=== PATIENT | female | born 1945 | race Caucasian/White ===

== ENCOUNTER → 2017-02-09 | Outpatient (CLI) | payer OTHER ==
[~2017-02-09] MED LIST: CALC667C4 PO; CLOP1TAB15 PO; CLR10 PO; MOME50SP5; MULT-506 PO; OMEG10007 PO; PRLSR20 PO; THEO200T27 PO; [UNRECOGNIZED DRUG - CODE] INH; [UNRECOGNIZED DRUG - OTHER] PO
--- NOTE | 2017-02-09 13:16 | MAMMOGRAPHY REPORT ---
BILATERAL DIGITAL SCREENING MAMMOGRAM WITH CAD: 02/09/2017 CLINICAL HISTORY: Routine screening. Patient has no complaints. TECHNIQUE: Bilateral CC and MLO views were obtained. Current study was also evaluated with a Compute r Aided Detection (CAD) system. COMPARISON: Comparison is made to exams dated: 02/09/2016 mammogram, 02/05/2015 mammogram, 02/04/2014 m ammogram, 01/19/2013 mammogram, 01/04/2013 mammogram, and 12/01/2011 mammogram - [facility] enter. BREAST COMPOSITION: There are scattered areas of fibroglandular density in both breasts. FINDINGS: There are benign rim calcifications in the breasts. A stable ribbon-shaped biopsy marker c lip in the right breast. Minimal vascular calcification. No suspicious mass, architectural distorti on or cluster of microcalcifications is seen. IMPRESSION: ACR BI-RADS CATEGORY 1: NEGATIVE There is no mammographic evidence of malignancy. A 1 year screening mammogram is recommended. The pa tient will receive written notification of the results. Approximately 10% of breast cancers are not detected with mammography. A negative mammographic report should not delay biopsy if a clinically suggestive mass is present. Sasha Oneal M.D. ay/:02/09/2017 12:08:58 Senior Landscape Architect: Yakelin CLIFTON(R)(Hazel)(PATY), [facility] letter sent: Normal 1/2 BI-RADS Code: ACR BI-RADS Category 1: Negative
== END | disposition home or self-care (01) ==
LOC: C.MAMM 11:07
PROVIDERS: ATTEND Internal Medicine
DX: Z12.31 Encounter for screening mammogram for malignant neoplasm of breast (principal)

== ENCOUNTER 2023-03-03 15:37 | Inpatient (IN) ==
--- NOTE | 2023-03-03 16:03 | ED Triage Note ---
Date of Service March 03, 2023 History of Present Illness This patient was briefly evaluated while in triage. An abbreviated physical exam was performed. This patient is a 77-year-old Female who presents to the ED for evaluation of an abnormal CT scan. She was recently treated for diverticulitis and finished her antibiotics last week. She was still having pain and her outpatient provider ordered a CT scan which showed an abscess. She was sent in for evaluation. Physical Exam VITALS: Vitals are noted on the nurse's note and reviewed by myself. GENERAL: This is a 77-year-old female, in no acute distress, well-developed well-nourished. HEART: Regular rate and rhythm without murmurs gallops or rubs. LUNGS: Clear to auscultation bilaterally without wheezes, rales or rhonchi. ABDOMEN: Tenderness in the RLQ. NEURO: Patient was alert and oriented to person place and time. Initial orders for labs and / or imaging were placed and patient was placed in the waiting area until a bed is available. Please see further documentation for the full ED course.
--- NOTE | 2023-03-03 16:43 | History & Physical Report ---
Date of Service March 03, 2023 Assessment & Plan (1) Diverticulitis: (2) Abscess of sigmoid colon: Plan: - Admit to med surg with tele - Consult general surgery and GI - Obtain Blood cultures x 2, lactic acid, lipase, CBC w/ diff, UA --- WBC was 7.8 outpatient and today is 7.9, lactate 1.7 - NPO, meds and sips/chips ok - LR at 80 ml/hr for hydration - Obtain EKG and CXR 1view - IV antibiotics to start - zosyn IV and vanc for failure of outpt antibiotics, previous hospitalization, and now with abscess - Check MRSA swab - CT abd pelvis was done earlier today as outpatient, 03/03 and showed an abscess in the sigmoid colon along with diverticulitis. IMPRESSION: 1. Diverticulitis of the sigmoid colon with an abscess abutting the left aspect of the distal sigmoid colon measuring 3.2 x 2.0 x 3.4 cm. 2. Mild nonspecific gallbladder wall thickening. 3. Small hiatal hernia. 4. Narrowing at the origin of the celiac axis, likely due to a combination of median arcuate ligament compression and atherosclerotic changes. (3) Hypertension: Plan: - Chronic, stable - Cont metoprolol succinate 25 mg QAM, BP slightly elevated at 140/83, monitor - Tachycardia also present likely due to the above (4) Hyperlipidemia: Plan: - Chronic, stable - Cont fish oil, rosuvastatin (5) Asthma: Plan: - Check CXR - COPD is documented in [facility] outpt chart - does not seem like this as she is not on inhalers, never smoked, may need to look further to see if PFTs were conducted. - Chronic cough, minimal sputum production - Does not wear supplemental o2 at baseline (6) Degenerative arthritis of knee, bilateral: Plan: - Chronic, stable (7) GERD (gastroesophageal reflux disease): Plan: - Chronic, stable cont omeprazole DVT ppx: teds, scds, no chemical ppx in the setting of possible procedure Lines: Obtain 2 PIV GI/FEN: NPO, continue LR at 80 ml/hr CODE: FULL Dispo: From home, likely to remain in the hospital x 1-2 days History of Present Illness Chief Complaint: Abdominal pain Primary Care Provider: Manoj Weber, DO This is a 77 year old female with a history of Asthma, COPD, CAD, HTN, Hyperlipidemia, osteoarthritis and GERD who presented to PCP office on 03/02 for continued abdominal pain. Per chart review, it appears she was treated initially on 02/07 with cipro/flagyl by PCP when her abdominal pain and constipation had been present for a week alre madi at that point. Patient was admitted to [facility] 02/10/2023- 02/14/2023 and diagnosed with Diverticulitis. She was treated with antibiotics for 10 days with cefdinir and flagyl, which finished on 02/21. Pt was referred to follow up with GI for an outpatient colonoscopy in about 6 weeks. Cholestyramine was added to her regimen as her bowels switched to being diarrhea, and was treated with such for loose stools at that time. She represented to her PCP office for hospital follow up yesterday on 03/02 and states that lower abdominal pain and loss of appetite were still present. Initially things were a little, better, but never completely resolved. She still has dull achey RLQ pain and loose stools, no blood. She is moving her bowels up to 2-3 times daily, intermittent nausea, and last night vomited mucous, + chills. She was able to take her metoprolol, probiotic, and omeprazole today, but otherwise has not been able to take her vitamins due to her stomach issues. No chest pain or shortness of breath are present. WBC from outpatient labs was 7.85 yesterday, she is afebrile here. CT abd pelvis was done earlier today, 03/03 and showed an abscess in the sigmoid colon along with diverticulitis. Allergies Allergy/AdvReac Type Severity Reaction Status Date / Time amoxicillin Allergy Severe Itching Unverified 02/10/23 20:35 aspirin Allergy Mild wheeze Verified 02/10/23 20:35 Home Medications Medication Instructions Recorded Confirmed Type calcium acetate(phosphat bind) 667 667 mg PO HS ##0 11/12/10 03/03/23 History mg tablet multivitamin 1 tab PO DAILY ##0 11/12/10 03/03/23 History omega 7-jme-kdt-fish oil 1,000 mg 1 cap PO DAILY ##0 11/12/10 03/03/23 History (120 mg-180 mg) capsule (Fish Oil) omeprazole 20 mg capsule,delayed 20 mg PO BID ##0 11/12/10 03/03/23 History release cholecalciferol (vitamin D3) 25 1,000 unit PO DAILY 01/25/19 03/03/23 History mcg (1,000 unit) capsule (Vitamin D3) metoprolol succinate 25 mg 25 mg PO QAM 01/25/19 03/03/23 History tablet,extended release 24 hr montelukast 10 mg tablet 10 mg PO HS 01/25/19 03/03/23 History ascorbic acid (vitamin C) 250 mg 250 mg PO QAM 06/01/19 03/03/23 History chewable tablet (Vitamin C) fluticasone propionate 50 1 spray intranasal DAILY 06/01/19 03/03/23 History mcg/actuation nasal spray,suspension (Flonase Allergy Relief) glucosamine-chondroitin 250 mg-200 1 tab PO QAM 06/01/19 03/03/23 History mg tablet (Osteo Bi-Flex) denosumab 60 mg/mL subcutaneous 60 mg subcut .[id number] 02/10/23 03/03/23 History syringe (Prolia) fluticasone fur. 200 mcg-umeclid 1 inh inhalation PM 02/10/23 03/03/23 History 62.5 mcg-vilant 25 mcg inhalat.powder (Trelegy Ellipta) rosuvastatin 20 mg tablet 20 mg PO HS 02/10/23 03/03/23 History Lactobacillus acidophilus 1 1,000 mmu cells PO DAILY #7 caps 02/14/23 03/03/23 Rx billion cell capsule cholestyramine-aspartame 4 gram 4 g PO BID@1000,2200 PRN diarrhea 02/14/23 03/03/23 Rx oral powder for susp in a packet #10 ea (Prevalite) ondansetron 4 mg disintegrating 4 mg PO DAILY PRN nausea and 02/14/23 03/03/23 Rx tablet vomiting #10 tabs Past Med/Surg History Medical History (Updated 03/03/23 @ 17:46 by Sushma Brown PA-C) Degenerative arthritis of knee, bilateral GERD (gastroesophageal reflux disease) Hyperlipidemia Hypertension Osteoarthritis Trochanteric bursitis, right hip Surgical History History of open reduction and internal fixation (ORIF) procedure RIGHT HIP Hx of colonoscopy Hx of sinus surgery Family History Other Family history non-contributory Social History Smoking Status: Never smoker Tobacco Type: Cigarettes Second Hand Exposure: No; Do You Dip or Chew Tobacco: No; Hx Alcohol Use: Yes Alcohol type: wine Hx Substance Use: No Preferred Language: Faroese Communication Ability: Effective Drive Tester Required: No Beliefs That Will Affect Care: None Current Living Situation: Spouse Feels Safe at Home: Yes Assistive Devices: Cane and Walker Review of Systems Review of Systems: Constitutional: + fever, sweats and chills Eyes: No diplopia, no worsening or blurred vision ENT: normal hearing, no trouble swallowing Respiratory: + cough, + occasional sputum, dyspnea with minimal exertion but reports asthma/COPD Cardiovascular: No chest pain, tightness or palpitations Abdomen: As per HPI : no dysuria or hematuria Musculoskeletal: No joint pain, calf pain, swelling Neurologic: No weakness, numbness/tingling, or balance problems Psychiatric: No anxiety or depression Skin: No rash or itch Physical Exam Physical Exam: Please refer to attending addendum for physical exam. Results & Data Results & Data Vital Signs (Past 12 Hours) Vital Signs Temp Pulse Resp BP Pulse Ox O2 Del Method 03/03/23 16:02 36.4 C L 113 H 17 140/83 93 Room Air Laboratory Results 03/03/23 16:44 Aerobic Blood Culture - Pending Blood Anaerobic Blood Culture - Pending 03/03/23 16:44 Aerobic Blood Culture - Pending Blood Anaerobic Blood Culture - Pending 03/03/23 03/03/23 03/03/23 16:44 16:44 16:44 WBC 7.98 RBC 4.45 Hgb 12.8 Hct 39.6 MCV 89.0 MCH 28.8 MCHC 32.3 RDW Std Deviation 44.6 RDW Coeff of Edgard 13.6 Plt Count 446 H MPV 9.2 L Immature Gran % (Auto) 0.3 Neut % (Auto) 67.7 Lymph % (Auto) 24.9 Slope % (Auto) 6.1 Eos % (Auto) 0.4 Baso % (Auto) 0.6 Neut # (Auto) 5.40 Lymph # (Auto) 1.99 Slope # (Auto) 0.49 Eos # (Auto) 0.03 Baso # (Auto) 0.05 Immature Gran # (Auto) 0.02 Sodium 135 L Potassium 3.8 Chloride 101 Carbon Dioxide 22 Anion Gap 12 H BUN 7 Creatinine 0.42 L Est Cr Clr Drug Dosing 104.7 Est GFR ( Amer) 115.4 Est GFR (Non-Af Amer) 99.6 BUN/Creatinine Ratio 16.7 Glucose 82 Lactate 1.2 Calcium 8.8 Total Bilirubin 0.6 AST 20 ALT 10 Alkaline Phosphatase 70 Total Protein 7.1 Albumin 3.8 Globulin 3.3 Albumin/Globulin Ratio 1.2 Lipase [address] ABDOMEN/PELVIS FROM OUTPATIENT EXAM: CT ABD/PELVIS W IV AND W ORAL CONTRAST DATE TIME: 03/03/2023 - 03/03/2023 11:45 am HISTORY: 77 y/o F Diverticulitis, no improvement in pain post abx. TECHNIQUE: CT of the Abdomen and Pelvis was performed with intravenous contrast. Positive oral contrast was administered. COMPARISON: CT abdomen pelvis 03/03/2010. FINDINGS: LOWER CHEST: Bibasilar subsegmental atelectatic changes. LIVER: Within normal limits. BILE DUCTS: Normal caliber. GALLBLADDER: Mild nonspecific gallbladder wall thickening. SPLEEN: Within normal limits. PANCREAS: Within normal limits. ADRENALS: Within normal limits. KIDNEYS/URETERS: Symmetric renal enhancement. A few bilateral renal cysts and additional subcentimeter hypodense bilateral renal foci too small to characterize. No hydronephrosis. BLADDER: Within normal limits. REPRODUCTIVE ORGANS: Uterus and adnexa are within normal limits. BOWEL: Small hiatal hernia. Colonic diverticulosis with fatty inflammatory changes about the distal sigmoid colon and with a rim enhancing collection measuring approximately 3.2 x 2.0 x 3.4 cm abutting the left aspect of the distal sigmoid colon (4, 148). PERITONEUM: No ascites. VESSELS: Atherosclerotic changes. No abdominal aortic aneurysm. Narrowing at the origin of the celiac axis, likely due to a combination of median arcuate ligament compression and atherosclerotic changes. RETROPERITONEUM: No lymphadenopathy. ABDOMINAL WALL: Within normal limits. BONES: Status post right hip fixation with 3 pins. Degenerative changes of the spine. Grade 1 retrolisthesis of L2 on L3, L3 on L4, and L4 on L5. IMPRESSION IMPRESSION: 1. Diverticulitis of the sigmoid colon with an abscess abutting the left aspect of the distal sigmoid colon measuring 3.2 x 2.0 x 3.4 cm. 2. Mild nonspecific gallbladder wall thickening. 3. Small hiatal hernia. 4. Narrowing at the origin of the celiac axis, likely due to a combination of median arcuate ligament compression and atherosclerotic changes. Code Status & VTE Plan Code Status Full code - discussed with the patient at bedside Supervising Physician Co-Signing Physician Notes 77 year old female with a history of Asthma, COPD, CAD, HTN, Hyperlipidemia, osteoarthritis and GERD who presented to PCP office on 03/02 for continued abdominal pain Was recently hospitalized for acute diverticulitis and complete antibiotic treatment. Reports worsening lower abd pain especially on Right, anorexia, nausea, vomiting Was evaluated by PCP and sent to ER after outpatient CT A/P showed sigmoid diverticulities with abscess 3.2 x 2 x 3.4 cm On exam General: Elderly woman in no distress Eyes: PERRL, conjunctivae normal, not pale, anicteric sclerae, EOM intact bilaterally ENMT: External ear and nose normal, oropharynx normal Respiratory: Normal respiratory effort, no respiratory distress, lungs clear to auscultation, no crackles and no wheezes Cardiovascular: Tachycardic, normal rhythm, S1 S2 Gastrointestinal (Abdomen): Abdomen is not distended, soft, +tenderness in suprapubic area and RLQ, no guarding, no palpable hepatosplenomegaly, normal bowel sounds Musculoskeletal: No pedal edema Genitourinary: No CVA tenderenss Neurologic: Alert and oriented x 3, No focal weakness, sensation grossly intact Psychiatric: Euthymic affect Complicated Sigmoid diverticulitis with abscess Start vancomycin and zosyn Follow up infectious workup Keep NPO IVF GI consult Gen surg consult
[2023-03-03] MEDS ORDERED: LACTATED RINGER'S 1,000 ML IV SCH (16:45)
[2023-03-03 17:03] LABS: Basophils # (auto) 0.05 K/uL (0.00-0.20); Basophils % (auto) 0.6 %; Eosinophils # (auto) 0.03 K/uL (0.00-0.50); Eosinophils % (auto) 0.4 %; Hematocrit (blood only) 39.6 % (37.0-47.0); Hemoglobin 12.8 g/dl (12.0-16.0); Immature Granulocytes # (auto) 0.02 K/uL (0.01-0.20); Immature Granulocytes % (auto) 0.3 %; Lymphocytes # (auto) 1.99 K/uL (1.20-3.40); Lymphocytes % (auto) 24.9 %; Mean Corpuscular Hemoglobin 28.8 pg (25.0-34.0); Mean Corpuscular Hgb Conc 32.3 g/dL (32.0-36.0); Mean Platelet Volume 9.2 fL (9.4-12.4); Monocytes # (auto) 0.49 K/uL (0.11-0.59); Monocytes % (auto) 6.1 %; Neutrophils % (auto) 67.7 %; Platelet Count 446 K/uL (130-400); RDW Coefficient of Variation 13.6 % (11.5-14.5); RDW Standard Deviation 44.6 fL (36.4-46.3); Red Blood Count 4.45 M/uL (4.20-5.40); White Blood Count 7.98 K/ul (4.8-10.8)
[2023-03-03] MEDS ORDERED: VANCOMYCIN CONSULT ACTIVE PRN (17:16)
[2023-03-03 17:24] LABS: Albumin Globulin Ratio 1.2 (0.9-2); Albumin Level 3.8 gm/dl (3.4-5.0); BUN Creatinine Ratio 16.7 (10-20); Bilirubin,Total 0.6 mg/dl (0.2-1.0); Calcium 8.8 mg/dl (8.6-10.3); Creatinine Clr Calc Pharmacy 104.7 ml/min; Est GFR (African American) 115.4 ml/min; Est GFR (Non-African American) 99.6 ml/min; Globulin 3.3 gm/dl (2.5-4.0); Potassium 3.8 mmol/L (3.5-5.1); Total Protein 7.1 gm/dl (6.0-8.3)
--- NOTE | 2023-03-03 17:29 | Emergency Department Note ---
ED Provider Note History of Present Illness Chief Complaint: Referred by Doctor Stated Complaint: GARY NEEDS DRAINDED Time Seen by Provider: 03/03/23 16:13 This patient is a 77-year-old Female who presents to the ED for evaluation of an abnormal CT scan. She was recently treated for diverticulitis and finished her antibiotics last week. She was still having pain and her outpatient provider ordered a CT scan which showed an abscess. She was sent in for evaluation. She denies any fevers. She is having pain in the right lower abdomen. Denies nausea/vomiting. Home Medications Medication Instructions Recorded Confirmed Type calcium acetate(phosphat bind) 667 667 mg PO HS ##0 11/12/10 03/03/23 History mg tablet multivitamin 1 tab PO DAILY ##0 11/12/10 03/03/23 History omega 3-zjp-sfv-fish oil 1,000 mg 1 cap PO DAILY ##0 11/12/10 03/03/23 History (120 mg-180 mg) capsule (Fish Oil) omeprazole 20 mg capsule,delayed 20 mg PO BID ##0 11/12/10 03/03/23 History release cholecalciferol (vitamin D3) 25 1,000 unit PO DAILY 01/25/19 03/03/23 History mcg (1,000 unit) capsule (Vitamin D3) metoprolol succinate 25 mg 25 mg PO QAM 01/25/19 03/03/23 History tablet,extended release 24 hr montelukast 10 mg tablet 10 mg PO HS 01/25/19 03/03/23 History ascorbic acid (vitamin C) 250 mg 250 mg PO QAM 06/01/19 03/03/23 History chewable tablet (Vitamin C) fluticasone propionate 50 1 spray intranasal DAILY 06/01/19 03/03/23 History mcg/actuation nasal spray,suspension (Flonase Allergy Relief) glucosamine-chondroitin 250 mg-200 1 tab PO QAM 06/01/19 03/03/23 History mg tablet (Osteo Bi-Flex) denosumab 60 mg/mL subcutaneous 60 mg subcut .[id number] 02/10/23 03/03/23 History syringe (Prolia) fluticasone fur. 200 mcg-umeclid 1 inh inhalation PM 02/10/23 03/03/23 History 62.5 mcg-vilant 25 mcg inhalat.powder (Trelegy Ellipta) rosuvastatin 20 mg tablet 20 mg PO HS 02/10/23 03/03/23 History Lactobacillus acidophilus 1 1,000 mmu cells PO DAILY #7 caps 02/14/23 03/03/23 Rx billion cell capsule cholestyramine-aspartame 4 gram 4 g PO BID@1000,2200 PRN diarrhea 02/14/23 03/03/23 Rx oral powder for susp in a packet #10 ea (Prevalite) ondansetron 4 mg disintegrating 4 mg PO DAILY PRN nausea and 02/14/23 03/03/23 Rx tablet vomiting #10 tabs Allergies Allergy/AdvReac Type Severity Reaction Status Date / Time amoxicillin Allergy Severe Itching Unverified 02/10/23 20:35 aspirin Allergy Mild wheeze Verified 02/10/23 20:35 Past Med/Surg History Medical History Degenerative arthritis of knee, bilateral GERD (gastroesophageal reflux disease) Hyperlipidemia Hypertension Osteoarthritis Trochanteric bursitis, right hip Surgical History History of open reduction and internal fixation (ORIF) procedure RIGHT HIP Hx of colonoscopy Hx of sinus surgery Family History Other Family history non-contributory Social History Smoking Status: Former smoker Tobacco Type: Cigarettes Smoking End Date: 30+ years ago; Second Hand Exposure: No; Do You Dip or Chew Tobacco: No; Hx Alcohol Use: Yes Alcohol type: wine Hx Substance Use: No Preferred Language: Burmese Communication Ability: Effective Steak Sauce Maker Required: No Beliefs That Will Affect Care: None Current Living Situation: Spouse Current Living Situation Comment: lives at home w Other Information That Helps Us Care for You: No Feels Safe at Home: Yes Safety Concerns: Feels Safe At This Time Assistive Devices: Glasses Physical Exam Vital Signs Vital Signs - 24 hr 03/03/23 16:02 Temperature 36.4 C L Temperature Source Temporal Artery Scan Pulse Rate 113 H Respiratory Rate 17 Respiratory Effort / Characteristics Non-Labored Respiratory Depth Normal Blood Pressure 140/83 Blood Pressure Mean 102 Pulse Oximetry 93 Oxygen Delivery Method Room Air Sepsis Recent Fever Within 48 Hours No Sepsis New/Unexplained Change in Mental Status No Sepsis Action Taken by Nursing No Action Required VITALS: Vitals are noted on the nurse's note and reviewed by myself. GENERAL: This is a 77-year-old, in no acute distress, nondiaphoretic, well- developed well-nourished. SKIN: The skin was without rashes. MOUTH: Mucous membranes moist. HEART: Regular rate and rhythm without murmurs gallops or rubs. LUNGS: Clear to auscultation bilaterally without wheezes, rales or rhonchi. ABDOMEN: Positive bowel sounds x 4. Soft, tenderness in the right lower quadrant. No guarding or rebound tenderness. NEURO: Patient was alert and oriented to person place and time. Course Administered Medications Lactated Ringer's (Lr) 1,000 mls @ 100 mls/hr IV .Q10H ALFREDA Stop: 03/04/23 03:04 Last Admin: 03/03/23 19:23 Dose: 100 mls/hr Documented By: SAB Pantoprazole Sodium 40 mg/ (Syringe) 10 mls @ 5 mls/min IV BID ALFREDA Stop: 04/02/23 20:59 Last Admin: 03/03/23 21:17 Dose: 5 mls/min Documented By: SAB Vancomycin HCl 1,250 mg/ (Sodium Chloride) 275 mls @ 200 mls/hr IV Q12H ALFREDA Stop: 03/14/23 00:00 Last Admin: 03/04/23 00:31 Dose: 200 mls/hr Documented By: RMB Discontinued Medications Piperacillin Sod/Tazobactam (Sod 4.5 gm/ Dextrose) 100 mls @ 200 mls/hr IV NOW STA; Protocol Stop: 03/03/23 18:21 Last Infusion: 03/03/23 18:41 Dose: 0 mls/hr Documented By: Admin: 03/03/23 18:06 Dose: 200 mls/hr Documented By: NRNataliia Vancomycin HCl 1,750 mg/ (Sodium Chloride) 535 mls @ 200 mls/hr IV ONE ONE Stop: 03/03/23 20:40 Last Admin: 03/03/23 18:42 Dose: 200 mls/hr Documented By: NRB Medical Decision Making Differential Diagnosis Appendicitis, ovarian cyst, ovarian torsion, ectopic , TOA, PID, infections, diverticulitis, UTI, obstruction, mesenteric ischemia, aortic pathology, inflammatory bowel disease, renal colic, PUD, pancreatitis, biliary pathology, hernia, volvulus, constipation, as well as other pathologies. Home Medications was personally reviewed by me Laboratory Data Attestation: I reviewed the patient's lab results. 03/03/23 16:44 03/03/23 16:44 Lab Results 03/03/23 03/03/23 03/03/23 Range/Units 16:44 16:44 16:44 WBC 7.98 (4.8-10.8) K/ul RBC 4.45 (4.20-5.40) M/uL Hgb 12.8 (12.0-16.0) g/dl Hct 39.6 (37.0-47.0) % MCV 89.0 (80.0-100.0) fL MCH 28.8 (25.0-34.0) pg MCHC 32.3 (32.0-36.0) g/dL RDW Std Deviation 44.6 (36.4-46.3) fL RDW Coeff of Edgard 13.6 (11.5-14.5) % Plt Count 446 H (130-400) K/uL MPV 9.2 L (9.4-12.4) fL Immature Gran % (Auto) 0.3 % Neut % (Auto) 67.7 % Lymph % (Auto) 24.9 % Amador % (Auto) 6.1 % Eos % (Auto) 0.4 % Baso % (Auto) 0.6 % Neut # (Auto) 5.40 (1.40-6.50) K/uL Lymph # (Auto) 1.99 (1.20-3.40) K/uL Amador # (Auto) 0.49 (0.11-0.59) K/uL Eos # (Auto) 0.03 (0.00-0.50) K/uL Baso # (Auto) 0.05 (0.00-0.20) K/uL Immature Gran # (Auto) 0.02 (0.01-0.20) K/uL Sodium 135 L (136-145) mmol/L Potassium 3.8 (3.5-5.1) mmol/L Chloride 101 (98-107) mmol/L Carbon Dioxide 22 (21-32) mmol/L Anion Gap 12 H (3-11) BUN 7 (6-23) mg/dl Creatinine 0.42 L (0.6-1.2) mg/dl Est Cr Clr Drug Dosing 104.7 ml/min Est GFR ( Amer) 115.4 ml/min Est GFR (Non-Af Amer) 99.6 ml/min BUN/Creatinine Ratio 16.7 (10-20) Glucose 82 (70-99(Fasting)) mg/dl Lactate 1.2 (0.4-2.0) mmol/L Calcium 8.8 (8.6-10.3) mg/dl Total Bilirubin 0.6 (0.2-1.0) mg/dl AST 20 (13-39) U/L ALT 10 (7-52) U/L Alkaline Phosphatase 70 (34-104) U/L Total Protein 7.1 (6.0-8.3) gm/dl Albumin 3.8 (3.4-5.0) gm/dl Globulin 3.3 (2.5-4.0) gm/dl Albumin/Globulin Ratio 1.2 (0.9-2) Lipase 14 (11-82) U/L Nasal Screen MRSA (PCR) (Negative) 03/03/23 Range/Units Unknown WBC (4.8-10.8) K/ul RBC (4.20-5.40) M/uL Hgb (12.0-16.0) g/dl Hct (37.0-47.0) % MCV (80.0-100.0) fL MCH (25.0-34.0) pg MCHC (32.0-36.0) g/dL RDW Std Deviation (36.4-46.3) fL RDW Coeff of Edgard (11.5-14.5) % Plt Count (130-400) K/uL MPV (9.4-12.4) fL Immature Gran % (Auto) % Neut % (Auto) % Lymph % (Auto) % Amador % (Auto) % Eos % (Auto) % Baso % (Auto) % Neut # (Auto) (1.40-6.50) K/uL Lymph # (Auto) (1.20-3.40) K/uL Amador # (Auto) (0.11-0.59) K/uL Eos # (Auto) (0.00-0.50) K/uL Baso # (Auto) (0.00-0.20) K/uL Immature Gran # (Auto) (0.01-0.20) K/uL Sodium (136-145) mmol/L Potassium (3.5-5.1) mmol/L Chloride (98-107) mmol/L Carbon Dioxide (21-32) mmol/L Anion Gap (3-11) BUN (6-23) mg/dl Creatinine (0.6-1.2) mg/dl Est Cr Clr Drug Dosing ml/min Est GFR ( Amer) ml/min Est GFR (Non-Af Amer) ml/min BUN/Creatinine Ratio (10-20) Glucose (70-99(Fasting)) mg/dl Lactate (0.4-2.0) mmol/L Calcium (8.6-10.3) mg/dl Total Bilirubin (0.2-1.0) mg/dl AST (13-39) U/L ALT (7-52) U/L Alkaline Phosphatase (34-104) U/L Total Protein (6.0-8.3) gm/dl Albumin (3.4-5.0) gm/dl Globulin (2.5-4.0) gm/dl Albumin/Globulin Ratio (0.9-2) Lipase (11-82) U/L Nasal Screen MRSA (PCR) Negative (Negative) Imaging Data Attestation: I personally reviewed and interpreted this imaging study as follows: Radiologist's Impression: Chest X-Ray 03/03/23 17:16 XR chest 1V portable CLINICAL HISTORY: Cough, LONG TECHNIQUE: Single frontal radiograph of the chest was obtained. Comparison: Comparison is made to chest radiograph 01/25/2019 FINDINGS: No lines and tubes are seen. Calcified aortic knob is seen. Right lower lung atelectasis is seen. No evidence of pleural effusion or pneumothorax. IMPRESSION: No acute abnormalities and in particular no radiographic evidence of pneumonia. ACT 112: Negative or not required by law. Electronically signed by: Ramiro Russell M.D. 03/03/2023 5:53 PM MDM Narrative The patient is a 77-year-old female who presents today complaining of abdominal pain and outpatient CT that showed a diverticular abscess. Patient was referred here for admission. Labs revealed no leukocytosis, anemia or concerning electrolyte abnormalities. Lactate was not elevated. Blood cultures drawn and pending. [facility] the patient for further care. Patient was given IV antibiotics. She verbalized understanding of the plan of care. Discharge Plan Visit Data Chief Complaint: Referred by Doctor Stated Complaint: ABSES NEEDS DRAINDED ED Provider: Cristina Grider ED Midlevel Provider: Apple Higgins Patient Disposition: Admitted As Inpatient Discharge Instructions Interventions: ED Discharge Assessment Last Done: 03/03/23 21:34
[2023-03-03] MEDS ORDERED: PIPERACILLIN/TAZOBACTAM 4.5 GM in DEXTROSE 5% MINI-B 100 ML IV STA (17:52)
--- NOTE | 2023-03-03 17:54 | XRay Report ---
XR chest 1V portable CLINICAL HISTORY: Cough, LONG TECHNIQUE: Single frontal radiograph of the chest was obtained. Comparison: Comparison is made to chest radiograph 01/25/2019 FINDINGS: No lines and tubes are seen. Calcified aortic knob is seen. Right lower lung atelectasis is seen. No evidence of pleural effusion or pneumothorax. IMPRESSION: No acute abnormalities and in particular no radiographic evidence of pneumonia. ACT 112: Negative or not required by law. Electronically signed by: Ramiro Russell M.D. 03/03/2023 5:53 PM
[2023-03-03] MEDS ORDERED: VANCOMYCIN HCL 1,750 MG in SODIUM CHLORIDE 0.9% 500 ML IV ONE (18:00)
[2023-03-03] MEDS ORDERED: ALBUTEROL 0.083% NEBU SOLN 3 ML VIAL NEB PRN (18:29)
--- NOTE | 2023-03-03 19:17 | Surgery Consultation ---
This case was discussed with the surgical PA I agree with the plan. Date of Consultation March 03, 2023 Assessment & Plan (1) Diverticulitis: The patient has been admitted on the hospitalist service. From a surgical perspective we recommend the following treatment: Implement n.p.o. status Provide IV fluid for hydration Provide analgesics Provide antiemetics Initiate antibiotics. The patient has received Zosyn in the emergency department and this should continue Follow serial lab I discussed with the patient that would be preferable to treat her in a conservative manner as outlined above. I discussed with her that any emergent surgical intervention would likely necessitate at least a temporary colostomy. The patient expressed interested in avoiding this at all possible. I did discuss with the patient that she does have an abscess near her sigmoid colon. I discussed with her that sometimes if the abscess becomes large enough interventional radiology can be consulted for consideration of percutaneous drainage. At the present time I would consider abscess borderline in size. We will continue current management as outlined above. If the patient fails to show significant clinical improvement or demonstrates clinical deterioration consideration be given to repeating a CT scan of her abdomen pelvis to see if there is any worsening of her diverticulitis or increased size of the abscess. Additional recommendations were forthcoming based on her clinical course as History of Present Illness Reason for Consultation: Diverticulitis with abscess History of Present Illness This is a 77-year-old female who was recently hospitalized at [facility] from 02/10/2023 through 02/14/2023. During this hospitalization the patient did have a CT scan of the abdomen pelvis on 02/10/2023 that showed moderate sigmoid diverticulitis. No intraperitoneal free air was noted on this study and there is no evidence of abscess the patient was hospitalized for sigmoid diverticulitis. The patient was treated in a conservative manner with bowel rest intravenous fluids and antibiotics. The patient was discharged home on a 7-day course of Flagyl and cefdinir and the patient says that she was compliant with this and completed her treatment on 02/21/2023. The patient notes that since discharge home she has not been feeling well so she contacted her primary care team for further recommendations The patient did have an outpatient CT scan performed orchestrated by her primary care team. This CAT scan was performed at an outpatient [facility] facility and I was therefore and I did review the images. I was however able to retrieve a CAT scan report. This showed the patient had sigmoid diverticulitis with an abscess abutting the left aspect of the distal sigmoid colon which measured 3.2 x 2 x 3.4 cm. Because of the findings on CT scan the patient was referred to the emergency department for further evaluation. I questioned the patient about how she is feeling and she notes that since her a forementioned hospitalization she has had poor appetite with some vague abdominal pain mostly in the lower abdomen without modifying factors. Throughout the day today she has had nausea and vomiting. She has had several loose bowel movements today but denies bright red blood per rectum or melena. She notes that her most recent oral intake was at approximate 5:00 AM this morning which was very little because of her poor appetite. She has had chills without fevers. The patient reports that she has had a colonoscopy in the past and to the best of her knowledge it revealed diverticular disease and hemorrhoids. Concerning prior surgical procedures on her abdomen she has had a tubal ligation. Since arrival to [facility] the patient has had labs and imaging which independent reviewed. Chest x-ray showed no evidence of pneumonia. I do not appreciate any free air in the intraperitoneal region. Labs include a CBC her white blood cell count, hemoglobin and hematocrit were normal. Her platelet count was 4 and 46,000. Chemistry profile showed sodium was 135 with a normal potassium. Her BUN and creatinine were 7 and 0.4. There is no elevation of her LFTs or lipase. At the time of my interview the patient was resting comfortably in bed and she was in no distress. Allergies Allergy/AdvReac Type Severity Reaction Status Date / Time amoxicillin Allergy Severe Itching Unverified 02/10/23 20:35 aspirin Allergy Mild wheeze Verified 02/10/23 20:35 Home Medications Medication Instructions Recorded Confirmed Type calcium acetate(phosphat bind) 667 667 mg PO HS ##0 11/12/10 03/03/23 History mg tablet multivitamin 1 tab PO DAILY ##0 11/12/10 03/03/23 History omega 1-hhs-ock-fish oil 1,000 mg 1 cap PO DAILY ##0 11/12/10 03/03/23 History (120 mg-180 mg) capsule (Fish Oil) omeprazole 20 mg capsule,delayed 20 mg PO BID ##0 11/12/10 03/03/23 History release cholecalciferol (vitamin D3) 25 1,000 unit PO DAILY 01/25/19 03/03/23 History mcg (1,000 unit) capsule (Vitamin D3) metoprolol succinate 25 mg 25 mg PO QAM 01/25/19 03/03/23 History tablet,extended release 24 hr montelukast 10 mg tablet 10 mg PO HS 01/25/19 03/03/23 History ascorbic acid (vitamin C) 250 mg 250 mg PO QAM 06/01/19 03/03/23 History chewable tablet (Vitamin C) fluticasone propionate 50 1 spray intranasal DAILY 06/01/19 03/03/23 History mcg/actuation nasal spray,suspension (Flonase Allergy Relief) glucosamine-chondroitin 250 mg-200 1 tab PO QAM 06/01/19 03/03/23 History mg tablet (Osteo Bi-Flex) denosumab 60 mg/mL subcutaneous 60 mg subcut .[id number] 02/10/23 03/03/23 History syringe (Prolia) fluticasone fur. 200 mcg-umeclid 1 inh inhalation PM 02/10/23 03/03/23 History 62.5 mcg-vilant 25 mcg inhalat.powder (Trelegy Ellipta) rosuvastatin 20 mg tablet 20 mg PO HS 02/10/23 03/03/23 History Lactobacillus acidophilus 1 1,000 mmu cells PO DAILY #7 caps 02/14/23 03/03/23 Rx billion cell capsule cholestyramine-aspartame 4 gram 4 g PO BID@1000,2200 PRN diarrhea 02/14/23 03/03/23 Rx oral powder for susp in a packet #10 ea (Prevalite) ondansetron 4 mg disintegrating 4 mg PO DAILY PRN nausea and 02/14/23 03/03/23 Rx tablet vomiting #10 tabs Patient History Medical History Degenerative arthritis of knee, bilateral GERD (gastroesophageal reflux disease) Hyperlipidemia Hypertension Osteoarthritis Trochanteric bursitis, right hip Surgical History History of open reduction and internal fixation (ORIF) procedure RIGHT HIP Hx of colonoscopy Hx of sinus surgery Family History Other Family history non-contributory Social History Smoking Status: Never smoker Tobacco Type: Cigarettes Second Hand Exposure: No; Do You Dip or Chew Tobacco: No; Hx Alcohol Use: Yes Alcohol type: wine Hx Substance Use: No Preferred Language: Mongolian Communication Ability: Effective Admissions Officer Required: No Beliefs That Will Affect Care: None Current Living Situation: Spouse Feels Safe at Home: Yes Assistive Devices: Cane and Walker Review of Systems Constitutional: + chills; no fever Ear, Nose, Mouth, Throat: no hearing loss Respiratory: no cough and no dyspnea Cardiovascular: no chest pain Gastrointestinal: as per Subjective / HPI Genitourinary: no dysuria Musculoskeletal: no back pain Integumentary: no rash Neurologic: no localized weakness Physical Exam Constitutional: WD/WN, vitals as above Eyes: no conjunctival abnormality ENMT: Ears: no hearing impairment and no external ear abnormality Mouth: no oropharynx abnormality Neck: trachea midline Respiratory: normal respiratory effort; no respiratory distress and no labored breathing Cardiovascular: Rate/Rhythm: regular rate and regular rhythm Vessels: dorsalis pedis pulses present and radial pulses present Gastrointestinal (Abdomen): Abdomen is minimally distended. Bowel sounds are present. At the time my exam there is minimal pain to palpation and there is no rebound tenderness or guarding. Her abdomen was not rigid Musculoskeletal: No calf tender Skin: no rashes Neurologic: moves all extremities Psychiatric: A+Ox3, euthymic affect Results & Data Vital Signs (Past 12 Hours) Vital Signs Temp Pulse Pulse Resp BP BP Pulse Ox 03/03/23 17:38 95 H 18 130/75 03/03/23 17:31 108 H 03/03/23 16:02 36.4 C L 113 H 17 140/83 93 O2 Del Method 03/03/23 17:38 03/03/23 17:31 03/03/23 16:02 Room Air PG Care Time/CCT Total # of Minutes Spent Total Time Spent with Patient: Total time spent is greater than 50% in coordination of care (as documented) at patient's floor/unit and/or counseling patient: Coding Level of Care Code 37200 INT INP/OBS CARE 3/75MIN Diagnoses Diverticulitis K57.92
[2023-03-03] MEDS: PANTOprazole 40 MG in SYRINGE 0 ML IV SCH (21:17)
[2023-03-03 22:00] LABS: Appearance Urine Clear (Clear); Bacteria Urine Automated Negative (Negative); Bilirubin Urine Negative (Negative); Blood Urine 1+ (Negative); Color Urine Yellow; Epithelial Cell Urine Auto >30 /lpf (0-5); Glucose Urine UA Negative (Negative); Ketones Urine 3+ (Negative); Leukocyte Esterase Urine 1+ (Negative); Nitrite Urine Negative (Negative); Protein Urine Negative (Negative); Urobilinogen Urine Negative (Negative)
[2023-03-04] MEDS ORDERED: ERTAPENEM SODIUM 1,000 MG in SYRINGE 0 ML IV SCH (02:00)
[2023-03-04] MEDS: ONDANSETRON INJ 2 MG/ML 2 ML VIAL IV PRN ×2 (02:42→18:17)
[2023-03-04] MEDS ORDERED: PROMETHAZINE HCL 12.5 MG in SODIUM CHLORIDE 0.9% 50 ML IV STA (03:31)
[2023-03-04 07:16] LABS: Hematocrit (blood only) 34.7 % (37.0-47.0); Hemoglobin 11.4 g/dl (12.0-16.0); Mean Corpuscular Hemoglobin 29.2 pg (25.0-34.0); Mean Corpuscular Hgb Conc 32.9 g/dL (32.0-36.0); Mean Corpuscular Volume 88.7 fL (80.0-100.0); Mean Platelet Volume 9.2 fL (9.4-12.4); Platelet Count 360 K/uL (130-400); RDW Coefficient of Variation 13.8 % (11.5-14.5); RDW Standard Deviation 44.5 fL (36.4-46.3); Red Blood Count 3.91 M/uL (4.20-5.40); White Blood Count 7.44 K/ul (4.8-10.8)
[2023-03-04 07:25] LABS: BUN Creatinine Ratio 9.2 (10-20); Calcium 7.6 mg/dl (8.6-10.3); Creatinine Clr Calc Pharmacy 67.8 ml/min; Est GFR (Non-African American) 86.2 ml/min; Potassium 3.6 mmol/L (3.5-5.1)
--- NOTE | 2023-03-04 08:41 | Pharmacy Report ---
Pharmacy PK ABX Note - Date of Service March 04, 2023 - Assessment and Plan Assessment 77 year old F receiving VANCOMYCIN + CEFEPIME + METRONIDAZOLE IV for treatment of diverticular abscess. Patient was recently admitted for diverticulitis and received inpatient IV abx (ceftriaxone + metronidazole) and was discharged on PO abx (cefdinir, metronidazole). Pertinent microbiologic data includes: BLCXs -pending; Urine cx - pending Day # 2 of antimicrobial therapy. Plan Vancomycin * Loading dose: 1750 mg IV x 1 evening of 03/03 * Maintenance dose: 1250 mg IV every 12 hours initiated overnight, however will change to 1250mg IV Q 18 hrs based upon most recent labs/data * Regimen is predicted to achieve target AUC/ETTA of 400-600 mg/L.hr with ~10% risk of nephrotoxicity * Random level ordered for: 1028 AM should therapy to continue Pharmacy will continue to follow and will adjust dose/frequency as necessary. Thank you. Pharmacy has transitioned to AUC monitoring for vancomycin. AUC/ETTA is the preferred PK/PD target and is associated with decreased risk of nephrotoxicity compared to traditional trough targets.
[2023-03-04] MEDS: METOPROLOL SUCC 25MG EXT REL TAB PO SCH (08:54)
[2023-03-04] MEDS: PANTOprazole 40 MG in SYRINGE 0 ML IV SCH ×2 (08:54→22:13)
[2023-03-04] MEDS: FLUTICASONE/VILANTEROL 100/25MCG 14 PUFFS/INHALER INH SCH (08:54)
[2023-03-04] MEDS: CEFEPIME 2,000 MG in SYRINGE 0 ML IV SCH ×3 (08:54→23:31)
--- NOTE | 2023-03-04 09:34 | Gastrointestinal Consultation ---
Date of Consultation March 04, 2023 Assessment & Plan (1) Abscess of sigmoid colon: (2) Diverticulitis: Pt is a 77 yo female w recent hx of uncomplicated rectosigmoid diverticulitis s/p antibx treatment, had ongoing abd pain, loss of appetite, chills, n/v symptoms. OP CT scan yesterday showed sigmoid colon diverticulitis w abscess abutting L distal colon measuring 3.2 x 2.0 x 3.4 cm. - CL diet, advance as tolerated - IV antibx support - Symptomatic management - Consult IR to consider drainage of abscess - Surgery following - GI to sign off; pls recall prn Supervising Physician Co-Signing Physician Notes I performed a history and physical examination of the patient today, including specifically on physical exam - soft abdomen. I have discussed the patient's management with the advanced practitioner. Please refer to the nurse practitioner's note for the documented findings and plan of care. Management of complicated acute diverticulitis with abscess is per surgical team. May consider IR drainage. From GI perspective, needs colonoscopy as OP in 2-3 months once healed. Recall GI if needed. History of Present Illness Reason for Consultation: Abdominal abscess Requesting Physician: Dr. Elijah Sanches Attending Physician: Dr. Kurtis Higuera History of Present Illness Pt is a 77 yo female w PMHx of asthma, COPD, CAD, HTN, HLD, OA, GERD who was referred by PCP to ED for ongoing abd pain. She was admitted here earlier this month for uncomplicated diverticulitis, and DC'd with 10 days of Cefdinir + Flagyl which she completed on 02/21. She had ongoing RLQ abd pain, loss of appetite, chills, n/v. OP CT abd/pelvis w contrast done in [facility] which showed sigmoid colon diverticulitis w abscess abutting L distal colon measuring 3.2 x 2.0 x 3.4 cm. Labs reviewed - no leukocytosis, H/H stable, no electrolyte imbalance, LFTs, lipase normal. Blood and urine culture pending. Allergies Allergy/AdvReac Type Severity Reaction Status Date / Time amoxicillin Allergy Severe Itching Unverified 02/10/23 20:35 aspirin Allergy Mild wheeze Verified 02/10/23 20:35 Home Medications Medication Instructions Recorded Confirmed Type calcium acetate(phosphat bind) 667 667 mg PO HS ##0 11/12/10 03/03/23 History mg tablet multivitamin 1 tab PO DAILY ##0 11/12/10 03/03/23 History omega 3-xlj-soc-fish oil 1,000 mg 1 cap PO DAILY ##0 11/12/10 03/03/23 History (120 mg-180 mg) capsule (Fish Oil) omeprazole 20 mg capsule,delayed 20 mg PO BID ##0 11/12/10 03/03/23 History release cholecalciferol (vitamin D3) 25 1,000 unit PO DAILY 01/25/19 03/03/23 History mcg (1,000 unit) capsule (Vitamin D3) metoprolol succinate 25 mg 25 mg PO QAM 01/25/19 03/03/23 History tablet,extended release 24 hr montelukast 10 mg tablet 10 mg PO HS 01/25/19 03/03/23 History ascorbic acid (vitamin C) 250 mg 250 mg PO QAM 06/01/19 03/03/23 History chewable tablet (Vitamin C) fluticasone propionate 50 1 spray intranasal DAILY 06/01/19 03/03/23 History mcg/actuation nasal spray,suspension (Flonase Allergy Relief) glucosamine-chondroitin 250 mg-200 1 tab PO QAM 06/01/19 03/03/23 History mg tablet (Osteo Bi-Flex) denosumab 60 mg/mL subcutaneous 60 mg subcut .[id number] 02/10/23 03/03/23 History syringe (Prolia) fluticasone fur. 200 mcg-umeclid 1 inh inhalation PM 02/10/23 03/03/23 History 62.5 mcg-vilant 25 mcg inhalat.powder (Trelegy Ellipta) rosuvastatin 20 mg tablet 20 mg PO HS 02/10/23 03/03/23 History Lactobacillus acidophilus 1 1,000 mmu cells PO DAILY #7 caps 02/14/23 03/03/23 Rx billion cell capsule cholestyramine-aspartame 4 gram 4 g PO BID@1000,2200 PRN diarrhea 02/14/23 03/03/23 Rx oral powder for susp in a packet #10 ea (Prevalite) ondansetron 4 mg disintegrating 4 mg PO DAILY PRN nausea and 02/14/23 03/03/23 Rx tablet vomiting #10 tabs Patient History Medical History Degenerative arthritis of knee, bilateral GERD (gastroesophageal reflux disease) Hyperlipidemia Hypertension Osteoarthritis Trochanteric bursitis, right hip Surgical History History of open reduction and internal fixation (ORIF) procedure RIGHT HIP Hx of colonoscopy Hx of sinus surgery Family History Other Family history non-contributory Social History Smoking Status: Former smoker Tobacco Type: Cigarettes Smoking End Date: 30+ years ago; Second Hand Exposure: No; Do You Dip or Chew Tobacco: No; Hx Alcohol Use: Yes Alcohol type: wine Hx Substance Use: No Preferred Language: Indonesian Communication Ability: Effective 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 Required: No Beliefs That Will Affect Care: None Current Living Situation: Spouse Current Living Situation Comment: lives at home w Other Information That Helps Us Care for You: No Feels Safe at Home: Yes Safety Concerns: Feels Safe At This Time Assistive Devices: Glasses Review of Systems Review of Systems: All systems reviewed & are unremarkable except as noted in HPI & below Physical Exam Constitutional: WD/WN, vitals as above well groomed and cooperative Eyes: PERRL, conjunctivae normal, anicteric sclerae ENMT: external ear and nose normal, oropharynx normal Respiratory: normal respiratory effort, lungs clear to auscultation Cardiovascular: RRR, no murmur, no edema Gastrointestinal (Abdomen): RLQ abd pain Skin: no rashes, warm and dry no jaundice Psychiatric: A+Ox3, euthymic affect Lymphatic: no lymphedema Results & Data Vital Signs (Past 12 Hours) Vital Signs Temp Pulse Pulse Pulse Resp BP BP 03/04/23 07:20 37.1 C 95 H 18 123/73 03/04/23 03:48 37.6 C H 100 H 20 133/80 03/04/23 02:12 91 H 03/03/23 21:48 37.1 C 115 H 18 134/77 03/04/23 00:33 37.0 C 102 H 20 112/61 Pulse Ox O2 Del Method 03/04/23 07:20 92 Room Air 03/04/23 03:48 94 Room Air 03/04/23 02:12 03/03/23 21:48 92 Room Air 03/04/23 00:33 92 Room Air
[2023-03-04] MEDS: metroNIDAZOLE 500 MG/100 ML BAG IV SCH ×3 (09:41→23:31)
[2023-03-04] MEDS: ACETAMINOPHEN 325 MG TAB PO PRN (11:25)
--- NOTE | 2023-03-04 12:47 | Hospitalist Progress Note ---
Date of Service March 04, 2023 Assessment & Plan (1) Diverticulitis: (2) Abscess of sigmoid colon: Plan: Patient presented with abdominal pain for several days. Recently admitted from 02/10 to 02/14 with sigmoid diverticulitis; managed conservatively; finished course of antibiotic Presented to her PCP office on the day of the admission with abdominal pain. CT abdomen pelvis done outpatient showed abscess in distal sigmoid colon measuring 3.2 x 2.0 x 3.4 cm. Admitted for IV antibiotics. CT abd pelvis was done earlier today as outpatient, 03/03 and showed an abscess in the sigmoid colon along with diverticulitis. IMPRESSION: 1. Diverticulitis of the sigmoid colon with an abscess abutting the left aspect of the distal sigmoid colon measuring 3.2 x 2.0 x 3.4 cm. 2. Mild nonspecific gallbladder wall thickening. 3. Small hiatal hernia. 4. Narrowing at the origin of the celiac axis, likely due to a combination of median arcuate ligament compression and atherosclerotic changes. Continue IV cefepime and Flagyl. As per IR; abscess is too small for drainage. Surgery on board; might repeat repeat imaging if fails to improve conservatively. Clear liquid diet (3) Hypertension: Plan: - Chronic, stable - Cont metoprolol succinate 25 mg QAM (4) Hyperlipidemia: Plan: - Chronic, stable - Cont fish oil, rosuvastatin (5) Asthma: Plan: - Chest x-ray done in admission personally reviewed no acute finding. - COPD is documented in [facility] outpt chart - does not seem like this as she is not on inhalers, never smoked, may need to look further to see if PFTs were conducted. - Chronic cough, minimal sputum production (6) Degenerative arthritis of knee, bilateral: Plan: - Chronic, stable (7) GERD (gastroesophageal reflux disease): Plan: - Chronic, stable cont omeprazole DVT ppx: Heparin Lines: GI/FEN: Clear liquid, CODE: FULL Dispo: From home, likely to remain in the hospital x 1-2 days Time spent evaluating patient, direct bedside care, chart review, placing orders, interpretation of diagnostic studies, discussion with consultants, patient, and family members, as well as other required patient management activities is 60 minutes Please note the above document was generated using voice recognition software. It may contain grammatical, syntax or spelling errors. Any formal questions or concerns about the content, text or information contained within the body of this dictation should be directly addressed to the provider for clarification Admission and Anticipated Discharge Date Admission Date: March 03, 2023 Subjective Seen and examined at bedside. She reports feeling nauseous. She also reports periumbilical abdominal pain. Review of Systems Review of Systems: All systems reviewed & are unremarkable except as noted in Subjective Physical Exam Physical Exam: Constitutional: WD/WN, vitals as above, NAD, sitting up in bed, pleasant, conversing easily Respiratory: normal respiratory effort, lungs clear to auscultation, no wheeze, rales, rhonchi. Normal insp/exp effort, no accessory muscle use Cardiovascular: RRR, no murmur, no edema Vessels: no JVD or carotid bruit Chest: normal inspection of chest Abdomen: Tenderness present in right lower quadrant; bowel sound present. Musculoskeletal: no cyanosis or clubbing, extremities motor strength 5/5 Skin: no rashes, warm and dry normal turgor Neurologic: PERRL, EOMI, accommodation nl, no face palsy, no dysarthria CN's II- XI intact bilaterally and moves all extremities Psychiatric: A+Ox3, euthymic affect Results & Data Results & Data Vital Signs (Past 12 Hours) Vital Signs Temp Pulse Pulse Resp BP BP Pulse Ox 03/04/23 11:31 37.2 C 70 17 115/67 96 03/04/23 07:20 37.1 C 95 H 18 123/73 92 03/04/23 03:48 37.6 C H 100 H 20 133/80 94 03/04/23 02:12 91 H O2 Del Method 03/04/23 11:31 Room Air 03/04/23 07:20 Room Air 03/04/23 03:48 Room Air 03/04/23 02:12 Laboratory Results Laboratory Results WBC 7.44 K/ul (4.8-10.8) 03/04/23 06:36 RBC 3.91 M/uL (4.20-5.40) L 03/04/23 06:36 Hgb 11.4 g/dl (12.0-16.0) L 03/04/23 06:36 Hct 34.7 % (37.0-47.0) L 03/04/23 06:36 MCV 88.7 fL (80.0-100.0) 03/04/23 06:36 MCH 29.2 pg (25.0-34.0) 03/04/23 06:36 MCHC 32.9 g/dL (32.0-36.0) 03/04/23 06:36 RDW Std Deviation 44.5 fL (36.4-46.3) 03/04/23 06:36 RDW Coeff of Edgard 13.8 % (11.5-14.5) 03/04/23 06:36 Plt Count 360 K/uL (130-400) 03/04/23 06:36 MPV 9.2 fL (9.4-12.4) L 03/04/23 06:36 Immature Gran % (Auto) 0.3 % 03/03/23 16:44 Neut % (Auto) 67.7 % 03/03/23 16:44 Lymph % (Auto) 24.9 % 03/03/23 16:44 [place] % (Auto) 6.1 % 03/03/23 16:44 Eos % (Auto) 0.4 % 03/03/23 16:44 Baso % (Auto) 0.6 % 03/03/23 16:44 Neut # (Auto) 5.40 K/uL (1.40-6.50) 03/03/23 16:44 Lymph # (Auto) 1.99 K/uL (1.20-3.40) 03/03/23 16:44 [place] # (Auto) 0.49 K/uL (0.11-0.59) 03/03/23 16:44 Eos # (Auto) 0.03 K/uL (0.00-0.50) 03/03/23 16:44 Baso # (Auto) 0.05 K/uL (0.00-0.20) 03/03/23 16:44 Immature Gran # (Auto) 0.02 K/uL (0.01-0.20) 03/03/23 16:44 Sodium 139 mmol/L (136-145) 03/04/23 06:36 Potassium 3.6 mmol/L (3.5-5.1) 03/04/23 06:36 Chloride 107 mmol/L (98-107) 03/04/23 06:36 Carbon Dioxide 22 mmol/L (21-32) 03/04/23 06:36 Anion Gap 10 (3-11) 03/04/23 06:36 BUN 6 mg/dl (6-23) 03/04/23 06:36 Creatinine 0.65 mg/dl (0.6-1.2) 03/04/23 06:36 Est Cr Clr Drug Dosing 67.8 ml/min 03/04/23 06:36 Est GFR ( Amer) 100.0 ml/min 03/04/23 06:36 Est GFR (Non-Af Amer) 86.2 ml/min 03/04/23 06:36 BUN/Creatinine Ratio 9.2 (10-20) L 03/04/23 06:36 Glucose 80 mg/dl (70-99(Fasting)) 03/04/23 06:36 Lactate 1.2 mmol/L (0.4-2.0) 03/03/23 16:44 Calcium 7.6 mg/dl (8.6-10.3) L 03/04/23 06:36 Total Bilirubin 0.6 mg/dl (0.2-1.0) 03/03/23 16:44 AST 20 U/L (13-39) 03/03/23 16:44 ALT 10 U/L (7-52) 03/03/23 16:44 Alkaline Phosphatase 70 U/L (34-104) 03/03/23 16:44 Total Protein 7.1 gm/dl (6.0-8.3) 03/03/23 16:44 Albumin 3.8 gm/dl (3.4-5.0) 03/03/23 16:44 Globulin 3.3 gm/dl (2.5-4.0) 03/03/23 16:44 Albumin/Globulin Ratio 1.2 (0.9-2) 03/03/23 16:44 Lipase 14 U/L (11-82) 03/03/23 16:44 Urine Color Yellow 03/03/23 21:30 Urine Appearance Clear (Clear) 03/03/23 21:30 Urine pH 6.0 (4.5-7.5) 03/03/23 21:30 Ur Specific [place] 1.020 (1.000-1.030) 03/03/23 21:30 Urine Protein Negative (Negative) 03/03/23 21:30 Urine Glucose (UA) Negative (Negative) 03/03/23 21:30 Urine Ketones 3+ (Negative) H 03/03/23 21:30 Urine Blood 1+ (Negative) H 03/03/23 21:30 Urine Nitrite Negative (Negative) 03/03/23 21:30 Urine Bilirubin Negative (Negative) 03/03/23 21:30 Urine Urobilinogen Negative (Negative) 03/03/23 21:30 Ur Leukocyte Esterase 1+ (Negative) H 03/03/23 21:30 Urine WBC (Auto) 10-30 /hpf (0-5) H 03/03/23 21:30 Urine RBC (Auto) 5-10 /hpf (0-4) H 03/03/23 21:30 U Hyaline Cast (Auto) 1-5 /lpf (0-5) 03/03/23 21:30 U Epithel Cells (Auto) >30 /lpf (0-5) H 03/03/23 21:30 Urine Bacteria (Auto) Negative (Negative) 03/03/23 21:30 Nasal Screen MRSA (PCR) Negative (Negative) 03/03/23 Unknown Impressions Chest X-Ray 03/03/23 17:16 XR chest 1V portable CLINICAL HISTORY: Cough, LONG TECHNIQUE: Single frontal radiograph of the chest was obtained. Comparison: Comparison is made to chest radiograph 01/25/2019 FINDINGS: No lines and tubes are seen. Calcified aortic knob is seen. Right lower lung atelectasis is seen. No evidence of pleural effusion or pneumothorax. IMPRESSION: No acute abnormalities and in particular no radiographic evidence of pneumonia. ACT 112: Negative or not required by law. Electronically signed by: Ramiro Russell M.D. 03/03/2023 5:53 PM
[2023-03-04] MEDS ORDERED: VANCOMYCIN HCL 1,250 MG in SODIUM CHLORIDE 0.9% 250 ML IV SCH ×2 (16:00)
--- NOTE | 2023-03-04 16:54 | Surgery Progress Note ---
Date of Service March 04, 2023 Assessment & Plan (1) Colonic diverticular abscess: Plan: Continue IV antibiotics. Remain on clear liquids today. Follow-up a.m. labs. Patient says she has a colonoscopy scheduled for June. Admission and Anticipated Discharge Date Admission Date: March 03, 2023 Subjective Patient seen this AM. She says she does feel better with decreased pain. Now she just notes some tenderness along her right side. She denies fevers chills and nausea. Says she does not have an appetite. She is tolerating liquids. Physical Exam Constitutional: average body habitus and healthy appearing; not ill appearing, not in distress and not diaphoretic Respiratory: normal respiratory effort; no respiratory distress, no labored breathing and does not use accessory muscles Gastrointestinal (Abdomen): Abdomen is soft, nondistended, minimally tender at the left lower quadrant and right side. No rebound tenderness. No guarding Neurologic: moves all extremities and awake; no focal motor deficits and not confused Results & Data Vital Signs (Past 12 Hours) Vital Signs Temp Pulse Pulse Resp BP Pulse Ox O2 Del Method 03/04/23 15:15 36.7 C 83 18 93/53 L 94 Room Air 03/04/23 13:42 106 H 03/04/23 11:31 37.2 C 70 17 115/67 96 Room Air 03/04/23 07:20 37.1 C 95 H 18 123/73 92 Room Air Laboratory Results WBC 7.44 PG Care Time/CCT Total # of Minutes Spent Total Time Spent with Patient: Total time spent is greater than 50% in coordination of care (as documented) at patient's floor/unit and/or counseling patient: Coding Level of Care Code 77553 SUB INP/OBS CARE 06/02MIN Diagnoses Colonic diverticular abscess K57.20
--- NOTE | 2023-03-04 21:29 | Electrocardiogram Report ---
Test Reason : Blood Pressure : / mmHG Vent. Rate : 108 BPM Atrial Rate : 108 BPM P-R Int : 126 ms QRS Dur : 072 ms QT Int : 346 ms P-R-T Axes : 086 015 269 degrees QTc Int : 463 ms Sinus tachycardia Low voltage QRS Abnormal ECG When compared with ECG of 25-JAN-2019 10:40, Vent. rate has increased BY 49 BPM T wave inversion now evident in Lateral leads QT has lengthened T wave inversion less evident in Anterior leads Confirmed by Venkata Kruger ([id number]) on 03/04/2023 9:29:13 PM Referred By: REFERRED SELF Confirmed By:Venkata Kruger
[2023-03-04] MEDS: MONTELUKAST SODIUM 10 MG TABLET PO SCH (22:12)
[2023-03-04] MEDS: ROSUVASTATIN CALCIUM 20 MG TAB PO SCH (22:12)
[2023-03-05] MEDS: ACETAMINOPHEN 325 MG TAB PO PRN ×2 (04:37→12:16)
[2023-03-05 06:18] LABS: Basophils # (auto) 0.04 K/uL (0.00-0.20); Basophils % (auto) 0.6 %; Eosinophils # (auto) 0.08 K/uL (0.00-0.50); Eosinophils % (auto) 1.3 %; Hematocrit (blood only) 33.2 % (37.0-47.0); Hemoglobin 10.9 g/dl (12.0-16.0); Immature Granulocytes # (auto) 0.02 K/uL (0.01-0.20); Immature Granulocytes % (auto) 0.3 %; Lymphocytes # (auto) 1.26 K/uL (1.20-3.40); Lymphocytes % (auto) 19.9 %; Mean Corpuscular Hemoglobin 29.1 pg (25.0-34.0); Mean Corpuscular Hgb Conc 32.8 g/dL (32.0-36.0); Mean Corpuscular Volume 88.8 fL (80.0-100.0); Mean Platelet Volume 9.2 fL (9.4-12.4); Monocytes % (auto) 9.5 %; Neutrophils # (auto) 4.34 K/uL (1.40-6.50); Neutrophils % (auto) 68.4 %; Platelet Count 313 K/uL (130-400); RDW Coefficient of Variation 13.7 % (11.5-14.5); RDW Standard Deviation 44.6 fL (36.4-46.3); Red Blood Count 3.74 M/uL (4.20-5.40); White Blood Count 6.34 K/ul (4.8-10.8)
[2023-03-05 06:41] LABS: BUN Creatinine Ratio 9.9 (10-20); Calcium 7.5 mg/dl (8.6-10.3); Creatinine Clr Calc Pharmacy 39.5 ml/min; Est GFR (African American) 55.9 ml/min; Est GFR (Non-African American) 48.2 ml/min; Potassium 3.6 mmol/L (3.5-5.1)
[2023-03-05] MEDS: metroNIDAZOLE 500 MG/100 ML BAG IV SCH ×2 (08:35→17:20)
[2023-03-05] MEDS: FLUTICASONE/VILANTEROL 100/25MCG 14 PUFFS/INHALER INH SCH (08:35)
[2023-03-05] MEDS: CEFEPIME 2,000 MG in SYRINGE 0 ML IV SCH ×2 (08:35→17:20)
[2023-03-05] MEDS: PANTOprazole 40 MG in SYRINGE 0 ML IV SCH ×2 (08:36→22:43)
[2023-03-05] MEDS: METOPROLOL SUCC 25MG EXT REL TAB PO SCH (08:36)
--- NOTE | 2023-03-05 09:50 | Surgery Progress Note ---
Date of Service March 05, 2023 Assessment & Plan (1) Colonic diverticular abscess: Plan: Clinically improving. Discussed with primary service okay to slowly advance her diet. Her white blood cell count is normal and she is afebrile. Plan is reimaging early next week which I agree with. Currently no indication for surgical intervention. (2) Abscess of sigmoid colon: Admission and Anticipated Discharge Date Admission Date: March 03, 2023 Subjective Patient seen. She is feeling better and denies abdominal pain. Even when walki ng to the bathroom she really does not have pain. She is tired of the clear liquid diet and has poor appetite secondary to it. She would like to try something more. Physical Exam Constitutional: WD/WN, vitals as above no acute distress and not ill appearing Eyes: PERRL, conjunctivae normal, anicteric sclerae EOM intact bilaterally ENMT: external ear and nose normal, oropharynx normal Ears: no hearing impairment Neck: trachea midline, no thyromegaly Respiratory: normal respiratory effort; no respiratory distress and does not use accessory muscles Cardiovascular: Rate/Rhythm: regular rate and regular rhythm Gastrointestinal (Abdomen): Soft. Mild right lower quadrant tenderness. No peritoneal signs Skin: no rashes, warm and dry Psychiatric: Orientation: alert, oriented x 3 and cooperative Results & Data Vital Signs (Past 12 Hours) Vital Signs Temp Pulse Pulse Resp BP Pulse Ox O2 Del Method 03/05/23 08:25 36.8 C 75 18 112/60 94 Room Air 03/05/23 07:18 87 03/05/23 05:05 86 03/05/23 02:16 36.7 C 92 H 18 130/69 96 Room Air 03/04/23 22:44 36.8 C 79 18 125/71 96 Room Air PG Care Time/CCT Total # of Minutes Spent Total Time Spent with Patient: Total time spent is greater than 50% in coordination of care (as documented) at patient's floor/unit and/or counseling patient: Coding Level of Care Code 35470 SUB INP/OBS CARE 2/35MIN Diagnoses Colonic diverticular abscess K57.20 Abscess of sigmoid colon K63.0
--- NOTE | 2023-03-05 11:31 | Hospitalist Progress Note ---
Date of Service March 05, 2023 Assessment & Plan (1) Diverticulitis: (2) Abscess of sigmoid colon: Plan: Patient presented with abdominal pain for several days. Recently admitted from 02/10 to 02/14 with sigmoid diverticulitis; managed conservatively; finished course of antibiotic Presented to her PCP office on the day of the admission with abdominal pain. CT abdomen pelvis done outpatient showed abscess in distal sigmoid colon measuring 3.2 x 2.0 x 3.4 cm. Admitted for IV antibiotics. CT abd pelvis was done earlier today as outpatient, 03/03 and showed an abscess in the sigmoid colon along with diverticulitis. IMPRESSION: 1. Diverticulitis of the sigmoid colon with an abscess abutting the left aspect of the distal sigmoid colon measuring 3.2 x 2.0 x 3.4 cm. 2. Mild nonspecific gallbladder wall thickening. 3. Small hiatal hernia. 4. Narrowing at the origin of the celiac axis, likely due to a combination of median arcuate ligament compression and atherosclerotic changes. Continue IV cefepime and Flagyl. As per IR; abscess is too small for drainage. Discussed with surgery; might repeat repeat imaging if fails to improve conservatively. Advance diet to clear liquid diet. (3) Hypertension: Plan: - Chronic, stable - Cont metoprolol succinate 25 mg QAM (4) Hyperlipidemia: Plan: - Chronic, stable - Cont fish oil, rosuvastatin (5) Asthma: Plan: - Chest x-ray done in admission personally reviewed no acute finding. - COPD is documented in [facility] outpt chart - does not seem like this as she is not on inhalers, never smoked. - Chronic cough, minimal sputum production (6) Degenerative arthritis of knee, bilateral: Plan: - Chronic, stable (7) GERD (gastroesophageal reflux disease): Plan: - Chronic, stable cont omeprazole DVT ppx: Heparin Lines: GI/FEN: Clear liquid, CODE: FULL Dispo: Patient hospitalized for complicated diverticulitis with abscess for IV antibiotic. Might need IR drainage depending on further imaging. Time spent evaluating patient, direct bedside care, chart review, placing orders, interpretation of diagnostic studies, discussion with consultants, patient, and family members, as well as other required patient management activities is 60 minutes Please note the above document was generated using voice recognition software. It may contain grammatical, syntax or spelling errors. Any formal questions or concerns about the content, text or information contained within the body of this dictation should be directly addressed to the provider for clarification Admission and Anticipated Discharge Date Admission Date: March 03, 2023 Subjective Patient seen and examined at bedside. She reports low appetite; no nausea or vomiting. Reports that abdominal pain has improved Review of Systems Review of Systems: All systems reviewed & are unremarkable except as noted in Subjective Physical Exam Physical Exam: Constitutional: WD/WN, vitals as above, NAD, sitting up in bed, pleasant, conversing easily Respiratory: normal respiratory effort, lungs clear to auscultation, no wheeze, rales, rhonchi. Normal insp/exp effort, no accessory muscle use Cardiovascular: RRR, no murmur, no edema Vessels: no JVD or carotid bruit Chest: normal inspection of chest Abdomen: Soft, nontender. Bowel sound present Musculoskeletal: no cyanosis or clubbing, extremities motor strength 5/5 Skin: no rashes, warm and dry normal turgor Neurologic: PERRL, EOMI, accommodation nl, no face palsy, no dysarthria CN's II- XI intact bilaterally and moves all extremities Psychiatric: A+Ox3, euthymic affect Results & Data Results & Data Vital Signs (Past 12 Hours) Vital Signs Temp Pulse Pulse Resp BP Pulse Ox O2 Del Method 03/05/23 08:25 36.8 C 75 18 112/60 94 Room Air 03/05/23 07:18 87 03/05/23 05:05 86 03/05/23 02:16 36.7 C 92 H 18 130/69 96 Room Air Laboratory Results Laboratory Results WBC 6.34 K/ul (4.8-10.8) 03/05/23 05:55 RBC 3.74 M/uL (4.20-5.40) L 03/05/23 05:55 Hgb 10.9 g/dl (12.0-16.0) L 03/05/23 05:55 Hct 33.2 % (37.0-47.0) L 03/05/23 05:55 MCV 88.8 fL (80.0-100.0) 03/05/23 05:55 MCH 29.1 pg (25.0-34.0) 03/05/23 05:55 MCHC 32.8 g/dL (32.0-36.0) 03/05/23 05:55 RDW Std Deviation 44.6 fL (36.4-46.3) 03/05/23 05:55 RDW Coeff of Edgard 13.7 % (11.5-14.5) 03/05/23 05:55 Plt Count 313 K/uL (130-400) 03/05/23 05:55 MPV 9.2 fL (9.4-12.4) L 03/05/23 05:55 Immature Gran % (Auto) 0.3 % 03/05/23 05:55 Neut % (Auto) 68.4 % 03/05/23 05:55 Lymph % (Auto) 19.9 % 03/05/23 05:55 [place] % (Auto) 9.5 % 03/05/23 05:55 Eos % (Auto) 1.3 % 03/05/23 05:55 Baso % (Auto) 0.6 % 03/05/23 05:55 Neut # (Auto) 4.34 K/uL (1.40-6.50) 03/05/23 05:55 Lymph # (Auto) 1.26 K/uL (1.20-3.40) 03/05/23 05:55 [place] # (Auto) 0.60 K/uL (0.11-0.59) H 03/05/23 05:55 Eos # (Auto) 0.08 K/uL (0.00-0.50) 03/05/23 05:55 Baso # (Auto) 0.04 K/uL (0.00-0.20) 03/05/23 05:55 Immature Gran # (Auto) 0.02 K/uL (0.01-0.20) 03/05/23 05:55 Sodium 140 mmol/L (136-145) 03/05/23 05:55 Potassium 3.6 mmol/L (3.5-5.1) 03/05/23 05:55 Chloride 108 mmol/L (98-107) H 03/05/23 05:55 Carbon Dioxide 23 mmol/L (21-32) 03/05/23 05:55 Anion Gap 9 (3-11) 03/05/23 05:55 BUN 11 mg/dl (6-23) 03/05/23 05:55 Creatinine 1.11 mg/dl (0.6-1.2) D 03/05/23 05:55 Est Cr Clr Drug Dosing 39.5 ml/min 03/05/23 05:55 Est GFR ( Amer) 55.9 ml/min 03/05/23 05:55 Est GFR (Non-Af Amer) 48.2 ml/min 03/05/23 05:55 BUN/Creatinine Ratio 9.9 (10-20) L 03/05/23 05:55 Glucose 83 mg/dl (70-99(Fasting)) 03/05/23 05:55 Lactate 1.2 mmol/L (0.4-2.0) 03/03/23 16:44 Calcium 7.5 mg/dl (8.6-10.3) L 03/05/23 05:55 Total Bilirubin 0.6 mg/dl (0.2-1.0) 03/03/23 16:44 AST 20 U/L (13-39) 03/03/23 16:44 ALT 10 U/L (7-52) 03/03/23 16:44 Alkaline Phosphatase 70 U/L (34-104) 03/03/23 16:44 Total Protein 7.1 gm/dl (6.0-8.3) 03/03/23 16:44 Albumin 3.8 gm/dl (3.4-5.0) 03/03/23 16:44 Globulin 3.3 gm/dl (2.5-4.0) 03/03/23 16:44 Albumin/Globulin Ratio 1.2 (0.9-2) 03/03/23 16:44 Lipase 14 U/L (11-82) 03/03/23 16:44 Urine Color Yellow 03/03/23 21:30 Urine Appearance Clear (Clear) 03/03/23 21:30 Urine pH 6.0 (4.5-7.5) 03/03/23 21:30 Ur Specific [place] 1.020 (1.000-1.030) 03/03/23 21:30 Urine Protein Negative (Negative) 03/03/23 21:30 Urine Glucose (UA) Negative (Negative) 03/03/23 21:30 Urine Ketones 3+ (Negative) H 03/03/23 21:30 Urine Blood 1+ (Negative) H 03/03/23 21:30 Urine Nitrite Negative (Negative) 03/03/23 21:30 Urine Bilirubin Negative (Negative) 03/03/23 21:30 Urine Urobilinogen Negative (Negative) 03/03/23 21:30 Ur Leukocyte Esterase 1+ (Negative) H 03/03/23 21:30 Urine WBC (Auto) 10-30 /hpf (0-5) H 03/03/23 21:30 Urine RBC (Auto) 5-10 /hpf (0-4) H 03/03/23 21:30 U Hyaline Cast (Auto) 1-5 /lpf (0-5) 03/03/23 21:30 U Epithel Cells (Auto) >30 /lpf (0-5) H 03/03/23 21:30 Urine Bacteria (Auto) Negative (Negative) 03/03/23 21:30 Nasal Screen MRSA (PCR) Negative (Negative) 03/03/23 Unknown Impressions Chest X-Ray 03/03/23 17:16 XR chest 1V portable CLINICAL HISTORY: Cough, LONG TECHNIQUE: Single frontal radiograph of the chest was obtained. Comparison: Comparison is made to chest radiograph 01/25/2019 FINDINGS: No lines and tubes are seen. Calcified aortic knob is seen. Right lower lung atelectasis is seen. No evidence of pleural effusion or pneumothorax. IMPRESSION: No acute abnormalities and in particular no radiographic evidence of pneumonia. ACT 112: Negative or not required by law. Electronically signed by: Ramiro Russell M.D. 03/03/2023 5:53 PM
[2023-03-05] MEDS: ONDANSETRON INJ 2 MG/ML 2 ML VIAL IV PRN ×2 (12:59→17:19)
[2023-03-05] MEDS ORDERED: PROMETHAZINE HCL 12.5 MG in SODIUM CHLORIDE 0.9% 50 ML IV ONE (20:15)
[2023-03-05] MEDS: ROSUVASTATIN CALCIUM 20 MG TAB PO SCH (22:43)
[2023-03-05] MEDS: MONTELUKAST SODIUM 10 MG TABLET PO SCH (22:43)
[2023-03-06] MEDS: CEFEPIME 2,000 MG in SYRINGE 0 ML IV SCH ×3 (01:01→21:01)
[2023-03-06] MEDS: metroNIDAZOLE 500 MG/100 ML BAG IV SCH ×4 (01:01→23:38)
[2023-03-06] MEDS: ACETAMINOPHEN 325 MG TAB PO PRN (01:09)
[2023-03-06 06:50] LABS: Basophils # (auto) 0.06 K/uL (0.00-0.20); Basophils % (auto) 0.9 %; Eosinophils # (auto) 0.13 K/uL (0.00-0.50); Hematocrit (blood only) 34.2 % (37.0-47.0); Hemoglobin 11.1 g/dl (12.0-16.0); Immature Granulocytes # (auto) 0.02 K/uL (0.01-0.20); Immature Granulocytes % (auto) 0.3 %; Lymphocytes # (auto) 1.36 K/uL (1.20-3.40); Lymphocytes % (auto) 20.6 %; Mean Corpuscular Hgb Conc 32.5 g/dL (32.0-36.0); Mean Corpuscular Volume 89.3 fL (80.0-100.0); Mean Platelet Volume 9.1 fL (9.4-12.4); Monocytes # (auto) 0.51 K/uL (0.11-0.59); Monocytes % (auto) 7.7 %; Neutrophils # (auto) 4.53 K/uL (1.40-6.50); Neutrophils % (auto) 68.5 %; Platelet Count 338 K/uL (130-400); RDW Coefficient of Variation 13.7 % (11.5-14.5); RDW Standard Deviation 44.9 fL (36.4-46.3); Red Blood Count 3.83 M/uL (4.20-5.40); White Blood Count 6.61 K/ul (4.8-10.8)
[2023-03-06 07:20] LABS: BUN Creatinine Ratio 11.1 (10-20); Calcium 7.4 mg/dl (8.6-10.3); Creatinine Clr Calc Pharmacy 37.7 ml/min; Est GFR (African American) 52.4 ml/min; Est GFR (Non-African American) 45.2 ml/min; Potassium 3.2 mmol/L (3.5-5.1)
[2023-03-06] MEDS: PANTOprazole 40 MG in SYRINGE 0 ML IV SCH ×2 (08:29→20:47)
[2023-03-06] MEDS: SODIUM CHLORIDE 0.9% 1,000 ML IV SCH ×2 (08:29→18:33)
[2023-03-06] MEDS: METOPROLOL SUCC 25MG EXT REL TAB PO SCH (08:29)
[2023-03-06] MEDS: FLUTICASONE/VILANTEROL 100/25MCG 14 PUFFS/INHALER INH SCH (08:29)
[2023-03-06] MEDS: POTASSIUM CHLORIDE / WTR 10 MEQ/100 ML PLCT IV SCH ×4 (08:30→11:40)
--- NOTE | 2023-03-06 09:29 | Surgery Progress Note ---
Date of Service March 06, 2023 Assessment & Plan (1) Colonic diverticular abscess: Plan: This seems to be improving. Plan is for repeat imaging early this coming week. We will not advance her diet since she is not tolerating clears very well. This may be secondary to what I suspect is some early oral thrush. She is at risk because of antibiotics as well as her oral inhaler. We will start nystatin swish and swallow. (2) Oral thrush: Admission and Anticipated Discharge Date Admission Date: March 03, 2023 Subjective Patient seen. Denies abdominal pain. Had some nausea with slight emesis last night. No nausea this morning. She does have a poor appetite and nothing tastes good Physical Exam Constitutional: WD/WN, vitals as above no acute distress and not ill appearing Eyes: PERRL, conjunctivae normal, anicteric sclerae EOM intact bilaterally ENMT: Small mild leukoplakia on the tongue. Question mild oral thrush Neck: trachea midline, no thyromegaly Respiratory: normal respiratory effort; no respiratory distress and does not use accessory muscles Cardiovascular: Rate/Rhythm: regular rate and regular rhythm Gastrointestinal (Abdomen): Soft. Minimal right lower quadrant suprapubic tenderness. No peritoneal signs. Skin: no rashes, warm and dry Psychiatric: Orientation: alert, oriented x 3 and cooperative Results & Data Vital Signs (Past 12 Hours) Vital Signs Temp Pulse Pulse Resp BP Pulse Ox O2 Del Method 03/06/23 07:14 36.8 C 85 17 120/65 94 Room Air 03/06/23 02:24 36.9 C 99 H 18 113/68 94 Room Air 03/06/23 01:25 93 H 03/05/23 23:31 36.6 C 90 16 126/75 95 Room Air PG Care Time/CCT Total # of Minutes Spent Total Time Spent with Patient: Total time spent is greater than 50% in coordination of care (as documented) at patient's floor/unit and/or counseling patient: Coding Level of Care Code 37677 SUB INP/OBS CARE 2/35MIN Diagnoses Colonic diverticular abscess K57.20 Oral thrush B37.0
--- NOTE | 2023-03-06 12:32 | Hospitalist Progress Note ---
Date of Service March 06, 2023 Assessment & Plan (1) Diverticulitis: (2) Abscess of sigmoid colon: Plan: Patient presented with abdominal pain for several days. Recently admitted from 02/10 to 02/14 with sigmoid diverticulitis; managed conservatively; finished course of antibiotic Presented to her PCP office on the day of the admission with abdominal pain. CT abdomen pelvis done outpatient showed abscess in distal sigmoid colon measuring 3.2 x 2.0 x 3.4 cm. Admitted for IV antibiotics. CT abd pelvis was done earlier today as outpatient, 03/03 and showed an abscess in the sigmoid colon along with diverticulitis. IMPRESSION: 1. Diverticulitis of the sigmoid colon with an abscess abutting the left aspect of the distal sigmoid colon measuring 3.2 x 2.0 x 3.4 cm. 2. Mild nonspecific gallbladder wall thickening. 3. Small hiatal hernia. 4. Narrowing at the origin of the celiac axis, likely due to a combination of median arcuate ligament compression and atherosclerotic changes. Continue IV cefepime and Flagyl. As per IR; abscess is too small for drainage. Discussed with surgery; might repeat repeat imaging if fails to improve conservatively. Advance diet to clear liquid diet. Continue supportive care with IV hydration, antiemetic. (3) Hypertension: Plan: - Chronic, stable - Cont metoprolol succinate 25 mg QAM (4) Hyperlipidemia: Plan: - Chronic, stable - Cont fish oil, rosuvastatin (5) Asthma: Plan: - Chest x-ray done in admission personally reviewed no acute finding. - COPD is documented in [facility] outpt chart - does not seem like this as she is not on inhalers, never smoked. - Chronic cough, minimal sputum production (6) Degenerative arthritis of knee, bilateral: Plan: - Chronic, stable (7) GERD (gastroesophageal reflux disease): Plan: - Chronic, stable cont omeprazole DVT ppx: Heparin Lines: GI/FEN: Clear liquid, CODE: FULL Dispo: Patient hospitalized for complicated diverticulitis with abscess for IV antibiotic. Might need IR drainage depending on further imaging. Time spent evaluating patient, direct bedside care, chart review, placing orders, interpretation of diagnostic studies, discussion with consultants, patient, and family members, as well as other required patient management activities is 60 minutes Please note the above document was generated using voice recognition software. It may contain grammatical, syntax or spelling errors. Any formal questions or concerns about the content, text or information contained within the body of this dictation should be directly addressed to the provider for clarification Admission and Anticipated Discharge Date Admission Date: March 03, 2023 Subjective Patient seen and examined at bedside. She reports she had multiple episodes of vomiting overnight. Reports no appetite to eat. No abdominal pain Review of Systems Review of Systems: All systems reviewed & are unremarkable except as noted in Subjective Physical Exam Physical Exam: Constitutional: WD/WN, vitals as above, NAD, sitting up in bed, pleasant, c onversing easily Respiratory: normal respiratory effort, lungs clear to auscultation, no wheeze, rales, rhonchi. Normal insp/exp effort, no accessory muscle use Cardiovascular: RRR, no murmur, no edema Vessels: no JVD or carotid bruit Chest: normal inspection of chest Abdomen: Soft, nontender. Bowel sound present Musculoskeletal: no cyanosis or clubbing, extremities motor strength 5/5 Skin: no rashes, warm and dry normal turgor Neurologic: PERRL, EOMI, accommodation nl, no face palsy, no dysarthria CN's II- XI intact bilaterally and moves all extremities Psychiatric: A+Ox3, euthymic affect Results & Data Results & Data Vital Signs (Past 12 Hours) Vital Signs Temp Pulse Pulse Resp BP BP Pulse Ox 03/06/23 11:22 36.9 C 75 16 184/69 H 95 03/06/23 07:14 36.8 C 85 17 120/65 94 03/06/23 02:24 36.9 C 99 H 18 113/68 94 03/06/23 01:25 93 H O2 Del Method 03/06/23 11:22 Room Air 03/06/23 07:14 Room Air 03/06/23 02:24 Room Air 03/06/23 01:25 Laboratory Results Laboratory Results WBC 6.61 K/ul (4.8-10.8) 03/06/23 06:25 RBC 3.83 M/uL (4.20-5.40) L 03/06/23 06:25 Hgb 11.1 g/dl (12.0-16.0) L 03/06/23 06:25 Hct 34.2 % (37.0-47.0) L 03/06/23 06:25 MCV 89.3 fL (80.0-100.0) 03/06/23 06:25 MCH 29.0 pg (25.0-34.0) 03/06/23 06:25 MCHC 32.5 g/dL (32.0-36.0) 03/06/23 06:25 RDW Std Deviation 44.9 fL (36.4-46.3) 03/06/23 06:25 RDW Coeff of Edgard 13.7 % (11.5-14.5) 03/06/23 06:25 Plt Count 338 K/uL (130-400) 03/06/23 06:25 MPV 9.1 fL (9.4-12.4) L 03/06/23 06:25 Immature Gran % (Auto) 0.3 % 03/06/23 06:25 Neut % (Auto) 68.5 % 03/06/23 06:25 Lymph % (Auto) 20.6 % 03/06/23 06:25 [place] % (Auto) 7.7 % 03/06/23 06:25 Eos % (Auto) 2.0 % 03/06/23 06:25 Baso % (Auto) 0.9 % 03/06/23 06:25 Neut # (Auto) 4.53 K/uL (1.40-6.50) 03/06/23 06:25 Lymph # (Auto) 1.36 K/uL (1.20-3.40) 03/06/23 06:25 [place] # (Auto) 0.51 K/uL (0.11-0.59) 03/06/23 06:25 Eos # (Auto) 0.13 K/uL (0.00-0.50) 03/06/23 06:25 Baso # (Auto) 0.06 K/uL (0.00-0.20) 03/06/23 06:25 Immature Gran # (Auto) 0.02 K/uL (0.01-0.20) 03/06/23 06:25 Sodium 139 mmol/L (136-145) 03/06/23 06:25 Potassium 3.2 mmol/L (3.5-5.1) L 03/06/23 06:25 Chloride 107 mmol/L (98-107) 03/06/23 06:25 Carbon Dioxide 22 mmol/L (21-32) 03/06/23 06:25 Anion Gap 10 (3-11) 03/06/23 06:25 BUN 13 mg/dl (6-23) 03/06/23 06:25 Creatinine 1.17 mg/dl (0.6-1.2) 03/06/23 06:25 Est Cr Clr Drug Dosing 37.7 ml/min 03/06/23 06:25 Est GFR ( Amer) 52.4 ml/min 03/06/23 06:25 Est GFR (Non-Af Amer) 45.2 ml/min 03/06/23 06:25 BUN/Creatinine Ratio 11.1 (10-20) 03/06/23 06:25 Glucose 75 mg/dl (70-99(Fasting)) 03/06/23 06:25 Lactate 1.2 mmol/L (0.4-2.0) 03/03/23 16:44 Calcium 7.4 mg/dl (8.6-10.3) L 03/06/23 06:25 Total Bilirubin 0.6 mg/dl (0.2-1.0) 03/03/23 16:44 AST 20 U/L (13-39) 03/03/23 16:44 ALT 10 U/L (7-52) 03/03/23 16:44 Alkaline Phosphatase 70 U/L (34-104) 03/03/23 16:44 Total Protein 7.1 gm/dl (6.0-8.3) 03/03/23 16:44 Albumin 3.8 gm/dl (3.4-5.0) 03/03/23 16:44 Globulin 3.3 gm/dl (2.5-4.0) 03/03/23 16:44 Albumin/Globulin Ratio 1.2 (0.9-2) 03/03/23 16:44 Lipase 14 U/L (11-82) 03/03/23 16:44 Urine Color Yellow 03/03/23 21:30 Urine Appearance Clear (Clear) 03/03/23 21:30 Urine pH 6.0 (4.5-7.5) 03/03/23 21:30 Ur Specific [place] 1.020 (1.000-1.030) 03/03/23 21:30 Urine Protein Negative (Negative) 03/03/23 21:30 Urine Glucose (UA) Negative (Negative) 03/03/23 21:30 Urine Ketones 3+ (Negative) H 03/03/23 21:30 Urine Blood 1+ (Negative) H 03/03/23 21:30 Urine Nitrite Negative (Negative) 03/03/23 21:30 Urine Bilirubin Negative (Negative) 03/03/23 21:30 Urine Urobilinogen Negative (Negative) 03/03/23 21:30 Ur Leukocyte Esterase 1+ (Negative) H 03/03/23 21:30 Urine WBC (Auto) 10-30 /hpf (0-5) H 03/03/23 21:30 Urine RBC (Auto) 5-10 /hpf (0-4) H 03/03/23 21:30 U Hyaline Cast (Auto) 1-5 /lpf (0-5) 03/03/23 21:30 U Epithel Cells (Auto) >30 /lpf (0-5) H 03/03/23 21:30 Urine Bacteria (Auto) Negative (Negative) 03/03/23 21:30 Nasal Screen MRSA (PCR) Negative (Negative) 03/03/23 Unknown Impressions Chest X-Ray 03/03/23 17:16 XR chest 1V portable CLINICAL HISTORY: Cough, LONG TECHNIQUE: Single frontal radiograph of the chest was obtained. Comparison: Comparison is made to chest radiograph 01/25/2019 FINDINGS: No lines and tubes are seen. Calcified aortic knob is seen. Right lower lung atelectasis is seen. No evidence of pleural effusion or pneumothorax. IMPRESSION: No acute abnormalities and in particular no radiographic evidence of pneumonia. ACT 112: Negative or not required by law. Electronically signed by: Ramiro Russell M.D. 03/03/2023 5:53 PM
[2023-03-06] MEDS: ONDANSETRON INJ 2 MG/ML 2 ML VIAL IV PRN ×2 (12:41→20:58)
[2023-03-06] MEDS: NYSTATIN SUSP 500,000 U/5 ML UDC PO SCH ×2 (13:11→20:47)
[2023-03-06] MEDS: PROMETHAZINE HCL 6.25 MG in SODIUM CHLORIDE 0.9% 50 ML IV PRN ×2 (16:26→23:20)
[2023-03-06] MEDS: MONTELUKAST SODIUM 10 MG TABLET PO SCH (20:47)
[2023-03-06] MEDS: ROSUVASTATIN CALCIUM 20 MG TAB PO SCH (20:47)
[2023-03-07] MEDS: ONDANSETRON INJ 2 MG/ML 2 ML VIAL IV PRN ×3 (06:18→15:43)
[2023-03-07 07:22] LABS: Basophils # (auto) 0.06 K/uL (0.00-0.20); Eosinophils # (auto) 0.31 K/uL (0.00-0.50); Eosinophils % (auto) 5.2 %; Hematocrit (blood only) 34.8 % (37.0-47.0); Hemoglobin 11.2 g/dl (12.0-16.0); Immature Granulocytes # (auto) 0.02 K/uL (0.01-0.20); Immature Granulocytes % (auto) 0.3 %; Lymphocytes # (auto) 1.19 K/uL (1.20-3.40); Mean Corpuscular Hemoglobin 28.8 pg (25.0-34.0); Mean Corpuscular Hgb Conc 32.2 g/dL (32.0-36.0); Mean Corpuscular Volume 89.5 fL (80.0-100.0); Mean Platelet Volume 9.5 fL (9.4-12.4); Monocytes # (auto) 0.52 K/uL (0.11-0.59); Monocytes % (auto) 8.7 %; Neutrophils # (auto) 3.85 K/uL (1.40-6.50); Neutrophils % (auto) 64.8 %; Platelet Count 341 K/uL (130-400); RDW Coefficient of Variation 13.8 % (11.5-14.5); RDW Standard Deviation 44.7 fL (36.4-46.3); Red Blood Count 3.89 M/uL (4.20-5.40); White Blood Count 5.95 K/ul (4.8-10.8)
[2023-03-07 07:46] LABS: Albumin Globulin Ratio 1.1 (0.9-2); BUN Creatinine Ratio 10.4 (10-20); Bilirubin,Total 0.5 mg/dl (0.2-1.0); Calcium 7.5 mg/dl (8.6-10.3); Creatinine Clr Calc Pharmacy 41.7 ml/min; Est GFR (African American) 59.1 ml/min; Globulin 2.7 gm/dl (2.5-4.0); Potassium 3.3 mmol/L (3.5-5.1); Total Protein 5.7 gm/dl (6.0-8.3)
[2023-03-07] MEDS: POTASSIUM CHLORIDE / WTR 10 MEQ/100 ML PLCT IV SCH ×4 (08:19→12:57)
[2023-03-07] MEDS: metroNIDAZOLE 500 MG/100 ML BAG IV SCH ×3 (08:19→23:59)
[2023-03-07] MEDS: PANTOprazole 40 MG in SYRINGE 0 ML IV SCH ×2 (08:22→20:17)
[2023-03-07] MEDS: METOPROLOL SUCC 25MG EXT REL TAB PO SCH (08:23)
[2023-03-07] MEDS: FLUTICASONE/VILANTEROL 100/25MCG 14 PUFFS/INHALER INH SCH (08:23)
[2023-03-07] MEDS: NYSTATIN SUSP 500,000 U/5 ML UDC PO SCH ×3 (08:24→20:18)
[2023-03-07] MEDS ORDERED: OPTIRAY 320 100ml IV ONE (09:33)
--- NOTE | 2023-03-07 09:58 | Surgery Progress Note ---
Date of Service March 07, 2023 Assessment & Plan (1) Colonic diverticular abscess: Plan: Continues to be without leukocytosis. Nystatin was prescribed over the weekend which seems to have helped. Abdominal pain is much improved although the patient continues with nausea and has diarrhea which are making her feel miserable. F/U CT A/P this am. (2) Oral thrush: Admission and Anticipated Discharge Date Admission Date: March 03, 2023 Subjective Patient seen this am. She says she was able to tolerate more of her full liquid tray this am and was able to taste. She also denies any significant abdominal pain but continues with nausea and this am c/o diarrhea. She is scheduled for a CT of the abdomen and pelvis this am and on her way to radiology at the time of my evaluation. Physical Exam Constitutional: average body habitus; not ill appearing, not in distress and not diaphoretic Respiratory: normal respiratory effort; no respiratory distress, no labored breathing and does not use accessory muscles Cardiovascular: Rate/Rhythm: regular rate; not tachycardic Results & Data Vital Signs (Past 12 Hours) Vital Signs Temp Pulse Pulse Resp BP BP Pulse Ox 03/07/23 06:00 88 03/07/23 07:15 36.8 C 87 18 126/71 94 03/07/23 02:41 36.6 C 78 18 120/71 97 03/07/23 00:55 101 H 03/06/23 23:51 37.1 C 96 H 18 121/75 92 O2 Del Method 03/07/23 06:00 03/07/23 07:15 Room Air 03/07/23 02:41 Room Air 03/07/23 00:55 03/06/23 23:51 Room Air PG Care Time/CCT Total # of Minutes Spent Total Time Spent with Patient: Total time spent is greater than 50% in coordination of care (as documented) at patient's floor/unit and/or counseling patient: Coding [place] [address] SUB INP/OBS CARE 1/25MIN Patient Type Established Medical Decision Making Straight Forward Diagnoses Colonic diverticular abscess K57.20 Oral thrush B37.0
[2023-03-07] MEDS: CEFEPIME 2,000 MG in SYRINGE 0 ML IV SCH ×2 (10:09→21:45)
--- NOTE | 2023-03-07 10:09 | CT Scan Report ---
CT SCAN OF THE ABDOMEN AND PELVIS WITH IV CONTRAST CLINICAL HISTORY: Follow-up diverticulitis. COMPARISON STUDY: Abdominal CT dated 02/10/2023. TECHNIQUE: Following the IV administration of 94 cc of Optiray 320, CT scan of the abdomen and pelvi s is performed from the lung bases to the proximal femora. Images are reviewed in the axial, sagittal , and coronal planes. IV contrast was administered without complication. Note that the examination is suboptimal without enteric contrast. A dose lowering technique was utilized adhering to the principl es of ALARA. CT DOSE: 1028.35 mGy.cm FINDINGS: Lung bases: The heart is top normal in size and without pericardial effusion. There are coronary ney ry calcifications. There are trace pleural effusions with dependent atelectasis. A small hiatal herni a is noted. Liver: The contrast-enhanced liver is normal in size, contour, and attenuation. There is no intrahepa tic biliary ductal dilatation. The hepatic veins and portal veins are patent. Gallbladder: There is an 8 mm calcified gallstone within the cystic duct seen on axial image #104. Th e gallbladder is distended, with wall thickening and edema as well as mild surrounding inflammation. Findings are consistent with acute cholecystitis. Spleen: Normal in size and attenuation. Pancreas: Unremarkable. Adrenal glands: Unremarkable. Kidneys: The contrast enhanced kidneys are normal in size and without hydronephrosis. The kidneys enh ance symmetrically. Simple and complex renal cysts measure up to 3.7 cm. Abdominal vasculature: The abdominal aorta is normal in course and caliber noting moderate atheroscle rotic calcification. Bowel: There is moderate colonic diverticulosis. There is persistent wall thickening of the sigmoid c olon at the site appears a characterize diverticulitis. Surrounding inflammation has improved. A mult iloculated intramural abscess along the left wall of the rectosigmoid measures approximately 4 x 4 by 1.5 cm as seen on axial image #236. No bowel obstruction is seen. The appendix is well-visualized a nd normal. Peritoneum: There is no intraperitoneal free air or abdominal ascites. Lymphadenopathy: None. Pelvic viscera: There is a punctate focus of gas within the bladder lumen. The bladder is otherwise n ormal as imaged. The uterus is heterogeneous. No adnexal lesion is seen. Skeletal structures: The skeletal structures are osteopenic. A mild compression deformity of L4 is un changed. Mild to moderate lumbosacral spondylosis is observed. No lytic or blastic lesions are seen. There is chronic deformity and postsurgical change seen in the right proximal femur. There is also ch ronic deformity right posterior acetabular roof. IMPRESSION: 1. Cholelithiasis with acute cholecystitis as above. Surgical assessment is advised. 2. Sigmoid diverticulitis has improved as compared to 02/10/2023. 3. A multiloculated intramural abscess of the sigmoid colon measures approximately 4 x 4 x 1.5 cm. Se e above. 4. No intraperitoneal free air is seen. 5. Trace pleural effusions. 6. Additional findings as above. ACT 112: Negative or not required by law. Electronically signed by: Juan Miguel Rodriguez M.D. 03/07/2023 10:07 AM
--- NOTE | 2023-03-07 12:30 | Hospitalist Progress Note ---
Date of Service March 07, 2023 Assessment & Plan (1) Diverticulitis: (2) Abscess of sigmoid colon: Plan: Patient presented with abdominal pain for several days. Recently admitted from 02/10 to 02/14 with sigmoid diverticulitis; managed conservatively; finished course of antibiotic Presented to her PCP office on the day of the admission with abdominal pain. CT abdomen pelvis done outpatient showed abscess in distal sigmoid colon measuring 3.2 x 2.0 x 3.4 cm. Admitted for IV antibiotics. CT abd pelvis was done earlier today as outpatient, 03/03 and showed an abscess in the sigmoid colon along with diverticulitis. IMPRESSION: 1. Diverticulitis of the sigmoid colon with an abscess abutting the left aspect of the distal sigmoid colon measuring 3.2 x 2.0 x 3.4 cm. 2. Mild nonspecific gallbladder wall thickening. 3. Small hiatal hernia. 4. Narrowing at the origin of the celiac axis, likely due to a combination of median arcuate ligament compression and atherosclerotic changes. Repeat CT abdomen and pelvis done today; personally reviewed. Cholelithiasis with acute cholecystitis present, sigmoid diverticulitis slightly improved. Multiloculated intramural abscess of 4 cm. Discussed with surgery regarding the finding on the repeat CT abdomen/pelvis. Recommended to obtain right upper quadrant ultrasound. Continue IV cefepime and Flagyl. Advance diet to clear liquid diet. We will make her n.p.o. overnight for possible intervention tomorrow AM. Continue supportive care with IV hydration, antiemetic. (3) Hypertension: Plan: - Chronic, stable - Cont metoprolol succinate 25 mg QAM (4) Hyperlipidemia: Plan: - Chronic, stable - Cont fish oil, rosuvastatin (5) Asthma: Plan: - Chest x-ray done in admission personally reviewed no acute finding. - COPD is documented in [facility] outpt chart - does not seem like this as she is not on inhalers, never smoked. - Chronic cough, minimal sputum production (6) Degenerative arthritis of knee, bilateral: Plan: - Chronic, stable (7) GERD (gastroesophageal reflux disease): Plan: - Chronic, stable cont omeprazole DVT ppx: Heparin Lines: GI/FEN: Clear liquid, CODE: FULL Dispo: Patient hospitalized for complicated diverticulitis with abscess for IV antibiotic. Might need IR drainage depending on further imaging. Also, concern for acute cholecystitis. Time spent evaluating patient, direct bedside care, chart review, placing orders, interpretation of diagnostic studies, discussion with consultants, patient, and family members, as well as other required patient management activities is 60 minutes Please note the above document was generated using voice recognition software. It may contain grammatical, syntax or spelling errors. Any formal questions or concerns about the content, text or information contained within the body of this dictation should be directly addressed to the provider for clarification Admission and Anticipated Discharge Date Admission Date: March 03, 2023 Subjective Seen and examined at bedside. She continues to report low appetite and occasional nausea and vomiting. She also reports of diarrhea. Review of Systems Review of Systems: All systems reviewed & are unremarkable except as noted in Subjective Physical Exam Physical Exam: Constitutional: WD/WN, vitals as above, NAD, sitting up in bed, pleasant, conversing easily Respiratory: normal respiratory effort, lungs clear to auscultation, no wheeze, rales, rhonchi. Normal insp/exp effort, no accessory muscle use Cardiovascular: RRR, no murmur, no edema Vessels: no JVD or carotid bruit Chest: normal inspection of chest Abdomen: Soft, mild tenderness in right lower quadrant. Bowel sound present Musculoskeletal: no cyanosis or clubbing, extremities motor strength 5/5 Skin: no rashes, warm and dry normal turgor Neurologic: PERRL, EOMI, accommodation nl, no face palsy, no dysarthria CN's II- XI intact bilaterally and moves all extremities Psychiatric: A+Ox3, euthymic affect Results & Data Results & Data Vital Signs (Past 12 Hours) Vital Signs Temp Pulse Pulse Resp BP BP Pulse Ox 03/07/23 06:00 88 03/07/23 07:15 36.8 C 87 18 126/71 94 03/07/23 02:41 36.6 C 78 18 120/71 97 03/07/23 00:55 101 H O2 Del Method 03/07/23 06:00 03/07/23 07:15 Room Air 03/07/23 02:41 Room Air 03/07/23 00:55 Laboratory Results Laboratory Results WBC 5.95 K/ul (4.8-10.8) 03/07/23 06:32 RBC 3.89 M/uL (4.20-5.40) L 03/07/23 06:32 Hgb 11.2 g/dl (12.0-16.0) L 03/07/23 06:32 Hct 34.8 % (37.0-47.0) L 03/07/23 06:32 MCV 89.5 fL (80.0-100.0) 03/07/23 06:32 MCH 28.8 pg (25.0-34.0) 03/07/23 06:32 MCHC 32.2 g/dL (32.0-36.0) 03/07/23 06:32 RDW Std Deviation 44.7 fL (36.4-46.3) 03/07/23 06:32 RDW Coeff of Edgard 13.8 % (11.5-14.5) 03/07/23 06:32 Plt Count 341 K/uL (130-400) 03/07/23 06:32 MPV 9.5 fL (9.4-12.4) 03/07/23 06:32 Immature Gran % (Auto) 0.3 % 03/07/23 06:32 Neut % (Auto) 64.8 % 03/07/23 06:32 Lymph % (Auto) 20.0 % 03/07/23 06:32 [place] % (Auto) 8.7 % 03/07/23 06:32 Eos % (Auto) 5.2 % 03/07/23 06:32 Baso % (Auto) 1.0 % 03/07/23 06:32 Neut # (Auto) 3.85 K/uL (1.40-6.50) 03/07/23 06:32 Lymph # (Auto) 1.19 K/uL (1.20-3.40) L 03/07/23 06:32 [place] # (Auto) 0.52 K/uL (0.11-0.59) 03/07/23 06:32 Eos # (Auto) 0.31 K/uL (0.00-0.50) 03/07/23 06:32 Baso # (Auto) 0.06 K/uL (0.00-0.20) 03/07/23 06:32 Immature Gran # (Auto) 0.02 K/uL (0.01-0.20) 03/07/23 06:32 Sodium 139 mmol/L (136-145) 03/07/23 06:32 Potassium 3.3 mmol/L (3.5-5.1) L 03/07/23 06:32 Chloride 108 mmol/L (98-107) H 03/07/23 06:32 Carbon Dioxide 21 mmol/L (21-32) 03/07/23 06:32 Anion Gap 10 (3-11) 03/07/23 06:32 BUN 11 mg/dl (6-23) 03/07/23 06:32 Creatinine 1.06 mg/dl (0.6-1.2) 03/07/23 06:32 Est Cr Clr Drug Dosing 41.7 ml/min 03/07/23 06:32 Est GFR ( Amer) 59.1 ml/min 03/07/23 06:32 Est GFR (Non-Af Amer) 51.0 ml/min 03/07/23 06:32 BUN/Creatinine Ratio 10.4 (10-20) 03/07/23 06:32 Glucose 73 mg/dl (70-99(Fasting)) 03/07/23 06:32 Lactate 1.2 mmol/L (0.4-2.0) 03/03/23 16:44 Calcium 7.5 mg/dl (8.6-10.3) L 03/07/23 06:32 Total Bilirubin 0.5 mg/dl (0.2-1.0) 03/07/23 06:32 AST 17 U/L (13-39) 03/07/23 06:32 ALT 8 U/L (7-52) 03/07/23 06:32 Alkaline Phosphatase 52 U/L (34-104) 03/07/23 06:32 Total Protein 5.7 gm/dl (6.0-8.3) L 03/07/23 06:32 Albumin 3.0 gm/dl (3.4-5.0) L 03/07/23 06:32 Globulin 2.7 gm/dl (2.5-4.0) 03/07/23 06:32 Albumin/Globulin Ratio 1.1 (0.9-2) 03/07/23 06:32 Lipase 14 U/L (11-82) 03/03/23 16:44 Urine Color Yellow 03/03/23 21:30 Urine Appearance Clear (Clear) 03/03/23 21:30 Urine pH 6.0 (4.5-7.5) 03/03/23 21:30 Ur Specific [place] 1.020 (1.000-1.030) 03/03/23 21:30 Urine Protein Negative (Negative) 03/03/23 21:30 Urine Glucose (UA) Negative (Negative) 03/03/23 21:30 Urine Ketones 3+ (Negative) H 03/03/23 21:30 Urine Blood 1+ (Negative) H 03/03/23 21:30 Urine Nitrite Negative (Negative) 03/03/23 21:30 Urine Bilirubin Negative (Negative) 03/03/23 21:30 Urine Urobilinogen Negative (Negative) 03/03/23 21:30 Ur Leukocyte Esterase 1+ (Negative) H 03/03/23 21:30 Urine WBC (Auto) 10-30 /hpf (0-5) H 03/03/23 21:30 Urine RBC (Auto) 5-10 /hpf (0-4) H 03/03/23 21:30 U Hyaline Cast (Auto) 1-5 /lpf (0-5) 03/03/23 21:30 U Epithel Cells (Auto) >30 /lpf (0-5) H 03/03/23 21:30 Urine Bacteria (Auto) Negative (Negative) 03/03/23 21:30 Nasal Screen MRSA (PCR) Negative (Negative) 03/03/23 Unknown Impressions Chest X-Ray 03/03/23 17:16 XR chest 1V portable CLINICAL HISTORY: Cough, LONG TECHNIQUE: Single frontal radiograph of the chest was obtained. Comparison: Comparison is made to chest radiograph 01/25/2019 FINDINGS: No lines and tubes are seen. Calcified aortic knob is seen. Right lower lung atelectasis is seen. No evidence of pleural effusion or pneumothorax. IMPRESSION: No acute abnormalities and in particular no radiographic evidence of pneumonia. ACT 112: Negative or not required by law. Electronically signed by: Ramiro Russell M.D. 03/03/2023 5:53 PM Abdomen/Pelvis CT 03/07/23 12:00 CT SCAN OF THE ABDOMEN AND PELVIS WITH IV CONTRAST CLINICAL HISTORY: Follow-up diverticulitis. COMPARISON STUDY: Abdominal CT dated 02/10/2023. TECHNIQUE: Following the IV administration of 94 cc of Optiray 320, CT scan of the abdomen and pelvis is performed from the lung bases to the proximal femora. Images are reviewed in the axial, sagittal, and coronal planes. IV contrast was administered without complication. Note that the examination is suboptimal without enteric contrast. A dose lowering technique was utilized adhering to the principles of ALARA. CT DOSE: 1028.35 mGy.cm FINDINGS: Lung bases: The heart is top normal in size and without pericardial effusion. There are coronary artery calcifications. There are trace pleural effusions with dependent atelectasis. A small hiatal hernia is noted. Liver: The contrast-enhanced liver is normal in size, contour, and attenuation. There is no intrahepatic biliary ductal dilatation. The hepatic veins and portal veins are patent. Gallbladder: There is an 8 mm calcified gallstone within the cystic duct seen on axial image #104. The gallbladder is distended, with wall thickening and edema as well as mild surrounding inflammation. Findings are consistent with acute cholecystitis. Spleen: Normal in size and attenuation. Pancreas: Unremarkable. Adrenal glands: Unremarkable. Kidneys: The contrast enhanced kidneys are normal in size and without hydronephrosis. The kidneys enhance symmetrically. Simple and complex renal cysts measure up to 3.7 cm. Abdominal vasculature: The abdominal aorta is normal in course and caliber noting moderate atherosclerotic calcification. Bowel: There is moderate colonic diverticulosis. There is persistent wall thickening of the sigmoid colon at the site appears a characterize dive rticulitis. Surrounding inflammation has improved. A multiloculated intramural abscess along the left wall of the rectosigmoid measures approximately 4 x 4 by 1.5 cm as seen on axial image #236. No bowel obstruction is seen. The appendix is well-visualized and normal. Peritoneum: There is no intraperitoneal free air or abdominal ascites. Lymphadenopathy: None. Pelvic viscera: There is a punctate focus of gas within the bladder lumen. The bladder is otherwise normal as imaged. The uterus is heterogeneous. No adnexal lesion is seen. Skeletal structures: The skeletal structures are osteopenic. A mild compression deformity of L4 is unchanged. Mild to moderate lumbosacral spondylosis is observed. No lytic or blastic lesions are seen. There is chronic deformity and postsurgical change seen in the right proximal femur. There is also chronic deformity right posterior acetabular roof. IMPRESSION: 1. Cholelithiasis with acute cholecystitis as above. Surgical assessment is advised. 2. Sigmoid diverticulitis has improved as compared to 02/10/2023. 3. A multiloculated intramural abscess of the sigmoid colon measures approximately 4 x 4 x 1.5 cm. See above. 4. No intraperitoneal free air is seen. 5. Trace pleural effusions. 6. Additional findings as above. ACT 112: Negative or not required by law. Electronically signed by: Juan Miguel Rodriguez M.D. 03/07/2023 10:07 AM
--- NOTE | 2023-03-07 18:56 | Ultrasound Report ---
US liver CLINICAL HISTORY: rule out acute cholecystitis TECHNIQUE: Multiple real-time sonographic images of the right upper quadrant were obtained. Comparison: Comparison is made to CT abdomen pelvis 02/25/2023 FINDINGS: The liver is diffusely homogenous with normal contour and echogenicity. No focal mass lesions are see n. No intrahepatic ductal dilatation is seen. Gallbladder is distended and the wall is thickened measuring 4.2 mm. Stones in the cystic duct are better seen on CT imaging. Gonzales's sign cannot be as sessed as the patient received pain medication. The common duct measures 0.9 cm in diameter at the le ara of the hepatic artery. The visualized portions of the pancreas appear normal. Echogenic appearance of the right kidney is seen, there are multiple cysts measuring up to 3.1 x 2.8 x 3.5 cm. Trace perinephric fluid is seen. No ascites or free fluid is seen in Sotelo's pouch. IMPRESSION: 1. Thickened gallbladder wall is seen compatible with acute cholecystitis. Gonzales's sign cannot be a ssessed. 2. Echogenic kidneys compatible with medical renal disease. ACT 112: Negative or not required by law. Electronically signed by: Ramiro Russell M.D. 03/07/2023 6:54 PM
[2023-03-07] MEDS: PROMETHAZINE HCL 6.25 MG in SODIUM CHLORIDE 0.9% 50 ML IV PRN (19:53)
[2023-03-07] MEDS: MONTELUKAST SODIUM 10 MG TABLET PO SCH (20:18)
[2023-03-07] MEDS: ROSUVASTATIN CALCIUM 20 MG TAB PO SCH (20:18)
[2023-03-08] MEDS: ONDANSETRON INJ 2 MG/ML 2 ML VIAL IV PRN ×2 (06:04→15:38)
--- NOTE | 2023-03-08 09:15 | Surgery Progress Note ---
Patient was seen and examined this am. She continues with nausea and dry heaves. We will plan for laparoscopic cholecystectomy today. At that time, the sigmoid colon area will be assessed and the area will be washed out if indicated. No definitive surgical treatment planned for the colon at this time, will continue with IV antibiotics as this area appears improved per radiologist on recent imaging. Date of Service March 08, 2023 Assessment & Plan (1) Colonic diverticular abscess: Plan: Pt resting in bed Denies fevers, chills, CP, SOB Reports nausea and vomiting last night, mild nausea this AM taking IV zofran, has indigestion has Protonix ordered BID Currently NPO with sips and chips , Changed to NPO sips with meds Reports RUQ a 2/[address] scan yesterday showed 2. Sigmoid diverticulitis has improved as compared to 02/10/2023. 3. A multiloculated intramural abscess of the sigmoid colon measures approximately 4 x 4 x 1.5 cm. See above. 4. No intraperitoneal free air is seen. Continue IV antibx Keep NPO Start IV Fluids for hydration (2) Acute cholecystitis: Plan: CT scan from yesterday showed Gallbladder: There is an 8 mm calcified gallstone within the cystic duct seen on axial image #104. The gallbladder is distended, with wall thickening and edema as well as mild surrounding inflammation. Findings are consistent with acute cholecystitis. Ultrasound from yesterday showed IMPRESSION: 1. Thickened gallbladder wall is seen compatible with acute cholecystitis. Gonzales's sign cannot be assessed. 2. Echogenic kidneys compatible with medical renal disease. LFT wnl Denies prior hx of RUQ pain or known GB issues Will likely need a Laparoscopic Cholecystectomy however timing of this is uncertain given Diverticular abscess Will discuss with Dr. Alegre and further recommendations will be forthcoming Admission and Anticipated Discharge Date Admission Date: March 03, 2023 Subjective Pt resting in bed Denies fevers, chills, CP, SOB Reports nausea and vomiting last night, mild nausea this AM Currently NPO with sips and chips Reports RUQ a 2/10 tenderness Review of Systems Constitutional: no fever, no chills and no sweats Respiratory: no dyspnea Cardiovascular: no chest pain Gastrointestinal: + abdominal pain (2/10), + nausea and + vomiting (last night ) Genitourinary: no problem reported Physical Exam Physical Exam: aler oriented Constitutional: cooperative and comfortable; no acute distress Respiratory: normal respiratory effort and able to speak in complete sentences; no respiratory distress Cardiovascular: Rate/Rhythm: regular rate Gastrointestinal (Abdomen): Inspection/Auscultation: abdomen not distended Percussion/Palpation: + abdomen tender and abdomen soft Results & Data Vital Signs (Past 12 Hours) Vital Signs Temp Pulse Pulse Resp BP Pulse Ox O2 Del Method 03/08/23 08:04 98.4 F 86 16 139/78 95 Room Air 03/08/23 07:18 117 H 03/08/23 03:04 98.1 F 87 18 136/73 94 Room Air 03/07/23 23:52 98.6 F 85 18 120/69 93 Room Air 03/07/23 22:01 82 Diagnostic Findings [place], [place] [phone] CT Scan Report Patient:LEIGH TOBIAS Admit Date:03/03/23 MR#:[id number] Address1:[address] [place] [address] Acct ID:[id number] Address2: Date:1945 [facility] Zip:[place] [address] Age:77 Location:2N Sex:F Room/Bed:[facility] Att Phy:Elijah Sanches MD Diagnosis:ABDOMINAL ABSCESS Gisel Phy:Manoj Weber DO Service Date:03/07/23 Fam Phy: Interpreting Phy:Juan Miguel Rodriguez MDAdmit Phy:Leti Christine MD Ordering Phy:Elijah Sanches MD cc: ~ CT SCAN OF THE ABDOMEN AND PELVIS WITH IV CONTRAST CLINICAL HISTORY: Follow-up diverticulitis. COMPARISON STUDY: Abdominal CT dated 02/10/2023. TECHNIQUE: Following the IV administration of 94 cc of Optiray 320, CT scan of the abdomen and pelvis is performed from the lung bases to the proximal femora. Images are reviewed in the axial, sagittal, and coronal planes. IV contrast was administered without complication. Note that the examination is suboptimal without enteric contrast. A dose lowering technique was utilized adhering to the principles of ALARA. CT DOSE: 1028.35 mGy.cm FINDINGS: Lung bases: The heart is top normal in size and without pericardial effusion. There are coronary artery calcifications. There are trace pleural effusions with dependent atelectasis. A small hiatal hernia is noted. Liver: The contrast-enhanced liver is normal in size, contour, and attenuation. There is no intrahepatic biliary ductal dilatation. The hepatic veins and portal veins are patent. Gallbladder: There is an 8 mm calcified gallstone within the cystic duct seen on axial image #104. The gallbladder is distended, with wall thickening and edema as well as mild surrounding inflammation. Findings are consistent with acute cholecystitis. Spleen: Normal in size and attenuation. Pancreas: Unremarkable. Adrenal glands: Unremarkable. Kidneys: The contrast enhanced kidneys are normal in size and without hydronephrosis. The kidneys enhance symmetrically. Simple and complex renal cysts measure up to 3.7 cm. Abdominal vasculature: The abdominal aorta is normal in course and caliber noting moderate atherosclerotic calcification. Bowel: There is moderate colonic diverticulosis. There is persistent wall thickening of the sigmoid colon at the site appears a characterize diverticulitis. Surrounding inflammation has improved. A multiloculated intramural abscess along the left wall of the rectosigmoid measures approxima tely 4 x 4 by 1.5 cm as seen on axial image #236. No bowel obstruction is seen. The appendix is well-visualized and normal. Peritoneum: There is no intraperitoneal free air or abdominal ascites. Lymphadenopathy: None. Pelvic viscera: There is a punctate focus of gas within the bladder lumen. The bladder is otherwise normal as imaged. The uterus is heterogeneous. No adnexal lesion is seen. Skeletal structures: The skeletal structures are osteopenic. A mild compression deformity of L4 is unchanged. Mild to moderate lumbosacral spondylosis is observed. No lytic or blastic lesions are seen. There is chronic deformity and postsurgical change seen in the right proximal femur. There is also chronic deformity right posterior acetabular roof. IMPRESSION: 1. Cholelithiasis with acute cholecystitis as above. Surgical assessment is advised. 2. Sigmoid diverticulitis has improved as compared to 02/10/2023. 3. A multiloculated intramural abscess of the sigmoid colon measures approximately 4 x 4 x 1.5 cm. See above. 4. No intraperitoneal free air is seen. 5. Trace pleural effusions. 6. Additional findings as above. ACT 112: Negative or not required by law. Electronically signed by: Juan Miguel Rodriguez M.D. 03/07/2023 10:07 AM Dictated:10/957 Transcribed: 03/07/23957 [place], [place] [phone] Ultrasound Report Patient:LEIGH TOBIAS Admit Date:03/03/23 MR#:[id number] Address1:[address] Acct ID:[id number] Address2: Date:1945 [facility] Zip:[place] [address] Age:77 Location:2N Sex:F Room/Bed:[facility] Att Phy:Elijah Sanches MD Diagnosis:ABDOMINAL ABSCESS Gisel Phy:Manoj Weber DO Service Date:03/07/23 Fam Phy: Interpreting Phy:Ramiro Russell MDAdmit Phy:Leti Christine MD Ordering Phy:Elijah Sanches MD cc: ~ US liver CLINICAL HISTORY: rule out acute cholecystitis TECHNIQUE: Multiple real-time sonographic images of the right upper quadrant were obtained. Comparison: Comparison is made to CT abdomen pelvis 02/25/2023 FINDINGS: The liver is diffusely homogenous with normal contour and echogenicity. No focal mass lesions are seen. No intrahepatic ductal dilatation is seen. Gallbladder is distended and the wall is thickened measuring 4.2 mm. Stones in the cystic duct are better seen on CT imaging. Gonzales's sign cannot be assessed as the patient received pain medication. The common duct measures 0.9 cm in diameter at the level of the hepatic artery. The visualized portions of the pancreas appear normal. Echogenic appearance of the right kidney is seen, there are multiple cysts measuring up to 3.1 x 2.8 x 3.5 cm. Trace perinephric fluid is seen. No ascites or free fluid is seen in Sotelo's pouch. IMPRESSION: 1. Thickened gallbladder wall is seen compatible with acute cholecystitis. Gonazles's sign cannot be assessed. 2. Echogenic kidneys compatible with medical renal disease. ACT 112: Negative or not required by law. Electronically signed by: Ramiro Russell M.D. 03/07/2023 6:54 PM Dictated:03/07/231839 Transcribed: 03/07/231839 PG Care Time/CCT Total # of Minutes Spent Total Time Spent with Patient: Total time spent is greater than 50% in coordination of care (as documented) at patient's floor/unit and/or counseling patient: Coding Level of Care Code 28827 SUB INP/OBS CARE MIN Diagnoses Colonic diverticular abscess K57.20 Acute cholecystitis K81.0
[2023-03-08] MEDS: METOPROLOL SUCC 25MG EXT REL TAB PO SCH (09:26)
[2023-03-08] MEDS: metroNIDAZOLE 500 MG/100 ML BAG IV SCH ×2 (09:27→16:40)
[2023-03-08] MEDS: NYSTATIN SUSP 500,000 U/5 ML UDC PO SCH ×3 (09:27→21:04)
[2023-03-08] MEDS: PANTOprazole 40 MG in SYRINGE 0 ML IV SCH ×2 (09:27→21:04)
[2023-03-08] MEDS: FLUTICASONE/VILANTEROL 100/25MCG 14 PUFFS/INHALER INH SCH ×2 (09:27→09:31)
[2023-03-08 10:08] LABS: Basophils # (auto) 0.05 K/uL (0.00-0.20); Basophils % (auto) 0.8 %; Eosinophils # (auto) 0.27 K/uL (0.00-0.50); Eosinophils % (auto) 4.1 %; Hematocrit (blood only) 35.5 % (37.0-47.0); Hemoglobin 11.7 g/dl (12.0-16.0); Immature Granulocytes # (auto) 0.02 K/uL (0.01-0.20); Immature Granulocytes % (auto) 0.3 %; Lymphocytes # (auto) 1.33 K/uL (1.20-3.40); Mean Corpuscular Hemoglobin 28.9 pg (25.0-34.0); Mean Corpuscular Volume 87.7 fL (80.0-100.0); Mean Platelet Volume 9.2 fL (9.4-12.4); Monocytes # (auto) 0.58 K/uL (0.11-0.59); Monocytes % (auto) 8.7 %; Neutrophils # (auto) 4.39 K/uL (1.40-6.50); Neutrophils % (auto) 66.1 %; Platelet Count 361 K/uL (130-400); RDW Coefficient of Variation 14.1 % (11.5-14.5); RDW Standard Deviation 45.7 fL (36.4-46.3); Red Blood Count 4.05 M/uL (4.20-5.40); White Blood Count 6.64 K/ul (4.8-10.8)
[2023-03-08] MEDS ORDERED: ROCURONIUM BROMIDE 10 MG/ML 5 ML VIAL IV ONE (10:15)
[2023-03-08] MEDS ORDERED: MIDAZOLAM HCL 1 MG/ML 2ML VIAL ONE (10:15)
[2023-03-08] MEDS ORDERED: ONDANSETRON INJ 2 MG/ML 2 ML VIAL ONE (10:15)
[2023-03-08] MEDS ORDERED: LIDOCAINE 2% 2 ML VIAL/AMP(20MG/ML) INFIL ONE (10:15)
[2023-03-08] MEDS ORDERED: PROPOFOL IV EMULSION 10 MG/ML 20 ML VIAL IV ONE (10:15)
[2023-03-08] MEDS ORDERED: fentaNYL citrate PF 100 MCG/2 ML VIAL ONE ×2 (10:15→11:47)
[2023-03-08 10:20] LABS: Albumin Globulin Ratio 1.1 (0.9-2); Albumin Level 3.2 gm/dl (3.4-5.0); BUN Creatinine Ratio 8.9 (10-20); Bilirubin,Total 0.5 mg/dl (0.2-1.0); Calcium 8.2 mg/dl (8.6-10.3); Creatinine Clr Calc Pharmacy 38.9 ml/min; Est GFR (African American) 55.3 ml/min; Est GFR (Non-African American) 47.7 ml/min; Globulin 2.8 gm/dl (2.5-4.0); Potassium 3.5 mmol/L (3.5-5.1)
--- NOTE | 2023-03-08 10:25 | Anesthesiology Consultation ---
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 Operation Date: 03/08/23 09:55 Proposed Procedures p Exploratory Laparoscopy, Possible Wash out - Lili Alegre DO s Laparoscopic Cholecystectomy - Lili Alegre DO Height/Weight Height: 5 ft 2 in Weight: 68.9 kg Allergies Allergy/AdvReac Type Severity Reaction Status Date / Time amoxicillin Allergy Severe Itching Unverified 02/10/23 20:35 aspirin Allergy Mild wheeze Verified 02/10/23 20:35 Medications Home Medications Medication Instructions Recorded Confirmed Last Taken calcium acetate(phosphat bind) 667 667 mg PO HS ##0 11/12/10 03/03/23 02/09/23 mg tablet multivitamin 1 tab PO DAILY ##0 11/12/10 03/03/23 02/10/23 omega 9-[id number]-fish oil 1,000 mg 1 cap PO DAILY ##0 11/12/10 03/03/23 02/10/23 (120 mg-180 mg) capsule (Fish Oil) omeprazole 20 mg capsule,delayed 20 mg PO BID ##0 11/12/10 03/03/23 02/10/23 release cholecalciferol (vitamin D3) 25 1,000 unit PO DAILY 01/25/19 03/03/23 02/10/23 mcg (1,000 unit) capsule (Vitamin D3) metoprolol succinate 25 mg 25 mg PO QAM 01/25/19 03/03/23 02/10/23 tablet,extended release 24 hr montelukast 10 mg tablet 10 mg PO HS 01/25/19 03/03/23 02/09/23 ascorbic acid (vitamin C) 250 mg 250 mg PO QAM 06/01/19 03/03/23 02/10/23 chewable tablet (Vitamin C) fluticasone propionate 50 1 spray intranasal DAILY 06/01/19 03/03/23 02/10/23 mcg/actuation nasal spray,suspension (Flonase Allergy Relief) glucosamine-chondroitin 250 mg-200 1 tab PO QAM 06/01/19 03/03/23 02/10/23 mg tablet (Osteo Bi-Flex) denosumab 60 mg/mL subcutaneous 60 mg subcut .[id number] 02/10/23 03/03/23 3 Months Ago syringe (Prolia) ~11/10/22 fluticasone fur. 200 mcg-umeclid 1 inh inhalation PM 02/10/23 03/03/23 02/09/23 62.5 mcg-vilant 25 mcg inhalat.powder (Trelegy Ellipta) rosuvastatin 20 mg tablet 20 mg PO HS 02/10/23 03/03/23 02/09/23 Lactobacillus acidophilus 1 1,000 mmu cells PO DAILY #7 caps 02/14/23 03/03/23 Unknown billion cell capsule cholestyramine-aspartame 4 gram 4 g PO BID@1000,2200 PRN diarrhea 02/14/23 03/03/23 Unknown oral powder for susp in a packet #10 ea (Prevalite) ondansetron 4 mg disintegrating 4 mg PO DAILY PRN nausea and 02/14/23 03/03/23 Unknown tablet vomiting #10 tabs Active Medications Generic Name Dose Route Start Last Admin Trade Name Freq PRN Reason Stop Dose Admin Acetaminophen 650 mg 03/03/23 16:42 03/06/23 01:09 Acetaminophen 325 Mg Tab PO 04/02/23 16:41 650 mg Q4H PRN Administration Moderate Pain (Scale 4, 5, 6) Fluticasone/Vilanterol 1 puffs 03/04/23 09:00 03/08/23 09:31 Fluticasone/Vilanterol 100/25mcg 14 Puffs/Inhaler INH 04/03/23 08:59 Not Given DAILY ALFREDA Pantoprazole Sodium 40 mg/ 10 mls @ 5 mls/min 03/03/23 21:00 03/08/23 09:27 Syringe IV 04/02/23 20:59 5 mls/min BID ALFREDA Administration Metronidazole 500 mg in 100 mls @ 100 mls/hr 03/04/23 08:15 03/08/23 09:27 Flagyl IV 03/14/23 08:14 100 mls/hr Q8H ALFREDA Administration Protocol Cefepime HCl 2,000 mg/ Syringe 20 mls @ 5 mls/min 03/06/23 22:00 03/07/23 21:45 IV 03/14/23 21:59 5 mls/min Q12H ALFREDA Administration Protocol Promethazine HCl 6.25 mg/ 50.25 mls @ 201 mls/hr 03/06/23 15:37 03/07/23 20:17 Sodium Chloride IV 04/05/23 15:36 Infused Q6H PRN Infusion Nausea And Vomiting Metoprolol Succinate 25 mg 03/04/23 09:00 03/08/23 09:26 Metoprolol Succ 25mg Ext Rel Tab PO 04/03/23 08:59 25 mg QAM ALFREDA Administration Montelukast Sodium 10 mg 03/04/23 21:00 03/07/23 20:18 Montelukast Sodium 10 Mg Tablet PO 04/03/23 20:59 10 mg HS ALFREDA Administration Nystatin 10 ml 03/06/23 14:00 03/08/23 09:27 Nystatin Susp 500,000 U/5 Ml Udc PO 03/16/23 13:59 10 ml TID ALFREDA Administration Ondansetron HCl 4 mg 03/03/23 16:42 03/08/23 06:04 Ondansetron Inj 2 Mg/Ml 2 Ml Vial IV 04/02/23 16:41 4 mg Q4H PRN Administration Nausea And Vomiting Rosuvastatin Calcium 20 mg 03/04/23 21:00 03/07/23 20:18 Rosuvastatin Calcium 20 Mg Tab PO 04/03/23 20:59 20 mg HS ALFREDA Administration Past Medical History Medical History Degenerative arthritis of knee, bilateral GERD (gastroesophageal reflux disease) Hyperlipidemia Hypertension Osteoarthritis Trochanteric bursitis, right hip Past Family History Family History Other Family history non-contributory Past Surgical History Surgical History History of open reduction and internal fixation (ORIF) procedure RIGHT HIP Hx of colonoscopy Hx of sinus surgery Social History Smoking Status: Former smoker Do You Dip or Chew Tobacco: No Smoking End Date: 30+ years ago Hx Alcohol Use: Yes Alcohol type: wine alcohol intake frequency: holidays/special occasions only Hx Substance Use: No substance use type: does not use Physical Exam Vital Signs Last Vital Signs Temp 98.4 F 03/08/23 08:04 Pulse 86 03/08/23 08:04 Resp 16 03/08/23 08:04 BP 139/78 03/08/23 08:04 Pulse Ox 95 03/08/23 08:04 O2 Del Method Room Air 03/08/23 08:04 Testing Laboratory Results 03/08/23 09:38 03/08/23 09:38 Urine Color Yellow 03/03/23 21:30 Urine Appearance Clear (Clear) 03/03/23 21:30 Urine pH 6.0 (4.5-7.5) 03/03/23 21:30 Ur Specific [place] 1.020 (1.000-1.030) 03/03/23 21:30 Urine Protein Negative (Negative) 03/03/23 21:30 Urine Glucose (UA) Negative (Negative) 03/03/23 21:30 Urine Ketones 3+ (Negative) H 03/03/23 21:30 Urine Nitrite Negative (Negative) 03/03/23 21:30 Ur Leukocyte Esterase 1+ (Negative) H 03/03/23 21:30 Urine WBC (Auto) 10-30 /hpf (0-5) H 03/03/23 21:30 Urine RBC (Auto) 5-10 /hpf (0-4) H 03/03/23 21:30 U Hyaline Cast (Auto) 1-5 /lpf (0-5) 03/03/23 21:30 U Epithel Cells (Auto) >30 /lpf (0-5) H 03/03/23 21:30 Urine Bacteria (Auto) Negative (Negative) 03/03/23 21:30 03/03/23 16:44 Aerobic Blood Culture - Preliminary Blood No growth in Aerobic bottle after 48 hours. Anaerobic Blood Culture - Preliminary No growth in Anaerobic bottle after 48 hours. 03/03/23 16:44 Aerobic Blood Culture - Preliminary Blood No growth in Aerobic bottle after 48 hours. Anaerobic Blood Culture - Preliminary No growth in Anaerobic bottle after 48 hours. 03/03/23 21:30 Urine Culture - Final Urine,Clean Catch Gram positive cocci Electrocardiogram Date: 03/03/23 Sinus tachycardia, rate 108 bpm Low voltage QRS ST & T wave abnormality, consider lateral ischemia Abnormal ECG When compared with ECG of 25-JAN-2019 10:40, Vent. rate has increased BY 49 BPM T wave inversion now evident in Lateral leads QT has lengthened T wave inversion less evident in Anterior leads Confirmed by Venkata Kruger ([id number]) on 03/04/2023 9:29:13 PM Chest X-Ray Date: 03/03/23 IMPRESSION: No acute abnormalities and in particular no radiographic evidence of pneumonia.
[2023-03-08] MEDS ORDERED: BUPIVACAINE/EPINEPHRINE 0.5% MPF 1:200,000 30 ML VIAL ONE (10:45)
[2023-03-08] MEDS ORDERED: ATROPINE SULFATE 0.1 MG/ML 10ML SYR IV PRN (10:52)
[2023-03-08] MEDS ORDERED: ONDANSETRON INJ 2 MG/ML 2 ML VIAL IV PRN (10:52)
[2023-03-08] MEDS ORDERED: ePHEDrine sulfate 50 MG/ML AMP IV PRN (10:52)
[2023-03-08] MEDS ORDERED: LACTATED RINGER'S 1,000 ML IV SCH (11:00)
[2023-03-08] MEDS: CEFEPIME 2,000 MG in SYRINGE 0 ML IV SCH ×2 (11:08→21:04)
--- NOTE | 2023-03-08 11:55 | Hospitalist Progress Note ---
Date of Service March 08, 2023 Assessment & Plan (1) Diverticulitis: (2) Acute cholecystitis: (3) Abscess of sigmoid colon: Plan: Patient presented with abdominal pain for several days. Recently admitted from 02/10 to 02/14 with sigmoid diverticulitis; managed co nservatively; finished course of antibiotic Presented to her PCP office on the day of the admission with abdominal pain. CT abdomen pelvis done outpatient showed abscess in distal sigmoid colon measuring 3.2 x 2.[address] abd pelvis was done earlier today as outpatient, 03/03 and showed an abscess in the sigmoid colon along with diverticulitis. IMPRESSION: 1. Diverticulitis of the sigmoid colon with an abscess abutting the left aspect of the distal sigmoid colon measuring 3.2 x 2.0 x 3.4 cm. 2. Mild nonspecific gallbladder wall thickening. 3. Small hiatal hernia. 4. Narrowing at the origin of the celiac axis, likely due to a combination of median arcuate ligament compression and atherosclerotic changes. Repeat CT abdomen and pelvis done on 03/07; personally reviewed. Cholelithiasis with acute cholecystitis present, sigmoid diverticulitis slightly improved. Multiloculated intramural abscess of 4 cm. Right upper quadrant ultrasound compatible with acute cholecystitis Discussed with surgery; plan for laparoscopic cholecystectomy today. Also, plan to assess sigmoid colon area and washout if indicated. No plans for IR intervention for abscess presently. Continue IV cefepime and Flagyl. N.p.o. for now. Diet as per surgery. Continue supportive care with antiemetic and IV fluids (4) Hypertension: Plan: - Chronic, stable - Cont metoprolol succinate 25 mg QAM (5) Hyperlipidemia: Plan: - Chronic, stable - Cont fish oil, rosuvastatin (6) Asthma: Plan: - Chest x-ray done in admission personally reviewed no acute finding. - COPD is documented in [facility] outpt chart - does not seem like this as she is not on inhalers, never smoked. - Chronic cough, minimal sputum production (7) Degenerative arthritis of knee, bilateral: Plan: - Chronic, stable (8) GERD (gastroesophageal reflux disease): Plan: - Chronic, stable cont omeprazole DVT ppx: Heparin Lines: GI/FEN: Clear liquid, CODE: FULL Dispo: Patient hospitalized for complicated diverticulitis with abscess and acute cholecystitis. Patient to undergo laparoscopic cholecystectomy today. Time spent evaluating patient, direct bedside care, chart review, placing orders, interpretation of diagnostic studies, discussion with consultants, patient, and family members, as well as other required patient management activities is 60 minutes Please note the above document was generated using voice recognition software. It may contain grammatical, syntax or spelling errors. Any formal questions or concerns about the content, text or information contained within the body of this dictation should be directly addressed to the provider for clarification Admission and Anticipated Discharge Date Admission Date: March 03, 2023 Subjective Patient seen and examined at bedside. She complains of nausea and vomiting of mucus intermittently. Reports right upper quadrant discomfort. Afebrile and hemodynamically stable. Review of Systems Review of Systems: All systems reviewed & are unremarkable except as noted in Subjective Physical Exam Physical Exam: Constitutional: WD/WN, vitals as above, NAD, sitting up in bed, pleasant, conversing easily Respiratory: normal respiratory effort, lungs clear to auscultation, no wheeze, rales, rhonchi. Normal insp/exp effort, no accessory muscle use Cardiovascular: RRR, no murmur, no edema Vessels: no JVD or carotid bruit Chest: normal inspection of chest Abdomen: Soft, mild tenderness in right upper quadrant. Bowel sound present Musculoskeletal: no cyanosis or clubbing, extremities motor strength 5/5 Skin: no rashes, warm and dry normal turgor Neurologic: PERRL, EOMI, accommodation nl, no face palsy, no dysarthria CN's II- XI intact bilaterally and moves all extremities Psychiatric: A+Ox3, euthymic affect Results & Data Results & Data Vital Signs (Past 12 Hours) Vital Signs Temp Pulse Pulse Resp BP BP Pulse Ox 03/08/23 10:44 36.9 C 89 20 149/83 H 95 03/08/23 08:04 36.9 C 86 16 139/78 95 03/08/23 07:18 117 H 03/08/23 03:04 36.7 C 87 18 136/73 94 03/07/23 23:52 37.0 C 85 18 120/69 93 O2 Del Method 03/08/23 10:44 Room Air 03/08/23 08:04 Room Air 03/08/23 07:18 03/08/23 03:04 Room Air 03/07/23 23:52 Room Air Laboratory Results Laboratory Results WBC 6.64 K/ul (4.8-10.8) 03/08/23 09:38 RBC 4.05 M/uL (4.20-5.40) L 03/08/23 09:38 Hgb 11.7 g/dl (12.0-16.0) L 03/08/23 09:38 Hct 35.5 % (37.0-47.0) L 03/08/23 09:38 MCV 87.7 fL (80.0-100.0) 03/08/23 09:38 MCH 28.9 pg (25.0-34.0) 03/08/23 09:38 MCHC 33.0 g/dL (32.0-36.0) 03/08/23 09:38 RDW Std Deviation 45.7 fL (36.4-46.3) 03/08/23 09:38 RDW Coeff of Edgard 14.1 % (11.5-14.5) 03/08/23 09:38 Plt Count 361 K/uL (130-400) 03/08/23 09:38 MPV 9.2 fL (9.4-12.4) L 03/08/23 09:38 Immature Gran % (Auto) 0.3 % 03/08/23 09:38 Neut % (Auto) 66.1 % 03/08/23 09:38 Lymph % (Auto) 20.0 % 03/08/23 09:38 Graves % (Auto) 8.7 % 03/08/23 09:38 Eos % (Auto) 4.1 % 03/08/23 09:38 Baso % (Auto) 0.8 % 03/08/23 09:38 Neut # (Auto) 4.39 K/uL (1.40-6.50) 03/08/23 09:38 Lymph # (Auto) 1.33 K/uL (1.20-3.40) 03/08/23 09:38 Graves # (Auto) 0.58 K/uL (0.11-0.59) 03/08/23 09:38 Eos # (Auto) 0.27 K/uL (0.00-0.50) 03/08/23 09:38 Baso # (Auto) 0.05 K/uL (0.00-0.20) 03/08/23 09:38 Immature Gran # (Auto) 0.02 K/uL (0.01-0.20) 03/08/23 09:38 Sodium 141 mmol/L (136-145) 03/08/23 09:38 Potassium 3.5 mmol/L (3.5-5.1) 03/08/23 09:38 Chloride 108 mmol/L (98-107) H 03/08/23 09:38 Carbon Dioxide 20 mmol/L (21-32) L 03/08/23 09:38 Anion Gap 13 (3-11) H 03/08/23 09:38 BUN 10 mg/dl (6-23) 03/08/23 09:38 Creatinine 1.12 mg/dl (0.6-1.2) 03/08/23 09:38 Est Cr Clr Drug Dosing 38.9 ml/min 03/08/23 09:38 Est GFR ( Amer) 55.3 ml/min 03/08/23 09:38 Est GFR (Non-Af Amer) 47.7 ml/min 03/08/23 09:38 BUN/Creatinine Ratio 8.9 (10-20) L 03/08/23 09:38 Glucose 76 mg/dl (70-99(Fasting)) 03/08/23 09:38 Lactate 1.2 mmol/L (0.4-2.0) 03/03/23 16:44 Calcium 8.2 mg/dl (8.6-10.3) L 03/08/23 09:38 Total Bilirubin 0.5 mg/dl (0.2-1.0) 03/08/23 09:38 AST 17 U/L (13-39) 03/08/23 09:38 ALT 8 U/L (7-52) 03/08/23 09:38 Alkaline Phosphatase 61 U/L (34-104) 03/08/23 09:38 Total Protein 6.0 gm/dl (6.0-8.3) 03/08/23 09:38 Albumin 3.2 gm/dl (3.4-5.0) L 03/08/23 09:38 Globulin 2.8 gm/dl (2.5-4.0) 03/08/23 09:38 Albumin/Globulin Ratio 1.1 (0.9-2) 03/08/23 09:38 Lipase 14 U/L (11-82) 03/03/23 16:44 Urine Color Yellow 03/03/23 21:30 Urine Appearance Clear (Clear) 03/03/23 21:30 Urine pH 6.0 (4.5-7.5) 03/03/23 21:30 Ur Specific [place] 1.020 (1.000-1.030) 03/03/23 21:30 Urine Protein Negative (Negative) 03/03/23 21:30 Urine Glucose (UA) Negative (Negative) 03/03/23 21:30 Urine Ketones 3+ (Negative) H 03/03/23 21:30 Urine Blood 1+ (Negative) H 03/03/23 21:30 Urine Nitrite Negative (Negative) 03/03/23 21: Urine Bilirubin Negative (Negative) 03/03/23 21:30 Urine Urobilinogen Negative (Negative) 03/03/23 21:30 Ur Leukocyte Esterase 1+ (Negative) H 03/03/23 21:30 Urine WBC (Auto) 10-30 /hpf (0-5) H 03/03/23 21:30 Urine RBC (Auto) 5-10 /hpf (0-4) H 03/03/23 21:30 U Hyaline Cast (Auto) 1-5 /lpf (0-5) 03/03/23 21:30 U Epithel Cells (Auto) >30 /lpf (0-5) H 03/03/23 21:30 Urine Bacteria (Auto) Negative (Negative) 03/03/23 21:30 Nasal Screen MRSA (PCR) Negative (Negative) 03/03/23 Unknown Impressions Chest X-Ray 03/03/23 17:16 XR chest 1V portable CLINICAL HISTORY: Cough, LONG TECHNIQUE: Single frontal radiograph of the chest was obtained. Comparison: Comparison is made to chest radiograph 01/25/2019 FINDINGS: No lines and tubes are seen. Calcified aortic knob is seen. Right lower lung atelectasis is seen. No evidence of pleural effusion or pneumothorax. IMPRESSION: No acute abnormalities and in particular no radiographic evidence of pneumonia. ACT 112: Negative or not required by law. Electronically signed by: Ramiro Russell M.D. 03/03/2023 5:53 PM Abdomen/Pelvis CT 03/07/23 12:00 CT SCAN OF THE ABDOMEN AND PELVIS WITH IV CONTRAST CLINICAL HISTORY: Follow-up diverticulitis. COMPARISON STUDY: Abdominal CT dated 02/10/2023. TECHNIQUE: Following the IV administration of 94 cc of Optiray 320, CT scan of the abdomen and pelvis is performed from the lung bases to the proximal femora. Images are reviewed in the axial, sagittal, and coronal planes. IV contrast was administered without complication. Note that the examination is suboptimal without enteric contrast. A dose lowering technique was utilized adhering to the principles of ALARA. CT DOSE: 1028.35 mGy.cm FINDINGS: Lung bases: The heart is top normal in size and without pericardial effusion. There are coronary artery calcifications. There are trace pleural effusions with dependent atelectasis. A small hiatal hernia is noted. Liver: The contrast-enhanced liver is normal in size, contour, and attenuation. There is no intrahepatic biliary ductal dilatation. The hepatic veins and portal veins are patent. Gallbladder: There is an 8 mm calcified gallstone within the cystic duct seen on axial image #104. The gallbladder is distended, with wall thickening and edema as well as mild surrounding inflammation. Findings are consistent with acute cholecystitis. Spleen: Normal in size and attenuation. Pancreas: Unremarkable. Adrenal glands: Unremarkable. Kidneys: The contrast enhanced kidneys are normal in size and without hydr onephrosis. The kidneys enhance symmetrically. Simple and complex renal cysts measure up to 3.7 cm. Abdominal vasculature: The abdominal aorta is normal in course and caliber noting moderate atherosclerotic calcification. Bowel: There is moderate colonic diverticulosis. There is persistent wall thickening of the sigmoid colon at the site appears a characterize diverticulitis. Surrounding inflammation has improved. A multiloculated intramural abscess along the left wall of the rectosigmoid measures approximately 4 x 4 by 1.5 cm as seen on axial image #236. No bowel obstruction is seen. The appendix is well-visualized and normal. Peritoneum: There is no intraperitoneal free air or abdominal ascites. Lymphadenopathy: None. Pelvic viscera: There is a punctate focus of gas within the bladder lumen. The bladder is otherwise normal as imaged. The uterus is heterogeneous. No adnexal lesion is seen. Skeletal structures: The skeletal structures are osteopenic. A mild compression deformity of L4 is unchanged. Mild to moderate lumbosacral spondylosis is observed. No lytic or blastic lesions are seen. There is chronic deformity and postsurgical change seen in the right proximal femur. There is also chronic deformity right posterior acetabular roof. IMPRESSION: 1. Cholelithiasis with acute cholecystitis as above. Surgical assessment is advised. 2. Sigmoid diverticulitis has improved as compared to 02/10/2023. 3. A multiloculated intramural abscess of the sigmoid colon measures approximately 4 x 4 x 1.5 cm. See above. 4. No intraperitoneal free air is seen. 5. Trace pleural effusions. 6. Additional findings as above. ACT 112: Negative or not required by law. Electronically signed by: Juan Miguel Rodriguez M.D. 03/07/2023 10:07 AM Liver Ultrasound 03/07/23 12:40 US liver CLINICAL HISTORY: rule out acute cholecystitis TECHNIQUE: Multiple real-time sonographic images of the right upper quadrant were obtained. Comparison: Comparison is made to CT abdomen pelvis 02/25/2023 FINDINGS: The liver is diffusely homogenous with normal contour and echogenicity. No focal mass lesions are seen. No intrahepatic ductal dilatation is seen. Gallbladder is distended and the wall is thickened measuring 4.2 mm. Stones in the cystic duct are better seen on CT imaging. Gonzales's sign cannot be assessed as the patient received pain medication. The common duct measures 0.9 cm in diameter at the level of the hepatic artery. The visualized portions of the pancreas appear normal. Echogenic appearance of the right kidney is seen, there are multiple cysts measuring up to 3.1 x 2.8 x 3.5 cm. Trace perinephric fluid is seen. No ascites or free fluid is seen in Sotelo's pouch. IMPRESSION: 1. Thickened gallbladder wall is seen compatible with acute cholecystitis. Gonzales's sign cannot be assessed. 2. Echogenic kidneys compatible with medical renal disease. ACT 112: Negative or not required by law. Electronically signed by: Ramiro Russell M.D. 03/07/2023 6:54 PM
[2023-03-08] MEDS ORDERED: ESMOLOL HCL INJ 10 MG/ML 10ML VIAL IV ONE (12:13)
[2023-03-08] MEDS ORDERED: METOPROLOL TARTRATE 1 MG/ML VIAL IV ONE (12:13)
[2023-03-08] MEDS ORDERED: SUGAMMADEX SODIUM 200 MG/2 ML VIAL IV ONE (13:38)
[2023-03-08] MEDS: fentaNYL citrate PF 100 MCG/2 ML VIAL IV PRN ×4 (14:02→14:20)
--- NOTE | 2023-03-08 14:41 | Anesthesiology Progress Note ---
Date of Service March 08, 2023 Anesthesia Post Procedure Vital Signs Vital Signs: Temp Pulse Pulse Pulse Resp BP BP 03/08/23 14:30 88 21 135/82 03/08/23 14:20 84 23 136/78 03/08/23 14:10 84 23 149/78 H 03/08/23 14:00 87 21 139/73 03/08/23 13:53 99.3 F 98 H 23 166/63 H 03/08/23 10:44 98.4 F 89 20 149/83 H 03/08/23 08:04 98.4 F 86 16 139/78 03/08/23 07:18 117 H 03/08/23 03:04 98.1 F 87 18 136/73 03/07/23 23:52 98.6 F 85 18 120/69 03/07/23 22:01 82 03/07/23 19:23 98.6 F 91 H 18 119/71 03/07/23 15:26 98.4 F 88 18 127/68 Pulse Ox O2 Del Method O2 Flow Rate 03/08/23 14:30 93 Oxymask 2 03/08/23 14:20 97 Oxymask 2 03/08/23 14:10 96 Oxymask 2 03/08/23 14:00 95 Oxymask 4 03/08/23 13:53 100 Oxymask 6 03/08/23 10:44 95 Room Air 03/08/23 08:04 95 Room Air 03/08/23 07:18 03/08/23 03:04 94 Room Air 03/07/23 23:52 93 Room Air 03/07/23 22:01 03/07/23 19:23 96 Room Air 03/07/23 15:26 94 Room Air Pain Intensity Abdomen: Pain Intensity: 7 Transfer of Care Handoff Completed per policy Notes Mental Status: alert / awake / arousable and participated in evaluation Patient Amnestic to Procedure: Yes Nausea / Vomiting: adequately controlled Pain: adequately controlled Airway Patency, RR, SpO2: stable & adequate BP & HR: stable & adequate Hydration State: stable & adequate Anesthetic Complications: no major complications apparent and Pt Satisfied with anesthetic care
[2023-03-08] MEDS ORDERED: MoRPHine SULFATE 2 MG/ML CARP IV PRN (15:06)
[2023-03-08] MEDS ORDERED: MoRPHine SULFATE 4 MG/ML 1 ML CARP\\VIAL IV PRN (15:06)
[2023-03-08] MEDS: LACTATED RINGER'S 1,000 ML IV SCH (15:09)
[2023-03-08] MEDS: ACETAMINOPHEN 325 MG TAB PO PRN ×2 (16:43→21:20)
--- NOTE | 2023-03-08 16:44 | Operative Report ---
PG Post Operative Report Pre & Post Diagnosis Operation Date: 03/08/23 09:55 Pre-Op Diagnosis: Abdominal abscess; Acute cholecystitis Post-Op Diagnosis: Abdominal abscess; Acute cholecystitis I identified the patient and participated in the time-out.: Yes Procedure Operation Date: 03/08/23 09:55 Actual Procedures p Laparoscopic Cholecystectomy - Lili Alegre DO Surgeon Lili Alegre DO Accounts Receivable Manager CHARLIE Solorio Estimated Blood Loss 10 Findings See Below Acute cholecystitis, CBD adhesed to the gallbladder with a large stone at the cystic duct orifice. Specimens Gallbladder Anesthesia Type General Complications None Indications Acute cholecystitis Description of Procedure The patient was brought back to the operating room and placed on the operating room table in supine position. She was connected to cardiac and oxygen monitoring. SCDs were applied to bilateral lower extremities. General anesthesia was administered and a secure airway was obtained. The abdomen was prepped and draped and a timeout was conducted. Local anesthetic was injected into the skin and subcutaneous tissues at the supraumbilical area. A small stab incision was made and the fascia was elevated using a towel clamp. A Veress needle was used to gain access to the intra- abdominal space. Pneumoperitoneum was established to a goal pressure of 15 mmHg using CO2. Once this goal pressure was reached, a 5 mm laparoscope was inserted using direct visualization within a 5 mm Visiport trocar. Attention was then turned to the epigastric area where local anesthetic was again injected into the skin and subcutaneous tissues. An incision was made large enough to hold an 11 mm trocar that was inserted under direct visualization. 2 additional 5 mm trocars were inserted along the right subcostal margin using direct visualization and with the same techniques. The gallbladder was immediately noticed extremely distended located at the right upper quadrant. The gallbladder was grasped at the fundus with difficulty secondary to severe distention and wall thickening. The gallbladder was decompressed using a harpoon shaft and needle. Clear hydropic fluid was aspirated. The gallbladder was then retracted by the fundus superiorly. The patient was positioned and Trendelenburg and left side down. Dense adhesions were taken down bluntly bet ween the gallbladder and omentum. There was a small amount of bleeding during this process at the area of gallbladder infundibulum, there was a large stone felt. The gallbladder was very large and floppy. An additional large, floppy structure was identified that initially appeared to potentially be part of the gallbladder. Through gentle, tedious and careful blunt dissection it became apparent that this structure was actually separate from the gallbladder and just densely adhesed to it. The structure was identified as the common bile duct that was pulled up and adhesed to the gallbladder infundibulum and inferior wall. Continued gentle, careful blunt dissection finally excess bows the common bile duct in its entirety and isolated it from the gallbladder. Through this process 5 mm clips were used to ligate the cystic duct extending from the CBD, which was extremely short, as well as thick adhesive bands that were adhesed between the inferior wall of the gallbladder and common bile duct. Care was taken to favor on the side of the gallbladder to be sure that the common bile duct was not compromised. The cystic artery was identified and softer tissue just posterior to these adhesions. This was controlled with two 5 mm clips proximally 1 distally. The cystic artery was transected using a laparoscopic scissor. The gallbladder was cauterized away from the liver bed. Bleeding was controlled along the way. The gallbladder was removed in an Endo Catch bag and sent to pathology for further analysis. The right upper quadrant was copiously irrigated and suctioned. Hemostasis was checked multiple times and achieved using cautery. Once hemostasis was satisfactory the remainder of the abdomen was inspected and the operating room table was repositioned. At the left lower quadrant a noninflamed sigmoid colon was identified containing 2 large diverticular pockets that were firm/thickened. There was no extraluminal abscess, thickening of the colon wall noted and no purulent or feculent fluid. Excess fluid from irrigation was suctioned away. CO2 insufflation was discontinued. Instruments and trocars were all removed. The epigastric incision was closed at the level of the fascia with 0 Vicryl suture. The skin was closed with 4-0 Vicryl suture at all incisions. The incisions were then sealed with Dermabond. The patient tolerated the procedure well. She was awakened from anesthesia and the secure airway was removed. The patient was transferred to recovery in stable condition. I attest to the content of the Intraoperative Record and any orders documented therein. Any exceptions are noted below.
[2023-03-08] MEDS: MONTELUKAST SODIUM 10 MG TABLET PO SCH (21:05)
[2023-03-08] MEDS: ROSUVASTATIN CALCIUM 20 MG TAB PO SCH (21:05)
[2023-03-09] MEDS: metroNIDAZOLE 500 MG/100 ML BAG IV SCH ×3 (00:39→16:13)
[2023-03-09] MEDS: LACTATED RINGER'S 1,000 ML IV SCH ×3 (00:39→21:06)
[2023-03-09] MEDS: ACETAMINOPHEN 325 MG TAB PO PRN (02:43)
[2023-03-09] MEDS ORDERED: ZOLPIDEM TARTRATE 5 MG TAB PO STA (02:50)
[2023-03-09 07:38] LABS: Basophils # (auto) 0.06 K/uL (0.00-0.20); Eosinophils # (auto) 0.21 K/uL (0.00-0.50); Eosinophils % (auto) 3.5 %; Hematocrit (blood only) 34.2 % (37.0-47.0); Immature Granulocytes # (auto) 0.03 K/uL (0.01-0.20); Immature Granulocytes % (auto) 0.5 %; Lymphocytes # (auto) 1.19 K/uL (1.20-3.40); Lymphocytes % (auto) 19.8 %; Mean Corpuscular Hemoglobin 28.8 pg (25.0-34.0); Mean Corpuscular Hgb Conc 32.2 g/dL (32.0-36.0); Mean Corpuscular Volume 89.5 fL (80.0-100.0); Mean Platelet Volume 9.4 fL (9.4-12.4); Monocytes # (auto) 0.44 K/uL (0.11-0.59); Monocytes % (auto) 7.3 %; Neutrophils # (auto) 4.09 K/uL (1.40-6.50); Neutrophils % (auto) 67.9 %; Platelet Count 317 K/uL (130-400); RDW Coefficient of Variation 14.3 % (11.5-14.5); RDW Standard Deviation 46.5 fL (36.4-46.3); Red Blood Count 3.82 M/uL (4.20-5.40); White Blood Count 6.02 K/ul (4.8-10.8)
[2023-03-09 07:54] LABS: Albumin Globulin Ratio 1.1 (0.9-2); Albumin Level 2.9 gm/dl (3.4-5.0); BUN Creatinine Ratio 10.3 (10-20); Bilirubin,Total 0.6 mg/dl (0.2-1.0); Calcium 7.5 mg/dl (8.6-10.3); Creatinine Clr Calc Pharmacy 41.3 ml/min; Est GFR (African American) 58.4 ml/min; Est GFR (Non-African American) 50.4 ml/min; Globulin 2.7 gm/dl (2.5-4.0); Potassium 3.2 mmol/L (3.5-5.1); Total Protein 5.6 gm/dl (6.0-8.3)
[2023-03-09] MEDS ORDERED: oxyCODONE HCL IR 5 MG TAB (IMMEDIATE RELEASE) PO STA (08:14)
[2023-03-09] MEDS ORDERED: POTASSIUM CHLORIDE CRTAB 20 MEQ TABCR PO STA (08:30)
[2023-03-09] MEDS: PANTOprazole 40 MG in SYRINGE 0 ML IV SCH (09:06)
[2023-03-09] MEDS: FLUTICASONE/VILANTEROL 100/25MCG 14 PUFFS/INHALER INH SCH (09:06)
[2023-03-09] MEDS: METOPROLOL SUCC 25MG EXT REL TAB PO SCH (09:06)
[2023-03-09] MEDS: NYSTATIN SUSP 500,000 U/5 ML UDC PO SCH ×3 (09:07→21:04)
--- NOTE | 2023-03-09 10:02 | Hospitalist Progress Note ---
Date of Service March 09, 2023 Assessment & Plan (1) Diverticulitis: (2) Acute cholecystitis: (3) Abscess of sigmoid colon: (4) Hypertension: (5) Hyperlipidemia: (6) Asthma: (7) Degenerative arthritis of knee, bilateral: (8) GERD (gastroesophageal reflux disease): Plan Pt is a 77yoF with a PMhx significant for Asthma, COPD, CAD, HTN, Hyperlipidemia, osteoarthritis and GERD admitted with diverticulitis with abscess and acute cholecystitis. Acute diverticulitis with abscess Acute cholecystitis Patient presented with abdominal pain for several days. Recently admitted from 02/10 to 02/14 with sigmoid diverticulitis; managed conservatively; finished course of antibiotics Presented to her PCP office on the day of this admission with abdominal pain. CT abdomen pelvis done outpatient showed diverticulitis with abscess in distal sigmoid colon measuring 3.2 x 2.0 x 3.[address] abdomen and pelvis done on 03/07: -Cholelithiasis with acute cholecystitis present, sigmoid diverticulitis slightly improved. Multiloculated intramural abscess of 4 cm. Right upper quadrant ultrasound compatible with acute cholecystitis WBC has not been elevated at any point. General Surgery consult, appreciate recs -s/p laparoscopic cholecystectomy on 03/08. -No plans for IR intervention for abscess presently. Continue IV cefepime and Flagyl, supportive care with antiemetics and IV fluids as needed Diet currently full liquid, being advanced by Surgery. Also on nystatin for suspected oral thrush per Gen Surg HTN Chronic, stable Cont metoprolol succinate 25 mg QAM HLD Chronic, stable Cont fish oil, rosuvastatin Hx of asthma Continue Singulair and inhalers OA Chronic, stable GERD Chronic, stable cont ppi DVT ppx: Lovenox ordered Diet: Full liquid at this time CODE: FULL Dispo: Pt to return home before surgery, might need re-assessment once more stable post-op. Admission and Anticipated Discharge Date Admission Date: March 03, 2023 Subjective Pt seen in the AM, in chair at bedside. States that she does not feel well. Notes that her abdomen is sore and she was up all night. Notes that she had just received pain meds. States she has a cough and an episode of emesis this AM of mucus-like material. Review of Systems Review of Systems: All systems reviewed & are unremarkable except as noted in Subjective Physical Exam Physical Exam: General: Alert, oriented. Psych: Appropriate mood and affect Neuro: No gross deficits HEENT: NC/AT Chest: Nontender to palpation. CV: RRR Resp: Breath sounds clear bilaterally, no increased effort of breathing. Abdomen:Soft, diffusely tender Extremities: No edema in lower extremities bilaterally. Results & Data Results & Data Vital Signs (Past 12 Hours) Vital Signs Temp Pulse Pulse Resp BP BP Pulse Ox 03/09/23 08:12 83 03/09/23 07:48 37.3 C 78 16 126/74 92 03/09/23 03:28 36.9 C 82 18 138/64 92 03/08/23 23:22 36.8 C 80 18 111/67 93 O2 Del Method 03/09/23 08:12 03/09/23 07:48 Room Air 03/09/23 03:28 Room Air 03/08/23 23:22 Room Air
[2023-03-09] MEDS: CEFEPIME 2,000 MG in SYRINGE 0 ML IV SCH ×2 (10:58→21:06)
[2023-03-09] MEDS ORDERED: PANTOprazole 40 MG TAB PO SCH (11:10)
[2023-03-09] MEDS: ONDANSETRON INJ 2 MG/ML 2 ML VIAL IV PRN (11:12)
[2023-03-09] MEDS: ALUMINUM/MAGNESIUM/SIMETH (MAALOX MAX) 30 ML UDC PO PRN (12:07)
[2023-03-09] MEDS ORDERED: oxyCODONE/ACETAMINOPHEN 5mg/325mg TAB PO PRN (13:39)
--- NOTE | 2023-03-09 13:46 | Surgery Progress Note ---
<Statement entered by Lili Alegre DO - 03/10/23 08:19> This patient has been seen and examined. I agree with the plan Date of Service March 09, 2023 Assessment & Plan (1) Acute cholecystitis: Plan: POD 1 lap jaydon Patient sitting up in chair Reports having a small emesis of mucus this AM but has since tolerated clear liquid breakfast and lunch Advanced diet to full liquid patient requesting cream of wheat, if tolerates full liquid may advance to low fat Denies passing flatus, N/V at present time, CP , SOB WBC and LFTs WNL Having abdominal pain RUQ , ordered PO Percocet Encouraged ambulation Will continue to monitor Admission and Anticipated Discharge Date Admission Date: March 03, 2023 Subjective Patient sitting up in chair Reports having a small emesis of mucus this AM but has since tolerated clear liquid breakfast and lunch Denies passing flatus, N/V at present time Having abdominal pain RUQ Review of Systems Constitutional: no fever and no chills Respiratory: no dyspnea Cardiovascular: no chest pain Gastrointestinal: + abdominal pain and + belching; no nausea and no vomiting Physical Exam Physical Exam: alert oriented Constitutional: cooperative and comfortable; no acute distress Respiratory: normal respiratory effort and able to speak in complete sentences; no respiratory distress Cardiovascular: Rate/Rhythm: regular rate Gastrointestinal (Abdomen): Inspection/Auscultation: abdomen normal to inspection and + abdominal surgical incision (post operative port sites covered with dermabond CDI); abdomen not distended Percussion/Palpation: + abdomen tender and abdomen soft; no guarding Results & Data Vital Signs (Past 12 Hours) Vital Signs Temp Pulse Pulse Resp BP Pulse Ox O2 Del Method 03/09/23 12:13 98.8 F 97 H 16 122/78 91 Room Air 03/09/23 10:47 Room Air 03/09/23 08:12 83 03/09/23 07:48 99.1 F 78 16 126/74 92 Room Air 03/09/23 03:28 98.4 F 82 18 138/64 92 Room Air PG Care Time/CCT Total # of Minutes Spent Total Time Spent with Patient: Total time spent is greater than 50% in coordination of care (as documented) at patient's floor/unit and/or counseling patient: Coding Level of Care Code 88496 Post Operative Follow-Up Diagnoses Acute cholecystitis K81.0
[2023-03-09] MEDS: oxyCODONE/ACETAMINOPHEN 5mg/325mg TAB PO PRN ×2 (16:12→23:11)
[2023-03-09] MEDS: ENOXAPARIN INJ 40 MG/0.4 ML SYR SQ SCH (16:13)
[2023-03-09] MEDS: MONTELUKAST SODIUM 10 MG TABLET PO SCH (21:04)
[2023-03-09] MEDS: ROSUVASTATIN CALCIUM 20 MG TAB PO SCH (21:05)
[2023-03-09] MEDS: PANTOprazole 40 MG TAB PO SCH (21:05)
[2023-03-10] MEDS: metroNIDAZOLE 500 MG/100 ML BAG IV SCH ×4 (00:06→23:23)
[2023-03-10 07:35] LABS: Basophils # (auto) 0.05 K/uL (0.00-0.20); Basophils % (auto) 0.8 %; Eosinophils # (auto) 0.25 K/uL (0.00-0.50); Hematocrit (blood only) 32.8 % (37.0-47.0); Hemoglobin 10.7 g/dl (12.0-16.0); Immature Granulocytes # (auto) 0.02 K/uL (0.01-0.20); Immature Granulocytes % (auto) 0.3 %; Lymphocytes % (auto) 20.7 %; Mean Corpuscular Hgb Conc 32.6 g/dL (32.0-36.0); Mean Corpuscular Volume 88.9 fL (80.0-100.0); Mean Platelet Volume 9.8 fL (9.4-12.4); Monocytes # (auto) 0.47 K/uL (0.11-0.59); Monocytes % (auto) 7.5 %; Neutrophils # (auto) 4.19 K/uL (1.40-6.50); Neutrophils % (auto) 66.7 %; Platelet Count 296 K/uL (130-400); RDW Coefficient of Variation 14.2 % (11.5-14.5); RDW Standard Deviation 46.1 fL (36.4-46.3); Red Blood Count 3.69 M/uL (4.20-5.40); White Blood Count 6.28 K/ul (4.8-10.8)
[2023-03-10 07:54] LABS: Anion Gap 6 (3-11); Blood Urea Nitrogen 11 mg/dl (6-23); Calcium 7.3 mg/dl (8.6-10.3); Chloride 109 mmol/L (98-107); Creatinine Clr Calc Pharmacy 42.5 ml/min; Potassium 3.2 mmol/L (3.5-5.1)
--- NOTE | 2023-03-10 08:13 | Surgery Progress Note ---
<Statement entered by Lili Alegre, DO - 03/10/23 11:36> I have seen this patient this morning and reviewed the plan with her. She is now no longer nauseous and has been able to tolerate oral intake. I explained again that this abscess involving her colon is intramural (within the colon wall) and is not able to be managed percutaneously. We will anticipate resolution of this abscess with oral antibiotics. She will undergo a follow-up CT scan in 1 week and then see me in the office after for further discussion. Date of Service March 10, 2023 Assessment & Plan (1) Acute cholecystitis: Plan: POD 2 lap jaydon Patient reports doing ok Having RUQ 4/10 , po meds helping +flatus Denies N/V, SOB, CP advance to low fat WBC and LFTs WNL Encouraged ambulation Patient is ok for discharge from a surgical standpoint Should have op CT scan in one week and follow up with Dr. Alegre in the office afterwards. Admission and Anticipated Discharge Date Admission Date: March 03, 2023 Subjective Patient reports doing ok Having RUQ 4/10 , po meds helping +flatus Denies N/V, SOB, CP Review of Systems Constitutional: no fever and no chills Respiratory: no dyspnea Cardiovascular: no chest pain Gastrointestinal: + abdominal pain (RUQ 4/10); no nausea a nd no vomiting Genitourinary: no problem reported Neurologic: no localized weakness OOB independently Physical Exam Physical Exam: alert oriented Constitutional: cooperative and comfortable; no acute distress Respiratory: normal respiratory effort and able to speak in complete sentences; no respiratory distress Cardiovascular: Rate/Rhythm: regular rate Gastrointestinal (Abdomen): Inspection/Auscultation: abdomen normal to inspection and + abdominal surgical incision (post operative port sites covered with dermabond CDI); abdomen not distended Percussion/Palpation: + abdomen tender and abdomen soft; no guarding Results & Data Vital Signs (Past 12 Hours) Vital Signs Temp Pulse Pulse Resp BP BP Pulse Ox 03/10/23 07:55 98.4 F 87 18 125/78 93 03/10/23 07:11 73 03/10/23 04:00 98.4 F 82 18 108/66 93 03/10/23 00:12 93 H 03/09/23 23:59 98.6 F 95 H 18 119/71 93 03/09/23 21:41 O2 Del Method 03/10/23 07:55 Room Air 03/10/23 07:11 03/10/23 04:00 Room Air 03/10/23 00:12 03/09/23 23:59 Room Air 03/09/23 21:41 Room Air PG Care Time/CCT Total # of Minutes Spent Total Time Spent with Patient: Total time spent is greater than 50% in coordination of care (as documented) at patient's floor/unit and/or counseling patient: Coding Level of Care Code 75243 Post Operative Follow-Up Diagnoses Acute cholecystitis K81.0
[2023-03-10 08:22] LABS: Albumin Level 2.7 gm/dl (3.4-5.0); Bilirubin,Total 0.6 mg/dl (0.2-1.0); Carbon Dioxide 25 mmol/L (21-32); Magnesium 1.2 mg/dl (1.7-2.4); Sodium 140 mmol/L (136-145)
[2023-03-10] MEDS ORDERED: POTASSIUM CHLORIDE CRTAB 20 MEQ TABCR PO STA (08:24)
[2023-03-10 08:28] LABS: BUN Creatinine Ratio 10.3 (10-20); Est GFR (African American) 58.4 ml/min; Est GFR (Non-African American) 50.4 ml/min; Glucose 107 mg/dl (70-99(Fasting))
[2023-03-10 08:31] LABS: Alanine Aminotransferase 10 U/L (7-52); Albumin Globulin Ratio 1.1 (0.9-2); Alkaline Phosphatase 50 U/L (34-104); Aspartate Aminotransferase 26 U/L (13-39); Globulin 2.5 gm/dl (2.5-4.0); Phosphorus < 1.0 mg/dl (2.5-4.9); Total Protein 5.2 gm/dl (6.0-8.3)
[2023-03-10] MEDS ORDERED: POTASSIUM PHOS 3 MMOL/1 ML INFUSION IV STA ×2 (08:41→15:53)
[2023-03-10] MEDS: METOPROLOL SUCC 25MG EXT REL TAB PO SCH (08:48)
[2023-03-10] MEDS: MAGNESIUM SULFATE / D5W 1 GM/100 ML BAG IV SCH ×2 (08:48→10:29)
[2023-03-10] MEDS: PANTOprazole 40 MG TAB PO SCH ×2 (08:48→20:19)
[2023-03-10] MEDS: oxyCODONE/ACETAMINOPHEN 5mg/325mg TAB PO PRN (08:48)
[2023-03-10] MEDS: FLUTICASONE/VILANTEROL 100/25MCG 14 PUFFS/INHALER INH SCH ×2 (08:49→08:50)
[2023-03-10] MEDS: NYSTATIN SUSP 500,000 U/5 ML UDC PO SCH ×3 (08:49→20:19)
[2023-03-10] MEDS: ONDANSETRON INJ 2 MG/ML 2 ML VIAL IV PRN ×3 (08:49→20:20)
[2023-03-10] MEDS ORDERED: POTASSIUM PHOSPHATE 30 MMOL in SODIUM CHLORIDE 0.9% 500 ML IV ONE (09:00)
[2023-03-10] MEDS: CALCIUM CITRATE 950 MG TAB PO SCH ×3 (10:24→16:47)
[2023-03-10] MEDS: CEFEPIME 2,000 MG in SYRINGE 0 ML IV SCH ×2 (10:29→22:22)
[2023-03-10 15:23] LABS: Potassium 3.7 mmol/L (3.5-5.1)
--- NOTE | 2023-03-10 15:44 | Hospitalist Progress Note ---
Date of Service March 10, 2023 Assessment & Plan (1) Diverticulitis: (2) Acute cholecystitis: (3) Abscess of sigmoid colon: (4) Hypertension: (5) Hyperlipidemia: (6) Asthma: (7) Degenerative arthritis of knee, bilateral: (8) GERD (gastroesophageal reflux disease): Plan Pt is a 77yoF with a PMhx significant for Asthma, COPD, CAD, HTN, Hyperlipidemia, osteoarthritis and GERD admitted with diverticulitis with abscess and acute cholecystitis. Acute diverticulitis with abscess Acute cholecystitis Patient presented with abdominal pain for several days. Recently admitted from 02/10 to 02/14 with sigmoid diverticulitis; managed conservatively; finished course of antibiotics Presented to her PCP office on the day of this admission with abdominal pain. CT abdomen pelvis done outpatient showed diverticulitis with abscess in distal sigmoid colon measuring 3.2 x 2.0 x 3.[address] abdomen and pelvis done on 03/07: -Cholelithiasis with acute cholecystitis present, sigmoid diverticulitis slightly improved. Multiloculated intramural abscess of 4 cm. Right upper quadrant ultrasound compatible with acute cholecystitis WBC has not been elevated at any point. General Surgery consult, appreciate recs -s/p laparoscopic cholecystectomy on 03/08. -No plans for IR intervention for abscess presently as abscess intramural and cannot be drained. -Recommending treating with oral antibiotics and advising repeat CT a bd/pelvis in 1 week with follow up with Dr. Mireles at that time, next steps to be determined at that time. -Per discussion with General Surgery, can include bowel resection if not improved or worsening -Consider Flagyl and cefdinir/cipro for PO abx on discharge Continue IV cefepime and Flagyl while hospitalized, transition to PO once pt tolerating PO well Continue supportive care with antiemetics, and IV fluids as needed Diet currently low fat, being advanced by Surgery. Also on nystatin for suspected oral thrush per Gen Surg HTN Chronic, stable Cont metoprolol succinate 25 mg QAM HLD Chronic, stable Cont fish oil, rosuvastatin Hx of asthma Continue Singulair and inhalers OA Chronic, stable GERD Chronic, stable cont ppi DVT ppx: Lovenox ordered Diet:Low fat at this time CODE: FULL Dispo: Pt to return home before surgery, might need re-assessment once more stable post-op. PT/OT re-ordered. Admission and Anticipated Discharge Date Admission Date: March 03, 2023 Subjective Pt seen with at the bedside in the PM. States that she has been having soft/liquid stools, almost diarrhea. Had just eaten chicken noodle soup and states she has been tolerating that well at that time. Otherwise denied acute concerns. States she was seen by Gen Surg and is aware and agreeable to the plan for repeat CT testing. Review of Systems Review of Systems: All systems reviewed & are unremarkable except as noted in Subjective Physical Exam Physical Exam: General: Alert, oriented. Psych: Appropriate mood and affect Neuro: No gross deficits HEENT: NC/AT Chest: Nontender to palpation. CV: RRR Resp: Breath sounds clear bilaterally, no increased effort of breathing. Abdomen:Soft, diffusely tender Extremities: No edema in lower extremities bilaterally. Results & Data Results & Data Vital Signs (Past 12 Hours) Vital Signs Temp Pulse Pulse Resp BP BP Pulse Ox 03/10/23 15:25 89 03/10/23 11:54 36.8 C 77 20 112/71 03/10/23 11:16 36.8 C 77 16 116/72 95 03/10/23 11:12 03/10/23 07:55 36.9 C 87 18 125/78 93 03/10/23 07:11 73 03/10/23 04:00 36.9 C 82 18 108/66 93 O2 Del Method 03/10/23 15:25 03/10/23 11:54 Room Air 03/10/23 11:16 Room Air 03/10/23 11:12 Room Air 03/10/23 07:55 Room Air 03/10/23 07:11 03/10/23 04:00 Room Air
[2023-03-10] MEDS: PROMETHAZINE HCL 6.25 MG in SODIUM CHLORIDE 0.9% 50 ML IV PRN (16:24)
[2023-03-10] MEDS ORDERED: POTASSIUM PHOSPHATE 15 MMOL in SODIUM CHLORIDE 0.9% 250 ML IV ONE (16:30)
[2023-03-10] MEDS: ENOXAPARIN INJ 40 MG/0.4 ML SYR SQ SCH (16:31)
[2023-03-10] MEDS: MONTELUKAST SODIUM 10 MG TABLET PO SCH (20:18)
[2023-03-10] MEDS: POTASSIUM CHLORIDE CRTAB 20 MEQ TABCR PO SCH (20:19)
[2023-03-10] MEDS: ROSUVASTATIN CALCIUM 20 MG TAB PO SCH (20:20)
[2023-03-11] MEDS: metroNIDAZOLE 500 MG/100 ML BAG IV SCH ×2 (07:40→15:24)
[2023-03-11] MEDS: ONDANSETRON INJ 2 MG/ML 2 ML VIAL IV PRN ×2 (07:40→12:19)
[2023-03-11 07:53] LABS: Albumin Level 2.8 gm/dl (3.4-5.0); BUN Creatinine Ratio 8.2 (10-20); Bilirubin,Total 0.5 mg/dl (0.2-1.0); Calcium 7.5 mg/dl (8.6-10.3); Creatinine Clr Calc Pharmacy 45.3 ml/min; Est GFR (African American) 65.8 ml/min; Est GFR (Non-African American) 56.7 ml/min; Globulin 2.7 gm/dl (2.5-4.0); Magnesium 1.6 mg/dl (1.7-2.4); Phosphorus 1.9 mg/dl (2.5-4.9); Potassium 3.6 mmol/L (3.5-5.1); Total Protein 5.5 gm/dl (6.0-8.3)
[2023-03-11 08:07] LABS: Basophils # (auto) 0.06 K/uL (0.00-0.20); Basophils % (auto) 0.8 %; Eosinophils # (auto) 0.12 K/uL (0.00-0.50); Eosinophils % (auto) 1.6 %; Hematocrit (blood only) 32.2 % (37.0-47.0); Hemoglobin 10.7 g/dl (12.0-16.0); Immature Granulocytes # (auto) 0.03 K/uL (0.01-0.20); Immature Granulocytes % (auto) 0.4 %; Lymphocytes # (auto) 1.31 K/uL (1.20-3.40); Lymphocytes % (auto) 17.6 %; Mean Corpuscular Hemoglobin 29.2 pg (25.0-34.0); Mean Corpuscular Hgb Conc 33.2 g/dL (32.0-36.0); Mean Corpuscular Volume 87.7 fL (80.0-100.0); Mean Platelet Volume 10.6 fL (9.4-12.4); Monocytes # (auto) 0.64 K/uL (0.11-0.59); Monocytes % (auto) 8.6 %; Platelet Count 317 K/uL (130-400); RDW Coefficient of Variation 14.2 % (11.5-14.5); RDW Standard Deviation 46.3 fL (36.4-46.3); Red Blood Count 3.67 M/uL (4.20-5.40); White Blood Count 7.46 K/ul (4.8-10.8)
[2023-03-11] MEDS ORDERED: POTASSIUM PHOS 3 MMOL/1 ML INFUSION IV STA (08:11)
[2023-03-11] MEDS: FLUTICASONE/VILANTEROL 100/25MCG 14 PUFFS/INHALER INH SCH (08:11)
[2023-03-11] MEDS: CALCIUM CITRATE 950 MG TAB PO SCH ×3 (08:11→17:41)
[2023-03-11] MEDS: METOPROLOL SUCC 25MG EXT REL TAB PO SCH (08:11)
[2023-03-11] MEDS: POTASSIUM CHLORIDE CRTAB 20 MEQ TABCR PO SCH ×2 (08:12→19:40)
[2023-03-11] MEDS: PANTOprazole 40 MG TAB PO SCH ×2 (08:12→19:40)
[2023-03-11] MEDS: NYSTATIN SUSP 500,000 U/5 ML UDC PO SCH ×3 (08:12→19:41)
[2023-03-11] MEDS ORDERED: POTASSIUM PHOSPHATE 24 MMOL in SODIUM CHLORIDE 0.9% 500 ML IV ONE (08:15)
--- NOTE | 2023-03-11 08:16 | Hospitalist Progress Note ---
Date of Service March 11, 2023 Assessment & Plan (1) Diverticulitis: (2) Acute cholecystitis: (3) Abscess of sigmoid colon: (4) Hypertension: (5) Hyperlipidemia: (6) Asthma: (7) Degenerative arthritis of knee, bilateral: (8) GERD (gastroesophageal reflux disease): Plan Pt is a 77yoF with a PMhx significant for Asthma, COPD, CAD, HTN, Hyperlipidemia, osteoarthritis and GERD admitted with diverticulitis with abscess and acute cholecystitis. Acute diverticulitis with abscess Acute cholecystitis Patient presented with abdominal pain for several days. Recently admitted from 02/10 to 02/14 with sigmoid diverticulitis; managed conservatively; finished course of antibiotics Presented to her PCP office on the day of this admission with abdominal pain. CT abdomen pelvis done outpatient showed diverticulitis with abscess in distal sigmoid colon measuring 3.2 x 2.0 x 3[address] abdomen and pelvis done on 03/07: -Cholelithiasis with acute cholecystitis present, sigmoid diverticulitis slightly improved. Multiloculated intramural abscess of 4 cm. Right upper quadrant ultrasound compatible with acute cholecystitis WBC has not been elevated at any point. General Surgery consult, appreciate recs -s/p laparoscopic cholecystectomy on 03/08. -No plans for IR intervention for abscess presently as abscess intramural and cannot be drained. -Recommending treating with oral antibiotics and advising repeat CT a bd/pelvis in 1 week with follow up with Dr. Mireles at that time, next steps to be determined at that time. -Per discussion with General Surgery, can include bowel resection if not improved or worsening -Consider Flagyl and cefdinir/cipro for PO abx on discharge Continue IV cefepime and Flagyl while hospitalized, transition to PO once pt tolerating PO well Continue supportive care with antiemetics (currently scheduled reglan) Diet currently low fat, pt not tolerating well at this time. Reglan scheduled. KUB 02/08- no concern for obstruction. Also on nystatin for suspected oral thrush per Gen Surg Electrolyte Derangements Hypokalemia Hypophosphatemia- significant, phosphorus level was below 1 Hypomagnesemia Hypocalcemia -Noted on 03/10 -replete as needed Cough Pt states she is having productive cough Chest xray with noted new small pleural effusions, pulm vasc congestion Cardiac silhouette also mildly enlarged. IV lasix 40mg given, consider moses Consider echo for further follow up of the heart. Diarrhea Per pt stools have some form C diff canceled Started on Imodium HTN Chronic, stable Cont metoprolol succinate 25 mg QAM HLD Chronic, stable Cont fish oil, rosuvastatin Hx of asthma Continue Singulair and inhalers OA Chronic, stable GERD Chronic, stable cont ppi DVT ppx: Lovenox ordered Diet:Low fat at this time CODE: FULL Dispo: Pt to return home before surgery, might need re-assessment once more stable post-op. PT/OT re-ordered. Admission and Anticipated Discharge Date Admission Date: March 03, 2023 Subjective Pt seen multiple times during the day. In the AM, stated that she was not feeling better. Coughing up mucus like material. Feels like something is going on in her chest. States she was not able to tolerate breakfast, still throwing up. Having diarrhea, not watery but with some form. Also saw pt at the end of the day to communicate results. Review of Systems Review of Systems: All systems reviewed & are unremarkable except as noted in Subjective Physical Exam Physical Exam: General: Alert, oriented. Psych: Appropriate mood and affect Neuro: No gross deficits HEENT: NC/AT Chest: Nontender to palpation. CV: RRR Resp: Breath sounds clear bilaterally, no increased effort of breathing. Abdomen:Soft, diffusely tender Extremities: No edema in lower extremities bilaterally. Results & Data Results & Data Vital Signs (Past 12 Hours) Vital Signs Temp Pulse Pulse Resp BP Pulse Ox O2 Del Method 03/11/23 04:00 36.7 C 91 H 18 135/78 93 Room Air 03/11/23 01:42 91 H 03/11/23 00:00 36.9 C 95 H 18 123/76 93 Room Air 03/10/23 21:17 Room Air
[2023-03-11] MEDS: MAGNESIUM SULFATE / D5W 1 GM/100 ML BAG IV SCH ×2 (09:22→11:23)
[2023-03-11] MEDS: POT PHOSPHATE MONOBASIC W/ SOD TAB PO SCH ×4 (09:30→19:41)
[2023-03-11] MEDS: MAGNESIUM OXIDE 400 MG TAB PO SCH ×2 (09:30→19:39)
[2023-03-11] MEDS: CEFEPIME 2,000 MG in SYRINGE 0 ML IV SCH ×2 (10:57→22:18)
--- NOTE | 2023-03-11 15:03 | XRay Report ---
XR chest 1V portable HISTORY: cough COMPARISON: Chest 03/03/2023. FINDINGS: No pneumothorax. The cardiac silhouette is mildly enlarged. There are bibasilar linear dens ities which favor subsegmental atelectasis or scarring. Otherwise, no new focal lung consolidations t o suggest a pneumonia. Mild interstitial thickening persists and is likely chronic. There is mild pul monary vascular congestion without overt edema. A small right pleural effusion is new compared to the prior study. Prior cholecystectomy. IMPRESSION: 1. Cardiomegaly with mild pulmonary vascular congestion and a small right pleural effusion. 2. Bibasilar linear densities are nonspecific but favor subsegmental atelectasis/scarring. 3. Mild cardiomegaly. 4. Chronic interstitial thickening persists. ACT 112: Negative or not required by law. Electronically signed by: Sandip Canales M.D. 03/11/2023 3:02 PM
--- NOTE | 2023-03-11 15:04 | XRay Report ---
KUB CLINICAL HISTORY: Nausea and vomiting. COMPARISON STUDY: CT of the abdomen and pelvis March 07, 2023. FINDINGS: Cholecystectomy clips and proximal right femoral cannulated screws are incidentally noted. The bowel gas pattern is normal. Amount of stool is within normal limits. IMPRESSION: Unremarkable KUB. No evidence for a bowel obstruction. ACT 112: Negative or not required by law. Electronically signed by: Gene Hastings M.D. 03/11/2023 3:02 PM
[2023-03-11] MEDS: ENOXAPARIN INJ 40 MG/0.4 ML SYR SQ SCH (15:23)
[2023-03-11] MEDS: ALUMINUM/MAGNESIUM/SIMETH (MAALOX MAX) 30 ML UDC PO PRN (16:49)
[2023-03-11] MEDS ORDERED: FUROSEMIDE 40 MG/4 ML VIAL IV ONE (19:11)
[2023-03-11] MEDS: ROSUVASTATIN CALCIUM 20 MG TAB PO SCH (19:39)
[2023-03-11] MEDS: MONTELUKAST SODIUM 10 MG TABLET PO SCH (19:39)
[2023-03-11] MEDS ORDERED: LOPERAMIDE HCL 2 MG CAP PO STA (21:51)
[2023-03-11] MEDS ORDERED: LOPERAMIDE HCL 2 MG CAP PO PRN (21:51)
[2023-03-11] MEDS: METOCLOPRAMIDE HCL 5 MG TABLET PO SCH (22:18)
[2023-03-12] MEDS: metroNIDAZOLE 500 MG/100 ML BAG IV SCH ×3 (00:14→16:47)
[2023-03-12] MEDS: METOCLOPRAMIDE HCL 5 MG TABLET PO SCH ×3 (06:05→22:44)
[2023-03-12 06:37] LABS: Basophils # (auto) 0.05 K/uL (0.00-0.20); Basophils % (auto) 0.8 %; Eosinophils # (auto) 0.07 K/uL (0.00-0.50); Eosinophils % (auto) 1.1 %; Hematocrit (blood only) 30.9 % (37.0-47.0); Hemoglobin 10.4 g/dl (12.0-16.0); Immature Granulocytes # (auto) 0.02 K/uL (0.01-0.20); Immature Granulocytes % (auto) 0.3 %; Lymphocytes # (auto) 1.46 K/uL (1.20-3.40); Lymphocytes % (auto) 22.7 %; Mean Corpuscular Hemoglobin 28.8 pg (25.0-34.0); Mean Corpuscular Hgb Conc 33.7 g/dL (32.0-36.0); Mean Corpuscular Volume 85.6 fL (80.0-100.0); Mean Platelet Volume 9.6 fL (9.4-12.4); Monocytes # (auto) 0.59 K/uL (0.11-0.59); Monocytes % (auto) 9.2 %; Neutrophils # (auto) 4.23 K/uL (1.40-6.50); Neutrophils % (auto) 65.9 %; Platelet Count 329 K/uL (130-400); RDW Coefficient of Variation 13.9 % (11.5-14.5); RDW Standard Deviation 43.5 fL (36.4-46.3); Red Blood Count 3.61 M/uL (4.20-5.40); White Blood Count 6.42 K/ul (4.8-10.8)
[2023-03-12 08:34] LABS: Albumin Globulin Ratio 1.1 (0.9-2); Albumin Level 2.9 gm/dl (3.4-5.0); BUN Creatinine Ratio 7.8 (10-20); Bilirubin,Total 0.5 mg/dl (0.2-1.0); Calcium 7.2 mg/dl (8.6-10.3); Creatinine Clr Calc Pharmacy 43.1 ml/min; Est GFR (African American) 61.9 ml/min; Est GFR (Non-African American) 53.4 ml/min; Globulin 2.6 gm/dl (2.5-4.0); Magnesium 1.7 mg/dl (1.7-2.4); Phosphorus 3.6 mg/dl (2.5-4.9); Potassium 3.2 mmol/L (3.5-5.1); Total Protein 5.5 gm/dl (6.0-8.3)
[2023-03-12] MEDS ORDERED: STAT IV/IM STA (08:59)
--- NOTE | 2023-03-12 09:00 | Hospitalist Progress Note ---
Date of Service March 12, 2023 Assessment & Plan (1) Diverticulitis: (2) Acute cholecystitis: (3) Abscess of sigmoid colon: (4) Hypertension: (5) Hyperlipidemia: (6) Asthma: (7) Degenerative arthritis of knee, bilateral: (8) GERD (gastroesophageal reflux disease): Plan Pt is a 77yoF with a PMhx significant for Asthma, COPD, CAD, HTN, Hyperlipidemia, osteoarthritis and GERD admitted with diverticulitis with abscess and acute cholecystitis. Acute diverticulitis with abscess Acute cholecystitis Patient presented with abdominal pain for several days. Recently admitted from 02/10 to 02/14 with sigmoid diverticulitis; managed conservatively; finished course of antibiotics Presented to her PCP office on the day of this admission with abdominal pain. CT abdomen pelvis done outpatient showed diverticulitis with abscess in distal sigmoid colon measuring 3.2 x 2.0 x 3[address] abdomen and pelvis done on 03/07: -Cholelithiasis with acute cholecystitis present, sigmoid diverticulitis slightly improved. Multiloculated intramural abscess of 4 cm. Right upper quadrant ultrasound compatible with acute cholecystitis WBC has not been elevated at any point. General Surgery consult, appreciate recs -s/p laparoscopic cholecystectomy on 03/08. -No plans for IR intervention for abscess presently as abscess intramural and cannot be drained. -Recommending treating with oral antibiotics and advising repeat CT a bd/pelvis in 1 week with follow up with Dr. Mireles at that time, next steps to be determined at that time. -Per discussion with General Surgery, can include bowel resection if not improved or worsening -Consider Flagyl and cefdinir/cipro for PO abx on discharge Continue IV cefepime and Flagyl while hospitalized, transition to PO once pt tolerating PO well Continue supportive care with antiemetics (currently scheduled reglan) Diet currently low fat, pt not tolerating well at this time. Reglan scheduled. KUB 02/08- no concern for obstruction. Also on nystatin for suspected oral thrush per Gen Surg Electrolyte Derangements Hypokalemia Hypophosphatemia- significant, phosphorus level was below 1 Hypomagnesemia Hypocalcemia -Noted on 03/10 -replete as needed Cough Pt states she is having productive cough Chest xray with noted new small pleural effusions, pulm vasc congestion Cardiac silhouette also mildly enlarged. IV lasix 40mg given, consider moses Consider echo for further follow up of the heart. Diarrhea Per pt stools have some form C diff canceled Started on Imodium HTN Chronic, stable Cont metoprolol succinate 25 mg QAM HLD Chronic, stable Cont fish oil, rosuvastatin Hx of asthma Continue Singulair and inhalers OA Chronic, stable GERD Chronic, stable cont ppi DVT ppx: Lovenox ordered Diet:Low fat at this time CODE: FULL Dispo: Pt to return home before surgery, might need re-assessment once more stable post-op. PT/OT re-ordered. Admission and Anticipated Discharge Date Admission Date: March 03, 2023 Physical Exam Physical Exam: General: Alert, oriented. Psych: Appropriate mood and affect Neuro: No gross deficits HEENT: NC/AT Chest: Nontender to palpation. CV: RRR Resp: Breath sounds clear bilaterally, no increased effort of breathing. Abdomen:Soft, diffusely tender Extremities: No edema in lower extremities bilaterally. Results & Data Results & Data Vital Signs (Past 12 Hours) Vital Signs Temp Pulse Pulse Resp BP Pulse Ox O2 Del Method 03/12/23 07:47 84 03/12/23 07:40 37.1 C 82 16 121/72 92 Room Air 03/12/23 03:28 36.8 C 99 H 20 143/75 H 92 Room Air 03/12/23 01:28 Room Air 03/11/23 22:24 36.6 C 91 H 20 129/71 90 Room Air 03/11/23 22:01 102 H Medications Administered Current Inpatient Medications Acetaminophen (Acetaminophen 325 Mg Tab) 650 mg PO Q4H PRN PRN Reason: Moderate Pain (Scale 4, 5, 6) Stop: 04/02/23 16:41 Last Admin: 03/09/23 02:43 Dose: 650 mg Al Hydrox/Mg Hydrox/Simethicone (Aluminum/Magnesium/Simeth (Maalox Max) 30 Ml Udc) 15 ml PO Q6H PRN PRN Reason: Indigestion Stop: 04/08/23 11:06 Last Admin: 03/11/23 16:49 Dose: 15 ml Albuterol (Albuterol 0.083% Nebu Soln 3 Ml Vial) 2.5 mg NEB Q6R PRN; Protocol PRN Reason: Shortness Of Breath Stop: 04/02/23 18:28 Calcium Citrate (Calcium Citrate 950 Mg Tab) 950 mg PO PC ALFREDA Stop: 04/09/23 08:59 Last Admin: 03/12/23 16:49 Dose: Not Given Enoxaparin Sodium (Enoxaparin Inj 40 Mg/0.4 Ml Syr) 40 mg SQ Q24H [facility] Stop: 04/08/23 14:59 Last Admin: 03/12/23 15:05 Dose: 40 mg Fluticasone/Vilanterol (Fluticasone/Vilanterol 100/25mcg 14 Puffs/Inhaler) 1 puffs INH DAILY ALFREDA Stop: 04/03/23 08:59 Last Admin: 03/12/23 09:39 Dose: 1 puffs Metronidazole (Flagyl) 500 mg in 100 mls @ 100 mls/hr IV Q8H [facility]; Protocol Stop: 03/14/23 08:14 Last Infusion: 03/12/23 18:00 Dose: Infused Cefepime HCl 2,000 mg/ Syringe 20 mls @ 5 mls/min IV Q12H [facility]; Protocol Stop: 03/14/23 21:59 Last Admin: 03/12/23 10:47 Dose: 5 mls/min Loperamide HCl (Loperamide Hcl 2 Mg Cap) 2 mg PO Q6H PRN PRN Reason: Diarrhea Stop: 04/10/23 21:50 Magnesium Oxide (Magnesium Oxide 400 Mg Tab) 400 mg PO BID [facility] Stop: 04/10/23 08:59 Last Admin: 03/12/23 09:46 Dose: 400 mg Metoclopramide HCl (Metoclopramide Hcl 5 Mg Tablet) 5 mg PO Q8 ALFREDA Stop: 03/13/23 21:59 Last Admin: 03/12/23 15:09 Dose: 5 mg Metoprolol Succinate (Metoprolol Succ 25mg Ext Rel Tab) 25 mg PO QAM ALFREDA Stop: 04/03/23 08:59 Last Admin: 03/12/23 09:45 Dose: 25 mg Montelukast Sodium (Montelukast Sodium 10 Mg Tablet) 10 mg PO HS [facility] Stop: 04/03/23 20:59 Last Admin: 03/11/23 19:39 Dose: 10 mg Nystatin (Nystatin Susp 500,000 U/5 Ml Udc) 10 ml PO TID ALFREDA Stop: 03/16/23 13:59 Last Admin: 03/12/23 13:59 Dose: Not Given Oxycodone/Acetaminophen (Oxycodone/Acetaminophen 5mg/325mg Tab) 1 tab PO Q4H PRN PRN Reason: Moderate Pain (Scale 4, 5, 6) Stop: 03/23/23 13:36 Last Admin: 03/10/23 08:48 Dose: 1 tab Oxycodone/Acetaminophen (Oxycodone/Acetaminophen 5mg/325mg Tab) 2 tab PO Q4H PRN PRN Reason: Severe Pain (Scale 7, 8, 9,10) Stop: 03/23/23 13:38 Last Admin: 03/12/23 17:53 Dose: 2 tab Pantoprazole Sodium (Pantoprazole 40 Mg Tab) 40 mg PO BID [facility]; Protocol Stop: 04/08/23 20:59 Last Admin: 03/12/23 09:46 Dose: 40 mg Potassium Chloride (Potassium Chloride Crtab 20 Meq Tabcr) 20 meq PO BID [facility] Stop: 04/09/23 20:59 Last Admin: 03/12/23 09:45 Dose: 20 meq Potassium Phosphate (Pot Phosphate Monobasic W/ Sod Tab) 2 tab PO QID ALFREDA Stop: 04/10/23 08:59 Last Admin: 03/12/23 16:48 Dose: Not Given Rosuvastatin Calcium (Rosuvastatin Calcium 20 Mg Tab) 20 mg PO HS [facility] Stop: 04/03/23 20:59 Last Admin: 03/11/23 19:39 Dose: 20 mg Simethicone (Simethicone 80 Mg Chew) 80 mg PO Q6H PRN PRN Reason: Flatulence Stop: 04/11/23 10:40 Last Admin: 03/12/23 12:45 Dose: 80 mg
[2023-03-12] MEDS: FLUTICASONE/VILANTEROL 100/25MCG 14 PUFFS/INHALER INH SCH (09:39)
[2023-03-12] MEDS: CALCIUM GLUCONATE 10% 1,000 MG in SODIUM CHLOR 0.9% MINI-B 50 ML IV SCH ×2 (09:42→09:45)
[2023-03-12] MEDS: CALCIUM CITRATE 950 MG TAB PO SCH ×3 (09:45→16:49)
[2023-03-12] MEDS: POTASSIUM CHLORIDE CRTAB 20 MEQ TABCR PO SCH ×2 (09:45→20:15)
[2023-03-12] MEDS: METOPROLOL SUCC 25MG EXT REL TAB PO SCH (09:45)
[2023-03-12] MEDS: PANTOprazole 40 MG TAB PO SCH ×2 (09:46→20:08)
[2023-03-12] MEDS: MAGNESIUM OXIDE 400 MG TAB PO SCH ×2 (09:46→20:07)
[2023-03-12] MEDS: POT PHOSPHATE MONOBASIC W/ SOD TAB PO SCH ×4 (09:46→20:15)
[2023-03-12] MEDS: NYSTATIN SUSP 500,000 U/5 ML UDC PO SCH ×3 (09:46→20:39)
[2023-03-12] MEDS ORDERED: SIMETHICONE 80 MG CHEW PO PRN (10:41)
[2023-03-12] MEDS: CEFEPIME 2,000 MG in SYRINGE 0 ML IV SCH ×2 (10:47→22:44)
[2023-03-12] MEDS ORDERED: OPTIRAY 320 100ml IV ONE (14:32)
[2023-03-12] MEDS: ENOXAPARIN INJ 40 MG/0.4 ML SYR SQ SCH (15:05)
--- NOTE | 2023-03-12 17:06 | CT Scan Report ---
CT abd pelvis IV con only CLINICAL HISTORY: 12/16 abdominal pain TECHNIQUE: Helical axial images of the abdomen and pelvis were obtained and displayed. Automated dose lowering techniques and/or adjustment according to patient size were utilized for this exam. This e xam was performed with intravenous contrast. CT DOSE: 1026.91 mGy.cm COMPARISON: Comparison is made to CT abdomen pelvis 03/07/2023 FINDINGS: Lower chest: Bibasilar atelectasis versus scarring is seen. There are small bilateral pleural effusi ons. Liver: Unremarkable. No focal lesions are seen. Gallbladder and biliary tree: Patient is status post cholecystectomy. Physiologic prominence of the b iliary ducts is noted. Pancreas: Unremarkable, no focal lesions. Spleen: Unremarkable. Adrenals: Unremarkable. Kidneys and ureters: Renal cysts are seen. Bladder: Unremarkable. Reproductive organs: Unremarkable. Bowel: Interval enlargement of abscess adjacent to the sigmoid colon in this patient with diverticuli tis, the abscess presently measures 26 x 47 mm compared to 15 x 42 mm. Wall thickening is again seen. The appendix is unremarkable. There is a small hiatal hernia. Lymph nodes Retroperitoneal: Unremarkable. Pelvic: Unremarkable. Mesenteric: Unremarkable. Peritoneum: Soft tissue stranding and a small amount of free fluid is in the gallbladder fossa. Soft tissue stranding is also seen in the region of the pelvis. Vessels: Atherosclerotic calcifications are seen. Abdominal wall: Unremarkable. Bones: Degenerative changes in the visualized spine. Right femoral neck hardware is seen. IMPRESSION: 1. Interval enlargement of intrarenal abscess of the sigmoid colon. No brinda pneumoperitoneum is see n however continued diverticulitis is noted. 2. Interval cholecystectomy. Soft tissue stranding and a small amount of free fluid is seen in the g allbladder fossa. Correlate with surgical history. 3. Additional findings as above. ACT 112: Negative or not required by law. Electronically signed by: Ramiro Russell M.D. 03/12/2023 5:03 PM
--- NOTE | 2023-03-12 17:27 | Surgery Progress Note ---
Date of Service March 12, 2023 Assessment & Plan (1) Abscess of sigmoid colon: Plan: May have started intramural and progressed. Now larger and adjacent to colon on CT. Appears to be drainable. Would recommend IR evaluation for consideration of percutaneous drain. This may necessitate transfer to facility with IR availability. Admission and Anticipated Discharge Date Admission Date: March 03, 2023 Subjective Asked to review imaging done for increased pain - pt reporting 8/[address] scan done Results & Data Vital Signs (Past 12 Hours) Vital Signs Temp Pulse Pulse Resp BP Pulse Ox O2 Del Method 03/12/23 16:20 37.2 C 94 H 16 129/82 90 Room Air 03/12/23 15:33 96 H 03/12/23 11:11 36.6 C 73 16 125/75 90 Room Air 03/12/23 07:47 84 03/12/23 07:40 37.1 C 82 16 121/72 92 Room Air Diagnostic Findings CT scan images reviewed - abscess is larger - appears to be adjacent to sigmoid colon and to my eyes, may be drainable.
[2023-03-12] MEDS ORDERED: POTASSIUM CHLORIDE CRTAB 20 MEQ TABCR PO STA (17:50)
[2023-03-12] MEDS ORDERED: POTASSIUM CHLORIDE 20 MEQ/15 ML UDC PO STA (18:01)
--- NOTE | 2023-03-12 19:52 | Discharge Summary ---
Discharge Summary Date of Service March 12, 2023 Notes For Next Care Provider See Summary below Medication Changes From Visit See Summary below Admission HPI Per Admitting Provider This is a 77 year old female with a history of Asthma, COPD, CAD, HTN, Hyperlipidemia, osteoarthritis and GERD who presented to PCP office on 03/02 for continued abdominal pain. Per chart review, it appears she was treated initially on 02/07 with cipro/flagyl by PCP when her abdominal pain and constipation had been present for a week already at that point. Patient was admitted to [facility] 02/10/2023- 02/14/2023 and diagnosed with Diverticulitis. She was treated with antibiotics for 10 days with cefdinir and flagyl, which finished on 02/21. Pt was referred to follow up with GI for an outpatient colonoscopy in about 6 weeks. Cholestyramine was added to her regimen as her bowels switched to being diarrhea, and was treated with such for loose stools at that time. She represented to her PCP office for hospital follow up yesterday on 03/02 and states that lower abdominal pain and loss of appetite were still present. Initially things were a little, better, but never completely resolved. She still has dull achey RLQ pain and loose stools, no blood. She is moving her bowels up to 2-3 times daily, intermittent nausea, and last night vomited mucous, + chills. She was able to take her metoprolol, probiotic, and omeprazole today, but otherwise has not been able to take her vitamins due to her stomach issues. No chest pain or shortness of breath are present. WBC from outpatient labs was 7.85 yesterday, she is afebrile here. CT abd pelvis was done earlier today, 03/03 and showed an abscess in the sigmoid colon along with diverticulitis. Admission Exam Per Admitting Provider General: Elderly woman in no distress Eyes: PERRL, conjunctivae normal, not pale, anicteric sclerae, EOM intact bilaterally ENMT: External ear and nose normal, oropharynx normal Respiratory: Normal respiratory effort, no respiratory distress, lungs clear to auscultation, no crackles and no wheezes Cardiovascular: Tachycardic, normal rhythm, S1 S2 Gastrointestinal (Abdomen): Abdomen is not distended, soft, +tenderness in suprapubic area and RLQ, no guarding, no palpable hepatosplenomegaly, normal bowel sounds Musculoskeletal: No pedal edema Genitourinary:No CVA tenderenss Neurologic: Alert and oriented x 3, No focal weakness, sensation grossly intact Psychiatric: Euthymic affect Principal Dx & Hospital Course #1 = Principal Diagnosis (1) Diverticulitis: (2) Acute cholecystitis: (3) Abscess of sigmoid colon: (4) Hypertension: (5) Hyperlipidemia: (6) Asthma: (7) Degenerative arthritis of knee, bilateral: (8) GERD (gastroesophageal reflux disease): Plan Pt is a 77yoF with a PMhx significant for Asthma, COPD, CAD, HTN, Hyperlipidemia, osteoarthritis and GERD admitted with progressing diverticulitis with abscess and acute cholecystitis. Acute diverticulitis with abscess Acute cholecystitis Patient presented with abdominal pain for several days. Recently admitted from 02/10 to 02/14 with sigmoid diverticulitis; managed conservatively; finished course of antibiotics Presented to her PCP office on the day of this admission 03/[address] abdomen pelvis done outpatient showed diverticulitis with abscess in distal sigmoid colon measuring 3.2 x 2.0 x 3[address] abdomen and pelvis done on 03/07: -Cholelithiasis with acute cholecystitis present, sigmoid diverticulitis slightly improved. Multiloculated intramural abscess of 4 x 4 by 1.5 cm. Right upper quadrant ultrasound compatible with acute cholecystitis WBC has not been elevated at any point. General Surgery consult, appreciate recs -s/p laparoscopic cholecystectomy on 03/08. -No plans for IR intervention for abscess at that time as it was deemed intramural and could not be drained. -Recommended treating with oral antibiotics and advised repeat CT abd/pelvis in 1 week with follow up with general surgeon at that time, next steps to be determined. -Per discussion with General Surgery, next steps can include bowel resection if not improved or worsening Pt having persistent N/V and 8/10 abdominal pain- repeat CT abd/pelvis obtained that noted increased size of abscess 2.6 x 4.7 cm. General Surgery contacted urgently- advising that per their read, abscess now able to be drained percutaneously, recommending transfer to a facility with urgent IR capabilities. Advising that other option would be colectomy. Discussed with pt and daughter at bedside, she would like to be transferred for possible IR drainage. Transfer to [facility] for further evaluation. Electrolyte Derangements Hypokalemia Hypophosphatemia- significant, phosphorus level was below 1 Hypomagnesemia Hypocalcemia -repleted as needed Cough Pt states she is having productive cough Chest xray with noted new small pleural effusions, pulm vasc congestion Cardiac silhouette also mildly enlarged. IV lasix 40mg given Continue to monitor Diarrhea Per pt stools have some form C diff canceled Started on Imodium HTN Chronic, stable Cont metoprolol succinate 25 mg QAM HLD Chronic, stable Cont fish oil, rosuvastatin Hx of asthma Continue Singulair and inhalers OA Chronic, stable GERD Chronic, stable cont ppi Discharge Exam General: Alert, oriented. Psych: Appropriate mood and affect Neuro: No gross deficits HEENT: NC/AT Chest: Nontender to palpation. CV: RRR Resp: Breath sounds clear bilaterally, no increased effort of breathing. Abdomen:Soft, diffusely tender Extremities: No edema in lower extremities bilaterally. Updated Medication List Medication Instructions Recorded Confirmed Type calcium acetate(phosphat bind) 667 667 mg PO HS ##0 11/12/10 03/03/23 History mg tablet multivitamin 1 tab PO DAILY ##0 11/12/10 03/03/23 History omega 9-oga-kyu-fish oil 1,000 mg 1 cap PO DAILY ##0 11/12/10 03/03/23 History (120 mg-180 mg) capsule (Fish Oil) omeprazole 20 mg capsule,delayed 20 mg PO BID ##0 11/12/10 03/03/23 History release cholecalciferol (vitamin D3) 25 1,000 unit PO DAILY 01/25/19 03/03/23 History mcg (1,000 unit) capsule (Vitamin D3) metoprolol succinate 25 mg 25 mg PO QAM 01/25/19 03/03/23 History tablet,extended release 24 hr montelukast 10 mg tablet 10 mg PO HS 01/25/19 03/03/23 History ascorbic acid (vitamin C) 250 mg 250 mg PO QAM 06/01/19 03/03/23 History chewable tablet (Vitamin C) fluticasone propionate 50 1 spray intranasal DAILY 06/01/19 03/03/23 History mcg/actuation nasal spray,suspension (Flonase Allergy Relief) glucosamine-chondroitin 250 mg-200 1 tab PO QAM 06/01/19 03/03/23 History mg tablet (Osteo Bi-Flex) denosumab 60 mg/mL subcutaneous 60 mg subcut .[id number] 02/10/23 03/03/23 History syringe (Prolia) fluticasone fur. 200 mcg-umeclid 1 inh inhalation PM 02/10/23 03/03/23 History 62.5 mcg-vilant 25 mcg inhalat.powder (Trelegy Ellipta) rosuvastatin 20 mg tablet 20 mg PO HS 02/10/23 03/03/23 History Lactobacillus acidophilus 1 1,000 mmu cells PO DAILY #7 caps 02/14/23 03/03/23 Rx billion cell capsule cholestyramine-aspartame 4 gram 4 g PO BID@1000,2200 PRN diarrhea 02/14/23 03/03/23 Rx oral powder for susp in a packet #10 ea (Prevalite) ondansetron 4 mg disintegrating 4 mg PO DAILY PRN nausea and 02/14/23 03/03/23 Rx tablet vomiting #10 tabs Additional Medication Comments Current Inpatient Medications Acetaminophen (Acetaminophen 325 Mg Tab) 650 mg PO Q4H PRN PRN Reason: Moderate Pain (Scale 4, 5, 6) Stop: 04/02/23 16:41 Last Admin: 03/09/23 02:43 Dose: 650 mg Al Hydrox/Mg Hydrox/Simethicone (Aluminum/Magnesium/Simeth (Maalox Max) 30 Ml Udc) 15 ml PO Q6H PRN PRN Reason: Indigestion Stop: 04/08/23 11:06 Last Admin: 03/11/23 16:49 Dose: 15 ml Albuterol (Albuterol 0.083% Nebu Soln 3 Ml Vial) 2.5 mg NEB Q6R PRN; Protocol PRN Reason: Shortness Of Breath Stop: 04/02/23 18:28 Calcium Citrate (Calcium Citrate 950 Mg Tab) 950 mg PO PC ALFREDA Stop: 04/09/23 08:59 Last Admin: 03/12/23 16:49 Dose: Not Given Enoxaparin Sodium (Enoxaparin Inj 40 Mg/0.4 Ml Syr) 40 mg SQ Q24H ALFREDA Stop: 04/08/23 14:59 Last Admin: 03/12/23 15:05 Dose: 40 mg Fluticasone/Vilanterol (Fluticasone/Vilanterol 100/25mcg 14 Puffs/Inhaler) 1 puffs INH DAILY [facility] Stop: 04/03/23 08:59 Last Admin: 03/12/23 09:39 Dose: 1 puffs Metronidazole (Flagyl) 500 mg in 100 mls @ 100 mls/hr IV Q8H [facility]; Protocol Stop: 03/14/23 08:14 Last Infusion: 03/12/23 18:00 Dose: Infused Cefepime HCl 2,000 mg/ Syringe 20 mls @ 5 mls/min IV Q12H [facility]; Protocol Stop: 03/14/23 21:59 Last Admin: 03/12/23 10:47 Dose: 5 mls/min Loperamide HCl (Loperamide Hcl 2 Mg Cap) 2 mg PO Q6H PRN PRN Reason: Diarrhea Stop: 04/10/23 21:50 Magnesium Oxide (Magnesium Oxide 400 Mg Tab) 400 mg PO BID [facility] Stop: 04/10/23 08:59 Last Admin: 03/12/23 09:46 Dose: 400 mg Metoclopramide HCl (Metoclopramide Hcl 5 Mg Tablet) 5 mg PO Q8 [facility] Stop: 03/13/23 21:59 Last Admin: 03/12/23 15:09 Dose: 5 mg Metoprolol Succinate (Metoprolol Succ 25mg Ext Rel Tab) 25 mg PO QAM [facility] Stop: 04/03/23 08:59 Last Admin: 03/12/23 09:45 Dose: 25 mg Montelukast Sodium (Montelukast Sodium 10 Mg Tablet) 10 mg PO HS [facility] Stop: 04/03/23 20:59 Last Admin: 03/11/23 19:39 Dose: 10 mg Nystatin (Nystatin Susp 500,000 U/5 Ml Udc) 10 ml PO TID [facility] Stop: 03/16/23 13:59 Last Admin: 03/12/23 13:59 Dose: Not Given Oxycodone/Acetaminophen (Oxycodone/Acetaminophen 5mg/325mg Tab) 1 tab PO Q4H PRN PRN Reason: Moderate Pain (Scale 4, 5, 6) Stop: 03/23/23 13:36 Last Admin: 03/10/23 08:48 Dose: 1 tab Oxycodone/Acetaminophen (Oxycodone/Acetaminophen 5mg/325mg Tab) 2 tab PO Q4H PRN PRN Reason: Severe Pain (Scale 7, 8, 9,10) Stop: 03/23/23 13:38 Last Admin: 03/12/23 17:53 Dose: 2 tab Pantoprazole Sodium (Pantoprazole 40 Mg Tab) 40 mg PO BID [facility]; Protocol Stop: 04/08/23 20:59 Last Admin: 03/12/23 09:46 Dose: 40 mg Potassium Chloride (Potassium Chloride Crtab 20 Meq Tabcr) 20 meq PO BID [facility] Stop: 04/09/23 20:59 Last Admin: 03/12/23 09:45 Dose: 20 meq Potassium Phosphate (Pot Phosphate Monobasic W/ Sod Tab) 2 tab PO QID [facility] Stop: 04/10/23 08:59 Last Admin: 03/12/23 16:48 Dose: Not Given Rosuvastatin Calcium (Rosuvastatin Calcium 20 Mg Tab) 20 mg PO HS [facility] Stop: 04/03/23 20:59 Last Admin: 03/11/23 19:39 Dose: 20 mg Simethicone (Simethicone 80 Mg Chew) 80 mg PO Q6H PRN PRN Reason: Flatulence Stop: 04/11/23 10:40 Last Admin: 03/12/23 12:45 Dose: 80 m Hospital Stay Data Consultations 03/03/23 16:44 Consult Gastroenterology Routine 03/03/23 16:45 Consult General Surgery Routine 03/04/23 08:52 Consult Radiology Routine Procedures Performed Operation Date: 03/08/23 09:55 Actual Procedures p Laparoscopic Cholecystectomy - Lili Alegre DO Diagnostic Imagining Performed 03/07/23 12:00 CT abd pelvis IV con only Routine 03/07/23 12:40 US liver Urgent 03/12/23 13:49 CT Abd and Pelvis [CT abd pelvis IV con only] Stat Chest X-Ray 03/03/23 17:16 XR chest 1V portable CLINICAL HISTORY: Cough, LONG TECHNIQUE: Single frontal radiograph of the chest was obtained. Comparison: Comparison is made to chest radiograph 01/25/2019 FINDINGS: No lines and tubes are seen. Calcified aortic knob is seen. Right lower lung atelectasis is seen. No evidence of pleural effusion or pneumothorax. IMPRESSION: No acute abnormalities and in particular no radiographic evidence of pneumonia. ACT 112: Negative or not required by law. Electronically signed by: Ramiro Russell M.D. 03/03/2023 5:53 PM Abdomen/Pelvis CT 03/07/23 12:00 CT SCAN OF THE ABDOMEN AND PELVIS WITH IV CONTRAST CLINICAL HISTORY: Follow-up diverticulitis. COMPARISON STUDY: Abdominal CT dated 02/10/2023. TECHNIQUE: Following the IV administration of 94 cc of Optiray 320, CT scan of the abdomen and pelvis is performed from the lung bases to the proximal femora. Images are reviewed in the axial, sagittal, and coronal planes. IV contrast was administered without complication. Note that the examination is suboptimal without enteric contrast. A dose lowering technique was utilized adhering to the principles of ALARA. CT DOSE: 1028.35 mGy.cm FINDINGS: Lung bases: The heart is top normal in size and without pericardial effusion. There are coronary artery calcifications. There are trace pleural effusions with dependent atelectasis. A small hiatal hernia is noted. Liver: The contrast-enhanced liver is normal in size, contour, and attenuation. There is no intrahepatic biliary ductal dilatation. The hepatic veins and portal veins are patent. Gallbladder: There is an 8 mm calcified gallstone within the cystic duct seen on axial image #104. The gallbladder is distended, with wall thickening and edema as well as mild surrounding inflammation. Findings are consistent with acute cholecystitis. Spleen: Normal in size and attenuation. Pancreas: Unremarkable. Adrenal glands: Unremarkable. Kidneys: The contrast enhanced kidneys are normal in size and without hydronephrosis. The kidneys enhance symmetrically. Simple and complex renal cysts measure up to 3.7 cm. Abdominal vasculature: The abdominal aorta is normal in course and caliber noting moderate atherosclerotic calcification. Bowel: There is moderate colonic diverticulosis. There is persistent wall thickening of the sigmoid colon at the site appears a characterize diverticulitis. Surrounding inflammation has improved. A multiloculated intramural abscess along the left wall of the rectosigmoid measures approximately 4 x 4 by 1.5 cm as seen on axial image #236. No bowel obstruction is seen. The appendix is well-visualized and normal. Peritoneum: There is no intraperitoneal free air or abdominal ascites. Lymphadenopathy: None. Pelvic viscera: There is a punctate focus of gas within the bladder lumen. The bladder is otherwise normal as imaged. The uterus is heterogeneous. No adnexal lesion is seen. Skeletal structures: The skeletal structures are osteopenic. A mild compression deformity of L4 is unchanged. Mild to moderate lumbosacral spondylosis is observed. No lytic or blastic lesions are seen. There is chronic deformity and postsurgical change seen in the right proximal femur. There is also chronic deformity right posterior acetabular roof. IMPRESSION: 1. Cholelithiasis with acute cholecystitis as above. Surgical assessment is advised. 2. Sigmoid diverticulitis has improved as compared to 02/10/2023. 3. A multiloculated intramural abscess of the sigmoid colon measures approximately 4 x 4 x 1.5 cm. See above. 4. No intraperitoneal free air is seen. 5. Trace pleural effusions. 6. Additional findings as above. ACT 112: Negative or not required by law. Electronically signed by: Juan Miguel Rodriguez M.D. 03/07/2023 10:07 AM Liver Ultrasound 03/07/23 12:40 US liver CLINICAL HISTORY: rule out acute cholecystitis TECHNIQUE: Multiple real-time sonographic images of the right upper quadrant were obtained. Comparison: Comparison is made to CT abdomen pelvis 02/25/2023 FINDINGS: The liver is diffusely homogenous with normal contour and echogenicity. No focal mass lesions are seen. No intrahepatic ductal dilatation is seen. Gallbladder is distended and the wall is thickened measuring 4.2 mm. Stones in the cystic duct are better seen on CT imaging. Gonzales's sign cannot be assessed as the patient received pain medication. The common duct measures 0.9 cm in diameter at the level of the hepatic artery. The visualized portions of the pancreas appear normal. Echogenic appearance of the right kidney is seen, there are multiple cysts measuring up to 3.1 x 2.8 x 3.5 cm. Trace perinephric fluid is seen. No ascites or free fluid is seen in Sotelo's pouch. IMPRESSION: 1. Thickened gallbladder wall is seen compatible with acute cholecystitis. Gonzales's sign cannot be assessed. 2. Echogenic kidneys compatible with medical renal disease. ACT 112: Negative or not required by law. Electronically signed by: Ramiro Russell M.D. 03/07/2023 6:54 PM Chest X-Ray 03/11/23 14:27 XR chest 1V portable HISTORY: cough COMPARISON: Chest 03/03/2023. FINDINGS: No pneumothorax. The cardiac silhouette is mildly enlarged. There are bibasilar linear densities which favor subsegmental atelectasis or scarring. Otherwise, no new focal lung consolidations to suggest a pneumonia. Mild interstitial thickening persists and is likely chronic. There is mild pulmonary vascular congestion without overt edema. A small right pleural effusion is new compared to the prior study. Prior cholecystectomy. IMPRESSION: 1. Cardiomegaly with mild pulmonary vascular congestion and a small right pleural effusion. 2. Bibasilar linear densities are nonspecific but favor subsegmental atelectasis/scarring. 3. Mild cardiomegaly. 4. Chronic interstitial thickening persists. ACT 112: Negative or not required by law. Electronically signed by: Sandip Canales M.D. 03/11/2023 3:02 PM KUB X-Ray 03/11/23 14:27 KUB CLINICAL HISTORY: Nausea and vomiting. COMPARISON STUDY: CT of the abdomen and pelvis March 07, 2023. FINDINGS: Cholecystectomy clips and proximal right femoral cannulated screws are incidentally noted. The bowel gas pattern is normal. Amount of stool is within normal limits. IMPRESSION: Unremarkable KUB. No evidence for a bowel obstruction. ACT 112: Negative or not required by law. Electronically signed by: Gene Hastings M.D. 03/11/2023 3:02 PM Abdomen/Pelvis CT 03/12/23 13:49 CT abd pelvis IV con only CLINICAL HISTORY: 12/16 abdominal pain TECHNIQUE: Helical axial images of the abdomen and pelvis were obtained and displayed. Automated dose lowering techniques and/or adjustment according to patient size were utilized for this exam. This exam was performed with intravenous contrast. CT DOSE: 1026.91 mGy.cm COMPARISON: Comparison is made to CT abdomen pelvis 03/07/2023 FINDINGS: Lower chest: Bibasilar atelectasis versus scarring is seen. There are small bilateral pleural effusions. Liver: Unremarkable. No focal lesions are seen. Gallbladder and biliary tree: Patient is status post cholecystectomy. Physiologic prominence of the biliary ducts is noted. Pancreas: Unremarkable, no focal lesions. Spleen: Unremarkable. Adrenals: Unremarkable. Kidneys and ureters: Renal cysts are seen. Bladder: Unremarkable. Reproductive organs: Unremarkable. Bowel: Interval enlargement of abscess adjacent to the sigmoid colon in this patient with diverticulitis, the abscess presently measures 26 x 47 mm compared to 15 x 42 mm. Wall thickening is again seen. The appendix is unremarkable. There is a small hiatal hernia. Lymph nodes Retroperitoneal: Unremarkable. Pelvic: Unremarkable. Mesenteric: Unremarkable. Peritoneum: Soft tissue stranding and a small amount of free fluid is in the gallbladder fossa. Soft tissue stranding is also seen in the region of the pelvis. Vessels: Atherosclerotic calcifications are seen. Abdominal wall: Unremarkable. Bones: Degenerative changes in the visualized spine. Right femoral neck hardware is seen. IMPRESSION: 1. Interval enlargement of intrarenal abscess of the sigmoid colon. No brinda pneumoperitoneum is seen however continued diverticulitis is noted. 2. Interval cholecystectomy. Soft tissue stranding and a small amount of free fluid is seen in the gallbladder fossa. Correlate with surgical history. 3. Additional findings as above. ACT 112: Negative or not required by law. Electronically signed by: Ramiro Russell M.D. 03/12/2023 5:03 PM Pending Results Patient Have Any Pending Studies at Discharge: No Discharge Instructions Given to Patient (Per Discharging Provider) Pt is a 77yoF with a PMhx significant for Asthma, COPD, CAD, HTN, Hyperlipidemia, osteoarthritis and GERD admitted with progressing diverticulitis with abscess and acute cholecystitis. Acute diverticulitis with abscess Acute cholecystitis Patient presented with abdominal pain for several days. Recently admitted from 02/10 to 02/14 with sigmoid diverticulitis; managed conservatively; finished course of antibiotics Presented to her PCP office on the day of this admission 03/[address] abdomen pelvis done outpatient showed diverticulitis with abscess in distal sigmoid colon measuring 3.2 x 2.0 x 3[address] abdomen and pelvis done on 03/07: -Cholelithiasis with acute cholecystitis present, sigmoid diverticulitis slightly improved. Multiloculated intramural abscess of 4 x 4 by 1.5 cm. Right upper quadrant ultrasound compatible with acute cholecystitis WBC has not been elevated at any point. General Surgery consult, appreciate recs -s/p laparoscopic cholecystectomy on 03/08. -No plans for IR intervention for abscess at that time as it was deemed intramural and could not be drained. -Recommended treating with oral antibiotics and advised repeat CT abd/pelvis in 1 week with follow up with general surgeon at that time, next steps to be d etermined. -Per discussion with General Surgery, next steps can include bowel resection if not improved or worsening Pt having persistent N/V and 8/10 abdominal pain- repeat CT abd/pelvis 03/13/23 obtained that noted increased size of abscess 2.6 x 4.7 cm. General Surgery contacted urgently- advising that per their read, abscess now able to be drained percutaneously, recommending transfer to a facility with urgent IR capabilities. Advising that other option would be colectomy. Discussed with pt and daughter at bedside, she would like to be transferred for possible IR drainage. Electrolyte Derangements Hypokalemia Hypophosphatemia- significant, phosphorus level was below 1 Hypomagnesemia Hypocalcemia -repleted as needed Cough Pt states she is having productive cough Chest xray with noted new small pleural effusions, pulm vasc congestion Cardiac silhouette also mildly enlarged. IV lasix 40mg given Continue to monitor Diarrhea Per pt stools have some form C diff canceled Started on Imodium HTN Chronic, stable Cont metoprolol succinate 25 mg QAM HLD Chronic, stable Cont fish oil, rosuvastatin Hx of asthma Continue Singulair and inhalers OA Chronic, stable GERD Chronic, stable cont ppi Total Time Total Time Spent Total Time Spent (In Minutes): > 30 minutes
[2023-03-12] MEDS: ROSUVASTATIN CALCIUM 20 MG TAB PO SCH (20:07)
[2023-03-12] MEDS: MONTELUKAST SODIUM 10 MG TABLET PO SCH (21:03)
== END 2023-03-13 01:37 | disposition short-term general hospital (02) | DRG 357 ==
LOC: ED 15:37 → SUATTDRO 16:42 → EDINP 16:42 → 2N 21:34

== ENCOUNTER 2023-03-22 14:09 | Inpatient (IN) ==
[2023-03-22 14:54] LABS: Basophils # (auto) 0.04 K/uL (0.00-0.20); Basophils % (auto) 0.6 %; Eosinophils # (auto) 0.14 K/uL (0.00-0.50); Hemoglobin 10.8 g/dl (12.0-16.0); Immature Granulocytes # (auto) 0.04 K/uL (0.01-0.20); Immature Granulocytes % (auto) 0.6 %; Lymphocytes # (auto) 1.78 K/uL (1.20-3.40); Lymphocytes % (auto) 25.1 %; Mean Corpuscular Hemoglobin 27.9 pg (25.0-34.0); Mean Corpuscular Hgb Conc 32.7 g/dL (32.0-36.0); Mean Corpuscular Volume 85.3 fL (80.0-100.0); Mean Platelet Volume 9.8 fL (9.4-12.4); Monocytes # (auto) 0.53 K/uL (0.11-0.59); Monocytes % (auto) 7.5 %; Neutrophils # (auto) 4.57 K/uL (1.40-6.50); Neutrophils % (auto) 64.2 %; Platelet Count 376 K/uL (130-400); RDW Coefficient of Variation 13.9 % (11.5-14.5); RDW Standard Deviation 43.2 fL (36.4-46.3); Red Blood Count 3.87 M/uL (4.20-5.40)
[2023-03-22 15:14] LABS: Albumin Level 3.1 gm/dl (3.4-5.0); BUN Creatinine Ratio 10.5 (10-20); Bilirubin Direct 0.1 mg/dl (0-0.2); Bilirubin,Total 0.5 mg/dl (0.2-1.0); Calcium 7.2 mg/dl (8.6-10.3); Creatinine Clr Calc Pharmacy 74.4 ml/min; Est GFR (African American) 104.4 ml/min; Potassium 2.8 mmol/L (3.5-5.1); Total Protein 6.2 gm/dl (6.0-8.3)
[2023-03-22 15:24] LABS: Magnesium 0.9 mg/dl (1.7-2.4)
[2023-03-22 15:51] LABS: INR 1.2 (0.9-1.1); Partial Thromboplastin Ratio 1.3; Partial Thromboplastin Time 37.3 Seconds (21.0-31.0)
--- NOTE | 2023-03-22 16:20 | Emergency Department Note ---
History of Present Illness General Chief complaint: Weakness Stated complaint: PAIN, WEAKNESS Time Seen by Provider: 03/22/23 14:14 History of Present Illness Provider complaint: Weakness abdominal pain Onset (ago): month(s) 1 77-year-old female presents emergency department for weakness and abdominal pain. Patient reports her symptoms been going on for the last month. Patient states she has been being treated with IV antibiotics for diverticular abscess but states she is not getting any better. She reports extreme nausea. She reports some vomiting. No hematemesis coffee-ground emesis or bilious vomiting. No diarrhea or hematochezia. No chest pain or difficulty breathing. Patient states she was seen by her PCP at [facility] and referred here because her magnesium and potassium level were low. Home Medications Medication Instructions Recorded Confirmed Type calcium acetate(phosphat bind) 667 667 mg PO HS ##0 11/12/10 03/22/23 History mg tablet multivitamin 1 tab PO DAILY ##0 11/12/10 03/22/23 History omega 1-vax-gra-fish oil 1,000 mg 1 cap PO DAILY ##0 11/12/10 03/22/23 History (120 mg-180 mg) capsule (Fish Oil) omeprazole 20 mg capsule,delayed 20 mg PO BID ##0 11/12/10 03/22/23 History release cholecalciferol (vitamin D3) 25 1,000 unit PO DAILY 01/25/19 03/22/23 History mcg (1,000 unit) capsule (Vitamin D3) metoprolol succinate 25 mg 25 mg PO QAM 01/25/19 03/22/23 History tablet,extended release 24 hr montelukast 10 mg tablet 10 mg PO HS 01/25/19 03/22/23 History ascorbic acid (vitamin C) 250 mg 250 mg PO QAM 06/01/19 03/22/23 History chewable tablet (Vitamin C) fluticasone propionate 50 1 spray intranasal DAILY 06/01/19 03/22/23 History mcg/actuation nasal spray,suspension (Flonase Allergy Relief) glucosamine-chondroitin 250 mg-200 1 tab PO QAM 06/01/19 03/22/23 History mg tablet (Osteo Bi-Flex) denosumab 60 mg/mL subcutaneous 60 mg subcut .[id number] 02/10/23 03/22/23 History syringe (Prolia) fluticasone fur. 200 mcg-umeclid 1 inh inhalation PM 02/10/23 03/22/23 History 62.5 mcg-vilant 25 mcg inhalat.powder (Trelegy Ellipta) rosuvastatin 20 mg tablet 20 mg PO HS 02/10/23 03/22/23 History Lactobacillus acidophilus 1 1,000 mmu cells PO DAILY #7 caps 02/14/23 03/22/23 Rx billion cell capsule cholestyramine-aspartame 4 gram 4 g PO BID@1000,2200 PRN diarrhea 02/14/23 03/22/23 Rx oral powder for susp in a packet #10 ea (Prevalite) ondansetron 4 mg disintegrating 4 mg PO DAILY PRN nausea and 02/14/23 03/22/23 Rx tablet vomiting #10 tabs Allergies Allergy/AdvReac Type Severity Reaction Status Date / Time amoxicillin Allergy Severe Itching Unverified 03/22/23 16:51 aspirin Allergy Mild wheeze Verified 03/22/23 16:51 Past Med/Surg History Medical History Diverticulitis Degenerative arthritis of knee, bilateral Trochanteric bursitis, right hip Osteoarthritis GERD (gastroesophageal reflux disease) Hyperlipidemia Hypertension Surgical History Hx laparoscopic cholecystectomy (03/08/23) Laparoscopic Cholecystectomy - Lili Alegre DO Hx of colonoscopy History of open reduction and internal fixation (ORIF) procedure RIGHT HIP Hx of sinus surgery Family History Other Family history non-contributory Social History Smoking Status: Never smoker Tobacco Type: Cigarettes Second Hand Exposure: No; Do You Dip or Chew Tobacco: No; Hx Alcohol Use: Yes Alcohol type: wine Hx Substance Use: No Preferred Language: Croatian Communication Ability: Effective Ophthalmic Tech Required: No Beliefs That Will Affect Care: None Current Living Situation: Spouse Current Living Situation Comment: lives at home w Feels Safe at Home: Yes Assistive Devices: Nebulizer Physical Exam Vital Signs Vital Signs - 24 hr 03/22/23 14:24 03/22/23 14:34 03/22/23 15:36 Temperature 36.9 C Temperature Source Oral Pulse Rate 99 H 98 H Pulse Rate [Apical] Pulse Rhythm Regular Pulse Strength Normal Respiratory Rate 18 Respiratory Effort / Characteristics Non-Labored Respiratory Depth Normal Respiratory Pattern Regular Blood Pressure 146/82 H Blood Pressure [Left Arm] Blood Pressure Mean 103 Blood Pressure Mean [Left Arm] Blood Pressure Position Sitting Blood Pressure Position [Left Arm] Pulse Oximetry 98 96 Oxygen Delivery Method Room Air Room Air Sepsis Recent Fever Within 48 Hours No Sepsis New/Unexplained Change in Mental Status No Sepsis Action Taken by Nursing No Action Required 03/22/23 15:36 03/22/23 15:36 03/22/23 17:34 Temperature Temperature Source Pulse Rate 92 H Pulse Rate [Apical] 92 H 96 H Pulse Rhythm Pulse Strength Respiratory Rate 18 18 18 Respiratory Effort / Characteristics Non-Labored Spontaneous Respiratory Depth Normal Respiratory Pattern Regular Blood Pressure Blood Pressure [Left Arm] 132/73 141/73 H Blood Pressure Mean Blood Pressure Mean [Left Arm] 92 95 Blood Pressure Position Blood Pressure Position [Left Arm] Lying Pulse Oximetry 98 98 95 Oxygen Delivery Method Room Air Room Air Room Air Sepsis Recent Fever Within 48 Hours Sepsis New/Unexplained Change in Mental Status Sepsis Action Taken by Nursing Physical Exam GENERAL: She is oriented to person, place, and time. She appears well-developed and well-nourished. She does not appear distressed. HENT: Exam performed. -Head: Normocephalic and atraumatic. -Right Ear: External ear normal. No mastoid erythema -Left Ear: External ear normal. No mastoid erythema -Mouth/Throat: The oropharynx is clear and moist. No trismus in the jaw. No dental abscesses or uvula swelling. No oropharyngeal exudate or tonsillar abscesses. EYES: Conjunctivae and EOM are normal.Right eye exhibits no discharge. Left eye exhibits no discharge. No scleral icterus. NECK: Normal range of motion. Neck supple. No JVD present. No tracheal deviation and normal range of motion present. CV: Normal rate, regular rhythm, normal heart sounds and intact distal pulses. There is no peripheral edema. Palpable radial pulses bue. PULM/CHEST: Effort normal and breath sounds normal. No respiratory distress. No stridor. She has no wheezes. She has no rales. -Chest Wall: She exhibits no tenderness. ABD: The abdomen is soft. There is diffuse tenderness to palpation. There is no rebound, no guarding. MUSC/SKEL: Normal range of motion. There is no peripheral edema, tenderness or deformity. NEURO: Motor and sensation grossly intact. SKIN: Skin is warm and dry. She is not diaphoretic. PSYCH: She has a normal mood and affect. Behavior is normal. Judgment and thought content normal. Course Course 1414: The patient was evaluated in room C6. A complete history and physical exam was performed Cardiac monitoring: An order was placed for continuous cardiac monitoring. The monitor shows a rate of 90 with sinus rhythm interpreted by me 1530: Vital signs stable. Labs show a magnesium of 0.9 and potassium of 2.8. Patient does have prolonged QTc on EKG. Magnesium repletion will be started in the emergency department once the magnesium repletion is started potassium repletion will be started. CT of the abdomen pelvis is pending. 1850: Vital signs stable. Electrolyte repletion began in the emergency department. CT of the abdomen pelvis shows no improving sign of the abscess. Given the [facility] general surgery and IR did not want to perform any procedure on the patient's diverticular abscess and just wants to IV antibiotics, it was thought that the patient could stay at this facility and receive electrolyte repletion and IV fluids. Discussed case with [facility] admitting team Dr. Arriaga who states she will evaluate the patient for admission. Administered Medications Sodium Chloride (Nss) 1,000 mls @ 125 mls/hr IV .Q8H ALFREDA Stop: 04/21/23 18:29 Last Admin: 03/22/23 19:15 Dose: 125 mls/hr Documented By: JOSE Potassium Chloride 40 meq/Magnesium Sulfate 2 gm/ Sodium Chloride 1,024 mls @ 125 mls/hr IV .Q8H12M ALFREDA Stop: 03/23/23 03:11 Last Admin: 03/22/23 21:18 Dose: 125 mls/hr Documented By: SCOTT Discontinued Medications Magnesium Sulfate/Dextrose (Magnesium Sulfate / D5w) 1 gm in 100 mls @ 100 mls/hr IV Q1H ALFREDA Stop: 03/22/23 17:23 Last Infusion: 03/22/23 20:13 Dose: Infused Documented By: Admin: 03/22/23 18:39 Dose: 100 mls/hr Documented By: Infusion: 03/22/23 18:39 Dose: Infused Documented By: Admin: 03/22/23 17:30 Dose: 100 mls/hr Documented By: SATYA Ertapenem 1,000 mg/ Syringe 10 mls @ 2 mls/min IV 2000 ALFREDA Stop: 03/22/23 20:04 Last Admin: 03/22/23 20:52 Dose: 2 mls/min Documented By: SCOTT Ioversol (Optiray 320 100ml) 93 ml IV ONCE ONE Stop: 03/22/23 16:35 Last Admin: 03/22/23 16:43 Dose: 93 ml Documented By: MAGEN Potassium Chloride (Potassium Chloride Crtab 20 Meq Tabcr) 40 meq PO NOW STA Stop: 03/22/23 18:48 Last Admin: 03/22/23 19:16 Dose: 40 meq Documented By: JOSE Medical Decision Making Medical Records Attestation: I reviewed the patient's medical records. External medical records from [facility] were retrieved by [employer] coffee shop manager reviewed. The patient was admitted to [facility] from February 10 February 14 for a diverticular abscess was treated with vancomycin cefepime and metronidazole. The patient was discharged on cefdinir and metronidazole. Patient went to her PCP on March 03, 2023 for abdominal pain and a CT of the abdomen pelvis was performed which showed diverticulitis of the sigmoid colon with an abscess abutting the left aspect of the distal sigmoid colon measuring 3.2 x 2.0 x 3.4 cm. The patient was sent to the emergency department [facility] emergency department. The CT also showed that the patient had a nonspecific gallbladder wall thickening. CT of the abdomen pelvis was performed on March 07, 2023 which showed an 8 mm calcified gallstone within the cystic duct that distended gallbladder wall thickening with edema and surrounding inflammation. The patient had a cholecystectomy performed on March 08, 2023. On March 12, 2023 the patient had worsening nausea and vomiting and abdominal pain. A repeat CT scan of the abdomen showed an increase in diverticular abscess size to 2.6 x 4.7 cm. General surgery was contacted at [facility] emergency department and they thought that the abscess should be drained by IR, previously they thought it was too small to be drained, and the patient was transferred to [facility] for IR evaluation. When the patient arrived to [facility], IR stated they could not drain the abscess. General surgery was consulted and recommended no acute intervention. Infectious disease was consulted and the patient was started on ertapenem through a PICC line. Laboratory Data Attestation: I reviewed the patient's lab results. 03/22/23 14:30 03/22/23 14:30 Lab Results 03/22/23 03/22/23 Range/Units 14:30 15:32 WBC 7.10 (4.8-10.8) K/ul RBC 3.87 L (4.20-5.40) M/uL Hgb 10.8 L (12.0-16.0) g/dl Hct 33.0 L (37.0-47.0) % MCV 85.3 (80.0-100.0) fL MCH 27.9 (25.0-34.0) pg MCHC 32.7 (32.0-36.0) g/dL RDW Std Deviation 43.2 (36.4-46.3) fL RDW Coeff of Edgard 13.9 (11.5-14.5) % Plt Count 376 (130-400) K/uL MPV 9.8 (9.4-12.4) fL Immature Gran % (Auto) 0.6 % Neut % (Auto) 64.2 % Lymph % (Auto) 25.1 % Martin % (Auto) 7.5 % Eos % (Auto) 2.0 % Baso % (Auto) 0.6 % Neut # (Auto) 4.57 (1.40-6.50) K/uL Lymph # (Auto) 1.78 (1.20-3.40) K/uL Martin # (Auto) 0.53 (0.11-0.59) K/uL Eos # (Auto) 0.14 (0.00-0.50) K/uL Baso # (Auto) 0.04 (0.00-0.20) K/uL Immature Gran # (Auto) 0.04 (0.01-0.20) K/uL PT 13.0 H (9.0-12.0) Seconds INR 1.2 H (0.9-1.1) APTT 37.3 H (21.0-31.0) Seconds PTT Ratio 1.3 Sodium 140 (136-145) mmol/L Potassium 2.8 L (3.5-5.1) mmol/L Chloride 102 (98-107) mmol/L Carbon Dioxide 27 (21-32) mmol/L Anion Gap 11 (3-11) BUN 6 (6-23) mg/dl Creatinine 0.57 L (0.6-1.2) mg/dl Est Cr Clr Drug Dosing 74.4 ml/min Est GFR ( Amer) 104.4 ml/min Est GFR (Non-Af Amer) 90.0 ml/min BUN/Creatinine Ratio 10.5 (10-20) Glucose 82 (70-99(Fasting)) mg/dl Lactate 0.8 (0.4-2.0) mmol/L Calcium 7.2 L (8.6-10.3) mg/dl Magnesium 0.9 L* (1.7-2.4) mg/dl Total Bilirubin 0.5 (0.2-1.0) mg/dl Direct Bilirubin 0.1 (0-0.2) mg/dl AST 39 (13-39) U/L ALT 19 (7-52) U/L Alkaline Phosphatase 71 (34-104) U/L Total Protein 6.2 (6.0-8.3) gm/dl Albumin 3.1 L (3.4-5.0) gm/dl Lipase 30 (11-82) U/L Procalcitonin 21.06 H (0-0.5) ng/ml Imaging Data Radiologist's Impression: Abdomen/Pelvis CT 03/22/23 14:[address] WITH IV CONTRAST CT DOSE: 949.27 mGy.cm HISTORY: Acute generalized abdominal pain diverticulitis and abdscess TECHNIQUE: Multiaxial CT images of the abdomen and pelvis were performed following the IV administration of 93 cc of Optiray, A dose lowering technique was utilized adhering to the principles of ALARA. COMPARISON STUDY: CT 03/12/2023 FINDINGS: Cardiomegaly. Mild bibasilar atelectasis. Unremarkable spleen with indeterminate subcentimeter hypodensity on image 93 series 3 which is too small to characterize. Mildly atrophic pancreas. Unremarkable adrenal glands. Right renal cysts measure up to 2 cm. Renal lobulation versus a lesion of the interpolar right kidney measuring 12 mm on image 106. No hydronephrosis. Partial distention of the urinary bladder. Heterogeneous uterus with probable fundal fibroid, 1.3 cm. Atherosclerosis of the aorta. No lymphadenopathy. Prior laparoscopic cholecystectomy with decreased stranding within the renetta hepatis. Tiny hiatal hernia. No bowel obstruction. Colonic diverticulosis. There is a multiloculated abscess involving the rectosigmoid junction. A component on image 246 measures 3.2 x 3.2 cm, previously 2.6 x 4.7 cm. A component on image 266 anterior to the rectum measures 2.4 x 4.0 cm, previously 5.6 cm. A few foci of extraluminal air again noted adjacent to the rectosigmoid. Unremarkable soft tissues. Postoperative changes of the right hip. IMPRESSION: 1. Improving findings of acute sigmoid diverticulitis with multiloculated abscess adjacent to the rectosigmoid, mildly decreased in size compared to the 03/12/2023 study. 2. Postoperative changes of recent laparoscopic cholecystectomy. 3. No bowel obstruction. 4. Bilateral renal cysts with indeterminate 1.2 cm right renal lesion. Correlation with follow-up renal ultrasound recommended. 5. Additional findings as above. ACT 112: Negative or not required by law. The above report was generated using voice recognition software. It may contain grammatical, syntax or spelling errors. Electronically signed by: Anish Meier M.D. 03/22/2023 5:03 PM ECG Data Attestation: I personally reviewed and interpreted this ECG as follows: Indication: + weakness Rate (beats per minute): 98 Rhythm: + normal sinus ECG Intervals/blocks: + Normal QRS, + Prolonged QT and + Normal MN ECG ST segments: + Normal ST segments [facility] Narrative 1414: The patient was evaluated in room C6. A complete history and physical exam was performed Cardiac monitoring: An order was placed for continuous cardiac monitoring. The monitor shows a rate of 90 with sinus rhythm interpreted by me 1530: Vital signs stable. Labs show a magnesium of 0.9 and potassium of 2.8. Patient does have prolonged QTc on EKG. Magnesium repletion will be started in the emergency department once the magnesium repletion is started potassium repletion will be started. CT of the abdomen pelvis is pending. 1850: Vital signs stable. Electrolyte repletion began in the emergency department. CT of the abdomen pelvis shows no improving sign of the abscess. Given the [facility] general surgery and IR did not want to perform any procedure on the patient's diverticular abscess and just wants to IV antibiotics, it was thought that the patient could stay at this facility and receive electrolyte repletion and IV fluids. Discussed case with [facility] admitting team Dr. Arriaga who states she will evaluate the patient for admission. Impression & Plan Hypomagnesemia, Colonic diverticular abscess, Acute hypokalemia Discharge Plan Visit Data Chief Complaint: Weakness Stated Complaint: PAIN, WEAKNESS ED Provider: Caden Quiroga Discharge Problem: Hypomagnesemia, Colonic diverticular abscess, Acute hypokalemia Patient Disposition: Admitted As Inpatient Discharge Instructions Interventions: ED Discharge Assessment Last Done: 03/22/23 21:24
[2023-03-22] MEDS ORDERED: OPTIRAY 320 100ml IV ONE (16:34)
--- NOTE | 2023-03-22 17:04 | CT Scan Report ---
ABDOMEN AND PELVIS CT WITH IV CONTRAST CT DOSE: 949.27 mGy.cm HISTORY: Acute generalized abdominal pain diverticulitis and abdscess TECHNIQUE: Multiaxial CT images of the abdomen and pelvis were performed following the IV administrat ion of 93 cc of Optiray, A dose lowering technique was utilized adhering to the principles of ALARA. COMPARISON STUDY: CT 03/12/2023 FINDINGS: Cardiomegaly. Mild bibasilar atelectasis. Unremarkable spleen with indeterminate subcentime ter hypodensity on image 93 series 3 which is too small to characterize. Mildly atrophic pancreas. Un remarkable adrenal glands. Right renal cysts measure up to 2 cm. Renal lobulation versus a lesion of the interpolar right kidney measuring 12 mm on image 106. No hydronephrosis. Partial distention of th e urinary bladder. Heterogeneous uterus with probable fundal fibroid, 1.3 cm. Atherosclerosis of the aorta. No lymphadenopathy. Prior laparoscopic cholecystectomy with decreased stranding within the por ta hepatis. Tiny hiatal hernia. No bowel obstruction. Colonic diverticulosis. There is a multiloculated abscess i nvolving the rectosigmoid junction. A component on image 246 measures 3.2 x 3.2 cm, previously 2.6 x 4.7 cm. A component on image 266 anterior to the rectum measures 2.4 x 4.0 cm, previously 5.6 cm. A f ew foci of extraluminal air again noted adjacent to the rectosigmoid. Unremarkable soft tissues. Post operative changes of the right hip. IMPRESSION: 1. Improving findings of acute sigmoid diverticulitis with multiloculated abscess adjacent to the rec tosigmoid, mildly decreased in size compared to the 03/12/2023 study. 2. Postoperative changes of recent laparoscopic cholecystectomy. 3. No bowel obstruction. 4. Bilateral renal cysts with indeterminate 1.2 cm right renal lesion. Correlation with follow-up simeon al ultrasound recommended. 5. Additional findings as above. ACT 112: Negative or not required by law. The above report was generated using voice recognition software. It may contain grammatical, syntax o r spelling errors. Electronically signed by: Anish Meier M.D. 03/22/2023 5:03 PM
[2023-03-22] MEDS: MAGNESIUM SULFATE / D5W 1 GM/100 ML BAG IV SCH ×2 (17:30→18:39)
[2023-03-22] MEDS ORDERED: POTASSIUM CHLORIDE CRTAB 20 MEQ TABCR PO STA (18:47)
--- NOTE | 2023-03-22 18:54 | History & Physical Report ---
Date of Service March 22, 2023 Assessment & Plan (1) Colonic diverticular abscess: Plan: Appears to be resolving. Cont ertapenem. Consult ID while she is here in lieu of planned outpatient followup. (2) Nausea and vomiting: Plan: unclear etiology, cont supportive care and electrolyte replacement as needed. She has not required antiemetic since arrival. Phenergan PRN. (3) Hypomagnesemia: Plan: 2.2 vomiting and diarrhea. Replace and repeat in am. (4) Acute hypokalemia: Plan: 2/2/ vomiting and poor PO intake. Replete and repeat in am. (5) Hyperlipidemia: Plan: chronic, stable. Cont rosuvastatin per home regimen. (6) Chronic sinusitis: Plan: chronic, noncompliant with her typical home regimen 2/2 hospitalizations. Since she feels her mucous/post nasal drip is contributing to her nausea and vomiting issues will restart this now. Lovenox Full Dispo-to telemetry. Replete lytes, monitor for clinical improvement and touch base with [facility] ID regarding abx. Cont supportive care as needed. PT/OT I spent a total [id number] coordinating, documenting, and providing care for this patient excluding time spent in the performance of separately billed services Maira Arriaga DO [facility] Hospitalist History of Present Illness Chief Complaint: weakness Primary Care Provider: Manoj Weber DO 77 yo F presents with weakness and abdominal pain. She continues on IV ertapenem for treatment of a diverticular abscess but feels she is not getting better. She reports extreme nausea and some vomiting. She was referred to the ER with her outpatient magnesium and potassium levels being low. In the ER she has a heart rate in the 90s but is otherwise hemodynamically stable and afebrile oxygenating well on room air. In recent weeks she would been admitted to [facility] February 10 through the night for and had diverticular abscess was treated with vancomycin, cefepime and metronidazole. She was discharged on cefdinir and metronidazole and followed up with PCP on 03/03 for abdominal pain. A CT of the abdomen pelvis revealed diverticulitis of the sigmoid colon with an abscess abutting the left aspect of the distal sigmoid colon measuring 3.2 x 2.0 x 3.4 cm. The patient was sent to the emergency room at [facility]. CT also revealed nonspecific gallbladder wall thickening. She was admitted and had a cholecystectomy on 03/08. On March 12 she had worsening nausea vomiting and abdominal pain and a repeat CT of the abdomen revealed an increase in diverticular abscess size to 2.6 x 4.7 cm. General surgery was consulted and she was sent to [facility] for IR drainage. When she arrived there no acute intervention was recommended and infectious disease was consulted and she was started on ertapenem through PICC line. Specifically while at [facility], IR drainage was not recommended as the abscess was deemed unsuitable due to its intramural location. General surgery was consulted and recommended no acute intervention. A colonoscopy in 6 weeks was recommended w follow-up for general surgery with possible elective surgery down the road. As noted above infectious disease was consulted and recommended ertapenem for at least 21 days with a stop date TBD. Followup with [facility] ID was scheduled for two weeks. Will plan to consult them this admission for additional guidance. She reports early satiety, poor appetite x 1 month+ BMs have been loose at least 5 episodes per day x 5 days Notes a history of diarrhea with the diverticulitis, also. Notes vomiting and diarrhea intermittently from the diverticular disease. It doesn't seem to be a reaction to the ertapenem which she states was started right at hospital discharge on 03/17. she denies any alcohol use reports eating soup, fruit like bananas/peaches, yogurt, pudding, jello reports a dull ache below her umbilicus, doesn't know when it started no UTI symptoms she feels like mucous partly causing her vomiting reports chronic sinus congestion has not been using flonase, mucinex, nasal saline, and singulair because she is reportedly overwhelmed with her medical issues and caring for her . Allergies Allergy/AdvReac Type Severity Reaction Status Date / Time amoxicillin Allergy Severe Itching Unverified 03/22/23 16:51 aspirin Allergy Mild wheeze Verified 03/22/23 16:51 Home Medications Medication Instructions Recorded Confirmed Type multivitamin 1 tab PO DAILY ##0 11/12/10 03/22/23 History omega 0-rix-ezt-fish oil 1,000 mg 1 cap PO DAILY ##0 11/12/10 03/22/23 History (120 mg-180 mg) capsule (Fish Oil) omeprazole 20 mg capsule,delayed 20 mg PO BID ##0 11/12/10 03/22/23 History release cholecalciferol (vitamin D3) 25 1,000 unit PO DAILY 01/25/19 03/22/23 History mcg (1,000 unit) capsule (Vitamin D3) metoprolol succinate 25 mg 25 mg PO QAM 01/25/19 03/22/23 History tablet,extended release 24 hr montelukast 10 mg tablet 10 mg PO HS 01/25/19 03/22/23 History ascorbic acid (vitamin C) 250 mg 250 mg PO QAM 06/01/19 03/22/23 History chewable tablet (Vitamin C) fluticasone propionate 50 1 spray intranasal DAILY 06/01/19 03/22/23 History mcg/actuation nasal spray,suspension (Flonase Allergy Relief) glucosamine-chondroitin 250 mg-200 1 tab PO QAM 06/01/19 03/22/23 History mg tablet (Osteo Bi-Flex) denosumab 60 mg/mL subcutaneous 60 mg subcut .[id number] 02/10/23 03/22/23 History syringe (Prolia) fluticasone fur. 200 mcg-umeclid 1 inh inhalation PM 02/10/23 03/22/23 History 62.5 mcg-vilant 25 mcg inhalat.powder (Trelegy Ellipta) rosuvastatin 20 mg tablet 20 mg PO HS 02/10/23 03/22/23 History Lactobacillus acidophilus 1 1,000 mmu cells PO DAILY #7 caps 02/14/23 03/22/23 Rx billion cell capsule cholestyramine-aspartame 4 gram 4 g PO BID@1000,2200 PRN diarrhea 02/14/23 03/22/23 Rx oral powder for susp in a packet #10 ea (Prevalite) ondansetron 4 mg disintegrating 4 mg PO DAILY PRN nausea and 02/14/23 03/22/23 Rx tablet vomiting #10 tabs Past Med/Surg History Medical History (Updated 03/22/23 @ 22:41 by Maira Arriaga DO) Osteoporosis COPD (chronic obstructive pulmonary disease) Chronic sinusitis Asthma Diverticulitis Degenerative arthritis of knee, bilateral Trochanteric bursitis, right hip Osteoarthritis GERD (gastroesophageal reflux disease) Hyperlipidemia Hypertension Surgical History Hx laparoscopic cholecystectomy (03/08/23) Laparoscopic Cholecystectomy - Lili Alegre DO Hx of colonoscopy History of open reduction and internal fixation (ORIF) procedure RIGHT HIP Hx of sinus surgery Family History Other Family history non-contributory Social History Smoking Status: Never smoker Tobacco Type: Cigarettes Second Hand Exposure: No; Do You Dip or Chew Tobacco: No; Hx Alcohol Use: Yes Alcohol type: wine Hx Substance Use: No Preferred Language: Latvian Communication Ability: Effective Health Management Consultant Required: No Beliefs That Will Affect Care: None Current Living Situation: Spouse Current Living Situation Comment: lives at home w Feels Safe at Home: Yes Assistive Devices: Nebulizer Physical Exam Physical Exam: CONSTITUTIONAL: WNWD, vitals as above, generally well-appearing, NAD EYES: normal conjunctivae, no scleral icterus ENT: external ear and nose normal, MMM NECK: trachea midline RESPIRATORY: clear to auscultation bilaterally, no crackles, rales or wheezes, normal respiratory effort CARDIOVASCULAR: regular rate and rhythm, S1 and 2 heard without murmurs, gallops or rubs, no JVD, no peripheral edema CHEST: inspection of chest was normal GASTROINTESTINAL: soft, nontender, no guarding MUSCULOSKELETAL: strength 5/5 throughout, head is normocephalic and atraumatic SKIN: warm and dry NEUROLOGIC: CN 2-12 grossly intact, no sensory deficit, normal cognition, normal speech, no tremor PSYCHIATRIC: alert cooperative and oriented to person, place and time. Euthymic mood, makes good eye contact, language grossly intact, recent and remote memory grossly intact. Results & Data Results & Data Vital Signs (Past 12 Hours) Vital Signs Temp Pulse Pulse Resp BP BP Pulse Ox 03/22/23 17:34 96 H 18 141/73 H 95 03/22/23 15:36 92 H 18 98 03/22/23 15:36 92 H 18 132/73 98 03/22/23 15:36 96 03/22/23 14:34 98 H 03/22/23 14:24 36.9 C 99 H 18 146/82 H 98 O2 Del Method 03/22/23 17:34 Room Air 03/22/23 15:36 Room Air 03/22/23 15:36 Room Air 03/22/23 15:36 Room Air 03/22/23 14:34 03/22/23 14:24 Room Air Laboratory Results Short CBC 03/22/23 Range/Units 14:30 WBC 7.10 (4.8-10.8) K/ul Hgb 10.8 L (12.0-16.0) g/dl Hct 33.0 L (37.0-47.0) % Plt Count 376 (130-400) K/uL BMP 03/22/23 14:30 Sodium 140 Potassium 2.8 L Chloride 102 Carbon Dioxide 27 BUN 6 Creatinine 0.57 L Glucose 82 Calcium 7.2 L Liver Function 03/22/23 Range/Units 14:30 Total Bilirubin 0.5 (0.2-1.0) mg/dl Direct Bilirubin 0.1 (0-0.2) mg/dl AST 39 (13-39) U/L ALT 19 (7-52) U/L Alkaline Phosphatase 71 (34-104) U/L Albumin 3.1 L (3.4-5.0) gm/dl Diagnostic Findings Abdomen/Pelvis CT 03/22/23 14:[address] WITH IV CONTRAST CT DOSE: 949.27 mGy.cm HISTORY: Acute generalized abdominal pain diverticulitis and abdscess TECHNIQUE: Multiaxial CT images of the abdomen and pelvis were performed following the IV administration of 93 cc of Optiray, A dose lowering technique was utilized adhering to the principles of ALARA. COMPARISON STUDY: CT 03/12/2023 FINDINGS: Cardiomegaly. Mild bibasilar atelectasis. Unremarkable spleen with indeterminate subcentimeter hypodensity on image 93 series 3 which is too small to characterize. Mildly atrophic pancreas. Unremarkable adrenal glands. Right renal cysts measure up to 2 cm. Renal lobulation versus a lesion of the interpolar right kidney measuring 12 mm on image 106. No hydronephrosis. Partial distention of the urinary bladder. Heterogeneous uterus with probable fundal fibroid, 1.3 cm. Atherosclerosis of the aorta. No lymphadenopathy. Prior laparoscopic cholecystectomy with decreased stranding within the renetta hepatis. Tiny hiatal hernia. No bowel obstruction. Colonic diverticulosis. There is a multiloculated abscess involving the rectosigmoid junction. A component on image 246 measures 3.2 x 3.2 cm, previously 2.6 x 4.7 cm. A component on image 266 anterior to the rectum measures 2.4 x 4.0 cm, previously 5.6 cm. A few foci of extraluminal air again noted adjacent to the rectosigmoid. Unremarkable soft tissues. Postoperative changes of the right hip. IMPRESSION: 1. Improving findings of acute sigmoid diverticulitis with multiloculated abscess adjacent to the rectosigmoid, mildly decreased in size compared to the 03/12/2023 study. 2. Postoperative changes of recent laparoscopic cholecystectomy. 3. No bowel obstruction. 4. Bilateral renal cysts with indeterminate 1.2 cm right renal lesion. Correlation with follow-up renal ultrasound recommended. 5. Additional findings as above. ACT 112: Negative or not required by law. The above report was generated using voice recognition software. It may contain grammatical, syntax or spelling errors. Electronically signed by: Anish Meier M.D. 03/22/2023 5:03 PM Code Status & VTE Plan VTE Prophylaxis Plan VTE Prophylaxis will be ordered: Yes
[2023-03-22] MEDS ORDERED: SODIUM CHLORIDE 0.9% IV SCH (19:00)
[2023-03-22] MEDS ORDERED: POTASSIUM CHLORIDE IV SCH (19:00)
[2023-03-22] MEDS ORDERED: MAGNESIUM SULFATE IV SCH (19:00)
[2023-03-22] MEDS: SODIUM CHLORIDE 0.9% 1,000 ML IV SCH (19:15)
[2023-03-22] MEDS ORDERED: ERTAPENEM SODIUM 1,000 MG in SYRINGE 0 ML IV SCH (20:00)
[2023-03-22] MEDS ORDERED: NON-FORMULARY MEDICATION (Fluticasone-Umeclidin-Vilanter [Trelegy Ellipta] 200-62.5-25 mcg INH SCH (22:45)
[2023-03-22] MEDS: guaiFENesin 600 MG TABCR PO SCH (23:42)
[2023-03-22] MEDS: MONTELUKAST SODIUM 10 MG TABLET PO SCH (23:42)
[2023-03-22] MEDS: ROSUVASTATIN CALCIUM 20 MG TAB PO SCH (23:42)
[2023-03-22] MEDS: FLUTICASONE FUROATE 200MCG 14 PUFFS/INHALER INH SCH (23:43)
[2023-03-22] MEDS: UMECLIDINIUM/VILANTEROL 62.5/25MCG 7 PUFFS/INHALER INH SCH (23:43)
[2023-03-22] MEDS: PROMETHAZINE HCL 25 MG TAB PO PRN (23:49)
[2023-03-23] MEDS: SODIUM CHLORIDE 0.9% 1,000 ML IV SCH ×3 (04:24→18:22)
[2023-03-23 06:31] LABS: Hematocrit (blood only) 32.2 % (37.0-47.0); Hemoglobin 10.7 g/dl (12.0-16.0); Mean Corpuscular Hemoglobin 28.7 pg (25.0-34.0); Mean Corpuscular Hgb Conc 33.2 g/dL (32.0-36.0); Mean Corpuscular Volume 86.3 fL (80.0-100.0); Mean Platelet Volume 9.9 fL (9.4-12.4); Platelet Count 376 K/uL (130-400); RDW Coefficient of Variation 14.2 % (11.5-14.5); RDW Standard Deviation 44.7 fL (36.4-46.3); Red Blood Count 3.73 M/uL (4.20-5.40); White Blood Count 5.83 K/ul (4.8-10.8)
[2023-03-23 06:56] LABS: BUN Creatinine Ratio 7.5 (10-20); Calcium 6.8 mg/dl (8.6-10.3); Creatinine Clr Calc Pharmacy 80.5 ml/min; Est GFR (African American) 106.9 ml/min; Est GFR (Non-African American) 92.2 ml/min; Magnesium 2.2 mg/dl (1.7-2.4); Phosphorus 1.3 mg/dl (2.5-4.9); Potassium 3.8 mmol/L (3.5-5.1)
[2023-03-23] MEDS: ENOXAPARIN INJ 40 MG/0.4 ML SYR SQ SCH (08:32)
[2023-03-23] MEDS: ONDANSETRON INJ 2 MG/ML 2 ML VIAL IV PRN ×2 (08:32→19:06)
[2023-03-23] MEDS: PANTOprazole 40 MG TAB PO SCH ×2 (08:33→20:10)
[2023-03-23] MEDS: FLUTICASONE PROPIONATE NA SPR 16 GM BTL NAE SCH (08:33)
[2023-03-23] MEDS: guaiFENesin 600 MG TABCR PO SCH ×2 (08:33→20:10)
[2023-03-23] MEDS: METOPROLOL SUCC 25MG EXT REL TAB PO SCH (08:33)
[2023-03-23] MEDS ORDERED: POTASSIUM PHOS 3 MMOL/1 ML INFUSION IV STA (08:52)
[2023-03-23] MEDS ORDERED: POTASSIUM PHOSPHATE 21 MMOL in SODIUM CHLORIDE 0.9% 500 ML IV ONE (09:15)
--- NOTE | 2023-03-23 09:51 | Electrocardiogram Report ---
Test Reason : Blood Pressure : / mmHG Vent. Rate : 098 BPM Atrial Rate : 098 BPM P-R Int : 122 ms QRS Dur : 082 ms QT Int : 432 ms P-R-T Axes : 090 092 142 degrees QTc Int : 551 ms Suspect arm lead reversal, interpretation assumes no reversal Normal sinus rhythm Rightward axis Pulmonary disease pattern Septal infarct , age undetermined Prolonged QT When compared with ECG of 03-MAR-2023 17:24, Criteria for Septal infarct is now Present QT has lengthened Confirmed by Felice Kunz ([id number]) on 03/23/2023 9:51:31 AM Referred By: REFERRED SELF Confirmed By:Felice Kunz
--- NOTE | 2023-03-23 12:34 | Surgery Consultation ---
<Statement entered by Lili Alegre DO - 03/24/23 09:13> I have seen this patient this am. C/o recent mild nausea/vomiting with the administration of some meds. States she is also having a mucus issue which seems to contribute. Of note, she says she started having diarrhea after being started on the outpatient IV antibiotics which is when these symptoms arose. Monitor patient's symptoms as fluid and electrolytes are replenished to see if this helps. May consider Reglan trial. Will f/u with the medical team. I discussed this possibility with the patient and she is agreeable. Date of Consultation March 23, 2023 Assessment & Plan (1) Colonic diverticular abscess: Patient is a 77 yo female known to general surgery with a PMH of Diverticular abscess, GERD, HTN, HLD, that was admitted on 03/03/23 at [facility] with diverticular abscess, and acute cholecystitis. She was discharge on 03/12/23 and unfortunately returned to the ER 03/22/23 with complaints of nausea/vomiting, weakness, not feeling well, diarrhea, decreased appetite, low energy. Denies fevers and chi lls. Patient was found to be hypokalemic and low magnesium levels. Patient reports she was seen at [facility] on 03/14/23 and was given a PICC line, saw Infectious disease, discharged on antibiotics and was to have a follow up on the . Patient states she was told in [place] that her abscess was not drainable because of the location. Patient reports not having much abdominal pain at present. Is TTP in the middle lower quadrant, abdomen is soft non distended. VSS WBC 5.[address] scan reads IMPRESSION: 1. Improving findings of acute sigmoid diverticulitis with multiloculated abscess adjacent to the rectosigmoid, mildly decreased in size compared to the 03/12/2023 study. 2. Postoperative changes of recent laparoscopic cholecystectomy. 3. No bowel obstruction. 4. Bilateral renal cysts with indeterminate 1.2 cm right renal lesion. Correlation with follow-up renal ultrasound recommended. Recommend Continuing antibiotic via PICC per ID recommendations Replace electrolytes Further recommendations will be forthcoming Supervising Physician Co-Signing Physician Notes This case was discussed with the surgical PA History of Present Illness Reason for Consultation: persistent diverticular abscess, nausea/vomiting Requesting Physician: Dr. Jacobs Attending Physician: Lauro Jacobs MD History of Present Illness Patient is a 77 yo female known to general surgery with a PMH of Diverticular abscess, GERD, HTN, HLD, that was admitted on 03/03/23 at [facility] with diverticular abscess, and acute cholecystitis. She was discharge on 03/12/23 and unfortunately returned to the ER 03/22/23 with complaints of nausea/vomiting, weakness, not feeling well, diarrhea, decreased appetite, low energy. Denies fevers and chills. Patient reports she was seen at [facility] on 03/14/23 and was given a PICC line, saw Infectious disease, discharged on antibiotics and was to have a follow up on the . Patient states she was told in [place] that her abscess was not drainable because of the location. Allergies Allergy/AdvReac Type Severity Reaction Status Date / Time amoxicillin Allergy Severe Itching Unverified 03/22/23 16:51 aspirin Allergy Mild wheeze Verified 03/22/23 16:51 Home Medications Medication Instructions Recorded Confirmed Type multivitamin 1 tab PO DAILY ##0 11/12/10 03/22/23 History omega 0-zly-dhj-fish oil 1,000 mg 1 cap PO DAILY ##0 11/12/10 03/22/23 History (120 mg-180 mg) capsule (Fish Oil) omeprazole 20 mg capsule,delayed 20 mg PO BID ##0 11/12/10 03/22/23 History release cholecalciferol (vitamin D3) 25 1,000 unit PO DAILY 01/25/19 03/22/23 History mcg (1,000 unit) capsule (Vitamin D3) metoprolol succinate 25 mg 25 mg PO QAM 01/25/19 03/22/23 History tablet,extended release 24 hr montelukast 10 mg tablet 10 mg PO HS 01/25/19 03/22/23 History ascorbic acid (vitamin C) 250 mg 250 mg PO QAM 06/01/19 03/22/23 History chewable tablet (Vitamin C) fluticasone propionate 50 1 spray intranasal DAILY 06/01/19 03/22/23 History mcg/actuation nasal spray,suspension (Flonase Allergy Relief) glucosamine-chondroitin 250 mg-200 1 tab PO QAM 06/01/19 03/22/23 History mg tablet (Osteo Bi-Flex) denosumab 60 mg/mL subcutaneous 60 mg subcut .[id number] 02/10/23 03/22/23 History syringe (Prolia) fluticasone fur. 200 mcg-umeclid 1 inh inhalation PM 02/10/23 03/22/23 History 62.5 mcg-vilant 25 mcg inhalat.powder (Trelegy Ellipta) rosuvastatin 20 mg tablet 20 mg PO HS 02/10/23 03/22/23 History Lactobacillus acidophilus 1 1,000 mmu cells PO DAILY #7 caps 02/14/23 03/22/23 Rx billion cell capsule cholestyramine-aspartame 4 gram 4 g PO BID@1000,2200 PRN diarrhea 02/14/23 03/22/23 Rx oral powder for susp in a packet #10 ea (Prevalite) ondansetron 4 mg disintegrating 4 mg PO DAILY PRN nausea and 02/14/23 03/22/23 Rx tablet vomiting #10 tabs Patient History Medical History Osteoporosis COPD (chronic obstructive pulmonary disease) Chronic sinusitis Asthma Diverticulitis Degenerative arthritis of knee, bilateral Trochanteric bursitis, right hip Osteoarthritis GERD (gastroesophageal reflux disease) Hyperlipidemia Hypertension Surgical History Hx laparoscopic cholecystectomy (03/08/23) Laparoscopic Cholecystectomy - Lili Alegre DO Hx of colonoscopy History of open reduction and internal fixation (ORIF) procedure RIGHT HIP Hx of sinus surgery Family History Other Family history non-contributory Social History Smoking Status: Former smoker Tobacco Type: Cigarettes Second Hand Exposure: No; Do You Dip or Chew Tobacco: No; Tobacco Cessation Education Requested by Patient: No Hx Alcohol Use: Yes Alcohol type: wine Hx Substance Use: No Preferred Language: Micronesian Communication Ability: Effective Family Medicine Chair Required: No Beliefs That Will Affect Care: None Current Living Situation: Spouse Current Living Situation Comment: lives at home w Other Information That Helps Us Care for You: Yes Feels Safe at Home: Yes Safety Concerns: Feels Safe At This Time Assistive Devices: Glasses Review of Systems Constitutional: + fatigue and + weakness; no fever and n o chills Respiratory: no dyspnea Cardiovascular: no chest pain Gastrointestinal: + early satiety, + heartburn, + nausea, + vomiting and + diarrhea/loose stools Genitourinary: no problem reported Physical Exam Physical Exam: alert oriented Constitutional: cooperative and comfortable; no acute distress Respiratory: normal respiratory effort and able to speak in complete sentences; no respiratory distress Cardiovascular: Rate/Rhythm: regular rate Gastrointestinal (Abdomen): Inspection/Auscultation: + abdominal surgical incision (healing post operative port sites ); abdomen not distended Percussion/Palpation: + abdomen tender (TTP middle lower quadrant, mid epigastric pain ) and abdomen soft; no guarding and abdomen not rigid Results & Data Vital Signs (Past 12 Hours) Vital Signs Temp Pulse Pulse Resp BP Pulse Ox O2 Del Method 03/23/23 09:00 Room Air 03/23/23 07:34 98.4 F 84 16 119/75 94 Room Air 03/23/23 07:00 87 03/23/23 04:29 98.1 F 90 18 126/66 93 Room Air Diagnostic Findings [place], [place] [phone] CT Scan Report Patient: LEIGH TOBIAS Admit Date: 03/22/23 MR#: [id number] Address1: [address] [place] [address] Acct ID:[id number] Address2: Date: 1945 [facility] Zip: [place] [address] Age: 77 Location: ED Sex: F Room/Bed: Att Phy: Diagnosis: PAIN, WEAKNESS Gisel Phy: Manoj Weber DO Service Date: 03/22/23 [facility] Phy: Interpreting Phy: Anish Wang Phy: Ordering Phy: Caden Quiroga MD cc: ~ ABDOMEN AND PELVIS CT WITH IV CONTRAST CT DOSE: 949.27 mGy.cm HISTORY: Acute generalized abdominal pain diverticulitis and abdscess TECHNIQUE: Multiaxial CT images of the abdomen and pelvis were performed following the IV administration of 93 cc of Optiray, A dose lowering technique was utilized adhering to the principles of ALARA. COMPARISON STUDY: CT 03/12/2023 FINDINGS: Cardiomegaly. Mild bibasilar atelectasis. Unremarkable spleen with indeterminate subcentimeter hypodensity on image 93 series 3 which is too small to characterize. Mildly atrophic pancreas. Unremarkable adrenal glands. Right renal cysts measure up to 2 cm. Renal lobulation versus a lesion of the interpolar right kidney measuring 12 mm on image 106. No hydronephrosis. Partial distention of the urinary bladder. Heterogeneous uterus with probable fundal fibroid, 1.3 cm. Atherosclerosis of the aorta. No lymphadenopathy. Prior laparoscopic cholecystectomy with decreased stranding within the renetta hepatis. Tiny hiatal hernia. No bowel obstruction. Colonic diverticulosis. There is a multiloculated abscess involving the rectosigmoid junction. A component on image 246 measures 3.2 x 3.2 cm, previously 2.6 x 4.7 cm. A component on image 266 anterior to the rectum measures 2.4 x 4.0 cm, previously 5.6 cm. A few foci of extraluminal air again noted adjacent to the rectosigmoid. Unremarkable soft tissues. Postoperative changes of the right hip. IMPRESSION: 1. Improving findings of acute sigmoid diverticulitis with multiloculated abscess adjacent to the rectosigmoid, mildly decreased in size compared to the 03/12/2023 study. 2. Postoperative changes of recent laparoscopic cholecystectomy. 3. No bowel obstruction. 4. Bilateral renal cysts with indeterminate 1.2 cm right renal lesion. Correlation with follow-up renal ultrasound recommended. 5. Additional findings as above. ACT 112: Negative or not required by law. The above report was generated using voice recognition software. It may contain grammatical, syntax or spelling errors. Electronically signed by: Anish Meier M.D. 03/22/2023 5:03 PM Dictated: 03/22/231651 Transcribed: 03/22/231651 PG Care Time/CCT Total # of Minutes Spent Total Time Spent with Patient: Total time spent is greater than 50% in coordination of care (as documented) at patient's floor/unit and/or counseling patient: Coding Level of Care Code 59265 IN/OBS CONSULT LVL 2,35M Diagnoses Colonic diverticular abscess K57.20
--- NOTE | 2023-03-23 13:49 | Infectious Disease Consult ---
Date of Service March 23, 2023 Telehealth Information I performed this visit using a real-time telehealth connection between my location and the patients location ([facility]). After connecting through interactive tele-video, patient was identified by name and date of and/or wristband check.Patient (or authorized healthcare service representative) was informed that this was a telemedicine visit and it was being conducted confidentially over secure lines. My office door was closed and no one else was present in the room with me.Patient (or authorized healthcare service representative) provided consent to proceed with the visit, expressed an understanding of privacy and security of the telemedicine visit, and gave permission to have a hospital service representative in the room in order to assist with the visit and to conduct portions of the visit, as needed. I informed the patient (or authorized healthcare service representative) that I reviewed their record and presented the opportunity for them to ask any questions regarding the visit today. The patient agreed to participate. Assessment & Plan (1) Colonic diverticular abscess: Plan: Assessment Known sigmoid diverticulitis w/ multiloculated abscess mildly decreasing in size Hx of allergy to amoxicillin Recommendations: - Continue ertapenem 1 gm iv qd at least till repeat CT A/P w/ contrast to reevaluate the abscess: improving w/ mildly decreased size compared to 03/12/23 - Repeat CT A/P w/ contrast w/in 3-4 weeks from today - Weekly CBC w/ diff and CMP while on abx therapy - Advised to take probiotic while on abx therapy - She is already scheduled to follow up w/ ID at the end of this month - She is scheduled for colonoscopy in June w/ general surgery: if the abscesses do not resolve, she may need surgical intervention sooner than later - ID signing off More than 50% of [id number] visit was spent counseling and coordinating care pertaining to the patient's infection diagnosis, additional work-up, and treatment option(s) as well as potential adverse events of the treatment. History of Present Illness History of Present Illness This 77 y/o female (Ro) w/ hx of known diverticular abscess (02/10/23) presented to [facility] on 03/22/23 for generalized weakness and abd pain w/ vomiting. She was recently diagnosed w/ diverticular abscess in early February, given vancomycin iv, cefepime, and metronidazole, and discharged on cefdinir and metronidazole. But repeat CT done at the end of February showed diverticulitis in sigmoid w/ abscess abutting distal colon, 3.2 x 2 x 3.4 cm, w/ nonspecific GB wall thickening. She was admitted and had cholecystectomy on 03/08/23. She continues to suffer from the diverticular abscess and was started on ertapenem 03/15/23 via PICC w/ plan to determine final abx duration w/ repeat CT in 2 weeks (per Dr. Oates, ID). The abscess was presumed to be in intramural location, not amenable to IR drain. General surgery did not suggest any acute intervention but colonoscopy in 6 weeks for elective surgery down the road. On admission, no fever or leukocytosis was noted. Repeat CT on admissions showed a multiloculated abscess involving the rectosigmoid junction. A component on image 246 measures 3.2 x 3.2 cm, previously 2.6 x 4.7 cm. A component on image 266 anterior to the rectum measures 2.4 x 4.0 cm, previously 5.6 cm. A few foci of extraluminal air again noted adjacent to the rectosigmoid. She feels somewhat better, not feeling as week. She does not feel nauseous any more but when she uses inhaler only. No abd pain, persistent coughing, sob, cp, or urinary symptoms. She still feel winded at times. She eats little. She was having diarrhea but not today: it comes and goes. Allergies Allergy/AdvReac Type Severity Reaction Status Date / Time amoxicillin Allergy Severe Itching Unverified 03/22/23 16:51 aspirin Allergy Mild wheeze Verified 03/22/23 16:51 Home Medications Medication Instructions Recorded Confirmed Type multivitamin 1 tab PO DAILY ##0 11/12/10 03/22/23 History omega 8-rog-mum-fish oil 1,000 mg 1 cap PO DAILY ##0 11/12/10 03/22/23 History (120 mg-180 mg) capsule (Fish Oil) omeprazole 20 mg capsule,delayed 20 mg PO BID ##0 11/12/10 03/22/23 History release cholecalciferol (vitamin D3) 25 1,000 unit PO DAILY 01/25/19 03/22/23 History mcg (1,000 unit) capsule (Vitamin D3) metoprolol succinate 25 mg 25 mg PO QAM 01/25/19 03/22/23 History tablet,extended release 24 hr montelukast 10 mg tablet 10 mg PO HS 01/25/19 03/22/23 History ascorbic acid (vitamin C) 250 mg 250 mg PO QAM 06/01/19 03/22/23 History chewable tablet (Vitamin C) fluticasone propionate 50 1 spray intranasal DAILY 06/01/19 03/22/23 History mcg/actuation nasal spray,suspension (Flonase Allergy Relief) glucosamine-chondroitin 250 mg-200 1 tab PO QAM 06/01/19 03/22/23 History mg tablet (Osteo Bi-Flex) denosumab 60 mg/mL subcutaneous 60 mg subcut .[id number] 02/10/23 03/22/23 History syringe (Prolia) fluticasone fur. 200 mcg-umeclid 1 inh inhalation PM 02/10/23 03/22/23 History 62.5 mcg-vilant 25 mcg inhalat.powder (Trelegy Ellipta) rosuvastatin 20 mg tablet 20 mg PO HS 02/10/23 03/22/23 History Lactobacillus acidophilus 1 1,000 mmu cells PO DAILY #7 caps 02/14/23 03/22/23 Rx billion cell capsule cholestyramine-aspartame 4 gram 4 g PO BID@1000,2200 PRN diarrhea 02/14/23 03/22/23 Rx oral powder for susp in a packet #10 ea (Prevalite) ondansetron 4 mg disintegrating 4 mg PO DAILY PRN nausea and 02/14/23 03/22/23 Rx tablet vomiting #10 tabs Patient History Medical History Osteoporosis COPD (chronic obstructive pulmonary disease) Chronic sinusitis Asthma Diverticulitis Degenerative arthritis of knee, bilateral Trochanteric bursitis, right hip Osteoarthritis GERD (gastroesophageal reflux disease) Hyperlipidemia Hypertension Surgical History Hx laparoscopic cholecystectomy (03/08/23) Laparoscopic Cholecystectomy - Lili Alegre DO Hx of colonoscopy History of open reduction and internal fixation (ORIF) procedure RIGHT HIP Hx of sinus surgery Family History Other Family history non-contributory Social History Smoking Status: Former smoker Tobacco Type: Cigarettes Second Hand Exposure: No; Do You Dip or Chew Tobacco: No; Tobacco Cessation Education Requested by Patient: No Hx Alcohol Use: Yes Alcohol type: wine Hx Substance Use: No Preferred Language: Zimbabwean Communication Ability: Effective Vice Investigator Required: No Beliefs That Will Affect Care: None Current Living Situation: Spouse Current Living Situation Comment: lives at home w Other Information That Helps Us Care for You: Yes Feels Safe at Home: Yes Safety Concerns: Feels Safe At This Time Assistive Devices: Glasses Review of Systems as HPI and all others negative Physical Exam General: no acute distress Lungs: breathing comfortably on room air Neuro: alert, awake, oriented x3 Results & Data Vital Signs (Past 12 Hours) Vital Signs Temp Pulse Pulse Resp BP Pulse Ox O2 Del Method 03/23/23 09:00 Room Air 03/23/23 07:34 36.9 C 84 16 119/75 94 Room Air 03/23/23 07:00 87 03/23/23 04:29 36.7 C 90 18 126/66 93 Room Air Laboratory Results Labs WBC 5.83K H 10.7 Plt 376K Cr 0.53, Ca 6.8, phos 1.3 T bili 0.5 AST 39, ALT 19 PCT 21.[address] A/P (03/22) There is a multiloculated abscess involving the rectosigmoid junction. A component on image 246 measures 3.2 x 3.2 cm, previously 2.6 x 4.7 cm. A component on image 266 anterior to the rectum measures 2.4 x 4.0 cm, previously 5.6 cm. A few foci of extraluminal air again noted adjacent to the rectosigmoid. Unremarkable soft tissues. Postoperative changes of the right hip. IMPRESSION: 1. Improving findings of acute sigmoid diverticulitis with multiloculated abscess adjacent to the rectosigmoid, mildly decreased in size compared to the 03/12/2023 study. 2. Postoperative changes of recent laparoscopic cholecystectomy. 3. No bowel obstruction. 4. Bilateral renal cysts with indeterminate 1.2 cm right renal lesion. Correlation with follow-up renal ultrasound recommended.
--- NOTE | 2023-03-23 18:21 | Hospitalist Progress Note ---
Date of Service March 23, 2023 Assessment & Plan (1) Colonic diverticular abscess: Plan: CT abdomen/pelvis: 1. Improving findings of acute sigmoid diverticulitis with multiloculated abscess adjacent to the rectosigmoid, mildly decreased in size compared to the 03/12/2023 study. 2. Postoperative changes of recent laparoscopic cholecystectomy. 3. No bowel obstruction. 4. Bilateral renal cysts with indeterminate 1.2 cm right renal lesion. Correl ation with follow-up renal ultrasound recommended. 5. Additional findings as above. ID consulted- continue IV Ertapenem Gen Surg consulted- awaiting final recs continue IV fluids replete electrolytes Thread Grinder consult, [place] breakfast (2) Nausea and vomiting: Plan: likely from #1 supportive care (3) Hypomagnesemia: Plan: replaced (4) Acute hypokalemia: Plan: 2/2/ vomiting and poor PO intake. replaced (5) Hyperlipidemia: Plan: chronic, stable. Cont rosuvastatin per home regimen. (6) Chronic sinusitis: Plan: chronic, noncompliant with her typical home regimen 2/2 hospitalizations. Since she feels her mucous/post nasal drip is contributing to her nausea and vomiting issues will restart this now. Lovenox Full Disposition likely d/c home when medically stable to continue IV Ertapenem at home Admission and Anticipated Discharge Date Admission Date: March 22, 2023 Subjective ff up for diverticular abscess, etc seen resting in bed, sitting up states she is still having some nausea- somewhat better than yesterday has mild LLQ discomfort no melena/hematochezia still feels weak, appetite poor no other symptoms Review of Systems Review of Systems: all noted and negative except for above Physical Exam Physical Exam: General- oriented x 3, not in distress, speaks in sentences with no effort or accessory muscle use Eyes- anicteric Neck- no JVD Lungs- clear breath sounds bilaterally, no rales/wheezes Heart- normal rate, regular rhythm; no murmurs Abdomen- normal bowel sounds, nondistended, soft, mild LLQ tenderness Extremities- no pretibial edema, no calf tenderness Neuro- alert, oriented x 3; no gross focal neurologic deficits Skin- warm & dry Results & Data Results & Data Vital Signs (Past 12 Hours) Vital Signs Temp Pulse Pulse Resp BP Pulse Ox O2 Del Method 03/23/23 15:12 36.7 C 95 H 16 116/68 94 Room Air 03/23/23 15:00 90 03/23/23 09:00 Room Air 03/23/23 07:34 36.9 C 84 16 119/75 94 Room Air 03/23/23 07:00 87 all noted and reviewed including below
[2023-03-23] MEDS: ADVANCED PROBIOTIC 1250 MG CAPSULE PO SCH (18:42)
[2023-03-23] MEDS ORDERED: ERTAPENEM SODIUM 1,000 MG in SYRINGE 0 ML IV SCH (20:00)
[2023-03-23] MEDS: UMECLIDINIUM/VILANTEROL 62.5/25MCG 7 PUFFS/INHALER INH SCH (20:09)
[2023-03-23] MEDS: FLUTICASONE FUROATE 200MCG 14 PUFFS/INHALER INH SCH (20:10)
[2023-03-23] MEDS: ROSUVASTATIN CALCIUM 20 MG TAB PO SCH (20:10)
[2023-03-23] MEDS: MONTELUKAST SODIUM 10 MG TABLET PO SCH (20:10)
[2023-03-24] MEDS: SODIUM CHLORIDE 0.9% 1,000 ML IV SCH ×3 (01:48→17:32)
--- NOTE | 2023-03-24 07:35 | Surgery Progress Note ---
Date of Service March 24, 2023 Assessment & Plan (1) Colonic diverticular abscess: Plan: patient resting in bed Reports vomiting after getting her IV antibiotics last night ([facility]) despite getting zofran before administration Denies abdominal pain, fever, chills Still having loose stools VSS Admission and Anticipated Discharge Date Admission Date: March 22, 2023 Supervising Physician Co-Signing Physician Notes I have seen and examined this patient this AM. The patient is denying abdominal pain. Says that her abdomen just feels sick in general continues with loose stools secondary to the antibiotics. She states that she vomited again overnight last night vomiting food that she had eaten earlier that appeared to be undigested. e been explained to her including the risks and benefits. She expressed understanding of this explanation and all of her questions were answered and consent was obtained. If this is ruled out will recommend trying Reglan. N.p.o. after midnight Subjective patient resting in bed Reports vomiting after getting her IV antibiotics last night ([facility]) despite getting zofran before administration Denies abdominal pain, fever, chills Review of Systems Constitutional: + fatigue and + weakness; no fever and n o chills Respiratory: no dyspnea Cardiovascular: no chest pain Gastrointestinal: + early satiety, + heartburn, + nausea, + vomiting and + diarrhea/loose stools Genitourinary: no problem reported Physical Exam Physical Exam: alert oriented Constitutional: cooperative and comfortable; no acute distress Respiratory: normal respiratory effort and able to speak in complete sentences; no respiratory distress Cardiovascular: Rate/Rhythm: regular rate Gastrointestinal (Abdomen): Inspection/Auscultation: + abdominal surgical incision (healing post operative port sites ); abdomen not distended Percussion/Palpation: + abdomen tender (Mild TTP LLQ , RUQ quadrant) and abdomen soft; no guarding and abdomen not rigid Results & Data Vital Signs (Past 12 Hours) Vital Signs Temp Pulse Pulse Resp BP Pulse Ox O2 Del Method 03/24/23 07:12 84 03/24/23 03:54 98.1 F 89 18 126/69 96 Room Air 03/24/23 00:06 89 03/23/23 23:19 99.0 F 93 H 18 119/73 93 Room Air 03/23/23 19:39 99.3 F 92 H 18 126/77 94 Room Air PG Care Time/CCT Total # of Minutes Spent Total Time Spent with Patient: Total time spent is greater than 50% in coordination of care (as documented) at patient's floor/unit and/or counseling patient: Coding Level of Care Code 24434 SUB INP/OBS CARE Diagnoses Colonic diverticular abscess K57.20
[2023-03-24 08:42] LABS: Basophils # (auto) 0.03 K/uL (0.00-0.20); Basophils % (auto) 0.5 %; Eosinophils # (auto) 0.16 K/uL (0.00-0.50); Eosinophils % (auto) 2.9 %; Hemoglobin 9.4 g/dl (12.0-16.0); Immature Granulocytes # (auto) 0.02 K/uL (0.01-0.20); Immature Granulocytes % (auto) 0.4 %; Lymphocytes # (auto) 1.62 K/uL (1.20-3.40); Lymphocytes % (auto) 29.5 %; Mean Corpuscular Hemoglobin 28.3 pg (25.0-34.0); Mean Corpuscular Hgb Conc 32.4 g/dL (32.0-36.0); Mean Corpuscular Volume 87.3 fL (80.0-100.0); Mean Platelet Volume 9.8 fL (9.4-12.4); Monocytes # (auto) 0.45 K/uL (0.11-0.59); Monocytes % (auto) 8.2 %; Neutrophils # (auto) 3.22 K/uL (1.40-6.50); Neutrophils % (auto) 58.5 %; Platelet Count 335 K/uL (130-400); RDW Coefficient of Variation 14.5 % (11.5-14.5); RDW Standard Deviation 46.5 fL (36.4-46.3); Red Blood Count 3.32 M/uL (4.20-5.40)
[2023-03-24] MEDS: PANTOprazole 40 MG TAB PO SCH ×2 (08:57→20:29)
[2023-03-24] MEDS: ADVANCED PROBIOTIC 1250 MG CAPSULE PO SCH (08:57)
[2023-03-24] MEDS: guaiFENesin 600 MG TABCR PO SCH ×2 (08:57→20:28)
[2023-03-24] MEDS: ENOXAPARIN INJ 40 MG/0.4 ML SYR SQ SCH (08:58)
[2023-03-24] MEDS: METOPROLOL SUCC 25MG EXT REL TAB PO SCH (08:58)
[2023-03-24] MEDS: FLUTICASONE PROPIONATE NA SPR 16 GM BTL NAE SCH (08:58)
[2023-03-24 09:04] LABS: Albumin Level 2.7 gm/dl (3.4-5.0); BUN Creatinine Ratio 3.8 (10-20); Bilirubin,Total 0.4 mg/dl (0.2-1.0); Creatinine Clr Calc Pharmacy 82.7 ml/min; Est GFR (African American) 106.9 ml/min; Est GFR (Non-African American) 92.2 ml/min; Globulin 2.6 gm/dl (2.5-4.0); Magnesium 1.3 mg/dl (1.7-2.4); Phosphorus 1.7 mg/dl (2.5-4.9); Potassium 3.3 mmol/L (3.5-5.1); Total Protein 5.3 gm/dl (6.0-8.3)
[2023-03-24] MEDS ORDERED: MAGNESIUM SULFATE / D5W 1 GM/100 ML BAG IV ONE (11:30)
[2023-03-24] MEDS: POTASSIUM CHLORIDE CRTAB 20 MEQ TABCR PO SCH ×2 (12:06→20:29)
[2023-03-24] MEDS: POT PHOSPHATE MONOBASIC W/ SOD TAB PO SCH ×4 (14:06→20:29)
[2023-03-24] MEDS: MAGNESIUM CHLORIDE W/CALCIUM 64MG DELAYED REL TAB PO SCH ×2 (14:06→20:28)
[2023-03-24] MEDS: metroNIDAZOLE 500 MG/100 ML BAG IV SCH (17:32)
[2023-03-24] MEDS: PROMETHAZINE HCL 25 MG TAB PO PRN (17:37)
--- OUTSIDE RECORDS SUMMARY | 2023-03-24 19:44 | External Medical Summary | Summary of Care ---
Author Name Unknown Organization [facility] Address [address] [facility] [place] [address] Phone [phone] Care Team Providers Care Dumper Mold Cleaner Name Role Phone Manoj Weber DO Primary Care Provider Encounter Details Date Type Department Care Team (Late st Contact Info) Description 03/02/2023 Population Health External Data Unspecified Department Allergies Active Allergy Reactions Criticality Noted Date Comments Amoxicillin Itching 06/25/2022 Amoxicillin-Pot Clavulanate Itching 06/25/19 23 Salicylates 03/03/2001 Asthmatic reaction (aspirin; no food allergies) documented as of this encounter (statuses as of 03/21/2023) Medications Medication Sig Dispensed Refills Start Date End Date Status CALCIUM + D 600-200 MG-UNIT PO TABS Take by mouth at bedtime . 0 07/07/2005 Active MULTIVITAMIN PO TABS daily 0 07/07/2005 Acti ve OSTEO BI-FLEX ADV TRIPLE ST PO TABS Take by mouth at bedtime . 0 02/02/2007 Active NASAL SALINE 0.65 % NA SOLNIndications:Chron ic sinusitis 2 squirts each nostril morning and night and every 2-4 hrs as needed for nasal dryness or congestion 1 bottle 0 02/02/2007 Active FISH OIL 1000 MG PO CAPS One each day 0 Active MUCINEX 600 MG PO [id number]:Chron ic sinusitis,Allergic rhinitis 1-2 pills by mouth twice a day for congestion with plenty of water as needed. Do not cut, crush or chew 50 Tab 3 11/27/2012 Active Additional Information Patient taking differently: 600 mgOralDaily(AM), Reported on 05/24/2022 Cholecalciferol (VITAMIN D) 1000 UNIT Capsule Take 2 Capsules by mouth at bedtime. 30 Cap 11 11/28/2014 Active Loratadine 10 MG Oral Capsule Take 1 Capsule by mouth as needed for Allergies. 0 Active Fluticasone Furoate (FLONASE SENSIMIST) 27.5 MCG/SPRAY nasal spray Administer 2 Sprays into nostril daily. 10 g 12 01/15/2019 Active Peak Flow Meter Device Use daily to track asthma symptoms. 1 Each 2 01/20/2021 Active Cranberry 250 MG Oral Tablet Take by mouth 1 Tablet daily . 0 Active Collagen Hydrolysate Powder Use as directed . 0 Active Acetaminophen ER 650 MG Oral Tablet Extended Release Take 2 Tablets by mouth in the morning. 0 Active Albuterol Sulfate (2.5 MG/3ML) 0.083% Inhalation Nebulization Solution (Proventil)Indication s:Mild persistent asthma without complication ONE VIA NEBULIZER EVERY 4 HRS NEEDED FOR COUGH, WHEEZE, SHORTNESS OF BREATH 3 mL 1 06/08/2022 Active Omeprazole 20 MG Oral Capsule Delayed Release (PriLOSEC)Indications :GERD (gastroesophageal reflux disease) TAKE ONE CAPSULE BY MOUTH TWICE A DAY THIRTY MINUTES BEFORE BREAKFAST AND EVENING MEAL 200 Capsule 1 11/01/2022 4 Active Rosuvastatin Calcium 20 MG Oral Tablet (Crestor)Indications: Dyslipidemia, goal LDL below 70 TAKE ONE TABLET BY MOUTH AT BEDTIME 100 Tablet 0 09/22/2022 4 Active Metoprolol Succinate ER 25 MG Oral Tablet Extended Release 24 Hour (toPROL XL)Indications:[place] atherosclerosis of [place] coronary artery,Patent foramen ovale,HTN, goal below 130/80 TAKE ONE TABLET BY MOUTH EVERY MORNING 100 Tablet 3 04/12/2022 3 Active Montelukast Sodium 10 MG Oral Tablet (Singulair) Take 1 Tablet by mouth in the morning. 90 Tablet 3 12/07/2022 Active Trelegy Ellipta 200-62.5-25 MCG/ACT Aerosol Powder Breath Activated (Fluticasone-Umeclidi nium-Vilanterol) Inhale 1 Puff by mouth every evening. 180 Blister Dosing Unit 3 01/11/2023 Active Prolia 60 MG/ML Subcutaneous Solution Prefilled Syringe Inject 60 mg under the skin every 6 months. 1 Each 1 01/21/2023 Active Acidophilus Lactobacillus Oral Capsule Take 1 Capsule by mouth daily. 0 02/14/2023 Active Ondansetron 4 MG Oral Tablet Disintegrating (Zofran) Place 1 Tablet on tongue as needed. 0 02/14/2023 Active Loperamide HCl 2 MG Oral Tablet (Immodium (A-D))Indications:Orin rrhea, unspecified type Take 1 Tablet by mouth 4 times a day as needed for Diarrhea. 30 Tablet 0 02/21/2023 Active documented as of this encounter (statuses as of 03/21/2023) Active Problems Problem Noted Date Diagnosed Date Colonic diverticular abscess 03/13/2023 Diverticulitis of sigmoid colon 03/13/2023 S/P laparoscopic cholecystectomy 03/13/2023 Chronic pain of right knee 06/10/2020 Age-related osteoporosis wit hout current pathological fracture 12/06/2019 Atrial septal aneurysm 01/05/2019 Gastroesophageal reflux disease without esophagi tis 02/10/2018 Asthma, mild persistent 06/24/2011 Chronic sinusitis 06/24/2011 History of nasal polyp 06/24/2011 Dyslipidemia, goal LDL below 70 06/10/2011 ASPIRIN, CONTRAINDICATED- WHEEZING 03/10/2011 Atherosclerosis of [place] co ronary artery of [place] heart without angina pectoris 03/10/2011 Overview: Cardiac catheterization 02/12/11 30-40 % proximal LAD stenosis Diagonal 70 % Obtuse marginal 50% Systolic Fctn is normal Patent foramen ovale 01/01/2011 ADVANCE DIRECTIVE INFORMATION 07/07/2005 Overview: No, Advance Directive brochure given to patient at prior appointment. documented as of this encounter (statuses as of 03/21/2023) Resolved Problems Problem Noted Date Diagnosed Date Resolved Date Encounter for examination fo r normal comparison and control in clinical research program 09/04/2018 12/10/2019 Overview: DO NOT DELETE [facility] DETECT Study: Project # [id number], Engineering Agent: Joe Pelletier, PhD. SUMMARY: Goal: Establish test characteristics (sensitivity, specificity, PPV, NPV) of a circulating tumor DNA (ctDNA)-based test for cancer. Hypothesis: Circulating tumor DNA (ctDNA) and elevated protein biomarkers (together, the marker panel) can be detected in asymptomatic individuals with early cancer. Specific Aim 1: Determine the prevalence of a positive marker panel test in a prospective clinical cohort of 10,000 asymptomatic women ages 65 to 75 years. Specific Aim 2: Determine the sensitivity, specificity, positive predictive value (PPV) and negative predictive value (NPV) of a marker panel test to identify histologically proven cancers that develop within 5-years of the marker panel evaluation. CONTACTS: During normal business hours, contact study staff at ; after hours Engineering Agent via the [facility] braze operator . Please contact study team before resolving/deleting from patients problem list. Study phone number: [phone]. Diagnosis changed due to Research Module. Go to Snapshot for study details. Encounter for examination fo r normal comparison and control in clinical research program 09/04/2018 01/07/2022 Overview: DO NOT DELETE - [facility] Study: Project # [id number], Engineering Agent: Kahlil Augustin, MS, MPH. SUMMARY: Goal: Establish test characteristics (sensitivity, specificity, PPV, NPV) of a circulating tumor DNA (ctDNA)-based test for cancer. - Hypothesis: Circulating tumor DNA (ctDNA) and elevated protein biomarkers (together, the marker panel) can be detected in asymptomatic individuals with early cancer. - Specific Aim 1: Determine the prevalence of a positive marker panel test in a prospective clinical cohort of 10,000 asymptomatic women ages 65 to 75 years. - Specific Aim 2: Determine the sensitivity, specificity, positive predictive value (PPV) and negative predictive value (NPV) of a marker panel test to identify histologically proven cancers that develop within 5-years of the marker panel evaluation. - CONTACTS: During normal business hours, contact study staff at ; after hours Engineering Agent via the [facility] braze operator . - Please contact study team before resolving/deleting from patients problem list. Study phone number: [phone]. Diagnosis changed due to Research Module. Go to [employer] for study details. 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 exterminator current use of ant icoagulant therapy 01/01/2011 02/14/2011 Overview: ICD-10 update of inactive term Anticoagulation management encounter 01/01/2011 11/13/2018 Senile cataract 02/13/2007 12/16/2020 Overview: Cataract surgery 2004 OS Patient now with cataract OD Osteoporosis 12/23/2005 12/06/2019 VISUAL LOSS NOS 12/14/2005 08/09/2017 Overview: Dr rex Toure of back 07/08/2005 08/09/2017 Allergic rhinitis 01/02/2003 06/24/2011 Esophageal reflux 01/02/2003 06/24/2011 BONE & CARTILAGE DIS NOS 10/05/200207/2017 Asthma with severity to be determined 04/02/2002 03/22/2011 Overview: ICD-10 update of inactive term Chronic sinusitis 04/02/2002 06/24/2011 Polyp of nasal cavity 04/02/20022011 Asthma, mild persistent 04/02/200206/09 Overview: Per Provider Protocol. Vertigo 08/09/2017 Sensorineural hearing loss, bilateral 11/15/2018 Chronic pharyngitis 06/24/19 12 documented as of this encounter (statuses as of 03/21/2023) Immunizations Name Administration Dates Next Due COVID-19 mRNA, LNP-s, No Pre serve, 2-Dose Series ([employer]) 04/16/2021,07/21/2020,06/23/2020 Pneumococcal Conjugate Vacc, 13 Valent (Prevnar) 12/01/2015 Pneumococcal Polysaccharide PPV23 (Pneumovax) 08/09/2017,07/29/2008 SEASONAL INFLUENZA, PF, 6 M & Above, IM , (FLULAVAL or FLUZONE) 01/03/2020,02/10/2018,02/02/2017 Seasonal Influenza, Quadriva lent Hd (Fluzone Hd) 03/05/2022,04/27/2021 Seasonal Influenza, Quadriva lent, No Preserve, IM 01/26/2016 Seasonal Influenza, Split, I IV3, With Preserve, Inj 01/29/2015,03/15/2013,05/03/2012,11/0 06/2010,03/10/2010,02/15/2008,02/03/20 07 01/30/2016 Seasonal Influenza, Trivalen t, Adjuvanted, 65+ yrs 02/07/2019 TD, Preservative Free 08/11/2018 TDAP (age 11 and older)(Adacel) 01/29/2008 documented as of this encounter Social History Tobacco Use Types Packs/Day Years Used Date Smoking Tobacco: Former Cigarettes 1 13 Q uit: 05/09/1977 Passive Smoke Exposure: Past Smokeless Tobacco: Never Comments:quit at age 31 Alcohol Use Standard Drinks/Week Comments Yes 0 (1 standard drink = 0.6 oz pur e alcohol) rarely PHQ-2 Answer Date Recorded PHQ Adult Total Score 0 03/02/2023 Hunger Vital Sign Answer Date Recorded Within the past 12 months, y ou worried that your food would run out before you got the money to buy more. Never true 03/02/20 23 Within the past 12 months, t he food you bought just didn't last and you didn't have money to get more. Never true 03/02/2023 Sex and Gender Information Value Date Recorded Sex Assigned at Female 01/05/2019 2:11 PM EDT Gender Identity Female 01/05/2019 2:11 PM EDT Sexual Orientation Straight 01/05/2019 2: 11 PM EDT Job Start Date Occupation Industry Not on file Not on file Not on file documented as of this encounter Plan of Treatment Upcoming Encounters Date Type Department Care Team (Latest Contact Info) Description 04/04/2023 11:15 AM EST Imaging Radiology [address], [address] [address] 04/07/2023 1:40 PM EST Office Visit Infectious Disease, [address] [place] [address] Baudilio Oates, DO [address] [place] [address] 05/04/2023 11:00 AM EST Imaging Radiology, [place] [id number] [facility] [place] [address] 06/02/2023 1:00 PM EST Nurse Only Ancillary [address] [facility] [address] [facility] [address] [place], Nurse Annual Wellness Visit [address] [address] 06/09/2023 11:30 AM EST Office Visit Allergy/Immunology [facility] [place] [address] [place] [address] Lydia Zafar PA-C [address] [place] [address] 06/14/2023 2:30 PM EST Hospital Encounter ENDO [facility], Endoscopy Room [facility] [address] [place] [id number] Judd Adams MD [address] [place] [address] 06/14/2023 2:30 PM EST - 06/14/2023 3:00 PM EST Surgery ENDO [facility], Endoscopy Room [facility] [address] [place] [id number] Judd Adams MD [address] [place] [address] COLONOSCOPY FLEXIBLE PROXIMAL DIAGNOSTIC 07/28/2023 10:00 AM EDT Office Visit Rheumatology [place] [id number] [facility] [place] [address] Devendra Shepherd CRNP [address] [place] [address] Scheduled Procedures Name Priority Associated Diagnoses Date/Ti me COLONOSCOPY FLEXIBLE PROXIMAL DIAGNOSTIC Diverticulitis Abnormal CT of the abdomen Family history of colon cancer 06/14/2023 2:30 PM EST Health Maintenance Due Date Last Done Comments Zoster Vaccines (1 of 2) 1996 COLONOSCOPY-EVERY 5 YRS AGES 18-100 06/13/2020 06/13/2015, 06/13/2015, 05/18/2010, Additional history exists COVID-19 Vaccine ( season) 2023 04/16/2021, 07/21/2020, 06/23/2020 Influenza Vaccine (FLU shot) (#1) 2023 03/05/2022, 04/27/2021, 01/03/2020, Additional history exists DXA Scan 04/27/2023 04/27/2021, 02/06, 08/26/2014, Additional history exists Depression Screening 03/02/2024 03/02/2023 DTaP,Tdap,and Td Vaccines (3 - Td or Tdap) 08/11/2028 08/11/2018, 01/29/2008 Pneumococcal Vaccine: 65+ Years Completed 08/09/2017, 12/01/2015, 07/29/2008 VITAMIN D LEVEL ONCE IN A LIFETIME-USE SMARTSET# [id number] Completed 05/13/2021, 09/01/2012, 01/30/2009 Albumin/Creatinine Ratio Discontinued 06/21/2022, 06/10 GARDASIL-HPV IMMUNIZATION SERIES Aged Out No longer eligible based on patient's age to complete this topic Hepatitis B Aged Out No longer eligi ble based on patient's age to complete this topic MENINGOCOCCAL (MENACTRA/MENVEO) Aged Out No longer eligible based on patient's age to complete this topic documented as of this encounter Medical Devices Not on filedocumented as of this encounter Additional Health Concerns Infection Onset Date Last Indicated Resolved Time Respiratory Rule-Out 03/17/2023 03/17/2023 023 10:45 AM EST COVID-19 Rule-Out 03/17/2023 03/17/2023 03/17/2023 10:45 AM EST documented as of this encounter Advance Directives Latest Code Status on File Code Status Date Activated Date Inactivated Comments Full Code 03/13/2023 2:20 AM 03/17/2023 6:39 PM This order reflects the patients wishes and were consensually agreed upon. Question Answer Comments Discussion of Advance Directives occurred with: Patient Care Teams Dumper Mold Cleaner Relationship Specialty Start Date End Date Manoj Weber DO [address] [facility] [place] [address] PCP - General 12/23/05 documented as of this encounter
--- OUTSIDE RECORDS SUMMARY | 2023-03-24 19:44 | External Medical Summary | Summary of Care ---
Author Name Unknown Organization [facility] Address [address] [facility] [place] [address] Phone [phone] Care Team Providers Care Guide Escort Name Role Phone Manoj Weber DO Primary Care Provider [phone] Reason for Visit * Reason Onset Date Comments Appointment 03/02/2023 Encounter Details Date Type Department Care Team (Late st Contact Info) Description 03/02/2023 Telephone Family Practice [address] [facility] [address] [place] [phone] Manoj Weber [address] [place] [address] Appointment Allergies Active Allergy Reactions Criticality Noted Date Comments Amoxicillin Itching 06/25/2022 Amoxicillin-Pot Clavulanate Itching 06/25/19 23 Salicylates 03/03/2001 Asthmatic reaction (aspirin; no food allergies) documented as of this encounter (statuses as of 03/21/2023) Medications Medication Sig Dispensed Refills Start Date End Date Status CALCIUM + D 600-200 MG-UNIT PO TABS Take by mouth at bedtime . 0 6 Active MULTIVITAMIN PO TABS daily 0 6 Active OSTEO BI-FLEX ADV TRIPLE ST PO TABS Take by mouth at bedtime . 0 7 Active NASAL SALINE 0.65 % NA SOLNIndications:Chr onic sinusitis 2 squirts each nostril morning and night and every 2-4 hrs as needed for nasal dryness or congestion 1 bottle 0 7 Active FISH OIL 1000 MG PO CAPS One each day 0 Active MUCINEX 600 MG PO [id number]:Chr onic sinusitis,Allergic rhinitis 1-2 pills by mouth twice a day for congestion with plenty of water as needed. Do not cut, crush or chew 50 Tab 3 3 Active Additional Information Patient taking differently: 600 mgOralDaily(AM), Reported on 05/24/2022 Cholecalciferol (VITAMIN D) 1000 UNIT Capsule Take 2 Capsules by mouth at bedtime. 30 Cap 11 5 Active Loratadine 10 MG Oral Capsule Take 1 Capsule by mouth as needed for Allergies. 0 Active Fluticasone Furoate (FLONASE SENSIMIST) 27.5 MCG/SPRAY nasal spray Administer 2 Sprays into nostril daily. 10 g 12 9 Active Peak Flow Meter Device Use daily to track asthma symptoms. 1 Each 2 1 Active Cranberry 250 MG Oral Tablet Take by mouth 1 Tablet daily . 0 Active Collagen Hydrolysate Powder Use as directed . 0 Active Acetaminophen ER 650 MG Oral Tablet Extended Release Take 2 Tablets by mouth in the morning. 0 Active Albuterol Sulfate (2.5 MG/3ML) 0.083% Inhalation Nebulization Solution (Proventil)Indicati ons:Mild persistent asthma without complication ONE VIA NEBULIZER EVERY 4 HRS NEEDED FOR COUGH, WHEEZE, SHORTNESS OF BREATH 3 mL 1 3 Active Omeprazole 20 MG Oral Capsule Delayed Release (PriLOSEC)Indicatio ns:GERD (gastroesophageal reflux disease) TAKE ONE CAPSULE BY MOUTH TWICE A DAY THIRTY MINUTES BEFORE BREAKFAST AND EVENING MEAL 200 Capsule 1 3 11/01/19 24 Active Rosuvastatin Calcium 20 MG Oral Tablet (Crestor)Indication s:Dyslipidemia, goal LDL below 70 TAKE ONE TABLET BY MOUTH AT BEDTIME 100 Tablet 0 3 09/22/19 24 Active Metoprolol Succinate ER 25 MG Oral Tablet Extended Release 24 Hour (toPROL XL)Indications:Willy nary atherosclerosis of osage coronary artery,Patent foramen ovale,HTN, goal below 130/80 TAKE ONE TABLET BY MOUTH EVERY MORNING 100 Tablet 3 2 04/24/20 23 Active Montelukast Sodium 10 MG Oral Tablet (Singulair) Take 1 Tablet by mouth in the morning. 90 Tablet 3 3 Active Trelegy Ellipta 200-62.5-25 MCG/ACT Aerosol Powder Breath Activated (Fluticasone-Umecli dinium-Vilanterol) Inhale 1 Puff by mouth every evening. 180 Blister Dosing Unit 3 3 Active Prolia 60 MG/ML Subcutaneous Solution Prefilled Syringe Inject 60 mg under the skin every 6 months. 1 Each 1 3 Active Acidophilus Lactobacillus Oral Capsule Take 1 Capsule by mouth daily. 0 3 Active Ondansetron 4 MG Oral Tablet Disintegrating (Zofran) Place 1 Tablet on tongue as needed. 0 3 Active Loperamide HCl 2 MG Oral Tablet (Immodium (A-D))Indications:D iarrhea, unspecified type Take 1 Tablet by mouth 4 times a day as needed for Diarrhea. 30 Tablet 0 3 Active Ciprofloxacin HCl 500 MG Oral Tablet (Cipro)Indications: Diverticulitis of colon Take 1 Tablet by mouth in the morning and 1 Tablet before bedtime. Do all this for 10 days. 20 Tablet 0 3 03/17/20 23 Discontinued metroNIDAZOLE 500 MG Oral TabletIndications:D iverticulitis of colon Take 1 Tablet by mouth in the morning and 1 Tablet at noon and 1 Tablet before bedtime. Do all this for 10 days. 30 Tablet 0 3 03/17/20 23 Discontinued documented as of this encounter (statuses as [...] 06/10/2011 ASPIRIN, CONTRAINDICATED- WHEEZING 03/10/2011 Atherosclerosis of os[place] co ronary artery of osage heart without angina pectoris 03/10/2011 Overview: Cardiac [...] program 09/04/2018 12/10/2019 Overview: DO NOT DELETE [facility] [place] DETECT Study: Project # [id number], Supervisor Poultry Farm: Joe Pelletier, PhD. SUMMARY: Goal: Establish test [...] contact study staff at ; after hours Supervisor Poultry Farm via the [facility] acid crane operator . Please contact study team before resolving/deleting from patients problem list. Study phone number: [phone]. Diagnosis changed due to Research Module. Go to Snapshot for study details. Encounter for examination fo r normal comparison and control in clinical research program 09/04/2018 01/07/2022 Overview: DO NOT DELETE [facility] DETECT Study: Project # [id number], Supervisor Poultry Farm: Kahlil Augustin, MS, MPH. SUMMARY: Goal: Establish [...] contact study staff at ; after hours Supervisor Poultry Farm via the [facility] acid crane operator . - Please contact study team before resolving/deleting from patients problem list. Study phone number: [phone]. Diagnosis changed due to Research Module. Go to Snapshot for study details. 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 current use of ant icoagulant therapy 01/01/2011 02/14/2011 Overview: ICD-10 update of inactive term Anticoagulation management encounter 01/01/2011 11/13/2018 Senile cataract 02/13/2007 12/16/2020 Overview: Cataract surgery 2005 OS Patient now with cataract OD Osteoporosis [...] mRNA, LNP-s, No Pre serve, 2-Dose Series (IntY) 04/16/2021,07/21/2020,06/23/2020 Pneumococcal Conjugate Vacc, 13 Valent (Prevnar) 12/01/2015 Pneumococcal Polysaccharide PPV23 (Pneumovax) 08/09/2017,07/29/2008 SEASONAL INFLUENZA, PF, 6 M & Above, IM , (FLULAVAL or FLUZONE) 01/03/2020,02/10/2018,02/02/2017 Seasonal Influenza, Quadriva lent Hd (Fluzone Hd) 03/05/2022,04/27/2021 Seasonal Influenza, Quadriva lent, No Preserve, IM 01/26/2016 Seasonal Influenza, Split, I IV3, With Preserve, Inj 01/29/2015,03/15/2013,05/03/2012,06/2010,03/10/2010,02/15/2008,02/03/20 07,03/24/2005,04/03/2002 01/30/2016 Seasonal Influenza, Trivalen t, Adjuvanted, 65+ [...] on file documented as of this encounter Miscellaneous Notes * Telephone Encounter - Benito Ovalle OSA - 03/21/2023 1:59 PM EST Called and spoke w/ pt to offer sooner date for colonoscopy. Pt declined at this time, states she will call if she would like to be moved up. * Telephone Encounter - Benito Ovalle OSA - 03/04/2023 1:20 PM EDT Received notice that pt is currently inpt at [facility]. * Telephone Encounter - Freddie Patton OSA - 03/02/2023 3:20 PM EDT Added to wait list in case any appointments open in the mean time then we will reach out to patientto move her up as we get cancellations * Telephone Encounter - Tatiana Coyle LPN - 03/02/2023 2:49 PM EDT Patient in hospital for diverticulitis 02/10/2023 colonoscopy was ordered 6 weeks post this date, currently not scheduled until June--this needs to be changed to 6 weeks as directed by hosp discharge per pcp. documented in this encounter Plan of Treatment Upcoming Encounters Date Type Department Care Team (Latest Contact Info) Description 04/04/2023 11:15 AM EST Imaging Radiology [address] [place] [address] 04/07/2023 1:40 PM EST Office Visit Infectious Disease, [place] [address] [place] [address] Baudilio Oates, [address] [place] [address] 05/04/2023 11:00 AM EST Imaging Radiology, [facility] [address] [facility] [place] [address] 06/02/2023 1:00 PM EST Nurse Only Ancillary [address] [facility] [address] [place] [address] College, Nurse Annual Wellness Visit [address] [address] 06/09/2023 11:30 AM EST Office [facility] [address] [facility] [place] [address] Lydia Zafar PA-C [address] [facility] [place] [address] 06/14/2023 2:30 PM EST Hospital Encounter ENDO [facility], Endoscopy Room [facility] [address] [place] [phone] Judd Adams MD [address] [place] [address] 06/14/2023 2:30 PM EST - 06/14/2023 3:00 PM EST Surgery ENDO [facility], Endoscopy Room [facility] [address] [place] [phone] Judd Adams MD [address] [place] [address] COLONOSCOPY FLEXIBLE PROXIMAL DIAGNOSTIC 07/28/2023 10:00 AM EDT Office Visit Rheumatology [facility] [address] [facility] [place] [address] Devendra Shepherd CRNP [address] [place] [address] Scheduled Procedures Name Priority Associated Diagnoses Date/Ti [...] D LEVEL ONCE IN A LIFETIME-USE SMARTSET# [id number] Completed 05/13/2021, 09/01/2012, 01/30/2009 Albumin/Creatinine Ratio Discontinued [...] Advance Directives occurred with: Patient Care Teams Guide Escort Relationship Specialty Start Date End Date Manoj Weber DO [address] [place] [address] PCP - General 12/23/05 documented as of this encounter
--- OUTSIDE RECORDS SUMMARY | 2023-03-24 19:44 | External Medical Summary | Summary of Care ---
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 2 squirts each nostril morning and night and every 2-4 hrs as needed for nasal dryness or congestion 1 bottle 0 02/02/2007 Active FISH OIL 1000 MG PO CAPS One each day 0 Active MUCINEX 600 MG PO [id number]: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 anita sinusitis,Allergic rhinitis 1-2 pills by mouth twice [...] Sulfate (2.5 MG/3ML) 0.083% Inhalation Nebulization Solution (Proventil)Indicatio ns:Mild persistent asthma without complication ONE VIA NEBULIZER EVERY 4 HRS NEEDED FOR COUGH, WHEEZE, SHORTNESS OF BREATH 3 mL 1 06/08/2022 Active Omeprazole 20 MG Oral Capsule Delayed Release (PriLOSEC)Indication s:GERD (gastroesophageal reflux disease) TAKE ONE CAPSULE BY MOUTH TWICE A DAY THIRTY MINUTES BEFORE BREAKFAST AND EVENING MEAL 200 Capsule 1 11/01/2022 11/01/19 24 Active Rosuvastatin Calcium 20 MG Oral Tablet (Crestor)Indications :Dyslipidemia, goal LDL below 70 TAKE ONE TABLET BY MOUTH AT BEDTIME 100 Tablet 0 09/22/2022 09/22/19 24 Active Metoprolol Succinate ER 25 MG Oral Tablet Extended Release 24 Hour (toPROL XL)Indications:Coron amy atherosclerosis of [place] coronary artery,Patent foramen ovale,HTN, goal below 130/80 TAKE ONE TABLET BY MOUTH EVERY MORNING 100 Tablet 3 04/12/2022 04/24/20 23 Active Montelukast Sodium 10 MG Oral Tablet (Singulair) Take 1 Tablet by mouth in the morning. 90 Tablet 3 12/07/2022 Active Trelegy Ellipta 200-62.5-25 MCG/ACT Aerosol Powder Breath Activated (Fluticasone-Umeclid inium-Vilanterol) Inhale 1 Puff by mouth every evening. [...] Loperamide HCl 2 MG Oral Tablet (Immodium (A-D))Indications:Di arrhea, unspecified type Take 1 Tablet by mouth 4 times a day as needed for Diarrhea. 30 Tablet 0 02/21/2023 Active ertapenem INJ IV (AMBULATORY) Administer 1 g intravenously daily for 21 days. 21 g 0 03/17/2023 04/07/20 23 Active documented as of this encounter (statuses [...] 06/10/2011 ASPIRIN, CONTRAINDICATED- WHEEZING 03/10/2011 Atherosclerosis of [place] si[place] co ronary artery of [place] heart without angina pectoris 03/10/2011 Overview: Cardiac [...] Overview: DO NOT DELETE [facility] DAY Study: Project # [id number], Customer Response Representative: Joe Pelletier, PhD. SUMMARY: Goal: Establish test [...] contact study staff at ; after hours Customer Response Representative via the [facility] utility system operator . Please contact study team before resolving/deleting from patients problem list. Study phone number: [phone]. Diagnosis changed due to Research Module. Go to Snapshot for study details. Encounter for examination fo r normal comparison and control in clinical research program 09/04/2018 01/07/2022 Overview: DO NOT DELETE - [facility] DETECT Study: Project # [id number], Customer Response Representative: Kahlil Augustin, MS, MPH. SUMMARY: Goal: Establish [...] contact study staff at ; after hours Customer Response Representative via the [facility] utility system operator . - Please contact study team before resolving/deleting from patients problem list. Study phone number: [phone]. Diagnosis changed due to Research Module. Go to Snapshot for study details. 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 11/15/2018 Lung collapse 08/13/2011 08/09/2018 Allergic rhinitis 06/24/2011 08/11/2018 GERD (gastroesophageal reflux disease) 06/24/2011 02/10/2018 HTN, goal below 130/80 03/19/201102/21 TIA (transient ischemic attack) 01/01/2011 02/10/2018 shelter current use of ant icoagulant therapy 01/01/2011 [...] mRNA, LNP-s, No Pre serve, 2-Dose Series (Pfizer) 04/16/2021,07/21/2020,06/23/2020 Pneumococcal Conjugate Vacc, 13 Valent (Prevnar) 12/01/2015 Pneumococcal Polysaccharide PPV23 (Pneumovax) 08/09/2017,07/29/2008 SEASONAL INFLUENZA, PF, 6 M & Above, IM , (FLULAVAL or FLUZONE) 01/03/2020,02/10/2018,02/02/2017 Seasonal Influenza, Quadriva lent Hd (Fluzone Hd) 03/05/2022,04/27/2021 Seasonal Influenza, Quadriva lent, No Preserve, IM 01/26/2016 Seasonal Influenza, Split, I IV3, With Preserve, Inj 01/29/2015,03/15/2013,05/03/2012,06/2010,03/10/2010,02/15/2008,02/03/20 07 01/30/2016 Seasonal Influenza, Trivalen t, Adjuvanted, [...] on file documented as of this encounter Functional Status Functional Status Response Date of Assess ment Are you deaf or do you have serious difficulty h earing? No 03/13/2023 Are you blind or do you have serious difficulty seeing, even when wearing glasses? No 03/13/2023 Do you have serious difficul ty walking or climbing stairs? (5 years old or older) No 03/13/2023 Do you have difficulty dress ing or bathing? (5 years old or older) No 03/13/2023 Because of a physical, menta l, or emotional condition, do you have difficulty doing errands alone such as visiting a doctor s office or shopping? (15 years old or older) No 03/13/20 Cognitive Status Response Date of Assessm ent Because of a physical, menta l, or emotional condition, do you have serious difficulty concentrating, remembering, or making decisions? (5 years old or older) No 03/13/2023 documented as of this encounter Progress Notes * Caitie Rocha RN - 03/21/2023 2:[address] Cdl Driver Progress Note: Date: 03/21/23 Assigned Patient Tier: 2 Connected with patient via telephone. Verified patient name/. Advised patient that call is beingrecorded for quality and training purposes. Assessment: Pt. noted the following: CM call for KHANH follow up. Pt reports that she is still not feeling well. She has veyr little appetite and has been nauseated with some vomiting of mucous. She ate today a small amount of cream of wheat, 1/4 of a turkey sandwich and a few bites of banana. States that she had to force herself to eat this. She is also having loose stools and is overall very weak. She is using a walker for ambulation to the bathroom which is not her baseline. Her daughter is doing the IV antibiotic. She is to have the antibiotic a total of 21 days and is also taking a PO probiotic. She denies any fevers at this time but just reports overall feeling "unwell". She did not want to schedule a hospital follow up at this itme d/t not feeling well but stated she would try to come if it is scheduled for next week. She is agreeable to a CM follow up call later this week. Did you receive an alert for an annual wellness visit? No Is this call for a hospital, snf or rehab facility discharge to home? Yes [facility] Medication Reconciliation: Medication Reconciliation completed: yes Review of Current goals: Discussed the following patient-centered CM goals with the patient during this discussion: -Prevention: Prevent admission/readmission -Status: At Risk reports feeling unwell. -: Patient will have issues addressed -Status: On Track needs f/u with infectious disease and a colonoscopy. -SAFETY: Prevent falls or injuries -Status: On Track using a walker and has home health. . COPD Patient: No CHF Patient: NO CM Plan: Reviewed 3 Red Flags with patient. Advised to call CM with any of the following: Red Flag 1: feversor chills, Red Flag 2: nausea or vomiting, or Red Flag 3: worsening diarrhea Remote Patient Monitoring: Current Health 24 Hour Monitor Offered. Patient Declined. Plan for Future Contacts: Plan to follow up later this week to check progress on the following goals/needs KHANH/poor appetite. Planned contacts from the following parties will occur this week: home health nursing as additionalcontacts per workflow. Advancement/Closure Plan: Keep patient at current Tier with reassessment per workflow. Patient provided CM contact information and encouraged to call with any changes in condition. SNP Member? No PCP Notified of enrollment in CM/HM program: Yes Is Provider in agreement with POC? Yes Caitie Rocha RN Outpatient Case Management documented in this encounter Plan of Treatment Upcoming Encounters Date Type Department Care Team (Latest Contact Info) Description 04/04/2023 11:15 AM EST Imaging Radiology [address] [place] [address] 04/07/2023 1:40 PM EST Office Visit Infectious Disease, [place] [address] [place] [address] Baudilio Oates, [address] [place] [address] 05/04/2023 11:00 AM EST Imaging Radiology, [place] [id number] [place], [place] [address] 06/02/2023 1:00 PM EST Nurse Only Ancillary 65 [facility] [address] [facility], [place] [address] College, Nurse Annual Wellness Visit [address], [place] [address] 06/09/2023 11:30 AM EST Office Visit Allergy/Immunology [facility] [address] [place] [address] [place], [place] [address] Lydia Zafar PA-C [address] [place] [address] 06/14/2023 2:30 PM EST Hospital Encounter ENDO [facility], Endoscopy Room [facility] [address] [facility] [place] [phone] Judd Adams MD [address] [place] [address] 06/14/2023 2:30 PM EST - 06/14/2023 3:00 PM EST Surgery ENDO [facility], [facility] [address] [facility] [place] [phone] Judd Adams MD [address] [place] [address] COLONOSCOPY FLEXIBLE PROXIMAL DIAGNOSTIC 07/28/2023 10:00 AM EDT Office Visit Rheumatology [place] [address] [place] [address] Devendra Shepherd CRNP [facility] [place] [address] Scheduled Procedures Name Priority Associated Diagnoses Date/Ti me COLONOSCOPY FLEXIBLE PROXIMAL DIAGNOSTIC Diverticulitis Abnormal CT of the abdomen Family history of colon cancer 06/14/2023 2:30 PM EST Health Maintenance Due Date Last Done Comments Zoster Vaccines (1 of 2) 1996 COLONOSCOPY-EVERY 5 YRS AGES 18-100 06/13/2020 06/13/2015, 06/13/2015, 05/18/2010, Additional history exists COVID-19 Vaccine (2022- season) 2023 04/16/2021, 07/21/2020, 06/23/2020 Influenza Vaccine (FLU shot) (#1) 2023 03/05/2022, 04/27/2021, 01/03/2020, Additional history exists DXA Scan 04/27/2023 04/27/2021, 02/06, 08/26/2014, Additional history exists Depression Screening 03/02/2024 03/02/2023 DTaP,Tdap,and Td Vaccines (3 - Td or Tdap) 08/11/2028 08/11/2018, 01/29/2008 Pneumococcal Vaccine: 65+ Years Completed 08/09/2017, 12/01/2015, 07/29/2008 VITAMIN D LEVEL ONCE IN A LIFETIME-USE SMARTSET# [id number] Completed 05/13/2021, 09/01/2012, 01/30/2009 Albumin/Creatinine Ratio Discontinued [...] Not on filedocumented as of this encounter Visit Diagnoses Diagnosis Need for case management follow-up- Primary Diverticulitis Diverticulitis of colon (without mention of hemorrhage) Abnormal CT of the abdomen Nonspecific (abnormal) findings on radiological and other examination of abdominal area, including retroperitoneum Family history of colon cancer Family history of malignant neoplasm of gastrointestinal tract documented in this encounter Advance Directives Latest Code Status on File Code Status Date Activated Date Inactivated Comments Full Code 03/13/2023 2:20 AM 03/17/2023 6:39 PM This order reflects the patients wishes and were consensually agreed upon. Question Answer Comments Discussion of Advance Directives occurred with: Patient Care Teams Director Of Home Care Hospice Relationship Specialty Start Date End Date Manoj Weber DO [address] [place] [address] PCP - General 12/23/05 documented as of this encounter
[2023-03-24] MEDS: FLUTICASONE FUROATE 200MCG 14 PUFFS/INHALER INH SCH (20:27)
[2023-03-24] MEDS: UMECLIDINIUM/VILANTEROL 62.5/25MCG 7 PUFFS/INHALER INH SCH (20:27)
[2023-03-24] MEDS: MONTELUKAST SODIUM 10 MG TABLET PO SCH (20:28)
[2023-03-24] MEDS: ROSUVASTATIN CALCIUM 20 MG TAB PO SCH (20:29)
[2023-03-24] MEDS: CIPROFLOXACIN / D5W 400 MG/200 ML BAG IV SCH (20:32)
[2023-03-24] MEDS: ACETAMINOPHEN 325 MG TAB PO PRN (20:44)
--- OUTSIDE RECORDS SUMMARY | 2023-03-24 23:53 | External Medical Summary | Summary of Care ---
Author Name Unknown Organization [facility] Address [address] [place] [address] Phone [phone] Care Team Providers Care Dedicated Regional Driver Name Role Phone Manoj Weber DO Primary Care Provider Encounter Details Date Type Department Care Team (Late st Contact Info) Description 03/22/2023 Orders Only Family Practice [address] [place] [address] [place] [id number] Manoj Weber DO [address] [place] [address] Allergies Active Allergy Reactions Criticality Noted Date Comments Amoxicillin Itching 06/25/2022 Amoxicillin-Pot Clavulanate Itching 06/25/19 23 Salicylates 03/03/2001 Asthmatic reaction (aspirin; no food allergies) documented as of this encounter (statuses as of 03/22/2023) Medications Medication Sig Dispensed Refills Start Date End Date Status CALCIUM + D 600-200 MG-UNIT PO TABS Take by mouth at bedtime . 0 07/07/2005 Active MULTIVITAMIN PO TABS daily 0 07/07/2005 Acti ve OSTEO BI-FLEX ADV TRIPLE ST PO TABS Take by mouth at bedtime . 0 02/02/2007 Active NASAL SALINE 0.65 % NA SOLNIndications:Rehab Services Aide anita sinusitis 2 squirts each nostril morning and night and every 2-4 hrs as needed for nasal dryness or congestion 1 bottle 0 02/02/2007 Active FISH OIL 1000 MG PO CAPS One each day 0 Active MUCINEX 600 MG PO [id number]:Rehab Services Aide anita sinusitis,Allergic rhinitis 1-2 pills by mouth [...] 24 Hour (toPROL XL)Indications:Coron amy atherosclerosis of [place] coronary artery,Patent foramen ovale,HTN, goal below 130/80 [...] as of this encounter (statuses as of 03/22/2023) Active Problems Problem Noted Date Diagnosed Date [...] 06/10/2011 ASPIRIN, CONTRAINDICATED- WHEEZING 03/10/2011 Atherosclerosis of [place] co ronary artery of [place] heart without angina pectoris 03/10/2011 Overview: Cardiac catheterization 02/12/11 30-40 % proximal LAD stenosis Diagonal 70 % Obtuse marginal 50% Systolic Fctn is normal Patent foramen ovale 01/01/2011 ADVANCE DIRECTIVE INFORMATION 07/07/2005 Overview: No, Advance Directive brochure given to patient at prior appointment. documented as of this encounter (statuses as of 03/22/2023) Resolved Problems Problem Noted Date Diagnosed Date Resolved Date Encounter for examination fo r normal comparison and control in clinical research program 09/04/2018 12/10/2019 Overview: DO NOT DELETE [facility] DAY Study: Project # [id number], Funeral Home Assistant: Joe Pelletier, PhD. SUMMARY: Goal: Establish test [...] contact study staff at ; after hours Funeral Home Assistant via the [facility] digital printer operator . Please contact study team before resolving/deleting from patients problem list. Study phone number: [phone]. Diagnosis changed due to Research Module. Go to Snapshot for study details. Encounter for examination fo r normal comparison and control in clinical research program 09/04/2018 01/07/2022 Overview: DO NOT DELETE - [facility] DAY Study: Project # [id number], Funeral Home Assistant: Kahlil Augustin, MS, MPH. SUMMARY: Goal: Establish [...] contact study staff at ; after hours Funeral Home Assistant via the [facility] digital printer operator . - Please contact study team before resolving/deleting from patients problem list. Study phone number: [phone]. Diagnosis changed due to Research Module. Go to Snapshot for study details. 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 current use of ant icoagulant therapy 01/01/2011 [...] as of this encounter (statuses as of 03/22/2023) Immunizations Name Administration Dates Next Due COVID-19 [...] No 03/13/2023 documented as of this encounter Plan of Treatment Upcoming Encounters Date Type Department Care Team (Late st Contact Info) Description 04/04/2023 11:15 AM EST Imaging Radiology [address] [place] [address] 04/07/2023 1:40 PM EST Office Visit Infectious Disease, [place] [address] [place] [address] Baudilio Oates, [address] [place] [address] 04/25/2023 3:15 PM EST Office Visit General Surgery, [place] [address] [place] [address] Gigi Colby, DO [address] [place] [address] 05/04/2023 11:00 AM EST Imaging Radiology, [facility] [address] [place] [address] 06/02/2023 1:00 PM EST Nurse Only Ancillary [address] [place] [address] [address] [place] [address] [place], Nurse Annual Wellness Visit [address] [place] [address] 06/09/2023 11:30 AM EST Office Visit Allergy/Immunology [facility] [address] [place], [place] [address] Lydia Zaafr PA-C [address] [place] [address] 06/14/2023 2:30 PM EST Hospital Encounter ENDO [facility], Endoscopy Room [facility] [address] [place] [phone] Judd Adams MD [address] [place] [address] 06/14/2023 2:30 PM EST - 06/14/2023 3:00 PM EST Surgery ENDO [facility], Endoscopy Room [facility] [address] [facility] [place] [phone] Judd Adams MD [address] [place] [address] COLONOSCOPY FLEXIBLE PROXIMAL DIAGNOSTIC 07/28/2023 10:00 AM EDT Office Visit Rheumatology [facility] [address] [facility] [place], [place] [address] Devendra Shepherd CRNP [address] [facility] [place], [place] [address] Scheduled Procedures Name Priority Associated Diagnoses Date/Ti [...] D LEVEL ONCE IN A LIFETIME-USE SMARTSET# [id number] Completed 05/13/2021, 09/01/2012, 01/30/2009 Albumin/Creatinine Ratio Discontinued [...] Not on filedocumented as of this encounter Procedures Procedure Name Priority Date/Time Associated Diagnosis Comments CHEMISTRY-OUTSIDE Routine 03/21/2023 documented in this encounter Results * (ABNORMAL) CHEMISTRY-OUTSIDE (03/21/2023) Not all results display below - see scan for full detail OUTSIDE LAB (SEE SCANNED REPORT) Comment:SCAN INCLUDES-CMP,CB C CREATININE-OUTSID E LAB 0.52(A) 0.6 - 1.2 MG/DL OUTSIDE LAB (SEE SCANNED REPORT) EGFR-OUTSIDE LAB 92.8 ML/MIN OUT SIDE LAB (SEE SCANNED REPORT) POTASSIUM-OUTSIDE LAB 2.8(A) 3.5 - 5.1 MMOL/L OUTSIDE LAB (SEE SCANNED REPORT) GLUCOSE-OUTSIDE LAB 102(A) 70 - 99 MG/DL OUTSIDE LAB (SEE SCANNED REPORT) HOURS FASTING OUTSID E LAB (SEE SCANNED REPORT) TRIGLYCERIDES-OUT SIDE LAB OUTSIDE LAB (SEE SCANNED REPORT) CHOLESTEROL-OUTSI DE LAB OUTSIDE LAB (SEE SCANNED REPORT) HDL-OUTSIDE LAB OUTS EILEEN LAB (SEE SCANNED REPORT) CHOL/HDL RATIO-OUTSIDE LAB OUTSIDE LA B (SEE SCANNED REPORT) LDL (CALCULATED)-OUTS EILEEN LAB OUTSIDE LAB (SEE SCANNED REPORT) LDL (DIRECT MEASURE)-OUTSIDE LAB OUTSIDE LAB (SEE SCANNED REPORT) HEMOGLOBIN, [id number] LAB OUTSIDE LAB (SEE SCANNED REPORT) PHOSPHORUS-OUTSID E LAB OUTSIDE LAB (SEE SCANNED REPORT) PTH-OUTSIDE LAB OUTS EILEEN LAB (SEE SCANNED REPORT) MICROALBUMIN RATIO-OUTSIDE LAB OUTSIDE LA B (SEE SCANNED REPORT) PROTEIN, UA-OUTSIDE LAB OUTSIDE LAB (SEE SCANNED REPORT) HEMOGLOBIN-OUTSID E LAB 10.5(A) 12.0 - 16.0 OUTSIDE LAB (SEE SCANNED REPORT) 03/21/2023 History Per Patient LABORATORY OUTSIDE LAB (SEE SCANNED REPORT) documented in this encounter Advance Directives Latest Code Status on File Code Status Date Activated Date Inactivated Comments Full Code 03/13/2023 2:20 AM 03/17/2023 6:39 PM This order reflects the patients wishes and were consensually agreed upon. Question Answer Comments Discussion of Advance Directives occurred with: Patient Care Teams Dedicated Regional Driver Relationship Specialty Start Date End Date Manoj Weber DO [address] [place] [address] PCP - General 12/23/05 documented as of this encounter
[2023-03-25] MEDS: metroNIDAZOLE 500 MG/100 ML BAG IV SCH ×3 (01:15→17:54)
[2023-03-25] MEDS: SODIUM CHLORIDE 0.9% 1,000 ML IV SCH ×2 (01:16→10:36)
[2023-03-25 06:19] LABS: Basophils # (auto) 0.05 K/uL (0.00-0.20); Basophils % (auto) 0.9 %; Eosinophils # (auto) 0.15 K/uL (0.00-0.50); Eosinophils % (auto) 2.7 %; Hematocrit (blood only) 28.9 % (37.0-47.0); Hemoglobin 9.5 g/dl (12.0-16.0); Immature Granulocytes # (auto) 0.02 K/uL (0.01-0.20); Immature Granulocytes % (auto) 0.4 %; Lymphocytes # (auto) 1.55 K/uL (1.20-3.40); Mean Corpuscular Hemoglobin 28.7 pg (25.0-34.0); Mean Corpuscular Hgb Conc 32.9 g/dL (32.0-36.0); Mean Corpuscular Volume 87.3 fL (80.0-100.0); Mean Platelet Volume 9.8 fL (9.4-12.4); Monocytes # (auto) 0.45 K/uL (0.11-0.59); Monocytes % (auto) 8.1 %; Neutrophils # (auto) 3.31 K/uL (1.40-6.50); Neutrophils % (auto) 59.9 %; Platelet Count 317 K/uL (130-400); RDW Coefficient of Variation 14.4 % (11.5-14.5); RDW Standard Deviation 46.2 fL (36.4-46.3); Red Blood Count 3.31 M/uL (4.20-5.40); White Blood Count 5.53 K/ul (4.8-10.8)
[2023-03-25 06:44] LABS: Albumin Globulin Ratio 1.1 (0.9-2); Albumin Level 2.7 gm/dl (3.4-5.0); BUN Creatinine Ratio 3.5 (10-20); Bilirubin,Total 0.4 mg/dl (0.2-1.0); Calcium 5.8 mg/dl (8.6-10.3); Creatinine Clr Calc Pharmacy 76.9 ml/min; Est GFR (African American) 104.4 ml/min; Globulin 2.5 gm/dl (2.5-4.0); Magnesium 1.1 mg/dl (1.7-2.4); Phosphorus 2.1 mg/dl (2.5-4.9); Potassium 3.4 mmol/L (3.5-5.1); Total Protein 5.2 gm/dl (6.0-8.3)
[2023-03-25] MEDS ORDERED: STAT IV/IM STA ×2 (06:50→19:00)
[2023-03-25] MEDS: CALCIUM GLUCONATE 10% 1,000 MG in SODIUM CHLOR 0.9% MINI-B 50 ML IV SCH ×3 (07:25→08:01)
[2023-03-25] MEDS: ONDANSETRON INJ 2 MG/ML 2 ML VIAL IV PRN ×2 (07:25→15:02)
[2023-03-25] MEDS: ENOXAPARIN INJ 40 MG/0.4 ML SYR SQ SCH (07:54)
[2023-03-25] MEDS: ACETAMINOPHEN 325 MG TAB PO PRN (08:01)
[2023-03-25] MEDS: MAGNESIUM SULFATE / D5W 1 GM/100 ML BAG IV SCH ×2 (08:26→10:37)
[2023-03-25] MEDS: POTASSIUM CHLORIDE / WTR 10 MEQ/100 ML PLCT IV SCH ×4 (08:27→15:57)
--- NOTE | 2023-03-25 09:15 | Nephrology Consultation ---
Date of Consultation March 25, 2023 Assessment & Plan (1) Electrolyte disturbance: critical hypomagnesemia, critical hypocalcemia, severe hypokalemia in patient with several weeks of N/V/D abd pain in the setting of diverticular abscesses and manager terminal antibiotics, switched to ertapenem earlier this month. Her prolia dose was too far back to have any role in calcium perturbation here. She has been on high dose PPI manager terminal which can cause hypomagnesemia but not clear why this has become an issue now. suspect perturbation [id number] axis w/ low K as incidental but need more info. -stopping protonix which can contribute to low mag >> pls provide pt w/ alternative medication -continue /agree w/ slow mag -added RAMÓN labs and repeat lipase to noon draw and agree w/ running noon draw urgently >> pt is likely to need more mag and more Ca -mag, calcium, K have all been repleted this am to a degree > await updated labs PTH 439; repeat cCa 7.7, mag 1.5 >labs pending but this low Ca likely d/t severe illness versus vitamin D deficiency (not on OP supplements so not likely D resistance) >start high dose D3 and calcitriol >give more IV Ca 1 gm this evening in addition to repletion from earlier in the day as above to be completed >daily bmp, phos, mag, iCa at least and bid until consistently in safe ranges -some rhonchi on exam and will stop NS overnight History of Present Illness Reason for Consultation: hypocalcemia Requesting Physician: Dr Jacobs Attending Physician: Lauro Jacobs MD History of Present Illness 77-year-old female whom I am asked to evaluate for hypocalcemia was admitted here March 22 with outpatient hypokalemia in the setting of chronic diverticular abscess, generalized weakness, abdominal pain. This am she received 3 gm calcium gluconate, 2 gm mag and 4 x 10 mEq K riders to treat Ca 5.8 (>6.8), mag 1.1 (>1.5), K 3.4 (>3.8) <<values in parentheses are recheck levels during repletion (infusions paused for EGD). Past medical history includes hypertension, osteoarthritis, COPD, hyperlipidemia, GERD, osteoporosis on Prolia, diverticulitis. Diverticular abscess first diagnosed February 10 when she presented here with abdominal pain. She has had poor p.o., chronic nausea and vomiting, abdominal pain, diarrhea to varying degrees ever since. At her initial [facility] admission in early February, her IV antibiotics were transitioned to p.o. and she was discharged home. Then in late February she presented to PCP with worsening abdominal pain and was found to have sigmoid diverticulitis with an abscess abutting the left distal sigmoid colon and measuring 3.4 x 3.2 x 2 cm. There was also nonspecific gallbladder wall thickening and she underwent cholecystectomy on March 08. On March 12 she had worsening nausea vomiting and abdominal pain with imaging showing diverticular abscess size increased to 4.7 x 2.6 cm. Referred to [facility] for IR drainage; however neither IR nor general surgery in [place] felt that she was a candidate for intervention. She was started on ertapenem through a PICC for at least 21 days with stop date to be determined. Colonoscopy in mid April along with follow-up with general surgery for possible future elective surgery was also recommended. She endorses early satiety and poor appetite for several weeks as well as diarrhea with intermittent vomiting w/ some periumbilical abdominal pain. Denies voiding symptoms. Denies shortness of breath cough or orthopnea. No edema. Endorses chronic sinus issues. Her last prolia dose was 01/26. Underwent EGD today for eval of frequent emesis/inability to tolerate po: noted to have diffuse gastric polyposis (s/p bx), small hiatal hernia a/w small superficial ulcer and some necrotic tissue (bx'd); H pylori specimens taken as well. Currently receiving NS at 75 mL/hr. Also on bid K 40 mEq po, slow mag bid, K phos qid which she has taken when not NPO. after her EGD today she received another 1.5 K riders adn another gram of mag. pt describes near constant N, worse w/ taking po; also frequent diarrhea but constant but frequent. c/o abd pain mild BLQ. no sob, no cough; no orthopnea. no edema. no new/worrisome voiding c/o. c/o fatigue and generalized weakness, wt loss. no paresthesias or fasciculations. denies tremor Allergies Allergy/AdvReac Type Severity Reaction Status Date / Time amoxicillin Allergy Severe Itching Unverified 03/22/23 16:51 aspirin Allergy Mild wheeze Verified 03/22/23 16:51 Home Medications Medication Instructions Recorded Confirmed Type multivitamin 1 tab PO DAILY ##0 11/12/10 03/22/23 History omega 9-arl-ilc-fish oil 1,000 mg 1 cap PO DAILY ##0 11/12/10 03/22/23 History (120 mg-180 mg) capsule (Fish Oil) omeprazole 20 mg capsule,delayed 20 mg PO BID ##0 11/12/10 03/22/23 History release cholecalciferol (vitamin D3) 25 1,000 unit PO DAILY 01/25/19 03/22/23 History mcg (1,000 unit) capsule (Vitamin D3) metoprolol succinate 25 mg 25 mg PO QAM 01/25/19 03/22/23 History tablet,extended release 24 hr montelukast 10 mg tablet 10 mg PO HS 01/25/19 03/22/23 History ascorbic acid (vitamin C) 250 mg 250 mg PO QAM 06/01/19 03/22/23 History chewable tablet (Vitamin C) fluticasone propionate 50 1 spray intranasal DAILY 06/01/19 03/22/23 History mcg/actuation nasal spray,suspension (Flonase Allergy Relief) glucosamine-chondroitin 250 mg-200 1 tab PO QAM 06/01/19 03/22/23 History mg tablet (Osteo Bi-Flex) denosumab 60 mg/mL subcutaneous 60 mg subcut .[id number] 02/10/23 03/22/23 History syringe (Prolia) fluticasone fur. 200 mcg-umeclid 1 inh inhalation PM 02/10/23 03/22/23 History 62.5 mcg-vilant 25 mcg inhalat.powder (Trelegy Ellipta) rosuvastatin 20 mg tablet 20 mg PO HS 02/10/23 03/22/23 History Lactobacillus acidophilus 1 1,000 mmu cells PO DAILY #7 caps 02/14/23 03/22/23 Rx billion cell capsule cholestyramine-aspartame 4 gram 4 g PO BID@1000,2200 PRN diarrhea 02/14/23 03/22/23 Rx oral powder for susp in a packet #10 ea (Prevalite) ondansetron 4 mg disintegrating 4 mg PO DAILY PRN nausea and 10/09/23 11/14/23 Rx tablet vomiting #10 tabs Patient History Medical History Osteoporosis COPD (chronic obstructive pulmonary disease) Chronic sinusitis Asthma Diverticulitis Degenerative arthritis of knee, bilateral Trochanteric bursitis, right hip Osteoarthritis GERD (gastroesophageal reflux disease) Hyperlipidemia Hypertension Surgical History (Updated 03/25/23 @ 15:18 by Viviana Cody RN) H/O esophagogastroduodenoscopy (03/25/23) Esophagogastroduodenoscopy(Not Applicable) - Lili Alegre DO Hx laparoscopic cholecystectomy (03/08/23) Laparoscopic Cholecystectomy - Lili Alegre DO Hx of colonoscopy History of open reduction and internal fixation (ORIF) procedure RIGHT HIP Hx of sinus surgery Family History Other Family history non-contributory Social History Smoking Status: Former smoker Tobacco Type: Cigarettes Second Hand Exposure: No; Do You Dip or Chew Tobacco: No; Tobacco Cessation Education Requested by Patient: No Hx Alcohol Use: Yes Alcohol type: wine Hx Substance Use: No Preferred Language: Italian Communication Ability: Effective Quality Assurance Clerk Required: No Beliefs That Will Affect Care: None Current Living Situation: Spouse Current Living Situation Comment: lives at home w Other Information That Helps Us Care for You: Yes Feels Safe at Home: Yes Safety Concerns: Feels Safe At This Time Assistive Devices: Cane, Nebulizer and Walker Review of Systems 2 Review of Systems: All systems reviewed & are unremarkable except as noted in HPI & below Physical Exam 2 Constitutional: well developed, well nourished and + frail appearing (tired); no acute distress Eyes: EOM intact bilaterally ENMT: Ears: no external ear abnormality Nose: no external nose abnormality Mouth: + dry oral mucous membranes Neck: no nuchal rigidity Respiratory: normal respiratory effort Auscultation: + diminished lung sounds and + rhonchi Cardiovascular: RRR, no murmur, no edema Gastrointestinal (Abdomen): Inspection/Auscultation: normal bowel sounds P ercussion/Palpation: abdomen soft; abdomen nontender Musculoskeletal: Extremities: strength 5/5 throughout Skin: no rashes, warm and dry Neurologic: hull, fluent speech, axial and limb tremors; no fasciculations Psychiatric: Orientation: alert and oriented x 3 Results & Data Vital Signs (Past 12 Hours) Vital Signs Temp Pulse Pulse Resp BP Pulse Ox O2 Del Method 03/25/23 08:08 37.3 C 99 H 18 143/78 H 95 Room Air 03/25/23 07:00 90 03/25/23 05:23 36.7 C 90 18 135/70 92 Room Air 03/25/23 02:03 88 03/24/23 23:36 36.7 C 84 18 100/64 94 Room Air Laboratory Results 03/25/23 05:43 03/25/23 05:43 mag 1.1 phos 2.1 albumin 2.[address] a/p w/ con 03/22 FINDINGS: Cardiomegaly. Mild bibasilar atelectasis. Unremarkable spleen with indeterminate subcentimeter hypodensity on image 93 series 3 which is too small to characterize. Mildly atrophic pancreas. Unremarkable adrenal glands. Right renal cysts measure up to 2 cm. Renal lobulation versus a lesion of the interpolar right kidney measuring 12 mm on image 106. No hydronephrosis. Partial distention of the urinary bladder. Heterogeneous uterus with probable fundal fibroid, 1.3 cm. Atherosclerosis of the aorta. No lymphadenopathy. Prior laparoscopic cholecystectomy with decreased stranding within the renetta hepatis. Tiny hiatal hernia. No bowel obstruction. Colonic diverticulosis. There is a multiloculated abscess involving the rectosigmoid junction. A component on image 246 measures 3.2 x 3.2 cm, previously 2.6 x 4.7 cm. A component on image 266 anterior to the rectum measures 2.4 x 4.0 cm, previously 5.6 cm. A few foci of extraluminal air again noted adjacent to the rectosigmoid. Unremarkable soft tissues. Postoperative changes of the right hip. IMPRESSION: 1. Improving findings of acute sigmoid diverticulitis with multiloculated abscess adjacent to the rectosigmoid, mildly decreased in size compared to the 03/12/2023 study. 2. Postoperative changes of recent laparoscopic cholecystectomy. 3. No bowel obstruction. 4. Bilateral renal cysts with indeterminate 1.2 cm right renal lesion. Correlation with follow-up renal ultrasound recommended. 5. Additional findings as above.
[2023-03-25] MEDS: FLUTICASONE PROPIONATE NA SPR 16 GM BTL NAE SCH (09:26)
[2023-03-25] MEDS: PANTOprazole 40 MG TAB PO SCH (09:29)
[2023-03-25] MEDS: METOPROLOL SUCC 25MG EXT REL TAB PO SCH (09:29)
[2023-03-25] MEDS: ADVANCED PROBIOTIC 1250 MG CAPSULE PO SCH (09:38)
[2023-03-25] MEDS: MAGNESIUM CHLORIDE W/CALCIUM 64MG DELAYED REL TAB PO SCH ×2 (09:38→20:24)
[2023-03-25] MEDS: guaiFENesin 600 MG TABCR PO SCH ×2 (09:38→20:22)
[2023-03-25] MEDS: POTASSIUM CHLORIDE CRTAB 20 MEQ TABCR PO SCH ×2 (09:39→20:23)
[2023-03-25] MEDS: POT PHOSPHATE MONOBASIC W/ SOD TAB PO SCH ×4 (09:39→20:24)
[2023-03-25] MEDS ORDERED: ATROPINE SULFATE 0.1 MG/ML 10ML SYR IV PRN (11:36)
[2023-03-25] MEDS ORDERED: fentaNYL citrate PF 100 MCG/2 ML VIAL IV PRN (11:36)
[2023-03-25] MEDS ORDERED: ONDANSETRON INJ 2 MG/ML 2 ML VIAL IV PRN (11:36)
[2023-03-25] MEDS ORDERED: ePHEDrine sulfate 50 MG/ML AMP IV PRN (11:36)
[2023-03-25] MEDS ORDERED: ALBUT/IPRATROP 3MG/0.5MG NEB 3 ML VIAL INH STA (11:36)
[2023-03-25] MEDS: LACTATED RINGER'S 1,000 ML IV SCH (11:36)
--- NOTE | 2023-03-25 11:40 | Anesthesiology Consultation ---
Date of Service March 25, 2023 Assessment & Plan Chart Review Chart Review: Acceptable Risk for Surgery and Patient NOT seen in Pre Admission Testing Consults Requested none ASA ASA3 Proposed Anesthesia Anesthesia Type: MAC (back up GA) Risk / Benefits Reviewed With: PT / POA / Parent / Guardian, Accepts Plan and Informed Consent Obtained History Surgery Operation Date: 03/25/23 09:20 Proposed Procedures p Esophagogastroduodenoscopy - Lili Alegre DO Height/Weight Height: 5 ft 2 in Weight: 69.899 kg Allergies Allergy/AdvReac Type Severity Reaction Status Date / Time amoxicillin Allergy Severe Itching Unverified 03/22/23 16:51 aspirin Allergy Mild wheeze Verified 03/22/23 16:51 Medications Home Medications Medication Instructions Recorded Confirmed Last Taken multivitamin 1 tab PO DAILY ##0 11/12/10 03/22/23 02/10/23 omega 5-gcw-moq-fish oil 1,000 mg 1 cap PO DAILY ##0 11/12/10 03/22/23 02/10/23 (120 mg-180 mg) capsule (Fish Oil) omeprazole 20 mg capsule,delayed 20 mg PO BID ##0 11/12/10 03/22/23 02/10/23 release cholecalciferol (vitamin D3) 25 1,000 unit PO DAILY 01/25/19 03/22/23 02/10/23 mcg (1,000 unit) capsule (Vitamin D3) metoprolol succinate 25 mg 25 mg PO QAM 01/25/19 03/22/23 02/10/23 tablet,extended release 24 hr montelukast 10 mg tablet 10 mg PO HS 01/25/19 03/22/23 02/09/23 ascorbic acid (vitamin C) 250 mg 250 mg PO QAM 06/01/19 03/22/23 02/10/23 chewable tablet (Vitamin C) fluticasone propionate 50 1 spray intranasal DAILY 06/01/19 03/22/23 02/10/23 mcg/actuation nasal spray,suspension (Flonase Allergy Relief) glucosamine-chondroitin 250 mg-200 1 tab PO QAM 06/01/19 03/22/23 02/10/23 mg tablet (Osteo Bi-Flex) denosumab 60 mg/mL subcutaneous 60 mg subcut .[id number] 02/10/23 03/22/23 3 Months Ago syringe (Prolia) ~11/10/22 fluticasone fur. 200 mcg-umeclid 1 inh inhalation PM 02/10/23 03/22/23 02/09/23 62.5 mcg-vilant 25 mcg inhalat.powder (Trelegy Ellipta) rosuvastatin 20 mg tablet 20 mg PO HS 02/10/23 03/22/23 02/09/23 Lactobacillus acidophilus 1 1,000 mmu cells PO DAILY #7 caps 02/14/23 03/22/23 Unknown billion cell capsule cholestyramine-aspartame 4 gram 4 g PO BID@1000,2200 PRN diarrhea 02/14/23 03/22/23 Unknown oral powder for susp in a packet #10 ea (Prevalite) ondansetron 4 mg disintegrating 4 mg PO DAILY PRN nausea and 02/14/23 03/22/23 Unknown tablet vomiting #10 tabs Active Medications Generic Name Dose Route Start Last Admin Trade Name Freq PRN Reason Stop Dose Admin Acetaminophen 650 mg 03/22/23 21:23 03/25/23 08:01 Acetaminophen 325 Mg Tab PO 04/21/23 21:22 650 mg Q4H PRN Administration Pain or Fever Enoxaparin Sodium 40 mg 03/23/23 09:00 03/25/23 07:54 Enoxaparin Inj 40 Mg/0.4 Ml Syr SQ 04/22/23 08:59 Not Given QAM ALFREDA Fluticasone Furoate 1 puffs 03/22/23 23:00 03/24/23 20:27 Fluticasone Furoate 200mcg 14 Puffs/Inhaler INH 04/21/23 22:59 1 puffs HS ALFREDA Administration Fluticasone Propionate 1 sprays 03/23/23 09:00 03/25/23 09:26 Fluticasone Propionate Na Spr 16 Gm Btl ERIKA 04/22/23 08:59 1 sprays DAILY ALFREDA Administration Guaifenesin 600 mg 03/22/23 22:50 03/25/23 09:38 Guaifenesin 600 Mg Tabcr PO 04/21/23 22:49 Not Given Q12 ALFREDA Sodium Chloride 1,000 mls @ 125 mls/hr 03/22/23 18:30 03/25/23 10:37 Nss IV 04/21/23 18:29 0 mls/hr .Q8H ALFREDA Infusion Ciprofloxacin 400 mg in 200 mls @ 100 mls/hr 03/24/23 21:00 03/24/23 22:43 Cipro / D5w IV 04/03/23 20:59 Infused Q12H ALFREDA Infusion Protocol Metronidazole 500 mg in 100 mls @ 100 mls/hr 03/24/23 18:00 03/25/23 10:37 Flagyl IV 04/03/23 17:59 100 mls/hr Q8H ALFREDA Administration Protocol Magnesium Sulfate/Dextrose 1 gm in 100 mls @ 50 mls/hr 03/25/23 08:30 03/25/23 11:19 Magnesium Sulfate / D5w IV 03/25/23 12:29 0 mls/hr Q2H ALFREDA Infusion Potassium Chloride 10 meq in 100 mls @ 100 mls/hr 03/25/23 08:30 03/25/23 11:19 K Alexi / Wtr IV 03/25/23 12:29 0 mls/hr Q1H ALFREDA Infusion Lactated Ringer's 1,000 mls @ 15 mls/hr 03/25/23 11:45 03/25/23 11:37 Lr IV 04/24/23 11:44 30 mls/hr .Q24H ALFREDA Infusion Lactobacillus Acidophilus 2 cap 03/23/23 18:30 03/25/23 09:38 Advanced Probiotic 1250 Mg Capsule PO 04/22/23 18:29 Not Given DAILY ALFREDA Magnesium Chloride 64 mg 03/24/23 11:45 03/25/23 09:38 Magnesium Chloride W/Calcium 64mg Delayed Rel Tab PO 04/23/23 11:44 Not Given BID ALFREDA Metoprolol Succinate 25 mg 03/23/23 09:00 03/25/23 09:29 Metoprolol Succ 25mg Ext Rel Tab PO 04/22/23 08:59 25 mg QAM ALFREDA Administration Montelukast Sodium 10 mg 03/22/23 22:50 03/24/23 20:28 Montelukast Sodium 10 Mg Tablet PO 04/21/23 22:49 10 mg HS ALFREDA Administration Ondansetron HCl 4 mg 03/23/23 08:16 03/25/23 07:25 Ondansetron Inj 2 Mg/Ml 2 Ml Vial IV 04/22/23 08:15 4 mg Q4H PRN Administration Nausea Pantoprazole Sodium 40 mg 03/23/23 09:00 03/25/23 09:29 Pantoprazole 40 Mg Tab PO 04/22/23 08:59 40 mg BID ALFREDA Administration Potassium Chloride 40 meq 03/24/23 11:30 03/25/23 09:39 Potassium Chloride Crtab 20 Meq Tabcr PO 04/23/23 11:29 Not Given BID ALFREDA Potassium Phosphate 2 tab 03/24/23 11:45 03/25/23 09:39 Pot Phosphate Monobasic W/ Sod Tab PO 04/23/23 11:44 Not Given QID ALFREDA Promethazine HCl 25 mg 03/22/23 20:42 03/24/23 17:37 Promethazine Hcl 25 Mg Tab PO 04/21/23 20:41 25 mg Q6H PRN Administration Nausea And Vomiting Rosuvastatin Calcium 20 mg 03/22/23 22:50 03/24/23 20:29 Rosuvastatin Calcium 20 Mg Tab PO 04/21/23 22:49 20 mg HS ALFREDA Administration Umeclidinium/Vilanterol 1 puffs 03/22/23 23:00 03/24/23 20:27 Umeclidinium/Vilanterol 62.5/25mcg 7 Puffs/Inhaler INH 04/21/23 22:59 1 puffs HS ALFREDA Administration NPO Date Last Intake of Fluids: 03/24/23 Time Last Intake of Fluids: 21:00 Last Intake of Fluids Comment: pt states had sips of water this am with medications Date Last Intake of Solids: 03/24/23 Time Last Intake of Solids: 21:00 Past Medical History Medical History Osteoporosis COPD (chronic obstructive pulmonary disease) Chronic sinusitis Asthma Diverticulitis Degenerative arthritis of knee, bilateral Trochanteric bursitis, right hip Osteoarthritis GERD (gastroesophageal reflux disease) Hyperlipidemia Hypertension Past Family History Family History Other Family history non-contributory Past Surgical History Surgical History Hx laparoscopic cholecystectomy (03/08/23) Laparoscopic Cholecystectomy - Lili Alegre DO Hx of colonoscopy History of open reduction and internal fixation (ORIF) procedure RIGHT HIP Hx of sinus surgery Past Anesthesia History No Hx of Anesthesia Complications and No Family Hx of Anesthesia Complications History of PONV No Hx of PONV and No Hx of Motion Sickness Social History Smoking Status: Former smoker Do You Dip or Chew Tobacco: No Hx Alcohol Use: Yes Alcohol type: wine alcohol intake frequency: holidays/special occasions only Hx Substance Use: No substance use type: does not use Review of Systems ROS Unobtainable: All systems reviewed & are unremarkable except as noted in HPI & below Physical Exam Vital Signs Last Vital Signs Temp 36.8 C 03/25/23 11:24 Pulse 102 H 03/25/23 11:24 Resp 20 03/25/23 11:24 BP 131/78 03/25/23 11:24 Pulse Ox 94 03/25/23 11:24 O2 Del Method Room Air 03/25/23 11:24 ENMT Mouth: + edentulous; no TMJ abnormality Thyromental Distance: > or= 3.5 Finger Breadths Mallampati Class: II Neck normal visual inspection and trachea midline; neck extension not limited Respiratory normal respiratory effort Auscultation: lungs clear to auscultation bilaterally Cardiovascular Rate/Rhythm: regular rate and regular rhythm Heart Sounds: no murmur Musculoskeletal Spine: normal cervical ROM Extremities: full ROM of extremities Neurologic moves all extremities Psychiatric Orientation: alert and oriented x 3 Testing Laboratory Results 03/25/23 05:43 03/25/23 05:43 PT 13.0 Seconds (9.0-12.0) H 03/22/23 14:30 INR 1.2 (0.9-1.1) H 03/22/23 14:30 APTT 37.3 Seconds (21.0-31.0) H 03/22/23 14:30 03/22/23 17:16 Aerobic Blood Culture - Preliminary Blood No growth in Aerobic bottle after 48 hours. Anaerobic Blood Culture - Preliminary No growth in Anaerobic bottle after 48 hours. 03/22/23 15:32 Aerobic Blood Culture - Preliminary Blood No growth in Aerobic bottle after 48 hours. Anaerobic Blood Culture - Preliminary No growth in Anaerobic bottle after 48 hours.
--- NOTE | 2023-03-25 12:11 | Hospitalist Progress Note ---
Date of Service March 25, 2023 Assessment & Plan (1) Colonic diverticular abscess: Plan: CT abdomen/pelvis: 1. Improving findings of acute sigmoid diverticulitis with multiloculated abscess adjacent to the rectosigmoid, mildly decreased in size compared to the 03/12/2023 study. 2. Postoperative changes of recent laparoscopic cholecystectomy. 3. No bowel obstruction. 4. Bilateral renal cysts with indeterminate 1.2 cm right renal lesion. Correl ation with follow-up renal ultrasound recommended. 5. Additional findings as above. ID consulted- continue IV Ertapenem--> changed to Cipro + Flagyl due to nausea, tolerating better Gen Surg consulted- EGD: polyps, ulceration noted Hypocalcemia, K, Mg, Phos IV repletion ordered Nephro consulted severe protein-calorie malnutrition continue IV fluids Crisis Intervention Counselor consult, [place] breakfast (2) Nausea and vomiting: Plan: likely from #1 supportive care (3) Hypomagnesemia: Plan: replaced (4) Acute hypokalemia: Plan: 2/2/ vomiting and poor PO intake. replaced (5) Hyperlipidemia: Plan: chronic, stable. Cont rosuvastatin per home regimen. (6) Chronic sinusitis: Plan: chronic, noncompliant with her typical home regimen 2/2 hospitalizations. Since she feels her mucous/post nasal drip is contributing to her nausea and vomiting issues will restart this now. Lovenox Full Disposition likely d/c home when medically stable Admission and Anticipated Discharge Date Admission Date: March 22, 2023 Subjective ff up for weakness, diverticular abscess, etc seen resting in bed, not in distress having diarrhea since last night has mild abdominal discomfort no nausea no chest pain, dyspnea, palpitations, dizziness feels weak no paresthesias no other symptoms Review of Systems Review of Systems: all noted and negative except for above Physical Exam Physical Exam: General- oriented x 3, not in distress, speaks in sentences with no effort or accessory muscle use Eyes- anicteric Neck- no JVD Lungs- clear breath sounds bilaterally, no rales/wheezes Heart- normal rate, regular rhythm; no murmurs Abdomen- normal bowel sounds, nondistended, soft, nontender Extremities- no pretibial edema, no calf tenderness Neuro- alert, oriented x 3; no gross focal neurologic deficits Skin- warm & dry Results & Data Results & Data Vital Signs (Past 12 Hours) Vital Signs Temp Pulse Pulse Pulse Resp BP Pulse Ox 03/25/23 11:42 98 H 16 98 03/25/23 11:24 36.8 C 102 H 20 131/78 94 03/25/23 08:08 37.3 C 99 H 18 143/78 H 95 03/25/23 07:00 90 03/25/23 05:23 36.7 C 90 18 135/70 92 03/25/23 02:03 88 O2 Del Method FiO2 03/25/23 11:42 Room Air 21 03/25/23 11:24 Room Air 03/25/23 08:08 Room Air 03/25/23 07:00 03/25/23 05:23 Room Air 03/25/23 02:03 all noted and reviewed including below
[2023-03-25] MEDS ORDERED: PROPOFOL IV EMULSION 10 MG/ML 20 ML VIAL IV ONE (12:17)
[2023-03-25] MEDS ORDERED: LIDOCAINE 2% 2 ML VIAL/AMP(20MG/ML) INFIL ONE (12:17)
--- NOTE | 2023-03-25 12:47 | History & Physical Bridge Note ---
Date of Service March 25, 2023 History & Physical Bridge Note I have examined the patient, reviewed the History & Physical and in the interval since the performance of the History & Physical I have noted the following changes of clinical significance: no changes noted. Patient has nausea this am. Plan for OR today for EGD. Patient presents to [facility] for procedure. The consent is on the chart and reviewed.
[2023-03-25 13:43] LABS: Albumin Level 2.8 gm/dl (3.4-5.0); BUN Creatinine Ratio 3.4 (10-20); Bilirubin,Total 0.5 mg/dl (0.2-1.0); Calcium 6.8 mg/dl (8.6-10.3); Creatinine Clr Calc Pharmacy 74.3 ml/min; Est GFR (African American) 103.2 ml/min; Globulin 2.7 gm/dl (2.5-4.0); Magnesium 1.5 mg/dl (1.7-2.4); Potassium 3.8 mmol/L (3.5-5.1); Total Protein 5.5 gm/dl (6.0-8.3)
--- NOTE | 2023-03-25 14:04 | Operative Report ---
PG Post Operative Report Pre & Post Diagnosis Operation Date: 03/25/23 09:20 Pre-Op Diagnosis: HYPOMAGNESEMIA Post-Op Diagnosis: HYPOMAGNESEMIA I identified the patient and participated in the time-out.: Yes Procedure Operation Date: 03/25/23 09:20 Actual Procedures p Esophagogastroduodenoscopy(Not Applicable) - Lili Alegre DO Surgeon Lili Alegre DO Bagging Salvager No surgical services tech Estimated Blood Loss 1 Findings Consistent with Post-Op Diagnosis Specimens Gastric polyp biopsy Antral biopsy for H. pylori Proximal stomach biopsy of an ulcer Anesthesia Type MAC Complications None Description of Procedure The patient was brought back to the operating room and placed on the operating room table and left lateral position. She was connected to oxygen and cardiac monitoring. Conscious sedation was administered a timeout was conducted. Excessive secretions were encountered. The endoscope was inserted into the oropharynx and the esophagus was intubated. The endoscope was advanced to the stomach. The mucosal folds were very prominent. Diffuse polyposis was noted from the inferior body of the stomach to the cardia. A polyp in the mid body and was biopsied with a cold biopsy forceps. The specimen was placed in a labeled container sent to pathology for further analysis. The pylorus was intubated and the duodenum was examined to the second portion. There were no abnormalities in the duodenum. The endoscope was retrieved back into the stomach and an cold forceps antral biopsy was taken for H. pylori analysis. The endoscope was retroflexed in the stomach and the proximal stomach and cardia were inspected. Again diffuse polyposis was noted in this area. A small hiatal hernia was also noted. The endoscope was returned to the neutral position and slowly retrieved. In the proximal area of the stomach that appeared to be closely associated with a hiatal hernia there was a small superficial ulceration that appeared to have necrotic tissue over it. This was biopsied with a cold forceps and sent in a labeled container to pathology for further analysis. The endoscope was slowly retrieved inspecting the esophagus. The EG junction was irregular. There were no abnormalities noted in the esophagus. The endoscope was completely removed. The patient tolerated the procedure well. She was awakened from anesthesia and transferred to recovery in stable condition I attest to the content of the Intraoperative Record and any orders documented therein. Any exceptions are noted below.
--- NOTE | 2023-03-25 14:22 | Anesthesiology Progress Note ---
Date of Service March 25, 2023 Anesthesia Post Procedure Vital Signs Vital Signs: Temp Pulse Pulse Pulse Resp BP Pulse Ox 03/25/23 14:10 87 18 133/64 95 03/25/23 14:00 36.0 C L 92 H 20 112/56 L 93 03/25/23 11:42 98 H 16 98 03/25/23 11:24 36.8 C 102 H 20 131/78 94 03/25/23 09:00 03/25/23 08:08 37.3 C 99 H 18 143/78 H 95 03/25/23 07:00 90 03/25/23 05:23 36.7 C 90 18 135/70 92 03/25/23 02:03 88 03/24/23 23:36 36.7 C 84 18 100/64 94 03/24/23 19:25 36.7 C 92 H 18 115/70 94 03/24/23 16:18 84 O2 Del Method FiO2 03/25/23 14:10 Room Air 03/25/23 14:00 Room Air 03/25/23 11:42 Room Air 21 03/25/23 11:24 Room Air 03/25/23 09:00 Room Air 03/25/23 08:08 Room Air 03/25/23 07:00 03/25/23 05:23 Room Air 03/25/23 02:03 03/24/23 23:36 Room Air 03/24/23 19:25 Room Air 03/24/23 16:18 Transfer of Care Handoff Completed per policy Notes Mental Status: alert / awake / arousable Patient Amnestic to Procedure: Yes Nausea / Vomiting: adequately controlled Pain: adequately controlled Airway Patency, RR, SpO2: stable & adequate BP & HR: stable & adequate Hydration State: stable & adequate Anesthetic Complications: no major complications apparent and Pt Satisfied with anesthetic care
--- NOTE | 2023-03-25 15:24 | Electrocardiogram Report ---
Test Reason : Blood Pressure : / mmHG Vent. Rate : 088 BPM Atrial Rate : 088 BPM P-R Int : 116 ms QRS Dur : 076 ms QT Int : 412 ms P-R-T Axes : 070 -04 -07 degrees QTc Int : 498 ms Poor data quality, interpretation may be adversely affected Normal sinus rhythm Low voltage QRS ST depression in Anterolateral leads T-wave inversion in Anteroseptal leads Abnormal ECG When compared with ECG of 22-MAR-2023 14:23, ST depression less pronounced Confirmed by Felice Kunz ([id number]) on 03/25/2023 3:24:14 PM Referred By: REFERRED SELF Confirmed By:Felice Kunz
--- NOTE | 2023-03-25 15:37 | Electrocardiogram Report ---
Test Reason : Blood Pressure : / mmHG Vent. Rate : 091 BPM Atrial Rate : 091 BPM P-R Int : 126 ms QRS Dur : 076 ms QT Int : 396 ms P-R-T Axes : 044 -05 -10 degrees QTc Int : 487 ms Normal sinus rhythm ST depression in Anterolateral leads T-wave inversion in Anteroseptal leads Abnormal ECG When compared with ECG of 24-MAR-2023 14:01, No significant change was found Confirmed by Felice Kunz ([id number]) on 03/25/2023 3:37:17 PM Referred By: REFERRED SELF Confirmed By:Felice Kunz
[2023-03-25] MEDS ORDERED: Nursing to Pharmacy Communication SCH (18:15)
[2023-03-25] MEDS ORDERED: CALCIUM GLUCONATE 10% 1,000 MG in SODIUM CHLOR 0.9% MINI-B 50 ML IV ONE (19:00)
[2023-03-25] MEDS: CHOLECALCIFEROL 5,000 UNITS 125 MCG TAB PO SCH (20:20)
[2023-03-25] MEDS: CALCITRIOL 0.25 MCG CAPSULE PO SCH (20:21)
[2023-03-25] MEDS: MONTELUKAST SODIUM 10 MG TABLET PO SCH (20:23)
[2023-03-25] MEDS: ROSUVASTATIN CALCIUM 20 MG TAB PO SCH (20:23)
[2023-03-25] MEDS: UMECLIDINIUM/VILANTEROL 62.5/25MCG 7 PUFFS/INHALER INH SCH (20:26)
[2023-03-25] MEDS: FLUTICASONE FUROATE 200MCG 14 PUFFS/INHALER INH SCH (20:26)
[2023-03-25] MEDS: FAMOTIDINE 20 MG in SYRINGE 3 ML IV SCH (20:29)
[2023-03-26] MEDS: metroNIDAZOLE 500 MG/100 ML BAG IV SCH ×3 (03:10→17:26)
[2023-03-26 05:06] LABS: Basophils # (auto) 0.03 K/uL (0.00-0.20); Basophils % (auto) 0.6 %; Eosinophils # (auto) 0.13 K/uL (0.00-0.50); Eosinophils % (auto) 2.7 %; Hematocrit (blood only) 27.5 % (37.0-47.0); Immature Granulocytes # (auto) 0.01 K/uL (0.01-0.20); Immature Granulocytes % (auto) 0.2 %; Lymphocytes # (auto) 1.39 K/uL (1.20-3.40); Lymphocytes % (auto) 28.4 %; Mean Corpuscular Hemoglobin 28.3 pg (25.0-34.0); Mean Corpuscular Hgb Conc 32.7 g/dL (32.0-36.0); Mean Corpuscular Volume 86.5 fL (80.0-100.0); Mean Platelet Volume 9.8 fL (9.4-12.4); Monocytes # (auto) 0.46 K/uL (0.11-0.59); Monocytes % (auto) 9.4 %; Neutrophils # (auto) 2.87 K/uL (1.40-6.50); Neutrophils % (auto) 58.7 %; Platelet Count 280 K/uL (130-400); RDW Coefficient of Variation 14.4 % (11.5-14.5); RDW Standard Deviation 45.2 fL (36.4-46.3); Red Blood Count 3.18 M/uL (4.20-5.40); White Blood Count 4.89 K/ul (4.8-10.8)
[2023-03-26 05:33] LABS: Albumin Level 2.5 gm/dl (3.4-5.0); Anion Gap 6 (3-11); Bilirubin,Total 0.5 mg/dl (0.2-1.0); Calcium 6.2 mg/dl (8.6-10.3); Carbon Dioxide 25 mmol/L (21-32); Chloride 111 mmol/L (98-107); Magnesium 1.4 mg/dl (1.7-2.4); Potassium 3.6 mmol/L (3.5-5.1); Sodium 142 mmol/L (136-145)
[2023-03-26 05:44] LABS: Alanine Aminotransferase 8 U/L (7-52); Alkaline Phosphatase 60 U/L (34-104); Aspartate Aminotransferase 16 U/L (13-39); Blood Urea Nitrogen < 2 mg/dl (6-23); Creatinine Clr Calc Pharmacy 78.3 ml/min; Est GFR (Non-African American) 90.6 ml/min; Globulin 2.5 gm/dl (2.5-4.0); Glucose 83 mg/dl (70-99(Fasting)); Phosphorus 2.3 mg/dl (2.5-4.9)
[2023-03-26] MEDS: ONDANSETRON INJ 2 MG/ML 2 ML VIAL IV PRN ×2 (06:00→14:05)
[2023-03-26] MEDS: guaiFENesin 600 MG TABCR PO SCH ×2 (09:21→22:06)
[2023-03-26] MEDS: ADVANCED PROBIOTIC 1250 MG CAPSULE PO SCH (09:21)
[2023-03-26] MEDS: CALCITRIOL 0.25 MCG CAPSULE PO SCH (09:22)
[2023-03-26] MEDS: POT PHOSPHATE MONOBASIC W/ SOD TAB PO SCH ×4 (09:22→22:04)
[2023-03-26] MEDS: MAGNESIUM CHLORIDE W/CALCIUM 64MG DELAYED REL TAB PO SCH ×2 (09:22→22:06)
[2023-03-26] MEDS: METOPROLOL SUCC 25MG EXT REL TAB PO SCH (09:22)
[2023-03-26] MEDS: CHOLECALCIFEROL 5,000 UNITS 125 MCG TAB PO SCH (09:22)
[2023-03-26] MEDS: POTASSIUM CHLORIDE CRTAB 20 MEQ TABCR PO SCH ×2 (09:23→22:06)
[2023-03-26] MEDS: FLUTICASONE PROPIONATE NA SPR 16 GM BTL NAE SCH (09:23)
[2023-03-26] MEDS: CIPROFLOXACIN / D5W 400 MG/200 ML BAG IV SCH ×2 (09:23→22:05)
[2023-03-26] MEDS: ENOXAPARIN INJ 40 MG/0.4 ML SYR SQ SCH (09:24)
[2023-03-26] MEDS: FAMOTIDINE 20 MG in SYRINGE 3 ML IV SCH ×2 (09:30→22:13)
[2023-03-26] MEDS: LACTATED RINGER'S 1,000 ML IV SCH (12:08)
--- NOTE | 2023-03-26 12:51 | Nephrology Progress Note ---
Date of Service March 26, 2023 Assessment & Plan (1) Electrolyte disturbance: Plan: critical hypomagnesemia, critical hypocalcemia, severe hypokalemia in patient with several weeks of N/V/D abd pain in the setting of diverticular abscesses and licensed prosthetist/orthotist antibiotics, switched to ertapenem earlier this month. Her prolia dose was too far back to have any role in calcium perturbation here. She has been on high dose PPI licensed prosthetist/orthotist which can cause hypomagnesemia but not clear why this has become an issue now. suspect perturbation [id number] axis w/ low K as incidental but need more info. -stopping protonix which can contribute to low mag >> pls provide pt w/ alternative medication -continue /agree w/ slow mag -Continue to replete mag, calcium >labs pending but this low Ca likely d/t severe illness versus vitamin D deficiency (not on OP supplements so not likely D resistance) >start high dose D3 and calcitriol--Increase calcitriol yo .5mcg daily >daily bmp, phos, mag, iCa at least and bid until consistently in safe ranges Admission and Anticipated Discharge Date Admission Date: March 22, 2023 Subjective ff up for weakness, diverticular abscess, etc seen resting in bed, not in distress has mild abdominal discomfort, Had EGD with biopsies Review of Systems 2 Review of Systems: All systems reviewed & are unremarkable except as noted in HPI & below Physical Exam 2 Physical Exam: Constitutional: well developed, we ll nourished and + frail appearing ( tired); no acute d istress Eyes: EOM intact bilater ally ENMT: Ears: no external ear abnormality N ose: no external n ose abnormality M outh: + dry oral m ucous membranes Neck: no nuchal rigidity Respiratory: normal respiratory effort Auscultat ion: + diminished lung sounds and + rhonchi Cardiovascular: RRR, no murmur, no edema Gastrointestinal ( Abdomen): Inspection/Auscult ation: normal jose l sounds Percussi on/Palpation: abdo men soft; abdomen nontender Musculoskeletal: Extremities: stren gth 5/5 throughout Skin: no rashes, warm an d dry Neurologic: hull, fluent speec h, axial and limb tremors; no fascic ulations Psychiatric: Orientation: alert and oriented x 3 Results & Data Vital Signs (Past 12 Hours) Vital Signs Temp Pulse Pulse Resp BP Pulse Ox O2 Del Method 03/26/23 11:39 36.8 C 91 H 18 123/75 96 Room Air 03/26/23 07:42 36.9 C 84 18 125/78 95 Room Air 03/26/23 07:36 96 H 03/26/23 03:15 36.7 C 98 H 18 113/71 93 Room Air 03/26/23 02:45 Room Air Laboratory Results 03/26/23 04:33 03/26/23 04:33
[2023-03-26] MEDS: LOPERAMIDE HCL 2 MG CAP PO PRN (14:00)
[2023-03-26] MEDS: ACETAMINOPHEN 325 MG TAB PO PRN (15:08)
--- NOTE | 2023-03-26 16:20 | Surgery Progress Note ---
Date of Service March 26, 2023 Assessment & Plan (1) Colonic diverticular abscess: Plan: Assessment: Patient is a 71 years old female who was admitted to the hospital for: Diverticulitis with abscess. Patient is doing better. No significant abdominal pain, no nausea, no vomiting, tolerated clear diet, no fevers. Plan: Continue IV antibiotic May advance diet tomorrow Discharge plan We will follow Admission and Anticipated Discharge Date Admission Date: March 22, 2023 Subjective F/U signal diverticulitis with the intramural abscess pt feels better, no significant abdominal pain, passed some liquid stool. no fever, WBC 4.8. Physical Exam Constitutional: WD/WN, vitals as above Eyes: PERRL, conjunctivae normal, anicteric sclerae Neck: trachea midline, no thyromegaly Respiratory: normal respiratory effort, lungs clear to auscultation Cardiovascular: RRR, no murmur, no edema Gastrointestinal (Abdomen): soft, no significant tenderness at abdomen, no distend, BS +. Neurologic: patellar DTR's 2+ bilat, sensation intact Psychiatric: A+Ox3, euthymic affect Results & Data Vital Signs (Past 12 Hours) Vital Signs Temp Pulse Pulse Resp BP Pulse Ox O2 Del Method 03/26/23 15:26 99 H 03/26/23 15:21 37.2 C 90 20 122/74 94 Room Air 03/26/23 11:39 36.8 C 91 H 18 123/75 96 Room Air 03/26/23 07:42 36.9 C 84 18 125/78 95 Room Air 03/26/23 07:36 96 H Laboratory Results Lab Results 03/22/23 03/22/23 03/23/23 Range/Units 14:30 15:32 05:19 WBC 7.10 5.83 (4.8-10.8) K/ul RBC 3.87 L 3.73 L (4.20-5.40) M/uL Hgb 10.8 L 10.7 L (12.0-16.0) g/dl Hct 33.0 L 32.2 L (37.0-47.0) % MCV 85.3 86.3 (80.0-100.0) fL MCH 27.9 28.7 (25.0-34.0) pg MCHC 32.7 33.2 (32.0-36.0) g/dL RDW Std Deviation 43.2 44.7 (36.4-46.3) fL RDW Coeff of Edgard 13.9 14.2 (11.5-14.5) % Plt Count 376 376 (130-400) K/uL MPV 9.8 9.9 (9.4-12.4) fL Immature Gran % (Auto) 0.6 % Neut % (Auto) 64.2 % Lymph % (Auto) 25.1 % [place] % (Auto) 7.5 % Eos % (Auto) 2.0 % Baso % (Auto) 0.6 % Neut # (Auto) 4.57 (1.40-6.50) K/uL Lymph # (Auto) 1.78 (1.20-3.40) K/uL [place] # (Auto) 0.53 (0.11-0.59) K/uL Eos # (Auto) 0.14 (0.00-0.50) K/uL Baso # (Auto) 0.04 (0.00-0.20) K/uL Immature Gran # (Auto) 0.04 (0.01-0.20) K/uL PT 13.0 H (9.0-12.0) Seconds INR 1.2 H (0.9-1.1) APTT 37.3 H (21.0-31.0) Seconds PTT Ratio 1.3 Sodium 140 142 (136-145) mmol/L Potassium 2.8 L 3.8 D (3.5-5.1) mmol/L Chloride 102 109 H (98-107) mmol/L Carbon Dioxide 27 24 (21-32) mmol/L Anion Gap 11 9 (3-11) BUN 6 4 L (6-23) mg/dl Creatinine 0.57 L 0.53 L (0.6-1.2) mg/dl Est Cr Clr Drug Dosing 74.4 80.5 ml/min Est GFR ( Amer) 104.4 106.9 ml/min Est GFR (Non-Af Amer) 90.0 92.2 ml/min BUN/Creatinine Ratio 10.5 7.5 L (10-20) Glucose 82 80 (70-99(Fasting)) mg/dl Lactate 0.8 (0.4-2.0) mmol/L Calcium 7.2 L 6.8 L (8.6-10.3) mg/dl Ionized Calcium (1.12-1.32) mmol/L Phosphorus 1.3 L* (2.5-4.9) mg/dl Magnesium 0.9 L* 2.2 (1.7-2.4) mg/dl Total Bilirubin 0.5 (0.2-1.0) mg/dl Direct Bilirubin 0.1 (0-0.2) mg/dl AST 39 (13-39) U/L ALT 19 (7-52) U/L Alkaline Phosphatase 71 (34-104) U/L Total Protein 6.2 (6.0-8.3) gm/dl Albumin 3.1 L (3.4-5.0) gm/dl Globulin (2.5-4.0) gm/dl Albumin/Globulin Ratio (0.9-2) Lipase 30 (11-82) U/L 25-OH Vitamin D Total (30-100) ng/ml Procalcitonin 21.06 H (0-0.5) ng/ml PTH Intact (12.0-88.0) pg/ml Stl C. diff Tox B Gene (Neg) 03/24/23 03/25/23 03/25/23 Range/Units 08:10 05:43 09:26 WBC 5.50 5.53 (4.8-10.8) K/ul RBC 3.32 L 3.31 L (4.20-5.40) M/uL Hgb 9.4 L 9.5 L (12.0-16.0) g/dl Hct 29.0 L 28.9 L (37.0-47.0) % MCV 87.3 87.3 (80.0-100.0) fL MCH 28.3 28.7 (25.0-34.0) pg MCHC 32.4 32.9 (32.0-36.0) g/dL RDW Std Deviation 46.5 H 46.2 (36.4-46.3) fL RDW Coeff of Edgard 14.5 14.4 (11.5-14.5) % Plt Count 335 317 (130-400) K/uL MPV 9.8 9.8 (9.4-12.4) fL Immature Gran % (Auto) 0.4 0.4 % Neut % (Auto) 58.5 59.9 % Lymph % (Auto) 29.5 28.0 % [place] % (Auto) 8.2 8.1 % Eos % (Auto) 2.9 2.7 % Baso % (Auto) 0.5 0.9 % Neut # (Auto) 3.22 3.31 (1.40-6.50) K/uL Lymph # (Auto) 1.62 1.55 (1.20-3.40) K/uL [place] # (Auto) 0.45 0.45 (0.11-0.59) K/uL Eos # (Auto) 0.16 0.15 (0.00-0.50) K/uL Baso # (Auto) 0.03 0.05 (0.00-0.20) K/uL Immature Gran # (Auto) 0.02 0.02 (0.01-0.20) K/uL PT (9.0-12.0) Seconds INR (0.9-1.1) APTT (21.0-31.0) Seconds PTT Ratio Sodium 142 146 H (136-145) mmol/L Potassium 3.3 L 3.4 L (3.5-5.1) mmol/L Chloride 110 H 114 H (98-107) mmol/L Carbon Dioxide 26 24 (21-32) mmol/L Anion Gap 6 8 (3-11) BUN 2 L 2 L (6-23) mg/dl Creatinine 0.53 L 0.57 L (0.6-1.2) mg/dl Est Cr Clr Drug Dosing 82.7 76.9 ml/min Est GFR ( Amer) 106.9 104.4 ml/min Est GFR (Non-Af Amer) 92.2 90.0 ml/min BUN/Creatinine Ratio 3.8 L 3.5 L (10-20) Glucose 80 86 (70-99(Fasting)) mg/dl Lactate (0.4-2.0) mmol/L Calcium 6.0 L 5.8 L* (8.6-10.3) mg/dl Ionized Calcium 0.91 L (1.12-1.32) mmol/L Phosphorus 1.7 L 2.1 L (2.5-4.9) mg/dl Magnesium 1.3 L 1.1 L (1.7-2.4) mg/dl Total Bilirubin 0.4 0.4 (0.2-1.0) mg/dl Direct Bilirubin (0-0.2) mg/dl AST 21 19 (13-39) U/L ALT 13 11 (7-52) U/L Alkaline Phosphatase 60 58 (34-104) U/L Total Protein 5.3 L 5.2 L (6.0-8.3) gm/dl Albumin 2.7 L 2.7 L (3.4-5.0) gm/dl Globulin 2.6 2.5 (2.5-4.0) gm/dl Albumin/Globulin Ratio 1.0 1.1 (0.9-2) Lipase (11-82) U/L 25-OH Vitamin D Total (30-100) ng/ml Procalcitonin (0-0.5) ng/ml PTH Intact (12.0-88.0) pg/ml Stl C. diff Tox B Gene (Neg) 03/25/23 03/25/23 03/26/23 Range/Units 12:59 Unknown 04:33 WBC 4.89 (4.8-10.8) K/ul RBC 3.18 L (4.20-5.40) M/uL Hgb 9.0 L (12.0-16.0) g/dl Hct 27.5 L (37.0-47.0) % MCV 86.5 (80.0-100.0) fL MCH 28.3 (25.0-34.0) pg MCHC 32.7 (32.0-36.0) g/dL RDW Std Deviation 45.2 (36.4-46.3) fL RDW Coeff of Edgard 14.4 (11.5-14.5) % Plt Count 280 (130-400) K/uL MPV 9.8 (9.4-12.4) fL Immature Gran % (Auto) 0.2 % Neut % (Auto) 58.7 % Lymph % (Auto) 28.4 % Gre[place] % (Auto) 9.4 % Eos % (Auto) 2.7 % Baso % (Auto) 0.6 % Neut # (Auto) 2.87 (1.40-6.50) K/uL Lymph # (Auto) 1.39 (1.20-3.40) K/uL [place]er # (Auto) 0.46 (0.11-0.59) K/uL Eos # (Auto) 0.13 (0.00-0.50) K/uL Baso # (Auto) 0.03 (0.00-0.20) K/uL Immature Gran # (Auto) 0.01 (0.01-0.20) K/uL PT (9.0-12.0) Seconds INR (0.9-1.1) APTT (21.0-31.0) Seconds PTT Ratio Sodium 143 142 (136-145) mmol/L Potassium 3.8 3.6 (3.5-5.1) mmol/L Chloride 112 H 111 H (98-107) mmol/L Carbon Dioxide 21 25 (21-32) mmol/L Anion Gap 10 6 (3-11) BUN 2 L < 2 L (6-23) mg/dl Creatinine 0.59 L 0.56 L (0.6-1.2) mg/dl Est Cr Clr Drug Dosing 74.3 78.3 ml/min Est GFR ( Amer) 103.2 105.0 ml/min Est GFR (Non-Af Amer) 89.0 90.6 ml/min BUN/Creatinine Ratio 3.4 L TNP (10-20) Glucose 88 83 (70-99(Fasting)) mg/dl Lactate (0.4-2.0) mmol/L Calcium 6.8 L 6.2 L (8.6-10.3) mg/dl Ionized Calcium (1.12-1.32) mmol/L Phosphorus 2.0 L 2.3 L (2.5-4.9) mg/dl Magnesium 1.5 L 1.4 L (1.7-2.4) mg/dl Total Bilirubin 0.5 0.5 (0.2-1.0) mg/dl Direct Bilirubin (0-0.2) mg/dl AST 19 16 (13-39) U/L ALT 11 8 (7-52) U/L Alkaline Phosphatase 68 60 (34-104) U/L Total Protein 5.5 L 5.0 L (6.0-8.3) gm/dl Albumin 2.8 L 2.5 L (3.4-5.0) gm/dl Globulin 2.7 2.5 (2.5-4.0) gm/dl Albumin/Globulin Ratio 1.0 1.0 (0.9-2) Lipase 13 (11-82) U/L 25-OH Vitamin D Total 59.6 (30-100) ng/ml Procalcitonin (0-0.5) ng/ml PTH Intact 439.9 H (12.0-88.0) pg/ml Stl C. diff Tox B Gene Negative Cdiff Gene (Neg) Diagnostic Findings ABDOMEN AND PELVIS CT WITH IV CONTRAST CT DOSE: 949.27 mGy.cm HISTORY: Acute generalized abdominal pain diverticulitis and abdscess TECHNIQUE: Multiaxial CT images of the abdomen and pelvis were performed following the IV administration of 93 cc of Optiray, A dose lowering technique was utilized adhering to the principles of ALARA. COMPARISON STUDY: CT 03/12/2023 FINDINGS: Cardiomegaly. Mild bibasilar atelectasis. Unremarkable spleen with indeterminate subcentimeter hypodensity on image 93 series 3 which is too small to characterize. Mildly atrophic pancreas. Unremarkable adrenal glands. Right renal cysts measure up to 2 cm. Renal lobulation versus a lesion of the interpolar right kidney measuring 12 mm on image 106. No hydronephrosis. Partial distention of the urinary bladder. Heterogeneous uterus with probable fundal fibroid, 1.3 cm. Atherosclerosis of the aorta. No lymphadenopathy. Prior laparoscopic cholecystectomy with decreased stranding within the renetta hepatis. Tiny hiatal hernia. No bowel obstruction. Colonic diverticulosis. There is a multiloculated abscess involving the rectosigmoid junction. A component on image 246 measures 3.2 x 3.2 cm, previously 2.6 x 4.7 cm. A component on image 266 anterior to the rectum measures 2.4 x 4.0 cm, previously 5.6 cm. A few foci of extraluminal air again noted adjacent to the rectosigmoid. Unremarkable soft tissues. Postoperative changes of the right hip. IMPRESSION: 1. Improving findings of acute sigmoid diverticulitis with multiloculated abscess adjacent to the rectosigmoid, mildly decreased in size compared to the 03/12/2023 study. 2. Postoperative changes of recent laparoscopic cholecystectomy. 3. No bowel obstruction. 4. Bilateral renal cysts with indeterminate 1.2 cm right renal lesion. Correlation with follow-up renal ultrasound recommended. 5. Additional findings as above. ACT 112: Negative or not required by law.
[2023-03-26] MEDS: SODIUM CHLORIDE 0.9% 1,000 ML IV SCH (16:27)
--- NOTE | 2023-03-26 18:32 | Hospitalist Progress Note ---
Date of Service March 26, 2023 Assessment & Plan (1) Colonic diverticular abscess: Plan: CT abdomen/pelvis: 1. Improving findings of acute sigmoid diverticulitis with multiloculated abscess adjacent to the rectosigmoid, mildly decreased in size compared to the 03/12/2023 study. 2. Postoperative changes of recent laparoscopic cholecystectomy. 3. No bowel obstruction. 4. Bilateral renal cysts with indeterminate 1.2 cm right renal lesion. Correl ation with follow-up renal ultrasound recommended. 5. Additional findings as above. ID consulted- continue IV Ertapenem--> changed to Cipro + Flagyl due to nausea, tolerating better Gen Surg consulted- EGD: polyps, ulceration noted 03/26 Positive diarrhea, stool PCR negative for C. difficile Start Imodium as needed Start Bentyl as needed for stomach cramping Continue Cipro plus Flagyl day #2 Continue famotidine twice daily Monitor closely Hypocalcemia, K, Mg, Phos IV repletion ordered Nephro consulted -- Increase calcitriol Continue p.o. repletion severe protein-calorie malnutrition continue IV fluids Visual Aid Expert consult, [place] breakfast (2) Nausea and vomiting: Plan: likely from #1 supportive care (3) Hypomagnesemia: Plan: replaced (4) Acute hypokalemia: Plan: 2/2/ vomiting and poor PO intake. replaced (5) Hyperlipidemia: Plan: chronic, stable. Cont rosuvastatin per home regimen. (6) Chronic sinusitis: Plan: chronic, noncompliant with her typical home regimen 2/2 hospitalizations. Since she feels her mucous/post nasal drip is contributing to her nausea and vomiting issues will restart this now. Lovenox Full Disposition likely d/c home when medically stable Admission and Anticipated Discharge Date Admission Date: March 22, 2023 Subjective ff up for nausea and vomiting, etc. Seen resting in bed, comfortable, not in distress States that she feels better today compared to yesterday Less nausea, less diarrhea No abdominal pain No other new symptoms Updated by RN later in the day, patient having abdominal cramping and diarrhea Review of Systems Review of Systems: all noted and negative except for above Physical Exam Physical Exam: General- oriented x 3, not in distress, speaks in sentences with no effort or accessory muscle use Eyes- anicteric Neck- no JVD Lungs- clear breath sounds bilaterally, no rales/wheezes Heart- normal rate, regular rhythm; no murmurs Abdomen- normal bowel sounds, nondistended, soft, nontender Extremities- no pretibial edema, no calf tenderness Neuro- alert, oriented x 3; no gross focal neurologic deficits Skin- warm & dry Results & Data Results & Data Vital Signs (Past 12 Hours) Vital Signs Temp Pulse Pulse Resp BP Pulse Ox O2 Del Method 03/26/23 15:26 99 H 03/26/23 15:21 37.2 C 90 20 122/74 94 Room Air 03/26/23 11:39 36.8 C 91 H 18 123/75 96 Room Air 03/26/23 07:42 36.9 C 84 18 125/78 95 Room Air 03/26/23 07:36 96 H all noted and reviewed including below
[2023-03-26] MEDS ORDERED: STAT IV/IM STA (19:15)
[2023-03-26] MEDS: CALCIUM GLUCONATE 10% 1,000 MG in SODIUM CHLOR 0.9% MINI-B 50 ML IV SCH ×2 (22:03→22:21)
[2023-03-26] MEDS: MONTELUKAST SODIUM 10 MG TABLET PO SCH (22:07)
[2023-03-26] MEDS: ROSUVASTATIN CALCIUM 20 MG TAB PO SCH (22:07)
[2023-03-26] MEDS: UMECLIDINIUM/VILANTEROL 62.5/25MCG 7 PUFFS/INHALER INH SCH (22:08)
[2023-03-26] MEDS: FLUTICASONE FUROATE 200MCG 14 PUFFS/INHALER INH SCH (22:08)
[2023-03-27] MEDS: DICYCLOMINE HCL 20 MG TAB PO PRN (00:16)
[2023-03-27] MEDS: metroNIDAZOLE 500 MG/100 ML BAG IV SCH ×3 (01:40→18:15)
[2023-03-27 05:33] LABS: Basophils # (auto) 0.03 K/uL (0.00-0.20); Basophils % (auto) 0.5 %; Eosinophils # (auto) 0.12 K/uL (0.00-0.50); Eosinophils % (auto) 2.1 %; Hematocrit (blood only) 29.3 % (37.0-47.0); Hemoglobin 9.3 g/dl (12.0-16.0); Immature Granulocytes # (auto) 0.07 K/uL (0.01-0.20); Immature Granulocytes % (auto) 1.2 %; Lymphocytes # (auto) 1.33 K/uL (1.20-3.40); Lymphocytes % (auto) 23.5 %; Mean Corpuscular Hemoglobin 27.9 pg (25.0-34.0); Mean Corpuscular Hgb Conc 31.7 g/dL (32.0-36.0); Mean Platelet Volume 9.9 fL (9.4-12.4); Monocytes # (auto) 0.53 K/uL (0.11-0.59); Monocytes % (auto) 9.4 %; Neutrophils # (auto) 3.58 K/uL (1.40-6.50); Neutrophils % (auto) 63.3 %; Platelet Count 248 K/uL (130-400); RDW Coefficient of Variation 14.6 % (11.5-14.5); RDW Standard Deviation 46.5 fL (36.4-46.3); Red Blood Count 3.33 M/uL (4.20-5.40); White Blood Count 5.66 K/ul (4.8-10.8)
[2023-03-27] MEDS: SODIUM CHLORIDE 0.9% 1,000 ML IV SCH ×2 (05:42→21:09)
[2023-03-27 05:53] LABS: Albumin Globulin Ratio 1.1 (0.9-2); Albumin Level 2.7 gm/dl (3.4-5.0); BUN Creatinine Ratio 3.2 (10-20); Bilirubin,Total 0.6 mg/dl (0.2-1.0); Calcium 7.1 mg/dl (8.6-10.3); Creatinine Clr Calc Pharmacy 68.8 ml/min; Est GFR (Non-African American) 87.1 ml/min; Globulin 2.5 gm/dl (2.5-4.0); Magnesium 1.1 mg/dl (1.7-2.4); Phosphorus 3.3 mg/dl (2.5-4.9); Potassium 3.6 mmol/L (3.5-5.1); Total Protein 5.2 gm/dl (6.0-8.3)
[2023-03-27] MEDS: ONDANSETRON INJ 2 MG/ML 2 ML VIAL IV PRN ×2 (07:21→11:46)
[2023-03-27] MEDS: CIPROFLOXACIN / D5W 400 MG/200 ML BAG IV SCH ×2 (10:22→21:10)
[2023-03-27] MEDS: PROMETHAZINE HCL 25 MG TAB PO PRN (10:25)
[2023-03-27] MEDS: METOPROLOL SUCC 25MG EXT REL TAB PO SCH (10:26)
[2023-03-27] MEDS: CALCITRIOL 0.25 MCG CAPSULE PO SCH (10:26)
[2023-03-27] MEDS: MAGNESIUM CHLORIDE W/CALCIUM 64MG DELAYED REL TAB PO SCH ×2 (10:27→21:11)
[2023-03-27] MEDS: FLUTICASONE PROPIONATE NA SPR 16 GM BTL NAE SCH (10:27)
[2023-03-27] MEDS: ENOXAPARIN INJ 40 MG/0.4 ML SYR SQ SCH (10:28)
[2023-03-27] MEDS: CHOLECALCIFEROL 5,000 UNITS 125 MCG TAB PO SCH (10:28)
[2023-03-27] MEDS ORDERED: FOSAPREPITANT DIMEGLUMINE 150 MG in SODIUM CHLORIDE 0.9% 145 ML IV ONE (10:45)
[2023-03-27] MEDS: MAGNESIUM SULFATE / D5W 1 GM/100 ML BAG IV SCH ×2 (11:00→12:19)
[2023-03-27] MEDS: guaiFENesin 600 MG TABCR PO SCH ×2 (11:27→21:12)
[2023-03-27] MEDS: POTASSIUM CHLORIDE CRTAB 20 MEQ TABCR PO SCH (11:28)
[2023-03-27] MEDS: POT PHOSPHATE MONOBASIC W/ SOD TAB PO SCH ×2 (11:28→13:16)
[2023-03-27] MEDS: ADVANCED PROBIOTIC 1250 MG CAPSULE PO SCH (11:28)
--- NOTE | 2023-03-27 11:30 | Surgery Progress Note ---
Date of Service March 27, 2023 Assessment & Plan (1) Colonic diverticular abscess: Plan: Assessment: Patient is a 71 years old female who was admitted to the hospital for: Diverticulitis with abscess. Patient is doing better. No significant abdominal pain, no nausea, no vomiting, tolerated clear diet, no fevers. Plan: Continue IV antibiotic May advance diet tomorrow Discharge plan We will follow 03/27/2023 11:35 Assessment: Patient is a 71 years old female who was admitted to the hospital for: Diverticulitis with abscess. pt is stable, no worse abdominal pain, no fever, normal WBC, continue iv antibiotic, will F/U. Admission and Anticipated Discharge Date Admission Date: March 22, 2023 Subjective F/U signal diverticulitis with the intramural abscess pt has mild low abdominal pain, passed 3 BM, no bloody stool, no fever, WBC 5.6. Physical Exam Constitutional: WD/WN, vitals as above Eyes: PERRL, conjunctivae normal, anicteric sclerae Neck: trachea midline, no thyromegaly Respiratory: normal respiratory effort, lungs clear to auscultation Cardiovascular: RRR, no murmur, no edema Gastrointestinal (Abdomen): soft, mild tenderness at low abdomen, no rebound pain, no distend, BS +. Neurologic: patellar DTR's 2+ bilat, sensation intact Psychiatric: A+Ox3, euthymic affect Results & Data Vital Signs (Past 12 Hours) Vital Signs Temp Pulse Resp BP Pulse Ox O2 Del Method 03/27/23 08:08 37.0 C 96 H 18 134/77 94 Room Air 03/27/23 03:56 37.1 C 88 16 124/74 95 Room Air 03/26/23 23:50 36.7 C 97 H 16 128/76 94 Room Air Laboratory Results Lab Results 03/22/23 03/22/23 03/23/23 Range/Units 14:30 15:32 05:19 WBC 7.10 5.83 (4.8-10.8) K/ul RBC 3.87 L 3.73 L (4.20-5.40) M/uL Hgb 10.8 L 10.7 L (12.0-16.0) g/dl Hct 33.0 L 32.2 L (37.0-47.0) % MCV 85.3 86.3 (80.0-100.0) fL MCH 27.9 28.7 (25.0-34.0) pg MCHC 32.7 33.2 (32.0-36.0) g/dL RDW Std Deviation 43.2 44.7 (36.4-46.3) fL RDW Coeff of Edgard 13.9 14.2 (11.5-14.5) % Plt Count 376 376 (130-400) K/uL MPV 9.8 9.9 (9.4-12.4) fL Immature Gran % (Auto) 0.6 % Neut % (Auto) 64.2 % Lymph % (Auto) 25.1 % [place] % (Auto) 7.5 % Eos % (Auto) 2.0 % Baso % (Auto) 0.6 % Neut # (Auto) 4.57 (1.40-6.50) K/uL Lymph # (Auto) 1.78 (1.20-3.40) K/uL [place] # (Auto) 0.53 (0.11-0.59) K/uL Eos # (Auto) 0.14 (0.00-0.50) K/uL Baso # (Auto) 0.04 (0.00-0.20) K/uL Immature Gran # (Auto) 0.04 (0.01-0.20) K/uL PT 13.0 H (9.0-12.0) Seconds INR 1.2 H (0.9-1.1) APTT 37.3 H (21.0-31.0) Seconds PTT Ratio 1.3 Sodium 140 142 (136-145) mmol/L Potassium 2.8 L 3.8 D (3.5-5.1) mmol/L Chloride 102 109 H (98-107) mmol/L Carbon Dioxide 27 24 (21-32) mmol/L Anion Gap 11 9 (3-11) BUN 6 4 L (6-23) mg/dl Creatinine 0.57 L 0.53 L (0.6-1.2) mg/dl Est Cr Clr Drug Dosing 74.4 80.5 ml/min Est GFR ( Amer) 104.4 106.9 ml/min Est GFR (Non-Af Amer) 90.0 92.2 ml/min BUN/Creatinine Ratio 10.5 7.5 L (10-20) Glucose 82 80 (70-99(Fasting)) mg/dl Lactate 0.8 (0.4-2.0) mmol/L Calcium 7.2 L 6.8 L (8.6-10.3) mg/dl Ionized Calcium (1.12-1.32) mmol/L Phosphorus 1.3 L* (2.5-4.9) mg/dl Magnesium 0.9 L* 2.2 (1.7-2.4) mg/dl Total Bilirubin 0.5 (0.2-1.0) mg/dl Direct Bilirubin 0.1 (0-0.2) mg/dl AST 39 (13-39) U/L ALT 19 (7-52) U/L Alkaline Phosphatase 71 (34-104) U/L Total Protein 6.2 (6.0-8.3) gm/dl Albumin 3.1 L (3.4-5.0) gm/dl Globulin (2.5-4.0) gm/dl Albumin/Globulin Ratio (0.9-2) Lipase 30 (11-82) U/L 25-OH Vitamin D Total (30-100) ng/ml Procalcitonin 21.06 H (0-0.5) ng/ml PTH Intact (12.0-88.0) pg/ml Stl C. diff Tox B Gene (Neg) 03/24/23 03/25/23 03/25/23 Range/Units 08:10 05:43 09:26 WBC 5.50 5.53 (4.8-10.8) K/ul RBC 3.32 L 3.31 L (4.20-5.40) M/uL Hgb 9.4 L 9.5 L (12.0-16.0) g/dl Hct 29.0 L 28.9 L (37.0-47.0) % MCV 87.3 87.3 (80.0-100.0) fL MCH 28.3 28.7 (25.0-34.0) pg MCHC 32.4 32.9 (32.0-36.0) g/dL RDW Std Deviation 46.5 H 46.2 (36.4-46.3) fL RDW Coeff of Edgard 14.5 14.4 (11.5-14.5) % Plt Count 335 317 (130-400) K/uL MPV 9.8 9.8 (9.4-12.4) fL Immature Gran % (Auto) 0.4 0.4 % Neut % (Auto) 58.5 59.9 % Lymph % (Auto) 29.5 28.0 % [place] % (Auto) 8.2 8.1 % Eos % (Auto) 2.9 2.7 % Baso % (Auto) 0.5 0.9 % Neut # (Auto) 3.22 3.31 (1.40-6.50) K/uL Lymph # (Auto) 1.62 1.55 (1.20-3.40) K/uL [place] # (Auto) 0.45 0.45 (0.11-0.59) K/uL Eos # (Auto) 0.16 0.15 (0.00-0.50) K/uL Baso # (Auto) 0.03 0.05 (0.00-0.20) K/uL Immature Gran # (Auto) 0.02 0.02 (0.01-0.20) K/uL PT (9.0-12.0) Seconds INR (0.9-1.1) APTT (21.0-31.0) Seconds PTT Ratio Sodium 142 146 H (136-145) mmol/L Potassium 3.3 L 3.4 L (3.5-5.1) mmol/L Chloride 110 H 114 H (98-107) mmol/L Carbon Dioxide 26 24 (21-32) mmol/L Anion Gap 6 8 (3-11) BUN 2 L 2 L (6-23) mg/dl Creatinine 0.53 L 0.57 L (0.6-1.2) mg/dl Est Cr Clr Drug Dosing 82.7 76.9 ml/min Est GFR ( Amer) 106.9 104.4 ml/min Est GFR (Non-Af Amer) 92.2 90.0 ml/min BUN/Creatinine Ratio 3.8 L 3.5 L (10-20) Glucose 80 86 (70-99(Fasting)) mg/dl Lactate (0.4-2.0) mmol/L Calcium 6.0 L 5.8 L* (8.6-10.3) mg/dl Ionized Calcium 0.91 L (1.12-1.32) mmol/L Phosphorus 1.7 L 2.1 L (2.5-4.9) mg/dl Magnesium 1.3 L 1.1 L (1.7-2.4) mg/dl Total Bilirubin 0.4 0.4 (0.2-1.0) mg/dl Direct Bilirubin (0-0.2) mg/dl AST 21 19 (13-39) U/L ALT 13 11 (7-52) U/L Alkaline Phosphatase 60 58 (34-104) U/L Total Protein 5.3 L 5.2 L (6.0-8.3) gm/dl Albumin 2.7 L 2.7 L (3.4-5.0) gm/dl Globulin 2.6 2.5 (2.5-4.0) gm/dl Albumin/Globulin Ratio 1.0 1.1 (0.9-2) Lipase (11-82) U/L 25-OH Vitamin D Total (30-100) ng/ml Procalcitonin (0-0.5) ng/ml PTH Intact (12.0-88.0) pg/ml Stl C. diff Tox B Gene (Neg) 03/25/23 03/25/23 03/26/23 Range/Units 12:59 Unknown 04:33 WBC 4.89 (4.8-10.8) K/ul RBC 3.18 L (4.20-5.40) M/uL Hgb 9.0 L (12.0-16.0) g/dl Hct 27.5 L (37.0-47.0) % MCV 86.5 (80.0-100.0) fL MCH 28.3 (25.0-34.0) pg MCHC 32.7 (32.0-36.0) g/dL RDW Std Deviation 45.2 (36.4-46.3) fL RDW Coeff of Edgard 14.4 (11.5-14.5) % Plt Count 280 (130-400) K/uL MPV 9.8 (9.4-12.4) fL Immature Gran % (Auto) 0.2 % Neut % (Auto) 58.7 % Lymph % (Auto) 28.4 % [place] % (Auto) 9.4 % Eos % (Auto) 2.7 % Baso % (Auto) 0.6 % Neut # (Auto) 2.87 (1.40-6.50) K/uL Lymph # (Auto) 1.39 (1.20-3.40) K/uL [place] # (Auto) 0.46 (0.11-0.59) K/uL Eos # (Auto) 0.13 (0.00-0.50) K/uL Baso # (Auto) 0.03 (0.00-0.20) K/uL Immature Gran # (Auto) 0.01 (0.01-0.20) K/uL PT (9.0-12.0) Seconds INR (0.9-1.1) APTT (21.0-31.0) Seconds PTT Ratio Sodium 143 142 (136-145) mmol/L Potassium 3.8 3.6 (3.5-5.1) mmol/L Chloride 112 H 111 H (98-107) mmol/L Carbon Dioxide 21 25 (21-32) mmol/L Anion Gap 10 6 (3-11) BUN 2 L < 2 L (6-23) mg/dl Creatinine 0.59 L 0.56 L (0.6-1.2) mg/dl Est Cr Clr Drug Dosing 74.3 78.3 ml/min Est GFR ( Amer) 103.2 105.0 ml/min Est GFR (Non-Af Amer) 89.0 90.6 ml/min BUN/Creatinine Ratio 3.4 L TNP (10-20) Glucose 88 83 (70-99(Fasting)) mg/dl Lactate (0.4-2.0) mmol/L Calcium 6.8 L 6.2 L (8.6-10.3) mg/dl Ionized Calcium (1.12-1.32) mmol/L Phosphorus 2.0 L 2.3 L (2.5-4.9) mg/dl Magnesium 1.5 L 1.4 L (1.7-2.4) mg/dl Total Bilirubin 0.5 0.5 (0.2-1.0) mg/dl Direct Bilirubin (0-0.2) mg/dl AST 19 16 (13-39) U/L ALT 11 8 (7-52) U/L Alkaline Phosphatase 68 60 (34-104) U/L Total Protein 5.5 L 5.0 L (6.0-8.3) gm/dl Albumin 2.8 L 2.5 L (3.4-5.0) gm/dl Globulin 2.7 2.5 (2.5-4.0) gm/dl Albumin/Globulin Ratio 1.0 1.0 (0.9-2) Lipase 13 (11-82) U/L 25-OH Vitamin D Total 59.6 (30-100) ng/ml Procalcitonin (0-0.5) ng/ml PTH Intact 439.9 H (12.0-88.0) pg/ml Stl C. diff Tox B Gene Negative Cdiff Gene (Neg) 03/27/23 Range/Units 04:45 WBC 5.66 (4.8-10.8) K/ul RBC 3.33 L (4.20-5.40) M/uL Hgb 9.3 L (12.0-16.0) g/dl Hct 29.3 L (37.0-47.0) % MCV 88.0 (80.0-100.0) fL MCH 27.9 (25.0-34.0) pg MCHC 31.7 L (32.0-36.0) g/dL RDW Std Deviation 46.5 H (36.4-46.3) fL RDW Coeff of Edgard 14.6 H (11.5-14.5) % Plt Count 248 (130-400) K/uL MPV 9.9 (9.4-12.4) fL Immature Gran % (Auto) 1.2 % Neut % (Auto) 63.3 % Lymph % (Auto) 23.5 % [place] % (Auto) 9.4 % Eos % (Auto) 2.1 % Baso % (Auto) 0.5 % Neut # (Auto) 3.58 (1.40-6.50) K/uL Lymph # (Auto) 1.33 (1.20-3.40) K/uL [place] # (Auto) 0.53 (0.11-0.59) K/uL Eos # (Auto) 0.12 (0.00-0.50) K/uL Baso # (Auto) 0.03 (0.00-0.20) K/uL Immature Gran # (Auto) 0.07 (0.01-0.20) K/uL PT (9.0-12.0) Seconds INR (0.9-1.1) APTT (21.0-31.0) Seconds PTT Ratio Sodium 142 (136-145) mmol/L Potassium 3.6 (3.5-5.1) mmol/L Chloride 109 H (98-107) mmol/L Carbon Dioxide 25 (21-32) mmol/L Anion Gap 8 (3-11) BUN 2 L (6-23) mg/dl Creatinine 0.63 (0.6-1.2) mg/dl Est Cr Clr Drug Dosing 68.8 ml/min Est GFR ( Amer) 101.0 ml/min Est GFR (Non-Af Amer) 87.1 ml/min BUN/Creatinine Ratio 3.2 L (10-20) Glucose 89 (70-99(Fasting)) mg/dl Lactate (0.4-2.0) mmol/L Calcium 7.1 L (8.6-10.3) mg/dl Ionized Calcium (1.12-1.32) mmol/L Phosphorus 3.3 D (2.5-4.9) mg/dl Magnesium 1.1 L (1.7-2.4) mg/dl Total Bilirubin 0.6 (0.2-1.0) mg/dl Direct Bilirubin (0-0.2) mg/dl AST 13 (13-39) U/L ALT 8 (7-52) U/L Alkaline Phosphatase 62 (34-104) U/L Total Protein 5.2 L (6.0-8.3) gm/dl Albumin 2.7 L (3.4-5.0) gm/dl Globulin 2.5 (2.5-4.0) gm/dl Albumin/Globulin Ratio 1.1 (0.9-2) Lipase (11-82) U/L 25-OH Vitamin D Total (30-100) ng/ml Procalcitonin (0-0.5) ng/ml PTH Intact (12.0-88.0) pg/ml Stl C. diff Tox B Gene (Neg)
[2023-03-27] MEDS: FAMOTIDINE 20 MG in SYRINGE 3 ML IV SCH ×2 (11:50→21:15)
[2023-03-27] MEDS: ACETAMINOPHEN 325 MG TAB PO PRN (15:24)
--- NOTE | 2023-03-27 17:46 | Hospitalist Progress Note ---
Date of Service March 27, 2023 Assessment & Plan (1) Colonic diverticular abscess: Plan: CT abdomen/pelvis: 1. Improving findings of acute sigmoid diverticulitis with multiloculated abscess adjacent to the rectosigmoid, mildly decreased in size compared to the 03/12/2023 study. 2. Postoperative changes of recent laparoscopic cholecystectomy. 3. No bowel obstruction. 4. Bilateral renal cysts with indeterminate 1.2 cm right renal lesion. Correl ation with follow-up renal ultrasound recommended. 5. Additional findings as above. ID consulted- continue IV Ertapenem--> changed to Cipro + Flagyl due to nausea, tolerating better Gen Surg consulted- EGD: polyps, ulceration noted 03/26 Positive diarrhea, stool PCR negative for C. difficile Start Imodium as needed Start Bentyl as needed for stomach cramping Continue Cipro plus Flagyl day #2 Continue famotidine twice daily Monitor closely 03/27 Emend given for nausea discussed with Dr. De Jesus continue Cipro + Flagyl, supportive care Hypocalcemia, K, Mg, Phos IV repletion ordered Nephro consulted -- Increased calcitriol Continue p.o. repletion -- Ca improving K, Phos normal -- replace Mg severe protein-calorie malnutrition continue IV fluids Container Filler consult, [place] breakfast (2) Nausea and vomiting: Plan: likely from #1 supportive care (3) Hypomagnesemia: Plan: replace (4) Acute hypokalemia: Plan: 2/2/ vomiting and poor PO intake. replaced (5) Hyperlipidemia: Plan: chronic, stable. Cont rosuvastatin per home regimen. (6) Chronic sinusitis: Plan: chronic, noncompliant with her typical home regimen 2/2 hospitalizations. Since she feels her mucous/post nasal drip is contributing to her nausea and vomiting issues will restart this now. Lovenox Full Disposition likely d/c home when medically stable Admission and Anticipated Discharge Date Admission Date: March 22, 2023 Subjective ff up for diverticular abscess, etc seen resting in chair, not in distress was having nausea, dry heaves this AM improving after Emend was also having some abdominal cramping diarrhea improving no other symptoms Review of Systems Review of Systems: all noted and negative except for above Physical Exam Physical Exam: General- oriented x 3, not in distress, speaks in sentences with no effort or accessory muscle use Eyes- anicteric Neck- no JVD Lungs- clear BS BL Heart- normal rate, regular rhythm; no murmurs Abdomen- normal bowel sounds, nondistended, soft, mild LLQ tenderness Extremities- no pretibial edema, no calf tenderness Neuro- alert, oriented x 3; no gross focal neurologic deficits Skin- warm & dry Results & Data Results & Data Vital Signs (Past 12 Hours) Vital Signs Temp Pulse Pulse Resp BP Pulse Ox O2 Del Method 03/27/23 16:03 37.3 C 92 H 20 114/69 93 Room Air 03/27/23 15:00 93 H 03/27/23 11:42 37.2 C 93 H 18 128/77 94 Room Air 03/27/23 08:08 37.0 C 96 H 18 134/77 94 Room Air 03/27/23 07:00 83 all noted and reviewed including below
[2023-03-27] MEDS: MONTELUKAST SODIUM 10 MG TABLET PO SCH (21:11)
[2023-03-27] MEDS: ROSUVASTATIN CALCIUM 20 MG TAB PO SCH (21:12)
[2023-03-27] MEDS: UMECLIDINIUM/VILANTEROL 62.5/25MCG 7 PUFFS/INHALER INH SCH (21:13)
[2023-03-27] MEDS: FLUTICASONE FUROATE 200MCG 14 PUFFS/INHALER INH SCH (21:59)
[2023-03-28] MEDS: metroNIDAZOLE 500 MG/100 ML BAG IV SCH ×3 (01:52→18:05)
[2023-03-28 05:08] LABS: Basophils # (auto) 0.03 K/uL (0.00-0.20); Basophils % (auto) 0.5 %; Eosinophils # (auto) 0.13 K/uL (0.00-0.50); Eosinophils % (auto) 2.2 %; Hematocrit (blood only) 27.5 % (37.0-47.0); Hemoglobin 8.7 g/dl (12.0-16.0); Immature Granulocytes # (auto) 0.01 K/uL (0.01-0.20); Immature Granulocytes % (auto) 0.2 %; Lymphocytes # (auto) 1.44 K/uL (1.20-3.40); Lymphocytes % (auto) 24.4 %; Mean Corpuscular Hemoglobin 28.2 pg (25.0-34.0); Mean Corpuscular Hgb Conc 31.6 g/dL (32.0-36.0); Mean Corpuscular Volume 89.3 fL (80.0-100.0); Mean Platelet Volume 9.9 fL (9.4-12.4); Monocytes # (auto) 0.52 K/uL (0.11-0.59); Monocytes % (auto) 8.8 %; Neutrophils # (auto) 3.76 K/uL (1.40-6.50); Neutrophils % (auto) 63.9 %; Platelet Count 240 K/uL (130-400); RDW Coefficient of Variation 14.6 % (11.5-14.5); RDW Standard Deviation 47.1 fL (36.4-46.3); Red Blood Count 3.08 M/uL (4.20-5.40); White Blood Count 5.89 K/ul (4.8-10.8)
[2023-03-28 05:28] LABS: Albumin Level 2.5 gm/dl (3.4-5.0); Bilirubin,Total 0.5 mg/dl (0.2-1.0); Calcium 6.7 mg/dl (8.6-10.3); Creatinine Clr Calc Pharmacy 64.7 ml/min; Est GFR (Non-African American) 85.4 ml/min; Globulin 2.4 gm/dl (2.5-4.0); Magnesium 1.5 mg/dl (1.7-2.4); Phosphorus 2.7 mg/dl (2.5-4.9); Potassium 3.5 mmol/L (3.5-5.1); Total Protein 4.9 gm/dl (6.0-8.3)
[2023-03-28] MEDS ORDERED: POTASSIUM CHLORIDE CRTAB 20 MEQ TABCR PO STA (05:59)
[2023-03-28] MEDS ORDERED: STAT IV/IM STA ×2 (06:01→09:23)
[2023-03-28] MEDS: MAGNESIUM SULFATE / D5W 1 GM/100 ML BAG IV SCH ×2 (06:17→08:24)
[2023-03-28] MEDS: CALCIUM GLUCONATE 10% 1,000 MG in SODIUM CHLOR 0.9% MINI-B 50 ML IV SCH ×2 (06:27→06:43)
[2023-03-28] MEDS: SODIUM CHLORIDE 0.9% 1,000 ML IV SCH (08:24)
[2023-03-28] MEDS: DICYCLOMINE HCL 20 MG TAB PO PRN (08:24)
[2023-03-28] MEDS: guaiFENesin 600 MG TABCR PO SCH ×2 (08:25→22:12)
[2023-03-28] MEDS: METOPROLOL SUCC 25MG EXT REL TAB PO SCH (08:25)
[2023-03-28] MEDS: CALCITRIOL 0.25 MCG CAPSULE PO SCH (08:25)
[2023-03-28] MEDS: ADVANCED PROBIOTIC 1250 MG CAPSULE PO SCH (08:25)
[2023-03-28] MEDS: CHOLECALCIFEROL 5,000 UNITS 125 MCG TAB PO SCH (08:25)
[2023-03-28] MEDS: ENOXAPARIN INJ 40 MG/0.4 ML SYR SQ SCH (08:26)
[2023-03-28] MEDS: MAGNESIUM CHLORIDE W/CALCIUM 64MG DELAYED REL TAB PO SCH ×4 (08:26→22:12)
[2023-03-28] MEDS: CIPROFLOXACIN / D5W 400 MG/200 ML BAG IV SCH ×2 (08:26→22:18)
[2023-03-28] MEDS: FLUTICASONE PROPIONATE NA SPR 16 GM BTL NAE SCH (08:26)
[2023-03-28] MEDS: FAMOTIDINE 20 MG in SYRINGE 3 ML IV SCH ×2 (08:54→22:18)
[2023-03-28] MEDS ORDERED: OPTIRAY 320 500ml IV ONE (09:07)
[2023-03-28] MEDS ORDERED: CALCIUM GLUCONATE 10% 1,000 MG in SODIUM CHLOR 0.9% MINI-B 50 ML IV ONE (09:23)
--- NOTE | 2023-03-28 09:40 | Nephrology Progress Note ---
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 Her prolia dose was too far back to have any role in calcium here. 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 stopping protonix which can contribute to low mag >> pls provide pt w/ alternative medication Ca still low even lower than yesterday. Continue Calcitriol, Cholecalciferol. Already got some iv Ca++. Will also add Oral Calcium and titrate it upwards. Looks like she needs a lot more than current dose. Also raise PO mag by a lot to 128 tid. Goal is to be able to maintain near normal electrolytes with Oral meds only. So avoid giving Iv electrolytes for Discharge planning. Daily renal panel and mag Results & Data Vital Signs (Past 12 Hours) Vital Signs Temp Pulse Pulse Pulse Resp BP Pulse Ox 03/28/23 09:19 37.6 C H 85 16 118/72 93 03/28/23 08:00 81 03/28/23 03:31 36.8 C 92 H 16 144/78 H 95 03/27/23 23:02 36.8 C 86 16 108/64 96 03/27/23 22:19 03/27/23 22:01 88 O2 Del Method 03/28/23 09:19 Room Air 03/28/23 08:00 03/28/23 03:31 Room Air 03/27/23 23:02 Room Air 03/27/23 22:19 Room Air 03/27/23 22:01
[2023-03-28] MEDS ORDERED: CALCIUM CARBONATE 1250MG TAB PO SCH (09:45)
[2023-03-28] MEDS: POTASSIUM CHLORIDE CRTAB 20 MEQ TABCR PO SCH ×2 (10:06→22:13)
[2023-03-28] MEDS: PROMETHAZINE HCL 25 MG TAB PO PRN ×2 (10:08→22:23)
--- NOTE | 2023-03-28 10:37 | CT Scan Report ---
ABDOMEN AND PELVIS CT WITH IV CONTRAST CT DOSE: 961. mGy.cm HISTORY: Follow up sigmoid abscess. TECHNIQUE: Multiaxial CT images of the abdomen and pelvis were performed following the use of intrave nous contrast. A dose lowering technique was utilized adhering to the principles of ALARA. COMPARISON STUDY: Abdomen and pelvis CT 03/22/2023. FINDINGS: Trace bilateral pleural effusions with patchy bibasilar densities. This favors atelectasis. A pneumonia could also have a similar appearance. Postoperative changes again noted within the right hip. Degenerative changes within the lumbar spine again noted. Recent cholecystectomy with mild infl ammatory change remaining at the cholecystectomy bed. This is similar to the prior study and favors p ostoperative change. Small area of focal fatty change within the left hepatic lobe adjacent to the fa lciform ligament. Mild hepatic steatosis is noted. The pancreas, spleen, and adrenal glands are unrem arkable. Multiple bilateral renal hypodense lesions are again noted. These are similar to the prior s tudy and favor cysts. No hydronephrosis. A 1.2 cm lesion within the interpolar region of the right ki dney on image 106 is concerning for solid renal mass. Calcified plaque within the normal caliber abdo osmani aorta. No retroperitoneal or pelvic lymphadenopathy. The bladder is unremarkable. A 12 mm enhan cing nodule within the uterine fundus again noted which favors a fibroid. Persistent thickening of th e distal sigmoid colon likely representing a diverticulitis. There is mild pericolonic fat stranding and presacral edema which has slightly progressed. Pericolonic multiloculated abscess at the rectosig moid junction is again noted. The dominant collection located between the rectum and uterus measures 4.8 x 2.7 cm. This previously measured 4.0 x 2.4 cm. The secondary collection on image 236 is stable in size measuring 3.2 x 3.1 cm. No new abscesses identified. No dilated loops of bowel to suggest an obstruction. IMPRESSION: 1. Above findings consistent with persistent acute sigmoid diverticulitis with a multiloculated peric olonic abscess. The dominant component of the multiloculated abscess has slightly increased in size a s described above. There has also been interval progression of the pericolonic/presacral fat strandin g. 2. Postoperative changes of recent laparoscopic cholecystectomy again noted. 3. A 1.2 cm lesion within the right kidney as described above which is concerning for a solid renal m ass. Follow-up nonemergent urology consultation recommended to exclude a renal cell carcinoma. 4. Additional findings as described above. ACT 112: Negative or not required by law. Electronically signed by: Sandip Canales M.D. 03/28/2023 10:36 AM
[2023-03-28] MEDS: CALCIUM CARBONATE 1250MG TAB PO SCH ×3 (11:02→22:13)
--- NOTE | 2023-03-28 12:23 | Gastrointestinal Consultation ---
Date of Consultation March 28, 2023 Assessment & Plan (1) Nausea and vomiting: (2) Colonic diverticular abscess: Pt is a 77 yo female seen for nausea, vomiting symptoms. Hx of cholecystitis s/p cholecystectomy 03/08/2023, diverticulitis w persistent abscess, not amendable to IR drainage given intramural collection. - PPI BID coverage - Continue IV antibx for diverticulitis and abscess - Will discuss with advanced endoscopist (Dr. Higuera) re: drainage via endoscopy Attg Add: Pt with persistent pain, nausea. TTP in LLQ on exam. Imaging reviewed, shows dumbbell shaped abscess sigmoid colon with large amount of air, increased in size. Cont abx, diet as tolerated Imaging and abscess persistence despite abx suggest that pt likely has communication between abscess and colon lumen. Consider switch abx to Zosyn. Abscess appears amenable to drainage by EUS -- please initiate [place] [facility] [place]. Given abscess size and failure of conservative management, surgery with likely temporary ostomy would be only other alternative. History of Present Illness Reason for Consultation: Nausea, vomiting Requesting Physician: Dr. Lauro Jacobs Attending Physician: Dr. Lisa Perez History of Present Illness Pt is a 77 yo female seen for persistent nausea and vomiting symptoms. Pt w hx cholecystitis s/p cholecystectomy 03/08, and has diverticulitis w persistent diverticular abscess, previously admitted [place] [facility] [place] and early this month for possible IR drainage of abscess. IR noted that collection is intramural, drainage deferred. Pt to f/u with Colorectal Surgery (Dr. Colby) on 04/25/2023. Meanwhile she is admitted back at [facility] for n/v, hypomagnesemia and hypokalemia, and CT abd/pelvis showed increased abscess size to 4.8 cm x 2.7cm. IV antibx treatment directed by Infectious Disease initially recommended Ertapenem, currently on Cipro/Flagyl. She has poor appetite and had been tried on Zofran, Phenergan and Emend. She reports no abd pain, was able to eat half of burger last night but this AM was nauseated, did not want to eat much breakfast. She is passing some flatus, did have diarrhea over weekend and had Imodium. EGD (03/25/2023 by Surgery) - gastric polyps, bx'd, stomach ulcer. Last colonoscopy 2016 - sigmoid colon diverticulosis Allergies Allergy/AdvReac Type Severity Reaction Status Date / Time amoxicillin Allergy Severe Itching Unverified 03/22/23 16:51 aspirin Allergy Mild wheeze Verified 03/22/23 16:51 Home Medications Medication Instructions Recorded Confirmed Type multivitamin 1 tab PO DAILY ##0 11/12/10 03/22/23 History omega 4-gpl-trp-fish oil 1,000 mg 1 cap PO DAILY ##0 11/12/10 03/22/23 History (120 mg-180 mg) capsule (Fish Oil) omeprazole 20 mg capsule,delayed 20 mg PO BID ##0 11/12/10 03/22/23 History release cholecalciferol (vitamin D3) 25 1,000 unit PO DAILY 01/25/19 03/22/23 History mcg (1,000 unit) capsule (Vitamin D3) metoprolol succinate 25 mg 25 mg PO QAM 01/25/19 03/22/23 History tablet,extended release 24 hr montelukast 10 mg tablet 10 mg PO HS 01/25/19 03/22/23 History ascorbic acid (vitamin C) 250 mg 250 mg PO QAM 06/01/19 03/22/23 History chewable tablet (Vitamin C) fluticasone propionate 50 1 spray intranasal DAILY 06/01/19 03/22/23 History mcg/actuation nasal spray,suspension (Flonase Allergy Relief) glucosamine-chondroitin 250 mg-200 1 tab PO QAM 06/01/19 03/22/23 History mg tablet (Osteo Bi-Flex) denosumab 60 mg/mL subcutaneous 60 mg subcut .[id number] 02/10/23 03/22/23 History syringe (Prolia) fluticasone fur. 200 mcg-umeclid 1 inh inhalation PM 02/10/23 03/22/23 History 62.5 mcg-vilant 25 mcg inhalat.powder (Trelegy Ellipta) rosuvastatin 20 mg tablet 20 mg PO HS 02/10/23 03/22/23 History Lactobacillus acidophilus 1 1,000 mmu cells PO DAILY #7 caps 02/14/23 03/22/23 Rx billion cell capsule cholestyramine-aspartame 4 gram 4 g PO BID@1000,2200 PRN diarrhea 02/14/23 03/22/23 Rx oral powder for susp in a packet #10 ea (Prevalite) ondansetron 4 mg disintegrating 4 mg PO DAILY PRN nausea and 02/14/23 03/22/23 Rx tablet vomiting #10 tabs Patient History Medical History Osteoporosis COPD (chronic obstructive pulmonary disease) Chronic sinusitis Asthma Diverticulitis Degenerative arthritis of knee, bilateral Trochanteric bursitis, right hip Osteoarthritis GERD (gastroesophageal reflux disease) Hyperlipidemia Hypertension Surgical History H/O esophagogastroduodenoscopy (03/25/23) Esophagogastroduodenoscopy(Not Applicable) - Lili Alegre DO Hx laparoscopic cholecystectomy (03/08/23) Laparoscopic Cholecystectomy - Lili Alegre DO Hx of colonoscopy History of open reduction and internal fixation (ORIF) procedure RIGHT HIP Hx of sinus surgery Family History Other Family history non-contributory Social History Smoking Status: Former smoker Tobacco Type: Cigarettes Second Hand Exposure: No; Do You Dip or Chew Tobacco: No; Tobacco Cessation Education Requested by Patient: No Hx Alcohol Use: Yes Alcohol type: wine Hx Substance Use: No Preferred Language: Bulgarian 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 Beliefs That Will Affect Care: None Current Living Situation: Spouse Current Living Situation Comment: lives at home w Other Information That Helps Us Care for You: Yes Feels Safe at Home: Yes Safety Concerns: Feels Safe At This Time Assistive Devices: Cane, Nebulizer and Walker Review of Systems Review of Systems: All systems reviewed & are unremarkable except as noted in HPI & below Physical Exam Constitutional: WD/WN, vitals as above well groomed, cooperative and comfortable Eyes: PERRL, conjunctivae normal, anicteric sclerae ENMT: external ear and nose normal, oropharynx normal Respiratory: normal respiratory effort, lungs clear to auscultation Cardiovascular: RRR, no murmur, no edema Gastrointestinal (Abdomen): Soft, TTP LLQ, BS hypoactive Skin: no rashes, warm and dry no jaundice Psychiatric: A+Ox3, euthymic affect Lymphatic: no lymphedema Results & Data Vital Signs (Past 12 Hours) Vital Signs Temp Pulse Pulse Pulse Resp BP Pulse Ox 03/28/23 11:32 36.8 C 86 15 132/82 94 03/28/23 09:19 37.6 C H 85 16 118/72 93 03/28/23 08:00 81 03/28/23 03:31 36.8 C 92 H 16 144/78 H 95 O2 Del Method 03/28/23 11:32 Room Air 03/28/23 09:19 Room Air 03/28/23 08:00 03/28/23 03:31 Room Air
--- NOTE | 2023-03-28 15:44 | Hospitalist Progress Note ---
Date of Service March 28, 2023 Assessment & Plan (1) Colonic diverticular abscess: Plan: CT abdomen/pelvis: 1. Improving findings of acute sigmoid diverticulitis with multiloculated abscess adjacent to the rectosigmoid, mildly decreased in size compared to the 03/12/2023 study. 2. Postoperative changes of recent laparoscopic cholecystectomy. 3. No bowel obstruction. 4. Bilateral renal cysts with indeterminate 1.2 cm right renal lesion. Correl ation with follow-up renal ultrasound recommended. 5. Additional findings as above. ID consulted- continue IV Ertapenem--> changed to Cipro + Flagyl due to nausea, tolerating better Gen Surg consulted- EGD: polyps, ulceration noted 03/26 Positive diarrhea, stool PCR negative for C. difficile Start Imodium as needed Start Bentyl as needed for stomach cramping Continue Cipro plus Flagyl day #2 Continue famotidine twice daily Monitor closely 03/27 Emend given for nausea discussed with Dr. De Jesus continue Cipro + Flagyl, supportive care 03/28 Patient having persistent nausea, poor appetite Requested GI evaluation Repeat CT abdomen pelvis showing slight increase in size of abscess GI discussing with advanced endoscopist for possible drainage Continue ciprofloxacin plus Flagyl, supportive care Hypocalcemia, K, Mg, Phos IV repletion ordered Nephro consulted -- Increased calcitriol Continue p.o. 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 replaced (5) Hyperlipidemia: Plan: chronic, stable. Cont rosuvastatin per home regimen. (6) Chronic sinusitis: Plan: chronic, noncompliant with her typical home regimen 2/2 hospitalizations. Since she feels her mucous/post nasal drip is contributing to her nausea and vomiting issues will restart this now. Lovenox Full Disposition likely d/c home when medically stable Admission and Anticipated Discharge Date Admission Date: March 22, 2023 Subjective Follow-up for diverticular abscess, etc. Seen resting in bed, not in distress States she does not feel too well today, still having intermittent nausea Poor appetite Diarrhea resolved no chest pain, dyspnea, palpitations, dizziness No fevers or chills Review of Systems Review of Systems: all noted and negative except for above Physical Exam Physical Exam: General- oriented x 3, not in distress, speaks in sentences with no effort or accessory muscle use Eyes- anicteric Neck- no JVD Lungs- clear breath sounds bilaterally, no rales/wheezes Heart- normal rate, regular rhythm; no murmurs Abdomen- normal bowel sounds, nondistended, soft, mild left lower quadrant tender Extremities- no pretibial edema, no calf tenderness Neuro- alert, oriented x 3; no gross focal neurologic deficits Skin- warm & dry Results & Data Results & Data Vital Signs (Past 12 Hours) Vital Signs Temp Pulse Pulse Resp BP Pulse Ox O2 Del Method 03/28/23 11:32 36.8 C 86 15 132/82 94 Room Air 03/28/23 09:19 37.6 C H 85 16 118/72 93 Room Air 03/28/23 08:00 81 all noted and reviewed including below
--- NOTE | 2023-03-28 16:15 | Surgery Progress Note ---
Date of Service March 28, 2023 Assessment & Plan (1) Colonic diverticular abscess: Plan: Repeated a CT scan today to see where we are. It appears as though the abscess is unchanged. As per the radiology read today there seems to be 2 separate components. I have discussed this read with radiology who feels as though there is likely an intramural component as well as a pericolonic component. The window seems tight for percutaneous drainage accessing the pericolonic component. The medicine team has reached out to GI for a specialized endoscopic procedure. Consideration for surgical laparoscopic washout and drainage. Attempting to preserve the patient's current connection as she would like to avoid a colostomy if not adamantly necessary. Unfortunately if there is an intramural component that is not going to drain intraluminally as expected, surgical washout and drainage will not be able to relieve this portion of the abscess and the patient only surgical option at that point time will be for partial colectomy and possible colostomy. We will follow-up with medicine and GI. Admission and Anticipated Discharge Date Admission Date: March 22, 2023 Subjective Patient seen and examined this AM. She states she did not have any nausea today this seems to be improved with Emend. Patient states she was able to eat half a hamburger and salad for dinner yesterday for the first time. She says she feels as though the diarrhea has resolved. She says she feels some occasional soreness in her abdomen but does not really have any abdominal pain. Physical Exam Constitutional: not ill appearing, not in distress and not diaphoretic Gastrointestinal (Abdomen): Abdomen is soft. Mild tenderness to palpation across the lower quadrants, suprapubic region Results & Data Vital Signs (Past 12 Hours) Vital Signs Temp Pulse Pulse Pulse Resp BP Pulse Ox 03/28/23 15:41 37.7 C H 87 16 130/76 94 03/28/23 14:00 87 03/28/23 11:32 36.8 C 86 15 132/82 94 03/28/23 09:19 37.6 C H 85 16 118/72 93 03/28/23 08:00 81 O2 Del Method 03/28/23 15:41 Room Air 03/28/23 14:00 03/28/23 11:32 Room Air 03/28/23 09:19 Room Air 03/28/23 08:00 PG Care Time/CCT Total # of Minutes Spent Total Time Spent with Patient: Total time spent is greater than 50% in coordination of care (as documented) at patient's floor/unit and/or counseling patient: Coding Level of Care Code 74211 SUB INP/OBS CARE Diagnoses Colonic diverticular abscess K57.20
[2023-03-28] MEDS: ONDANSETRON INJ 2 MG/ML 2 ML VIAL IV PRN (18:10)
[2023-03-28] MEDS: UMECLIDINIUM/VILANTEROL 62.5/25MCG 7 PUFFS/INHALER INH SCH (22:12)
[2023-03-28] MEDS: ACETAMINOPHEN 325 MG TAB PO PRN (22:12)
[2023-03-28] MEDS: FLUTICASONE FUROATE 200MCG 14 PUFFS/INHALER INH SCH (22:12)
[2023-03-28] MEDS: ROSUVASTATIN CALCIUM 20 MG TAB PO SCH (22:13)
[2023-03-28] MEDS: MONTELUKAST SODIUM 10 MG TABLET PO SCH (22:13)
[2023-03-28] MEDS: LOPERAMIDE HCL 2 MG CAP PO PRN (22:41)
[2023-03-29] MEDS: metroNIDAZOLE 500 MG/100 ML BAG IV SCH ×2 (01:34→11:13)
[2023-03-29] MEDS: ACETAMINOPHEN 325 MG TAB PO PRN ×3 (03:39→16:40)
[2023-03-29] MEDS: SODIUM CHLORIDE 0.9% 1,000 ML IV SCH ×2 (03:52→16:41)
[2023-03-29 04:32] LABS: Vitamin D 1,25 83 pg/mL (18-72); Vitamin D3,1,25 83 pg/mL
[2023-03-29 05:14] LABS: Basophils # (auto) 0.03 K/uL (0.00-0.20); Basophils % (auto) 0.5 %; Eosinophils # (auto) 0.05 K/uL (0.00-0.50); Eosinophils % (auto) 0.9 %; Hematocrit (blood only) 29.7 % (37.0-47.0); Hemoglobin 9.6 g/dl (12.0-16.0); Immature Granulocytes # (auto) 0.02 K/uL (0.01-0.20); Immature Granulocytes % (auto) 0.3 %; Lymphocytes # (auto) 1.06 K/uL (1.20-3.40); Lymphocytes % (auto) 18.1 %; Mean Corpuscular Hemoglobin 28.3 pg (25.0-34.0); Mean Corpuscular Hgb Conc 32.3 g/dL (32.0-36.0); Mean Corpuscular Volume 87.6 fL (80.0-100.0); Mean Platelet Volume 9.8 fL (9.4-12.4); Monocytes # (auto) 0.57 K/uL (0.11-0.59); Monocytes % (auto) 9.7 %; Neutrophils # (auto) 4.13 K/uL (1.40-6.50); Neutrophils % (auto) 70.5 %; Platelet Count 243 K/uL (130-400); RDW Coefficient of Variation 14.3 % (11.5-14.5); RDW Standard Deviation 45.9 fL (36.4-46.3); Red Blood Count 3.39 M/uL (4.20-5.40); White Blood Count 5.86 K/ul (4.8-10.8)
[2023-03-29 05:32] LABS: Magnesium 1.5 mg/dl (1.7-2.4)
[2023-03-29 05:37] LABS: Phosphorus 3.2 mg/dl (2.5-4.9)
[2023-03-29 08:00] VITALS: O2SAT 91
[2023-03-29] MEDS: PROMETHAZINE HCL 25 MG TAB PO PRN ×3 (08:22→15:20)
[2023-03-29] MEDS: guaiFENesin 600 MG TABCR PO SCH (08:22)
[2023-03-29] MEDS: CHOLECALCIFEROL 5,000 UNITS 125 MCG TAB PO SCH (08:23)
[2023-03-29] MEDS: METOPROLOL SUCC 25MG EXT REL TAB PO SCH (08:23)
[2023-03-29] MEDS: POTASSIUM CHLORIDE CRTAB 20 MEQ TABCR PO SCH (08:24)
[2023-03-29] MEDS: MAGNESIUM CHLORIDE W/CALCIUM 64MG DELAYED REL TAB PO SCH ×2 (08:24→14:17)
[2023-03-29] MEDS: CALCITRIOL 0.25 MCG CAPSULE PO SCH (08:24)
[2023-03-29] MEDS: CALCIUM CARBONATE 1250MG TAB PO SCH ×2 (08:24→14:18)
[2023-03-29] MEDS: DICYCLOMINE HCL 20 MG TAB PO PRN (08:25)
[2023-03-29] MEDS: CIPROFLOXACIN / D5W 400 MG/200 ML BAG IV SCH (08:27)
[2023-03-29] MEDS: FLUTICASONE PROPIONATE NA SPR 16 GM BTL NAE SCH (08:28)
[2023-03-29] MEDS: FAMOTIDINE 20 MG in SYRINGE 3 ML IV SCH (08:32)
--- NOTE | 2023-03-29 09:59 | Nephrology Progress Note ---
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 Her prolia dose was too far back to have any role in calcium here. She has been on high dose PPI long term care administrator which can cause hypomagnesemia but not clear why this has become an issue now. with her Diverticular abscess and poor PO intake and Likely Sig less GI absorption of Electrolytes etiology is GI/Nutritional. Ca still low . Continue Calcitriol, Cholecalciferol. Already got some iv Ca++. Will also add Oral Calcium and titrate it upwards. Looks like she needs a lot more than current dose. Also raise PO mag by a lot to 128 tid. Mag is 1.5 which is borderline low. Can give 2 gm iv today. Goal is to be able to maintain near normal electrolytes with Oral meds only. Daily renal panel and mag Subjective-----appetite still poor but denies nausea vomiting abdominal pain diarrhea chest pain shortness of breath. Now has Diverticular abscess which is getting bigger and Surgery evaluating patient--possible transfer to [facility]. Electrolytes are still low despite getting both p.o. and IV. labs from today is pending Physical examination-----awake alert oriented x3. Mucous membranes moist neck is supple no JVD chest bilateral clear to auscultation CVS S1-S2 regular abdomen is soft nontender extremities trace edema Results & Data Vital Signs (Past 12 Hours) Vital Signs Temp Pulse Pulse Resp BP Pulse Ox O2 Del Method 03/29/23 07:59 36.9 C 94 H 16 143/75 H 91 Room Air 03/29/23 07:00 82 03/29/23 04:10 36.8 C 102 H 18 146/90 H 93 Room Air 03/28/23 23:43 37.1 C 97 H 18 119/70 93 Room Air 03/28/23 22:00 101 H
--- NOTE | 2023-03-29 10:27 | Gastroenterology Progress Note ---
Date of Service March 29, 2023 Assessment & Plan (1) Nausea and vomiting: (2) Colonic diverticular abscess: Plan: Pt is a 77 yo female seen for nausea, vomiting symptoms. Hx of cholecystitis s/p cholecystectomy 03/08/2023, diverticulitis w persistent abscess, not amendable to IR drainage given intramural collection. - PPI BID coverage - Continue IV antibx for diverticulitis and abscess - Plan for transfer to [facility] for EUS guided drainage, along with Colorectal Surgery for possible surgical resection vs ostomy creation. This has been discussed with pt's hospitalist (Dr. Jacobs) Admission and Anticipated Discharge Date Admission Date: March 22, 2023 Subjective Pt fell yesterday. She is c/o lower abd pain, nausea, low appetite. Review of Systems Review of Systems: All systems reviewed & are unremarkable except as noted in HPI & below Physical Exam Constitutional: WD/WN, vitals as above well groomed, cooperative and comfortable Eyes: PERRL, conjunctivae normal, anicteric sclerae ENMT: external ear and nose normal, oropharynx normal Respiratory: normal respiratory effort, lungs clear to auscultation Cardiovascular: RRR, no murmur, no edema Gastrointestinal (Abdomen): TTP across lower abdomen area. Soft, BS hypoactive Skin: no rashes, warm and dry no jaundice Psychiatric: A+Ox3, euthymic affect Lymphatic: no lymphedema Results & Data Vital Signs (Past 12 Hours) Vital Signs Temp Pulse Pulse Resp BP Pulse Ox O2 Del Method 03/29/23 07:59 36.9 C 94 H 16 143/75 H 91 Room Air 03/29/23 07:00 82 03/29/23 04:10 36.8 C 102 H 18 146/90 H 93 Room Air 03/28/23 23:43 37.1 C 97 H 18 119/70 93 Room Air
[2023-03-29 10:43] LABS: BUN Creatinine Ratio 3.2 (10-20); Calcium 8.7 mg/dl (8.6-10.3); Creatinine Clr Calc Pharmacy 69.6 ml/min; Est GFR (African American) 101.5 ml/min; Est GFR (Non-African American) 87.6 ml/min; Potassium 3.5 mmol/L (3.5-5.1)
[2023-03-29] MEDS: ENOXAPARIN INJ 40 MG/0.4 ML SYR SQ SCH (11:13)
[2023-03-29] MEDS: MAGNESIUM SULFATE / D5W 1 GM/100 ML BAG IV SCH ×2 (11:19→13:03)
--- NOTE | 2023-03-29 12:32 | Surgery Progress Note ---
Date of Service March 29, 2023 Assessment & Plan (1) Colonic diverticular abscess: Plan I discussed with the patient EUS with abscess drainage this am as GI has indicated this may be an available procedure for them to use to help her avoid surgery which at this point would include a colostomy. She expresses she would prefer to do all she can to relieve this without needing a colostomy. I have also made her aware that this would require transfer to [facility] where they have the equipment to perform such a procedure. Ro agrees with transfer to attempt this procedure and transfer will be handled by her admitting team. Admission and Anticipated Discharge Date Admission Date: March 22, 2023 Subjective Patient was seen and examined this am. She says nausea is still off and on but slight. Had a fall trying to go to the restroom last night. She has now been advised not to get up without assistance and a purewick has been placed. Physical Exam Gastrointestinal (Abdomen): Abdomen remains with some tenderness. softly distended Results & Data Vital Signs (Past 12 Hours) Vital Signs Temp Pulse Pulse Resp BP Pulse Ox O2 Del Method 03/29/23 11:25 36.7 C 91 H 16 109/57 L 91 Room Air 03/29/23 09:00 Room Air 03/29/23 07:59 36.9 C 94 H 16 143/75 H 91 Room Air 03/29/23 07:00 82 03/29/23 04:10 36.8 C 102 H 18 146/90 H 93 Room Air PG Care Time/CCT Total # of Minutes Spent Total Time Spent with Patient: Total time spent is greater than 50% in coordination of care (as documented) at patient's floor/unit and/or counseling patient: Coding [place] [address] SUB INP/OBS CARE 06/02MIN Patient Type Established History Problem Focused Exam Problem Focused Diagnoses Colonic diverticular abscess K57.20
[2023-03-29 15:24] VITALS: BP 132/67; RESP 18; TEMP 98.8
[2023-03-29 16:04] VITALS: PULSE 92
--- NOTE | 2023-03-29 17:37 | Discharge Summary ---
Discharge Summary Date of Service March 29, 2023 Notes For Next Care Provider Medication Changes From Visit Please see below Admission HPI Per Admitting Provider 77 yo F presents with weakness and abdominal pain. She continues on IV ertapenem for treatment of a diverticular abscess but feels she is not getting better. She reports extreme nausea and some vomiting. She was referred to the ER with her outpatient magnesium and potassium levels being low. In the ER she has a heart rate in the 90s but is otherwise hemodynamically stable and afebrile oxygenating well on room air. In recent weeks she would been admitted to [facility] February 10 through the night for and had diverticular abscess was treated with vancomycin, cefepime and metronidazole. She was discharged on cefdinir and metronidazole and followed up with PCP on 03/03 for abdominal pain. A CT of the abdomen pelvis revealed diverticulitis of the sigmoid colon with an abscess abutting the left aspect of the distal sigmoid colon measuring 3.2 x 2.0 x 3.4 cm. The patient was sent to the emergency room at [facility]. CT also revealed nonspecific gallbladder wall thickening. She was admitted and had a cholecystectomy on 03/08. On March 12 she had worsening nausea vomiting and abdominal pain and a repeat CT of the abdomen revealed an increase in diverticular abscess size to 2.6 x 4.7 cm. General surgery was consulted and she was sent to [facility] for IR drainage. When she arrived there no acute intervention was recommended and infectious disease was consulted and she was started on ertapenem through PICC line. Specifically while at [facility], IR drainage was not recommended as the abscess was deemed unsuitable due to its intramural location. General surgery was consulted and recommended no acute intervention. A colonoscopy in 6 weeks was recommended w follow-up for general surgery with possible elective surgery down the road. As noted above infectious disease was consulted and recommended ertapenem for at least 21 days with a stop date TBD. Followup with [facility] ID was scheduled for two weeks. Will plan to consult them this admission for additional guidance. She reports early satiety, poor appetite x 1 month+ BMs have been loose at least 5 episodes per day x 5 days Notes a history of diarrhea with the diverticulitis, also. Notes vomiting and diarrhea intermittently from the diverticular disease. It doesn't seem to be a reaction to the ertapenem which she states was started right at hospital discharge on 03/17. she denies any alcohol use reports eating soup, fruit like bananas/peaches, yogurt, pudding, joe reports a dull ache below her umbilicus, doesn't know when it started no UTI symptoms she feels like mucous partly causing her vomiting reports chronic sinus congestion has not been using flonase, mucinex, nasal saline, and singulair because she is reportedly overwhelmed with her medical issues and caring for her . Admission Exam Per Admitting Provider CONSTITUTIONAL: WNWD, vitals as above, generally well-appearing, NAD EYES: normal conjunctivae, no scleral icterus ENT: external ear and nose normal, MMM NECK: trachea midline RESPIRATORY: clear to auscultation bilaterally, no crackles, rales or wheezes, normal respiratory effort CARDIOVASCULAR: regular rate and rhythm, S1 and 2 heard without murmurs, gallops or rubs, no JVD, no peripheral edema CHEST: inspection of chest was normal GASTROINTESTINAL: soft, nontender, no guarding MUSCULOSKELETAL: strength 5/5 throughout, head is normocephalic and atraumatic SKIN: warm and dry NEUROLOGIC: CN 2-12 grossly intact, no sensory deficit, normal cognition, normal speech, no tremor PSYCHIATRIC: alert cooperative and oriented to person, place and time. Euthymic mood, makes good eye contact, language grossly intact, recent and remote memory grossly intact. Principal Dx & Hospital Course #1 = Principal Diagnosis (1) Colonic diverticular abscess: CT abdomen/pelvis: 1. Improving findings of acute sigmoid diverticulitis with multiloculated abscess adjacent to the rectosigmoid, mildly decreased in size compared to the 03/12/2023 study. 2. Postoperative changes of recent laparoscopic cholecystectomy. 3. No bowel obstruction. 4. Bilateral renal cysts with indeterminate 1.2 cm right renal lesion. Correlation with follow-up renal ultrasound recommended. 5. Additional findings as above. ID consulted- continue IV Ertapenem--> changed to Cipro + Flagyl due to nausea, tolerating better Gen Surg consulted- EGD: polyps, ulceration noted 03/26 Positive diarrhea, stool PCR negative for C. difficile Start Imodium as needed Start Bentyl as needed for stomach cramping Continue Cipro plus Flagyl day #2 Continue famotidine twice daily Monitor closely 03/27 Emend given for nausea discussed with Dr. De Jesus continue Cipro + Flagyl, supportive care 03/28 Patient having persistent nausea, poor appetite Requested GI evaluation Repeat CT abdomen pelvis showing slight increase in size of abscess GI discussing with advanced endoscopist for possible drainage Continue ciprofloxacin plus Flagyl, supportive care 03/29 Discussed with GI Recommend transfer to [facility] for possible endoscopic drainage next Hypocalcemia, K, Mg, Phos IV repletion ordered Nephro consulted -- Increased calcitriol Continue p.o. repletion -- Ca improving K, Phos normal -- replace Mg 03/29 Continue calcium, magnesium repletion Severe protein-calorie malnutrition continue IV fluids Police Investigator consult, [place] breakfast (2) Abnormal CT of the abdomen: A 1.2 cm lesion within the right kidney as described above which is concerning for a solid renal mass. Follow-up nonemergent urology consultation recommended to exclude a renal cell carcinoma. (3) Nausea and vomiting: likely from #1 supportive care (4) Hypomagnesemia: replace (5) Acute hypokalemia: 2/2/ vomiting and poor PO intake. replaced (6) Hyperlipidemia: chronic, stable. Cont rosuvastatin per home regimen. (7) Chronic sinusitis: chronic, noncompliant with her typical home regimen 2/2 hospitalizations. Since she feels her mucous/post nasal drip is contributing to her nausea and vomiting issues will restart this now. Lovenox Full Discharge Exam General- oriented x 3, not in distress, speaks in sentences with no effort or accessory muscle use Eyes- anicteric Neck- no JVD Lungs- clear breath sounds bilaterally, no rales/wheezes Heart- normal rate, regular rhythm; no murmurs Abdomen- normal bowel sounds, nondistended, soft, mild LLQ tenderness Extremities- no pretibial edema, no calf tenderness Neuro- alert, oriented x 3; no gross focal neurologic deficits Skin- warm & dry Updated Medication List Medication Instructions Recorded Confirmed Type multivitamin 1 tab PO DAILY ##0 11/12/10 03/22/23 History omega 7-wmk-ots-fish oil 1,000 mg 1 cap PO DAILY ##0 11/12/10 03/22/23 History (120 mg-180 mg) capsule (Fish Oil) omeprazole 20 mg capsule,delayed 20 mg PO BID ##0 11/12/10 03/22/23 History release cholecalciferol (vitamin D3) 25 1,000 unit PO DAILY 01/25/19 03/22/23 History mcg (1,000 unit) capsule (Vitamin D3) metoprolol succinate 25 mg 25 mg PO QAM 01/25/19 03/22/23 History tablet,extended release 24 hr montelukast 10 mg tablet 10 mg PO HS 01/25/19 03/22/23 History ascorbic acid (vitamin C) 250 mg 250 mg PO QAM 06/01/19 03/22/23 History chewable tablet (Vitamin C) fluticasone propionate 50 1 spray intranasal DAILY 06/01/19 03/22/23 History mcg/actuation nasal spray,suspension (Flonase Allergy Relief) glucosamine-chondroitin 250 mg-200 1 tab PO QAM 06/01/19 03/22/23 History mg tablet (Osteo Bi-Flex) denosumab 60 mg/mL subcutaneous 60 mg subcut .[id number] 02/10/23 03/22/23 History syringe (Prolia) fluticasone fur. 200 mcg-umeclid 1 inh inhalation PM 02/10/23 03/22/23 History 62.5 mcg-vilant 25 mcg inhalat.powder (Trelegy Ellipta) rosuvastatin 20 mg tablet 20 mg PO HS 02/10/23 03/22/23 History Lactobacillus acidophilus 1 1,000 mmu cells PO DAILY #7 caps 02/14/23 03/22/23 Rx billion cell capsule cholestyramine-aspartame 4 gram 4 g PO BID@1000,2200 PRN diarrhea 02/14/23 Rx oral powder for susp in a packet #10 ea (Prevalite) ondansetron 4 mg disintegrating 4 mg PO DAILY PRN nausea and 02/14/23 03/22/23 Rx tablet vomiting #10 tabs calcitriol 0.25 mcg capsule 0.5 mcg (2 x 0.25 mcg) PO QAM 7 03/29/23 Rx days #14 caps calcium carbonate 500 mg-vitamin 2.5 tab PO TID 7 days #53 tabs 03/29/23 Rx D3 15 mcg (600 unit) tablet (Os-Ilya 500 + D3) cholecalciferol (vitamin D3) 125 5,000 unit PO QAM 30 days #30 tabs 03/29/23 Rx mcg (5,000 unit) tablet dicyclomine 20 mg tablet 20 mg PO Q6H PRN abdominal pain 30 03/29/23 Rx days #30 tabs enoxaparin 40 mg/0.4 mL 40 mg (0.4 mL) subcut QAM 30 days 03/29/23 Rx subcutaneous syringe (Lovenox) #12 mL guaifenesin 600 mg tablet, 600 mg PO Q12 7 days #14 tabs 03/29/23 Rx extended release 12 hr (Mucinex) magnesium chloride 64 mg 128 mg (2 x 64 mg) PO TID 7 days 03/29/23 Rx (magnesium chloride) #42 tabs tablet,delayed release (Mag 64) ondansetron HCl (PF) 4 mg/2 mL 4 mg (2 mL) IV Q4H PRN nausea and 03/29/23 Rx injection solution vomiting 7 days #20 mL pantoprazole 40 mg tablet,delayed 40 mg PO BID 30 days #60 tabs 03/29/23 Rx release potassium chloride 20 mEq 20 meq PO BID 7 days #14 tabs 03/29/23 Rx tablet,extended release(part/cryst) umeclidinium 62.5 mcg-vilanterol 1 inh inhalation HS #14 ea 03/29/23 Rx 25 mcg/actuation powdr for inhalation (Anoro Ellipta) Hospital Stay Data Consultations 03/22/23 17:57 ED Decision to Admit Stat 03/22/23 20:41 Consult Infectious Diseases Routine 03/23/23 08:50 Consult General Surgery Routine 03/25/23 08:20 Consult Nephrology Routine 03/28/23 10:25 Consult Gastroenterology Routine Procedures Performed Operation Date: 03/25/23 09:20 Actual Procedures p Esophagogastroduodenoscopy(Not Applicable) - Lili Alegre, Diagnostic Imagining Performed Laboratory Results WBC 5.86 K/ul (4.8-10.8) 03/29/23 04:43 RBC 3.39 M/uL (4.20-5.40) L 03/29/23 04:43 Hgb 9.6 g/dl (12.0-16.0) L 03/29/23 04:43 Hct 29.7 % (37.0-47.0) L 03/29/23 04:43 MCV 87.6 fL (80.0-100.0) 03/29/23 04:43 MCH 28.3 pg (25.0-34.0) 03/29/23 04:43 MCHC 32.3 g/dL (32.0-36.0) 03/29/23 04:43 RDW Std Deviation 45.9 fL (36.4-46.3) 03/29/23 04:43 RDW Coeff of Edgard 14.3 % (11.5-14.5) 03/29/23 04:43 Plt Count 243 K/uL (130-400) 03/29/23 04:43 MPV 9.8 fL (9.4-12.4) 03/29/23 04:43 Immature Gran % (Auto) 0.3 % 03/29/23 04:43 Neut % (Auto) 70.5 % 03/29/23 04:43 Lymph % (Auto) 18.1 % 03/29/23 04:43 Hall % (Auto) 9.7 % 03/29/23 04:43 Eos % (Auto) 0.9 % 03/29/23 04:43 Baso % (Auto) 0.5 % 03/29/23 04:43 Neut # (Auto) 4.13 K/uL (1.40-6.50) 03/29/23 04:43 Lymph # (Auto) 1.06 K/uL (1.20-3.40) L 03/29/23 04:43 Hall # (Auto) 0.57 K/uL (0.11-0.59) 03/29/23 04:43 Eos # (Auto) 0.05 K/uL (0.00-0.50) 03/29/23 04:43 Baso # (Auto) 0.03 K/uL (0.00-0.20) 03/29/23 04:43 Immature Gran # (Auto) 0.02 K/uL (0.01-0.20) 03/29/23 04:43 PT 13.0 Seconds (9.0-12.0) H 03/22/23 14:30 INR 1.2 (0.9-1.1) H 03/22/23 14:30 APTT 37.3 Seconds (21.0-31.0) H 03/22/23 14:30 PTT Ratio 1.3 03/22/23 14:30 Sodium 139 mmol/L (136-145) 03/29/23 04:43 Potassium 3.5 mmol/L (3.5-5.1) 03/29/23 04:43 Chloride 106 mmol/L (98-107) 03/29/23 04:43 Carbon Dioxide 23 mmol/L (21-32) 03/29/23 04:43 Anion Gap 10 (3-11) 03/29/23 04:43 BUN 2 mg/dl (6-23) L 03/29/23 04:43 Creatinine 0.62 mg/dl (0.6-1.2) 03/29/23 04:43 Est Cr Clr Drug Dosing 69.6 ml/min 03/29/23 04:43 Est GFR ( Amer) 101.5 ml/min 03/29/23 04:43 Est GFR (Non-Af Amer) 87.6 ml/min 03/29/23 04:43 BUN/Creatinine Ratio 3.2 (10-20) L 03/29/23 04:43 Glucose 96 mg/dl (70-99(Fasting)) 03/29/23 04:43 Lactate 0.8 mmol/L (0.4-2.0) 03/22/23 15:32 Calcium 8.7 mg/dl (8.6-10.3) D 03/29/23 04:43 Ionized Calcium 0.91 mmol/L (1.12-1.32) L 03/25/23 09:26 Phosphorus 3.2 mg/dl (2.5-4.9) 03/29/23 04:43 Magnesium 1.5 mg/dl (1.7-2.4) L 03/29/23 04:43 Total Bilirubin 0.5 mg/dl (0.2-1.0) 03/28/23 04:41 Direct Bilirubin 0.1 mg/dl (0-0.2) 03/22/23 14:30 AST 13 U/L (13-39) 03/28/23 04:41 ALT 6 U/L (7-52) L 03/28/23 04:41 Alkaline Phosphatase 57 U/L (34-104) 03/28/23 04:41 Total Protein 4.9 gm/dl (6.0-8.3) L 03/28/23 04:41 Albumin 2.5 gm/dl (3.4-5.0) L 03/28/23 04:41 Globulin 2.4 gm/dl (2.5-4.0) L 03/28/23 04:41 Albumin/Globulin Ratio 1.0 (0.9-2) 03/28/23 04:41 Lipase 13 U/L (11-82) 03/25/23 12:59 25-OH Vitamin D Total 59.6 ng/ml (30-100) 03/25/23 12:59 Vit D 1,25-Dihyd Total 83 pg/mL (18-72) H 03/25/23 12:59 1,25 Dihydroxy Vit D2 <8 pg/mL 03/25/23 12:59 1,25 Dihydroxy Vit D3 83 pg/mL 03/25/23 12:59 Procalcitonin 21.06 ng/ml (0-0.5) H 03/22/23 14:30 PTH Intact 439.9 pg/ml (12.0-88.0) H 03/25/23 12:59 Stl C. diff Tox B Gene Negative Cdiff Gene (Neg) 03/25/23 Unknown Impressions Abdomen/Pelvis CT 03/28/23 07:[address] WITH IV CONTRAST CT DOSE: 961. mGy.cm HISTORY: Follow up sigmoid abscess. TECHNIQUE: Multiaxial CT images of the abdomen and pelvis were performed following the use of intravenous contrast. A dose lowering technique was utilized adhering to the principles of ALARA. COMPARISON STUDY: Abdomen and pelvis CT 03/22/2023. FINDINGS: Trace bilateral pleural effusions with patchy bibasilar densities. This favors atelectasis. A pneumonia could also have a similar appearance. Postoperative changes again noted within the right hip. Degenerative changes within the lumbar spine again noted. Recent cholecystectomy with mild inflammatory change remaining at the cholecystectomy bed. This is similar to the prior study and favors postoperative change. Small area of focal fatty change within the left hepatic lobe adjacent to the falciform ligament. Mild hepatic steatosis is noted. The pancreas, spleen, and adrenal glands are unremarkable. Multiple bilateral renal hypodense lesions are again noted. These are similar to the prior study and favor cysts. No hydronephrosis. A 1.2 cm lesion within the interpolar region of the right kidney on image 106 is concerning for solid renal mass. Calcified plaque within the normal caliber abdominal aorta. No retroperitoneal or pelvic lymphadenopathy. The bladder is unremarkable. A 12 mm enhancing nodule within the uterine fundus again noted which favors a fibroid. Persistent thickening of the distal sigmoid colon likely representing a diverticulitis. There is mild pericolonic fat stranding and presacral edema which has slightly progressed. Pericolonic multiloculated abscess at the rectosigmoid junction is again noted. The dominant collection located between the rectum and uterus measures 4.8 x 2.7 cm. This previously measured 4.0 x 2.4 cm. The secondary collection on image 236 is stable in size measuring 3.2 x 3.1 cm. No new abscesses identified. No dilated loops of bowel to suggest an obstruction. IMPRESSION: 1. Above findings consistent with persistent acute sigmoid diverticulitis with a multiloculated pericolonic abscess. The dominant component of the multiloculated abscess has slightly increased in size as described above. There has also been interval progression of the pericolonic/presacral fat stranding. 2. Postoperative changes of recent laparoscopic cholecystectomy again noted. 3. A 1.2 cm lesion within the right kidney as described above which is concerning for a solid renal mass. Follow-up nonemergent urology consultation recommended to exclude a renal cell carcinoma. 4. Additional findings as described above. ACT 112: Negative or not required by law. Electronically signed by: Sandip Canales M.D. 03/28/2023 10:36 AM Pending Results Patient Have Any Pending Studies at Discharge: No Discharge Instructions Given to Patient (Per Discharging Provider) Please refer to accompanying hospital discharge summary Total Time Total Time Spent Total Time Spent (In Minutes): >30 minutes
== END 2023-03-29 18:16 | disposition short-term general hospital (02) | DRG 391 ==
LOC: ED 14:09 → EDINP 18:46 → SUATTDRO 18:46 → 2W 23:04
DX: E87.6 Hypokalemia; Z88.0 Allergy status to penicillin; T49.6X6A Underdosing of otorhinolaryngological drugs and preparations, initial encounter; E43 Unspecified severe protein-calorie malnutrition; R19.7 Diarrhea, unspecified; J44.9 Chronic obstructive pulmonary disease, unspecified; Z90.49 Acquired absence of other specified parts of digestive tract; R11.2 Nausea with vomiting, unspecified; E83.42 Hypomagnesemia; E83.51 Hypocalcemia; Z79.811 Long term (current) use of aromatase inhibitors; Z79.899 Other long term (current) drug therapy; I10 Essential (primary) hypertension; Z88.6 Allergy status to analgesic agent; K25.9 Gastric ulcer, unspecified as acute or chronic, without hemorrhage or perforation; K21.9 Gastro-esophageal reflux disease without esophagitis; Z79.51 Long term (current) use of inhaled steroids; E78.5 Hyperlipidemia, unspecified; J32.9 Chronic sinusitis, unspecified; Z91.148 Patient's other noncompliance with medication regimen for other reason; T48.6X6A Underdosing of antiasthmatics, initial encounter; K31.7 Polyp of stomach and duodenum; K57.20 Diverticulitis of large intestine with perforation and abscess without bleeding

== ENCOUNTER 2023-04-05 15:48 | Inpatient (IN) ==
[2023-04-05 17:14] LABS: Basophils # (auto) 0.05 K/uL (0.00-0.20); Basophils % (auto) 0.6 %; Eosinophils # (auto) 0.12 K/uL (0.00-0.50); Eosinophils % (auto) 1.5 %; Hematocrit (blood only) 36.8 % (37.0-47.0); Hemoglobin 11.9 g/dl (12.0-16.0); Immature Granulocytes # (auto) 0.05 K/uL (0.01-0.20); Immature Granulocytes % (auto) 0.6 %; Lymphocytes # (auto) 2.01 K/uL (1.20-3.40); Lymphocytes % (auto) 25.4 %; Mean Corpuscular Hemoglobin 28.3 pg (25.0-34.0); Mean Corpuscular Hgb Conc 32.3 g/dL (32.0-36.0); Mean Corpuscular Volume 87.6 fL (80.0-100.0); Mean Platelet Volume 9.9 fL (9.4-12.4); Monocytes # (auto) 0.64 K/uL (0.11-0.59); Monocytes % (auto) 8.1 %; Neutrophils # (auto) 5.05 K/uL (1.40-6.50); Neutrophils % (auto) 63.8 %; Platelet Count 396 K/uL (130-400); RDW Coefficient of Variation 14.8 % (11.5-14.5); RDW Standard Deviation 47.2 fL (36.4-46.3); White Blood Count 7.92 K/ul (4.8-10.8)
[2023-04-05 17:24] LABS: Albumin Level 3.7 gm/dl (3.4-5.0); Anion Gap 13 (3-11); Bilirubin,Total 0.5 mg/dl (0.2-1.0); Carbon Dioxide 19 mmol/L (21-32); Chloride 104 mmol/L (98-107); Potassium 3.7 mmol/L (3.5-5.1); Sodium 136 mmol/L (136-145)
[2023-04-05 17:30] LABS: Alanine Aminotransferase 5 U/L (7-52); Albumin Globulin Ratio 1.1 (0.9-2); Alkaline Phosphatase 86 U/L (34-104); Aspartate Aminotransferase 20 U/L (13-39); BUN Creatinine Ratio 11.7 (10-20); Blood Urea Nitrogen 7 mg/dl (6-23); Est GFR (African American) 102.6 ml/min; Est GFR (Non-African American) 88.5 ml/min; Globulin 3.5 gm/dl (2.5-4.0); Glucose 101 mg/dl (70-99(Fasting)); Total Protein 7.2 gm/dl (6.0-8.3)
[2023-04-05] MEDS ORDERED: MAGNESIUM SULFATE / D5W 1 GM/100 ML BAG IV STA (17:45)
[2023-04-05] MEDS ORDERED: SODIUM CHLORIDE 0.9% 1,000 ML IV ONE (17:45)
[2023-04-05 18:01] LABS: INR 1.1 (0.9-1.1); Prothrombin Time 12.3 Seconds (9.0-12.0)
[2023-04-05] MEDS ORDERED: FAMOTIDINE 20MG IV PUSH 20 MG/5 ML SYR IV STA (20:17)
--- NOTE | 2023-04-05 20:24 | Emergency Department Note ---
Impression & Plan Nausea & vomiting, Hypomagnesemia, Generalized weakness ED Provider Note ED Provider Note NAME: LEIGH TOBIAS AGE:77 SEX: Female : 1945 ARRIVES VIA: Private vehicle INFORMANT: Patient ED PROVIDER(s): Sarah Syed DO CHIEF COMPLAINT: Nausea and vomiting, weakness, poor appetite HPI: This is a 77-year-old female presents emergency department after instructed to come here by her PCP after she was found to have abnormal outpatient labs. Patient states she does not know what is abnormal. Patient has had a complicated recent 4 to 6-week history with diverticulitis with abscess requiring hospitalization twice as well as cholecystectomy. She is still finishing a course of Augmentin from her discharge last week. She states she has had increased weakness, nausea, decreased appetite. She has had intermittent vomiting additionally. She denies any blood in the emesis. She denies fevers or chills. She denies any overt abdominal pain. PAST MEDICAL HISTORY:See Below PAST SURGICAL HISTORY:See Below FAMILY HISTORY:See Below SOCIAL HISTORY:See Below HOME MEDICATIONS:See Below ALLERGIES:See Below VITALS:See Below PHYSICAL EXAMINATION: GENERAL: alert, unwell appearing, well nourished, no distress, non-toxic EYE EXAM: normal conjunctiva, PERRL and EOM's grossly intact OROPHARYNX: no exudate, no erythema, lips, buccal mucosa, and tongue normal and mucous membranes are dry NECK: supple, no nuchal rigidity, no adenopathy, non-tender LUNGS: Clear to auscultation. Normal chest wall mechanics, no w/r/r HEART: no murmurs, S1 normal and S2 normal ABDOMEN: abdomen soft, non-tender, normo-active bowel sounds, no masses, no rebound or guarding. BACK: Back is symmetrical on inspection and there is no deformity, no midline tenderness, no CVA tenderness. SKIN: no rashes, petechiae, orbruising UPPER EXTREMITIES: upper extremities are grossly normal. FROM, nml pulses b/l. LOWER EXTREMITIES: No pitting edema. FROM, nml pulses b/l. NEURO EXAM: Normal sensorium, cranial nerves II-XII grossly intact, normal speech, no facial droop,nogross weakness of arms, no gross weakness of legs. Gross sensation intact. No ataxia. Vital Signs: reviewed and remarkable Differential Diagnosis: Recurrent diverticulitis, worsening abscess, peritonitis, GI bleed, mesenteric ischemia, medication ADR, dehydration, electrolyte abnormality, ROB, as well as others were considered MEDICAL DECISION MAKING: This is a 77-year-old female presents emergency room due to increased weakness, nausea, vomiting, after recent complicated course of diverticulitis with abscess and multiple hospitalizations. Patient ill-appearing on arrival although afebrile vital signs stable. Labs drawn and sent, IV established, EKG and chest x-ray performed bedside interpreted by me and patient monitored on telemetry. She was started on IV fluids as she did appear clinically dehydrated. Labs show significant hypomagnesemia and IV repletion was begun additionally. I suspect given decreased oral intake the hypomagnesemia is contributing to her increased weakness and fatigue. Patient had no focal abdominal pain. I do suspect some of her symptoms are from her antibiotics additionally. Patient hydrated here and maintained on telemetry. Heart rate did improve with IV fluid repletion. Case discussed with hospitalist team for additional evaluation and management. Patient and at bedside updated on all results and plan and were in agreement. Consultation(s): 2204: Discussed with Dr. Mcnulty, [facility] hospitalist, for additional evaluation and mgmt. ER Treatment Provided: See below Diagnostics Interpreted By Me: -ECG: Sinus tachycardia at 122, normal axis, normal intervals, ST depression noted in lead II, aVF, V3 through V6 although given age and tachycardia I suspect this may be rate related -Cardiac Monitoring: An order was placed for continuous cardiac monitoring. The monitor shows a rate of 102 with sinus tachycardia rhythm. -Laboratory studies: As stated above and show below. -Imaging studies: X-ray Chest: A single view study of the chest was reviewed and was negative for cardiomegaly, focal infiltrate, effusion, pulmonary edema, or wide mediastinum. Triage Nursing Note Reviewed Prior/Outside Records Reviewed Procedures: [] Critical Care: Critical care of 39 min performed to assess and manage high likelihood of life- threatening hypomagnesemia, involving labs and imaging performed with assessment to evaluate weakness diagnosis with frequent reassessment. This time includes bedside time, treatment discussions with patient/family/consultants, documentation time and excludes procedure time. Past Med/Surg History Medical History Osteoporosis COPD (chronic obstructive pulmonary disease) Chronic sinusitis Asthma Diverticulitis Degenerative arthritis of knee, bilateral Trochanteric bursitis, right hip Osteoarthritis GERD (gastroesophageal reflux disease) Hyperlipidemia Hypertension Surgical History H/O esophagogastroduodenoscopy (03/25/23) Esophagogastroduodenoscopy(Not Applicable) - Lili Alegre, DO Hx laparoscopic cholecystectomy (03/08/23) Laparoscopic Cholecystectomy - Lili Alegre, DO Hx of colonoscopy History of open reduction and internal fixation (ORIF) procedure RIGHT HIP Hx of sinus surgery Family History Other Family history non-contributory Social History Smoking Status: Never smoker Tobacco Type: Cigarettes Second Hand Exposure: No; Do You Dip or Chew Tobacco: No; Hx Alcohol Use: No Hx Substance Use: No Preferred Language: Bulgarian Communication Ability: Effective Revenue Specialist Required: No Beliefs That Will Affect Care: None Current Living Situation: Spouse Current Living Situation Comment: lives at home w Other Information That Helps Us Care for You: No Feels Safe at Home: Yes Safety Concerns: Feels Safe At This Time Assistive Devices: Cane, Nebulizer and Walker Allergies Allergies Allergy/AdvReac Type Severity Reaction Status Date / Time amoxicillin Allergy Severe Itching Unverified 04/05/23 20:34 aspirin Allergy Mild wheeze Verified 04/05/23 20:34 Home Meds Home Medications Medication Instructions Recorded Confirmed multivitamin 1 tab PO DAILY ##0 11/12/10 04/05/23 omega 3-ube-cin-fish oil 1,000 mg 1 cap PO DAILY ##0 11/12/10 04/05/23 (120 mg-180 mg) capsule (Fish Oil) cholecalciferol (vitamin D3) 25 1,000 unit PO DAILY 01/25/19 04/05/23 mcg (1,000 unit) capsule (Vitamin D3) metoprolol succinate 25 mg 25 mg PO QAM 01/25/19 04/05/23 tablet,extended release 24 hr ascorbic acid (vitamin C) 250 mg 250 mg PO QAM 06/01/19 04/05/23 chewable tablet (Vitamin C) fluticasone propionate 50 1 spray intranasal DAILY PRN 06/01/19 04/05/23 mcg/actuation nasal Allergy Symptoms spray,suspension (Flonase Allergy Relief) glucosamine-chondroitin 250 mg-200 1 tab PO QAM 06/01/19 04/05/23 mg tablet (Osteo Bi-Flex) denosumab 60 mg/mL subcutaneous 60 mg subcut .[id number] 02/10/23 04/05/23 syringe (Prolia) fluticasone fur. 200 mcg-umeclid 1 inh inhalation PM 02/10/23 04/05/23 62.5 mcg-vilant 25 mcg inhalat.powder (Trelegy Ellipta) rosuvastatin 20 mg tablet 20 mg PO HS 02/10/23 04/05/23 amoxicillin 875 mg-potassium 1 tab PO BID 04/06/23 04/06/23 clavulanate 125 mg tablet ciprofloxacin HCl 500 mg tablet 500 mg PO BID 04/06/23 04/06/23 montelukast 10 mg tablet 10 mg PO DAILY 04/06/23 04/06/23 Previous Rx's Medication Instructions Recorded Lactobacillus acidophilus 1 1,000 mmu cells PO DAILY #7 caps 02/14/23 billion cell capsule cholecalciferol (vitamin D3) 125 5,000 unit PO QAM 30 days #30 tabs 03/29/23 mcg (5,000 unit) tablet pantoprazole 40 mg tablet,delayed 40 mg PO BID 30 days #60 tabs 03/29/23 release Results & Data (ED) Vital Signs Vital Signs - 24 hr 04/05/23 23:44 04/06/23 00:03 04/06/23 00:30 Temperature 37.3 C Temperature Source Oral Pulse Rate Pulse Rate [Right Finger] 106 H 96 H 99 H Respiratory Rate 18 18 18 Respiratory Effort / Characteristics Non-Labored Respiratory Depth Normal Blood Pressure [Left Arm] 135/78 139/65 124/67 Blood Pressure Mean [Left Arm] 97 89 86 Pulse Oximetry 96 95 96 Oxygen Delivery Method Nasal Cannula Room Air Nasal Cannula Oxygen Flow Rate 2 2 04/06/23 00:40 04/06/23 01:30 Temperature Temperature Source Pulse Rate 97 H Pulse Rate [Right Finger] 89 Respiratory Rate 18 Respiratory Effort / Characteristics Respiratory Depth Blood Pressure [Left Arm] 128/64 Blood Pressure Mean [Left Arm] 85 Pulse Oximetry 97 Oxygen Delivery Method Nasal Cannula Oxygen Flow Rate 2 Laboratory Data 04/06/23 06:52 04/06/23 06:52 Lab Results 04/05/23 04/05/23 04/05/23 Range/Units 16:52 17:16 17:17 WBC 7.92 (4.8-10.8) K/ul RBC 4.20 (4.20-5.40) M/uL Hgb 11.9 L (12.0-16.0) g/dl Hct 36.8 L (37.0-47.0) % MCV 87.6 (80.0-100.0) fL MCH 28.3 (25.0-34.0) pg MCHC 32.3 (32.0-36.0) g/dL RDW Std Deviation 47.2 H (36.4-46.3) fL RDW Coeff of Edgard 14.8 H (11.5-14.5) % Plt Count 396 (130-400) K/uL MPV 9.9 (9.4-12.4) fL Immature Gran % (Auto) 0.6 % Neut % (Auto) 63.8 % Lymph % (Auto) 25.4 % [place] % (Auto) 8.1 % Eos % (Auto) 1.5 % Baso % (Auto) 0.6 % Neut # (Auto) 5.05 (1.40-6.50) K/uL Lymph # (Auto) 2.01 (1.20-3.40) K/uL [place] # (Auto) 0.64 H (0.11-0.59) K/uL Eos # (Auto) 0.12 (0.00-0.50) K/uL Baso # (Auto) 0.05 (0.00-0.20) K/uL Immature Gran # (Auto) 0.05 (0.01-0.20) K/uL PT 12.3 H (9.0-12.0) Seconds INR 1.1 (0.9-1.1) Sodium 136 (136-145) mmol/L Potassium 3.7 (3.5-5.1) mmol/L Chloride 104 (98-107) mmol/L Carbon Dioxide 19 L (21-32) mmol/L Anion Gap 13 H (3-11) BUN 7 (6-23) mg/dl Creatinine 0.60 (0.6-1.2) mg/dl Est Cr Clr Drug Dosing Not Reportable Est GFR ( Amer) 102.6 ml/min Est GFR (Non-Af Amer) 88.5 ml/min BUN/Creatinine Ratio 11.7 (10-20) Glucose 101 H (70-99(Fasting)) mg/dl Calcium 8.0 L (8.6-10.3) mg/dl Magnesium 1.0 L (1.7-2.4) mg/dl Total Bilirubin 0.5 (0.2-1.0) mg/dl AST 20 (13-39) U/L ALT 5 L (7-52) U/L Alkaline Phosphatase 86 (34-104) U/L Troponin I High Sens Cancelled 8.5 Total Protein 7.2 (6.0-8.3) gm/dl Albumin 3.7 (3.4-5.0) gm/dl Globulin 3.5 (2.5-4.0) gm/dl Albumin/Globulin Ratio 1.1 (0.9-2) Adenovirus (PCR) (NotDetected) B. pertussis DNA (PCR) (NotDetected) B.parapertussis DNA PCR (NotDetected) C. pneumoniae DNA (PCR) (NotDetected) Coronavirus OC43 (PCR) (NotDetected) Coronavirus HKU1 (PCR) (NotDetected) Coronavirus 229E (PCR) (NotDetected) SARS-CoV-2 (PCR) (NotDetected) Coronavirus NL63 (PCR) (NotDetected) Human Metapneumovir PCR (NotDetected) Influenza Type A (PCR) (NotDetected) Influenza Type B (PCR) (NotDetected) M. pneumoniae (PCR) (NotDetected) Parainfluenza 1 (PCR) (NotDetected) Parainfluenza 2 (PCR) (NotDetected) Parainfluenza 3 (PCR) (NotDetected) Parainfluenza 4 (PCR) (NotDetected) RSV (PCR) (NotDetected) Entero/Rhino (PCR) (NotDetected) 04/05/23 Range/Units 20:33 WBC (4.8-10.8) K/ul RBC (4.20-5.40) M/uL Hgb (12.0-16.0) g/dl Hct (37.0-47.0) % MCV (80.0-100.0) fL MCH (25.0-34.0) pg MCHC (32.0-36.0) g/dL RDW Std Deviation (36.4-46.3) fL RDW Coeff of Edgard (11.5-14.5) % Plt Count (130-400) K/uL MPV (9.4-12.4) fL Immature Gran % (Auto) % Neut % (Auto) % Lymph % (Auto) % [place] % (Auto) % Eos % (Auto) % Baso % (Auto) % Neut # (Auto) (1.40-6.50) K/uL Lymph # (Auto) (1.20-3.40) K/uL [place] # (Auto) (0.11-0.59) K/uL Eos # (Auto) (0.00-0.50) K/uL Baso # (Auto) (0.00-0.20) K/uL Immature Gran # (Auto) (0.01-0.20) K/uL PT (9.0-12.0) Seconds INR (0.9-1.1) Sodium (136-145) mmol/L Potassium (3.5-5.1) mmol/L Chloride (98-107) mmol/L Carbon Dioxide (21-32) mmol/L Anion Gap (3-11) BUN (6-23) mg/dl Creatinine (0.6-1.2) mg/dl Est Cr Clr Drug Dosing Est GFR ( Amer) ml/min Est GFR (Non-Af Amer) ml/min BUN/Creatinine Ratio (10-20) Glucose (70-99(Fasting)) mg/dl Calcium (8.6-10.3) mg/dl Magnesium (1.7-2.4) mg/dl Total Bilirubin (0.2-1.0) mg/dl AST (13-39) U/L ALT (7-52) U/L Alkaline Phosphatase (34-104) U/L Troponin I High Sens Total Protein (6.0-8.3) gm/dl Albumin (3.4-5.0) gm/dl Globulin (2.5-4.0) gm/dl Albumin/Globulin Ratio (0.9-2) Adenovirus (PCR) Not Detected (NotDetected) B. pertussis DNA (PCR) Not Detected (NotDetected) B.parapertussis DNA PCR Not Detected (NotDetected) C. pneumoniae DNA (PCR) Not Detected (NotDetected) Coronavirus OC43 (PCR) Not Detected (NotDetected) Coronavirus HKU1 (PCR) Not Detected (NotDetected) Coronavirus 229E (PCR) Not Detected (NotDetected) SARS-CoV-2 (PCR) Not Detected (NotDetected) Coronavirus NL63 (PCR) Not Detected (NotDetected) Human Metapneumovir PCR Not Detected (NotDetected) Influenza Type A (PCR) Not Detected (NotDetected) Influenza Type B (PCR) Not Detected (NotDetected) M. pneumoniae (PCR) Not Detected (NotDetected) Parainfluenza 1 (PCR) Not Detected (NotDetected) Parainfluenza 2 (PCR) Not Detected (NotDetected) Parainfluenza 3 (PCR) Not Detected (NotDetected) Parainfluenza 4 (PCR) Not Detected (NotDetected) RSV (PCR) Not Detected (NotDetected) Entero/Rhino (PCR) Not Detected (NotDetected) Administered Medications Amoxicillin/Clavulanate Potassium (Amoxicillin/Clavulanate 875 Mg Tab) 1 tab PO BID [facility]; Protocol Stop: 04/11/23 23:59 Last Admin: 04/06/23 20:36 Dose: 1 tab Documented By: Admin: 04/06/23 08:37 Dose: 1 tab Documented By: LINK Ascorbic Acid (Ascorbic Acid 500 Mg Tab) 250 mg PO QAM [facility] Stop: 05/06/23 08:59 Last Admin: 04/06/23 08:37 Dose: 250 mg Documented By: LINK Ciprofloxacin (Ciprofloxacin 500 Mg Tab) 500 mg PO BID [facility]; Protocol Stop: 04/11/23 23:59 Last Admin: 04/06/23 20:36 Dose: 500 mg Documented By: Admin: 04/06/23 08:37 Dose: 500 mg Documented By: LINK Enoxaparin Sodium (Enoxaparin Inj 40 Mg/0.4 Ml Syr) 40 mg SQ Q24H ALFREDA Stop: 05/06/23 05:59 Last Admin: 04/06/23 08:38 Dose: 40 mg Documented By: LINK Fluticasone Furoate (Fluticasone Furoate 200mcg 14 Puffs/Inhaler) 1 puffs INH DAILY ALFREDA Stop: 05/06/23 08:59 Last Admin: 04/06/23 08:36 Dose: 1 puffs Documented By: LINK Fluticasone Propionate (Fluticasone Propionate Na Spr 16 Gm Btl) 1 sprays NA DAILY PRN PRN Reason: Allergy Symptoms Stop: 05/06/23 04:12 Last Admin: 04/06/23 08:38 Dose: 1 sprays Documented By: LINK Glucosamine Sulfate (Glucosamine Sulfate 500 Mg Cap) 500 mg PO QAM [facility] Stop: 05/06/23 08:59 Last Admin: 04/06/23 08:37 Dose: 500 mg Documented By: LINK Lactobacillus Acidophilus (Advanced Probiotic 1250 Mg Capsule) 2 cap PO DAILY ALFREDA Stop: 05/06/23 08:59 Last Admin: 04/06/23 08:37 Dose: 2 cap Documented By: LINK Metoprolol Succinate (Metoprolol Succ 25mg Ext Rel Tab) 25 mg PO QAM [facility] Stop: 05/06/23 08:59 Last Admin: 04/06/23 08:37 Dose: 25 mg Documented By: LINK Montelukast Sodium (Montelukast Sodium 10 Mg Tablet) 10 mg PO DAILY ALFREDA Stop: 05/06/23 08:59 Last Admin: 04/06/23 08:37 Dose: 10 mg Documented By: LINK Multivitamins (Multivitamin Tab) 1 tab PO DAILY ALFREDA Stop: 05/06/23 08:59 Last Admin: 04/06/23 08:37 Dose: 1 tab Documented By: LINK Pantoprazole Sodium (Pantoprazole 40 Mg Tab) 40 mg PO BID ALFREDA Stop: 05/06/23 08:59 Last Admin: 04/06/23 20:35 Dose: 40 mg Documented By: Admin: 04/06/23 08:37 Dose: 40 mg Documented By: LINK Rosuvastatin Calcium (Rosuvastatin Calcium 20 Mg Tab) 20 mg PO HS ALFREDA Stop: 05/06/23 20:59 Last Admin: 04/06/23 20:35 Dose: 20 mg Documented By: VAISHALI Umeclidinium/Vilanterol (Umeclidinium/Vilanterol 62.5/25mcg 7 Puffs/Inhaler) 1 puffs INH DAILY ALFREDA Stop: 05/06/23 08:59 Last Admin: 04/06/23 08:38 Dose: 1 puffs Documented By: LINK Vitamin D (Cholecalciferol 1,000 Units 25 Mcg Tab) 1,000 units PO DAILY ALFREDA Stop: 05/06/23 08:59 Last Admin: 04/06/23 08:37 Dose: 1,000 units Documented By: LINK Discontinued Medications Sodium Chloride (Nss) 1,000 mls @ 999 mls/hr IV .Q1H1M ONE Stop: 04/05/23 18:45 Last Infusion: 04/05/23 23:00 Dose: Infused Documented By: Admin: 04/05/23 20:20 Dose: 999 mls/hr Documented By: SATYA Magnesium Sulfate/Dextrose (Magnesium Sulfate / D5w) 1 gm in 100 mls @ 100 mls/hr IV NOW STA Stop: 04/05/23 18:44 Last Infusion: 04/05/23 21:23 Dose: Infused Documented By: Admin: 04/05/23 20:20 Dose: 100 mls/hr Documented By: SATYA Famotidine (Pepcid 20mg Iv Push) 20 mg in 5 mls @ 2.5 mls/min IV NOW STA Stop: 04/05/23 20:18 Last Admin: 04/05/23 20:32 Dose: 2.5 mls/min Documented By: SATYA Magnesium Sulfate/Dextrose (Magnesium Sulfate / D5w) 1 gm in 100 mls @ 100 mls/hr IV Q1H ALFREDA Stop: 04/06/23 00:41 Last Infusion: 04/06/23 01:49 Dose: Infused Documented By: Admin: 04/06/23 00:49 Dose: 100 mls/hr Documented By: Infusion: 04/06/23 00:45 Dose: Infused Documented By: Admin: 04/05/23 23:45 Dose: 100 mls/hr Documented By: CARLIN Sodium Chloride (Nss) 1,000 mls @ 125 mls/hr IV .Q8H ALFREDA Stop: 05/05/23 23:14 Last Infusion: 04/06/23 09:12 Dose: Infused Documented By: Infusion: 04/06/23 04:43 Dose: 125 mls/hr Documented By: Admin: 04/05/23 23:55 Dose: 125 mls/hr Documented By: CARLIN Magnesium Sulfate/Dextrose (Magnesium Sulfate / D5w) 1 gm in 100 mls @ 50 mls/hr IV ONE ONE Stop: 04/06/23 03:59 Last Infusion: 04/06/23 04:33 Dose: Infused Documented By: Admin: 04/06/23 02:33 Dose: 50 mls/hr Documented By: CARLIN Dextrose/Sodium Chloride (D5w And 1/2nss) 1,000 mls @ 100 mls/hr IV .Q10H ALFREDA Stop: 04/07/23 00:29 Last Admin: 04/06/23 15:00 Dose: 100 mls/hr Documented By: Infusion: 04/06/23 14:44 Dose: Infused Documented By: Admin: 04/06/23 04:44 Dose: 100 mls/hr Documented By: NELIDA Albumin Human (Albumin 25%) 25 gm in 100 mls @ 50 mls/hr IV ONE ONE Stop: 04/06/23 10:41 Last Infusion: 04/06/23 14:18 Dose: Infused Documented By: Admin: 04/06/23 12:18 Dose: 50 mls/hr Documented By: ALAN Calcium Gluconate () 1,000 mg in 60 mls @ 240 mls/hr IV ONE STA Stop: 04/06/23 09:01 Last Infusion: 04/06/23 12:11 Dose: Infused Documented By: Admin: 04/06/23 11:56 Dose: 240 mls/hr Documented By: ALAN Potassium Chloride (Potassium Chloride Crtab 20 Meq Tabcr) 40 meq PO NOW STA Stop: 04/06/23 08:45 Last Admin: 04/06/23 11:56 Dose: 40 meq Documented By: ALAN Discharge Plan Visit Data Chief Complaint: Abnormal Labs/Diagnostic Testing Stated Complaint: Abnormal Labs/Diagnostic Testing ED Provider: Sarah Syed Discharge Problem: Nausea & vomiting, Hypomagnesemia, Generalized weakness Patient Disposition: Admitted As Inpatient Discharge Instructions Interventions: ED Discharge Assessment Last Done: 04/06/23 04:14
[2023-04-05 21:42] LABS: Adenovirus PCR Not Detected (NotDetected); Bordetella parapertussis PCR Not Detected (NotDetected); Bordetella pertussis PCR Not Detected (NotDetected); Chlamydia pneumoniae PCR Not Detected (NotDetected); Coronavirus 229E PCR Not Detected (NotDetected); Coronavirus CoV-2 (COVID19)PCR Not Detected (NotDetected); Coronavirus HKU1 PCR Not Detected (NotDetected); Coronavirus NL63 PCR Not Detected (NotDetected); Coronavirus OC43PCR Not Detected (NotDetected); Human Metapneumovirus PCR Not Detected (NotDetected); Influenza A PCR Not Detected (NotDetected); Influenza B PCR Not Detected (NotDetected); Mycoplasma pneumoniae PCR Not Detected (NotDetected); Parainfluenza Virus 1 PCR Not Detected (NotDetected); Parainfluenza Virus 2 PCR Not Detected (NotDetected); Parainfluenza Virus 3 PCR Not Detected (NotDetected); Parainfluenza Virus 4 PCR Not Detected (NotDetected); Respiratory Syncytial VirusPCR Not Detected (NotDetected); Rhinovirus/Enterovirus PCR Not Detected (NotDetected)
[2023-04-05] MEDS ORDERED: SODIUM CHLORIDE 0.9% 1,000 ML IV SCH (23:15)
[2023-04-05] MEDS: MAGNESIUM SULFATE / D5W 1 GM/100 ML BAG IV SCH (23:45)
[2023-04-06] MEDS: MAGNESIUM SULFATE / D5W 1 GM/100 ML BAG IV SCH (00:49)
--- OUTSIDE RECORDS SUMMARY | 2023-04-06 01:10 | External Medical Summary ---
Author Name Unknown Address Unknown Organization [id number]:[facility] [address] [place] [address] Laboratory Report Ordering Provider Test Date Status BENITA CHENG 04/05/2023 11:25:00 Final Observation Date Value Abnormality Reference (Units ) Status BUN 04/05/2023 11:25:00 5 Below low normal 6-20 (mg/dL) Final Creatinine 04/05/2023 11:25:00 0.6 0.5-1.0 (mg/dL) Final Glomerular filtration rate/1.73 sq M.predicted [Volume Rate/Area] in Serum, Plasma or Blood by Creatinine-based formula (CKD-EPI) 04/05/2023 11:25:00 >90 >=60 (mL/min) Final eGFR is calculated based on the CKD-EPI 2020 equation SODIUM 04/05/2023 11:25:00 137 135-146 (m mol/L) Final Potassium 04/05/2023 11:25:00 3.9 3.5-5.1 (m mol/L) Final Cl 04/05/2023 11:25:00 101 98-107 (mm ol/L) Final CO2 04/05/2023 11:25:00 25 22-32 (mmo l/L) Final Anion gap 04/05/2023 11:25:00 11 7-15 (mmol /L) Final Glucose 04/05/2023 11:25:00 121 Above high normal 70 -120 (mg/dL) Final Albumin 04/05/2023 11:25:00 3.4 Below low normal 3.8 -5.0 (g/dL) Final AST (Aspartate aminotransferase) 04/05/2023 11:25:00 23 10-35 (U/L) Fin al Alk Phos 04/05/2023 11:25:00 92 35-130 (U/ L) Final Bilirubin, Total 04/05/2023 11:25:00 0.3 <=1 .2 (mg/dL) Final Calcium 04/05/2023 11:25:00 7.9 Below low normal 8.4 -10.2 (mg/dL) Final Protein 04/05/2023 11:25:00 6.1 6.0-8.3 (g /dL) Final ALT (Alanine aminotransferase) 04/05/2023 11:25:00 8 Below low normal 10-35 (U/L) Final Performing Location [facility] [address] [place] [address]
--- OUTSIDE RECORDS SUMMARY | 2023-04-06 01:10 | External Medical Summary ---
Author Name Unknown Address Unknown Organization [id number]:[facility] [place] [address] Laboratory Report Ordering Provider Test Date Status BENITA CHENG 04/05/2023 11:25:00 Final Observation Date Value Abnormality Reference (Units ) Status SYNC LEUKOCYTES IN BLOOD BY AUTOMATED COUNT 04/05/2023 11:25:00 7.90 4.00-10.80 (K/uL) Final Segs 04/05/2023 11:25:00 63.2 40.0-75.0 (%) Final Lymphs % 04/05/2023 11:25:00 26.6 18.0-42.0 (%) Final Monos 04/05/2023 11:25:00 8.6 1.0-11.0 (%) Final Eosinophils 04/05/2023 11:25:00 1.5 0.0-6.0 (%) Final Basos 04/05/2023 11:25:00 0.1 0.0-2.0 (%) Final Absolute Segs 04/05/2023 11:25:00 4.99 1.80-7.70 (K/uL) Final Lymphs, absolute 04/05/2023 11:25:00 2.10 1.00-4.80 (K/ul) Final Monos, Abs 04/05/2023 11:25:00 0.68 0.00-1.10 (K/uL) Final Eos, Abs 04/05/2023 11:25:00 0.12 0.00-0.70 (K/uL) Final Basos, Abs 04/05/2023 11:25:00 0.01 0.00-0.20 (K/uL) Final Performing Location [facility] [place] [address]
--- OUTSIDE RECORDS SUMMARY | 2023-04-06 01:10 | External Medical Summary ---
Author Name Unknown Address Unknown Organization [id number]:[facility] [place] [address] Laboratory Report Ordering Provider Test Date Status BENITA CHENG 04/05/2023 11:25:00 Final Observation Date Value Abnormality Reference (Units ) Status Magnesium 04/05/2023 11:25:00 1.0 Below low normal 1.5 -2.6 (mg/dL) Final Performing Location [facility] [place] [address]
--- OUTSIDE RECORDS SUMMARY | 2023-04-06 01:10 | External Medical Summary ---
Author Name Unknown Address Unknown Organization K09:[facility] [place] [address] Laboratory Report Ordering Provider Test Date Status BENITA CHENG 04/05/2023 11:25:00 Final Observation Date Value Abnormality Reference (Units ) Status WBC, Total 04/05/2023 11:25:00 7.90 4.00-10.8 0 (K/uL) Final RBC 04/05/2023 11:25:00 3.74 3.85-5.15 (M/uL) Final Hemoglobin 04/05/2023 11:25:00 10.6 Below low normal 12 .0-15.3 (g/dL) Final HCT 04/05/2023 11:25:00 33.6 Below low normal 36. 0-45.2 (%) Final MCV 04/05/2023 11:25:00 89.8 81.5-97.5 (fL) Final MCH 04/05/2023 11:25:00 28.3 27.0-34.0 (pg) Final MCHC 04/05/2023 11:25:00 31.5 32.0-36.0 (g/dL) Final RDW 04/05/2023 11:25:00 14.9 11.5-15.5 (%) Final Platelets 04/05/2023 11:25:00 372 140-400 (K /uL) Final MPV 04/05/2023 11:25:00 10.1 6.6-11.1 ( fL) Final Performing Location [facility] [place] [address]
--- OUTSIDE RECORDS SUMMARY | 2023-04-06 01:10 | External Medical Summary | Summary of Care ---
Author Name Unknown Organization [facility] Address [address] [place] [address] Phone [phone] Care Team Providers Care Production Dispatcher Name Role Phone Manoj Weber DO Primary Care Provider [phone] Encounter Details Date Type Department Care Team (Late st Contact Info) Description 04/04/2023 Documentation [facility], [address] [place] [address] Services, [facility]fusion [address] [place], [place] [id number] Allergies Active Allergy Reactions Criticality Noted Date Comments Salicylates 03/03/2001 Asthmatic reaction (aspirin; no food allergies) documented as of this encounter (statuses as of 04/04/2023) Medications Medication Sig Dispensed Refills Start Date [...] PO CAPS One each day 0 Active Cholecalciferol (VITAMIN D) 1000 UNIT Capsule Take [...] MEAL 200 Capsule 1 11/01/2022 4 Active Metoprolol Succinate ER 25 MG Oral Tablet Extended Release 24 Hour (toPROL XL)Indications:[place] atherosclerosis of [place] coronary artery,Patent foramen ovale,HTN, goal below 130/80 [...] 6 months. 1 Each 1 01/21/2023 Active Ondansetron 4 MG Oral Tablet Disintegrating (Zofran) Place 1 Tablet on tongue as needed. 0 02/14/2023 Active Rosuvastatin Calcium 20 MG Oral Tablet (Crestor)Indications: Dyslipidemia, goal LDL below 70 TAKE ONE TABLET BY MOUTH AT BEDTIME 100 Tablet 0 03/29/2023 4 Active Ciprofloxacin HCl 500 MG Oral Tablet (Cipro) Take 1 Tablet by mouth in the morning and 1 Tablet before bedtime. Do all this for 9 days. 18 Tablet 0 04/03/2023 3 Active Amoxicillin-Pot Clavulanate 875-125 MG Oral Tablet (Augmentin) Take 1 Tablet by mouth in the morning and 1 Tablet before bedtime. Do all this for 9 days. 18 Tablet 0 04/03/2023 3 Active Culturelle Oral Capsule Take 1 Capsule by mouth in the morning and 1 Capsule before bedtime. 60 Capsule 0 04/03/2023 Active documented as of this encounter (statuses as of 04/04/2023) Active Problems Problem Noted Date Diagnosed Date Diverticulitis of sigmoid colon 03/13/2023 Status post cholecystectomy 03/13/2023 Chronic pain of right knee 06/10/2020 Age-related osteoporosis wit hout current pathological fracture 12/06/2019 Atrial septal aneurysm 01/05/2019 Gastroesophageal reflux disease without esophagi tis 02/10/2018 Asthma, mild persistent 06/24/2011 Chronic sinusitis 06/24/2011 History of nasal polyp 06/24/2011 Dyslipidemia, goal LDL below 70 06/10/2011 ASPIRIN, CONTRAINDICATED- WHEEZING 03/10/2011 Atherosclerosis of [place] co ronary artery of [place] heart without angina pectoris 03/10/2011 Overview: Cardiac catheterization 02/12/11 30-40 % proximal LAD stenosis Diagonal 70 % Obtuse marginal 50% Systolic Fctn is normal Patent foramen ovale 01/01/2011 ADVANCE DIRECTIVE INFORMATION 07/07/2005 Overview: No, Advance Directive brochure given to patient at prior appointment. documented as of this encounter (statuses as of 04/04/2023) Resolved Problems Problem Noted Date Diagnosed Date Resolved Date Nocturnal hypoxia 04/01/2023 04/03/2023 Colonic diverticular abscess 03/13/2023 04/03/2023 Encounter for examination fo r normal comparison and control in clinical research program 09/04/2018 12/10/2019 Overview: DO NOT DELETE [facility] DETECT Study: Project # [id number], Assurance Analyst: Joe Pelletier, PhD. SUMMARY: Goal: Establish test [...] contact study staff at ; after hours Assurance Analyst via the [facility] granulizing machine operator . Please contact study team before resolving/deleting from patients problem list. Study phone number: [phone]. Diagnosis changed due to Research Module. Go to Snapshot for study details. Encounter for examination fo r normal comparison and control in clinical research program 09/04/2018 01/07/2022 Overview: DO NOT DELETE - [employer] DETECT Study: Project # [id number], Assurance Analyst: Kahlil Augustin, MS, MPH. SUMMARY: Goal: Establish [...] contact study staff at ; after hours Assurance Analyst via the [facility] granulizing machine operator . - Please contact study team before resolving/deleting from patients problem list. Study phone number: [phone]. Diagnosis changed due to Research Module. Go to Snapshot for study details. 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 No 03/29/2023 Are you blind or do you have serious difficulty seeing, even when wearing glasses? No 03/29/2023 Do you have serious difficul ty walking or climbing stairs? (5 years old or older) No 03/30/2023 Do you have difficulty dress ing or bathing? (5 years old or older) No 03/29/2023 Because of a physical, menta l, or emotional condition, do you have difficulty doing errands alone such as visiting a doctor s office or shopping? (15 years old or older) No 03/29/20 23 Cognitive Status Response Date of Assessm ent Because of a physical, menta l, or emotional condition, do you have serious difficulty concentrating, remembering, or making decisions? (5 years old or older) No 03/29/2023 documented as of this encounter Progress Notes * Mirna Siddiqui RN - 04/04/2023 12:03 PM EST TO: Dr Oates, The following documentation summarizes the services provided by [facility] asthe prescribed therapy has been completed. The client was referred to us for home therapy. The ordered therapy was Ertapenem 1gm IV daily, disp 21 gm, end 04/07/[address] Oates's OPAT, end date TBD and will need CT a/p approx 2 weeks from discharge Do not remove PICC until ID approves The home therapy began on:03/18/2023 Per physician order: The client was readmitted to [facility] hospital on 03/25, transferred to [facility] on 03/29, discharged 04/03 on Oral ABX and PICC was removed prior to discharge The client and/or caregiver were compliant with therapy administration. The therapy goals were met. The following instructions were provided via detailed message left for Urmila daughter/caregiver -care of the device insertion site after removal, including reporting of signs and symptoms of infection or other complications, -appropriate disposal of unused waste, supplies and/or medication, -return of equipment and associated accessories, -importance of keeping all follow up appointments Collaboration of Care: -[facility] clinical staff were notified of CVAD removal and therapy completion documented in this encounter Plan of Treatment Upcoming Encounters Date Type Department Care Team (Late st Contact Info) Description 04/07/2023 1:40 PM EST Office Visit Infectious Disease, [place] [address] [place] [address] Baudilio Oates, [address] [place] [address] 04/11/2023 2:20 PM EST Office Visit Family Practice [address] [facility] [address] [place] [address] Maonj Weber, [address] [place] [address] 05/04/2023 11:00 AM EST Imaging Radiology, [place] [id number] [facility] [address] 05/26/2023 3:30 PM EST Office Visit General Surgery, [place] [address] [place] [address] Gigi Colby, [address] [place] [address] 06/02/2023 1:00 PM EST Nurse Only Ancillary [address] [address] College, Nurse Annual Wellness Visit [address] [address] 06/09/2023 11:30 AM EST Office Visit Allergy/Immunology [facility] Magall[facility] [place] [address] [facility] [place] [address] Lydia Zafar PA-C [address] [facility] [place] [address] 06/14/2023 2:30 PM EST Hospital Encounter ENDO [facility], Endoscopy Room [facility] [address] [place] [id number] Judd Adams MD [address] [facility] [place] [address] 06/14/2023 2:30 PM EST - 06/14/2023 3:00 PM EST Surgery ENDO [facility], Endoscopy Room [facility] [address] [place] [phone] Judd Adams MD [address] [place] [address] COLONOSCOPY FLEXIBLE PROXIMAL DIAGNOSTIC 07/28/2023 10:00 AM EDT Office Visit Rheumatology [facility] [address] [place] [address] Devendra Shepherd CRNP [address] [place] [address] Scheduled Procedures Name Priority Associated Diagnoses Date/Ti [...] D LEVEL ONCE IN A LIFETIME-USE SMARTSET# [id number] Completed 05/13/2021, 09/01/2012, 01/30/2009 Albumin/Creatinine Ratio Discontinued [...] Not on filedocumented as of this encounter Advance Directives Latest Code Status on File Code Status Date Activated Date Inactivated Comments Full Code 03/29/2023 8:17 PM 04/03/2023 6:22 PM Thi s order reflects the patients wishes and were consensually agreed upon. Question Answer Comments Discussion of Advance Directives occurred with: Patient Code Status History Code Status Date Activated Date Inactivated Comments Full Code 03/13/2023 2:20 AM 03/17/2023 6:39 PM This order reflects the patients wishes and were consensually agreed upon. Question Answer Comments Discussion of Advance Directives occurred with: Patient Care Teams Production Dispatcher Relationship Specialty Start Date End Date Manoj Weber DO [address] [facility] [address] PCP - General 12/23/05 documented as of this encounter
--- OUTSIDE RECORDS SUMMARY | 2023-04-06 01:11 | External Medical Summary | Summary of Care ---
Author Name Unknown Organization [facility] Address [address] [place] [address] Phone [phone] Care Team Providers Care Power Reactor Supervisor Name Role Phone Manoj Weber DO Primary Care Provider [phone] Reason for Referral * Evaluate & Treat - Unlimited Visits (Within 3 days (urgent)) - Authorized Specialty Diagnoses / Procedures Referred By Meme johsnton Referred To Contact HOME CARE / Home Care Diagnoses Colonic diverticular abscess Diverticulitis of sigmoid colon Maryann Ponce [address] [facility] [place] [address] Referral ID Status Reason Start Date Expiration Date Visits Requested Visits Authorized [id number] Authorized Specialty Services Required 3 [phone] Question Answer Referral Priority Within 3 days (urgent) Where should this appointment be scheduled? [facility] Comments Documentation of Awzd-ll-Bhpa Encounter Addendum Patient Name: Ro Serrano I certify that this patient is under my care and that I, or a nurse practitioner or physician's licensed physical therapy assistant working with me, had a wxwd-nf-uaek encounter that meets the physician hmtn-hf-xovm encounter requirements with this patient on: 04/03/23 The encounter with the patient was in whole, or in part, for the following medical condition, which is the primary reason for home health care (List medical condition): Convalescence from acute illness I certify that, based on my findings, the following services are medically necessary home health services: Physical Therapy To provide the following care/treatments: (All hospitalists not following the patient after discharge should complete this section): home PT Primary Care Physician to follow home care plan of care after discharge: Manoj Weber, My clinical findings support the need for the above services because: generalized weakness from peridiverticular abscess Further, I certify that my clinical findings support that this patient is homebound (i.e. Absences from home require considerable and taxing effort and are for medical reasons or adventist services or infrequently or of short duration when for other reason) because: Taxing to leave the house due to illness Physician Signature: Date of Signature: Physician Printed Name: Maryann Ponce DO Discharge Order * Evaluate & Treat - Unlimited Visits (Within 30 days (routine)) - Authorized Specialty Diagnoses / Procedures Referred By Meme johnston Referred To Contact Sleep Medicine / Sleep Disorders Diagnoses Nocturnal hypoxia Titus Malone DO [address] [place] [address] Referral ID Status Reason Start Date Expiration Date Visits Requested Visits Authorized [id number] Authorized Specialty Services Required 3 2 2 Question Answer Referral Priority Within 30 days (routine) Where should this appointment be scheduled? [facility] ADULT REFERRAL Sleep Apnea Testing and Management Does the patient snore and/or gasp at night or has been told they stop breathing at night? Unknown Comments Discharge Order Reason for Visit * Auth/Cert Specialty Diagnoses / Procedures Referred By Meme johnston Referred To Contact Diagnoses Colonic diverticular abscess Diverticular abscess Referral ID Status Reason Start Date Expiration Date Visits Re quested Visits Authorized [id number] Encounter Details Date Type Department Care Team (Latest Contact Info) Description 03/29/2023 6:56 PM EST - 04/03/2023 2:21 PM EST Hospital Encounter Advanced Acute [facility] Medical/Transplant Unit, Dashawn Zaldivar [address]rd [address] [place] [address] aJlenArenak, [address] [place] [address] Baudilio Rizo, DO [address] [place] [address] Maryann Ponce, [address], [place] [id number] Deb Bullard MD [address] [place] [address] Various: EKG,LEUS Discharge Disposition: Home - Self Care Allergies Active Allergy Reactions Criticality Noted Date Comments Salicylates 03/03/2001 Asthmatic reaction (aspirin; no food allergies) documented as of this encounter (statuses as of 04/04/2023) Medications Medication Sig Dispensed Refills Start Date End Date Status CALCIUM + D 600-200 MG-UNIT PO TABS Take by mouth at bedtime . 0 07/08/19 06 Active MULTIVITAMIN PO TABS daily 0 07/08/19 06 Active OSTEO BI-FLEX ADV TRIPLE ST PO TABS Take by mouth at bedtime . 0 02/03/20 07 Active NASAL SALINE 0.65 % NA SOLNIndications:Chr onic sinusitis 2 squirts each nostril morning and night and every 2-4 hrs as needed for nasal dryness or congestion 1 bottle 0 02/03/20 07 Active FISH OIL 1000 MG PO CAPS One each day 0 Active Cholecalciferol (VITAMIN D) 1000 UNIT Capsule Take 2 Capsules by mouth at bedtime. 30 Cap 11 11/29/19 15 Active Loratadine 10 MG Oral Capsule Take 1 Capsule by mouth as needed for Allergies. 0 Active Fluticasone Furoate (FLONASE SENSIMIST) 27.5 MCG/SPRAY nasal spray Administer 2 Sprays into nostril daily. 10 g 12 01/16/20 19 Active Peak Flow Meter Device Use daily to track asthma symptoms. 1 Each 2 01/21/20 21 Active Cranberry 250 MG Oral Tablet Take [...] WHEEZE, SHORTNESS OF BREATH 3 mL 1 06/08/19 23 Active Omeprazole 20 MG Oral Capsule Delayed Release (PriLOSEC)Indicatio ns:GERD (gastroesophageal reflux disease) TAKE ONE CAPSULE BY MOUTH TWICE A DAY THIRTY MINUTES BEFORE BREAKFAST AND EVENING MEAL 200 Capsule 1 11/02/19 23 024 Active Metoprolol Succinate ER 25 MG Oral Tablet Extended Release 24 Hour (toPROL XL)Indications:Willy nary atherosclerosis of [place] coronary artery,Patent foramen ovale,HTN, goal below 130/80 TAKE ONE TABLET BY MOUTH EVERY MORNING 100 Tablet 3 04/12/20 22 023 Active Montelukast Sodium 10 MG Oral Tablet (Singulair) Take 1 Tablet by mouth in the morning. 90 Tablet 3 12/08/19 23 Active Trelegy Ellipta 200-62.5-25 MCG/ACT Aerosol Powder Breath Activated (Fluticasone-Umecli dinium-Vilanterol) Inhale 1 Puff by mouth every evening. 180 Blister Dosing Unit 3 01/12/20 23 Active Prolia 60 MG/ML Subcutaneous Solution Prefilled Syringe Inject 60 mg under the skin every 6 months. 1 Each 1 01/22/20 23 Active Ondansetron 4 MG Oral Tablet Disintegrating (Zofran) Place 1 Tablet on tongue as needed. 0 02/15/20 23 Active Rosuvastatin Calcium 20 MG Oral Tablet (Crestor)Indication s:Dyslipidemia, goal LDL below 70 TAKE ONE TABLET BY MOUTH AT BEDTIME 100 Tablet 0 03/29/20 23 024 Active Ciprofloxacin HCl 500 MG Oral Tablet (Cipro) Take 1 Tablet by mouth in the morning and 1 Tablet before bedtime. Do all this for 9 days. 18 Tablet 0 04/03/20 23 023 Active Amoxicillin-Pot Clavulanate 875-125 MG Oral Tablet (Augmentin) Take 1 Tablet by mouth in the morning and 1 Tablet before bedtime. Do all this for 9 days. 18 Tablet 0 04/03/20 23 023 Active Culturelle Oral Capsule Take 1 Capsule by mouth in the morning and 1 Capsule before bedtime. 60 Capsule 0 04/03/20 Active MUCINEX 600 MG PO [id number]:Chr onic sinusitis,Allergic rhinitis 1-2 pills by mouth twice a day for congestion with plenty of water as needed. Do not cut, crush or chew 50 Tab 3 11/28/19 13 023 Discontinued Acidophilus Lactobacillus Oral Capsule Take 1 Capsule by mouth daily. 0 02/15/20 23 023 Discontinued Loperamide HCl 2 MG Oral Tablet (Immodium (A-D))Indications:D iarrhea, unspecified type Take 1 Tablet by mouth 4 times a day as needed for Diarrhea. 30 Tablet 0 02/22/20 23 023 Discontinued ertapenem INJ IV (AMBULATORY) Administer 1 g intravenously daily for 21 days. 21 g 0 03/17/20 23 023 Discontinued documented as of this encounter (statuses [...] 06/10/2011 ASPIRIN, CONTRAINDICATED- WHEEZING 03/10/2011 Atherosclerosis of [place] co ronary artery of [place] heart without angina pectoris 03/10/2011 Overview: Cardiac [...] 09/04/2018 12/10/2019 Overview: DO NOT DELETE [facility] DETECT Study: Project # [id number], Oil Plant Operator: Joe Pelletier, PhD. SUMMARY: Goal: Establish test [...] contact study staff at ; after hours Oil Plant Operator via the [facility] universal grinder set up operator . Please contact study team before resolving/deleting from patients problem list. Study phone number: [phone]. Diagnosis changed due to Research Module. Go to Snapshot for study details. Encounter for examination fo r normal comparison and control in clinical research program 09/04/2018 01/07/2022 Overview: DO NOT DELETE - [facility] DETECT Study: Project # [id number], Oil Plant Operator: Kahlil Augustin, MS, MPH. SUMMARY: Goal: Establish [...] contact study staff at ; after hours Oil Plant Operator via the [facility] universal grinder set up operator . - Please contact study team before resolving/deleting from patients problem list. Study phone number: [phone]. Diagnosis changed due to Research Module. Go to Snapshot for study details. 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 11/15/2018 Lung collapse 08/13/2011 08/09/2018 Allergic rhinitis 06/24/2011 08/11/2018 GERD (gastroesophageal reflux disease) 06/24/2011 02/10/2018 HTN, goal below 130/80 03/19/201102/21 TIA (transient ischemic attack) 01/01/2011 02/10/2018 halfway current use of ant icoagulant therapy 01/01/2011 [...] mRNA, LNP-s, No Pre serve, 2-Dose Series (Algorithmia) 04/16/2021,07/21/2020,06/23/2020 Pneumococcal Conjugate Vacc, 13 Valent (Prevnar) 12/01/2015 Pneumococcal Polysaccharide PPV23 (Pneumovax) 08/09/2017,07/29/2008 SEASONAL INFLUENZA, PF, 6 M & Above, IM , (FLULAVAL or FLUZONE) 01/03/2020,02/10/2018,02/02/2017 Seasonal Influenza, Quadriva lent Hd (Fluzone Hd) 03/05/2022,04/27/2021 Seasonal Influenza, Quadriva lent, No Preserve, IM 01/26/2016 Seasonal Influenza, Split, I IV3, With Preserve, Inj 01/29/2015,03/15/2013,05/03/2012,1106/2010,03/10/2010,02/15/2008,02/03/20 07 01/30/2016 Seasonal Influenza, Trivalen t, Adjuvanted, [...] on file documented as of this encounter Last Filed Vital Signs Vital Sign Reading Time Taken Comments Blood Pressure 120/56 04/03/2023 10:38 AM EST Pulse 98 04/03/2023 10:38 AM EST Temperature 36.7 C (98.1 F) 04/03/2023 6:00 AM ES T Respiratory Rate 18 04/03/2023 10:3 8 AM EST Oxygen Saturation 95% 04/03/2023 10: 38 AM EST Inhaled Oxygen Concentration - - Weight 65.3 kg (143 lb 15.4 oz) 04/03/2023 6:00 AM EST Height 157.5 cm (5' 2") 03/29/2023 10:0 0 PM EST Body Mass Index 26.33 03/29/2023 10:00 PM EST documented in this encounter Functional Status Functional Status Response [...] (15 years old or older) No 03/29/20 Cognitive Status Response Date of Assessm ent Because of a physical, menta l, or emotional condition, do you have serious difficulty concentrating, remembering, or making decisions? (5 years old or older) No 03/29/2023 documented as of this encounter Discharge Summaries * Maryann Ponce DO - 04/03/2023 1:29 PM EST [facility] [facility] [place] [address] Admission Date: 03/29/2023 Discharge Date: 04/03/2023 RECOMMENDED TO DO FOR NEXT PROVIDER(S): Ensure completion of antibiotic course Infectious Disease follow-up in 2 weeks for possible repeat abdominal imaging REASON(S) FOR MEDICATION CHANGE(S): START -oral Ciprofloxacin and oral Augmentin for 10 days for treatment of diverticulitis STOP -Ertapenem (this was replaced with the above oral antibiotics) DISPOSITION ON DISCHARGE: home Active Hospital Problems Diagnosis Status post cholecystectomy Age-related osteoporosis without current pathological fracture Gastroesophageal reflux disease without esophagitis Asthma, mild persistent Atherosclerosis of [place] coronary artery of [place] heart without angina pectoris Resolved Hospital Problems Diagnosis Date Resolved *Principal Diagnosis - Colonic diverticular abscess 04/03/2023 Nocturnal hypoxia 04/03/2023 ADMISSION HISTORY & PHYSICAL EXAM (focused): As per Jessie Robles PA-C PRESENTING PROBLEM: abdominal pain, n/v HPI: Ro Serrano, 77 yr old female, PMHx of CAD, asthma, DLD, GERD, s/p cholecystectomy (03/08), atrial septal aneurysm presenting as a transfer from [facility] for worsening diverticular abscess. Was sent for further evaluation due to OP labs showing hypomagnesia and hypokalemia Patient seen at [facility] for the same on multiple occasions. First noticed on 03/07 was a multiloculated intramural abscess measuring approx 4 x 1.5 cm at [facility]. Patient was then transferred to [facility] for IR drainage, but deemed unsuitable for IR intervention due to intramural location. Gen surg also consulted, no surgical intervention recommended, OP f/up made. Pt was discharged on 03/17 on ertapenem, (still receiving treatments daily). On 03/28, CT showing abscess measuring 4.8 x 2.7 cm, transferred for IR drainage. Went through recent medical history with patient, denies having abdominal pain at this time. When she does have it describes as "labor contractions" to LLQ RLQ. Hasn't had full meal in over a month. Complains of generalized weakness, nausea and vomiting. Did have electrolyte abnormalities at prior facility likely due to GI loss, but states she is feeling better, just wishes to get this taken careof. Denies hematemesis, hematochezia, fevers, sweats chills, chest pain, shortness of breath, headache, lightheadedness, blurred vision Admission Vital Signs: BP: 120 mmHg/58 mmHg (03/29/231902) Pulse: 91 (03/29/231902) Temp: 37.5 C (03/29/231902) Resp: SpO2: 94 % (03/29/231902) Admission Physical Exam: Constitutional: no acute distress HEENT: normal: normocephalic, atraumatic Eyes: sclera and conjunctiva normal Neck: supple, normal range of motion CV: normal rate and rhythm, no murmur, gallops or rub Chest: normal respiratory effort, lungs clear to auscultation Abdomen: soft, (+) abnormal bowel sounds hypoactive, tenderness to palpation Extremities: no clubbing, cyanosis, or edema, otherwise grossly normal, warm, and dry Neuro: alert, oriented to person, place, and time Psych: normal mood and affect HOSPITAL COURSE (focused): Ro Serrano is a 77 year old female who was transferred to [facility] from [facility] for evaluation of endoscopic drainage of her colonic abscess that occurred in the setting of acute diverticulitis. The abscess had notably grown slightly larger despite compliance with Ertapenem in the outpatient setting. She was continued on Ertapenem while at [facility] and eventually switched to Zosyn. She was initially only given a test dose of Zosyn due to a listed allergy to penicillins and only transitioned to scheduledZosyn when she tolerated the medication without any reaction. GI attempted a lower endoscopic EUS and flexible sigmoidoscopy on 04/01/23 but was not completed due to severe diverticulosis in the sigmoid colon with narrowing of colon and spasm. IR then attempted percutaneous drainage but this was aborted as repeat CT demonstrated no abscess to drain. It was thought that the abscess may have self drained after manipulation by GI. She was switched from Zosyn to po Cipro and Augmentin (had some nausea with flagyl) and was stable for discharge on 04/03/2023. Operations & Procedures: lower endoscopic EUS and flexible sigmoidoscopy 04/01/23 (not completed due to severe diverticulosis in sigmoid colon with narrowing of colon and spasm) Complications: none significant Significant Lab and Imaging Results: As mentioned above Results Pending at Discharge: Lab Results Pending at Discharge: None MEDICATION UPDATES AT DISCHARGE START taking these medications INSTRUCTIONS amoxicillin-clavulanate 875-125 MG per Tablet Commonly known as: Augmentin Take 1 Tablet by mouth in the morning and 1 Tablet before bedtime. Do all this for 9 days. ciprofloxacin 500 MG Tablet Commonly known as: Cipro Take 1 Tablet by mouth in the morning and 1 Tablet before bedtime. Do all this for 9 days. Lactobacillus Capsule Take 1 Capsule by mouth in the morning and 1 Capsule before bedtime. CONTINUE taking these medications INSTRUCTIONS Acetaminophen ER 650 MG Tbcr Commonly known as: Tylenol ER Take 2 Tablets by mouth in the morning. Albuterol Sulfate (2.5 MG/3ML) 0.083% nebulizer solution Commonly known as: Proventil ONE VIA NEBULIZER EVERY 4 HRS NEEDED FOR COUGH, WHEEZE, SHORTNESS OF BREATH Calcium + D 600-200 MG-UNIT Tabs Generic drug: Calcium Carbonate-Vitamin D Take by mouth at bedtime . Collagen Hydrolysate Powd Use as directed . Cranberry 250 MG Tabs Take by mouth 1 Tablet daily . Fish Oil 1000 MG Capsule One each day Fluticasone Furoate 27.5 MCG/SPRAY nasal spray Commonly known as: Flonase Sensimist Administer 2 Sprays into nostril daily. Loratadine 10 MG Cap Take 1 Capsule by mouth as needed for Allergies. metoprolol succinate XL 25 MG Tb24 Commonly known as: toPROL XL TAKE ONE TABLET BY MOUTH EVERY MORNING montelukast 10 MG Tablet Commonly known as: Singulair Take 1 Tablet by mouth in the morning. Multivitamin Tabs daily Nasal Saline 0.65 % Soln 2 squirts each nostril morning and night and every 2-4 hrs as needed for nasal dryness or congestion omeprazole 20 MG Cpdr Commonly known as: PriLOSEC TAKE ONE CAPSULE BY MOUTH TWICE A DAY THIRTY MINUTES BEFORE BREAKFAST AND EVENING MEAL ondansetron ODT 4 MG Tbdp Commonly known as: Zofran Place 1 Tablet on tongue as needed. Osteo Bi-Flex Adv Triple St Tablet Take by mouth at bedtime . Peak Flow Meter Gwen Use daily to track asthma symptoms. Prolia 60 MG/ML injection Generic drug: Denosumab Inject 60 mg under the skin every 6 months. rosuvastatin 20 MG Tablet Commonly known as: Crestor TAKE ONE TABLET BY MOUTH AT BEDTIME Trelegy Ellipta 200-62.5-25 MCG/ACT Aepb Generic drug: Zxiityidfeh-Nvwoxigasmcc-Goxpjdwrqk Inhale 1 Puff by mouth every evening. Vitamin D 1000 UNIT Capsule Take 2 Capsules by mouth at bedtime. STOP taking these medications Acidophilus Lactobacillus Caps ertapenem INJ (AMBULATORY) Commonly known as: INVanz Loperamide 2 MG Tablet Commonly known as: Immodium (A-D) Mucinex 600 MG Tb12 Generic drug: guaiFENesin ER SCHEDULED FOLLOW-UP: Future Appointments Appt Date/Time Provider Department 04/04/2023 11:15 [address]1 [facility] Radiology [facility] 04/07/2023 1:40 PM [facility] 11:00 AM [facility] Radiology, [facility] 05/26/2023 3:30 PM Gigi Colby DO General Surgery, [place] 06/02/2023 1:00 PM [place], Nurse Annual Wellness Visit [address] [facility] 06/09/2023 11:30 AM Lydia Zafar PA-C Allergy/Immunology [facility] 07/28/2023 10:00 AM Devendra Shepherd CRNP Rheumatology [facility] Outpatient Follow Up SLEEP MEDICINE REFERRAL OP [if formal consult required] Other Information Indwelling Devices: LINES None Vital Signs (last recorded): Most Recent Systolic BP: 120 mmHg (04/03/23 1038) Most Recent Diastolic BP: 56 mmHg (04/03/23 1038) Pulse: 98 (04/03/23 1038) Resp: 18 (04/03/23 1038) Most Recent Temperature: 36.72 C (04/03/23 0600) Weight: 65.3 kg (143 lb 15.4 oz) (04/03/23 0600) SpO2: 95 % (04/03/23 1038) O2 flow rate: 0 L/MIN (04/03/23 1038) Allergies: Salicylates Activity: as tolerated Diet: cardiac diet Code status (this admission): Full Code Discussion of adv directives occurred with - adult: Patient Condition on Discharge: stable Isolation status: None Cognition: normal HOSPITAL CONSULTS ORDERED: INFECTIOUS DISEASE CONSULT IP GASTROENTEROLOGY CONSULT IP REFERRING PHYSICIAN: Ref: DC WEBBER[[id number]] [address] [place] [address] (office) [phone] (fax) PRIMARY CARE PROVIDER: PCP: Manoj Weber DO [address] [facility] [address] (office) [phone] (fax) Note: To contact a physician responsible for this patients hospital care, please call [employer] [phone]. I certify this patient is confined to the home and needs intermittent residential care, physical therapy and/or speech therapy, or continues to need occupational therapy. The patient is under my care and I have authorized services on this plan of care. The clinical findings of decrease in functional mobility secondary to decreased strength, decreased balance, and decreased endurance due to recent hospitalization and overall medical condition support the need for home health, and the patientdemonstrates a considerable and taxing effort when attempting to leave the home. The patient had a rgcw-jh-kzet encounter with an allowed provider type on 04/03/23 and the encounter was related to the primary reason for home health care. Under situations in which I am an acute/post acute facility physician who will not be following the patient's plan of care, I authorized services on this plan ofcare and I transfer the patient for plan of care certification to the primary care physician named below who will follow the patient and update the plan of care. Primary care physician Manoj Weber DO I spent a total of 45 minutes providing discharge day management for this patient. The management included final examination of the patient, discussion of the hospital stay with the patient and/or caregivers, and preparation of discharge records, prescriptions, and referral forms that relate to thepatient's hospital stay. This time is reflective of my part in the discharge day management as documented in the summary and notes, and doesn't include resident or other providers time providing the above to the patient. documented in this encounter Discharge Instructions * Discharge Instr - AVS* Beverly Osorio DO - 04/03/2023 5:53 AM EST Discharge Date: 04/03/2023 The information below provides you with the instructions and the list of medications you need to betaking following discharge from the hospital. If you have any questions, please ask before leaving. If you have questions after leaving, you can reach us at the numbers below. YOUR HOSPITAL PROVIDERS: Discharging Provider: Maryann Ponce, DO Beverly Osorio, DO Paul Malone DO Provider Department: Hospital Medicine To reach this Provider Tuesday through Tuesday (8:00 AM to 4:30 PM) for any questions or test results: Call [phone] For after-hours concerns: Call [phone] and have your provider paged, or the provider engineer/conductor for the Department of Hospital Medicine paged. Please note, the discharging provider will not be able to provide you with any medications refills.Please discuss these with your primary care provider. Worsening Symptoms: If you have new symptoms, or your symptoms get worse, please contact your Discharge Provider or Primary Care Provider (PCP). If these providers are not available, you can go to your local [facility] or Urgent Care Clinic during their business hours. In an EMERGENCY situation: Call [phone] or go to the nearest emergency room. A BRIEF SUMMARY OF YOUR HOSPITAL STAY: You were transferred from [facility] to [facility] to be evaluated by our gastroenterology team for a procedure to drain an abscess in your colon. You were continued on IV antibiotics. The procedure was attempted but not able to be completed due to the severe inflammation seen in your colon. The interventional radiology team attempted to drain the abscess in an alternative way, but was not done because the abscess had mostly resolved and self-drained. Your PICC line was removed and we were able to discharge you on 04/03/2023 on oral antibiotics. Your main diagnosis at discharge was: Acute diverticulitis complicated by vickie- diverticular abscess Operations & Procedures performed: Endoscopic abscess drainage (unable to be completed due to inflammation in the colon) Complications: none significant Inpatient test results that are pending at discharge: none Advance Directive Documented: Advance Directive Does the Patient have an Advance Directive? No YOUR FOLLOW UP APPOINTMENTS: Primary Care Provider Information: PCP: Manoj Weber DO [address] / [facility] [id number] (office) [phone] (fax) An appointment was requested with your PCP (Manoj Weber DO) within 7 days. (Please take this form to this visit with your primary care physician.) You need the following studies in the future: as per your primary physician INSTRUCTIONS: Diet: Heart healthy diet; BRAT diet then advance as tolerated Activity: As tolerated Medications: START -oral Ciprofloxacin and oral augmentin (antibiotics to treat the infection in your colon) -you tolerated augmentin and it's IV form zosyn while you were in the hospital without allergic issues STOP -Ertapenem (this was replaced with the above oral antibiotics) Additional Instructions: - Call your primary care physician or seek medical attention if you develop fevers, chills, weakness, severe abdominal pain, diarrhea documented in this encounter Progress Notes * Maryann Ponce DO - 04/02/2023 2:18 PM EST Images from the original note were not included. [facility] B334/A INTERVAL HISTORY: No major overnight events. Denies any abdominal pain. Still with poor appetite but tolerating meals without issues. No fevers or chills. Eager to go home to her family. Passing flatus and having soft BMs. Objective Physical Exam Most Recent Vital Signs: BP: 128 mmHg/80 mmHg (04/02/23 0600) Pulse: 93 (04/02/23 0600) Temp: 37 C (04/02/23599) Resp: 18 (04/02/23 06) SpO2: 95 % (04/02/23599) General: NAD, afebrile, comfortable in room air HEENT: anicteric, EOMI, normal conjunctivae Lungs: normal respiratory effort Abdomen: soft, benign Skin: warm, dry Neuro: awake, alert, appropriate responses, follows commands, grossly non-focal Power PICC Single Lumen Right;Upper Arm (Active) Number of days: 18 STUDIES: Encounter Orders Labs and other studies reviewed with pertinent findings noted below: Na+ 140, SCr 0.6 WBC 4.9k, Hb 10 04/01/23 lower EUS Impression: 77 yrs old female with diverticulitis and vickie-diverticular abscess on medical management, now with enlarging abscess, presents for EUS-guided transrectal abscess drainage: - Severe diverticulosis in the sigmoid colon with narrowing of the colon in association with the diverticular opening, diverticular spasm, vickie-diverticular erythema, and petechia, consistent with known ongoing diverticulitis. COMMENT: Unable to pass echoendoscope to the area of the colon to find the pericolonic abscess due to severe diverticular narrowing from active diverticulitis, thus EUS-guided transrectal abscess drainage was not technically feasible. Assessment and Plan IMPRESSION : Principal Problem: Colonic diverticular abscess Active Problems: Atherosclerosis of [place] coronary artery of [place] heart without angina pectoris Asthma, mild persistent Gastroesophageal reflux disease without esophagitis Age-related osteoporosis without current pathological fracture Status post cholecystectomy Nocturnal hypoxia Resolved Problems: * No resolved hospital problems. * DIFFERENTIAL AND PLAN: 77-year-old female with history of acute diverticulitis complicated by vickie- diverticular abscess. I discussed the case with Dr. Oates of ID (on-call) and Dr. Joyce from IR. CT-guided drainagewas aborted on 04/01/[address] performed at that time showed no abscess to drain. They think that the manipulation by the lower EUS by GI may have caused the abscess to self drain. We will switch the patient to oral ciprofloxacin and metronidazole. Plan for a 10 day course at this time. She will need close follow-up to monitor for continued clinical improvement with low threshold to repeat imaging to ensure appropriate management. If she fails again, she will need to return for IV therapy. Discussed with the patient's daughter and at bedside. Plan to remove the PICC line and hopefully discharge the patient to home tomorrow. PHARMACOLOGIC VTE PROPHYLAXIS: hEParin CODE STATUS: Full Code EXPECTED DISCHARGE DATE: No information available I spent a total of 55 minutes providing care for this patient. Management included assessment and examination of the patient and detailed review and preparation of records. More than half of my time was spent counseling the patient or family and coordinating care for the patient on the floor. * Galileo Babcock MD - 04/01/2023 7:39 AM EST PROGRESS NOTE - Gastroenterology Service [facility] [address] Name: Ro Serrano Date: 04/01/2023 Time: 7:39 AM SUBJECTIVE: Patient seen and examined. Chart reviewed. Pt is seen and examined. She was NPO for flex sig today. Reports abdominal pain is improved. Denies any nausea, vomiting, abdominal distention. He is afebrile today with stable vitals. ROS: Negative unless otherwise stated above. OBJECTIVE: Vital Signs Last 24 Hours: Systolic BP: Most Recent Systolic BP Av mmHg Min: 134 mmHg Max: 138 mmHg Temperature: Most Recent Temperature Av.4 C Min: 37 C Max: 37.72 C Pulse: Pulse Av.7 Min: 95 Max: 106 Respirations: Resp Av.3 Min: 18 Max: 19 SpO2: SpO2 Av.3 % Min: 91 % Max: 100 % Constitutional: No acute distress. Chest: CTA bilat. No wheezing or rhonchi. GI: Soft, nontender, nondistended abdomen. BSx4. Extremities: No edema. Neurology: Alert and oriented to person, place and time. LABS: Reviewed in [facility]. Latest Reference Range & Units 04/01/23 07:14 WBC 4.00 - 10.80 K/uL 4.41 HGB 12.0 - 15.3 g/dL 9.6 (L) HCT 36.0 - 45.2 % 30.5 (L) MCV 81.5 - 97.5 fL 90.8 PLT 140 - 400 K/uL 256 IMAGING: Reviewed in [facility]. CT abdomen pelvis: 1. Diverticulitis of the sigmoid colon with an abscess abutting the left aspect of the distal sigmoid colon measuring 3.2 x 2.0 x 3.4 cm. 2. Mild nonspecific gallbladder wall thickening. 3. Small hiatal hernia. 4. Narrowing at the origin of the celiac axis, likely due to a combination of median arcuate ligament compression and atherosclerotic changes. Lower endoscopic EUS - Severe diverticulosis in the sigmoid colon with narrowing of the colon in association with the diverticular opening, diverticular spasm, vickie-diverticular erythema, and petechia, consistent with known ongoing diverticulitis. COMMENT: Unable to pass echoendoscope to the area of the colon to find the pericolonic abscess due to severe diverticular narrowing from active diverticulitis, thus EUS-guided transrectal abscess drainage was not technically feasible. ASSESSMENT: 77-year-old female with hx of nonobstructive CAD, asthma, cholecystitis s/p CCY (03/08/23), recent admission for complicated diverticulitis with abscess previously too small for IR guided drainage and discharged on ertapenem who presented to outside hospital with nausea/vomiting with CT findings notable for enlarging abscess. Imaging was reviewed with advanced endoscopy today, s/p lower endoscopic EUS and flexible sigmoidoscopy. Severe diverticulosis in sigmoid colon with narrowing of colon andspasm. Unable to pass echo endoscope to the area to find pericolonic abscess due to diverticular narrowing and active diverticulitis. So transrectal abscess drainage was not technically feasible endoscopically. RECOMMENDATIONS/PLAN: - Continue antibiotics per ID. - Please consult IR to review imaging and consider drainage since endoscopically it was technicallydifficult to drain the rectosigmoid area pericolonic collections with active diverticulitis. Thank you for the consult. GI will sign off. Please call back with any questions. I have discussed the case with my attending, Dr. Perkins. Galileo Babcock MD, PGY-4 Gastroenterology and Hepatology Associated attestation - Renee Perkins MD - 04/01/2023 8:18 PM EST Attending Attestation: Please obtain IR consult for drainage. ID consult for management of antibiotics. Supportive care I have discussed the patient's management with the medical trainee and agree with the note. Please refer to the documented findings and plan of care. The patient's bedside service today consisted of an evaluation. I was present and confirmed the findings of the history and exam. * Titus Malone DO - 04/01/2023 6:44 AM EST Images from the original note were not included. [facility] HFAM/Endo INTERVAL HISTORY: Ro Serrano is a 77 yr old female with history of CAD, asthma, DLD, GERD, cholecystectomy 03/08, atrial septal aneurysm presenting from [facility] for colonic diverticular abscess. Patient found to have intramural abscess on 03/07 but no drainage at that time due to location and no surgical intervention recommended at that time. Was discharged on 03/17 from [facility] on daily ertapenem but abscess increased in size on 03/28 CT so transferred [place] [facility] [place]. When she does have abdominal pain, feels like contractions in lower abdomen and there is some associated nausea and vomiting. Past two nights has had O2 sat to low 90's and patient SOB today while walking to bathroom. Required O2 supplement. She feels otherwise well and denies any overt abdominal pain, incontinence, fever, chills, LOPEZ, or chest pain. Objective Physical Exam Most Recent Vital Signs: BP: 118 mmHg/73 mmHg (04/01/23 1455) Pulse: 95 (04/01/23 1455) Temp: 37.11 C (04/01/23 1452) Resp: 28 (04/01/23 1455) SpO2: 93 % (04/01/23 145) Constitutional: no acute distress HEENT: normal: normocephalic, atraumatic Eyes: sclera and conjunctiva normal Neck: supple, normal range of motion CV: normal rate and rhythm, no murmur, gallops or rub Chest: normal respiratory effort, lungs clear to auscultation Abdomen: soft, (+) abnormal bowel sounds hypoactive, tenderness to palpation Extremities: no clubbing, cyanosis, or edema, otherwise grossly normal, warm, and dry Neuro: alert, oriented to person, place, and time Psych: normal mood and affect Power PICC Single Lumen Right;Upper Arm (Active) Number of days: 17 STUDIES: Encounter Orders Labs and other studies reviewed with pertinent findings noted below: Laboratory Values: reviewed. -- Brief labs below include the 7 most recent results over the past week. Blood Gas: No results in the last 7 days - inpatent use only Chemistry Panel: Lab results within last 7 days (see chart for full results) Units 04/01/23 0714 03/31/23 0903 03/30/23 0638 03/29/231957 Sodium mmol/L 142 139 139 136 Potassium mmol/L 3.5 3.4* 3.6 3.6 Chloride mmol/L 103 101 104 104 CO2 mmol/L 26 22 25 26 BUN mg/dL 5* 5* 4* 3* Creatinine mg/dL 0.7 0.6 0.7 0.7 Estimated Glomerular Filtration Rate mL/min >90 >90 90 87 Glucose mg/dL 77 73 77 96 Calcium mg/dL 7.6* 7.8* 8.1* 8.7 Magnesium mg/dL -- -- 1.9 2.0 Phosphorus mg/dL -- -- 2.9 2.9 Anion Gap mmol/L 13 16* 10 6* Complete Blood Count: Lab results within last 7 days (see chart for full results) Units 04/01/23 0714 03/31/23 0903 03/30/23 0638 03/29/231957 WBC K/uL 4.41 5.01 6.14 5.94 HGB g/dL 9.6* 9.8* 9.5* 9.3* HCT % 30.5* 31.4* 31.1* 29.6* PLT K/uL 256 253 248 236 MCV fL 90.8 90.2 93.1 91.6 Cardiac Studies: No results in the last 7 days - inpatent use only Coagulation Studies: Lab results within last 7 days (see chart for full results) Units 04/01/23 0714 03/30/23 0638 Prothrombin Time seconds 15.0 14.8 INR 1.2 1.1 Liver Function Panel: Lab results within last 7 days (see chart for full results) Units 03/29/231957 Albumin g/dL 2.3* Protein g/dL 5.0* Bilirubin, Total mg/dL 0.5 Bilirubin, Direct mg/dL 0.2 AST U/L 16 ALT U/L 9* Alkaline Phosphatase U/L 70 Infectious Studies: Lab results within last 7 days (see chart for full results) Units 03/29/231957 Lactate mmol/L 1.1 Cultures: reviewed. No results in the last 7 days - inpatent use only Recent Cultures (2 Weeks) 03/13/2023 03/13/2023 10/28/2017 06/02/2015 06/14/2011 08/15/2009 11/08/2007 07/13/2005 4:19 AM 4:16 AM 4:33 PM 11:00 AM 1:59 PM 2:10 PM 10:50 AM 3:24 PM SPECIMEN DESCRIPTION -- -- URINE CLEAN CATCH URINE BRONCHOALVEOLAR LAVAGE URINE URINE CLEAN CATCH URINE BRONCHOALVEOLAR LAVAGE BRONCHOALVEOLAR LAVAGE BRONCHOALVEOLAR LAVAGE BRONCHOALVEOLAR LAVAGE BRONCHOALVEOLAR LAVAGE CULTURE -- -- MULTIPLE COREY SUGGESTS CONTAMINATION OR COLONIZATION LESS THAN 10,000 COLONIES/ML MIXED COREY NO ACID FAST BACILLI ISOLATED MULTIPLE COREY SUGGESTS CONTAMINATION >100,000 COLONIES/ML ESCHERICHIA COLI LESS THAN 10,000 COLONIES/ML MIXED COREY YEAST NOT CRYPTOCOCCUS ASPERGILLUS SPECIES NOT A. FUMIGATUS 10,000 TO 100,000 COLONIES/ML PHARYNGEAL COREY BLOOD CULTURE GROWTH No growth No growth -- -- -- -- -- -- Radiographic Studies (last 72 hours): reviewed. No imaging results in the last 72 hours Assessment and Plan IMPRESSION : Principal Problem: Colonic diverticular abscess Active Problems: Atherosclerosis of [place] coronary artery of [place] heart without angina pectoris Asthma, mild persistent Gastroesophageal reflux disease without esophagitis Age-related osteoporosis without current pathological fracture Status post cholecystectomy Nocturnal hypoxia Resolved Problems: * No resolved hospital problems. * DIFFERENTIAL AND PLAN: Diverticular abscess Hypomagnesia - resolved Hypokalemia - resolved Hypocalcemia - resolved Abscess measuring 4.8 x 2.7 cm;At [facility] K 2.8, Mg 0.9, Ca 7.2 on admit (03/22) - DC ertepenem for zosyn 4.5g q8h IV for 5 days (ending 04/05) - GI consulted for drainage - Endoscopy today - NPO for procedure -Pending final ID recs s/p drainage - Compazine for nausea - pain management; - Tylenol PRN for mild, oxy 5 mg for moderate, severe - isolyte infusion 75 mL x 12 hrs - all electrolytes have been repleted, monitor closely - nephrology was following along at prior facility, if severe electrolyte disturbances consider consult - monitor BMP CBC mg, phos Nocturnal Hypoxia -Past two nights, SpO2 dropping to low 90s -Required supplemental O2 this morning -Will need outpatient sleep study referral upon discharge Chronic medical conditions Asthma - continue [place], HLD - continue crestor HTN - continue metoprolol GERD - continue omeprazole Osteoporosis - continue vit D PHARMACOLOGIC VTE PROPHYLAXIS: hEParin CODE STATUS: Full Code EXPECTED DISCHARGE DATE: No information available Patient was seen and was examined with Dr. Pocne. Associated attestation - Maryann Ponce DO - 04/01/2023 5:39 PM EST I saw and evaluated the patient today. I have reviewed the trainee note and agree. I spent a total of 40 minutes providing care for this patient. Management included assessment and examination of the patient and detailed review and preparation of records. More than half of my time was spent counseling the patient or family and coordinating care for the patient on the floor. GI attempted EUS-guided vickie-diverticular abscess drainage; however, was unsuccessful due to severediverticular narrowing from active diverticulitis. Discussed with IR for help with possible drainage to help with source control as well as for microbio data to help tailor antibiotic regimen. * Titus Malone, DO - 03/31/2023 6:40 AM EST Images from the original note were not included. [facility] B334/A INTERVAL HISTORY: Ro Serrano is a 77 yr old female with history of CAD, asthma, DLD, GERD, cholecystectomy 03/08, atrial septal aneurysm presenting from [facility] for colonic diverticular abscess. Patient found to have intramural abscess on 03/07 but no drainage at that time due to location and no surgical intervention recommended at that time. Was discharged on 03/17 from [facility] on daily ertapenem but abscess increased in size on 03/28 CT so transferred to [facility] [place]. When she does have abdominal pain, feels like contractions in lower abdomen and there is some associated nausea and vomiting. No acute overnight events and patient has no complaints at this time. Objective Physical Exam Most Recent Vital Signs: BP: 144 mmHg/66 mmHg (03/31/23535) Pulse: 90 (03/31/23535) Temp: 35.22 C (03/31/23535) Resp: 20 (03/31/23535) SpO2: 93 % (03/31/23535) Constitutional: no acute distress HEENT: normal: normocephalic, atraumatic Eyes: sclera and conjunctiva normal Neck: supple, normal range of motion CV: normal rate and rhythm, no murmur, gallops or rub Chest: normal respiratory effort, lungs clear to auscultation Abdomen: soft, (+) abnormal bowel sounds hypoactive, tenderness to palpation Extremities: no clubbing, cyanosis, or edema, otherwise grossly normal, warm, and dry Neuro: alert, oriented to person, place, and time Psych: normal mood and affect Power PICC Single Lumen Right;Upper Arm (Active) Number of days: 16 STUDIES: Encounter Orders Labs and other studies reviewed with pertinent findings noted below: Laboratory Values: reviewed. -- Brief labs below include the 7 most recent results over the past week. Blood Gas: No results in the last 7 days - inpatent use only Chemistry Panel: Lab results within last 7 days (see chart for full results) Units 03/31/23 0903 03/30/2338 03/29/231957 Sodium mmol/L 139 139 136 Potassium mmol/L 3.4* 3.6 3.6 Chloride mmol/L 101 104 104 CO2 mmol/L 22 25 26 BUN mg/dL 5* 4* 3* Creatinine mg/dL 0.6 0.7 0.7 Estimated Glomerular Filtration Rate mL/min >90 90 87 Glucose mg/dL 73 77 96 Calcium mg/dL 7.8* 8.1* 8.7 Magnesium mg/dL -- 1.9 2.0 Phosphorus mg/dL -- 2.9 2.9 Anion Gap mmol/L 16* 10 6* Complete Blood Count: Lab results within last 7 days (see chart for full results) Units 03/31/2390203/30/2338 03/29/231957 WBC K/uL 5.01 6.14 5.94 HGB g/dL 9.8* 9.5* 9.3* HCT % 31.4* 31.1* 29.6* PLT K/uL 253 248 236 MCV fL 90.2 93.1 91.6 Cardiac Studies: No results in the last 7 days - inpatent use only Coagulation Studies: Lab results within last 7 days (see chart for full results) Units 03/30/23637 Prothrombin Time seconds 14.8 INR 1.1 Liver Function Panel: Lab results within last 7 days (see chart for full results) Units 03/29/231957 Albumin g/dL 2.3* Protein g/dL 5.0* Bilirubin, Total mg/dL 0.5 Bilirubin, Direct mg/dL 0.2 AST U/L 16 ALT U/L 9* Alkaline Phosphatase U/L 70 Infectious Studies: Lab results within last 7 days (see chart for full results) Units 03/29/23 1958 Lactate mmol/L 1.1 Cultures: reviewed. No results in the last 7 days - inpatent use only Recent Cultures (2 Weeks) 03/13/2023 03/13/2023 10/28/2017 06/02/2015 06/14/2011 08/15/2009 11/08/2007 07/13/2005 4:19 AM 4:16 AM 4:33 PM 11:00 AM 1:59 PM 2:10 PM 10:50 AM 3:24 PM SPECIMEN DESCRIPTION -- -- URINE CLEAN CATCH URINE BRONCHOALVEOLAR LAVAGE URINE URINE CLEAN CATCH URINE BRONCHOALVEOLAR LAVAGE BRONCHOALVEOLAR LAVAGE BRONCHOALVEOLAR LAVAGE BRONCHOALVEOLAR LAVAGE BRONCHOALVEOLAR LAVAGE CULTURE -- -- MULTIPLE COREY SUGGESTS CONTAMINATION OR COLONIZATION LESS THAN 10,000 COLONIES/ML MIXED COREY NO ACID FAST BACILLI ISOLATED MULTIPLE COREY SUGGESTS CONTAMINATION >100,000 COLONIES/ML ESCHERICHIA COLI LESS THAN 10,000 COLONIES/ML MIXED COREY YEAST NOT CRYPTOCOCCUS ASPERGILLUS SPECIES NOT A. FUMIGATUS 10,000 TO 100,000 COLONIES/ML PHARYNGEAL COREY BLOOD CULTURE GROWTH No growth No growth -- -- -- -- -- -- Radiographic Studies (last 72 hours): reviewed. No imaging results in the last 72 hours Assessment and Plan IMPRESSION : Principal Problem: Colonic diverticular abscess Active Problems: Atherosclerosis of [place] coronary artery of [place] heart without angina pectoris Asthma, mild persistent Gastroesophageal reflux disease without esophagitis Age-related osteoporosis without current pathological fracture Status post cholecystectomy Resolved Problems: * No resolved hospital problems. * DIFFERENTIAL AND PLAN: Diverticular abscess Hypomagnesia - resolved Hypokalemia - resolved Hypocalcemia - resolved Abscess measuring 4.8 x 2.7 cm;At [facility] K 2.8, Mg 0.9, Ca 7.2 on admit (03/22) - DC ertepenem for zosyn 4.5g q8h IV for 5 days (ending 04/05) - GI consulted for drainage - Endoscopy rescheduled for tomorrow - Clear liquids for today and NPO after midnight - Prior to procedure, Hgb > 7.0, INR<2, K>3.5, Platelets >50K, sodium is within 5 points of reference range - Compazine for nausea - pain management; - Tylenol PRN for mild, oxy 5 mg for moderate, severe - isolyte infusion 75 mL x 12 hrs - all elecrolytes have been repleted, monitor closely - nephrology was following along at prior facility, if severe electrolyte disturbances consider consult - monitor BMP CBC mg, phos Chronic medical conditions Asthma - continue [place], HLD - continue crestor HTN - continue metoprolol GERD - continue omeprazole Osteoporosis - continue vit D PHARMACOLOGIC VTE PROPHYLAXIS: hEParin CODE STATUS: Full Code EXPECTED DISCHARGE DATE: No information available Patient was seen and was examined with Dr. Ponce. Associated attestation - Maryann Ponce DO - 03/31/2023 3:24 PM EST I saw and evaluated the patient today. I have reviewed the trainee note and agree. I spent a total of 35 minutes providing care for this patient. Management included assessment and examination of the patient and detailed review and preparation of records. More than half of my time was spent counseling the patient or family and coordinating care for the patient on the floor. * Titus Malone, - 03/30/2023 7:03 AM EST Images from the original note were not included. [facility] B334/A INTERVAL HISTORY: Ro Serrano is a 77 yr old female with history of CAD, asthma, DLD, GERD, cholecystectomy 03/08, atrial septal aneurysm presenting from [facility] for colonic diverticular abscess. Patient found to have intramural abscess on 03/07 but no drainage at that time due to location and no surgical intervention recommended at that time. Was discharged on 03/17 from [facility] on daily ertapenem but abscess increased in size on 03/28 CT so transferred to [facility] [place]. When she does have abdominal pain, feels like contractions in lower abdomen and there is some associated nausea and vomiting. AM: Patient feels some mild abdominal pain but otherwise has no complaints. She just wants to get the procedure over with. Denies any incontinence, bloody stool, fever, or chills. Objective Physical Exam Most Recent Vital Signs: BP: 144 mmHg/69 mmHg (03/30/23 1400) Pulse: 90 (03/30/231736) Temp: 36.89 C (03/30/23 1400) Resp: 16 (03/30/23 1400) SpO2: 95 % (03/30/231736) Constitutional: no acute distress HEENT: normal: normocephalic, atraumatic Eyes: sclera and conjunctiva normal Neck: supple, normal range of motion CV: normal rate and rhythm, no murmur, gallops or rub Chest: normal respiratory effort, lungs clear to auscultation Abdomen: soft, (+) abnormal bowel sounds hypoactive, tenderness to palpation Extremities: no clubbing, cyanosis, or edema, otherwise grossly normal, warm, and dry Neuro: alert, oriented to person, place, and time Psych: normal mood and affect Peripheral Line Lower;Right (Active) Number of days: Power PICC Single Lumen Right;Upper Arm (Active) Number of days: 15 STUDIES: Encounter Orders Labs and other studies reviewed with pertinent findings noted below: Laboratory Values: reviewed. -- Brief labs below include the 7 most recent results over the past week. Blood Gas: No results in the last 7 days - inpatent use only Chemistry Panel: Lab results within last 7 days (see chart for full results) Units 03/30/2338 03/29/231957 Sodium mmol/L 139 136 Potassium mmol/L 3.6 3.6 Chloride mmol/L 104 104 CO2 mmol/L 25 26 BUN mg/dL 4* 3* Creatinine mg/dL 0.7 0.7 Estimated Glomerular Filtration Rate mL/min 90 87 Glucose mg/dL 77 96 Calcium mg/dL 8.1* 8.7 Magnesium mg/dL 1.9 2.0 Phosphorus mg/dL 2.9 2.9 Anion Gap mmol/L 10 6* Complete Blood Count: Lab results within last 7 days (see chart for full results) Units 03/30/2338 03/29/231957 WBC K/uL 6.14 5.94 HGB g/dL 9.5* 9.3* HCT % 31.1* 29.6* PLT K/uL 248 236 MCV fL 93.1 91.6 Cardiac Studies: No results in the last 7 days - inpatent use only Coagulation Studies: Lab results within last 7 days (see chart for full results) Units 03/30/23637 Prothrombin Time seconds 14.8 INR 1.1 Liver Function Panel: Lab results within last 7 days (see chart for full results) Units 03/29/231957 Albumin g/dL 2.3* Protein g/dL 5.0* Bilirubin, Total mg/dL 0.5 Bilirubin, Direct mg/dL 0.2 AST U/L 16 ALT U/L 9* Alkaline Phosphatase U/L 70 Infectious Studies: Lab results within last 7 days (see chart for full results) Units 03/29/231957 Lactate mmol/L 1.1 Cultures: reviewed. No results in the last 7 days - inpatent use only Recent Cultures (2 Weeks) 03/13/2023 03/13/2023 10/28/2017 06/02/2015 06/14/2011 08/15/2009 11/08/2007 07/13/2005 4:19 AM 4:16 AM 4:33 PM 11:00 AM 1:59 PM 2:10 PM 10:50 AM 3:24 PM SPECIMEN DESCRIPTION -- -- URINE CLEAN CATCH URINE BRONCHOALVEOLAR LAVAGE URINE URINE CLEAN CATCH URINE BRONCHOALVEOLAR LAVAGE BRONCHOALVEOLAR LAVAGE BRONCHOALVEOLAR LAVAGE BRONCHOALVEOLAR LAVAGE BRONCHOALVEOLAR LAVAGE CULTURE -- -- MULTIPLE COREY SUGGESTS CONTAMINATION OR COLONIZATION LESS THAN 10,000 COLONIES/ML MIXED COREY NO ACID FAST BACILLI ISOLATED MULTIPLE COREY SUGGESTS CONTAMINATION >100,000 COLONIES/ML ESCHERICHIA COLI LESS THAN 10,000 COLONIES/ML MIXED COREY YEAST NOT CRYPTOCOCCUS ASPERGILLUS SPECIES NOT A. FUMIGATUS 10,000 TO 100,000 COLONIES/ML PHARYNGEAL COREY BLOOD CULTURE GROWTH No growth No growth -- -- -- -- -- -- Radiographic Studies (last 72 hours): reviewed. No imaging results in the last 72 hours Assessment and Plan IMPRESSION : Principal Problem: Colonic diverticular abscess Active Problems: Atherosclerosis of [place] coronary artery of [place] heart without angina pectoris Asthma, mild persistent Gastroesophageal reflux disease without esophagitis Age-related osteoporosis without current pathological fracture Status post cholecystectomy Resolved Problems: * No resolved hospital problems. * DIFFERENTIAL AND PLAN: Diverticular abscess Hypomagnesia - resolved Hypokalemia - resolved Hypocalcemia - resolved Abscess measuring 4.8 x 2.7 cm;At [facility] K 2.8, Mg 0.9, Ca 7.2 on admit (03/22) - Currently on ertapenem Q24h. Will trial zosyn per ID recs and if no adverse rxn, can start full strength zosyn and DC ertapenem - GI consulted for drainage - Endoscopy cancelled today and rescheduled for Tuesday - NPO after midnight tomorrow - tigan Q6h PRN for nausea - Qtc 507 - pain management; - Tylenol PRN for mild, oxy 5 mg for moderate, severe - isolyte infusion 75 mL x 12 hrs - all elecrolytes have been repleted, monitor closely - nephrology was following along at prior facility, if severe electrolyte disturbances consider consult - monitor BMP CBC mg, phos Chronic medical conditions Asthma - continue singulair, trelegy, HLD - continue crestor HTN - continue metoprolol GERD - continue omeprazole Osteoporosis - continue vit D PHARMACOLOGIC VTE PROPHYLAXIS: hEParin CODE STATUS: Full Code EXPECTED DISCHARGE DATE: No information available Patient was seen and was examined with Dr. Ponce. Associated attestation - Maryann Ponce DO - 03/30/2023 6:46 PM EST I saw and evaluated the patient today. I have reviewed the trainee note and agree. I spent a total of 51 minutes providing care for this patient. Management included assessment and examination of the patient and detailed review and preparation of records. More than half of my time was spent counseling the patient or family and coordinating care for the patient on the floor. Discussed with GI during morning rounds - plan for tap water enema and then flex sig. Unfortunatelythe case was cancelled and will have to be rescheduled. Discussed with ID and the plan is to switch ertapenem to pip-tazo for better coverage including enterococcus and pseudomonas. She will still need definitive source control, and GI is on board for possible endoscopic drainage tomorrow vs Tuesday. documented in this encounter H&P Notes * Jaron Rodriguez MD - 04/01/2023 1:32 PM EST Endoscopy Pre-Procedure Assessment Name: Ro Serrano Date: 04/01/2023 Time: 1:32 PM Procedure(s): Endoscopic Ultrasound; with Indication(s) of lower endoscopic ultrasound with staging/sampling of lesions/tissue and EUS-guided transrectal abscess drainage Flexible Sigmoidoscopy; with Indication(s) of EUS-guided transrectal abscess drainage Endoscopy Pre-Procedure Assessment: Prior to the procedure, the patient is identified. The patient's history, medications and allergieshave been reviewed. The patient is competent. The risks and benefits of the proposed procedure and the planned sedation have been discussed with the patient. All questions have been answered and informed consent for the procedure has been obtained. Prior to Admission medications Medication Sig Last Dose Discont. Trelegy Ellipta 200-62.5-25 MCG/ACT Aerosol Powder Breath Activated (Cytcxnchdwj-Ztvmqfsuitur-Iuvtwxgrfg) Inhale 1 Puff by mouth every evening. 03/28/2023 Montelukast Sodium 10 MG Oral Tablet (Singulair) Take 1 Tablet by mouth in the morning. 03/28/2023 Rosuvastatin Calcium 20 MG Oral Tablet (Crestor) TAKE ONE TABLET BY MOUTH AT BEDTIME ertapenem INJ IV (AMBULATORY) Administer 1 g intravenously daily for 21 days. Acidophilus Lactobacillus Oral Capsule Take 1 Capsule by mouth daily. Loperamide HCl 2 MG Oral Tablet (Immodium (A-D)) Take 1 Tablet by mouth 4 times a day as needed forDiarrhea. Ondansetron 4 MG Oral Tablet Disintegrating (Zofran) Place 1 Tablet on tongue as needed. Prolia 60 MG/ML Subcutaneous Solution Prefilled Syringe Inject 60 mg under the skin every 6 months. Omeprazole 20 MG Oral Capsule Delayed Release (PriLOSEC) TAKE ONE CAPSULE BY MOUTH TWICE A DAY THIRTY MINUTES BEFORE BREAKFAST AND EVENING MEAL Albuterol Sulfate (2.5 MG/3ML) 0.083% Inhalation Nebulization Solution (Proventil) ONE VIA NEBULIZER EVERY 4 HRS NEEDED FOR COUGH, WHEEZE, SHORTNESS OF BREATH Metoprolol Succinate ER 25 MG Oral Tablet Extended Release 24 Hour (toPROL XL) TAKE ONE TABLET BY MOUTH EVERY MORNING Acetaminophen ER 650 MG Oral Tablet Extended Release Take 2 Tablets by mouth in the morning. Collagen Hydrolysate Powder Use as directed . Cranberry 250 MG Oral Tablet Take by mouth 1 Tablet daily . Peak Flow Meter Device Use daily to track asthma symptoms. Fluticasone Furoate (FLONASE SENSIMIST) 27.5 MCG/SPRAY nasal spray Administer 2 Sprays into nostrildaily. Loratadine 10 MG Oral Capsule Take 1 Capsule by mouth as needed for Allergies. Cholecalciferol (VITAMIN D) 1000 UNIT Capsule Take 2 Capsules by mouth at bedtime. MUCINEX 600 MG PO TB12 1-2 pills by mouth twice a day for congestion with plenty of water as needed. Do not cut, crush or chew Patient taking differently: Take 1 Tablet by mouth in the morning. FISH OIL 1000 MG PO CAPS One each day NASAL SALINE 0.65 % NA SOLN 2 squirts each nostril morning and night and every 2-4 hrs as needed for nasal dryness or congestion OSTEO BI-FLEX ADV TRIPLE ST PO TABS Take by mouth at bedtime . CALCIUM + D 600-200 MG-UNIT PO TABS Take by mouth at bedtime . MULTIVITAMIN PO TABS daily Review of patient's allergies indicates: Allergen Reactions Amoxicillin Itching Augmentin [Amoxicillin-Pot Clavulanate] Itching Tolerated zosyn with test dose Salicylates Asthmatic reaction (aspirin; no food allergies) BP 147/60 | Pulse 93 | Temp 36.9 C (98.4 F) (Tympanic) | Resp 20 | Ht 1.575 m (5' 2") | Wt 70.1kg (154 lb 8.7 oz) | LMP 08/09/2003 | SpO2 93% | BMI 28.27 kg/m | BSA 1.75 m Physical Exam: Mental Status Examination: alert and oriented. Airway Examination: normal oropharyngeal airway and neck mobility. Respiratory Examination: clear to auscultation. CV Examination: normal. ASA Grade: III - A patient with severe systemic disease. Abdomen: negative This patient has undergone a preprocedural evaluation. A determination has been made to proceed with the planned procedure under [facility] procedural guidelines and the CMS Non-Emergent, Elective Medical Services and Treatment Recommendations (published on 08-14-19). The community and hospital prevalence of COVID-19 has been discussed as well as this patient's specific risks associated with SARS-CoV-19 infection. Based upon the clinical acuity and patient-specific care considerations, this procedure is deemed a Tier II - Intermediate acuity treatment or service with either progression or the threat of progressive disease related to the delay in treatment. Not providing the service has the potential for increasing morbidity or mortality. After reviewing the risks and benefits, the patient is deemed in satisfactory condition to undergo the procedure. The anesthesia plan is to use monitored anesthesia care (MAC). [facility] ENDOSCOPY PRE-PROCEDURE NOTE: EUS-GUIDED TRANSRECTAL/COLONIC ABSCESS DRAINAGE: Patient is a 77 yrs female with symptomatic perirectal abscess seen on CT scan. I discussed the case with patient. Risks, benefits and alternatives (including percutaneous drainage, surgical drainage, or watchful waiting) explained. We discussed the high technical and clinical success of EUS guided drainage. We discussed associated risks of internal drainage including perforation requiring emergent surgical intervention, bleeding requiring emergent interventional radiology intervention, and abdominal pain at time of procedure. Immediate vickie/intraprocedural risks of cardiovascular event, bleeding, bowel perforation, peritonitis, stent migration/misdeployment requiring emergent surgery as well as delayed complications of stent occlusion, or stent migration requiring repeat endoscopic intervention explained to the patient. Patient agrees to the above procedure and a written informed consent for EUS & Flexible sigmoidoscopy obtained from the patient. If bowel prep is inadequate, procedure may need to be aborted in view of patient safety and need for repeat procedure with full bowel prep explained. Jaron Rodriguez MD 04/01/2023 * Jessie Robles PA-C - 03/29/2023 7:05 PM EST Images from the original note were not included. [facility] B334/A PRESENTING PROBLEM: abdominal pain, n/v HPI: Ro Serrano, 77 yr old female, PMHx of CAD, asthma, DLD, GERD, s/p cholecystectomy (03/08), atrial septal aneurysm presenting as a transfer from [facility] for worsening diverticular abscess. Was sent for further evaluation due to OP labs showing hypomagnesia and hypokalemia Patient seen at [facility] for the same on multiple occasions. First noticed on 03/07 was a multiloculated intramural abscess measuring approx 4 x 1.5 cm at [facility]. Patient was then transferred to [facility] for IR drainage, but deemed unsuitable for IR intervention due to intramural location. Gen surg also consulted, no surgical intervention recommended, OP f/up made. Pt was discharged on 03/17 on ertapenem, (still receiving treatments daily). On 03/28, CT showing abscess measuring 4.8 x 2.7 cm, transferred for IR drainage. Went through recent medical history with patient, denies having abdominal pain at this time. When she does have it describes as "labor contractions" to LLQ RLQ. Hasn't had full meal in over a month.Complains of generalized weakness, nausea and vomiting. Did have electrolyte abnormalities at priorfacility likely due to GI loss, but states she is feeling better, just wishes to get this taken care of. Denies hematemesis, hematochezia, fevers, sweats chills, chest pain, shortness of breath, headache, lightheadedness, blurred vision Subjective Patient's past history, medications, and allergies were reviewed. Objective Physical Exam Most Recent Vital Signs: BP: 120 mmHg/58 mmHg (03/29/231902) Pulse: 91 (03/29/231902) Temp: 37.5 C (03/29/231902) Resp: SpO2: 94 % (03/29/231902) Constitutional: no acute distress HEENT: normal: normocephalic, atraumatic Eyes: sclera and conjunctiva normal Neck: supple, normal range of motion CV: normal rate and rhythm, no murmur, gallops or rub Chest: normal respiratory effort, lungs clear to auscultation Abdomen: soft, (+) abnormal bowel sounds hypoactive, tenderness to palpation Extremities: no clubbing, cyanosis, or edema, otherwise grossly normal, warm, and dry Neuro: alert, oriented to person, place, and time Psych: normal mood and affect STUDIES: Encounter Orders Labs and other studies reviewed with pertinent findings noted below: Results for orders placed or performed during the hospital encounter of 03/29/23 CBC Result Value Ref Range WBC 5.94 4.00 - 10.80 K/uL RBC 3.23 3.85 - 5.15 M/uL HGB 9.3 (L) 12.0 - 15.3 g/dL HCT 29.6 (L) 36.0 - 45.2 % MCV 91.6 81.5 - 97.5 fL MCH 28.8 27.0 - 34.0 pg MCHC 31.4 32.0 - 36.0 g/dL RDW 14.5 11.5 - 15.5 % PLT 236 140 - 400 K/uL MPV 9.6 6.6 - 11.1 fL nRBCs 0 <=0 /100 WBCs BASIC METABOLIC PANEL Result Value Ref Range BUN 3 (L) 6 - 20 mg/dL Creatinine 0.7 0.5 - 1.0 mg/dL Estimated Glomerular Filtration Rate 87 >=60 mL/min Sodium 136 135 - 146 mmol/L Potassium 3.6 3.5 - 5.1 mmol/L Chloride 104 98 - 107 mmol/L CO2 26 22 - 32 mmol/L Anion Gap 6 (L) 7 - 15 mmol/L Glucose 96 70 - 120 mg/dL Calcium 8.7 8.4 - 10.2 mg/dL LACTATE Result Value Ref Range Lactate 1.1 0.4 - 2.0 mmol/L HEPATIC FUNCTION PANEL Result Value Ref Range Albumin 2.3 (L) 3.8 - 5.0 g/dL AST 16 10 - 35 U/L Alkaline Phosphatase 70 35 - 130 U/L ALT 9 (L) 10 - 35 U/L Bilirubin, Total 0.5 <=1.2 mg/dL Bilirubin, Direct 0.2 0.0 - 0.3 mg/dL Protein 5.0 (L) 6.0 - 8.3 g/dL *Note: Due to a large number of results and/or encounters for the requested time period, some results have not been displayed. A complete set of results can be found in Results Review. Assessment and Plan IMPRESSION: Principal Problem: Colonic diverticular abscess Active Problems: Atherosclerosis of [place] coronary artery of [place] heart without angina pectoris Asthma, mild persistent Gastroesophageal reflux disease without esophagitis Age-related osteoporosis without current pathological fracture Resolved Problems: * No resolved hospital problems. * DIFFERENTIAL AND PLAN: Diverticular abscess Hypomagnesia - resolved Hypokalemia - resolved Hypocalcemia - resolved Abscess measuring 4.8 x 2.7 cm;At [facility] K 2.8, Mg 0.9, Ca 7.2 on admit (03/22) - transfer from [facility] - Currently on ertapenem Q24h - GI consulted for drainage - NPO after midnight - ID consult - tigan Q6h PRN for nausea - Qtc 507 - pain management; - Tylenol PRN for mild, oxy 5 mg for moderate, severe - isolyte infusion 75 mL x 12 hrs - all elecrolytes have been repleted, monitor closely - nephrology was following along at prior facility, if severe electrolyte disturbances consider consult - monitor BMP CBC mg, phos Chronic medical conditions Asthma - continue singulair, trelegy, HLD - continue crestor HTN - continue metoprolol GERD - continue omeprazole Osteoporosis - continue vit D PHARMACOLOGIC VTE PROPHYLAXIS:hEParin CODE STATUS: Full Code EXPECTED DISCHARGE DATE: No information available Associated attestation - Deb Bullard MD - 03/29/2023 10:45 PM EST I have reviewed the advanced practitioner documentation and agree. I saw and evaluated the patient on date of service referenced in note and have performed the following medically appropriate historyand/or exam: Patient feeling comfortable at the time of my assessment and non-toxic in no distress.Personally reviewed the images of the CT chest abdomen pelvis from 03/28 showing intra- abdominal abscess which I agree looks enlarged compared to the CT done on March 12. Hospitalist discussed with referring provider including subspecialists computer scientist who thinkpatient is most likely amenable to drainage with their techniques. Likely to be doable with Interventional Radiology. Agreed on admission for treatment of intra-abdominal abscess based on this information. . documented in this encounter Procedure Notes * Galileo Babcock MD - 04/01/2023 1:12 PM ESTAssociated Order(s): LOWER ENDOSCOPIC U/S [facility] Patient Name: Ro Serrano Procedure Date: 04/01/2023 1:12 PM Date of : 1945 Admit Type: Inpatient Note Status: Finalized Date of : 1945 Admit Type: Inpatient Age: 77 Room: Endo - Room 8 Gender: Female Note Status: Finalized Procedure: Lower EUS Indications: Suspected fluid collection seen on abdominal/pelvic CT scan, EUS- guided abscess drainage Providers: Jaron Rodriguez MD (Doctor), Renee Perkins (Fellow), Sonia Evans RN, Gaby Bridges LPN Patient Profile: This is a 77 year old female. Refer to note in patient chart for documentation of history and physical. Referring MD: Manoj Calderon DO, Maryann Ponce DO Medicines: Monitored Anesthesia Care Complications: No immediate complications. Procedure: Pre-Anesthesia Assessment: - The supervising physician was present for the entire procedure from scope insertion until scope withdrawal. - Pre-Anesthesia Assessment: - Prior to the procedure, a History and Physical was performed, and patient medications, allergies and sensitivities were reviewed. The patient's tolerance of previous anesthesia was reviewed. - The risks and benefits of the procedure and the sedation options and risks were discussed with the patient. All questions were answered and informed consent was obtained. - Patient identification and proposed procedure were verified prior to the procedure by the physician, the nurse, the expense clerk and the instrumentation engineering technician. The procedure was verified in the endoscopy suite. - See pre-anesthesia H&P in [facility]. - The medication list for this patient has been reviewed prior to the procedure and has been determined that the patient may proceed with the planned study. Any medication changes made as a result of the findings of this procedure have been discussed with the patient and/or passenger service representative at the time of discharge from the department. - Immediately prior to administration of medications, the patient was re- assessed for adequacy to receive sedatives. - After obtaining informed consent, the endoscope was passed under direct vision. All instruments were visually inspected immediately before and after removal from the patient to ensure they are fully intact. - Throughout the procedure, the patient's blood pressure, pulse, and oxygen saturations were monitored continuously. - The supervising physician was present for the entire procedure from scope insertion until scope withdrawal. After obtaining informed consent, the endoscope was passed under direct vision. All instruments were visually inspected immediately before and after removal from the patient to ensure they are fully intact. Throughout the procedure, the patient's blood pressure, pulse, and oxygen saturations were monitored continuously. The [id number] Endoscope ([id number]) was introduced through the anus and advanced to the sigmoid colon for ultrasound. The lower EUS was technically difficult and complex due to multiple diverticula in the colon, poor bowel prep and poor endoscopic visualization. The GIF [id number] Endoscope([id number]) was introduced through the anus and advanced to the sigmoid colon. Findings & Specimens: ENDOSCOPIC FINDING: : Multiple small-mouthed diverticula were found in the sigmoid colon. There was narrowing of the colon in association with the diverticular opening. There was evidence of diverticular spasm. Erythema was seen in association with the diverticular opening. Vickie-diverticular erythema was seen. Petechia were visualized in association with the diverticular opening. There was no evidence of diverticular bleeding. ENDOSONOGRAPHIC FINDING: : The perirectal space was normal. Impression: 77 yrs old female with diverticulitis and vickie-diverticular abscess on medical management, now with enlarging abscess, presents for EUS-guided transrectal abscess drainage: - Severe diverticulosis in the sigmoid colon with narrowing of the colon in association with the diverticular opening, diverticular spasm, vickie-diverticular erythema, and petechia, consistent with known ongoing diverticulitis. COMMENT: Unable to pass echoendoscope to the area of the colon to find the pericolonic abscess due to severe diverticular narrowing from active diverticulitis, thus EUS-guided transrectal abscess drainage was not technically feasible. Recommendation: - [facility]. - Further recommendations per the inpatient GI/Hepatology consult team. - Consider IR consult for percutaneous drainage. Jaron Rodriguez MD 04/01/2023 2:57:10 PM This report has been signed electronically. Renee Perkins, Estimated Blood Loss: Estimated blood loss: none. * Luis Sarmiento MD - 03/29/2023 8:08 PM ESTAssociated Order(s): EKG REASON FOR STUDY: QT prolongation CONCLUSIONS: Normal sinus rhythm ST & T wave abnormality, consider anterior ischemia Prolonged QT interval, consider myocardial disease, electrolytes or drugs Abnormal ECG When compared with ECG of 17-MAR-2023 08:07, ST/T abnormalities less wideapread Ventricular Rate: 82 Atrial Rate: 82 ME Interval: 130 QRS Duration: 78 QT/QTc: 424/496 ms P-R-T [place]: 47 : -5 : 40 degrees documented in this encounter Consult Notes * Christal Jarvis MD - 03/30/2023 8:59 AM ESTAssociated Order(s): INFECTIOUS DISEASE CONSULT IP CONSULT - Infectious Disease [facility] [id number] Name: Ro Serrano Location: [facility] B334/A Date: 03/30/2023 Time: 9:00 AM REQUESTING SERVICE: Kareem desai REASON FOR CONSULT: antibiotic continuation HPI: Mrs. Serrano is a 77 year old woman with medical history of asthma, CAD, HTN, hyperlipidemia and GERDstatus post cholecystectomy on 03/07 who was admitted to [facility] on 03/29 after being transferred from [facility] for worsening diverticular abscess. She was initially admitted to [facility] on 03/13, also after being discharged from [facility] for IR guided drainage of diverticular abscess which was not accessible at that time. Per our recommendations, she was sent out on IVertapenem with duration to be determined based on a follow-up CT scan abdomen and pelvis to be donein 2 weeks from discharge and which was performed at [facility] on 03/28. The CT scan demonstrated increased size of abscess to 4.8 x 2.7 cm. Therefore, she was transferred again to [facility] for possible drainage. On this admission, vitals were within normal limits. Blood workup was not impressive except for normocytic anemia. Id team was consulted for further recommendations and to help with the determination of antibiotics. ALLERGIES: Amoxicillin, Augmentin [amoxicillin-pot clavulanate], and Salicylates PAST MEDICAL HISTORY: Past Medical History: Diagnosis Date Allergic rhinitis 01/02/2003 Anticoagulation management encounter 01/01/2011 ASTHMA, UNSP W/O MENT ST ASTHMAT/ AC EXACERB 04/02/2002 Chronic pharyngitis 2004 Chronic pharyngitis Chronic sinusitis 04/02/2002 COPD (chronic obstructive pulmonary disease) (HCC) Coronary atherosclerosis of [place] coronary artery 03/10/2011 Esophageal reflux 01/02/2003 Osteoporosis 12/23/2005 Primary generalized (osteo)arthritis Sensorineural hearing loss, bilateral 2004 Vertigo 2004 PAST SURGICAL HISTORY: Past Surgical History: Procedure Laterality Date BRONCHOSCOPY, DIAGNOSTIC 06/14/2011 BRONCHOSCOPY DIAGNOSTIC WITH OR WITHOUT WASHING performed by SONAL SAWYER at [facility] COLONOSCOPY, DIAGNOSTIC (RECTUM) 05/18/2010 diverticulosis COLONOSCOPY, DIAGNOSTIC (RECTUM) 06/13/2015 diverticulosis, repeat 5 yrs/COLONOSCOPY FLEXIBLE PROXIMAL DIAGNOSTIC performed by Judd Adams MD at ENDOSCOPY [facility] EGD, FLEXIBLE, W/BIOPSY 06/09/2006 path-no Segundo's; + acid reflux KNEE ARTHROSCOPY, DIAGNOSTIC Dr. Jeronimo ME CHOLECYSTECTOMY N/A 03/08/2023 REPAIR HIP FRACTURE(S), W/FIXATION 12/07/2006 right hip SINUS SURGERY PROCEDURE NEC 01/07/1990 x 2 SOCIAL HISTORY: Social History Tobacco Use Smoking status: Former Packs/day: 1.00 Years: 13.00 Additional pack years: 0.00 Total pack years: 13.00 Types: Cigarettes Quit date: 05/09/1977 Years since quittin.9 Passive exposure: Past Smokeless tobacco: Never Tobacco comments: quit at age 31 Vaping Use Vaping Use: Never used Substance Use Topics Alcohol use: Yes Comment: rarely Drug use: No FAMILY HISTORY and FAMILY STATUS: Family History Problem Relation Age of Onset Hypertension Mother Genitourinary Disorder Mother Colon cancer Mother Multiple Sclerosis Sister (Half) COPD Brother (Half) Other (MVA) Brother (Half) Family Status Relation Status Mo Fa HSIS HSIS Alive HBRO HBRO ROS: Constitutional: No fatigue, no fever or chills HEENT: no sore throat, no nasal discharge Cardiovascular: no chest pain, or palpitations Respiratory: no shortness of breath, no cough Gastrointestinal: Nausea, but no vomiting, lower abdominal pain abdominal pain : No dysuria or hesitancy, no urinary discharge Musculoskeletal/Skin: No muscle aches or rash Neurologic: no dizziness or headache PHYSICAL EXAMINATION: Most Recent Vital Signs: BP: 129 mmHg/56 mmHg (03/30/23599) Pulse: 97 (03/30/23599) Temp: 37 C (03/30/23599) Resp: 16 (03/30/23599) SpO2: 92 % (03/30/23599) Vital Signs Last 24 Hours: Systolic BP: Most Recent Systolic BP Av.3 mmHg Min: 118 mmHg Max: 129 mmHg Temperature: Most Recent Temperature Av.1 C Min: 36.72 C Max: 37.5 C Pulse: Pulse Av.7 Min: 78 Max: 97 Respirations: Resp Av Min: 16 Max: 16 SpO2: SpO2 Av.7 % Min: 92 % Max: 95 % General: Lying in bed comfortably and in no acute respiratory or pain distress. HEENT: head atraumatic. No conjunctival injection and no nasal discharge. Cardiac: Regular heart rate with no murmurs, gallops, or rubs. Both, S1 and S2 are heard. Respiratory: The chest wall is symmetric and without deformity. No signs of respiratory distress. Good bilateral air entry with no wheezes or crackles. Abdominal: Abdomen is soft, not distended with tenderness lower quadrants on deep palpation. Good bowel sounds. Genital/Rectal: No Echevarria in place. Extremities/Skin: Upper and lower extremities with no deformities or abnormalities. Skin is intact without rashes or lesions. Neurological: The patient is awake, alert and oriented to person, place, and time with normal speech. Psychiatric: Appropriate mood and affect. Good judgement and insight. LABS: Labs reviewed. MICROBIOLOGY DATA: No recent relevant microbiological data. IMAGING: No recent relevant imaging. IMPRESSION: 1) Diverticular abscess - secondary to complicated diverticulitis. Abscess increased in size since early Mar despite being on ertapenem. 2) S/P cholecystectomy on 03/07 RECOMMENDATIONS: - Piptazo will be better than Ertapenem in covering all possible organisms including pseudomonas and enterococcus. Therefore, given the Hx for itching to amoxicillin, we will go ahead with a challenge of low dose piptazo and if no rxn, we would recommend stopping ertapenem and starting full dose piptazo. - Plan for colonoscopy by GI likely on Tuesday with potential drainage. - We will adjust plan and antibiotics based on the colonoscopy and Cx results if obtained. - Thank you for consulting ID. We will continue to follow. * Lynette Quiroga MD - 03/30/2023 8:07 AM ESTAssociated Order(s): GASTROENTEROLOGY CONSULT IP CONSULT - Gastroenter[place] [facility] [address] Name: Ro Serrano [place] [facility] B[facility]A Date: 03/30/2023 Time: 8:08 AM REQUESTING SERVICE: Medicine REASON FOR CONSULT: "colonic diverticular abscess " HPI: Ro Serrano is a 77 year old female with hx of nonobstructive CAD, asthma, cholecystitis s/p CCY (03/08/23), recent admission for complicated diverticulitis with abscess previously too small for IR guided drainage and discharged on ertapenem now returning to outside hospital with reported of nausea vomiting CT findings notable for enlarging abscess. Patient was transferred to [facility] for further evaluation and consideration of drainage of abscess. Patient seen and examined at bedside. Patient resting comfortably in bed right now. Patient reported intermittent mild discomfort in her lower abdomen but nothing significant. At present she denies any nausea vomiting but reports she was feeling ill when she initially presented. She is frustrated with her situation and would like this addressed as soon as possible. She denies any fevers or chills. She also admits to increased urination however denies any water discomfort, pain/burning with urination/hematuria. HISTORY: Past Medical History: Past Medical History: Diagnosis Date Allergic rhinitis 01/02/2003 Anticoagulation management encounter 01/01/2011 ASTHMA, UNSP W/O MENT ST ASTHMAT/ AC EXACERB 04/02/2002 Chronic pharyngitis 2004 Chronic pharyngitis Chronic sinusitis 04/02/2002 COPD (chronic obstructive pulmonary disease) ([facility]) Coronary atherosclerosis of [place] coronary artery 03/10/2011 Esophageal reflux 01/02/2003 Osteoporosis 12/23/2005 Primary generalized (osteo)arthritis Sensorineural hearing loss, bilateral 2004 Vertigo 2004 Past Surgical History: Past Surgical History: Procedure Laterality Date BRONCHOSCOPY, DIAGNOSTIC 06/14/2011 BRONCHOSCOPY DIAGNOSTIC WITH OR WITHOUT WASHING performed by SONAL SAWYER at [place]OS[place] [facility] COLONOSCOPY, DIAGNOSTIC (RECTUM) 05/18/2010 diverticulosis COLONOSCOPY, DIAGNOSTIC (RECTUM) 06/13/2015 diverticulosis, repeat 5 yrs/COLONOSCOPY FLEXIBLE PROXIMAL DIAGNOSTIC performed by Judd Adams MD at ENDOSCOPY [facility] EGD, FLEXIBLE, W/BIOPSY 06/09/2006 path-no Segundo's; + acid reflux KNEE ARTHROSCOPY, DIAGNOSTIC Dr. Jeronimo ME CHOLECYSTECTOMY N/A 03/08/2023 REPAIR HIP FRACTURE(S), W/FIXATION 12/07/2006 right hip SINUS SURGERY PROCEDURE NEC 01/07/1990 x 2 Social History: Social History Tobacco Use Smoking status: Former Packs/day: 1.00 Years: 13.00 Additional pack years: 0.00 Total pack years: 13.00 Types: Cigarettes Quit date: 05/09/1977 Years since quittin.9 Passive exposure: Past Smokeless tobacco: Never Tobacco comments: quit at age 31 Vaping Use Vaping Use: Never used Substance Use Topics Alcohol use: Yes Comment: rarely Drug use: No Family History: Family History Problem Relation Age of Onset Hypertension Mother Genitourinary Disorder Mother Colon cancer Mother Multiple Sclerosis Sister (Half) COPD Brother (Half) Other (MVA) Brother (Half) Allergies: Amoxicillin, Augmentin [amoxicillin-pot clavulanate], and Salicylates ROS: Reviewed, negative except as above. PHYSICAL EXAMINATION: Most Recent Vital Signs: BP: 129 mmHg/56 mmHg (03/30/23599) Pulse: 97 (03/30/23599) Temp: 37 C (03/30/23599) Resp: 16 (03/30/23599) SpO2: 92 % (03/30/23599) Vital Signs Last 24 Hours: Systolic BP: Most Recent Systolic BP Av.3 mmHg Min: 118 mmHg Max: 129 mmHg Temperature: Most Recent Temperature Av.1 C Min: 36.72 C Max: 37.5 C Pulse: Pulse Av.7 Min: 78 Max: 97 Respirations: Resp Av Min: 16 Max: 16 SpO2: SpO2 Av.7 % Min: 92 % Max: 95 % General: Patient is awake, alert, oriented x 3, and in no acute distress Head and face: normocephalic and atraumatic Eyes: no scleral icterus; normal lids Heart: nontachycardic Respiratory: normal work of breathing Abdomen: Soft, non-tender. Extremities: No cyanosis, or clubbing. No edema Skin: Warm, dry, intact. Neuro: Alert and oriented x 3. Speech appropriate, moves all extremities. LABS: Latest Reference Range & Units 03/29/23 19:58 03/30/23 06:38 Sodium 135 - 146 mmol/L 136 139 Potassium 3.5 - 5.1 mmol/L 3.6 3.6 Chloride 98 - 107 mmol/L 104 104 CO2 22 - 32 mmol/L 26 25 BUN 6 - 20 mg/dL 3 (L) 4 (L) Creatinine 0.5 - 1.0 mg/dL 0.7 0.7 Estimated Glomerular Filtration Rate >=60 mL/min 87 90 Anion Gap 7 - 15 mmol/L 6 (L) 10 Glucose 70 - 120 mg/dL 96 77 Calcium 8.4 - 10.2 mg/dL 8.7 8.1 (L) Magnesium 1.5 - 2.6 mg/dL 2.0 1.9 Phosphorus 2.5 - 4.8 mg/dL 2.9 2.9 Lactate 0.4 - 2.0 mmol/L 1.1 Protein 6.0 - 8.3 g/dL 5.0 (L) CBC Rpt ! Rpt ! WBC 4.00 - 10.80 K/uL 5.94 6.14 HGB 12.0 - 15.3 g/dL 9.3 (L) 9.5 (L) HCT 36.0 - 45.2 % 29.6 (L) 31.1 (L) MCV 81.5 - 97.5 fL 91.6 93.1 PLT 140 - 400 K/uL 236 248 Albumin 3.8 - 5.0 g/dL 2.3 (L) AST 10 - 35 U/L 16 ALT 10 - 35 U/L 9 (L) Alkaline Phosphatase 35 - 130 U/L 70 Bilirubin, Total <=1.2 mg/dL 0.5 Bilirubin, Direct 0.0 - 0.3 mg/dL 0.2 (L): Data is abnormally low !: Data is abnormal Rpt: View report in Results Review for more information IMAGES: Personally reviewed imaging from [facility] CT performed 03/28/2023 which is notable for abscess which appears to be in the rectum and potentially attainable via flexible sigmoidoscopy. ENDOSCOPIC Hx: Reviewed in [facility] and relevant for : Colonoscopy 06/13/2015 - Diverticulosis in the sigmoid colon. - The examined portion of the ileum was normal. - Internal hemorrhoids. - The examination was otherwise normal on direct and retroflexion views. - No specimens collected. IMPRESSION: Patient is a 77-year-old female with hx of nonobstructive CAD, asthma, cholecystitis s/p CCY (03/08/23), recent admission for complicated diverticulitis with abscess previously too small for IR guided drainage and discharged on ertapenem who presented to outside hospital with nausea/vomiting with CT findings notable for enlarging abscess. Imaging was reviewed with advanced endoscopy today with plans for sigmoidoscopy after tap water enemas potentially endoscopically drain abscess ifappropriate window could be obtained. Unfortunately despite all our efforts due to heavy case burden of emergent cases and time constraints patient could not be completed in endoscopy today. Patient remains afebrile and comfortable at present and on appropriate antibiotics per ID recommendations thus will plan for procedure on Tuesday when endoscopies available. I spoke with patient and explained this unfortunate situation and patient was very understanding. RECOMMENDATIONS/PLAN: - OK for diet per primary - Please keep on clear liquid diet tomorrow. - abx per ID - please make NPO except meds at 2400 tomorrow in anticipation of flexible sigmoidoscopy and possible drainage on Tuesday - Will need tap water enemas early Tuesday morning prior to procedure (ordered) - Please get early AM labs on Tuesday Morning - Please ensure Hgb > 7.0, INR<2, K>3.5, Platelets >50K, sodium is within 5 points of reference range prior to the procedure I have discussed the case with my attending, Dr. Perkins. Lynette Quiroga MD Gastroenterology Fellow, [facility] Associated attestation - Renee Perkins MD - 03/30/2023 9:26 PM EST Attending Attestation: I have discussed the patient's management with the medical trainee and agree with the note. Please refer to the documented findings and plan of care. The patient's bedside service today consisted of an evaluation. I was present and confirmed the findings of the history and exam. documented in this encounter Nursing Notes * Carmen Richard RN - 04/03/2023 11:36 AM EST PICC line removed 39 cm intact. Pressure held until hemostasis achieved. gauze and Tegaderm to site. Pt tolerated well. All questions r/t after care discussed with patient. * Jessie Randall RN - 04/01/2023 6:01 PM EST inspector packer glass container note Name: Ro Serrano Date: 04/01/2023 Time: 175 Procedure: Divertic Abscess Aspiration Patient ID band checked using two identifiers. Patient placed on procedure table, prone position, with comfort measures intact and safety strap in place. Hemodynamic monitoring placed and initiated. Patient denies any current complaints at current time. RT staff prepares and preps for procedure. 175 CT imaging obtained. 1800 Procedure not done per order of Dr. Hernandez. Patient tolerated procedure well without complications. All wires, catheters, sheaths and other devices have been inspected prior to the procedure for damage. This has been confirmed by the scrubbed RT and the operating physician. All items not intended to remain in the patient have been inspected, accounted for and have been removed from the patient atthe end of the procedure. This has been confirmed by the scrubbed RT and the operating physician. Pt did not receive conscious sedation for their procedure. No medications given Please see doctor's operative note for additional details. * Demetrice Ramos RN - 04/01/2023 4:21 PM EST Dual Licensed Skin Assessment completed by Demetrice Oliva and Heavenly Toscano The patient is/has a N/A Skin Breakdown (includes non blanchable erythema): No * Malathi Phillips RN - 04/01/2023 3:35 PM EST DISCHARGE PROGRESS NOTE - ENDOSCOPY [address] [address] Name: Ro Serrano Location[place] [facility] Date: 04/01/2023 Time: 3:35 PM Patient is discharged under the care of : transport and BP3 Report called to Inpatient unit BP3 Nurse Carrie Means of transportation: bed Bronchoscopy: N/A Oxygen support: N/A Per verbal order, the physician has examined the patient, prescribed and verified the charted medication, and certified that she is recovered and may return to the nursing martinez. * Sonia Evans RN - 04/01/2023 1:15 PM EST Procedure being completed under general anesthesia. Please see anesthesia record for medications and vital signs. * Alaina Manning RN - 04/01/2023 12:34 PM EST Patient does not meet criteria for testing. * Tasha Felder RN - 03/29/2023 10:12 PM EST Dual Licensed Skin Assessment completed by Lucy Dugan. The patient is/has a N/A Skin Breakdown (includes non blanchable erythema): No documented in this encounter Miscellaneous Notes * Ancillary Progress Note - Luis Cuellar MSW - 04/03/2023 11:14 AM EST ADULT CARE MANAGEMENT - DISCHARGE NOTE [facility] [address] Name: Ro Serrano Location[place] [facility] Date: 04/03/2023 Time: 2:01 PM The following coordination of care and discharge plan has been coordinated with the care team, patient, family and/or caregiver according to the patients needs and preferences. Discharge Discharge Insurance considerations verified and completed: Yes (04/03/23 1400) Second Notice Important Message from Medicare delivered: Yes (04/03/23 1400) Date Delivered: 04/03/23 (04/03/231399) Was Caregiver/Family/Facility contacted regarding discharge: Yes (04/03/23 1400) Discharge Transportation: Family/Friends drive (04/03/23 1400) Date of scheduled discharge transportation: 04/03/23 (04/03/23 1400) Patient declined post-hospital transition of care recommendation: N/A (04/03/23 1400) Final D/C Plan - Complete at time of D/C Final Discharge Plan (Complete only at time of Discharge): Home - Self Care (04/03/23 1400) Home Medical Care - Admitted Since 03/29/2023 Service Provider Selected Services Address Phone Fax Patient Preferred Last Updated [facility] Healthcare [facility] [address] [facility] [address] [phone] -- Eden Chauhan RN 04/01/2023 0951 Home Medical Care - Episodes Includes Home Medical Care providers with selected services from the active episodes listed below Level 2 Complex Case Management Episode start date: 02/16/2023 There are no active outsourced providers for this episode. Non-Specialty Episode start date: 01/24/2023 There are no active outsourced providers for this episode. Home Medical Care - Prior Encounters Includes Home Medical Care providers with selected services from prior encounters from 12/29/2022 to 04/03/2023 Discharged on 03/17/2023 Admission date: 03/13/2023 - Discharge disposition: Home with Services Service Provider Selected Services Address Phone Fax Patient Preferred Last Updated [facility] Home Health Services [address] [facility] [phone] -- Mary Lou Galeas RN 03/16/2023 1358 Internal Comment last updated by Mary Lou Galeas RN 03/16/2023 1405 As per Tiny in intake, nursing will review and get back to CM. Call back information provided. Soc Tuesday02/16/2023 Narrative: Patient is medically stable to discharge. Patient was to discharge with home infusion but was switched to oral abx per ID recommendations this AM. ANNA has made Connie from [facility] aware and they closed her out, patient has tolerated her PO abx and has had PICC removed so she no longer requires home infusion. ANNA updated [facility]'s answering service, who confirmed they will let nursing know. Reviewed IMM with patient and informed that patient is medically stable for discharge, however, mayhave 4 hours to consider whether they want to appeal discharge. Patient waived waiting those 4 hours and wishes for discharge to occur prior to that time. * Care Plan - Makenzie Ramsey RN - 04/02/2023 3:59 PM EST Clinical Goal(s): pt will get oob to chair today (04/02/23 0800) Possible barriers to meeting goal(s)/advancing plan of care: decreased mobility, hospitalization Stability of the patient: Moderately stable - low risk of patient condition declining or worsening Summary regarding today's goal(s): Met: pt got oob to chair today Recommendations: continue to monitor patient * Progress Notes - Non-Billable - Baudilio Oates, - 04/02/2023 3:39 PM EST BRIEF ON-CALL NOTE Infectious Disease Name: Ro Serrano Date: 04/02/2023 Time: 3:39 PM SITUATION Contacted by Maryann Ponce DO of . Asked to comment re: the possibility of using PO ABX moving forward. The patient wants to leave the hospital today. The patient was not seen byme (I was on-call, covering [facility], on 04/02/2023). HPI The patient was admitted 03/29/2023 for failure to improve an intraabdominal abscess that was beingtreated with ertapenem. The patient was switched to Zosyn with plans to aspirate in IR. PATIENT'S CURRENT STATUS The patient is currently afebrile. Hemodynamics are stable. The WBC count is WNL. No new cultures. MICRO DATA BCX from 03/13 negative CURRENT ABX DOSING INFO Body mass index is 28.27 kg/m. Serum creatinine: 0.6 mg/dL 04/02/23 0755 Estimated creatinine clearance: 54.9 mL/min IMPRESSION IAI RECOMMENDATIONS I discussed the case with Dr. Joyce from IR. They reported that the recent manipulation by GI may have caused the abscess to self-drain - as the CT performed at the time of attempted aspiration was negative. There was no abscess to drain. In that case, I am OK with transitioning to PO cipro plus po metronidazole. The patient will need to be closely monitored because the reason for failing ertapenem is not clear (need for source control vs need to cover other organisms eg PsA and enterococcus). She may need to be re-admitted for IV therapy if her symptoms/repeat imaging worsen on PO therapy. Please discuss with the patient re: the risks/benefits of ciprofloxacin & ensure that the QTc is acceptable. The risks include (but are not limited to) tendon rupture, QTc prolongation, Cdiff, dysglycemia, aortic dissection. Please discuss with the patient re: the risks/benefits of metronidazole. The risks include (but are not limited to) neuropathy and the inability to consume alcohol in anyform for the duration of treatment and for three days after. If the risk profile is not acceptable to you and/or the patient, please contact ID for alternate recommendations. Please touch base with Dr. Jarvis when he returns on 04/04. Unless specifically stated otherwise, all orders are deferred to the primary/requesting service. IDis signing off. Contact us for any new issues. If any workup finalizes after ID signs off, forward the results (this is very important since ID is not automatically notified). * Communication - Davon Joyce MD - 04/01/2023 6:00 PM EST IR Brief Note Pt was brought down to IR suite for aspiration of the sigmoid diverticular abscess. On repeat scan there was no significant collection amenable to aspiration. No intervention performed. Davon Joyce MD, FACP PGY 6 - Fellow Vascular and Interventional Radiology * Communication - Antelmo Hernandez MD - 04/01/2023 5:31 PM EST PRE-SEDATION ASSESSMENT: Pelvic Abscess Aspiration Possible Drainage Diverticular Abscess Level of sedation planned: Moderate Patient's allergies reviewed: Yes H&P Review / Interval Note Documentation: I have reviewed the H&P previously performed, examined the patient today, and there are no new findings. Difficulty with sedation / anesthesia: No Sleep apnea: No History of snoring: No History of difficult intubation: No Decreased ROM neck flexion/extension: No Tracheal deviation: No Decreased ability to open mouth / TMJ: No Loose teeth / dentures / partial: Yes Congenital deformities / abnormalities: No Dysphagia: No Mallampati Classification: II - soft palate, uvula, fauces visible Chest: Clear Heart: Regular Rhythm Adequate Vascular Access: Yes ASA Risk Stratification ([facility]): ASA 2 - Mild systemic disease, no functional limitations The patient was identified and the procedure verified: Yes The patient was reevaluated immediately prior to the sedation: 04/01/2023 5:31 PM Davon Joyce MD, FACP PGY 6 - Fellow Vascular and Interventional Radiology I have discussed the patient's management with the medical trainee and agree with the note. Please refer to the documented findings and plan of care. This patient's visit today consisted of a service. I have reviewed the medical history, physical examination, diagnosis, and plan, as performed by the trainee. Antelmo Hernandez MD * Care Plan - Demetrice Ramos RN - 04/01/2023 2:36 PM EST Problem: Safety & Risk for Injury Goal: Patient will remain free from injury. Outcome: Progressing Problem: Actual & Potential for Falls Goal: Patient will remain free of falls. Outcome: Progressing Clinical Goal(s): remain free from falls (04/01/23 0700) Possible barriers to meeting goal(s)/advancing plan of care: Environment Stability of the patient: Moderately stable - low risk of patient condition declining or worsening Summary regarding today's goal(s): Met: patient remained free from falls during shift Recommendations: Hourly rounding, fall prevention protocol * Ancillary Progress Note - Eden Chauhan RN - 04/01/2023 9:25 AM EST CARE MANAGEMENT - ADULT TRANSITION NOTE [facility] [phone] Name: Ro Serrano Location[place] [facility] B334/A Date: 04/01/2023 Time: 9:25 AM Risk Stratification Risk Stratification Readmission Risk Score: 16.56 (04/01/23 0800) AM-PAC Score With Stairs : 22 (03/31/23 1800) Caregiver Information Patient Contacts Name Relation Home Work Mobile Kodi Hatch Adult Child [phone] Loida Serrano Spouse [phone] Transition of Care Checklist Transition of Care Checklist (aka Readmission Risk Score) Readmission Risk Score: 16.56 (04/01/23 0800) Narrative: Patient was discussed during boost this AM. Per IDT, patient is not medically ready. GI to take patient down to drain abscess. Per service, waiting on ID to see if patient will transition to po abx, but CM messaged pollo magaña and called [facility] to discuss possible d/c over w/e if still needs iv abx.Per service, patient also requiring new oxygen, so they are going to order a noc ox to determine ifneeds new oxygen at home. CM will continue to follow. Anticipated Transportation at Discharge: family Patient/Family Expectations: Home with correctional officer captain services and possibly new oxygen Transition Planning Additional Considerations: Care Management will continue to monitor and assist with discharge planning needs * Care Plan - Fang Ramsay RN - 04/01/2023 12:46 AM EST Clinical Goal(s): pt will remain free from falls (04/01/23 0000) Possible barriers to meeting goal(s)/advancing plan of care: environment Stability of the patient: Moderately stable - low risk of patient condition declining or worsening Summary regarding today's goal(s): Met: no fall this shift Recommendations: assist oob * Care Plan - Demetrice Ramos RN - 03/31/2023 5:26 PM EST Problem: Safety & Risk for Injury Goal: Patient will remain free from injury. 03/31/2023 1725 by Demetrice Ramos RN Outcome: Progressing 03/31/2023 1724 by Demetrice Ramos RN Outcome: Progressing Problem: Actual & Potential for Falls Goal: Patient will remain free of falls. 03/31/2023 1725 by Demetrice Ramos RN Outcome: Progressing 03/31/2023 1724 by Demetrice Ramos RN Outcome: Progressing Clinical Goal(s): remain free from falls (03/31/23 0657) Possible barriers to meeting goal(s)/advancing plan of care: Environment Stability of the patient: Moderately stable - low risk of patient condition declining or worsening Summary regarding today's goal(s): Met: patient remained free from falls during shift Recommendations: Hourly rounding, fall prevention protocol * Care Plan - Benito Fortune RN - 03/30/2023 4:16 PM EST Clinical Goal(s): Pt will remain free from falls/injuries for shift. (03/30/23 1500) Possible barriers to meeting goal(s)/advancing plan of care: Pt has weakness. Stability of the patient: Moderately stable - low risk of patient condition declining or worsening Summary regarding today's goal(s): Met: Pt remained free from falls/injuries for shift. Recommendations: Continue hourly rounds and maintain fall precautions. * Ancillary Progress Note - Susanne Gong RDN - 03/30/2023 2:42 PM EST CLINICAL NUTRITION ADULT RISK ASSESSMENT [address] [address] Name: Ro Serrano [place] [facility] [place] Date: 03/30/2023 Time: 2:42 PM How patient was identified (select 2): date and Name Ro Serrano is a 77 year old female being assessed for clinical nutrition risk related to reduced dietary intake and significant unintentional weight loss. Primary diagnosis: Colonic diverticular abscess. Other pertinent information: The pt reported that her appetite was decreased for about a month. No nausea, vomiting, constipation and diarrhea currently but did have nausea prior to admission. No known food allergies. No issues with chewing or swallowing. Anthropometrics Measurements Admission weight (for dietitians): 70 kg Height: 157.5 cm (5' 2") (03/29/23 2200) Weight: 70.1 kg (154 lb 8.7 oz) (03/30/23 0600) BMI: 28.5 (03/29/232199) Usual Body Weight or EDW for Dialysis Patients: 160 lbs (pt reported); 70-75 kg Diet: NPO Previously followed diet: Regular Food Allergies/Intolerances: None Oral Nutrition Supplement (ONS): None Pertinent medications/vitamins/minerals/supplements: Vitamin D3 (1000 units) RISK FACTORS: Adult Energy Intake: Less than 75% of estimated energy requirement for greater than 1 month (moderate/severe, chronic illness). Interpretation of Weight Change: No recent/significant weight change Skin: Intact NUTRITION RISK CATEGORY: Nutrition Risk Category: Low/Moderate (0-1 factors) Clinical Nutrition Recommendations: Diet: Advance diet when clinically feasible NUTRITION INTERVENTION/PLAN: Continue to monitor NPO/clear liquid status Will follow and adjust nutritional plan as medical condition requires. Please contact for change(s)in patient condition requiring earlier intervention. Susanne Gong RDN, LDN Clinical Nutrition Services Phone: [phone] [place] [facility] * Ancillary Progress Note - Eden Chauhan RN - 03/30/2023 9:37 AM EST HOME HEALTH/HOSPICE REFERRAL FORM CARE MANAGEMENT [facility] [address] Referred By: Eden Chauhan RN Admission Date: 03/29/2023 Discharge Date: Discharge Time: evening Start Date: 24-48 hours post d/c Agency Referred To: [facility] - Phone: [phone]; Fax: [phone] PATIENT INFORMATION: Name: Ro Serrano Address: [address] [place] [id number] : 1945 (home) SSN: [id number] County: [place] Emergency Contacts: Extended Emergency Contact Information Primary Emergency Contact: Kodi Peralta Mobile Relation: Adult Child Fishing Hand needed? No Secondary Emergency Contact: Loida Serrano Mt Address: [address] [place] [id number] [facility] Relation: Spouse Hard of hearing? Yes Fishing Hand needed? No MEDICAL INFORMATION: Principal Diagnosis: Colonic diverticular abscess Other Diagnosis: See attached History and Physical Surgery and Dates: Past Surgical History: Procedure Laterality Date BRONCHOSCOPY, DIAGNOSTIC 06/14/2011 BRONCHOSCOPY DIAGNOSTIC WITH OR WITHOUT WASHING performed by SONAL SAWYER at ENDOSCOPY [facility] COLONOSCOPY, DIAGNOSTIC (RECTUM) 05/18/2010 diverticulosis COLONOSCOPY, DIAGNOSTIC (RECTUM) 06/13/2015 diverticulosis, repeat 5 yrs/COLONOSCOPY FLEXIBLE PROXIMAL DIAGNOSTIC performed by Judd Adams MD at ENDOSCOPY [facility] EGD, FLEXIBLE, W/BIOPSY 06/09/2006 path-no Segundo's; + acid reflux KNEE ARTHROSCOPY, DIAGNOSTIC Dr. Jeronimo ME CHOLECYSTECTOMY N/A 03/08/2023 REPAIR HIP FRACTURE(S), W/FIXATION 12/07/2006 right hip SINUS SURGERY PROCEDURE NEC 01/07/1990 x 2 Diet: Adults: As tolerated Allergies: Amoxicillin, Augmentin [amoxicillin-pot clavulanate], and Salicylates Isolation Type: None Activity Restrictions: Activity as tolerated Isolation For: None HOME CARE ORDERS: (Discipline and Frequency): VARUN SN Medications Dose, Frequency, & Route: Refer to Physician's Discharge Instructions Equipment and Supplies: N/A Ordering Physician and Contact Information: Dr Ponce Comments: PCP: PCP: [place] [address] [phone] D/C Physician: Dr Ponce Insurance: See attached facesheet. * Ancillary Progress Note - Eden Chauhan RN - 03/30/2023 9:24 AM EST CARE MANAGEMENT - ADULT INITIAL SCREENING [address] [address] Name: Ro Serrano [place] [facility] [place]A Date: 03/30/2023 Time: 9:24 AM Patient Class: Inpatient (03/30/239[address]) Discussed patient with the interdisciplinary care team. This Cook Chief performed a chart review and met with patient at bedside to complete admission screen and assessed needs for transition planning. The customer care specialist role and services were explained and emotional support was provided. 30 Day Readmission Screening 30 Day Readmission Readmission within 30 days?: Yes, the previous hospital stay was at THIS [facility] (03/30/23922) Where were you readmitted from?: Home with home care (including Assisted Living, Correction, Personal Detention) (03/30/23922) Did you see your doctor before coming back to the hospital?: No, appointment was scheduled but had to return to hospital before the appointment (03/30/23922) Did you feel ready when you left the hospital?: Yes (03/30/23922) Did you have any difficulty obtaining your prescriptions/medicines when you left the hospital?: No (03/30/23922) Did you take ALL of your medicines, as directed?: Yes (03/30/23922) Chief Complaint: No chief complaint on file. Prior Living Arrangements What was your living situation prior to admission/observation?: With Spouse;Independently () Do you have any children, pets, or other dependents that you are currently caring for?: No (03/30/23922) Living Quarters: House (03/30/23922) How many stories is the dwelling?: Three or more Stories (03/30/23922) Number of steps to enter living quarters:: 2 (03/30/23922) Location of bathroom(s): All floors or Single story dwelling (03/30/23922) Do you have serious difficulty walking or climbing stairs? (5 years old or older): No (03/30/23922) History of falling: No (03/29/232328) Prior Level of Functioning Describe the patient's ability prior to admission/observation to perform ADLs: Performs independently (03/30/23922) Describe the patient's mobility status prior to admission: Patient ambulates independently (03/30/23922) Patient uses assistive device: No (03/30/23922) If yes, choose:: Walker (03/29/23 7615) Caregiver Information Patient Contacts Name Relation Home Work Mobile Kodi Peralta Adult Child [phone] Loida Serrano Spouse [phone] Risk Stratification/Psychosocial/Care Gaps Risk Stratification Readmission Risk Score: 12.17 (03/30/23 0800) AM-PAC Score With Stairs : 19 (03/29/23 0467) Comments: [facility] patient was recently d/c with [facility]. Patient lives at home with spouse in 3 story house with 2 KRISTIN. Patient is independent with ADLs and uses no dme but has cane and walker if needed. No past rehab or snf stays. Patient drives short distances, but family also transports. Prior to Admission Services Services Prior to Admission [facility] Services (Services received within the last 30 days with exception, Psych within last two years): Home Health;Home Infusion (03/30/23922) List All [facility] (03/30/23922) Agency contacted: Yes (03/30/23922) [facility] Transportation (Services received within the last 30 days): Family/Friends Personal Vehicle;Patient drives self (03/30/23922) Outpatient Cook Chief: no, not applicable Patient/Family Expectations: home with correctional officer captain services Anticipated Disposition Plan & Post Acute Needs Anticipated Plan Anticipated D/C disposition per abbreviated screening: Post hospitalization needs identified, continue to monitor for transition planning (03/30/23922) For further screening information, please refer to the Care Management flow document. documented in this encounter Plan of Treatment Upcoming Encounters Date Type Department Care Team (Late st Contact Info) Description 04/04/2023 11:15 AM EST Imaging Radiology [address] [place] [address] 04/07/2023 1:40 PM EST Office [place]ious Disease, [place] [address] [place] [address] Baudilio Oates, [address] [facility] [place] [address] 05/04/2023 11:00 AM EST Imaging Radiology, [facility] [address] [place] [address] 05/26/2023 3:30 PM EST Office Visit General Surgery, [place] [address] [place] [address] Gigi Colby, [address] [place] [address] 06/02/2023 1:00 PM EST Nurse Only Ancillary [address] [facility] [address] [place] [address] College, Nurse Annual Wellness Visit [address] [address] 06/09/2023 11:30 AM EST Office Visit Allergy/Immunology [facility] [address] [place] [address] Lydia Zafar PA-C [address] [facility] [place], [place] [address] 06/14/2023 2:30 PM EST Hospital Encounter ENDO [facility], Endoscopy Room [facility] [address] [place] [phone] Judd Adams MD [address] [place] [address] 06/14/2023 2:30 PM EST - 06/14/2023 3:00 PM EST Surgery ENDO [facility], Endoscopy Room [facility] [address] [place] [phone] Judd Adams MD [address] [place] [address] COLONOSCOPY FLEXIBLE PROXIMAL DIAGNOSTIC 07/28/2023 10:00 AM EDT Office Visit Rheumatology [facility] [address] [facility] [place] [address] Devendra Shepherd CRNP [facility] [place] [address] Pending Results Name Type Priority Associated Diagnoses Date /Time IR ASPIRATION ABSCESS/COLLECTION Medical Imaging Routine 04/01/2023 6: 21 PM EST Scheduled Procedures Name Priority Associated Diagnoses Date/Ti me COLONOSCOPY FLEXIBLE PROXIMAL DIAGNOSTIC Diverticulitis Abnormal CT of the abdomen Family history of colon cancer 06/14/2023 2:30 PM EST Scheduled Referrals Name Type Priority Associated Diagnoses Orde r Schedule SLEEP MEDICINE REFERRAL OP Referral Within 30 days (routine) Nocturnal hypoxia Ordered: 04/01/2023 HOME HEALTH REFERRAL OP Referral Within 3 days (urgent) Colonic diverticular abscess Diverticulitis of sigmoid colon Ordered: 04/03/2023 Health Maintenance Due Date Last Done Comments [...] D LEVEL ONCE IN A LIFETIME-USE SMARTSET# [id number] Completed 05/13/2021, 09/01/2012, 01/30/2009 Albumin/Creatinine Ratio Discontinued [...] Procedure Name Priority Date/Time Associated Diagnosis Comments BASIC METABOLIC PANEL Routine 04/03/2023 8:44 AM EST CBC Routine 04/03/2023 8:44 AM EST BASIC METABOLIC PANEL Routine 04/02/2023 7:55 AM EST CBC Routine 04/02/2023 7:55 AM EST IR ASPIRATION ABSCESS/COLLECTION Routine 04/01/2023 6:21 PM EST Procedure Note - Antelmo Hernandez MD / Davon Joyce MD - 04/01/2023 6:21 PM ESTThis note is in progress. PROCEDURE: CT-guided aspiration and possible drainage placement in the pelvicabscess. INDICATION: 77-year-old female with history of sigmoid diverticularabscess. SUPERVISING PHYSICIAN: Antelmo Hernandez MD. OPERATING PHYSICIAN: Davon Joyce MD. SUPPORTING PROVIDER (SUPERVISOR JEWELRY DEPARTMENT): RT Que. . CONSENT: After a detailed discussion of the procedure, risks, benefits andalternative treatment options, informed consent was obtained. TIME OUT: A time out procedure was performed. The patient's identificationwas verified. Informed consent with agreement of procedure, site andposition was obtained. All necessary equipment was available prior toprocedure. CONTRAST: No contrast was administered. COMPLICATIONS: None. ANESTHESIA: N/A SEDATION TIME: N/A MEDICATIONS: See MAR PROCEDURE DESCRIPTION: After survey CT images of the pelvis wereperformed, it was noted that the previously noted collections haveresolved significantly and there is no target for aspiration / drainplacement. FINDINGS: No significant pelvic collection amenable to aspiration. IMPRESSION IMPRESSION: No significant pelvic collection amenable to aspiration. US ENDOSCOPIC Routine 04/01/2023 4:27 PM EST FLUORO MISCELLANEOUS GASTRO Routine 04/01/2023 2:48 PM EST LOWER ENDOSCOPIC U/S 04/01/2023 1:12 PM EST BASIC METABOLIC PANEL Routine 04/01/2023 7:14 AM EST PT INR Routine 04/01/2023 7:14 AM EST CBC Routine 04/01/2023 7:14 AM EST BASIC METABOLIC PANEL Routine 03/31/2023 9:03 AM EST CBC Routine 03/31/2023 9:03 AM EST BASIC METABOLIC PANEL Routine 03/30/2023 6:38 AM EST PT INR Routine 03/30/2023 6:38 AM EST PHOSPHORUS Routine 03/30/2023 6:38 AM EST CBC Routine 03/30/2023 6:38 AM EST MAGNESIUM Routine 03/30/2023 6:38 AM EST HC ECG TRACING ONLY Routine 03/29/2023 8:08 PM EST QT prolongation HEPATIC FUNCTION PANEL Routine 03/29/2023 7:58 PM EST BASIC METABOLIC PANEL Routine 03/29/2023 7:58 PM EST PHOSPHORUS Add-on 03/29/2023 7:58 PM EST LACTATE Routine 03/29/2023 7:58 PM EST CBC Routine 03/29/2023 7:58 PM EST MAGNESIUM Add-on 03/29/2023 7:58 PM EST documented in this encounter Results * (ABNORMAL) CBC (04/03/2023 8:44 AM EST) WBC 5.32 4.00 - 10.80 K/uL 04/03/2023 9:31 AM EST LABORATORY [facility] RBC 3.62 3.85 - 5.15 M/uL 04/03/2023 9:31 AM EST [facility] HGB 10.3(L) 12.0 - 15.3 g/dL 04/03/2023 9:31 AM EST [facility] HCT 33.7(L) 36.0 - 45.2 % 04/03/2023 9:31 AM EST [facility] MCV 93.1 81.5 - 97.5 fL 04/03/2023 9:31 AM EST [facility] MCH 28.5 27.0 - 34.0 pg 04/03/2023 9:31 AM EST [facility] MCHC 30.6 32.0 - 36.0 g/dL 04/03/2023 9:31 AM EST [facility] RDW 14.3 11.5 - 15.5 % 04/03/2023 9:31 AM EST [facility] PLT 303 140 - 400 K/uL 04/03/2023 9:31 AM EST [facility] MPV 10.1 6.6 - 11.1 fL 04/03/2023 9:31 AM EST [facility] nRBCs 0 <=0 /100 WBCs 04/03/2023 9:31 AM EST [facility] Blood Venous blood specimen / Unknown Venipuncture / Unknown 04/03/2023 8:44 AM EST 04/03/2023 9:23 AM EST Beverly Osorio DO LAB BLOOD ORDER [facility] [address] [place] [address] * (ABNORMAL) BASIC METABOLIC PANEL (04/03/2023 8:44 AM EST) BUN 5(L) 6 - 20 mg/dL 04/03/2023 9:50 AM EST [facility] Creatinine 0.5 0.5 - 1.0 mg/dL 04/03/2023 9:50 AM EST [facility] Estimated Glomerular Filtration Rate >90 >=60 mL/min 04/03/2023 9:50 AM EST [facility] Comment:eGFR is calculated b ased on the CKD-EPI 2020 equation Sodium 139 135 - 146 mmol/L 04/03/2023 9:50 AM EST [facility] Potassium 3.4(L) 3.5 - 5.1 mmol/L 04/03/2023 9:50 AM EST [facility] Chloride 103 98 - 107 mmol/L 04/03/2023 9:50 AM EST [facility] CO2 26 22 - 32 mmol/L 04/03/2023 9:50 AM EST [facility] Anion Gap 10 7 - 15 mmol/L 04/03/2023 9:50 AM EST [facility] Glucose 91 70 - 120 mg/dL 04/03/2023 9:50 AM EST [facility] Calcium 7.7(L) 8.4 - 10.2 mg/dL 04/03/2023 9:50 AM EST [facility] Blood Venous blood specimen / Unknown Venipuncture / Unknown 04/03/2023 8:44 AM EST 04/03/2023 9:23 AM EST Vyshnavi Madelin Devon DO LAB BLOOD ORDER [facility] [address] [place] [address] * (ABNORMAL) BASIC METABOLIC PANEL (04/02/2023 7:55 AM EST) BUN 5(L) 6 - 20 mg/dL 04/02/2023 9:24 AM EST [facility] Creatinine 0.6 0.5 - 1.0 mg/dL 04/02/2023 9:24 AM EST [facility] Estimated Glomerular Filtration Rate >90 >=60 mL/min 04/02/2023 9:24 AM EST [facility] Comment:eGFR is calculated b ased on the CKD-EPI 2020 equation Sodium 140 135 - 146 mmol/L 04/02/2023 9:24 AM EST [facility] Potassium 3.0(L) 3.5 - 5.1 mmol/L 04/02/2023 9:24 AM EST [facility] Chloride 101 98 - 107 mmol/L 04/02/2023 9:24 AM EST [facility] CO2 27 22 - 32 mmol/L 04/02/2023 9:24 AM EST [facility] Anion Gap 12 7 - 15 mmol/L 04/02/2023 9:24 AM EST [facility] Glucose 82 70 - 120 mg/dL 04/02/2023 9:24 AM EST [facility] Calcium 7.2(L) 8.4 - 10.2 mg/dL 04/02/2023 9:24 AM EST [facility] Blood Venous blood specimen / Unknown Venipuncture / Unknown 04/02/2023 7:55 AM EST 04/02/2023 8:57 AM EST Beverly Osorio DO LAB BLOOD ORDER [facility] Performing Organization Address City/State/[facility] Co de Phone Number LABORATORY [facility] [address] [place] [address] * (ABNORMAL) CBC (04/02/2023 7:55 AM EST) WBC 4.90 4.00 - 10.80 K/uL 04/02/2023 9:15 AM EST [facility] RBC 3.58 3.85 - 5.15 M/uL 04/02/2023 9:15 AM EST [facility] HGB 10.0(L) 12.0 - 15.3 g/dL 04/02/2023 9:15 AM EST [facility] HCT 32.3(L) 36.0 - 45.2 % 04/02/2023 9:15 AM EST [facility] MCV 90.2 81.5 - 97.5 fL 04/02/2023 9:15 AM EST [facility] MCH 27.9 27.0 - 34.0 pg 04/02/2023 9:15 AM EST [facility] MCHC 31.0 32.0 - 36.0 g/dL 04/02/2023 9:15 AM EST [facility] RDW 14.2 11.5 - 15.5 % 04/02/2023 9:15 AM EST [facility] PLT 281 140 - 400 K/uL 04/02/2023 9:15 AM EST LABORATORY [facility] MPV 10.2 6.6 - 11.1 fL 04/02/2023 9:15 AM EST [facility] nRBCs 0 <=0 /100 WBCs 04/02/2023 9:15 AM EST [facility] Blood Venous blood specimen / Unknown Venipuncture / Unknown 04/02/2023 7:55 AM EST 04/02/2023 8:57 AM EST Beverly Osorio DO LAB BLOOD ORDER [facility] [address] [place] [address] * US ENDOSCOPIC (04/01/2023 4:27 PM EST) Narrative Scheduling, Silent - 04/01/2023 4:27 PM EST This is an imaging study not interpreted or resulted by a [facility] or [facility] contracted radiologist. Jaron Rodriguez MD RAD ULTRASOUND * FLUORO MISCELLANEOUS GASTRO (04/01/2023 2:48 PM EST) Narrative Scheduling, Silent - 04/01/2023 2:48 PM EST This procedure will not be read by a Radiologist. Please see operative note. Jaron Rodriguez MD RAD FLUOROSCOPY * LOWER ENDOSCOPIC U/S (04/01/2023 1:12 PM EST) 04/01/2023 1:12 PM EST Narrative Procedure Note Galileo Babcock MD - 04/01/2023 1:12 PM EST [facility] Patient Name: Ro Serrano Procedure Date: 04/01/2023 1:12 PM Date of : 1945 Admit Type: Inpatient Note Status:Finalized Date of : 1945 Admit Type: Inpatient Age: 77 Room: Endo - Room 8 Gender: Female Note Status: Finalized Procedure: Lower EUS Indications: Suspected fluid collection seen on abdominal/pelvicCT scan, EUS- guided abscess drainage Providers: Jaron Rodriguez MD (Doctor), Renee Perkins(Fellow), Sonia Evans RN, Gaby Bridges LPN Patient Profile: This is a 77 year old female. Refer to note inpatient chart for documentation of history and physical. Referring MD: Manoj Calderon DO, Alee Ponce DO Medicines: Monitored Anesthesia Care Complications: No immediate complications. Procedure: Pre-Anesthesia Assessment: - The supervising physician was present for theentire procedure from scope insertion until scope withdrawal. - Pre-Anesthesia Assessment: - Prior to the procedure, a History and Physicalwas performed, and patient medications, allergies and sensitivities werereviewed. The patient's tolerance of previous anesthesia was reviewed. - The risks and benefits of the procedure and thesedation options and risks were discussed with the patient. All questions wereanswered and informed consent was obtained. - Patient identification and proposed procedurewere verified prior to the procedure by the physician, the nurse, the expense clerk andthe instrumentation engineering technician. The procedure was verified in the endoscopy suite. - See pre-anesthesia H&P in [facility]. - The medication list for this patient has beenreviewed prior to the procedure and has been determined that the patient may proceedwith the planned study. Any medication changes made as a result of the findingsof this procedure have been discussed with the patient and/or passenger service representative atthe time of discharge from the department. - Immediately prior to administration ofmedications, the patient was re-assessed for adequacy to receive sedatives. - After obtaining informed consent, the endoscopewas passed under direct vision. All instruments were visually inspected immediatelybefore and after removal from the patient to ensure they are fully intact. - Throughout the procedure, the patient's bloodpressure, pulse, and oxygen saturations were monitored continuously. - The supervising physician was present for theentire procedure from scope insertion until scope withdrawal. After obtaining informed consent, the endoscope waspassed under direct vision. All instruments were visually inspected immediatelybefore and after removal from the patient to ensure they are fully intact. Throughout the procedure, the patient's bloodpressure, pulse, and oxygen saturations were monitored continuously. The [id number] ([id number] was introduced through the anus and advanced to the sigmoid colonfor ultrasound. The lower EUS was technically difficult and complex due to multiplediverticula in the colon, poor bowel prep and poor endoscopic visualization. TheGIF [id number] Endoscope([id number]) was introduced through the anus and advanced to thesigmoid colon. Findings & Specimens: ENDOSCOPIC FINDING: : Multiple small-mouthed diverticula were found in the sigmoid colon.There was narrowing of the colon in association with the diverticular opening. There was evidence ofdiverticular spasm. Erythema was seen in association with the diverticular opening. Vickie-diverticularerythema was seen. Petechia were visualized in association with the diverticular opening. There was noevidence of diverticular bleeding. ENDOSONOGRAPHIC FINDING: : The perirectal space was normal. Impression: 77 yrs old female with diverticulitis andperi-diverticular abscess on medical management, now with enlarging abscess, presentsfor EUS-guided transrectal abscess drainage: - Severe diverticulosis in the sigmoid colon withnarrowing of the colon in association with the diverticular opening,diverticular spasm, vickie-diverticular erythema, and petechia, consistent with knownongoing diverticulitis. COMMENT: Unable to pass echoendoscope to the areaof the colon to find the pericolonic abscess due to severe diverticularnarrowing from active diverticulitis, thus EUS-guided transrectal abscess drainage wasnot technically feasible. Recommendation: - [facility] - Further recommendations per the inpatientGI/Hepatology consult team. - Consider IR consult for percutaneous drainage. Jaron Rodriguez MD 04/01/2023 2:57:10 PM This report has been signed electronically. Renee Perkins, Estimated Blood Loss: Estimated blood loss: none. Galileo Babcock MD GASTRO LOWER * (ABNORMAL) BASIC METABOLIC PANEL (04/01/2023 7:14 AM EST) BUN 5(L) 6 - 20 mg/dL 04/01/2023 8:30 AM EST [facility] Creatinine 0.7 0.5 - 1.0 mg/dL 04/01/2023 8:30 AM EST [facility] Estimated Glomerular Filtration Rate >90 >=60 mL/min 04/01/2023 8:30 AM EST [facility] Comment:eGFR is calculated b ased on the CKD-EPI 2020 equation Sodium 142 135 - 146 mmol/L 04/01/2023 8:30 AM EST [facility] Potassium 3.5 3.5 - 5.1 mmol/L 04/01/2023 8:30 AM EST [facility] Chloride 103 98 - 107 mmol/L 04/01/2023 8:30 AM EST [facility] CO2 26 22 - 32 mmol/L 04/01/2023 8:30 AM EST [facility] Anion Gap 13 7 - 15 mmol/L 04/01/2023 8:30 AM EST [facility] Glucose 77 70 - 120 mg/dL 04/01/2023 8:30 AM EST [facility] Calcium 7.6(L) 8.4 - 10.2 mg/dL 04/01/2023 8:30 AM EST [facility] Blood Venous blood specimen / Unknown Venipuncture / Unknown 04/01/2023 7:14 AM EST 04/01/2023 8:02 AM EST Beverly Osorio DO LAB BLOOD ORDER KAROLYN [facility] [address] [place] [address] * (ABNORMAL) CBC (04/01/2023 7:14 AM EST) WBC 4.41 4.00 - 10.80 K/uL 04/01/2023 8:10 AM EST [facility] RBC 3.36 3.85 - 5.15 M/uL 04/01/2023 8:10 AM EST [facility] HGB 9.6(L) 12.0 - 15.3 g/dL 04/01/2023 8:10 AM EST [facility] HCT 30.5(L) 36.0 - 45.2 % 04/01/2023 8:10 AM EST [facility] MCV 90.8 81.5 - 97.5 fL 04/01/2023 8:10 AM EST LABORATORY [facility] MCH 28.6 27.0 - 34.0 pg 04/01/2023 8:10 AM EST [facility] MCHC 31.5 32.0 - 36.0 g/dL 04/01/2023 8:10 AM EST [facility] RDW 14.2 11.5 - 15.5 % 04/01/2023 8:10 AM EST [facility] PLT 256 140 - 400 K/uL 04/01/2023 8:10 AM EST [facility] MPV 9.9 6.6 - 11.1 fL 04/01/2023 8:10 AM EST [facility] nRBCs 0 <=0 /100 WBCs 04/01/2023 8:10 AM EST [facility] Blood Venous blood specimen / Unknown Venipuncture / Unknown 04/01/2023 7:14 AM EST 04/01/2023 8:02 AM EST Beverly Osorio DO LAB BLOOD ORDER KAROLYN Performing Organization Address City/[facility]/ZIP Co de Phone Number [facility]AT[facility] [address] [place] [address] * PT INR (04/01/2023 7:14 AM EST) [facility] Prothrombin Time 15.0 11.6 - 15.2 seconds 04/01/2023 8:23 AM EST LABORAT[facility] INR 1.2 0.8 - 1.2 04/01/2023 8:23 AM EST [facility] Blood Venous blood specimen / Unknown Venipuncture / Unknown 04/01/2023 7:14 AM EST 04/01/2023 8:02 AM EST Narrative [facility] - 04/01/2023 8:23 AM EST Warfarin Therapy INR: 2.0-3.0 conventional anticoagulation INR: 2.5-3.5 high intensity anticoagulation Titus Malone DO LAB BLOOD ORDERABLES Performing Organization Address City/[facility]/ZIP Co de Phone Number LAB[facility]ATORY [facility] [address] [place] [address] * (ABNORMAL) BASIC METABOLIC PANEL (03/31/2023 9:03 AM EST) BUN 5(L) 6 - 20 mg/dL 03/31/2023 10:25 AM EST [facility] Creatinine 0.6 0.5 - 1.0 mg/dL 03/31/2023 10:25 AM EST [facility] Estimated Glomerular Filtration Rate >90 >=60 mL/min 03/31/2023 10:25 AM EST [facility] Comment:eGFR is calculated b ased on the CKD-EPI 2020 equation Sodium 139 135 - 146 mmol/L 03/31/2023 10:25 AM EST [facility] Potassium 3.4(L) 3.5 - 5.1 mmol/L 03/31/2023 10:25 AM EST [facility] Chloride 101 98 - 107 mmol/L 03/31/2023 10:25 AM EST [facility] CO2 22 22 - 32 mmol/L 03/31/2023 10:25 AM EST [facility] Anion Gap 16(H) 7 - 15 mmol/L 03/31/2023 10:25 AM EST [facility] Glucose 73 70 - 120 mg/dL 03/31/2023 10:25 AM EST [facility] Calcium 7.8(L) 8.4 - 10.2 mg/dL 03/31/2023 10:25 AM EST [facility] Blood Venous blood specimen / Unknown Venipuncture / Unknown 03/31/2023 9:03 AM EST 03/31/2023 9:20 AM EST Beverly Osorio DO LAB BLOOD ORDER KAROLYN Performing Organization Address City/State/[facility] Co de Phone Number [facility] [address] [place] [address] * (ABNORMAL) CBC (03/31/2023 9:03 AM EST) WBC 5.01 4.00 - 10.80 K/uL 03/31/2023 9:28 AM EST [facility] RBC 3.48 3.85 - 5.15 M/uL 03/31/2023 9:28 AM EST [facility] HGB 9.8(L) 12.0 - 15.3 g/dL 03/31/2023 9:28 AM EST [facility] HCT 31.4(L) 36.0 - 45.2 % 03/31/2023 9:28 AM EST [facility] MCV 90.2 81.5 - 97.5 fL 03/31/2023 9:28 AM EST [facility] MCH 28.2 27.0 - 34.0 pg 03/31/2023 9:28 AM EST [facility] MCHC 31.2 32.0 - 36.0 g/dL 03/31/2023 9:28 AM EST [facility] RDW 14.3 11.5 - 15.5 % 03/31/2023 9:28 AM EST [facility] PLT 253 140 - 400 K/uL 03/31/2023 9:28 AM EST [facility] MPV 9.5 6.6 - 11.1 fL 03/31/2023 9:28 AM EST [facility] nRBCs 0 <=0 /100 WBCs 03/31/2023 9:28 AM EST [facility] Blood Venous blood specimen / Unknown Venipuncture / Unknown 03/31/2023 9:03 AM EST 03/31/2023 9:20 AM EST Beverly Osorio DO LAB BLOOD ORDER KAROLYN [facility] [address] [place] [address] * PHOSPHORUS (03/30/2023 6:38 AM EST) Phosphorus 2.9 2.5 - 4.8 mg/dL 03/30/2023 7:41 AM EST [facility] Blood Venous blood specimen / Unknown Venipuncture / Unknown 03/30/2023 6:38 AM EST 03/30/2023 7:14 AM EST Jessie Robles PA-C LAB BLOOD ORDERABLES Performing Organization Address City/[facility]/ZIP Co de Phone Number LABORATORY [facility] [address] [place] [address] * MAGNESIUM (03/30/2023 6:38 AM EST) Magnesium 1.9 1.5 - 2.6 mg/dL 03/30/2023 7:41 AM EST [facility] Blood Venous blood specimen / Unknown Venipuncture / Unknown 03/30/2023 6:38 AM EST 03/30/2023 7:14 AM EST Jessie GUERRA-C LAB BLOOD ORDERABLES Performing Organization Address [facility] Co de Phone Number LABORATORY [facility] [address] [place] [address] * PT INR (03/30/2023 6:38 AM EST) Prothrombin Time 14.8 11.6 - 15.2 seconds 03/30/2023 7:35 AM EST [facility] INR 1.1 0.8 - 1.2 03/30/2023 7:35 AM EST LABORATORY C Blood Venous blood specimen / Unknown Venipuncture / Unknown 03/30/2023 6:38 AM EST 03/30/2023 7:14 AM EST Narrative [facility] - 03/30/2023 7:35 AM EST Warfarin Therapy INR: 2.0-3.0 conventional anticoagulation INR: 2.5-3.5 high intensity anticoagulation Jessie GUERRA-C LAB BLOOD ORDERABLES Performing Organization Address [facility] Phone Number LABORATORY [place] [address] [place] [address] * (ABNORMAL) CBC (03/30/2023 6:38 AM EST) WBC 6.14 4.00 - 10.80 K/uL 03/30/2023 7:23 AM EST [facility] RBC 3.34 3.85 - 5.15 M/uL 03/30/2023 7:23 AM EST [facility] HGB 9.5(L) 12.0 - 15.3 g/dL 03/30/2023 7:23 AM EST [facility] HCT 31.1(L) 36.0 - 45.2 % 03/30/2023 7:23 AM EST [facility] MCV 93.1 81.5 - 97.5 fL 03/30/2023 7:23 AM EST [facility] MCH 28.4 27.0 - 34.0 pg 03/30/2023 7:23 AM EST [facility] MCHC 30.5 32.0 - 36.0 g/dL 03/30/2023 7:23 AM EST [facility] RDW 14.5 11.5 - 15.5 % 03/30/2023 7:23 AM EST [facility] PLT 248 140 - 400 K/uL 03/30/2023 7:23 AM EST [facility] MPV 9.9 6.6 - 11.1 fL 03/30/2023 7:23 AM EST [facility] nRBCs 0 <=0 /100 WBCs 03/30/2023 7:23 AM EST LABORATORY [facility] Blood Venous blood specimen / Unknown Venipuncture / Unknown 03/30/2023 6:38 AM EST 03/30/2023 7:14 AM EST Jessie Robles PA-C LAB BLOOD ORDERABLES LAB[facility]ATORY [facility] [address] [place] [address] * (ABNORMAL) BASIC METABOLIC PANEL (03/30/2023 6:38 AM EST) BUN 4(L) 6 - 20 mg/dL 03/30/2023 7:41 AM EST [facility] Creatinine 0.7 0.5 - 1.0 mg/dL 03/30/2023 7:41 AM EST [facility] Estimated Glomerular Filtration Rate 90 >=60 mL/min 03/30/2023 7:41 AM EST [facility] Comment:eGFR is calculated b ased on the CKD-EPI 2020 equation Sodium 139 135 - 146 mmol/L 03/30/2023 7:41 AM EST [facility] Potassium 3.6 3.5 - 5.1 mmol/L 03/30/2023 7:41 AM EST [facility] Chloride 104 98 - 107 mmol/L 03/30/2023 7:41 AM EST [facility] CO2 25 22 - 32 mmol/L 03/30/2023 7:41 AM EST [facility] Anion Gap 10 7 - 15 mmol/L 03/30/2023 7:41 AM EST LABORATORY C Glucose 77 70 - 120 mg/dL 03/30/2023 7:41 AM EST [facility] Calcium 8.1(L) 8.4 - 10.2 mg/dL 03/30/2023 7:41 AM EST [facility] Blood Venous blood specimen / Unknown Venipuncture / Unknown 03/30/2023 6:38 AM EST 03/30/2023 7:14 AM EST Jessie Robles PA-C LAB BLOOD ORDERABLES [facility]AT[facility] [address] [place] [address] * EKG (03/29/2023 8:08 PM EST) 03/29/2023 8:08 PM EST Narrative Procedure Note Luis Sarmiento MD - 03/29/2023 8:08 PM EST REASON FOR STUDY: QT prolongation CONCLUSIONS: Normal sinus rhythm ST & T wave abnormality, consider anterior ischemia Prolonged QT interval, consider myocardial disease, electrolytes ordrugs Abnormal ECG When compared with ECG of 17-MAR-2023 08:07, ST/T abnormalities less wideapread Ventricular Rate: 82 Atrial Rate: 82 ME Interval: 130 QRS Duration: 78 QT/QTc: 424/496 ms P-R-T [place]: 47 : -5 : 40 degrees Jessie Robles PA-C EKG [facility] CARDIOLOGY * PHOSPHORUS (03/29/2023 7:58 PM EST) Phosphorus 2.9 2.5 - 4.8 mg/dL 03/29/2023 9:14 PM EST LABORATORY [facility] Blood Venous blood specimen / Unknown Venipuncture / Unknown 03/29/2023 7:58 PM EST 03/29/2023 8:08 PM EST Jessie Filozof PA-C LAB BLOOD ORDERABLES Performing Organization Address City/[facility]/ZIP Co de Phone Number LABORATORY C [address] [place] [address] * MAGNESIUM (03/29/2023 7:58 PM EST) Magnesium 2.0 1.5 - 2.6 mg/dL 03/29/2023 9:14 PM EST [facility] Blood Venous blood specimen / Unknown Venipuncture / Unknown 03/29/2023 7:58 PM EST 03/29/2023 8:08 PM EST Jessie GUERRA-C LAB BLOOD ORDERABLES Performing Organization Address [facility] de Phone Number LABORATORY C [address] [place] [address] * (ABNORMAL) HEPATIC FUNCTION PANEL (03/29/2023 7:58 PM EST) Albumin 2.3(L) 3.8 - 5.0 g/dL 03/29/2023 8:34 PM EST [facility] AST 16 10 - 35 U/L 03/29/2023 8:34 PM EST [facility] Alkaline Phosphatase 70 35 - 130 U/L 03/29/2023 8:34 PM EST [facility] ALT 9(L) 10 - 35 U/L 03/29/2023 8:34 PM EST [facility] Bilirubin, Total 0.5 <=1.2 mg/dL 03/29/2023 8:34 PM EST [facility] Bilirubin, Direct 0.2 0.0 - 0.3 mg/dL 03/29/2023 8:34 PM EST [facility] Protein 5.0(L) 6.0 - 8.3 g/dL 03/29/2023 8:34 PM EST [facility] Blood Venous blood specimen / Unknown Venipuncture / Unknown 03/29/2023 7:58 PM EST 03/29/2023 8:08 PM EST Jessie GUERRA-C LAB BLOOD ORDERABLES Performing Organization Address City/[facility] Co de Phone Number LAB[facility]ORY [facility] [address] [place] [address] * LACTATE (03/29/2023 7:58 PM EST) Lactate 1.1 0.4 - 2.0 mmol/L 03/29/2023 8:35 PM EST [facility] Blood Venous blood specimen / Unknown Venipuncture / Unknown 03/29/2023 7:58 PM EST 03/29/2023 8:07 PM EST Jessie Robles PA-C LAB BLOOD ORDERABLES [facility] [address] [place] [address] * (ABNORMAL) BASIC METABOLIC PANEL (03/29/2023 7:58 PM EST) Pathologist [facility] BUN 3(L) 6 - 20 mg/dL 03/29/2023 8:34 PM EST [facility] Creatinine 0.7 0.5 - 1.0 mg/dL 03/29/2023 8:34 PM EST [facility] Estimated Glomerular Filtration Rate 87 >=60 mL/min 03/29/2023 8:34 PM EST [facility] Comment:eGFR is calculated b ased on the CKD-EPI 2020 equation Sodium 136 135 - 146 mmol/L 03/29/2023 8:34 PM EST [facility] Potassium 3.6 3.5 - 5.1 mmol/L 03/29/2023 8:34 PM EST [facility] Chloride 104 98 - 107 mmol/L 03/29/2023 8:34 PM EST [facility] CO2 26 22 - 32 mmol/L 03/29/2023 8:34 PM EST [facility] Anion Gap 6(L) 7 - 15 mmol/L 03/29/2023 8:34 PM EST [facility] Glucose 96 70 - 120 mg/dL 03/29/2023 8:34 PM EST [facility] Calcium 8.7 8.4 - 10.2 mg/dL 03/29/2023 8:34 PM EST [facility] Blood Venous blood specimen / Unknown Venipuncture / Unknown 03/29/2023 7:58 PM EST 03/29/2023 8:08 PM EST Jessie Robles CHARLIE-C LAB BLOOD ORDERABLES [facility] [address] [place] [address] * (ABNORMAL) CBC (03/29/2023 7:58 PM EST) WBC 5.94 4.00 - 10.80 K/uL 03/29/2023 8:21 PM EST [facility] RBC 3.23 3.85 - 5.15 M/uL 03/29/2023 8:21 PM EST [facility] HGB 9.3(L) 12.0 - 15.3 g/dL 03/29/2023 8:21 PM EST [facility] HCT 29.6(L) 36.0 - 45.2 % 03/29/2023 8:21 PM EST [facility] MCV 91.6 81.5 - 97.5 fL 03/29/2023 8:21 PM EST LAB[facility] MCH 28.8 27.0 - 34.0 pg 03/29/2023 8:21 PM EST LAB[facility] MCHC 31.4 32.0 - 36.0 g/dL 03/29/2023 8:21 PM EST LAB[facility] RDW 14.5 11.5 - 15.5 % 03/29/2023 8:21 PM EST [facility] PLT 236 140 - 400 K/uL 03/29/2023 8:21 PM EST [facility] MPV 9.6 6.6 - 11.1 fL 03/29/2023 8:21 PM EST LAB[facility] nRBCs 0 <=0 /100 WBCs 03/29/2023 8:21 PM EST [facility] Blood Venous blood specimen / Unknown Venipuncture / Unknown 03/29/2023 7:58 PM EST 03/29/2023 8:08 PM EST Jessie GUERRA-C LAB BLOOD ORDERABLES [facility] [address] [place] [address] documented in this encounter Visit Diagnoses Diagnosis Colonic diverticular abscess- Primary Abscess of intestine QT prolongation Nonspecific abnormal electrocardiogram (ECG) (EKG) Colonic diverticular abscess Abscess of intestine Chest pain Chest pain, unspecified Nocturnal hypoxia Hypoxemia Status post cholecystectomy Other acquired absence of organ Diverticulitis of sigmoid colon Diverticulitis of colon (without mention of hemorrhage) Chronic pain of right knee Age-related osteoporosis without current pathological fracture Senile osteoporosis Atrial septal aneurysm Aneurysm of heart (wall) Gastroesophageal reflux disease without esophagitis Esophageal reflux History of nasal polyp Personal history of other specified diseases Dyslipidemia, goal LDL below 70 Other and unspecified hyperlipidemia Atherosclerosis of [place] coronary artery of [place] heart without angina pectoris Patent foramen ovale Ostium secundum type atrial septal defect Age-related osteoporosis without current pathological fracture Senile osteoporosis Asthma, mild persistent Unspecified asthma Atherosclerosis of [place] coronary artery of [place] heart without angina pectoris Gastroesophageal reflux disease without esophagitis Esophageal reflux Status post cholecystectomy Other acquired absence of organ Nocturnal hypoxia Hypoxemia Diverticulitis Diverticulitis of colon (without mention of hemorrhage) Abnormal CT of the abdomen Nonspecific (abnormal) findings on radiological and other examination of abdominal area, including retroperitoneum Family history of colon cancer Family history of malignant neoplasm of gastrointestinal tract documented in this encounter Administered Medications Inactive Administered Medications - up to 3 most recent administrations Medication Order MAR Action Action Date Dose Rate Site Acetaminophen (Tylenol) tab 650 mg 650 mg, Oral, Q6H PRN Pain, Mild, Fever >38C(100.5F), Starting on Tue03/29/23 at 2016, Until Tue04/03/23 at 1822, Maximum of 4 grams (4000 mg) per day. amoxicillin-clavulanate (Augmentin) tab 875 mg 875 mg, Oral, BID (.AM/PM), First dose on Tue04/03/23 at 0915, Last dose on Tue04/12/23 at 2100, For 10 days Given 04/03/2023 9:52 AM EST 875 mg chlorhexidine gluconate cloth 2 % pad External, [id number], First dose on Tue03/30/23 at 1000, Until Discontinued, Applied to appropriate patients per clinical application manager's recommendations FOLLOWING daily care. Given 04/03/2023 10:00 AM EST Given 04/02/2023 10:00 AM EST Given 04/01/2023 10:00 AM EST cholecalciferol (VIT D3) (Vitamin D3) tab 1,000 Units 1,000 Units, Oral, Daily(AM), First dose on Tue03/30/23 at 0900, Until Discontinued, NOTE 1000 units = 25 mcg Given 04/03/2023 9:02 AM EST 1, 000 Units Given 04/02/2023 8:20 AM EST 1,000 Units Given 04/01/2023 8:54 AM EST 1,000 Units ciprofloxacin (Cipro) tab 500 mg 500 mg, Oral, Q12H, First dose on Tue04/02/23 at 2100, Last dose on Tue04/12/23 at 0900, For 10 days, Hold antacids and iron for 3-4 hours before and after administration. Given 04/03/2023 9:02 AM EST 5 00 mg Given 04/02/2023 8:56 PM EST 500 mg diphenhydrAMINE (Benadryl) inj 50 mg 50 mg, IV Push, ONCE PRN Other, Allergic Reaction, Starting on Tue03/30/23 at 1537, Until Tue04/03/23 at 1822, For 1 dose EPINEPHrine 1 mg/mL IM inj 0.3 mg 0.3 mg, Intramuscular, ONCE PRN Other, Allergic Reaction, Starting on Tue03/30/23 at 1537, Until Tue04/03/23 at 1822, For 1 dose ertapenem (INVanz) 1 gram in NSS 50 mL ivpb LOCKED DOSE 1,000 mg, IV Piggyback, Q24H, 14 doses, First dose on Tue03/29/23 at 2200, Last dose on Tue04/11/23 at 2200, Administer over 30 Minutes, MIX BEFORE ADMINISTERING! New Bag 03/30/2023 9:28 PM EST 1,000 mg 110 mL/hr New Bag 03/29/2023 11:44 PM EST 1,000 mg 110 mL/hr Llnrndsfajl-Lskkbcujmrsc-Zenoyyblrk (Trelegy Ellipta) 200-62.5-25 MCG/ACT inhaler 1 Puff 1 Puff, Inhalation, DAILY(1900), First dose on Tue03/30/23 at 1900, Until Discontinued, The proper method of use, as well as anticipated side effects, of this inhaler are discussed and demonstrated to the patient. Patient demonstrates adequate delivery. NURSING TO FOLLOW PATIENT WITH MDI/DPI ADMINISTRATION Given 04/03/2023 9:04 AM EST 1 Puff Given 04/02/2023 8:21 AM EST 1 Puff Given 04/01/2023 8:55 AM EST 1 Puff hEParin inj 5,000 Units 5,000 Units, Subcutaneous, Q12H, First dose on Tue03/30/23 at 0900, Until Discontinued Given 04/03/2023 9:02 AM EST 5,000 Units Abdomen Right Lower Given 04/02/2023 8:56 PM EST 5,000 Units A bdomen Left Lower Given 04/02/2023 8:20 AM EST 5,000 Units A bdomen Left Lower Hydrocortisone Sod Succ (Solu-Cortef) (50 mg/mL) inj dilution 100 mg 100 mg, IV Push, ONCE PRN Other, Allergic Reaction, Starting on Tue03/30/23 at 1538, Until Tue04/03/23 at 1822, For 1 dose isolyte-S pH 7.4 infusion Intravenous, at 75 mL/hr, Plasma-LYTE 148, isolyte-S, and isolyte-S pH 7.4 are considered equivalent - including for MAR barcode scanning., CONTINUOUS, Starting on Tue03/29/23 at 2130, Until Tue03/30/23 at 0859 New Bag 03/29/2023 9:20 PM EST 75 m L/hr Lactobacillus (Culturelle) cap 1 Capsule 1 Capsule, Oral, BID (.AM/PM), First dose on Tue04/03/23 at 1030, Until Discontinued Given 04/03/2023 10:18 AM EST 1 Capsule loperamide (Imodium) cap 2 mg 2 mg, Oral, ONCE, On Tue04/03/23 at 1030, For 1 dose, Maximum of 16 mg per day recommended Given 04/03/2023 10:18 AM EST 2 mg metoprolol succinate XL (toPROL XL) tab 25 mg 25 mg, Oral, Daily(AM), First dose on Tue03/30/23 at 0900, Until Discontinued, Hold for HR less than 60 or SBP below 100 and notify service if dose is held This med should NOT be Crushed or Chewed. Given 04/03/2023 9:02 AM EST 25 mg Given 04/02/2023 8:20 AM EST 25 mg Given 04/01/2023 8:54 AM EST 25 mg metroNIDAZOLE (Flagyl) tab 500 mg 500 mg, Oral, Q8H, First dose on Tue04/02/23 at 2200, Last dose on Tue04/12/23 at 1400, For 10 days Given 04/02/2023 8:56 PM EST 500 mg montelukast (Singulair) tab 10 mg 10 mg, Oral, QHS, First dose on Tue03/29/23 at 2200, Until Discontinued Given 04/02/2023 8:56 PM EST 10 mg Given 04/01/2023 8:56 PM EST 10 mg Given 03/31/2023 8:15 PM EST 10 mg omeprazole (PriLOSEC) cap 20 mg 20 mg, Oral, Daily(AM), First dose on Tue03/30/23 at 0900, Until Discontinued, This med should NOT be Crushed or Chewed Given 04/03/2023 9:02 AM EST 20 mg Given 04/02/2023 8:20 AM EST 20 mg Given 04/01/2023 8:54 AM EST 20 mg Oral Hygiene: Mouth Swab with dentifrice Oral, PCHS, First dose on Tue03/29/23 at 2200, Until Discontinued, To be used with 1.5% hydrogen peroxide solution or 0.05% cetylpyridium chloride oral rinse Given 04/03/2023 9:04 AM EST 1 Kit Given 04/02/2023 6:00 PM EST Given 04/02/2023 1:00 PM EST piperacillin -tazobactam (Zosyn) 450 mg Test Dose IV Piggyback, ONCE, 1 dose, On Tue03/30/23 at 1615, Infuse at 30ml/hr x 15mins Infuse at 60ml/hr x 15min Infuse at 120ml/hr x 15mins Infuse at 240ml/hr x 15mins Rate Change 03/30/2023 6:04 PM EST 240 mL/hr Rate Change 03/30/2023 5:49 PM EST 120 mL/hr Rate Change 03/30/2023 5:31 PM EST 60 mL/hr Piperacillin-Tazobactam (Zosyn) 4.5 g in 100 mL NSS ivpb (FOUR hour infusion) IV Piggyback, 4.5 g, Q8HNOW, 15 doses, First dose on Tue03/31/23 at 1945, Last dose on Tue04/05/23 at 1145, Administer over 4 Hours, at 25 mL/hr Start Infusion 04/02/2023 11:32 AM EST 4.5 g 25 mL/hr New Bag 04/02/2023 3:45 AM EST 4.5 g 25 mL/hr New Bag 04/01/2023 7:36 PM EST 4.5 g 25 mL/hr Piperacillin-Tazobactam (Zosyn) 4.5 g in 100 mL NSS ivpb (HALF hour infusion) IV Piggyback, 4.5 g, ONCE, 1 dose, On Tue03/31/23 at 1145, Administer over 30 Minutes New Bag 03/31/2023 11:30 AM EST 4.5 g 200 mL/hr potassium chloride ER tab 40 mEq 40 mEq, Oral, ONCE, On Tue03/31/23 at 1145, For 1 dose, This med should NOT be Crushed or Chewed Given 03/31/2023 11:30 AM EST 40 mEq potassium chloride ER tab 40 mEq 40 mEq, Oral, Q2H, First dose on Tue04/02/23 at 1200, Last dose on Tue04/02/23 at 1400, For 2 doses, This med should NOT be Crushed or Chewed Given 04/02/2023 1:52 PM EST 40 mEq Given 04/02/2023 11:32 AM EST 40 mEq potassium chloride ER tab 40 mEq 40 mEq, Oral, Q2H, First dose (after last reorder) on Tue04/03/23 at 1045, Last dose on Tue04/03/23 at 1200, For 2 doses, This med should NOT be Crushed or Chewed Given 04/03/2023 10:18 AM EST 40 mEq prochlorperazine (Compazine) inj 10 mg 10 mg, IV Push, Q6H PRN Nausea, Starting on Tue03/30/23 at 1804, Until Tue04/03/23 at 1822 Given 04/01/2023 1:25 AM EST 10 mg Given 03/31/2023 5:05 PM EST 10 mg Given 03/30/2023 6:17 PM EST 10 mg rosuvastatin (Crestor) tab 20 mg 20 mg, Oral, Q1700, First dose on Tue03/29/23 at 2045, Until Discontinued Given 04/02/2023 5:47 PM EST 20 mg Given 04/01/2023 4:36 PM EST 20 mg Given 03/31/2023 5:05 PM EST 20 mg sodium chloride 0.9 % flush central line 10 mL 10 mL, IV Push, Q8H, First dose on Tue03/29/23 at 2200, Until Discontinued, TO UNUSED PORTS Do not flush if lock, PICC, or central line not in place; IV infusing or unable to flush. Given 04/03/2023 6:00 AM EST 10 mL Given 04/02/2023 10:00 PM EST 10 mL Given 04/02/2023 2:00 PM EST 10 mL sodium chloride 0.9 % flush/inj 3 mL 3 mL, IV Push, PRN Other, Line Patency, Starting on Tue03/29/23 at 2015, Until Tue04/03/23 at 1822, Do not flush if lock, PICC, or central line not in place, IV infusing or unable to flush tap water enema 1 Enema 1 Enema, Rectal, ONCE, On Tue03/30/23 at 1100, For 1 dose Given 03/30/2023 11:00 AM EST 1 Enema tap water enema 1 Enema 1 Enema, Rectal, ONCE, On Tue03/30/23 at 1200, For 1 dose Given 03/30/2023 12:00 PM EST 1 Enema tap water enema 1 Enema 1 Enema, Rectal, Q5 MINUTES, First dose on Tue04/01/23 at 0800, Last dose on Tue04/01/23 at 0810, For 3 doses, 250 mL tap water enema - Pre Procedure PRN, Pre-Op Given 04/01/2023 8:10 AM EST 1 En oanh Given 04/01/2023 8:05 AM EST 1 Enema Given 04/01/2023 8:00 AM EST 1 Enema tap water enema 1 Enema 1 Enema, Rectal, PRN Other, Prior coming to endoscopy suit for endoscopy, Starting on Tue04/01/23 at 0955, Until 04/03/23 at 1822 documented in this encounter Active and Recently Administered Medications Times are shown in EST. Scheduled Medication Order 04/01/2023 04/02/2023 04/03/2023 amoxicillin-clavulanate (Augmentin) tab 875 mg 875 mg, Oral, BID (.AM/PM), First dose on Tue04/03/23 at 0915, Last dose on Tue04/12/23 at 2100, For 10 days 0952 (Given - Provider: Makenzie Ramsey RN) chlorhexidine gluconate cloth 2 % pad External, [id number], First dose on Tue03/30/23 at 1000, Until Discontinued, Applied to appropriate patients per clinical application manager's recommendations FOLLOWING daily care. 1000 (Given - Provider: Demetrice Ramos RN) 1000 (Given - Provider: Makenzie Ramsey RN) 1000 (Given - Provider: Makenzie Ramsey RN) cholecalciferol (VIT D3) (Vitamin D3) tab 1,000 Units 1,000 Units, Oral, Daily(AM), First dose on Tue03/30/23 at 0900, Until Discontinued, NOTE 1000 units = 25 mcg 0854 (Given - Provider: Demetrice Ramos RN) 0820 (Given - Provider: Makenzie Ramsey RN) 0902 (Given - Provider: Makenzie Ramsey RN) ciprofloxacin (Cipro) tab 500 mg 500 mg, Oral, Q12H, First dose on Tue04/02/23 at 2100, Last dose on Tue04/12/23 at 0900, For 10 days, Hold antacids and iron for 3-4 hours before and after administration. 2055 (Given - Provider: Ade Nettles LPN) 09 (Given - Provider: Makenzie Ramsey RN) Fluticasone-Umeclidinium- Vilanterol (Trelegy Ellipta) 200-62.5-25 MCG/ACT inhaler 1 Puff 1 Puff, Inhalation, DAILY(1900), First dose on Tue03/30/23 at 1900, Until Discontinued, The proper method of use, as well as anticipated side effects, of this inhaler are discussed and demonstrated to the patient. Patient demonstrates adequate delivery. NURSING TO FOLLOW PATIENT WITH MDI/DPI ADMINISTRATION 0855 (Given - Provider: Demetrice Ramos RN) 0821 (Given - Provider: Makenzie Ramsey RN) 0904 (Given - Provider: Makenzie Ramsey RN) hEParin inj 5,000 Units 5,000 Units, Subcutaneous, Q12H, First dose on Tue03/30/23 at 0900, Until Discontinued 0854 (Given - Provider: Demetrice Ramos RN)2055 (Given - Provider: Ade Nettles LPN) 08 (Given - Provider: Makenzie Ramsey RN)2055 (Given - Provider: Ade Nettles LPN) 901 (Given - Provider: Makenzie Ramsey RN) Lactobacillus (Culturelle) cap 1 Capsule 1 Capsule, Oral, BID (.AM/PM), First dose on Tue04/03/23 at 1030, Until Discontinued 1017 (Given - Provider: Makenzie Ramsey RN) loperamide (Imodium) cap 2 mg (COMPLETED) 2 mg, Oral, ONCE, On Tue04/03/23 at 1030, For 1 dose, Maximum of 16 mg per day recommended 1017 (Given - Provider: Makenzie Ramsey RN) metoprolol succinate XL (toPROL XL) tab 25 mg 25 mg, Oral, Daily(AM), First dose on Tue03/30/23 at 0900, Until Discontinued, Hold for HR less than 60 or SBP below 100 and notify service if dose is held This med should NOT be Crushed or Chewed. 08 (Given - Provider: Demetrice Ramos RN) 819 (Given - Provider: Makenzie Ramsey RN) 901 (Given - Provider: Makenzie Ramsey RN) metroNIDAZOLE (Flagyl) tab 500 mg (CANCELED) 500 mg, Oral, Q8H, First dose on Tue04/02/23 at 2200, Last dose on Tue04/12/23 at 1400, For 10 days 2055 (Given - Provider: Ade Nettles LPN) 0600 (Not Given - Provider: Ade Nettles LPN - Reason: Refused-Notify Provider) montelukast (Singulair) tab 10 mg 10 mg, Oral, QHS, First dose on Tue03/29/23 at 2200, Until Discontinued 2055 (Given - Provider: Ade Nettles LPN) 2055 (Given - Provider: Ade Nettles LPN) omeprazole (PriLOSEC) cap 20 mg 20 mg, Oral, Daily(AM), First dose on Tue03/30/23 at 0900, Until Discontinued, This med should NOT be Crushed or Chewed 0854 (Given - Provider: Demetrice Ramos RN) 0820 (Given - Provider: Makenzie Ramsey RN) 0902 (Given - Provider: Makenzie Ramsey RN) Oral Hygiene: Mouth Swab with dentifrice Oral, [facility], First dose on Tue03/29/23 at 2200, Until Discontinued, To be used with 1.5% hydrogen peroxide solution or 0.05% cetylpyridium chloride oral rinse 0900 (Given - Provider: Demetrice Ramos RN)1300 (Given - Provider: Demetrice Ramos RN)1800 (Given - Provider: Demetrice Ramos RN)2200 (Not Given - Provider: Ade Nettles LPN - Reason: Other- Please add reason in Comments - Comment: refused) 0821 (Given - Provider: Makenzie Ramsey RN)1300 (Given - Provider: Makenzie Ramsey RN)1800 (Given - Provider: Makenzie Ramsey RN)2200 (Not Given - Provider: Ade Nettles LPN - Reason: Refused-Notify Provider) 0904 (Given - Provider: Makenzie Ramsey RN)1300 (Due) Piperacillin-Tazobactam (Zosyn) 4.5 g in 100 mL NSS ivpb (FOUR hour infusion) (CANCELED) IV Piggyback, 4.5 g, Q8HNOW, 15 doses, First dose on Tue03/31/23 at 1945, Last dose on Tue04/05/23 at 1145, Administer over 4 Hours, at 25 mL/hr 0421 (New Bag - Provider: Fang Ramsay RN)1044 (New Bag - Provider: Demetrice Ramos RN)1936 (New Bag - Provider: Ade Nettles LPN) 0345 (New Bag - Provider: Ade Nettles LPN)1132 (Start Infusion - Provider: Makenzie Ramsey RN)1532 (Finish Infusion - Provider: Makenzie Ramsey RN) potassium chloride ER tab 40 mEq (COMPLETED) 40 mEq, Oral, Q2H, First dose on Tue04/02/23 at 1200, Last dose on Tue04/02/23 at 1400, For 2 doses, This med should NOT be Crushed or Chewed 1132 (Given - Provider: Makenzie Ramsey, RN)1352 (Given - Provider: Makenzie Ramsey, RN) potassium chloride ER tab 40 mEq 40 mEq, Oral, Q2H, First dose (after last reorder) on Tue04/03/23 at 1045, Last dose on Tue04/03/23 at 1200, For 2 doses, This med should NOT be Crushed or Chewed 1018 (Given - Provider: Makenzie Ramsey, RN)1200 (Not Given - Provider: Makenzie Ramsey, RN - Reason: Refused-Notify Provider - Comment: notified Dr Malone, kareem desai) rosuvastatin (Crestor) tab 20 mg 20 mg, Oral, Q1700, First dose on Tue03/29/23 at 2045, Until Discontinued 1636 (Given - Provider: Demetrice Ramos RN) 1747 (Given - Provider: Makenzie Ramsey, RN) sodium chloride 0.9 % flush central line 10 mL 10 mL, IV Push, Q8H, First dose on Tue03/29/23 at 2200, Until Discontinued, TO UNUSED PORTS Do not flush if lock, PICC, or central line not in place; IV infusing or unable to flush. 0600 (Given - Provider: Fang Ramsay RN)1400 (Given - Provider: Demetrice Ramos RN)2200 (Given - Provider: Ade Nettles LPN) 0600 (Given - Provider: Ade Nettles LPN)1400 (Given - Provider: Makenzie Ramsey RN)2200 (Given - Provider: Ade Nettles LPN) 0600 (Given - Provider: Ade Nettles LPN)1400 (Due) tap water enema 1 Enema (COMPLETED) 1 Enema, Rectal, Q5 MINUTES, First dose on Tue04/01/23 at 0800, Last dose on Tue04/01/23 at 0810, For 3 doses, 250 mL tap water enema - Pre Procedure PRN, Pre-Op 0800 (Given - Provider: Demetrice Ramos RN)0805 (Given - Provider: Demetrice Ramos, DEBI)0810 (Given - Provider: Demetrice Ramos RN) PRN Medication Order 04/01/2023 04/02/2023 04/03/2023 Acetaminophen (Tylenol) tab 650 mg 650 mg, Oral, Q6H PRN Pain, Mild, Fever >38C(100.5F), Starting on Tue03/29/23 at 2016, Until Tue04/03/23 at 1822, Maximum of 4 grams (4000 mg) per day. diphenhydrAMINE (Benadryl) inj 50 mg 50 mg, IV Push, ONCE PRN Other, Allergic Reaction, Starting on Tue03/30/23 at 1537, Until Tue04/03/23 at 1822, For 1 dose EPINEPHrine 1 mg/mL IM inj 0.3 mg 0.3 mg, Intramuscular, ONCE PRN Other, Allergic Reaction, Starting on Tue03/30/23 at 1537, Until Tue04/03/23 at 1822, For 1 dose Hydrocortisone Sod Succ (Solu-Cortef) (50 mg/mL) inj dilution 100 mg 100 mg, IV Push, ONCE PRN Other, Allergic Reaction, Starting on Tue03/30/23 at 1538, Until Tue04/03/23 at 1822, For 1 dose isolyte-S pH 7.4 infusion () Intravenous, at 250 mL/hr, Plasma-LYTE 148, isolyte-S, and isolyte-S pH 7.4 are considered equivalent - including for MAR barcode scanning., PRN, Starting on Tue04/01/23 at 1236, Until Tue04/01/23 at 1535, Pre-Op 1351 (New Bag - Provider: Andrea Kapadia CRNA)1453 (Stopped - Provider: Andrea Kapadia CRNA) prochlorperazine (Compazine) inj 10 mg 10 mg, IV Push, Q6H PRN Nausea, Starting on Tue03/30/23 at 1804, Until Tue04/03/23 at 1822 0125 (Given - Provider: Fang Ramsay RN) sodium chloride 0.9 % flush/inj 3 mL 3 mL, IV Push, PRN Other, Line Patency, Starting on Tue03/29/23 at 2015, Until 04/03/23 at 1822, Do not flush if lock, PICC, or central line not in place, IV infusing or unable to flush tap water enema 1 Enema 1 Enema, Rectal, PRN Other, Prior coming to endoscopy suit for endoscopy, Starting on Tue04/01/23 at 0955, Until 04/03/23 at 1822 documented in this encounter Advance Directives Latest [...] Advance Directives occurred with: Patient Care Teams Power Reactor Supervisor Relationship Specialty Start Date End Date Manoj Weber DO [address] [place] [place] [address] PCP - General 12/23/05 documented as of this encounter
--- OUTSIDE RECORDS SUMMARY | 2023-04-06 01:11 | External Medical Summary | Summary of Care ---
Author Name Unknown Organization [facility] Address [address] [facility] [address] [address] Phone [phone] Care Team Providers Care Dam Tender Assistant Name Role Phone Skylar Weber DO Primary Care Provider [phone] Reason for Visit * Reason Onset Date Comments Hospital Follow-Up 04/03/2023 Encounter Details Date Type Department Care Team (Late st Contact Info) Description 04/03/2023 Telephone Family Practice [address] [facility] [address] [place] [id number] Skylar Weber DO [address] [place] [address] Hospital Follow-Up Allergies Active Allergy Reactions Criticality Noted Date [...] 24 Hour (toPROL XL)Indications:Cheung ry atherosclerosis of algaaciq coronary artery,Patent foramen ovale,HTN, goal below 130/80 [...] 06/10/2011 ASPIRIN, CONTRAINDICATED- WHEEZING 03/10/2011 Atherosclerosis of algaaciq co ronary artery of algaaciq heart without angina pectoris 03/10/2011 Overview: Cardiac [...] program 09/04/2018 12/10/2019 Overview: DO NOT DELETE [facility] DETECT Study: Project # [id number], Auto Service Advisor: Joe Pelletier, PhD. SUMMARY: Goal: Establish test [...] contact study staff at ; after hours Auto Service Advisor via the [facility] tire builder operator . Please contact study team before resolving/deleting from patients problem list. Study phone number: [phone]. Diagnosis changed due to Research Module. Go to Snapshot for study details. Encounter for examination fo r normal comparison and control in clinical research program 09/04/2018 01/07/2022 Overview: [facility] NOT DELETE [facility] Study: Project # [id number], Auto Service Advisor: Kahlil Augustin, MS, MPH. SUMMARY: Goal: Establish [...] contact study staff at ; after hours Auto Service Advisor via the [facility] hospital tire builder operator . - Please contact study team before resolving/deleting from patients problem list. Study phone number: [phone]. Diagnosis changed due to Research Module. Go to Snapshot for study details. 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 11/15/2018 Lung collapse 08/13/2011 08/09/2018 Allergic rhinitis 06/24/2011 08/11/2018 GERD (gastroesophageal reflux disease) 06/24/2011 02/10/2018 HTN, goal below 130/80 03/19/201102/21 TIA (transient ischemic attack) 01/01/2011 02/10/2018 [facility] current use of ant icoagulant therapy 01/01/2011 [...] No 03/29/2023 documented as of this encounter Miscellaneous Notes * Telephone Encounter - Dawna Ramon OSA - 04/04/2023 11:09 AM EST Per patient request wanted to do follow up on Tuesday afternoon * Telephone Encounter - Stefany Patel OSA - 04/03/2023 7:06 PM EST Patient Name: RO SERRANO([id number]) Sex: Female : 1945 PCP: SKYLAR WEBER Center: [address] Types of orders made on 04/03/2023: Communication, IP Discharge, IP Post Discharge , Lab, Medications Order Date:04/03/2023 Ordering User:TITUS BARBOZA [[id number]] Attending Provider:Quang Rao DO [[id number]] Authorizing Provider: Titus Barboza DO [[id number]] Department:[facility]TRANSPL[facility] IP [facility][[id number]] Order Specific Information Order: RETURN APPT [CUSTOM: [id number]] Order #: [id number]: [id number] Priority: Routine Class: Nursing Unit Department (Single Entry) -> Family Practice Released on: 04/03/2023 1:02 PM Priority: Routine Class: Nursing Unit Department (Single Entry) -> Family Practice Released on: 04/03/2023 1:02 PM documented in this encounter Plan of Treatment Upcoming Encounters Date Type Department Care Team (Late st Contact Info) Description 04/07/2023 1:40 PM EST Office Visit Infectious Disease, [place] [address] [place] [address] Baudilio Oates, [address] [place] [address] 04/11/2023 2:20 PM EST Office Visit Family Practice [address] [facility] [address] [place] [address] Skylar Weber, [address] [place] [address] 05/04/2023 11:00 AM EST Imaging Radiology, [facility] [address] [facility] [place] [address] 05/26/2023 3:30 PM EST Office Visit General Surgery, [facility] [address] [place] [address] Gigi Colby, [facility] [address] 06/02/2023 1:00 PM EST Nurse Only Ancillary [address] [address] College, Nurse Annual Wellness Visit [address] [address] 06/09/2023 11:30 AM EST Office Visit All[facility]Immunology [facility] [place] [address] [place] [address] Lydia Zafar PA-C [address] [place] [address] 06/14/2023 2:30 PM EST Hospital Encounter ENDO [facility], Endoscopy Room [facility] [address] [phone] Judd Adams MD [address] [place] [address] 06/14/2023 2:30 PM EST - 06/14/2023 3:00 PM EST Surgery ENDO [facility], Endoscopy Room [facility] [address] [place] [phone] Judd Adams MD [address] [place] [address] COLONOSCOPY FLEXIBLE PROXIMAL DIAGNOSTIC 07/28/2023 10:00 AM EDT Office Visit Rheumatology [facility] [address] [place] [address] Devendra Shepherd CRNP [address] [place] [address] Scheduled Procedures Name Priority Associated Diagnoses Date/Ti [...] D LEVEL ONCE IN A LIFETIME-USE SMARTSET# [id number] Completed 05/13/2021, 09/01/2012, 01/30/2009 Albumin/Creatinine Ratio Discontinued [...] Advance Directives occurred with: Patient Care Teams Dam Tender Assistant Relationship Specialty Start Date End Date Skylar Weber DO [address] [facility] [place] [address] PCP - General 12/23/05 documented as of this encounter
--- OUTSIDE RECORDS SUMMARY | 2023-04-06 01:11 | External Medical Summary ---
Author Name Unknown Address Unknown Organization K01:[facility] [place] [address] [place] [address] Laboratory Report Ordering Provider Test Date Status MARISSA LOPEZ 04/03/2023 08:44:00 Final Observation Date Value Abnormality Reference (Units ) Status WBC, Total 04/03/2023 08:44:00 5.32 4.00-10.80 (K/uL) Final RBC 04/03/2023 08:44:00 3.62 3.85-5.15 (M/uL) Final Hemoglobin 04/03/2023 08:44:00 10.3 Below low normal 12.0-15.3 (g/dL) Final HCT 04/03/2023 08:44:00 33.7 Below low normal 36.0-45.2 (%) Final MCV 04/03/2023 08:44:00 93.1 81.5-97.5 (fL) Final MCH 04/03/2023 08:44:00 28.5 27.0-34.0 (pg) Final MCHC 04/03/2023 08:44:00 30.6 32.0-36.0 (g/dL) Final RDW 04/03/2023 08:44:00 14.3 11.5-15.5 (%) Final Platelets 04/03/2023 08:44:00 303 140-400 (K/uL) Final MPV 04/03/2023 08:44:00 10.1 6.6-11.1 (fL) Final Nucleated erythrocytes/100 leukocytes [Ratio] in Blood by Automated count 04/03/2023 08:44:00 0 <=0 (/100 WBCs) Final Performing Location [facility] [place] [address] [place] [address]
--- OUTSIDE RECORDS SUMMARY | 2023-04-06 01:11 | External Medical Summary ---
Author Name Unknown Address Unknown Organization K01:[facility] [place] - [address] [place] [address] Laboratory Report Ordering Provider Test Date Status MARISSA LOPEZ 04/03/2023 08:44:00 Final Observation Date Value Abnormality Reference (Units ) Status BUN 04/03/2023 08:44:00 5 Below low normal 6-20 (mg/dL) Final Creatinine 04/03/2023 08:44:00 0.5 0.5-1.0 (mg/dL) Final Glomerular filtration rate/1.73 sq M.predicted [Volume Rate/Area] in Serum, Plasma or Blood by Creatinine-based formula (CKD-EPI) 04/03/2023 08:44:00 >90 >=60 (mL/min) Final eGFR is calculated based on the CKD-EPI 2020 equation SODIUM 04/03/2023 08:44:00 139 135-146 (m mol/L) Final Potassium 04/03/2023 08:44:00 3.4 Below low normal 3.5 -5.1 (mmol/L) Final Cl 04/03/2023 08:44:00 103 98-107 (mm ol/L) Final CO2 04/03/2023 08:44:00 26 22-32 (mmo l/L) Final Anion gap 04/03/2023 08:44:00 10 7-15 (mmol /L) Final Glucose 04/03/2023 08:44:00 91 70-120 (mg /dL) Final Calcium 04/03/2023 08:44:00 7.7 Below low normal 8.4 -10.2 (mg/dL) Final Performing Location [facility] [place] - [address] [place] [address]
--- OUTSIDE RECORDS SUMMARY | 2023-04-06 01:12 | External Medical Summary ---
Author Name Unknown Address Unknown Organization K01[place] [place] [facility] [address] [place] [address] Laboratory Report Ordering Provider Test Date Status MARISSA LOPEZ 04/01/2023 07:14:00 Final Observation Date Value Abnormality Reference (Units ) Status WBC, Total 04/01/2023 07:14:00 4.41 4.00-10.80 (K/uL) Final RBC 04/01/2023 07:14:00 3.36 3.85-5.15 (M/uL) Final Hemoglobin 04/01/2023 07:14:00 9.6 Below low normal 12.0-15.3 (g/dL) Final HCT 04/01/2023 07:14:00 30.5 Below low normal 36.0-45.2 (%) Final MCV 04/01/2023 07:14:00 90.8 81.5-97.5 (fL) Final MCH 04/01/2023 07:14:00 28.6 27.0-34.0 (pg) Final MCHC 04/01/2023 07:14:00 31.5 32.0-36.0 (g/dL) Final RDW 04/01/2023 07:14:00 14.2 11.5-15.5 (%) Final Platelets 04/01/2023 07:14:00 256 140-400 (K/uL) Final MPV 04/01/2023 07:14:00 9.9 6.6-11.1 (fL) Final Nucleated erythrocytes/100 leukocytes [Ratio] in Blood by Automated count 04/01/2023 07:14:00 0 <=0 (/100 WBCs) Final Performing Location [facility] [place] [address] [place] [address]
--- OUTSIDE RECORDS SUMMARY | 2023-04-06 01:12 | External Medical Summary | Summary of Care ---
Author Name Unknown Organization [facility] Address [address] [facility] [place] [address] Phone [phone] Care Team Providers Care Flexo Operator Name Role Phone Manoj Weber DO Primary Care Provider [phone] Encounter Details Date Type Department Care Team (Latest Contact Info) Description 03/12/2023 1:50 PM EDT - 03/12/2023 11:59 PM EDT Hospital Encounter Radiology Film File [address] [facility] [place] [address] Discharge Disposition: Home - Self Care Allergies Active Allergy Reactions Criticality Noted Date Comments Amoxicillin Itching 06/25/2022 Amoxicillin-Pot Clavulanate Itching 06/25/19 23 Salicylates 03/03/2001 Asthmatic reaction (aspirin; no food allergies) documented as of this encounter (statuses as of 03/30/2023) Medications Medication Sig Dispensed Refills Start Date End Date Status CALCIUM + D 600-200 MG-UNIT PO TABS Take by mouth at bedtime . 0 6 Suspended MULTIVITAMIN PO TABS daily 0 6 Suspended OSTEO BI-FLEX ADV TRIPLE ST PO TABS Take by mouth at bedtime . 0 7 Suspended NASAL SALINE 0.65 % NA SOLNIndications:Inspector Rag Sorting anita sinusitis 2 squirts each nostril morning and night and every 2-4 hrs as needed for nasal dryness or congestion 1 bottle 0 7 Suspended Additional Information FISH OIL 1000 MG PO CAPS One each day 0 Suspended MUCINEX 600 MG PO [id number]:Inspector Rag Sorting anita sinusitis,Allergic rhinitis 1-2 pills by mouth twice a day for congestion with plenty of water as needed. Do not cut, crush or chew 50 Tab 3 3 Suspended Additional Information Patient taking differently: 600 mgOralDaily(AM), Reported on 05/24/2022 Cholecalciferol (VITAMIN D) 1000 UNIT Capsule Take 2 Capsules by mouth at bedtime. 30 Cap 11 5 Suspended Loratadine 10 MG Oral Capsule Take 1 Capsule by mouth as needed for Allergies. 0 Suspended Fluticasone Furoate (FLONASE SENSIMIST) 27.5 MCG/SPRAY nasal spray Administer 2 Sprays into nostril daily. 10 g 12 9 Suspended Additional Information Peak Flow Meter Device Use daily to track asthma symptoms. 1 Each 2 1 Suspended Additional Information Cranberry 250 MG Oral Tablet Take by mouth 1 Tablet daily . 0 Suspended Collagen Hydrolysate Powder Use as directed . 0 Suspend ed Acetaminophen ER 650 MG Oral Tablet Extended Release Take 2 Tablets by mouth in the morning. 0 Suspended Albuterol Sulfate (2.5 MG/3ML) 0.083% Inhalation Nebulization Solution (Proventil)Indicatio ns:Mild persistent asthma without complication ONE VIA NEBULIZER EVERY 4 HRS NEEDED FOR COUGH, WHEEZE, SHORTNESS OF BREATH 3 mL 1 3 Suspended Additional Information Omeprazole 20 MG Oral Capsule Delayed Release (PriLOSEC)Indication s:GERD (gastroesophageal reflux disease) TAKE ONE CAPSULE BY MOUTH TWICE A DAY THIRTY MINUTES BEFORE BREAKFAST AND EVENING MEAL 200 Capsule 1 3 11/01/19 24 Suspended Additional Information Metoprolol Succinate ER 25 MG Oral Tablet Extended Release 24 Hour (toPROL XL)Indications:Coron amy atherosclerosis of [place] coronary artery,Patent foramen ovale,HTN, goal below 130/80 TAKE ONE TABLET BY MOUTH EVERY MORNING 100 Tablet 3 2 04/24/20 23 Suspended Additional Information Montelukast Sodium 10 MG Oral Tablet (Singulair) Take 1 Tablet by mouth in the morning. 90 Tablet 3 3 Suspended Additional Information Trelegy Ellipta 200-62.5-25 MCG/ACT Aerosol Powder Breath Activated (Fluticasone-Umeclid inium-Vilanterol) Inhale 1 Puff by mouth every evening. 180 Blister Dosing Unit 3 3 Suspended Additional Information Prolia 60 MG/ML Subcutaneous Solution Prefilled Syringe Inject 60 mg under the skin every 6 months. 1 Each 1 3 Suspended Additional Information Acidophilus Lactobacillus Oral Capsule Take 1 Capsule by mouth daily. 0 3 Suspended Ondansetron 4 MG Oral Tablet Disintegrating (Zofran) Place 1 Tablet on tongue as needed. 0 3 Suspended Loperamide HCl 2 MG Oral Tablet (Immodium (A-D))Indications:Di arrhea, unspecified type Take 1 Tablet by mouth 4 times a day as needed for Diarrhea. 30 Tablet 0 3 Suspended Additional Information ertapenem INJ IV (AMBULATORY) Administer 1 g intravenously daily for 21 days. 21 g 0 3 04/07/20 23 Suspended Additional Information documented as of this encounter (statuses as of 03/30/2023) Active Problems Problem Noted Date Diagnosed Date [...] 06/10/2011 ASPIRIN, CONTRAINDICATED- WHEEZING 03/10/2011 Atherosclerosis of [place] co ronary artery of [place] heart without angina pectoris 03/10/2011 Overview: Cardiac catheterization 02/12/11 30-40 % proximal LAD stenosis Diagonal 70 % Obtuse marginal 50% Systolic Fctn is normal Patent foramen ovale 01/01/2011 ADVANCE DIRECTIVE INFORMATION 07/07/2005 Overview: No, Advance Directive brochure given to patient at prior appointment. documented as of this encounter (statuses as of 03/30/2023) Resolved Problems Problem Noted Date Diagnosed Date Resolved Date Encounter for examination fo r normal comparison and control in clinical research program 09/04/2018 12/10/2019 Overview: DO NOT DELETE [facility] DETECT Study: Project # [id number], Bore Miner Operator: Joe Pelletier, PhD. SUMMARY: Goal: Establish [...] contact study staff at ; after hours Bore Miner Operator via the [facility] tamping machine operator . Please contact study team before resolving/deleting from patients problem list. Study phone number: [phone]. Diagnosis changed due to Research Module. Go to Snapshot for study details. Encounter for examination fo r normal comparison and control in clinical research program 09/04/2018 01/07/2022 Overview: DO NOT DELETE - [facility] DETECT Study: Project # [id number], Bore Miner Operator: Kahlil Augustin, MS, MPH. SUMMARY: Goal: [...] contact study staff at ; after hours Bore Miner Operator via the [facility] hospital tamping machine operator . - Please contact study team before resolving/deleting from patients problem list. Study phone number: [phone]. Diagnosis changed due to Research Module. Go to Snapshot for study details. 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 11/15/2018 Lung collapse 08/13/2011 08/09/2018 Allergic rhinitis 06/24/2011 08/11/2018 GERD (gastroesophageal reflux disease) 06/24/2011 02/10/2018 HTN, goal below 130/80 03/19/201102/21 TIA (transient ischemic attack) 01/01/2011 02/10/2018 nursing home current use of ant icoagulant therapy 01/01/2011 [...] as of this encounter (statuses as of 03/30/2023) Immunizations Name Administration Dates Next Due COVID-19 mRNA, LNP-s, No Pre serve, 2-Dose Series ([employer]) 04/16/2021,07/21/2020,06/23/2020 Pneumococcal Conjugate Vacc, 13 Valent (Prevnar) [...] Description 04/04/2023 11:15 AM EST Imaging Radiology [facility] [address] [place] [address] 04/07/2023 1:40 PM EST Office Visit Infectious Disease, [place] [address] [place] [address] Baudilio Oates, [address] [place] [address] 05/04/2023 11:00 AM EST Imaging Radiology, [facility] [address] [facility] [place] [address] 05/26/2023 3:30 PM EST Office Visit General Surgery, [place] [address] [place] [address] Gigi Colby, [address] [place] [address] 06/02/2023 1:00 PM EST Nurse Only Ancillary [address], [place] [address] [place] [address] [place], Nurse Annual Wellness Visit [address] [address] 06/09/2023 11:30 AM EST Office Visit Allergy/Immunology [facility] [address] [place] [address] Lydia Zafar PA-C [address] [place] [address] 06/14/2023 2:30 PM EST Hospital Encounter ENDO [facility], Endoscopy Room [facility] [address] [place] [phone] Judd Adams MD [address] [place] [address] 06/14/2023 2:30 PM EST - 06/14/2023 3:00 PM EST Surgery ENDO [facility], Endoscopy Room [facility] [address] [place] [phone] Judd Adams MD [address] [place] [address] COLONOSCOPY FLEXIBLE PROXIMAL DIAGNOSTIC 07/28/2023 10:00 AM EDT Office Visit Rheumatology [facility] [address] [place] [address] Devendra Shepherd CRNP [address] [place] [address] Scheduled Procedures Name Priority Associated Diagnoses Date/Ti me ESOPHAGOGASTRODUODENOSCOPY ( EGD), FLEXIBLE, TRANSORAL, ENDOSCOPIC ULTRASOUND Diverticular disease 03/30/2023 2:33 PM EST SIGMOIDOSCOPY FLEXIBLE DIAGNOSTIC Diverticular disease 03/30/2023 2:33 PM EST COLONOSCOPY FLEXIBLE PROXIMA L DIAGNOSTIC Diverticulitis Abnormal CT of the abdomen [...] D LEVEL ONCE IN A LIFETIME-USE SMARTSET# [id number] Completed 05/13/2021, 09/01/2012, 01/30/2009 Albumin/Creatinine Ratio Discontinued [...] Procedure Name Priority Date/Time Associated Diagnosis Comments RADIOLOGY EXAM - CT (IMAGES ONLY, NO REPORT) Routine 03/12/2023 1:50 PM EDT documented in this encounter Results * RADIOLOGY EXAM - CT (IMAGES ONLY, NO REPORT) (03/12/2023 1:50 PM EDT) 03/12/2023 1:49 PM EDT Narrative Scheduling, Silent - 03/29/2023 12:07 PM EST This is an imaging study not interpreted or resulted by a [facility] or [facility] contracted radiologist. Manoj Weber DO RAD CT documented in this encounter Advance Directives Latest Code Status on File Code Status Date Activated Date Inactivated Comments Full Code 03/29/2023 8:17 PM This orde r reflects the patients wishes and were consensually agreed upon. Question Answer Comments Discussion of Advance Directives occurred with: Patient Code Status History Code Status Date Activated Date Inactivated Comments Full Code 03/13/2023 2:20 AM 03/17/2023 6:39 PM This order reflects the patients wishes and were consensually agreed upon. Question Answer Comments Discussion of Advance Directives occurred with: Patient Care Teams Flexo Operator Relationship Specialty Start Date End Date Manoj Weber DO [address] [place] [address] PCP - General 12/23/05 documented as of this encounter
--- OUTSIDE RECORDS SUMMARY | 2023-04-06 01:12 | External Medical Summary ---
Author Name Unknown Address Unknown Organization K01:[facility] [address] [facility] [address] [place] [address] Laboratory Report Ordering Provider Test Date Status MARISSA LOPEZ 03/31/2023 09:03:00 Final Observation Date Value Abnormality Reference (Units ) Status WBC, Total 03/31/2023 09:03:00 5.01 4.00-10.80 (K/uL) Final RBC 03/31/2023 09:03:00 3.48 3.85-5.15 (M/uL) Final Hemoglobin 03/31/2023 09:03:00 9.8 Below low normal 12.0-15.3 (g/dL) Final HCT 03/31/2023 09:03:00 31.4 Below low normal 36.0-45.2 (%) Final MCV 03/31/2023 09:03:00 90.2 81.5-97.5 (fL) Final MCH 03/31/2023 09:03:00 28.2 27.0-34.0 (pg) Final MCHC 03/31/2023 09:03:00 31.2 32.0-36.0 (g/dL) Final RDW 03/31/2023 09:03:00 14.3 11.5-15.5 (%) Final Platelets 03/31/2023 09:03:00 253 140-400 (K/uL) Final MPV 03/31/2023 09:03:00 9.5 6.6-11.1 (fL) Final Nucleated erythrocytes/100 leukocytes [Ratio] in Blood by Automated count 03/31/2023 09:03:00 0 <=0 (/100 WBCs) Final Performing Location [facility] [place] [address] [place] [address]
--- OUTSIDE RECORDS SUMMARY | 2023-04-06 01:12 | External Medical Summary ---
Author Name Unknown Address Unknown Organization K01:[facility] [place] [address] [facility] [address] [place] [address] Laboratory Report Ordering Provider Test Date Status MARISSA LOPEZ 04/02/2023 07:55:00 Final Observation Date Value Abnormality Reference (Units ) Status WBC, Total 04/02/2023 07:55:00 4.90 4.00-10.80 (K/uL) Final RBC 04/02/2023 07:55:00 3.58 3.85-5.15 (M/uL) Final Hemoglobin 04/02/2023 07:55:00 10.0 Below low normal 12.0-15.3 (g/dL) Final HCT 04/02/2023 07:55:00 32.3 Below low normal 36.0-45.2 (%) Final MCV 04/02/2023 07:55:00 90.2 81.5-97.5 (fL) Final MCH 04/02/2023 07:55:00 27.9 27.0-34.0 (pg) Final MCHC 04/02/2023 07:55:00 31.0 32.0-36.0 (g/dL) Final RDW 04/02/2023 07:55:00 14.2 11.5-15.5 (%) Final Platelets 04/02/2023 07:55:00 281 140-400 (K/uL) Final MPV 04/02/2023 07:55:00 10.2 6.6-11.1 (fL) Final Nucleated erythrocytes/100 leukocytes [Ratio] in Blood by Automated count 04/02/2023 07:55:00 0 <=0 (/100 WBCs) Final Performing Location [facility] [address] [place] [address]
--- OUTSIDE RECORDS SUMMARY | 2023-04-06 01:12 | External Medical Summary ---
Author Name Unknown Address Unknown Organization K01:[facility] [place] - [address] [facility] [address] [place] [address] Laboratory Report Ordering Provider Test Date Status MARISSA LOPEZ 03/31/2023 09:03:00 Final Observation Date Value Abnormality Reference (Units ) Status BUN 03/31/2023 09:03:00 5 Below low normal 6-20 (mg/dL) Final Creatinine 03/31/2023 09:03:00 0.6 0.5-1.0 (mg/dL) Final Glomerular filtration rate/1.73 sq M.predicted [Volume Rate/Area] in Serum, Plasma or Blood by Creatinine-based formula (CKD-EPI) 03/31/2023 09:03:00 >90 >=60 (mL/min) Final eGFR is calculated based on the CKD-EPI 2020 equation SODIUM 03/31/2023 09:03:00 139 135-146 (m mol/L) Final Potassium 03/31/2023 09:03:00 3.4 Below low normal 3.5 -5.1 (mmol/L) Final Cl 03/31/2023 09:03:00 101 98-107 (mm ol/L) Final CO2 03/31/2023 09:03:00 22 22-32 (mmo l/L) Final Anion gap 03/31/2023 09:03:00 16 Above high normal 7- 15 (mmol/L) Final Glucose 03/31/2023 09:03:00 73 70-120 (mg /dL) Final Calcium 03/31/2023 09:03:00 7.8 Below low normal 8.4 -10.2 (mg/dL) Final Performing Location [facility] - [address] [place] [address]
--- OUTSIDE RECORDS SUMMARY | 2023-04-06 01:12 | External Medical Summary ---
Author Name Unknown Address Unknown Organization K01:[facility]ORY [facility] [place] - [address] [facility] [address] [place] [address] Laboratory Report Ordering Provider Test Date Status MARISSA LOPEZ 04/01/2023 07:14:00 Final Observation Date Value Abnormality Reference (Units ) Status BUN 04/01/2023 07:14:00 5 Below low normal 6-20 (mg/dL) Final Creatinine 04/01/2023 07:14:00 0.7 0.5-1.0 (mg/dL) Final Glomerular filtration rate/1.73 sq M.predicted [Volume Rate/Area] in Serum, Plasma or Blood by Creatinine-based formula (CKD-EPI) 04/01/2023 07:14:00 >90 >=60 (mL/min) Final eGFR is calculated based on the CKD-EPI 2020 equation SODIUM 04/01/2023 07:14:00 142 135-146 (m mol/L) Final Potassium 04/01/2023 07:14:00 3.5 3.5-5.1 (m mol/L) Final Cl 04/01/2023 07:14:00 103 98-107 (mm ol/L) Final CO2 04/01/2023 07:14:00 26 22-32 (mmo l/L) Final Anion gap 04/01/2023 07:14:00 13 7-15 (mmol /L) Final Glucose 04/01/2023 07:14:00 77 70-120 (mg /dL) Final Calcium 04/01/2023 07:14:00 7.6 Below low normal 8.4 -10.2 (mg/dL) Final Performing Location [facility] [place] - [address] [place] [address]
--- OUTSIDE RECORDS SUMMARY | 2023-04-06 01:12 | External Medical Summary ---
Author Name Unknown Address Unknown Organization K01:[facility] [place] [address] [place] [address] Laboratory Report Ordering Provider Test Date Status JABARI ALAS 04/01/2023 07:14:00 Final Warfarin Therapy
INR: 2 .0-3.0 conventional anticoagulation
INR: 2.5- 3.5 high intensity anticoagulation Observation Date Value Abnormality Reference (Units ) Status PT 04/01/2023 07:14:00 15.0 11.6-15.2 (seconds) Final INR 04/01/2023 07:14:00 1.2 0.8-1.2 Final Performing Location [facility] [place] [address] [place] [address]
--- OUTSIDE RECORDS SUMMARY | 2023-04-06 01:12 | External Medical Summary ---
Author Name Unknown Address Unknown Organization K01:[facility] [place] [address] [place] [address] Laboratory Report Ordering Provider Test Date Status MARISSA LOPEZ 04/02/2023 07:55:00 Final Observation Date Value Abnormality Reference (Units ) Status BUN 04/02/2023 07:55:00 5 Below low normal 6-20 (mg/dL) Final Creatinine 04/02/2023 07:55:00 0.6 0.5-1.0 (mg/dL) Final Glomerular filtration rate/1.73 sq M.predicted [Volume Rate/Area] in Serum, Plasma or Blood by Creatinine-based formula (CKD-EPI) 04/02/2023 07:55:00 >90 >=60 (mL/min) Final eGFR is calculated based on the CKD-EPI 2020 equation SODIUM 04/02/2023 07:55:00 140 135-146 (m mol/L) Final Potassium 04/02/2023 07:55:00 3.0 Below low normal 3.5 -5.1 (mmol/L) Final Cl 04/02/2023 07:55:00 101 98-107 (mm ol/L) Final CO2 04/02/2023 07:55:00 27 22-32 (mmo l/L) Final Anion gap 04/02/2023 07:55:00 12 7-15 (mmol /L) Final Glucose 04/02/2023 07:55:00 82 70-120 (mg /dL) Final Calcium 04/02/2023 07:55:00 7.2 Below low normal 8.4 -10.2 (mg/dL) Final Performing Location [facility] [place] [address] [place] [address]
--- OUTSIDE RECORDS SUMMARY | 2023-04-06 01:12 | External Medical Summary | Summary of Care ---
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 2 squirts each nostril morning and night and every 2-4 hrs as needed for nasal dryness or congestion 1 bottle 0 7 Suspended Additional Information FISH OIL 1000 MG PO CAPS One each day 0 Suspended MUCINEX 600 MG PO [id number]: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 SUMMARY: Goal: Establish test [...] contact study staff at ; after hours Clinical Biostatistician via the [facility] stranding machine operator . Please contact study team before resolving/deleting from patients problem list. Study phone number: [phone]. Diagnosis changed due to Research Module. Go to Snapshot for study details. Encounter for examination fo r normal comparison and control in clinical research program 09/04/2018 01/07/2022 Overview: DO NOT DELETE - [facility] DETECT Study: Project # [id number], Clinical Biostatistician: Kahlil Augustin, MS, MPH. SUMMARY: Goal: Establish [...] contact study staff at ; after hours Clinical Biostatistician via the [facility] hospital stranding machine operator . - Please contact study team before resolving/deleting from patients problem list. Study phone number: [phone]. Diagnosis changed due to Research Module. Go [...] mRNA, LNP-s, No Pre serve, 2-Dose Series ([employer]) 04/16/2021,07/21/2020,06/23/2020 Pneumococcal Conjugate Vacc, 13 Valent (Prevnar) [...] Description 04/04/2023 11:15 AM EST Imaging Radiology [address] [place] [address] 04/07/2023 1:40 PM EST Office Visit Infectious Disease, [place] [address] [place] [address] Baudilio Oates, [address] [place] [address] 05/04/2023 11:00 AM EST Imaging Radiology, [address] [address] 05/26/2023 3:30 PM EST Office Visit General Surgery, [place] [address] [place] [address] Gigi Colby, DO [address] [place] [address] 06/02/2023 1:00 PM EST Nurse Only Ancillary [address] [facility] [address] [place] [address] [place], Nurse Annual Wellness Visit [address] [address] 06/09/2023 11:30 AM EST Office Visit Allergy/Immunology [facility] [place] [address] [place], [place] [address] Lydia Zafar PA-C [address] [place] [address] 06/14/2023 2:30 PM EST Hospital Encounter ENDO O[facility], Endoscopy Room [facility] [address] [place] [phone] Judd Adams MD [address] [place] [address] 06/14/2023 2:30 PM EST - 06/14/2023 3:00 PM EST Surgery ENDO [facility], Endoscopy Room [facility] [address] [place] [phone] Judd Adams MD [address] [place] [address] COLONOSCOPY FLEXIBLE PROXIMAL DIAGNOSTIC 07/28/2023 10:00 AM EDT Office Visit Rheumatology [facility] [address] [facility] [place], [place] [address] Devendra Shepherd CRNP [address] [facility] [place], [place] [address] Scheduled Procedures Name Priority Associated Diagnoses Date/Ti [...] D LEVEL ONCE IN A LIFETIME-USE SMARTSET# [id number] Completed 05/13/2021, 09/01/2012, 01/30/2009 Albumin/Creatinine Ratio Discontinued [...] - CT (IMAGES ONLY, NO REPORT) Routine 03/28/2023 9:05 AM EST documented in this encounter Results * RADIOLOGY EXAM - CT (IMAGES ONLY, NO REPORT) (03/28/2023 9:05 AM EST) 03/28/2023 9:05 AM EST Narrative Scheduling, Silent - 03/29/2023 12:04 PM EST This is an imaging study not interpreted or resulted by a [facility] or [employer] contracted radiologist. Manoj Weber DO RAD CT [...] Advance Directives occurred with: Patient Care Teams Bus Boy Relationship Specialty Start Date End Date Manoj Weber DO [address] [place] [address] PCP - General 12/23/05 documented as of this encounter
--- OUTSIDE RECORDS SUMMARY | 2023-04-06 01:13 | External Medical Summary ---
Author Name Unknown Address Unknown Organization K01:LABORATORY [facility] [place] - [address] [place] [address] Laboratory Report Ordering Provider Test Date Status KARRIE MANNING 03/30/2023 06:38:00 Final Warfarin Therapy
INR: 2 .0-3.0 conventional anticoagulation
INR: 2.5- 3.5 high intensity anticoagulation Observation Date Value Abnormality Reference (Units ) Status PT 03/30/2023 06:38:00 14.8 11.6-15.2 (seconds) Final INR 03/30/2023 06:38:00 1.1 0.8-1.2 Final Performing Location LABORATORY [facility] [place] - [address] [place] [address]
--- OUTSIDE RECORDS SUMMARY | 2023-04-06 01:13 | External Medical Summary ---
Author Name Unknown Address Unknown Organization K01:[facility] [place] - [address] [place] [address] Laboratory Report Ordering Provider Test Date Status KARRIE MANNING 03/29/2023 19:58:00 Final Observation Date Value Abnormality Reference (Units ) Status Lactic Acid 03/29/2023 19:58:00 1.1 0.4-2.0 (mmol/L) Final Performing Location LABORATORY [facility] - [address] [place] [address]
--- OUTSIDE RECORDS SUMMARY | 2023-04-06 01:13 | External Medical Summary ---
Author Name Unknown Address Unknown Organization K01:[facility]ATORY [facility] [place] - [address] [facility] [address] [place] [address] Laboratory Report Ordering Provider Test Date Status KARRIE MANNING 03/30/2023 06:38:00 Final Observation Date Value Abnormality Reference (Units ) Status WBC, Total 03/30/2023 06:38:00 6.14 4.00-10.80 (K/uL) Final RBC 03/30/2023 06:38:00 3.34 3.85-5.15 (M/uL) Final Hemoglobin 03/30/2023 06:38:00 9.5 Below low normal 12.0-15.3 (g/dL) Final HCT 03/30/2023 06:38:00 31.1 Below low normal 36.0-45.2 (%) Final MCV 03/30/2023 06:38:00 93.1 81.5-97.5 (fL) Final MCH 03/30/2023 06:38:00 28.4 27.0-34.0 (pg) Final MCHC 03/30/2023 06:38:00 30.5 32.0-36.0 (g/dL) Final RDW 03/30/2023 06:38:00 14.5 11.5-15.5 (%) Final Platelets 03/30/2023 06:38:00 248 140-400 (K/uL) Final MPV 03/30/2023 06:38:00 9.9 6.6-11.1 (fL) Final Nucleated erythrocytes/100 leukocytes [Ratio] in Blood by Automated count 03/30/2023 06:38:00 0 <=0 (/100 WBCs) Final Performing Location LABORATORY [facility] - [address] [place] [address]
--- OUTSIDE RECORDS SUMMARY | 2023-04-06 01:13 | External Medical Summary ---
Author Name Unknown Address Unknown Organization [id number]:[facility] [address] [place] [address] Laboratory Report Ordering Provider Test Date Status KARRIE MANNING 03/30/2023 06:38:00 Final Observation Date Value Abnormality Reference (Units ) Status Magnesium 03/30/2023 06:38:00 1.9 1.5-2.6 (m g/dL) Final Performing Location [facility] - [address] [place] [address]
--- OUTSIDE RECORDS SUMMARY | 2023-04-06 01:13 | External Medical Summary ---
Author Name Unknown Address Unknown Organization K01:[facility] [address] [place] [address] Laboratory Report Ordering Provider Test Date Status KARRIE MANNING 03/30/2023 06:38:00 Final Observation Date Value Abnormality Reference (Units ) Status Phosphate 03/30/2023 06:38:00 2.9 2.5-4.8 (m g/dL) Final Performing Location [facility] - [address] [place] [address]
--- OUTSIDE RECORDS SUMMARY | 2023-04-06 01:13 | External Medical Summary | Summary of Care ---
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 2 squirts each nostril morning and night and every 2-4 hrs as needed for nasal dryness or congestion 1 bottle 0 7 Suspended Additional Information FISH OIL 1000 MG PO CAPS One each day 0 Suspended MUCINEX 600 MG PO [id number]: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 SUMMARY: Goal: Establish test [...] contact study staff at ; after hours Undercar Specialist via the [facility] weigh machine operator . Please contact study team before resolving/deleting from patients problem list. Study phone number: [phone]. Diagnosis changed due to Research Module. Go to Snapshot for study details. Encounter for examination fo r normal comparison and control in clinical research program 09/04/2018 01/07/2022 Overview: DO NOT DELETE - [facility] DETECT Study: Project # [id number], Undercar Specialist: Kahlil Augustin, MS, MPH. SUMMARY: Goal: Establish [...] contact study staff at ; after hours Undercar Specialist via the [facility] weigh machine operator . - Please contact study team before resolving/deleting from patients problem list. Study phone number: [phone]. Diagnosis changed due to Research Module. Go [...] mRNA, LNP-s, No Pre serve, 2-Dose Series ([employer]) 04/16/2021,07/21/2020,06/23/2020 Pneumococcal Conjugate Vacc, 13 Valent (Prevnar) [...] Description 04/04/2023 11:15 AM EST Imaging Radiology [address] [place] [address] 04/07/2023 1:40 PM EST Office Visit Infectious Disease, [place] [address] [place] [address] Baudilio Oates, [address] [place] [address] 05/04/2023 11:00 AM EST Imaging Radiology, [address] [address] 05/26/2023 3:30 PM EST Office Visit General Surgery, [place] [address] [place] [address] Gigi Colby, [address] [place] [address] 06/02/2023 1:00 PM EST Nurse Only Ancillary 65 [facility] 293 [place] [address] College, Nurse Annual Wellness Visit [address] [address] 06/09/2023 11:30 AM EST Office Visit Allergy/Immunology [facility] [place] [address] [place], [place] [address] Lydia Zafar PA-C [address] [place], [place] [address] 06/14/2023 2:30 PM EST Hospital Encounter ENDO [facility], Endoscopy Room [facility] [address] [place] [phone] Judd Adams MD [address] [place] [address] 06/14/2023 2:30 PM EST - 06/14/2023 3:00 PM EST Surgery ENDO [facility], Endoscopy Room [facility] [address] [place] [phone] Judd Adams MD [address] [place] [address] COLONOSCOPY FLEXIBLE PROXIMAL DIAGNOSTIC 07/28/2023 10:00 AM EDT Office Visit Rheumatology [facility] [address] [facility] [place], [place] [address] Devendra Shepherd CRNP [address] [facility] [place], [place] [address] Scheduled Procedures Name Priority Associated Diagnoses Date/Ti [...] D LEVEL ONCE IN A LIFETIME-USE SMARTSET# [id number] Completed 05/13/2021, 09/01/2012, 01/30/2009 Albumin/Creatinine Ratio Discontinued [...] - CT (IMAGES ONLY, NO REPORT) Routine 03/22/2023 4:35 PM EST documented in this encounter Results * RADIOLOGY EXAM - CT (IMAGES ONLY, NO REPORT) (03/22/2023 4:35 PM EST) 03/22/2023 4:31 PM EST Narrative Scheduling, Silent - 03/29/2023 12:07 PM EST This is an imaging study not interpreted or resulted by a [facility] or [facility] contracted radiologist. Manoj Weber DO RAD CT [...] Advance Directives occurred with: Patient Care Teams Plate Molder Relationship Specialty Start Date End Date Manoj Weber DO [address] [place] [address] PCP - General 12/23/05 documented as of this encounter
--- OUTSIDE RECORDS SUMMARY | 2023-04-06 01:13 | External Medical Summary ---
Author Name Unknown Address Unknown Organization K01:[facility] [place] [place] - [address] [place] [address] Laboratory Report Ordering Provider Test Date Status KARRIE MANNING 03/29/2023 19:58:00 Final Observation Date Value Abnormality Reference (Units ) Status WBC, Total 03/29/2023 19:58:00 5.94 4.00-10.80 (K/uL) Final RBC 03/29/2023 19:58:00 3.23 3.85-5.15 (M/uL) Final Hemoglobin 03/29/2023 19:58:00 9.3 Below low normal 12.0-15.3 (g/dL) Final HCT 03/29/2023 19:58:00 29.6 Below low normal 36.0-45.2 (%) Final MCV 03/29/2023 19:58:00 91.6 81.5-97.5 (fL) Final MCH 03/29/2023 19:58:00 28.8 27.0-34.0 (pg) Final MCHC 03/29/2023 19:58:00 31.4 32.0-36.0 (g/dL) Final RDW 03/29/2023 19:58:00 14.5 11.5-15.5 (%) Final Platelets 03/29/2023 19:58:00 236 140-400 (K/uL) Final MPV 03/29/2023 19:58:00 9.6 6.6-11.1 (fL) Final Nucleated erythrocytes/100 leukocytes [Ratio] in Blood by Automated count 03/29/2023 19:58:00 0 <=0 (/100 WBCs) Final Performing Location LABORATORY C - [address] [place] [address]
--- OUTSIDE RECORDS SUMMARY | 2023-04-06 01:13 | External Medical Summary ---
Author Name Unknown Address Unknown Organization K01:[facility] [place] - [address] [place] [address] Laboratory Report Ordering Provider Test Date Status KARRIE MANNING 03/29/2023 19:58:00 Final Observation Date Value Abnormality Reference (Units ) Status Albumin 03/29/2023 19:58:00 2.3 Below low normal 3.8-5.0 (g/dL) Final AST (Aspartate aminotransferase) 03/29/2023 19:58:00 16 10-35 (U/L) Final Alk Phos 03/29/2023 19:58:00 70 35-130 (U/L) Final ALT (Alanine aminotransferase) 03/29/2023 19:58:00 9 Below low normal 10-35 (U/L) Final Bilirubin, Total 03/29/2023 19:58:00 0.5 <=1.2 (mg/dL) Final Bilirubin, Direct 03/29/2023 19:58:00 0.2 0.0-0.3 (mg/dL) Final Protein 03/29/2023 19:58:00 5.0 Below low normal 6.0-8.3 (g/dL) Final Performing Location [facility] [place] - [address] [place] [address]
--- OUTSIDE RECORDS SUMMARY | 2023-04-06 01:13 | External Medical Summary ---
Author Name Unknown Address Unknown Organization K01:[facility]ATORY [facility] [place] - [address] [place] [address] Laboratory Report Ordering Provider Test Date Status KARRIE MANNING 03/30/2023 06:38:00 Final Observation Date Value Abnormality Reference (Units ) Status BUN 03/30/2023 06:38:00 4 Below low normal 6-20 (mg/dL) Final Creatinine 03/30/2023 06:38:00 0.7 0.5-1.0 (mg/dL) Final Glomerular filtration rate/1.73 sq M.predicted [Volume Rate/Area] in Serum, Plasma or Blood by Creatinine-based formula (CKD-EPI) 03/30/2023 06:38:00 90 >=60 (mL/min) Final eGFR is calculated based on the CKD-EPI 2020 equation SODIUM 03/30/2023 06:38:00 139 135-146 (m mol/L) Final Potassium 03/30/2023 06:38:00 3.6 3.5-5.1 (m mol/L) Final Cl 03/30/2023 06:38:00 104 98-107 (mm ol/L) Final CO2 03/30/2023 06:38:00 25 22-32 (mmo l/L) Final Anion gap 03/30/2023 06:38:00 10 7-15 (mmol /L) Final Glucose 03/30/2023 06:38:00 77 70-120 (mg /dL) Final Calcium 03/30/2023 06:38:00 8.1 Below low normal 8.4 -10.2 (mg/dL) Final Performing Location [facility]ATORY [facility] [place] - [address] [place] [address]
--- OUTSIDE RECORDS SUMMARY | 2023-04-06 01:13 | External Medical Summary ---
Author Name Unknown Address Unknown Organization [facility]01[facility] - [address] [place] [address] Laboratory Report Ordering Provider Test Date Status KARRIE MANNING 03/29/2023 19:58:00 Final Observation Date Value Abnormality Reference (Units ) Status Magnesium 03/29/2023 19:58:00 2.0 1.5-2.6 (m g/dL) Final Performing Location [facility] - [address] [place] [address]
--- OUTSIDE RECORDS SUMMARY | 2023-04-06 01:13 | External Medical Summary ---
Author Name Unknown Address Unknown Organization K01:LABORATORY [facility] [place] - [address] [place] [address] Laboratory Report Ordering Provider Test Date Status KARRIE MANNING 03/29/2023 19:58:00 Final Observation Date Value Abnormality Reference (Units ) Status BUN 03/29/2023 19:58:00 3 Below low normal 6-20 (mg/dL) Final Creatinine 03/29/2023 19:58:00 0.7 0.5-1.0 (mg/dL) Final Glomerular filtration rate/1.73 sq M.predicted [Volume Rate/Area] in Serum, Plasma or Blood by Creatinine-based formula (CKD-EPI) 03/29/2023 19:58:00 87 >=60 (mL/min) Final eGFR is calculated based on the CKD-EPI 2020 equation SODIUM 03/29/2023 19:58:00 136 135-146 (m mol/L) Final Potassium 03/29/2023 19:58:00 3.6 3.5-5.1 (m mol/L) Final Cl 03/29/2023 19:58:00 104 98-107 (mm ol/L) Final CO2 03/29/2023 19:58:00 26 22-32 (mmo l/L) Final Anion gap 03/29/2023 19:58:00 6 Below low normal 7-1 5 (mmol/L) Final Glucose 03/29/2023 19:58:00 96 70-120 (mg /dL) Final Calcium 03/29/2023 19:58:00 8.7 8.4-10.2 ( mg/dL) Final Performing Location LABORATORY [facility] [place] - [address] [place] [address]
--- OUTSIDE RECORDS SUMMARY | 2023-04-06 01:13 | External Medical Summary ---
Author Name Unknown Address Unknown Organization K01:[facility] - [address] [place] [address] Laboratory Report Ordering Provider Test Date Status KARRIE MANNING 03/29/2023 19:58:00 Final Observation Date Value Abnormality Reference (Units ) Status Phosphate 03/29/2023 19:58:00 2.9 2.5-4.8 (m g/dL) Final Performing Location [facility] - [address] [place] [address]
--- OUTSIDE RECORDS SUMMARY | 2023-04-06 01:14 | External Medical Summary | Summary of Care ---
Author Name Unknown Organization [facility] Address [address] [place] [address] Phone [phone] Care Team Providers Care Drafting Detailer Name Role Phone AriannauvaldoManoj DO Primary Care Provider [phone] Reason for Visit * Reason Onset Date Comments Appointment 03/21/2023 Encounter Details Date Type Department Care Team (Late st Contact Info) Description 03/21/2023 Bus Transportation Manager Telephone Family Practice 65 [facility] [address] [place] [address] Caitie Rocha, RN [address] [place] [address] Appointment Allergies Active Allergy Reactions Criticality Noted Date Comments Amoxicillin Itching 06/25/2022 Amoxicillin-Pot Clavulanate Itching 06/25/19 23 Salicylates 03/03/2001 Asthmatic reaction (aspirin; no food allergies) documented as of this encounter (statuses as of 03/24/2023) Medications Medication Sig Dispensed Refills Start Date End Date Status CALCIUM + D 600-200 MG-UNIT PO TABS Take by mouth at bedtime . 0 07/07/2005 Active MULTIVITAMIN PO TABS daily 0 07/07/2005 Acti ve OSTEO BI-FLEX ADV TRIPLE ST PO TABS Take by mouth at bedtime . 0 02/02/2007 Active NASAL SALINE 0.65 % NA SOLNIndications:Beam Saw Operator anita sinusitis 2 squirts each nostril morning and night and every 2-4 hrs as needed for nasal dryness or congestion 1 bottle 0 02/02/2007 Active FISH OIL 1000 MG PO CAPS One each day 0 Active MUCINEX 600 MG PO [id number]:Beam Saw Operator anita sinusitis,Allergic rhinitis 1-2 pills by [...] 24 Hour (toPROL XL)Indications:Coron amy atherosclerosis of [place] coronary artery,Patent foramen ovale,HTN, goal below 130/80 [...] as of this encounter (statuses as of 03/24/2023) Active Problems Problem Noted Date Diagnosed Date [...] 06/10/2011 ASPIRIN, CONTRAINDICATED- WHEEZING 03/10/2011 Atherosclerosis of [place] co ronary artery of [place] heart without angina pectoris 03/10/2011 Overview: Cardiac catheterization 02/12/11 30-40 % proximal LAD stenosis Diagonal 70 % Obtuse marginal 50% Systolic Fctn is normal Patent foramen ovale 01/01/2011 ADVANCE DIRECTIVE INFORMATION 07/07/2005 Overview: No, Advance Directive brochure given to patient at prior appointment. documented as of this encounter (statuses as of 03/24/2023) Resolved Problems Problem Noted Date Diagnosed Date Resolved Date Encounter for examination fo r normal comparison and control in clinical research program 09/04/2018 12/10/2019 Overview: DO NOT DELETE [employer] Study: Project # [id number], Craps Manager: Joe Pelletier, PhD. SUMMARY: Goal: Establish test [...] contact study staff at ; after hours Craps Manager via the [facility] hospital owner/operator . Please contact study team before resolving/deleting from patients problem list. Study phone number: [phone]. Diagnosis changed due to Research Module. Go to Snapshot for study details. Encounter for examination fo r normal comparison and control in clinical research program 09/04/2018 01/07/2022 Overview: DO NOT DELETE - [employer] DAY Study: Project # [id number], Craps Manager: Kahlil Augustin, MS, MPH. SUMMARY: Goal: Establish [...] contact study staff at ; after hours Craps Manager via the [facility] hospital owner/operator . - Please contact study team before resolving/deleting from patients problem list. Study phone number: [phone]. Diagnosis changed due to Research Module. Go to Snapshot for study details. 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 11/15/2018 Lung collapse 08/13/2011 08/09/2018 Allergic rhinitis 06/24/2011 08/11/2018 GERD (gastroesophageal reflux disease) 06/24/2011 02/10/2018 HTN, goal below 130/80 03/19/201102/21 TIA (transient ischemic attack) 01/01/2011 02/10/2018 intermediate card tender current use of ant icoagulant therapy 01/01/2011 [...] as of this encounter (statuses as of 03/24/2023) Immunizations Name Administration Dates Next Due COVID-19 mRNA, LNP-s, No Pre serve, 2-Dose Series ([employer]) 04/16/2021,07/21/2020,06/23/2020 Pneumococcal Conjugate Vacc, 13 Valent (Prevnar) 12/01/2015 Pneumococcal Polysaccharide PPV23 (Pneumovax) 08/09/2017,07/29/2008 SEASONAL INFLUENZA, PF, 6 M & Above, IM , (FLULAVAL or FLUZONE) 01/03/2020,02/10/2018,02/02/2017 Seasonal Influenza, Quadriva lent Hd (Fluzone Hd) 03/05/2022,04/27/2021 Seasonal Influenza, Quadriva lent, No Preserve, IM 01/26/2016 Seasonal Influenza, Split, I IV3, With Preserve, Inj 01/29/2015,03/15/2013,05/03/2012,1106/2010,03/10/2010,02/15/2008,02/03/20 07,03/24/2005,04/03/2002 01/30/2016 Seasonal Influenza, Trivalen t, Adjuvanted, [...] No 03/13/2023 documented as of this encounter Miscellaneous Notes * Telephone Encounter - Dawna Greenberg OSA - 03/24/2023 11:29 AM EST Pt is currently admitted. They will call when she has been discharged to set up hd appt, spoke to daughter * Telephone Encounter - Dawna Greenberg OSA - 03/22/2023 2:39 PM EST LMOM to set up hd w pcp. Pt looks to be scheduled for her d/c w infectious disease. * Telephone Encounter - Caitie Rocha RN - 03/21/2023 2:54 PM EST Pt needs scheduled for hospital d/c follow up. Does not feel up to coming this week, would like it scheduled for next week. She also needs to follow up with infectious disease and a repeat colonoscopy done at 6 weeks after she is done with her IV antibiotic. Thank you documented in this encounter Plan of Treatment Upcoming Encounters Date Type Department Care Team (Late st Contact Info) Description 04/04/2023 11:15 AM EST Imaging Radiology [address] [facility] [place] [address] 04/07/2023 1:40 PM EST Office Visit Infectious Disease, [place] [address] [place] [address] Baudilio Oates, [address] [place] [address] 04/25/2023 3:15 PM EST Office Visit General Surgery, [place] [address] [place] [address] Gigi Colby, [address] [place] [address] 05/04/2023 11:00 AM EST Imaging Radiology, [facility] [address] [facility] [place] [address] 06/02/2023 1:00 PM EST Nurse Only Ancillary 65 [facility] 293 [place] [address] [place], Nurse Annual Wellness Visit [address] [place] [address] 06/09/2023 11:30 AM EST Office Visit Allergy/Immunology [facility] [place] [address] [place] [address] Lydia Zafar PA-C [address] [place] [address] 06/14/2023 2:30 PM EST Hospital Encounter ENDO [facility], Endoscopy Room [facility] [address] [facility] [place] [phone] Judd Adams MD 132 [facility] [place] [address] 06/14/2023 2:30 PM EST - 06/14/2023 3:00 PM EST Surgery ENDO [facility], Endoscopy Room [facility] [address] [place] [phone] Judd Adams MD [address] [place] [address] COLONOSCOPY FLEXIBLE PROXIMAL DIAGNOSTIC 07/28/2023 10:00 AM EDT Office Visit Rheumatology [facility] [address] [employer] [place] [address] Devendra Shepherd CRNP [address] [employer] [place] [address] Scheduled Procedures Name Priority Associated Diagnoses Date/Ti [...] D LEVEL ONCE IN A LIFETIME-USE SMARTSET# [id number] Completed 05/13/2021, 09/01/2012, 01/30/2009 Albumin/Creatinine Ratio Discontinued [...] Advance Directives occurred with: Patient Care Teams Drafting Detailer Relationship Specialty Start Date End Date Manoj Weber DO [address] [place] [address] PCP - General 12/23/05 documented as of this encounter
--- OUTSIDE RECORDS SUMMARY | 2023-04-06 01:14 | External Medical Summary | Summary of Care ---
Author Name Unknown Organization [facility] Address [address] [facility] [place] [address] Phone [phone] Care Team Providers Care Heating And Air Conditioning Mechanic Name Role Phone Manoj Weber DO Primary Care Provider [phone] Encounter Details Date Type Department Care Team (Late st Contact Info) Description 03/12/2023 Orders Only Family Practice [address] [place] [address] [place] [phone] Manoj Weber DO 293 [place] [address] Allergies Active Allergy Reactions Criticality Noted Date Comments Amoxicillin Itching 06/25/2022 Amoxicillin-Pot Clavulanate Itching 06/25/19 23 Salicylates 03/03/2001 Asthmatic reaction (aspirin; no food allergies) documented as of this encounter (statuses as of 03/29/2023) Medications Medication Sig Dispensed Refills Start Date End Date Status CALCIUM + D 600-200 MG-UNIT PO TABS Take by mouth at bedtime . 0 07/07/2005 Active MULTIVITAMIN PO TABS daily 0 07/07/2005 Acti ve OSTEO BI-FLEX ADV TRIPLE ST PO TABS Take by mouth at bedtime . 0 02/02/2007 Active NASAL SALINE 0.65 % NA SOLNIndications:Mutual Fund Analyst anita sinusitis 2 squirts each nostril morning and night and every 2-4 hrs as needed for nasal dryness or congestion 1 bottle 0 02/02/2007 Active FISH OIL 1000 MG PO CAPS One each day 0 Active MUCINEX 600 MG PO [id number]:Mutual Fund Analyst anita sinusitis,Allergic rhinitis 1-2 pills by mouth [...] 200 Capsule 1 11/01/2022 11/01/19 24 Active Metoprolol Succinate ER 25 MG Oral Tablet Extended Release 24 Hour (toPROL XL)Indications:Coron amy atherosclerosis of [place] coronary artery,Patent foramen ovale,HTN, goal below 130/80 [...] as of this encounter (statuses as of 03/29/2023) Active Problems Problem Noted Date Diagnosed Date [...] 06/10/2011 ASPIRIN, CONTRAINDICATED- WHEEZING 03/10/2011 Atherosclerosis of [place] co ronary artery of [place] heart without angina pectoris 03/10/2011 Overview: Cardiac catheterization 02/12/11 30-40 % proximal LAD stenosis Diagonal 70 % Obtuse marginal 50% Systolic Fctn is normal Patent foramen ovale 01/01/2011 ADVANCE DIRECTIVE INFORMATION 07/07/2005 Overview: No, Advance Directive brochure given to patient at prior appointment. documented as of this encounter (statuses as of 03/29/2023) Resolved Problems Problem Noted Date Diagnosed Date Resolved Date Encounter for examination fo r normal comparison and control in clinical research program 09/04/2018 12/10/2019 Overview: DO NOT DELETE Fran [employer] DETECT Study: Project # [id number], Company Secretary: Joe Pelletier, PhD. SUMMARY: Goal: Establish test [...] contact study staff at ; after hours Company Secretary via the [facility] cementing machine operator . Please contact study team before resolving/deleting from patients problem list. Study phone number: [phone]. Diagnosis changed due to Research Module. Go to Snapshot for study details. Encounter for examination fo r normal comparison and control in clinical research program 09/04/2018 01/07/2022 Overview: DO NOT DELETE - Fran [facility] DETECT Study: Project # [id number], Company Secretary: Kahlil Augustin, MS, MPH. SUMMARY: Goal: Establish [...] contact study staff at ; after hours Company Secretary via the [facility] cementing machine operator . - Please contact study team before resolving/deleting from patients problem list. Study phone number: [phone]. Diagnosis changed due to Research Module. Go to Snapshot for study details. 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 current use of ant [...] as of this encounter (statuses as of 03/29/2023) Immunizations Name Administration Dates Next Due COVID-19 mRNA, LNP-s, No Pre serve, 2-Dose Series (Ocular Therapeutix) 04/16/2021,07/21/2020,06/23/2020 Pneumococcal Conjugate Vacc, 13 Valent (Prevnar) 12/01/2015 Pneumococcal Polysaccharide PPV23 (Pneumovax) 08/09/2017,07/29/2008 SEASONAL INFLUENZA, PF, 6 M & Above, IM , (FLULAVAL or FLUZONE) 01/03/2020,02/10/2018,02/02/2017 Seasonal Influenza, Quadriva lent Hd (Fluzone Hd) 03/05/2022,04/27/2021 Seasonal Influenza, Quadriva lent, No Preserve, IM 01/26/2016 Seasonal Influenza, Split, I IV3, With Preserve, Inj 01/29/2015,03/15/2013,05/03/2012,110 06/2010,03/10/2010,02/15/2008,02/03/20 07 01/30/2016 Seasonal Influenza, Trivalen t, [...] 2:11 PM EDT Sexual Orientation Straight 01/05/2019 2 :11 PM EDT Job Start Date Occupation Industry Not on file Not on file Not on file documented as of this encounter Plan of Treatment Upcoming Encounters Date Type Department Care Team (Late st Contact Info) Description 04/04/2023 11:15 AM EST Imaging Radiology [address] [place] [address] 04/07/2023 1:40 PM EST Office Visit Infectious Disease, [place] [address] [place] [address] Baudilio Oates, [address] [place] [address] 04/25/2023 3:15 PM EST Office Visit General Surgery, [place] [address] [place] [address] Gigi Colby, [address] [place] [address] 05/04/2023 11:00 AM EST Imaging Radiology, [facility] [address] [place] [address] 06/02/2023 1:00 PM EST Nurse Only Ancillary 65 [facility] 293 [place] [address] College, Nurse Annual Wellness Visit [address] [address] 06/09/2023 11:30 AM EST Office Visit Allergy/Immunology [facility] [address] [place] [address] Lydia Zafar PA-C [address] [place] [address] 06/14/2023 2:30 PM EST Hospital Encounter ENDO [facility], Endoscopy Room [facility] [address] [place] [phone] Judd Adams MD [address] [place] [address] 06/14/2023 2:30 PM EST - 06/14/2023 3:00 PM EST Surgery ENDO O[facility], Endoscopy Room [facility] [address] [place] [phone] Judd Adams MD [address] [place] [address] COLONOSCOPY FLEXIBLE PROXIMAL DIAGNOSTIC 07/28/2023 10:00 AM EDT Office Visit Rheumatology [facility] [address] [place] [address] Devendra Shepherd CRNP [address] [place] [address] Scheduled Procedures Name Priority Associated Diagnoses Date/Ti [...] D LEVEL ONCE IN A LIFETIME-USE SMARTSET# [id number] Completed 05/13/2021, 09/01/2012, 01/30/2009 Albumin/Creatinine Ratio Discontinued [...] study not interpreted or resulted by a [employer] or [employer] contracted radiologist. Manoj Weber DO RAD CT documented in this encounter Additional Health Concerns Infection Onset [...] Advance Directives occurred with: Patient Care Teams Heating And Air Conditioning Mechanic Relationship Specialty Start Date End Date Manoj Weber DO 293 [place] [address] PCP - General 12/23/05 documented as of this encounter
--- OUTSIDE RECORDS SUMMARY | 2023-04-06 01:14 | External Medical Summary | Summary of Care ---
Author Name Unknown Organization [facility] Address [address] [place] [facility] [place] [address] Phone [phone] Care Team Providers Care Transport Aircrewman Name Role Phone Manoj Weber DO Primary Care Provider Encounter Details Date Type Department Care Team (Late st Contact Info) Description 03/22/2023 [facility] [address] [place] [phone] Manoj Weber DO [address] [place] [address] Allergies Active Allergy Reactions Criticality Noted Date [...] 02/02/2007 Active NASAL SALINE 0.65 % NA SOLNIndications:Marketing Associate anita sinusitis 2 squirts each nostril morning and night and every 2-4 hrs as needed for nasal dryness or congestion 1 bottle 0 02/02/2007 Active FISH OIL 1000 MG PO CAPS One each day 0 Active MUCINEX 600 MG PO [id number]:Marketing Associate anita sinusitis,Allergic rhinitis 1-2 pills by mouth [...] 24 Hour (toPROL XL)Indications:Coron amy atherosclerosis of [place] coronary artery,Patent foramen ovale,HTN, goal below 130/80 [...] 06/10/2011 ASPIRIN, CONTRAINDICATED- WHEEZING 03/10/2011 Atherosclerosis of [place] co ronary artery of [place] heart without angina pectoris 03/10/2011 Overview: Cardiac [...] 09/04/2018 12/10/2019 Overview: DO NOT DELETE Fran [employer] DETECT Study: Project # [id number], Cigar Maker: Joe Pelletier, PhD. SUMMARY: Goal: Establish test [...] contact study staff at ; after hours Cigar Maker via the [facility] scalp treatment operator . Please contact study team before resolving/deleting from patients problem list. Study phone number: [phone]. Diagnosis changed due to Research Module. Go to Snapshot for study details. Encounter for examination fo r normal comparison and control in clinical research program 09/04/2018 01/07/2022 Overview: DO NOT DELETE - Fran [facility] DETECT Study: Project # [id number], Cigar Maker: Kahlil Augustin, MS, MPH. SUMMARY: Goal: Establish [...] contact study staff at ; after hours Cigar Maker via the [facility] scalp treatment operator . - Please contact study team before resolving/deleting from patients problem list. Study phone number: [phone]. Diagnosis changed due to Research Module. Go to Snapshot for study details. 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 current use of ant icoagulant therapy 01/01/2011 [...] mRNA, LNP-s, No Pre serve, 2-Dose Series (Leanplum) 04/16/2021,07/21/2020,06/23/2020 Pneumococcal Conjugate Vacc, 13 Valent (Prevnar) [...] Description 04/04/2023 11:15 AM EST Imaging Radiology [address] [facility] [address] 04/07/2023 1:40 PM EST Office Visit Infectious Disease, [place] [address] [place] [address] Baudilio Oates, [address] [place] [address] 04/25/2023 3:15 PM EST Office Visit General Surgery, [place] [address] [place] [address] Gigi Colby, [address] [place] [address] 05/04/2023 11:00 AM EST Imaging Radiology, [facility] [address] [facility] [address] 06/02/2023 1:00 PM EST Nurse Only Ancillary 65 [facility] 293 [facility], [place] [address] [place], Nurse Annual Wellness Visit [address] [address] 06/09/2023 11:30 AM EST Office Visit Allergy/Immunology [facility] [address] [place], [place] [address] Lydia Zafar PA-C [address] [place], [place] [address] 06/14/2023 2:30 PM EST Hospital Encounter ENDO [facility], Endoscopy Room [facility] [address] [place] [phone] Judd Adams MD [address] [place] [address] 06/14/2023 2:30 PM EST - 06/14/2023 3:00 PM EST Surgery ENDO [facility], Endoscopy Room [facility] [address] [place] [phone] Judd Adams MD [address] [place] [address] COLONOSCOPY FLEXIBLE PROXIMAL DIAGNOSTIC 07/28/2023 10:00 AM EDT Office Visit Rheumatology [facility] [address] [facility] [place], [place] [address] Devendra Shepherd CRNP [address] [facility] [place], [place] [address] Scheduled Procedures Name Priority Associated Diagnoses Date/Ti [...] D LEVEL ONCE IN A LIFETIME-USE SMARTSET# [id number] Completed 05/13/2021, 09/01/2012, 01/30/2009 Albumin/Creatinine Ratio Discontinued [...] interpreted or resulted by a [facility] or [employer] contracted radiologist. Manoj Weber DO RAD CT documented in this encounter Advance Directives Latest Code Status on File Code Status Date Activated Date Inactivated Comments Full Code 03/13/2023 2:20 AM 03/17/2023 6:39 PM This order reflects the patients wishes and were consensually agreed upon. Question Answer Comments Discussion of Advance Directives occurred with: Patient Care Teams Transport Aircrewman Relationship Specialty Start Date End Date Manoj Weber DO 293 [place] [address] PCP - General 12/23/05 documented as of this encounter
--- OUTSIDE RECORDS SUMMARY | 2023-04-06 01:14 | External Medical Summary | Summary of Care ---
Author Name Unknown Organization [facility] Address [address] [place] [address] Phone [phone] Care Team Providers Care Sustainability Project Manager Name Role Phone Manoj Weber DO Primary Care Provider [phone] Encounter Details Date Type Department Care Team (Late st Contact Info) Description 03/28/2023 Orders Only Family Practice [address] [place] [address] [place] [phone] Manoj Weber DO [address] [place] [address] Allergies Active Allergy Reactions Criticality Noted Date [...] 02/02/2007 Active NASAL SALINE 0.65 % NA SOLNIndications:Cut Off Machine Unloader anita sinusitis 2 squirts each nostril morning and night and every 2-4 hrs as needed for nasal dryness or congestion 1 bottle 0 02/02/2007 Active FISH OIL 1000 MG PO CAPS One each day 0 Active MUCINEX 600 MG PO [id number]:Cut Off Machine Unloader anita sinusitis,Allergic rhinitis 1-2 pills by mouth [...] 24 Hour (toPROL XL)Indications:Coron amy atherosclerosis of [place] coronary artery,Patent foramen ovale,HTN, goal below 130/80 [...] 06/10/2011 ASPIRIN, CONTRAINDICATED- WHEEZING 03/10/2011 Atherosclerosis of [place] co ronary artery of [place] heart without angina pectoris 03/10/2011 Overview: Cardiac [...] 09/04/2018 12/10/2019 Overview: DO NOT DELETE Fran [employer] DETECT Study: Project # [id number], Jacker: Joe Pelletier, PhD. SUMMARY: Goal: Establish test [...] contact study staff at ; after hours Jacker via the [facility] lawn mower operator . Please contact study team before resolving/deleting from patients problem list. Study phone number: [phone]. Diagnosis changed due to Research Module. Go to Snapshot for study details. Encounter for examination fo r normal comparison and control in clinical research program 09/04/2018 01/07/2022 Overview: DO NOT DELETE - Fran [facility] DETECT Study: Project # [id number], Jacker: Kahlil Augustin, MS, MPH. SUMMARY: Goal: Establish [...] contact study staff at ; after hours Jacker via the [facility] lawn mower operator . - Please contact study team before resolving/deleting from patients problem list. Study phone number: [phone]. Diagnosis changed due to Research Module. Go to Snapshot for study details. 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 11/15/2018 Lung collapse 08/13/2011 08/09/2018 Allergic rhinitis 06/24/2011 08/11/2018 GERD (gastroesophageal reflux disease) 06/24/2011 02/10/2018 HTN, goal below 130/80 03/19/201102/21 TIA (transient ischemic attack) 01/01/2011 02/10/2018 terminal makeup operator current use of ant icoagulant therapy [...] mRNA, LNP-s, No Pre serve, 2-Dose Series ([employer]ake) 04/16/2021,07/21/2020,06/23/2020 Pneumococcal Conjugate Vacc, 13 Valent (Prevnar) [...] Description 04/04/2023 11:15 AM EST Imaging Radiology [address] 132 [facility] [address] 04/07/2023 1:40 PM EST Office Visit Infectious Disease, [place] [address] [place] [address] Baudilio Oates, [address] [place] [address] 04/25/2023 3:15 PM EST Office Visit General Surgery, [place] [address] [place] [address] Gigi Colby, [address] [place] [address] 05/04/2023 11:00 AM EST Imaging Radiology, [facility] [facility] [address] 06/02/2023 1:00 PM EST Nurse Only Ancillary 65 [facility] 293 [facility], [place] [address] [place], Nurse Annual Wellness Visit [address] [address] 06/09/2023 11:30 AM EST Office Visit Allergy/Immunology [facility] [address] [place], [place] [address] Lydia Zafar PA-C [address] [place], [place] [address] 06/14/2023 2:30 PM EST Hospital Encounter ENDO [facility], Endoscopy Room O[facility] [address] [place] [phone] Judd Adams MD [address] [place] [address] 06/14/2023 2:30 PM EST - 06/14/2023 3:00 PM EST Surgery ENDO [facility], Endoscopy Room [facility] [address] [place] [phone] Judd Adams MD [address] [place] [address] COLONOSCOPY FLEXIBLE PROXIMAL DIAGNOSTIC 07/28/2023 10:00 AM EDT Office Visit Rheumatology [facility] [address] [facility] [place], [place] [address] Devendra Shepherd CRNP [address] [facility] [place], [place] [address] Scheduled Procedures Name Priority Associated Diagnoses Date/Ti [...] D LEVEL ONCE IN A LIFETIME-USE SMARTSET# [id number] Completed 05/13/2021, 09/01/2012, 01/30/2009 Albumin/Creatinine Ratio Discontinued [...] interpreted or resulted by a [facility] or [employer] contracted radiologist. Manoj Weber DO RAD CT documented in this encounter Advance Directives Latest Code Status on File Code Status Date Activated Date Inactivated Comments Full Code 03/13/2023 2:20 AM 03/17/2023 6:39 PM This order reflects the patients wishes and were consensually agreed upon. Question Answer Comments Discussion of Advance Directives occurred with: Patient Care Teams Sustainability Project Manager Relationship Specialty Start Date End Date Manoj Weber DO [address] [place] [address] PCP - General 12/23/05 documented as of this encounter
--- OUTSIDE RECORDS SUMMARY | 2023-04-06 01:14 | External Medical Summary | Summary of Care ---
Author Name Unknown Organization [facility] Address [address] [facility] [place] [address] Phone [phone] Care Team Providers Care Cooker Casing Name Role Phone Manoj Weber DO Primary Care Provider [phone] Reason for Visit * Reason Comments Medication Refill Encounter Details Date Type Department Care Team (Late st Contact Info) Description 03/29/2023 Refill Cardiology, [facility] 132 [place] [address] Manoj Weber DO [address] [place] [address] Dyslipidemia, goal LDL below 70 Allergies Active Allergy Reactions Criticality Noted Date [...] 7 Active NASAL SALINE 0.65 % NA SOLNIndications:Benefits Clerk anita sinusitis 2 squirts each nostril morning and night and every 2-4 hrs as needed for nasal dryness or congestion 1 bottle 0 7 Active FISH OIL 1000 MG PO CAPS One each day 0 Active MUCINEX 600 MG PO [id number]:Benefits Clerk anita sinusitis,Allergic rhinitis 1-2 pills by mouth [...] 200 Capsule 1 3 11/01/19 24 Active Metoprolol Succinate ER 25 MG Oral Tablet Extended Release 24 Hour (toPROL XL)Indications:Coron amy atherosclerosis of [place] coronary artery,Patent foramen ovale,HTN, goal below 130/80 [...] for Diarrhea. 30 Tablet 0 3 Active ertapenem INJ IV (AMBULATORY) Administer 1 g intravenously daily for 21 days. 21 g 0 3 04/07/20 23 Active Rosuvastatin Calcium 20 MG Oral Tablet (Crestor)Indications :Dyslipidemia, goal LDL below 70 TAKE ONE TABLET BY MOUTH AT BEDTIME 100 Tablet 0 3 03/28/20 24 Active Rosuvastatin Calcium 20 MG Oral Tablet (Crestor)Indications :Dyslipidemia, goal LDL below 70 TAKE ONE TABLET BY MOUTH AT BEDTIME 100 Tablet 0 3 03/29/20 23 Discontinu ed(Refill) documented as of this encounter (statuses as [...] 06/10/2011 ASPIRIN, CONTRAINDICATED- WHEEZING 03/10/2011 Atherosclerosis of [place] co ronary artery of [place] heart without angina pectoris 03/10/2011 Overview: Cardiac [...] 12/10/2019 Overview: DO NOT DELETE Fran [facility] DETECT Study: Project # [id number], Naturopathic Doctor: Joe Pelletier, PhD. SUMMARY: Goal: Establish test [...] contact study staff at ; after hours Naturopathic Doctor via the [facility] hospital sandblast operator . Please contact study team before resolving/deleting from patients problem list. Study phone number: [phone]. Diagnosis changed due to Research Module. Go to Snapshot for study details. Encounter for examination fo r normal comparison and control in clinical research program 09/04/2018 01/07/2022 Overview: DO NOT DELETE - [employer] DETECT Study: Project # [id number], Naturopathic Doctor: Kahlil Augustin, MS, MPH. SUMMARY: Goal: Establish [...] contact study staff at ; after hours Naturopathic Doctor via the [facility] hospital sandblast operator . - Please contact study team before resolving/deleting from patients problem list. Study phone number: [phone]. Diagnosis changed due to Research Module. Go [...] encounter Miscellaneous Notes * Telephone Encounter - Alva Thompson PA-C - 03/29/2023 9:02 AM EST Signed Prescriptions: Disp Refills Rosuvastatin Calcium 20 MG Oral Tablet (Cr*100 Ta*0 Sig: TAKE ONE TABLET BY MOUTH AT BEDTIMEAuthorizing Provider: ALVA THOMPSON * Telephone Encounter - Urmila Díaz COT - 03/29/2023 8:17 AM ESTPending Prescriptions: Disp Refills Rosuvastatin Calcium 20 MG Oral Tablet (Cr*90 Tab*0 Sig: TAKE ONE TABLET BY MOUTH AT BEDTIME * Telephone Encounter - Urmila Díaz COT - 03/29/2023 8:17 AM EST Scheduling -- please contact pt for follow up. * Telephone Encounter - Urmila Díaz COT - 03/29/2023 8:17 AM EST Did you pend patient's preferred pharmacy and medication before forwarding?yes Pharmacy: [facility] Pending Prescriptions: Disp Refills Rosuvastatin Calcium 20 MG Oral Tablet (C*90 Tab*0 Sig: TAKE ONE TABLET BY MOUTH AT BEDTIME Last Visit: 07/03/2021 (in office), Visit date not found (telemedicine) Next Visit: Visit date not found If no future appointments scheduled, and last appointment is greater than a year ago, please schedule patient for a follow-up appointment Last date the medication was ordered: 09-22-2022 Is this request for a controlled substance?No Urine Drug Screen:No results found. However, due to the size of the patient record, not all encounters were searched. Please check Results Review for a complete set of results. Patient Phone Numbers Labs: Lab Results Component Value Date/Time CREAT 0.52 (A) 03/21/2023 12:00 AM CREAT 0.7 11/28/2019 09:25 AM POTASSIUM 2.8 (A) 03/21/2023 12:00 AM POTASSIUM 4.3 11/28/2019 09:25 AM TSH 1.81 03/16/2017 09:16 AM LDLCALC 62 03/11/2022 09:00 AM LDLCALC 63 11/28/2019 09:25 AM LDLDIRECT NOT APPLICABLE 11/28/2019 09:25 AM LDLDIRECT 90 07/22/2016 04:26 PM ALT 8 (L) 03/17/2023 06:09 AM ALT 16 11/28/2019 09:25 AM documented in this encounter Plan of Treatment Upcoming Encounters Date Type Department Care Team (Late st Contact Info) Description 04/04/2023 11:15 AM EST Imaging Radiology [address] 132 [facility] [place] [address] 04/07/2023 1:40 PM EST Office Visit Infectious Disease, [place] [address] [place] [address] Baudilio Oates, [address] [place] [address] 04/25/2023 3:15 PM EST Office Visit General Surgery, [place] [address] [place] [address] Gigi Colby, [address] [place] [address] 05/04/2023 11:00 AM EST Imaging Radiology, [facility] [address] [facility] [address] 06/02/2023 1:00 PM EST Nurse Only Ancillary 65 [facility] 293 [facility], [place] [address] [place], Nurse Annual Wellness Visit 65 [facility] 293 [facility] [place] [address] 06/09/2023 11:30 AM EST Office Visit Allergy[facility]Immunology [facility] [address] [place] [address] Lydia Zafar PA-C [address] [place] [address] 06/14/2023 2:30 PM EST Hospital Encounter ENDO [facility], Endoscopy Room [facility] [address] [place] [phone] Judd Adams MD [address] [place] [address] 06/14/2023 2:30 PM EST - 06/14/2023 3:00 PM EST Surgery ENDO [facility], Endoscopy Room [facility] [address] [place] [phone] Judd Adams MD [address] [place] [address] COLONOSCOPY FLEXIBLE PROXIMAL DIAGNOSTIC 07/28/2023 10:00 AM EDT Office Visit Rheumatology [facility] [address] [employer] [place] [address] Devendra Shepherd CRNP [address] [email or web address] [place] [address] Scheduled Procedures Name Priority Associated Diagnoses Date/Ti [...] D LEVEL ONCE IN A LIFETIME-USE SMARTSET# [id number] Completed 05/13/2021, 09/01/2012, 01/30/2009 Albumin/Creatinine Ratio Discontinued [...] as of this encounter Visit Diagnoses Diagnosis Dyslipidemia, goal LDL below 70 Other and unspecified hyperlipidemia Diverticulitis Diverticulitis of colon (without mention of [...] Advance Directives occurred with: Patient Care Teams Cooker Casing Relationship Specialty Start Date End Date Manoj Weber DO [address] [place] [address] PCP - General 12/23/05 documented as of this encounter
--- OUTSIDE RECORDS SUMMARY | 2023-04-06 01:15 | External Medical Summary | Summary of Care ---
Author Name Unknown Organization [facility] Address [address] [place] [address] Phone [phone] Care Team Providers Care Insurance Agents Supervisor Name Role Phone AriannauvaldoManoj DO Primary Care Provider [phone] Reason for Visit * Reason Onset Date Comments Appointment 03/21/2023 Encounter Details Date Type Department Care Team (Late st Contact Info) Description 03/21/2023 Environmental Safety Specialist Telephone Family Practice 65 [facility] [address] [place] [address] Caitie Rocha, RN [address] [place] [address] Appointment Allergies Active Allergy Reactions [...] 02/02/2007 Active NASAL SALINE 0.65 % NA SOLNIndications:Spring Maker anita sinusitis 2 squirts each nostril morning and night and every 2-4 hrs as needed for nasal dryness or congestion 1 bottle 0 02/02/2007 Active FISH OIL 1000 MG PO CAPS One each day 0 Active MUCINEX 600 MG PO [id number]:Spring Maker anita sinusitis,Allergic rhinitis 1-2 pills by mouth [...] 24 Hour (toPROL XL)Indications:Coron amy atherosclerosis of [place] coronary artery,Patent foramen ovale,HTN, goal below 130/80 [...] 06/10/2011 ASPIRIN, CONTRAINDICATED- WHEEZING 03/10/2011 Atherosclerosis of [place] co ronary artery of [place] heart without angina pectoris 03/10/2011 Overview: Cardiac [...] 09/04/2018 12/10/2019 Overview: DO NOT DELETE Fran [employer] Study: Project # [id number], Diagnostic Imaging Manager: Joe Pelletier, PhD. SUMMARY: Goal: Establish [...] contact study staff at ; after hours Diagnostic Imaging Manager via the [facility] photographic enlarger operator . Please contact study team before resolving/deleting from patients problem list. Study phone number: [phone]. Diagnosis changed due to Research Module. Go to Snapshot for study details. Encounter for examination fo r normal comparison and control in clinical research program 09/04/2018 01/07/2022 Overview: DO NOT DELETE - [employer] DAY Study: Project # [id number], Diagnostic Imaging Manager: Kahlil Augustin, MS, MPH. SUMMARY: Goal: [...] contact study staff at ; after hours Diagnostic Imaging Manager via the [facility] photographic enlarger operator . - Please contact study team before resolving/deleting from patients problem list. Study phone number: [phone]. Diagnosis changed due to Research Module. Go to Snapshot for study details. 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 01/01/2011 [...] mRNA, LNP-s, No Pre serve, 2-Dose Series ([employer]) 04/16/2021,07/21/2020,06/23/2020 Pneumococcal Conjugate Vacc, 13 Valent (Prevnar) [...] Description 04/04/2023 11:15 AM EST Imaging Radiology [address] 132 [facility] [place] [address] 04/07/2023 1:40 PM EST Office Visit Infectious Disease, [place] [address] [place] [address] Baudilio Oates, [address] [place] [address] 04/25/2023 3:15 PM EST Office Visit General Surgery, [place] [address] [place] [address] Gigi Colby, [address] [place] [address] 05/04/2023 11:00 AM EST Imaging Radiology, [facility] 2520 [facility] [place] [address] 06/02/2023 1:00 PM EST Nurse Only Ancillary 65 [facility] 293 [place] [address] [place], Nurse Annual Wellness Visit [address] [place] [address] 06/09/2023 11:30 AM EST Office Visit Allergy/Immunology [facility] [place] [address] [place] [address] Lydia Zafar PA-C [address] [place] [address] 06/14/2023 2:30 PM EST Hospital Encounter ENDO [facility], Endoscopy Room [facility] 132 [facility] [place] [phone] Judd Adams MD 132 [facility] [place] [address] 06/14/2023 2:30 PM EST - 06/14/2023 3:00 PM EST Surgery ENDO [facility], Endoscopy Room [facility] [address] [place] [phone] Judd Adams MD [address] [place] [address] COLONOSCOPY FLEXIBLE PROXIMAL DIAGNOSTIC 07/28/2023 10:00 AM EDT Office Visit Rheumatology [facility] [address] [employer] [place] [address] Devendra Shepherd CRNP [address] [place] [address] Scheduled Procedures Name Priority Associated Diagnoses Date/Ti [...] D LEVEL ONCE IN A LIFETIME-USE SMARTSET# [id number] Completed 05/13/2021, 09/01/2012, 01/30/2009 Albumin/Creatinine Ratio Discontinued [...] Advance Directives occurred with: Patient Care Teams Insurance Agents Supervisor Relationship Specialty Start Date End Date Manoj Weber DO [address] [place] [address] PCP - General 12/23/05 documented as of this encounter
--- OUTSIDE RECORDS SUMMARY | 2023-04-06 01:15 | External Medical Summary | Summary of Care ---
Author Name Unknown Organization [facility] Address [address] [facility] [place] [address] Phone [phone] Care Team Providers Care Natural Gas Trader Name Role Phone Manoj Weber DO Primary Care Provider [phone] Reason for Visit * Reason Onset Date Comments Test Results 03/22/2023 Encounter Details Date Type Department Care Team (Late st Contact Info) Description 03/22/2023 Telephone Family Practice 65 [facility] [address] [place] [id number] Manoj Weber [address] [place] [address] Test Results (/) Allergies Active Allergy Reactions Criticality Noted Date [...] 02/02/2007 Active NASAL SALINE 0.65 % NA SOLNIndications:Financial Developer anita sinusitis 2 squirts each nostril morning and night and every 2-4 hrs as needed for nasal dryness or congestion 1 bottle 0 02/02/2007 Active FISH OIL 1000 MG PO CAPS One each day 0 Active MUCINEX 600 MG PO [id number]:Financial Developer anita sinusitis,Allergic rhinitis 1-2 pills by mouth [...] 24 Hour (toPROL XL)Indications:Coron amy atherosclerosis of [place] coronary artery,Patent foramen ovale,HTN, goal below 130/80 [...] 06/10/2011 ASPIRIN, CONTRAINDICATED- WHEEZING 03/10/2011 Atherosclerosis of [place] co ronary artery of [place] heart without angina pectoris 03/10/2011 Overview: Cardiac [...] 09/04/2018 12/10/2019 Overview: DO NOT DELETE Fran [employer] DAY Study: Project # [id number], Sprayer Automatic Spray Machine: Joe Pelletier, PhD. SUMMARY: Goal: Establish test [...] contact study staff at ; after hours Sprayer Automatic Spray Machine via the [facility] feeder operator automatic . Please contact study team before resolving/deleting from patients problem list. Study phone number: [phone]. Diagnosis changed due to Research Module. Go to Snapshot for study details. Encounter for examination fo r normal comparison and control in clinical research program 09/04/2018 01/07/2022 Overview: DO NOT DELETE - Fran [employer] DAY Study: Project # [id number], Sprayer Automatic Spray Machine: Kahlil Augustin, MS, MPH. SUMMARY: Goal: Establish [...] contact study staff at ; after hours Sprayer Automatic Spray Machine via the [facility] feeder operator automatic . - Please contact study team before resolving/deleting from patients problem list. Study phone number: [phone]. Diagnosis changed due to Research Module. Go to Snapshot for study details. 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 Will call by EMS. EMS called. * Telephone Encounter - Manoj Weber DO - 03/22/2023 12:52 PM EST Patient needs to return to the ED/ has continued symptoms while on ABX Needs Re imaging to see if abscess is enlarging. She is not eating and drinking . * Telephone Encounter - Tatiana Coyle LPN - 03/22/2023 12:08 PM EST Patient is aware and will comply. Patient has picc line in. Not able to leave her house. She is vomiting and has diarrhea. Vomiting worse in the AM typically has 3 to 4 episodes a day. Advised to take zofran prior to potassium. Take the potassium applesauce and a bit of toast. Ordered home phlebotomy for tomorrow. * Telephone Encounter - Tatiana Coyle LPN - 03/22/2023 12:01 PM EST ----- Message from Manoj Weber DO sent at 03/22/2023 11:57 AM EST ----- Potassium is very low Start KCL 20 meq three times a day today then decrease to KCL 20 meq two times a day Repeat BMP and magnesium tomorrow. See if patient is able to eat and drink. See if vomiting or diarrhea are present. documented in this encounter Plan of Treatment Upcoming Encounters Date Type Department Care Team (Late st Contact Info) Description 03/24/2023 9:30 AM EST Laboratory Lab Mobile Phlebotomy [facility] [address] [place] [address] [facility] Mobile Home Draw [address] [place] [address] 04/04/2023 11:15 AM EST Imaging Radiology [address], [address] [address] 04/07/2023 1:40 PM EST Office Visit Infectious Disease, [place] [address] [place] [address] Baudilio Oates DO [address] [place] [address] 04/25/2023 3:15 PM EST Office Visit General Surgery, [place] [address] [place] [address] Gigi Colby, DO [address] [facility] [place] [address] 05/04/2023 11:00 AM EST Imaging Radiology, [place] [address] [facility] [place] [address] 06/02/2023 1:00 PM EST Nurse Only Ancillary 65 [facility] 293 [place] [address] [place], Nurse Annual Wellness Visit 65 [facility] 293 [facility] [address] 06/09/2023 11:30 AM EST [facility] [place] [address] [place] [address] Lydia Zafar PA-C 200 [facility] [place] [address] 06/14/2023 2:30 PM EST Hospital Encounter ENDO [facility], Endoscopy Room [facility] [address] [place] [phone] Judd Adams MD [address] [place] [address] 06/14/2023 2:30 PM EST - 06/14/2023 3:00 PM EST Surgery ENDO [facility], Endoscopy Room [facility] [address] [place] [phone] Judd Adams MD [address] [place] [address] COLONOSCOPY FLEXIBLE PROXIMAL DIAGNOSTIC 07/28/2023 10:00 AM EDT Office Visit Rheumatology [address] [place] [address] Devendra Shepherd CRNP [address] [place] [address] [place] [address] Scheduled Orders Name Type Priority Associated Diagnoses Orde r Schedule BASIC METABOLIC PANEL Lab STAT Low serum potassium Expected: 03/23/2023, Expires: 03/21/2024 MAGNESIUM Lab STAT Low serum potassium Expected: 03/23/2023, Expires: 03/21/2024 Scheduled Procedures Name Priority Associated Diagnoses Date/Ti [...] D LEVEL ONCE IN A LIFETIME-USE SMARTSET# [id number] Completed 05/13/2021, 09/01/2012, 01/30/2009 Albumin/Creatinine Ratio Discontinued [...] as of this encounter Visit Diagnoses Diagnosis Low serum potassium- Primary Diverticulitis Diverticulitis of colon (without mention [...] Advance Directives occurred with: Patient Care Teams Natural Gas Trader Relationship Specialty Start Date End Date Manoj Weber DO 293 [place] [address] PCP - General 12/23/05 documented as of this encounter
--- NOTE | 2023-04-06 01:56 | History & Physical Report ---
Date of Service April 06, 2023 Assessment & Plan (1) Generalized weakness: Plan: 77-year-old female with past med significant for hyperlipidemia, asthma mild persistent, chronic sinusitis, history of CAD, patent foramen ovale, atrial septal aneurysm, GERD, diverticulitis of sigmoid colon, osteoporosis, aspirin contraindicated, presents with nausea and weakness and not feeling well. Patient had prolonged antibiotic course for diverticular abscess. She was admitted initially on February 10 at [facility] for diverticular abscess treated with Vanco cefepime and metronidazole and she was discharged on cefdinir and metronidazole. She followed with PCP for abdominal pain March 03. CT scan showed diffuse diverticulitis with abscess abscess measuring 3.2 x 2.0 x 3.4 cm. Patient was admitted to [facility]. CT scan also showed some nonspecific GALLBLADDER wall thickening. She had cholecystectomy on 03/08. 03/12/23 had worsening nausea and abdominal pain and repeat his CAT scan showed increasing diverticular abscess to 2.6 x 4.7 cm. General surgery consulted and advised for transfer to [facility] for IR drainage. At [facility] IR drainage was deemed unsuitable due to its intramural location. ID was consulted. ID recommended IV Invanz. Had PICC line and was discharged. ID recommended Invanz for 21 days. Again she was admitted [facility] on 03/22/23 for weakness and abdominal pain. ID was consulted and Invanz was changed to Cipro and Flagyl due to nausea. As Patient having persistent nausea and poor appetite on March 28 GI was consulted. Repeat CT scan showed increased size of abscess. GI recommended advanced endoscopist for possible drainage. And she was transferred to [facility] on March 29. At [facility] antibiotics were changed Zosyn after testing for allergy. GI attempted lower endoscopy / endoscopic ultrasound and flexible sigmoidoscopy on 04/01/23 but was not completed due to severe diverticulosis in the sigmoid colon with narrowing of colon and spasm. IR attempted percutaneous drainage but this was aborted as a repeat CT demonstrated no abscess to drain. It was thought that abscess may have self drained after manipulation by GI. Zosyn was switched to p.o. Cipro and Augmentin and was stable to discharge 2022 for total of 9 more days of p.o. antibiotics. Patient currently thinks her abdominal infection is getting better. Yesterday she had episode of diarrhea. But today she did not move her bowels. Was feeling nauseous poor appetite. Having weakness.. Not feeling well. Denies any fevers. No chest pain or shortness of breath. No cough. No runny nose or sore throat. No headache. Hemodynamically stable. Generalized weakness Nausea Poor appetite On antibiotics for long time for diverticular abscess Currently on p.o. Augmentin and p.o. Cipro for total of 9 days starting on April 03/2023 Patient thinks her infection is getting better Had an episode of diarrhea yesterday Today did not move her bowels Hemodynamically stable No leukocytosis Labs showed magnesium of 1.0 Will replace magnesium Gentle fluids Follow repeat labs in a.m. Tachycardic on presentation currently improved Getting KUB Monitor in the hospital Hypomagnesia Replacing Follow repeat labs Abnormal EKG No chest pain or shortness of breath We will follow repeat EKG in a.m. Will follow electrolytes History of CAD On statin, beta-elisabeth GERD Protonix Hyperlipidemia On statin History of asthma Home inhalers On montelukast Right kidney lesion On the CAT scan previous admission Needs follow-up DVT prophylaxis Lovenox Disposition Monitoring med/telemetry Full code History of Present Illness Chief Complaint: Nausea and weakness Primary Care Provider: Manoj Weber DO 77-year-old female with past med significant for hyperlipidemia, asthma mild persistent, chronic sinusitis, history of CAD, patent foramen ovale, atrial septal aneurysm, GERD, diverticulitis of sigmoid colon, osteoporosis, aspirin contraindicated, presents with nausea and weakness and not feeling well. Patient had prolonged antibiotic course for diverticular abscess. She was admitted initially on February 10 at [facility] for diverticular abscess treated with Vanco cefepime and metronidazole and she was discharged on cefdinir and metronidazole. She followed with PCP for abdominal pain March 03. CT scan showed diffuse diverticulitis with abscess measuring 3.2 x 2.0 x 3.4 cm. Patient was admitted to [facility]. CT scan also showed some nonspecific GALLBLADDER wall thickening. She had cholecystectomy on 03/08. 03/12/23 had worsening nausea and abdominal pain and repeat CAT scan showed increasing diverticular abscess to 2.6 x 4.7 cm. General surgery consulted and advised for transfer to [facility] for IR drainage. At [facility] IR drainage was deemed unsuitable due to its intramural location. ID was consulted. ID recommended IV Invanz. Had PICC line and was discharged. ID recommended Invanz for 21 days. Again she was admitted [facility] on 03/22/23 for weakness and abdominal pain. ID was consulted and Invanz was changed to Cipro and Flagyl due to nausea. As Patient having persistent nausea and poor appetite on March 28 GI was consulted. Repeat CT scan showed increased size of abscess. GI recommended advanced endoscopist for possible drainage. And she was transferred to [facility] on March 29. At [facility] antibiotics were changed Zosyn after testing for allergy. GI attempted lower endoscopy / endoscopic ultrasound and flexible sigmoidoscopy on 04/01/23 but was not completed due to severe diverticulosis in the sigmoid colon with narrowing of colon and spasm. IR attempted percutaneous drainage but this was aborted as a repeat CT demonstrated no abscess to drain. It was thought that abscess may have self drained after manipulation by GI. Zosyn was switched to p.o. Cipro and Augmentin and was stable to discharge 2022 for total of 9 more days of p.o. antibiotics. Patient currently thinks her abdominal infection is getting better. Yesterday she had episode of diarrhea. But today she did not move her bowels. Was feeling nauseous poor appetite. Having weakness.. Not feeling well. Denies any fevers. No chest pain or shortness of breath. No cough. No runny nose or sore throat. No headache. Hemodynamically stable. Past medical history. As mentioned above Past surgical history. Bronchoscopy. Colonoscopy and EGD with biopsy. Knee arthroscopy. [place] cholecystectomy. Right hip fracture repair. Flexible sigmoidoscopy. Sinus surgery. Social history. . Quit smoking 1977. Smoked 1 pack a day for 13 years. Alcohol rarely. No drug use Family history. Mother had colon cancer. Hypertension. Half sister had multiple sclerosis. Half Brother had COPD. Allergies Allergy/AdvReac Type Severity Reaction Status Date / Time amoxicillin Allergy Severe Itching Unverified 04/05/23 20:34 aspirin Allergy Mild wheeze Verified 04/05/23 20:34 Home Medications Medication Instructions Recorded Confirmed Type multivitamin 1 tab PO DAILY ##0 11/12/10 04/05/23 History omega 0-clv-mve-fish oil 1,000 mg 1 cap PO DAILY ##0 11/12/10 04/05/23 History (120 mg-180 mg) capsule (Fish Oil) cholecalciferol (vitamin D3) 25 1,000 unit PO DAILY 01/25/19 04/05/23 History mcg (1,000 unit) capsule (Vitamin D3) metoprolol succinate 25 mg 25 mg PO QAM 01/25/19 04/05/23 History tablet,extended release 24 hr ascorbic acid (vitamin C) 250 mg 250 mg PO QAM 06/01/19 04/05/23 History chewable tablet (Vitamin C) fluticasone propionate 50 1 spray intranasal DAILY PRN 06/01/19 04/05/23 History mcg/actuation nasal Allergy Symptoms spray,suspension (Flonase Allergy Relief) glucosamine-chondroitin 250 mg-200 1 tab PO QAM 06/01/19 04/05/23 History mg tablet (Osteo Bi-Flex) denosumab 60 mg/mL subcutaneous 60 mg subcut .[id number] 02/10/23 04/05/23 History syringe (Prolia) fluticasone fur. 200 mcg-umeclid 1 inh inhalation PM 02/10/23 04/05/23 History 62.5 mcg-vilant 25 mcg inhalat.powder (Trelegy Ellipta) rosuvastatin 20 mg tablet 20 mg PO HS 02/10/23 04/05/23 History Lactobacillus acidophilus 1 1,000 mmu cells PO DAILY #7 caps 02/14/23 04/05/23 Rx billion cell capsule cholecalciferol (vitamin D3) 125 5,000 unit PO QAM 30 days #30 tabs 03/29/23 Rx mcg (5,000 unit) tablet pantoprazole 40 mg tablet,delayed 40 mg PO BID 30 days #60 tabs 03/29/23 04/05/23 Rx release amoxicillin 875 mg-potassium 1 tab PO BID 04/06/23 04/06/23 History clavulanate 125 mg tablet ciprofloxacin HCl 500 mg tablet 500 mg PO BID 04/06/23 04/06/23 History montelukast 10 mg tablet 10 mg PO DAILY 04/06/23 04/06/23 History Past Med/Surg History Medical History Osteoporosis COPD (chronic obstructive pulmonary disease) Chronic sinusitis Asthma Diverticulitis Degenerative arthritis of knee, bilateral Trochanteric bursitis, right hip Osteoarthritis GERD (gastroesophageal reflux disease) Hyperlipidemia Hypertension Surgical History H/O esophagogastroduodenoscopy (03/25/23) Esophagogastroduodenoscopy(Not Applicable) - Lili Alegre, DO Hx laparoscopic cholecystectomy (03/08/23) Laparoscopic Cholecystectomy - Lili Alegre DO Hx of colonoscopy History of open reduction and internal fixation (ORIF) procedure RIGHT HIP Hx of sinus surgery Family History Other Family history non-contributory Social History Smoking Status: Never smoker Tobacco Type: Cigarettes Second Hand Exposure: No; Do You Dip or Chew Tobacco: No; Hx Alcohol Use: No Hx Substance Use: No Preferred Language: Palauan Communication Ability: Effective Venereal Disease Control Head Required: No Beliefs That Will Affect Care: None Current Living Situation: Spouse Current Living Situation Comment: lives at home w Other Information That Helps Us Care for You: No Feels Safe at Home: Yes Safety Concerns: Feels Safe At This Time Assistive Devices: Cane, Nebulizer and Walker Review of Systems Review of Systems: All systems reviewed & are unremarkable except as noted in HPI & below Physical Exam Physical Exam: General- Not in distress Head- atraumatic Eyes- PERRL. ENT- oropharynx clear Neck- supple, no JVD. Lungs- clear to auscultation no wheezing or crackles. Heart- regular rhythm; no murmur, no gallop. Abdomen- normal bowel sounds, soft, nontender, no distension. Extremities- no pretibial edema, no erythema seen. Neuro- alert, oriented x 3; PERRL, no facial palsy; no dysarthria; moves extremities. Skin- warm & dry Results & Data Results & Data Vital Signs (Past 12 Hours) Vital Signs Temp Pulse Pulse Resp BP BP Pulse Ox 04/06/23 01:30 89 18 128/64 97 04/06/23 00:40 97 H 04/06/23 00:30 99 H 18 124/67 96 04/06/23 00:03 96 H 18 139/65 95 04/05/23 23:44 37.3 C 106 H 18 135/78 96 04/05/23 21:06 88 L 04/05/23 20:47 108 H 04/05/23 20:30 109 H 18 141/83 H 95 04/05/23 17:41 120 H 20 125/80 93 04/05/23 16:16 36.6 C 125 H 19 124/76 94 O2 Del Method O2 Flow Rate 04/06/23 01:30 Nasal Cannula 2 04/06/23 00:40 04/06/23 00:30 Nasal Cannula 2 04/06/23 00:03 Room Air 04/05/23 23:44 Nasal Cannula 2 04/05/23 21:06 Nasal Cannula 0 04/05/23 20:47 04/05/23 20:30 Room Air 04/05/23 17:41 Room Air 04/05/23 16:16 Room Air Diagnostic Findings Laboratory Results WBC 7.92 K/ul (4.8-10.8) 04/05/23 16:52 RBC 4.20 M/uL (4.20-5.40) 04/05/23 16:52 Hgb 11.9 g/dl (12.0-16.0) L 04/05/23 16:52 Hct 36.8 % (37.0-47.0) L 04/05/23 16:52 MCV 87.6 fL (80.0-100.0) 04/05/23 16:52 MCH 28.3 pg (25.0-34.0) 04/05/23 16:52 MCHC 32.3 g/dL (32.0-36.0) 04/05/23 16:52 RDW Std Deviation 47.2 fL (36.4-46.3) H 04/05/23 16:52 RDW Coeff of Edgard 14.8 % (11.5-14.5) H 04/05/23 16:52 Plt Count 396 K/uL (130-400) 04/05/23 16:52 MPV 9.9 fL (9.4-12.4) 04/05/23 16:52 Immature Gran % (Auto) 0.6 % 04/05/23 16:52 Neut % (Auto) 63.8 % 04/05/23 16:52 Lymph % (Auto) 25.4 % 04/05/23 16:52 [place] % (Auto) 8.1 % 04/05/23 16:52 Eos % (Auto) 1.5 % 04/05/23 16:52 Baso % (Auto) 0.6 % 04/05/23 16:52 Neut # (Auto) 5.05 K/uL (1.40-6.50) 04/05/23 16:52 Lymph # (Auto) 2.01 K/uL (1.20-3.40) 04/05/23 16:52 [place] # (Auto) 0.64 K/uL (0.11-0.59) H 04/05/23 16:52 Eos # (Auto) 0.12 K/uL (0.00-0.50) 04/05/23 16:52 Baso # (Auto) 0.05 K/uL (0.00-0.20) 04/05/23 16:52 Immature Gran # (Auto) 0.05 K/uL (0.01-0.20) 04/05/23 16:52 PT 12.3 Seconds (9.0-12.0) H 04/05/23 17:16 INR 1.1 (0.9-1.1) 04/05/23 17:16 Sodium 136 mmol/L (136-145) 04/05/23 16:52 Potassium 3.7 mmol/L (3.5-5.1) 04/05/23 16:52 Chloride 104 mmol/L (98-107) 04/05/23 16:52 Carbon Dioxide 19 mmol/L (21-32) L 04/05/23 16:52 Anion Gap 13 (3-11) H 04/05/23 16:52 BUN 7 mg/dl (6-23) 04/05/23 16:52 Creatinine 0.60 mg/dl (0.6-1.2) 04/05/23 16:52 Est Cr Clr Drug Dosing Not Reportable 04/05/23 16:52 Est GFR ( Amer) 102.6 ml/min 04/05/23 16:52 Est GFR (Non-Af Amer) 88.5 ml/min 04/05/23 16:52 BUN/Creatinine Ratio 11.7 (10-20) 04/05/23 16:52 Glucose 101 mg/dl (70-99(Fasting)) H 04/05/23 16:52 Calcium 8.0 mg/dl (8.6-10.3) L 04/05/23 16:52 Magnesium 1.0 mg/dl (1.7-2.4) L 04/05/23 16:52 Total Bilirubin 0.5 mg/dl (0.2-1.0) 04/05/23 16:52 AST 20 U/L (13-39) 04/05/23 16:52 ALT 5 U/L (7-52) L 04/05/23 16:52 Alkaline Phosphatase 86 U/L (34-104) 04/05/23 16:52 Troponin I High Sens 8.5 pg/ml (0-14) 04/05/23 17:17 Total Protein 7.2 gm/dl (6.0-8.3) 04/05/23 16:52 Albumin 3.7 gm/dl (3.4-5.0) 04/05/23 16:52 Globulin 3.5 gm/dl (2.5-4.0) 04/05/23 16:52 Albumin/Globulin Ratio 1.1 (0.9-2) 04/05/23 16:52 Adenovirus (PCR) Not Detected (NotDetected) 04/05/23 20:33 B. pertussis DNA (PCR) Not Detected (NotDetected) 04/05/23 20:33 B.parapertussis DNA PCR Not Detected (NotDetected) 04/05/23 20:33 C. pneumoniae DNA (PCR) Not Detected (NotDetected) 04/05/23 20:33 Coronavirus OC43 (PCR) Not Detected (NotDetected) 04/05/23 20:33 Coronavirus HKU1 (PCR) Not Detected (NotDetected) 04/05/23 20:33 Coronavirus 229E (PCR) Not Detected (NotDetected) 04/05/23 20:33 SARS-CoV-2 (PCR) Not Detected (NotDetected) 04/05/23 20:33 Coronavirus NL63 (PCR) Not Detected (NotDetected) 04/05/23 20:33 Human Metapneumovir PCR Not Detected (NotDetected) 04/05/23 20:33 Influenza Type A (PCR) Not Detected (NotDetected) 04/05/23 20:33 Influenza Type B (PCR) Not Detected (NotDetected) 04/05/23 20:33 M. pneumoniae (PCR) Not Detected (NotDetected) 04/05/23 20:33 Parainfluenza 1 (PCR) Not Detected (NotDetected) 04/05/23 20:33 Parainfluenza 2 (PCR) Not Detected (NotDetected) 04/05/23 20:33 Parainfluenza 3 (PCR) Not Detected (NotDetected) 04/05/23 20:33 Parainfluenza 4 (PCR) Not Detected (NotDetected) 04/05/23 20:33 RSV (PCR) Not Detected (NotDetected) 04/05/23 20:33 Entero/Rhino (PCR) Not Detected (NotDetected) 04/05/23 20:33 ECG Additional Comments: ECG. Sinus tachycardia 122. ST-T wave abnormality seen. Code Status & VTE Plan VTE Prophylaxis Plan VTE Prophylaxis will be ordered: Yes
[2023-04-06] MEDS ORDERED: MAGNESIUM SULFATE / D5W 1 GM/100 ML BAG IV ONE (02:00)
[2023-04-06] MEDS ORDERED: POLYETHYLENE (MIRALAX) 17 GM PACK PO PRN (04:13)
[2023-04-06] MEDS ORDERED: ACETAMINOPHEN 325 MG TAB PO PRN (04:13)
--- OUTSIDE RECORDS SUMMARY | 2023-04-06 04:42 | External Medical Summary | Summary of Care ---
Author Name Unknown Organization [facility] Address [address] [facility] [place] [address] Phone [phone] Care Team Providers Care Business Analyst Ecommerce Name Role Phone Manoj Weber DO Primary Care Provider [phone] Reason for Visit * Reason Comments Outpatient Testing Encounter Details Date Type Department Care Team (Late st Contact Info) Description 04/05/2023 12:10 PM EST Laboratory Laboratory [facility] [address] [place] [id number] Pod3, Specimen Drop Off [facility] [address] [place] [address] Nausea with vomiting Allergies Active Allergy Reactions Criticality Noted Date Comments Salicylates 03/03/2001 Asthmatic reaction (aspirin; no food allergies) documented as of this encounter (statuses as of 04/05/2023) Medications Medication Sig Dispensed Refills Start Date [...] 24 Hour (toPROL XL)Indications:Cheung ry atherosclerosis of [place] coronary artery,Patent foramen ovale,HTN, goal below 130/80 [...] as of this encounter (statuses as of 04/05/2023) Active Problems Problem Noted Date Diagnosed Date [...] 06/10/2011 ASPIRIN, CONTRAINDICATED- WHEEZING 03/10/2011 Atherosclerosis of [place] co ronary artery of [place] heart without angina pectoris 03/10/2011 Overview: Cardiac catheterization 02/12/11 30-40 % proximal LAD stenosis Diagonal 70 % Obtuse marginal 50% Systolic Fctn is normal Patent foramen ovale 01/01/2011 ADVANCE DIRECTIVE INFORMATION 07/07/2005 Overview: No, Advance Directive brochure given to patient at prior appointment. documented as of this encounter (statuses as of 04/05/2023) Resolved Problems Problem Noted Date Diagnosed Date Resolved Date Nocturnal hypoxia 04/01/2023 04/03/2023 Colonic diverticular abscess 03/13/2023 04/03/2023 Encounter for examination fo r normal comparison and control in clinical research program 09/04/2018 12/10/2019 Overview: DO NOT DELETE [employer] DETECT Study: Project # [id number], Sql Server Developer: Joe Pelletier, PhD. SUMMARY: Goal: Establish test [...] contact study staff at ; after hours Sql Server Developer via the [facility] multiple pressure riveter operator . Please contact study team before resolving/deleting from patients problem list. Study phone number: [phone]. Diagnosis changed due to Research Module. Go to Snapshot for study details. Encounter for examination fo r normal comparison and control in clinical research program 09/04/2018 01/07/2022 Overview: DO NOT DELETE - Fran [facility] DETECT Study: Project # [id number], Sql Server Developer: Kahlil Augustin, MS, MPH. SUMMARY: Goal: Establish [...] contact study staff at ; after hours Sql Server Developer via the [facility] multiple pressure riveter operator . - Please contact study team before resolving/deleting from patients problem list. Study phone number: [phone]. Diagnosis changed due to Research Module. Go to Snapshot for study details. 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 therapy [...] as of this encounter (statuses as of 04/05/2023) Immunizations Name Administration Dates Next Due COVID-19 mRNA, LNP-s, No Pre serve, 2-Dose Series ([employer]) 04/16/2021,07/21/2020,06/23/2020 Pneumococcal Conjugate Vacc, 13 Valent (Prevnar) [...] No 03/29/2023 documented as of this encounter Plan of Treatment Upcoming Encounters Date Type Department Care Team (Late st Contact Info) Description 04/07/2023 1:40 PM EST Office Visit Infectious Disease, [address] [address] Baudilio Oates, [address] [address] 04/11/2023 2:20 PM EST Office Visit Family Practice [address] [place] [address] [address] [place] [address] Manoj Weber, [address] [address] 05/04/2023 11:00 AM EST Imaging Radiology, [facility] [address] [place] [address] 05/26/2023 3:30 PM EST Office Visit General Surgery, [address] [address] Gigi Colby, [address] [address] 06/02/2023 1:00 PM EST Nurse Only Ancillary [address] [place] [address] [address] [place] [address] Berino, Nurse Annual Wellness Visit [address] [place] [address] 06/09/2023 11:30 AM EST Office Visit Allergy/Immunology [facility] [place] [address] [place] [address] Lydia Zafar PA-C [address] [place] [address] 06/14/2023 2:30 PM EST Hospital Encounter ENDO [facility], Endoscopy Room [facility] [address] [place] [phone] Judd Adams MD [address] [place] [address] 06/14/2023 2:30 PM EST - 06/14/2023 3:00 PM EST Surgery ENDO [facility], Endoscopy Room [facility] [address] [place] [phone] Judd Adams MD [address] [place] [address] COLONOSCOPY FLEXIBLE PROXIMAL DIAGNOSTIC 07/28/2023 10:00 AM EDT Office Visit Rheumatology [facility] [address] [facility] [place] [address] Devendra Shepherd CRNP [facility] [place] [address] Pending Results Name Type Priority Associated Diagnoses Date /Time COMPREHENSIVE METABOLIC PANEL Lab STAT Nausea with vomiting 04/05/2023 11:25 AM EST MAGNESIUM Lab STAT Nausea with vomiting 04/05/2023 11:25 AM EST Scheduled Procedures Name Priority Associated Diagnoses [...] D LEVEL ONCE IN A LIFETIME-USE SMARTSET# [id number] Completed 05/13/2021, 09/01/2012, 01/30/2009 Albumin/Creatinine Ratio Discontinued [...] Procedure Name Priority Date/Time Associated Diagnosis Comments DIFFERENTIAL, AUTOMATED STAT 04/05/2023 11:25 AM EST Nausea with vomiting CBC STAT 04/05/2023 11:25 AM EST Nausea with vomiting CBC STAT 04/05/2023 11:25 AM EST Nausea with vomiting documented in this encounter Results * DIFFERENTIAL, AUTOMATED (04/05/2023 11:25 AM EST) WBC 7.90 4.00 - 10.80 K/uL 04/05/2023 12:16 PM EST [facility] 56-02 Neutrophils % 63.2 40.0 - 75.0 % 04/05/2023 12:16 PM EST [facility] 56- Lymphocytes % 26.6 18.0 - 42.0 % 04/05/2023 12:16 PM EST [facility] 56- Monocytes % 8.6 1.0 - 11.0 % 04/05/2023 12:16 PM EST [facility] 56- Eosinophils % 1.5 0.0 - 6.0 % 04/05/2023 12:16 PM EST [facility] 56- Basophils % 0.1 0.0 - 2.0 % 04/05/2023 12:16 PM EST [facility] 56- Absolute Neutrophils 4.99 1.80 - 7.70 K/uL 04/05/2023 12:16 PM EST [facility] 56- Absolute Lymphocytes 2.10 1.00 - 4.80 K/ul 04/05/2023 12:16 PM [facility] 56- Absolute Monocytes 0.68 0.00 - 1.10 K/uL 04/05/2023 12:16 PM [facility] 56- Absolute Eosinophils 0.12 0.00 - 0.70 K/uL 04/05/2023 12:16 PM [facility] 56- Absolute Basophils 0.01 0.00 - 0.20 K/uL 04/05/2023 12:16 PM [facility] 56 Blood Venous blood specimen / Unknown Venipuncture / Unknown 04/05/2023 11:25 AM EST 04/05/2023 12:02 PM EST Manoj Weber DO LAB BLOOD ORDERABLES [facility] 56- [address] [place] [address] * (ABNORMAL) CBC (04/05/2023 11:25 AM EST) WBC 7.90 4.00 - 10.80 K/uL 04/05/2023 12:16 PM EST [facility] 56- RBC 3.74 3.85 - 5.15 M/uL 04/05/2023 12:16 PM [facility] 56- HGB 10.6(L) 12.0 - 15.3 g/dL 04/05/2023 12:16 PM EST [address] HCT 33.6(L) 36.0 - 45.2 % 04/05/2023 12:[address] MCV 89.8 81.5 - 97.5 fL 04/05/2023 12:16 PM EST [address] MCH 28.3 27.0 - 34.0 pg 04/05/2023 12:16 PM EST [address] MCHC 31.5 32.0 - 36.0 g/dL 04/05/2023 12:16 PM EST [address] RDW 14.9 11.5 - 15.5 % 04/05/2023 12:16 PM EST [address] PLT 372 140 - 400 K/uL 04/05/2023 12:[address] MPV 10.1 6.6 - 11.1 fL 04/05/2023 12:[address] Blood Venous blood specimen / Unknown Venipuncture / Unknown 04/05/2023 11:25 AM EST 04/05/2023 12:02 PM EST Manoj Weber DO LAB BLOOD ORDERABLES [place] [address] [place] [address] documented in this encounter Visit Diagnoses Diagnosis Nausea with vomiting Diverticulitis Diverticulitis of colon (without mention of [...] Advance Directives occurred with: Patient Care Teams Business Analyst Ecommerce Relationship Specialty Start Date End Date Manoj Weber DO [address] [facility] [place] [address] PCP - General 12/23/05 documented as of this encounter
--- OUTSIDE RECORDS SUMMARY | 2023-04-06 04:42 | External Medical Summary | Summary of Care ---
Author Name Unknown Organization [facility] Address [address] [facility] [place] [address] Phone [phone] Care Team Providers Care Accounting Coordinator Name Role Phone Manoj Weber DO Primary Care Provider [phone] Reason for Visit * Reason Comments Outpatient Testing Encounter Details Date Type Department Care Team (Late st Contact Info) Description 04/05/2023 12:10 PM EST Laboratory Laboratory [facility] [address] [place] [phone] Pod3, Specimen Drop Off [facility] [address] [place] [address] Nausea with vomiting Allergies Active Allergy Reactions [...] 24 Hour (toPROL XL)Indications:Cheung ry atherosclerosis of [place] coronary artery,Patent foramen ovale,HTN, goal below 130/80 [...] 06/10/2011 ASPIRIN, CONTRAINDICATED- WHEEZING 03/10/2011 Atherosclerosis of [place] co ronary artery of [place] heart without angina pectoris 03/10/2011 Overview: Cardiac [...] 09/04/2018 12/10/2019 Overview: DO NOT DELETE [employer] DETECT Study: Project # [id number], Tester/Lift Trucker: Joe Pelletier, PhD. SUMMARY: Goal: Establish test [...] contact study staff at ; after hours Tester/Lift Trucker via the [facility] joint cleaning machine operator . Please contact study team before resolving/deleting from patients problem list. Study phone number: [phone]. Diagnosis changed due to Research Module. Go to Snapshot for study details. Encounter for examination fo r normal comparison and control in clinical research program 09/04/2018 01/07/2022 Overview: DO NOT DELETE - [facility] DETECT Study: Project # [id number], Tester/Lift Trucker: Kahlil Augustin, MS, MPH. SUMMARY: Goal: Establish [...] contact study staff at ; after hours Tester/Lift Trucker via the [facility] joint cleaning machine operator . - Please contact study team before resolving/deleting from patients problem list. Study phone number: [phone]. Diagnosis changed due to Research Module. Go to Snapshot for study details. 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 11/15/2018 Lung collapse 08/13/2011 08/09/2018 Allergic rhinitis 06/24/2011 08/11/2018 GERD (gastroesophageal reflux disease) 06/24/2011 02/10/2018 HTN, goal below 130/80 03/19/201102/21 TIA (transient ischemic attack) 01/01/2011 02/10/2018 sample maker original current use of ant icoagulant therapy 01/01/2011 [...] mRNA, LNP-s, No Pre serve, 2-Dose Series ([email or web address]) 04/16/2021,07/21/2020,06/23/2020 Pneumococcal Conjugate Vacc, 13 Valent (Prevnar) [...] 1:40 PM EST Office Visit Infectious Disease, [address] [address] Baudilio Oates, [address] [address] 04/11/2023 2:20 PM EST Office Visit Family Practice [address] [place] [address] [address] [place] [address] Manoj Weber, [address] [address] 05/04/2023 11:00 AM EST Imaging Radiology, [facility] [address] [place] [address] 05/26/2023 3:30 PM EST Office Visit General Surgery, [address] [address] Gigi Colby, [address] [address] 06/02/2023 1:00 PM EST Nurse Only Ancillary [address] [place] [address] [address] [place] [address] [place], Nurse Annual Wellness Visit [address] [place] [address] 06/09/2023 11:30 AM EST Office [facility] [place] [address] [place] [address] Lydia Zafar PA-C [address] [place] [address] 06/14/2023 2:30 PM EST Hospital Encounter ENDO [facility], Endoscopy Room [facility] [address] [facility] [place] [address] Judd Adams MD [address] [place] [address] 06/14/2023 2:30 PM EST - 06/14/2023 3:00 PM EST Surgery ENDO [facility], Endoscopy Room [facility] [address] [place] [phone] Judd Adams MD [address] [place] [address] COLONOSCOPY FLEXIBLE PROXIMAL DIAGNOSTIC 07/28/2023 10:00 AM EDT Office Visit Rheumatology [facility] [address] [facility] [place] [address] Devendra Shepherd CRNP [address] [place] [address] [place] [address] Scheduled Procedures Name Priority Associated Diagnoses Date/Ti [...] D LEVEL ONCE IN A LIFETIME-USE SMARTSET# 38083 Completed 05/13/2021, 09/01/2012, 01/30/2009 Albumin/Creatinine Ratio Discontinued [...] 04/05/2023 11:25 AM EST Nausea with vomiting COMPREHENSIVE METABOLIC PANEL STAT 04/05/2023 11:25 AM EST Nausea with vomiting CBC STAT 04/05/2023 11:25 AM EST Nausea with vomiting CBC STAT 04/05/2023 11:25 AM EST Nausea with vomiting MAGNESIUM STAT 04/05/2023 11:25 AM EST Nausea with vomiting documented in this encounter Results * DIFFERENTIAL, AUTOMATED (04/05/2023 11:25 AM EST) WBC 7.90 4.00 - 10.80 K/uL 04/05/2023 12:16 PM EST [facility] 56-02 Neutrophils % 63.2 40.0 - 75.0 % 04/05/2023 12:16 PM EST [facility] 56-02 Lymphocytes % 26.6 18.0 - 42.0 % 04/05/2023 12:16 PM EST [facility] 56-02 Monocytes % 8.6 1.0 - 11.0 % 04/05/2023 12:16 PM EST [facility] 56-02 Eosinophils % 1.5 0.0 - 6.0 % 04/05/2023 12:16 PM EST [facility] 56-02 Basophils % 0.1 0.0 - 2.0 % 04/05/2023 12:16 PM EST [facility] 56-02 Absolute Neutrophils 4.99 1.80 - 7.70 K/uL 04/05/2023 12:16 PM EST [facility] 56-02 Absolute Lymphocytes 2.10 1.00 - 4.80 K/ul 04/05/2023 12:16 PM EST [facility] 56-02 Absolute Monocytes 0.68 0.00 - 1.10 K/uL 04/05/2023 12:16 PM [facility] 56-02 Absolute Eosinophils 0.12 0.00 - 0.70 K/uL 04/05/2023 12:16 PM [facility] 56-02 Absolute Basophils 0.01 0.00 - 0.20 K/uL 04/05/2023 12:16 PM [facility] 56-02 Blood Venous blood specimen / Unknown Venipuncture / Unknown 04/05/2023 11:25 AM EST 04/05/2023 12:02 PM EST Manoj Weber DO LAB BLOOD ORDERABLES [facility] [address] [place] [address] * (ABNORMAL) CBC (04/05/2023 11:25 AM EST) WBC 7.90 4.00 - 10.80 K/uL 04/05/2023 12:16 PM EST [facility] 56-02 RBC 3.74 3.85 - 5.15 M/uL 04/05/2023 12:16 PM [facility] 56 HGB 10.6(L) 12.0 - 15.3 g/dL 04/05/2023 12:16 PM [facility] 56 HCT 33.6(L) 36.0 - 45.2 % 04/05/2023 12:16 PM [facility] 56 MCV 89.8 81.5 - 97.5 fL 04/05/2023 12:[address] MCH 28.3 27.0 - 34.0 pg 04/05/2023 12:16 PM [facility] 56 MCHC 31.5 32.0 - 36.0 g/dL 04/05/2023 12:16 PM [facility] 56 RDW 14.9 11.5 - 15.5 % 04/05/2023 12:16 PM [facility] 56 PLT 372 140 - 400 K/uL 04/05/2023 12:[address] MPV 10.1 6.6 - 11.1 fL 04/05/2023 12:16 PM [facility] 56 Blood Venous blood specimen / Unknown Venipuncture / Unknown 04/05/2023 11:25 AM EST 04/05/2023 12:02 PM EST Manoj Weber DO LAB BLOOD ORDERABLES [facility] [address] [place] [address] * (ABNORMAL) MAGNESIUM (04/05/2023 11:25 AM EST) Magnesium 1.0(L) 1.5 - 2.6 mg/dL 04/05/2023 1:22 PM [facility] Blood Venous blood specimen / Unknown Venipuncture / Unknown 04/05/2023 11:25 AM EST 04/05/2023 12:02 PM EST Manoj Weber DO LAB BLOOD ORDERABLES [facility] 56- [address] [place] [address] * (ABNORMAL) COMPREHENSIVE METABOLIC PANEL (04/05/2023 11:25 AM EST) BUN 5(L) 6 - 20 mg/dL 04/05/2023 1:[address] Creatinine 0.6 0.5 - 1.0 mg/dL 04/05/2023 1:[address] Estimated Glomerular Filtration Rate >90 >=60 mL/min 04/05/2023 1:[address] Comment:eGFR is calculated b ased on the CKD-EPI 2020 equation Sodium 137 135 - 146 mmol/L 04/05/2023 1:[address] Potassium 3.9 3.5 - 5.1 mmol/L 04/05/2023 1:[address] Chloride 101 98 - 107 mmol/L 04/05/2023 1:[address] CO2 25 22 - 32 mmol/L 04/05/2023 1:[address] Anion Gap 11 7 - 15 mmol/L 04/05/2023 1:[address] Glucose 121(H) 70 - 120 mg/dL 04/05/2023 1:22 PM [facility] 56 Albumin 3.4(L) 3.8 - 5.0 g/dL 04/05/2023 1:22 PM [facility] 56 AST 23 10 - 35 U/L 04/05/2023 1:[address] Alkaline Phosphatase 92 35 - 130 U/L 04/05/2023 1:22 PM [facility] 56 Bilirubin, Total 0.3 <=1.2 mg/dL 04/05/2023 1:22 PM [facility] 56 Calcium 7.9(L) 8.4 - 10.2 mg/dL 04/05/2023 1:22 PM [facility] 56 Protein 6.1 6.0 - 8.3 g/dL 04/05/2023 1:22 PM [facility] 56 ALT 8(L) 10 - 35 U/L 04/05/2023 1:22 PM EST [facility] 56-02 Blood Venous blood specimen / Unknown Venipuncture / Unknown 04/05/2023 11:25 AM EST 04/05/2023 12:02 PM EST Manoj Weber DO LAB BLOOD ORDERABLES [facility] 56-02 [address] [place] [address] documented in this encounter Visit Diagnoses Diagnosis [...] Advance Directives occurred with: Patient Care Teams Accounting Coordinator Relationship Specialty Start Date End Date Manoj Weber DO [address] [place] [address] PCP - General 12/23/05 documented as of this encounter
--- OUTSIDE RECORDS SUMMARY | 2023-04-06 04:42 | External Medical Summary | Summary of Care ---
Author Name Unknown Organization [facility] Address [address] [facility] [place] [address] Phone [phone] Care Team Providers Care Enamel Finisher Name Role Phone Manoj Weber DO Primary Care Provider [phone] Encounter Details Date Type Department Care Team (Late st Contact Info) Description 04/05/2023 Telephone Family Practice [address] [facility] [place] [address] [place] [address] Manoj Weber DO [address] [place] [address] Allergies Active Allergy Reactions Criticality Noted Date [...] 24 Hour (toPROL XL)Indications:Cheung ry atherosclerosis of [place] coronary artery,Patent foramen ovale,HTN, goal below 130/80 [...] 06/10/2011 ASPIRIN, CONTRAINDICATED- WHEEZING 03/10/2011 Atherosclerosis of [place] co ronary artery of [place] heart without angina pectoris 03/10/2011 Overview: Cardiac [...] program 09/04/2018 12/10/2019 Overview: DO NOT DELETE [email or web address] DETECT Study: Project # [id number], Top Cutter: Joe Pelletier, PhD. SUMMARY: Goal: Establish test [...] contact study staff at ; after hours Top Cutter via the [facility] hardboard press operator . Please contact study team before resolving/deleting from patients problem list. Study phone number: [phone]. Diagnosis changed due to Research Module. Go to Snapshot for study details. Encounter for examination fo r normal comparison and control in clinical research program 09/04/2018 01/07/2022 Overview: DO NOT DELETE - [email or web address] DETECT Study: Project # [id number], Top Cutter: Kahlil Augustin, MS, MPH. SUMMARY: Goal: Establish [...] contact study staff at ; after hours Top Cutter via the [facility] hardboard press operator . - Please contact study team before resolving/deleting from patients problem list. Study phone number: [phone]. Diagnosis changed due to Research Module. Go to Snapshot for study details. 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) 04/16/2021,07/21/2020,06/23/2020 Pneumococcal Conjugate Vacc, 13 Valent (Prevnar) [...] Telephone Encounter - Manoj Weber DO - 04/05/2023 4:48 PM EST Called report to [facility] ED * Telephone Encounter - Tatiana Coyle LPN - 04/05/2023 3:12 PM EST Patient is aware and will comply. * Telephone Encounter - Tatiana Coyle LPN - 04/05/2023 3:11 PM EST ----- Message from Manoj Weber DO sent at 04/05/2023 2:00 PM EST ----- Magnesium is very low May be from nausea and vomiting as well as no oral intake Patient will need to go to ED for volume depletion and low magnesium Will need repeat CT abdomen and pelvis * Telephone Encounter - Dawna Greenberg OSA - 04/05/2023 3:06 PM EST Ro [facility], returning ana call. States the contact numbers she has for he patient are: [phone] home [phone] cell [phone] - NNAMDI Servin states she will be driving, you can reach her in about 30 mins via her at [phone] * Telephone Encounter - Tatiana Coyle LPN - 04/05/2023 2:47 PM EST Called Marie at [facility], left message. * Telephone Encounter - Tatiana Coyle LPN - 04/05/2023 2:46 PM EST Called, left message for patient to return call. Thank you * Telephone Encounter - Tatiana Coyle LPN - 04/05/2023 2:12 PM EST Called both numbers listed on demographics. * Telephone Encounter - Tatiana Coyle LPN - 04/05/2023 2:10 PM EST ----- Message from Manoj Weber DO sent at 04/05/2023 2:00 PM EST ----- Magnesium is very low May be from nausea and vomiting as well as no oral intake Patient will need to go to ED for volume depletion and low magnesium Will need repeat CT abdomen and pelvis * Telephone Encounter - Manoj Weber DO - 04/05/2023 11:13 AM EST Check CMP and CBC with diff stat * Telephone Encounter - Tatiana Coyle LPN - 04/05/2023 10:45 AM EST [facility] home health Marie Pulse rate is 108 bp is 132/84 Pulse ox 92% Denies chest pain or SOB with exertion Temp 98.2 Vomiting, ATB not staying down. Nurse found zofran 4 mg (has 6 tablets left) Weight is 140.0 lb Did keep toast down this am. But other than that not eating. Throws up only with taking medication. Is drinking pedialyte. Has 9 days of atb. Will do lab now Phenergan in hospital Marie at home health [phone] [facility] [phone] documented in this encounter Plan of Treatment Upcoming Encounters Date Type Department Care Team (Late st Contact Info) Description 04/07/2023 1:40 PM EST Office Visit Infectious Disease, [address] [address] Baudliio Oates, [place] [address] 04/11/2023 2:20 PM EST Office Visit Family Practice [address] [place] [phone] Manoj Weber, [address] [address] 05/04/2023 11:00 AM EST Imaging Radiology, [address] [id number] [place] [address] 05/26/2023 3:30 PM EST Office Visit General Surgery, [address] [address] Gigi Colby [place] [address] 06/02/2023 1:00 PM EST Nurse Only Ancillary [address] [place] [address] College, Nurse Annual Wellness Visit [address] [place] [address] 06/09/2023 11:30 AM EST Office Visit Allergy/Immunology [facility]all[facility] [place] [address] [place], [place] [address] Lydia Zafar PA-C [address] [place] [address] 06/14/2023 2:30 PM EST Hospital Encounter ENDO [facility], Endoscopy Room OSS [address] [place] [phone] Judd Adams MD [address] [place] [address] 06/14/2023 2:30 PM EST - 06/14/2023 3:00 PM EST Surgery ENDO [facility], Endoscopy Room [facility] [address] [place] [address] Judd Adams MD [address] [place] [address] COLONOSCOPY FLEXIBLE PROXIMAL DIAGNOSTIC 07/28/2023 10:00 AM EDT Office Visit Rheumatology [facility] [address] [facility] [place], [place] [address] Devendra Shepherd CRNP [address] [facility] [place], [place] [address] Scheduled Procedures Name Priority Associated Diagnoses Date/Ti [...] D LEVEL ONCE IN A LIFETIME-USE SMARTSET# 13702 Completed 05/13/2021, 09/01/2012, 01/30/2009 Albumin/Creatinine Ratio Discontinued [...] Not on filedocumented as of this encounter Results * (ABNORMAL) MAGNESIUM (04/05/2023 11:25 AM EST) Magnesium 1.0(L) 1.5 - 2.6 mg/dL 04/05/2023 1:22 PM EST [facility] 56-02 Blood Venous blood specimen / Unknown Venipuncture / Unknown 04/05/2023 11:25 AM EST 04/05/2023 12:02 PM EST Manoj Weber DO LAB BLOOD ORDERABLES [facility] 56-[address] [place] [address] * (ABNORMAL) COMPREHENSIVE METABOLIC PANEL (04/05/2023 11:25 AM EST) BUN 5(L) 6 - 20 mg/dL 04/05/2023 1:22 PM EST [facility] 56-02 Creatinine 0.6 0.5 - 1.0 mg/dL 04/05/2023 1:22 PM [facility] 56 Estimated Glomerular Filtration Rate >90 >=60 mL/min 04/05/2023 1:22 PM [facility] 56- Comment:eGFR is calculated b ased on the CKD-EPI 2020 equation Sodium 137 135 - 146 mmol/L 04/05/2023 1:22 PM [facility] 56 Potassium 3.9 3.5 - 5.1 mmol/L 04/05/2023 1:22 PM [facility] 56 Chloride 101 98 - 107 mmol/L 04/05/2023 1:22 PM [facility] 56 CO2 25 22 - 32 mmol/L 04/05/2023 1:22 PM [facility] 56 Anion Gap 11 7 - 15 mmol/L 04/05/2023 1:22 PM [facility] 56 Glucose 121(H) 70 - 120 mg/dL 04/05/2023 1:22 PM [facility] 56 Albumin 3.4(L) 3.8 - 5.0 g/dL 04/05/2023 1:22 PM [facility] 56 AST 23 10 - 35 U/L 04/05/2023 1:22 PM [facility] 56 Alkaline Phosphatase 92 35 - 130 U/L 04/05/2023 1:22 PM [facility] 56 Bilirubin, Total 0.3 <=1.2 mg/dL 04/05/2023 1:22 PM [facility] 56 Calcium 7.9(L) 8.4 - 10.2 mg/dL 04/05/2023 1:22 PM [facility] 56 Protein 6.1 6.0 - 8.3 g/dL 04/05/2023 1:22 PM [facility] 56 ALT 8(L) 10 - 35 U/L 04/05/2023 1:22 PM [facility] 56 Blood Venous blood specimen / Unknown Venipuncture / Unknown 04/05/2023 11:25 AM EST 04/05/2023 12:02 PM EST Manoj Weber DO LAB BLOOD ORDERABLES [facility] 56-[address] [place] [address] documented in this encounter Visit Diagnoses Diagnosis Nausea with vomiting- Primary Diverticulitis Diverticulitis of colon (without mention [...] Advance Directives occurred with: Patient Care Teams Enamel Finisher Relationship Specialty Start Date End Date Manoj Weber [facility] [address] [facility] [address] PCP - General 12/23/05 documented as of this encounter
--- OUTSIDE RECORDS SUMMARY | 2023-04-06 04:42 | External Medical Summary | Summary of Care ---
Author Name Unknown Organization [facility] Address [address] [facility] [place] [address] Phone [phone] Care Team Providers Care Insurance Account Executive Name Role Phone Manoj Weber DO Primary Care Provider [phone] Reason for Visit * Reason Comments Outpatient Testing Encounter Details Date Type Department Care Team (Late st Contact Info) Description 04/05/2023 12:10 PM EST Laboratory Laboratory [facility] [address] [place] [id number] Pod3, Specimen Drop Off [facility] [address] [place] [address] Nausea with vomiting Allergies Active Allergy Reactions [...] 24 Hour (toPROL XL)Indications:Cheung ry atherosclerosis of [place] coronary artery,Patent foramen ovale,HTN, goal below 130/80 [...] CONTRAINDICATED- WHEEZING 03/10/2011 Atherosclerosis of [place] co ronary artery of [place] heart without angina pectoris 03/10/2011 Overview: Cardiac [...] 09/04/2018 12/10/2019 Overview: DO NOT DELETE [employer] DETECT Study: Project # [id number], Executive Director Contract Shop: Joe Pelletier, PhD. SUMMARY: Goal: Establish test [...] contact study staff at ; after hours Executive Director Contract Shop via the [facility] tobacco packing machine operator . Please contact study team before resolving/deleting from patients problem list. Study phone number: [phone]. Diagnosis changed due to Research Module. Go to Snapshot for study details. Encounter for examination fo r normal comparison and control in clinical research program 09/04/2018 01/07/2022 Overview: DO NOT DELETE - Fran [facility] DETECT Study: Project # [id number], Executive Director Contract Shop: Kahlil Augustin, MS, MPH. SUMMARY: Goal: Establish [...] contact study staff at ; after hours Executive Director Contract Shop via the [facility] tobacco packing machine operator . - Please contact study team before resolving/deleting from patients problem list. Study phone number: [phone]. Diagnosis changed due to Research Module. Go to Snapshot for study details. 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 11/15/2018 Lung collapse 08/13/2011 08/09/2018 Allergic rhinitis 06/24/2011 08/11/2018 GERD (gastroesophageal reflux disease) 06/24/2011 02/10/2018 HTN, goal below 130/80 03/19/201102/21 TIA (transient ischemic attack) 01/01/2011 02/10/2018 terminal carman current use of ant icoagulant therapy 01/01/2011 [...] mRNA, LNP-s, No Pre serve, 2-Dose Series (CareParent) 04/16/2021,07/21/2020,06/23/2020 Pneumococcal Conjugate Vacc, 13 Valent (Prevnar) [...] 1:40 PM EST Office Visit Infectious Disease, [address] [address] Baudilio Oates, [address] [address] 04/11/2023 2:20 PM EST Office Visit Family Practice [address] [place] [phone] Manoj Weber, [address] [address] 05/04/2023 11:00 AM EST Imaging Radiology, [id number] [place] [address] 05/26/2023 3:30 PM EST Office Visit General Surgery, [address] [address] Gigi Colby, [address] [address] 06/02/2023 1:00 PM EST Nurse Only Ancillary [address] [place] [address] [place], Nurse Annual Wellness Visit [address] [place], [place] [address] 06/09/2023 11:30 AM EST Office Visit Allergy/Immunology [place] [address] [place] [address] [place] [address] Lydia Zafar PA-C [address] [place] [address] 06/14/2023 2:30 PM EST Hospital Encounter ENDO [facility], Endoscopy Room [facility] [address] [facility] [place] [phone] Judd Adams MD [address] [place] [address] 06/14/2023 2:30 PM EST - 06/14/2023 3:00 PM EST Surgery ENDO [facility], Endoscopy Room [facility] [address] [place] [phone] Judd Adams MD [address] [place] [address] COLONOSCOPY FLEXIBLE PROXIMAL DIAGNOSTIC 07/28/2023 10:00 AM EDT Office Visit Rheumatology [facility] [address], [place] [address] Devendra Shepherd CRNP [address] [place] [address] Pending Results Name Type Priority Associated Diagnoses [...] D LEVEL ONCE IN A LIFETIME-USE SMARTSET# 24525 Completed 05/13/2021, 09/01/2012, 01/30/2009 Albumin/Creatinine Ratio Discontinued [...] 10.80 K/uL 04/05/2023 12:16 PM EST [facility] 56-02 Neutrophils % 63.2 40.0 - 75.0 % 04/05/2023 12:16 PM EST [facility] 56- Lymphocytes % 26.6 18.0 - 42.0 % 04/05/2023 12:16 PM EST [facility] 56- Monocytes % 8.6 1.0 - 11.0 % 04/05/2023 12:16 PM EST [facility] 56- Eosinophils % 1.5 0.0 - 6.0 % 04/05/2023 12:16 PM EST [facility] 56- Basophils % 0.1 0.0 - 2.0 % 04/05/2023 12:16 PM EST [facility] 56- Absolute Neutrophils 4.99 1.80 - 7.70 K/uL 04/05/2023 12:16 PM [facility] 56- Absolute Lymphocytes 2.10 1.00 - 4.80 K/ul 04/05/2023 12:16 PM [facility] 56- Absolute Monocytes 0.68 0.00 - 1.10 K/uL 04/05/2023 12:16 PM [facility] 56- Absolute Eosinophils 0.12 0.00 - 0.70 K/uL 04/05/2023 12:16 PM [facility] 56- Absolute Basophils 0.01 0.00 - 0.20 K/uL 04/05/2023 12:16 PM [facility] 56 Blood Venous blood specimen / Unknown Venipuncture / Unknown 04/05/2023 11:25 AM EST 04/05/2023 12:02 PM EST Manoj Weber DO LAB BLOOD ORDERABLES [facility] 56- [address] [place] [address] * (ABNORMAL) CBC (04/05/2023 11:25 AM EST) WBC 7.90 4.00 - 10.80 K/uL 04/05/2023 12:16 PM [facility] 56- RBC 3.74 3.85 - 5.15 M/uL 04/05/2023 12:16 PM [facility] 56- HGB 10.6(L) 12.0 - 15.3 g/dL 04/05/2023 12:16 PM [facility] 56 HCT 33.6(L) 36.0 - 45.2 % 04/05/2023 12:[address] MCV 89.8 81.5 - 97.5 fL 04/05/2023 12:16 PM EST [address] MCH 28.3 27.0 - 34.0 pg 04/05/2023 12:[address] MCHC 31.5 32.0 - 36.0 g/dL 04/05/2023 12:[address] RDW 14.9 11.5 - 15.5 % 04/05/2023 12:[address] PLT 372 140 - 400 K/uL 04/05/2023 12:[address] MPV 10.1 6.6 - 11.1 fL 04/05/2023 12:[address] Blood Venous blood specimen / Unknown Venipuncture / Unknown 04/05/2023 11:25 AM EST 04/05/2023 12:02 PM EST Manoj Weber DO LAB BLOOD ORDERABLES [place] [address] [place] [address] documented in this encounter Visit Diagnoses Diagnosis [...] Directives occurred with: Patient Care Teams Insurance Account Executive Relationship Specialty Start Date End Date Manoj Weber DO [address] [place] [address] PCP - General 12/23/05 documented as of this encounter
[2023-04-06] MEDS: D5W AND 1/2NSS 1,000 ML IV SCH ×2 (04:44→15:00)
--- NOTE | 2023-04-06 06:44 | XRay Report ---
XR chest 1V portable CLINICAL HISTORY: picc eval COMPARISON STUDY: Chest radiograph March 11, 2023. FINDINGS: No PICC is identified. There is a possible IV within the right antecubital fossa. No pneumo thorax is present. There is a small left pleural effusion. Cardiomegaly is unchanged. No evidence for pulmonary edema. There is no consolidation to suggest pneumonia. IMPRESSION: 1. No PICC identified. Possible IV within the right antecubital fossa. 2. Small left pleural effusion. 3. Cardiomegaly. No radiographic evidence for pulmonary edema. ACT 112: Negative or not required by law. Electronically signed by: Gene Hastings M.D. 04/06/2023 6:42 AM
[2023-04-06 07:13] LABS: Basophils # (auto) 0.05 K/uL (0.00-0.20); Basophils % (auto) 0.8 %; Eosinophils # (auto) 0.08 K/uL (0.00-0.50); Eosinophils % (auto) 1.3 %; Hematocrit (blood only) 29.9 % (37.0-47.0); Hemoglobin 9.5 g/dl (12.0-16.0); Immature Granulocytes # (auto) 0.03 K/uL (0.01-0.20); Immature Granulocytes % (auto) 0.5 %; Lymphocytes # (auto) 1.56 K/uL (1.20-3.40); Lymphocytes % (auto) 24.6 %; Mean Corpuscular Hemoglobin 28.1 pg (25.0-34.0); Mean Corpuscular Hgb Conc 31.8 g/dL (32.0-36.0); Mean Corpuscular Volume 88.5 fL (80.0-100.0); Mean Platelet Volume 9.6 fL (9.4-12.4); Monocytes # (auto) 0.57 K/uL (0.11-0.59); Neutrophils # (auto) 4.04 K/uL (1.40-6.50); Neutrophils % (auto) 63.8 %; Platelet Count 311 K/uL (130-400); RDW Coefficient of Variation 14.6 % (11.5-14.5); Red Blood Count 3.38 M/uL (4.20-5.40); White Blood Count 6.33 K/ul (4.8-10.8)
[2023-04-06 07:34] LABS: BUN Creatinine Ratio 8.5 (10-20); Creatinine Clr Calc Pharmacy 91.7 ml/min; Est GFR (African American) 111.2 ml/min; Est GFR (Non-African American) 95.9 ml/min; Magnesium 2.2 mg/dl (1.7-2.4); Potassium 3.2 mmol/L (3.5-5.1)
[2023-04-06] MEDS: FLUTICASONE FUROATE 200MCG 14 PUFFS/INHALER INH SCH (08:36)
[2023-04-06] MEDS: GLUCOSAMINE SULFATE 500 MG CAP PO SCH (08:37)
[2023-04-06] MEDS: MONTELUKAST SODIUM 10 MG TABLET PO SCH (08:37)
[2023-04-06] MEDS: PANTOprazole 40 MG TAB PO SCH ×2 (08:37→20:35)
[2023-04-06] MEDS: ASCORBIC ACID 500 MG TAB PO SCH (08:37)
[2023-04-06] MEDS: MULTIVITAMIN TAB PO SCH (08:37)
[2023-04-06] MEDS: METOPROLOL SUCC 25MG EXT REL TAB PO SCH (08:37)
[2023-04-06] MEDS: AMOXICILLIN/CLAVULANATE 875 MG TAB PO SCH ×2 (08:37→20:36)
[2023-04-06] MEDS: CHOLECALCIFEROL 1,000 UNITS 25 MCG TAB PO SCH (08:37)
[2023-04-06] MEDS: CIPROFLOXACIN 500 MG TAB PO SCH ×2 (08:37→20:36)
[2023-04-06] MEDS: ADVANCED PROBIOTIC 1250 MG CAPSULE PO SCH (08:37)
[2023-04-06] MEDS: ENOXAPARIN INJ 40 MG/0.4 ML SYR SQ SCH (08:38)
[2023-04-06] MEDS: FLUTICASONE PROPIONATE NA SPR 16 GM BTL PRN (08:38)
[2023-04-06] MEDS: UMECLIDINIUM/VILANTEROL 62.5/25MCG 7 PUFFS/INHALER INH SCH (08:38)
[2023-04-06] MEDS ORDERED: ALBUMIN 25% 25 GM/100 ML VIAL IV ONE (08:42)
[2023-04-06] MEDS ORDERED: STAT IV/IM STA (08:44)
[2023-04-06] MEDS ORDERED: POTASSIUM CHLORIDE CRTAB 20 MEQ TABCR PO STA (08:44)
[2023-04-06] MEDS ORDERED: CALCIUM GLUCONATE 10% 1,000 MG in SODIUM CHLOR 0.9% MINI-B 50 ML IV ONE (08:44)
[2023-04-06] MEDS ORDERED: CALCIUM GLUCONATE 1,000 MG/60 ML BAG IV STA (08:47)
--- NOTE | 2023-04-06 09:44 | XRay Report ---
KUB CLINICAL HISTORY: Nausea. COMPARISON STUDY: CT of the abdomen and pelvis March 28, 2023. FINDINGS: Linear bibasilar densities favor atelectasis or scarring. There are cholecystectomy clips a nd a right femoral internal fixation. The bowel gas pattern is normal. There is minimal stool. No uri nary calculi are identified. IMPRESSION: No evidence for a bowel obstruction. ACT 112: Negative or not required by law. Electronically signed by: Gene Hastings M.D. 04/06/2023 9:42 AM
--- NOTE | 2023-04-06 11:31 | Nephrology Consultation ---
Date of Consultation April 06, 2023 Assessment & Plan (1) Electrolyte disturbance: mild hypokalemia, mild hypocalcemia. -repeat RAMÓN labs for AM -daily bmp, mag -continue moderate dose D3 (25 OH D levels reasonably high despite low Ca) -no further IV calcium or mag needed today -given rhonchi will stop IVF a bit early /short of 2 planned L History of Present Illness Reason for Consultation: hypocalcemia Requesting Physician: Dr Jacobs Attending Physician: Lauro Jacobs MD History of Present Illness 77-year-old female whom I am asked to evaluate for hypocalcemia was admitted overnight for evaluation of generalized weakness in the setting of chronic diverticular abscess after presenting with serum magnesium of 1.0 and ionized calcium 0.9. Past medical history includes hypertension, osteoarthritis, COPD, hyperlipidemia, GERD, osteoporosis on Prolia, diverticulitis. Also w/ chronic sinus issues Diverticular abscess first diagnosed February 10 when she presented here with abdominal pain. She has had poor p.o., chronic nausea and vomiting, abdominal pain, diarrhea to varying degrees ever since. At her initial [facility] admission in early February, her IV antibiotics were transitioned to p.o. and she was discharged home. Then in late February she presented to PCP with worsening abdominal pain and was found to have sigmoid diverticulitis with an abscess abutting the left distal sigmoid colon and measuring 3.4 x 3.2 x 2 cm. There was also nonspecific gallbladder wall thickening and she underwent cholecystectomy on March 08. On March 12 she had worsening nausea vomiting and abdominal pain with imaging showing diverticular abscess size increased to 4.7 x 2.6 cm. Referred to [place] for IR drainage; however neither IR nor general surgery in [place] felt that she was a candidate for intervention. She was started on ertapenem through a PICC for at least 21 days with stop date to be determined; this was changed ultimately to Cipro and Flagyl due to uncontrolled nausea which has improved. During her last admission here March 22 to the , EGD showed diffuse gastric polyposis and a small hiatal hernia with a small superficial ulcer and some necrotic tissue. colonoscopy is planned in mid April along with follow-up with general surgery for possible future elective surgery was also recommended. Her last prolia dose was 01/26. At last admission, she was started on calcitriol, D3, and oral calcium as well as oral magnesium. She remains on D3 1000 units daily, but other medications were stopped prior to yesterday's admission. Currently the patient is on D5 half-normal saline at 100 mL hourly with 2 L planned. Also on twice daily Augmentin, as Cipro, and not currently on Flagyl. She has received 3 g IV magnesium. Has not had any calcium or potassium at this time so far today no n/v; also frequent loose bmp >> 2 such today. earlier c/o abd pain mild BLQ but denies to me. no sob, no cough; no orthopnea. no edema. no new/worrisome voiding c/o. c/o fatigue and generalized weakness, wt loss. no paresthesias or fasciculations. Allergies Allergy/AdvReac Type Severity Reaction Status Date / Time amoxicillin Allergy Severe Itching Unverified 04/05/23 20:34 aspirin Allergy Mild wheeze Verified 04/05/23 20:34 Home Medications Medication Instructions Recorded Confirmed Type multivitamin 1 tab PO DAILY ##0 11/12/10 04/05/23 History omega 4-bks-uuc-fish oil 1,000 mg 1 cap PO DAILY ##0 11/12/10 04/05/23 History (120 mg-180 mg) capsule (Fish Oil) cholecalciferol (vitamin D3) 25 1,000 unit PO DAILY 01/25/19 04/05/23 History mcg (1,000 unit) capsule (Vitamin D3) metoprolol succinate 25 mg 25 mg PO QAM 01/25/19 04/05/23 History tablet,extended release 24 hr ascorbic acid (vitamin C) 250 mg 250 mg PO QAM 06/01/19 04/05/23 History chewable tablet (Vitamin C) fluticasone propionate 50 1 spray intranasal DAILY PRN 06/01/19 04/05/23 History mcg/actuation nasal Allergy Symptoms spray,suspension (Flonase Allergy Relief) glucosamine-chondroitin 250 mg-200 1 tab PO QAM 06/01/19 04/05/23 History mg tablet (Osteo Bi-Flex) denosumab 60 mg/mL subcutaneous 60 mg subcut .[id number] 02/10/23 04/05/23 History syringe (Prolia) fluticasone fur. 200 mcg-umeclid 1 inh inhalation PM 02/10/23 04/05/23 History 62.5 mcg-vilant 25 mcg inhalat.powder (Trelegy Ellipta) rosuvastatin 20 mg tablet 20 mg PO HS 02/10/23 04/05/23 History Lactobacillus acidophilus 1 1,000 mmu cells PO DAILY #7 caps 02/14/23 04/05/23 Rx billion cell capsule cholecalciferol (vitamin D3) 125 5,000 unit PO QAM 30 days #30 tabs 03/29/23 04/05/23 Rx mcg (5,000 unit) tablet pantoprazole 40 mg tablet,delayed 40 mg PO BID 30 days #60 tabs 03/29/23 04/05/23 Rx release amoxicillin 875 mg-potassium 1 tab PO BID 04/06/23 04/06/23 History clavulanate 125 mg tablet ciprofloxacin HCl 500 mg tablet 500 mg PO BID 04/06/23 04/06/23 History montelukast 10 mg tablet 10 mg PO DAILY 04/06/23 04/06/23 History Patient History Medical History Osteoporosis COPD (chronic obstructive pulmonary disease) Chronic sinusitis Asthma Diverticulitis Degenerative arthritis of knee, bilateral Trochanteric bursitis, right hip Osteoarthritis GERD (gastroesophageal reflux disease) Hyperlipidemia Hypertension Surgical History H/O esophagogastroduodenoscopy (03/25/23) Esophagogastroduodenoscopy(Not Applicable) - Lili Alegre, Hx laparoscopic cholecystectomy (03/08/23) Laparoscopic Cholecystectomy - Lili Alegre, DO Hx of colonoscopy History of open reduction and internal fixation (ORIF) procedure RIGHT HIP Hx of sinus surgery Family History Other Family history non-contributory Social History Smoking Status: Never smoker Tobacco Type: Cigarettes Second Hand Exposure: No; Do You Dip or Chew Tobacco: No; Hx Alcohol Use: No Hx Substance Use: No Preferred Language: Croatian Communication Ability: Effective Hosiery Bagger Required: No Beliefs That Will Affect Care: None Current Living Situation: Spouse Current Living Situation Comment: lives at home w Other Information That Helps Us Care for You: No Feels Safe at Home: Yes Safety Concerns: Feels Safe At This Time Assistive Devices: Cane, Nebulizer and Walker Review of Systems 2 Review of Systems: All systems reviewed & are unremarkable except as noted in HPI & below Physical Exam 2 Constitutional: well developed, well nourished, + frail appearing and cooperative; no acute distress Eyes: EOM intact bilaterally ENMT: Ears: no external ear abnormality Nose: no external nose abnormality Mouth: + dry oral mucous membranes Neck: no nuchal rigidity Respiratory: normal respiratory effort and + cough (occasional weak) A uscultation: + diminished lung sounds and + rhonchi Gastrointestinal (Abdomen): Inspection/Auscultation: normal bowel sounds P ercussion/Palpation: abdomen soft; abdomen nontender Musculoskeletal: Extremities: strength 5/5 throughout Skin: no rashes, warm and dry Neurologic: hull, fluent speech, no tremor Psychiatric: Orientation: alert and oriented x 3 Results & Data Vital Signs (Past 12 Hours) Vital Signs Temp Pulse Pulse Resp BP BP Pulse Ox 04/06/23 10:45 36.9 C 88 16 107/86 96 04/06/23 07:03 93 H 04/06/23 06:00 85 26 H 108/57 L 93 04/06/23 05:30 84 26 H 121/63 99 04/06/23 05:00 88 19 130/57 L 99 04/06/23 04:30 86 25 H 128/63 96 04/06/23 04:00 85 24 125/72 96 04/06/23 03:30 83 28 H 106/57 L 97 04/06/23 03:00 88 24 137/71 96 04/06/23 02:30 96 H 16 128/70 100 04/06/23 02:00 87 18 125/68 99 04/06/23 01:30 89 18 128/64 97 04/06/23 00:40 97 H 04/06/23 00:30 99 H 18 124/67 96 04/06/23 00:03 96 H 18 139/65 95 04/05/23 23:44 37.3 C 106 H 18 135/78 96 O2 Del Method O2 Flow Rate 04/06/23 10:45 Room Air 04/06/23 07:03 04/06/23 06:00 Nasal Cannula 2 04/06/23 05:30 Nasal Cannula 2 04/06/23 05:00 Nasal Cannula 2 04/06/23 04:30 Nasal Cannula 2 04/06/23 04:00 Nasal Cannula 2 04/06/23 03:30 Nasal Cannula 2 04/06/23 03:00 Nasal Cannula 2 04/06/23 02:30 Nasal Cannula 2 04/06/23 02:00 Room Air 04/06/23 01:30 Nasal Cannula 2 04/06/23 00:40 04/06/23 00:30 Nasal Cannula 2 04/06/23 00:03 Room Air 04/05/23 23:44 Nasal Cannula 2 Laboratory Results 04/06/23 06:52 04/06/23 06:52 Icalcium 0.9 Mag 1.0 04/05 1700 > 2.2 this am March 25 calcium labs: 25-hydroxy vitamin D 60, 1, 2 5 dihydroxy vitamin D 83, PTH 440
--- NOTE | 2023-04-06 11:45 | Electrocardiogram Report ---
Test Reason : Blood Pressure : / mmHG Vent. Rate : 122 BPM Atrial Rate : 122 BPM P-R Int : 112 ms QRS Dur : 056 ms QT Int : 328 ms P-R-T Axes : 083 047 236 degrees QTc Int : 467 ms Sinus tachycardia Possible Left atrial enlargement Low voltage QRS Abnormal ECG When compared with ECG of 25-MAR-2023 10:01, Questionable change in QRS duration Confirmed by Gigi James ([id number]) on 04/06/2023 11:44:56 AM Referred By: Manoj Weber Confirmed By:Jacob James
--- NOTE | 2023-04-06 12:28 | Hospitalist Progress Note ---
Date of Service April 06, 2023 Assessment & Plan (1) Generalized weakness: Plan: per Dr. Mcnulty's notes with addendum: 77-year-old female with past med significant for hyperlipidemia, asthma mild persistent, chronic sinusitis, history of CAD, patent foramen ovale, atrial septal aneurysm, GERD, diverticulitis of sigmoid colon, osteoporosis, aspirin contraindicated, presents with nausea and weakness and not feeling well. Patient had prolonged antibiotic course for diverticular abscess. She was admitted initially on February 10 at [facility] for diverticular abscess treated with Vanco cefepime and metronidazole and she was discharged on cefdinir and metronidazole. She followed with PCP for abdominal pain March 03. CT scan showed diffuse diverticulitis with abscess abscess measuring 3.2 x 2.0 x 3.4 cm. Patient was admitted to [facility]. CT scan also showed some nonspecific GALLBLADDER wall thickening. She had cholecystectomy on 03/08. 03/12/23 had worsening nausea and abdominal pain and repeat his CAT scan showed increasing diverticular abscess to 2.6 x 4.7 cm. General surgery consulted and advised for transfer to [place] for IR drainage. At [place] IR drainage was deemed unsuitable due to its intramural location. ID was consulted. ID recommended IV Invanz. Had PICC line and was discharged. ID recommended Invanz for 21 days. Again she was admitted [facility] on 03/22/23 for weakness and abdominal pain. ID was consulted and Invanz was changed to Cipro and Flagyl due to nausea. As Patient having persistent nausea and poor appetite on March 28 GI was consulted. Repeat CT scan showed increased size of abscess. GI recommended advanced endoscopist for possible drainage. And she was transferred to [place] on March 29. At [place] antibiotics were changed Zosyn after testing for allergy. GI attempted lower endoscopy / endoscopic ultrasound and flexible sigmoidoscopy on 04/01/23 but was not completed due to severe diverticulosis in the sigmoid colon with narrowing of colon and spasm. IR attempted percutaneous drainage but this was aborted as a repeat CT demonstrated no abscess to drain. It was thought that abscess may have self drained after manipulation by GI. Zosyn was switched to p.o. Cipro and Augmentin and was stable to discharge 2022 for total of 9 more days of p.o. antibiotics. Patient currently thinks her abdominal infection is getting better. Yesterday she had episode of diarrhea. But today she did not move her bowels. Was feeling nauseous poor appetite. Having weakness.. Not feeling well. Denies any fevers. No chest pain or shortness of breath. No cough. No runny nose or sore throat. No headache. Hemodynamically stable. GENERALIZED WEAKNESS NAUSEA POOR APPETITE DIVERTICULAR ABSCESS On antibiotics for long time for diverticular abscess Currently on p.o. Augmentin and p.o. Cipro for total of 9 days starting on April 03/2023 Patient thinks her infection is getting better Had an episode of diarrhea yesterday Today did not move her bowels Hemodynamically stable No leukocytosis Labs showed magnesium of 1.0 Will replace magnesium Gentle fluids Follow repeat labs in a.m. Tachycardic on presentation currently improved Getting KUB Monitor in the hospital 04/06 CT abdomen pelvis ordered to follow-up diverticular abscess area If continues to have nausea, will order Emend HYPOKALEMIA, HYPOCALCEMIA From poor oral intake P.o. and IV supplement ordered Nephrology consulted ABNORMAL EKG Nonspecific ST-T wave changes Denies cardiac symptoms History of CAD On statin, beta-elisabeth GERD Protonix Hyperlipidemia On statin History of asthma Home inhalers On montelukast Right kidney lesion On the CAT scan previous admission Needs follow-up DVT prophylaxis Lovenox Disposition Anticipate discharge to home medically stable PT and OT evaluation Admission and Anticipated Discharge Date Admission Date: April 06, 2023 Subjective Follow-up for nausea, etc. Seen resting in bed, not in distress States nausea is better this morning Denies abdominal pain No BM for the past 2 to 3 days Positive flatus no chest pain, dyspnea, palpitations, dizziness No fevers or chills Review of Systems Review of Systems: all noted and negative except for above Physical Exam Physical Exam: General- oriented x 3, not in distress, speaks in sentences with no effort or accessory muscle use Eyes- anicteric Neck- no JVD Lungs- clear breath sounds bilaterally, no rales/wheezes Heart- normal rate, regular rhythm; no murmurs Abdomen- normal bowel sounds, nondistended, soft, nontender Extremities- no pretibial edema, no calf tenderness Neuro- alert, oriented x 3; no gross focal neurologic deficits Skin- warm & dry Results & Data Results & Data Vital Signs (Past 12 Hours) Vital Signs Temp Pulse Pulse Resp BP BP Pulse Ox 04/06/23 10:45 36.9 C 88 16 107/86 96 04/06/23 07:03 93 H 04/06/23 06:00 85 26 H 108/57 L 93 04/06/23 05:30 84 26 H 121/63 99 04/06/23 05:00 88 19 130/57 L 99 04/06/23 04:30 86 25 H 128/63 96 04/06/23 04:00 85 24 125/72 96 04/06/23 03:30 83 28 H 106/57 L 97 04/06/23 03:00 88 24 137/71 96 04/06/23 02:30 96 H 16 128/70 100 04/06/23 02:00 87 18 125/68 99 04/06/23 01:30 89 18 128/64 97 04/06/23 00:40 97 H 04/06/23 00:30 99 H 18 124/67 96 O2 Del Method O2 Flow Rate 04/06/23 10:45 Room Air 04/06/23 07:03 04/06/23 06:00 Nasal Cannula 2 04/06/23 05:30 Nasal Cannula 2 04/06/23 05:00 Nasal Cannula 2 04/06/23 04:30 Nasal Cannula 2 04/06/23 04:00 Nasal Cannula 2 04/06/23 03:30 Nasal Cannula 2 04/06/23 03:00 Nasal Cannula 2 04/06/23 02:30 Nasal Cannula 2 04/06/23 02:00 Room Air 04/06/23 01:30 Nasal Cannula 2 04/06/23 00:40 04/06/23 00:30 Nasal Cannula 2 all noted and reviewed including below
--- NOTE | 2023-04-06 14:05 | CT Scan Report ---
CT SCAN OF THE ABDOMEN AND PELVIS WITHOUT IV CONTRAST CLINICAL HISTORY: Follow-up diverticular abscess. COMPARISON STUDY: Multiple recent prior abdominal CT scans, most recently dated 03/28/2023. TECHNIQUE: Unenhanced CT scan of the abdomen and pelvis is performed from the lung bases to the proxi mal femora. Images are reviewed in the axial, sagittal, and coronal planes. IV contrast was not admin istered as per the referring clinician. Note that the examination was performed in significantly subo ptimal fashion without oral and IV contrast. A dose lowering technique was utilized adhering to the p rinciples of OTTO. CT DOSE: 721.51 mGy.cm FINDINGS: Lung bases: The heart is top normal in size and without pericardial effusion. The coronary arteries a re denser calcified. There are trace pleural effusions with dependent atelectasis. No airspace consol idation is seen typical for pneumonia. A small hiatal hernia is noted. Liver: The unenhanced liver is normal in size, contour, and attenuation. Fatty infiltration is seen a long the falciform ligament. There is no intrahepatic biliary ductal dilatation. Gallbladder: Surgically absent noting clips in the gallbladder fossa. Spleen: Normal in size and attenuation. Pancreas: The unenhanced pancreas is grossly unremarkable. Adrenal glands: Unremarkable. Kidneys: The unenhanced kidneys are normal in size and without hydronephrosis. No renal calculi are i dentified. Simple and complex bilateral renal cysts measure up to 3.4 cm Abdominal vasculature: The abdominal aorta is normal in course and caliber noting moderate atheroscle rotic calcification. Bowel: There is moderate colonic diverticulosis. There is persistent wall thickening of the sigmoid c olon with surrounding inflammation at site of previously characterized diverticulitis and abscess. A multiloculated intramural abscess is again suggested involving the rectosigmoid. This is difficult to delineate without IV contrast. The loculation along the left aspect of the sigmoid on image #270 dennise sures at least 2.4 x 2.0 cm, and a loculation along the anterior aspect the rectosigmoid on image #28 5 measures at least 4.2 x 1.8 cm. These likely communicate. No bowel obstruction is seen. The appendi x is well-visualized and normal. Peritoneum: There is no intraperitoneal free air or abdominal ascites. There is a small fat-containin g abdominal hernia. Lymphadenopathy: None. Pelvic viscera: The bladder is distended but otherwise normal as imaged. The uterus and adnexa are no rmal as visualized. Skeletal structures: The skeletal structures are osteopenic. A mild compression deformity of L4 is un changed. Mild to moderate lumbosacral spondylosis is observed. No lytic or blastic lesions are seen. There is chronic deformity and postsurgical change seen in the right proximal femur. There is also ch ronic deformity right posterior acetabular roof. IMPRESSION: 1. Significantly suboptimal examination without oral and IV contrast. 2. Wall thickening of the sigmoid colon with surrounding inflammation at the site of previously kiya cterized diverticulitis is similar to the 03/28/2023 examination. 3. A multiloculated intramural abscess is again seen involving the sigmoid colon. This is difficult t o characterize/delineate without IV contrast, but appears modestly decreased in size from 03/28/2023. See above. 4. No intraperitoneal free air is seen. 5. Trace pleural effusions. 6. Additional findings as above. ACT 112: Negative or not required by law. Electronically signed by: Juan Miguel Rodriguez M.D. 04/06/2023 2:03 PM
[2023-04-06 18:47] LABS: Appearance Urine Clear (Clear); Bacteria Urine Automated Negative (Negative); Bilirubin Urine Negative (Negative); Blood Urine Negative (Negative); Color Urine Yellow; Glucose Urine UA Negative (Negative); Ketones Urine Negative (Negative); Leukocyte Esterase Urine 2+ (Negative); Nitrite Urine Negative (Negative); Protein Urine Negative (Negative); RBC Urine Automated 0-4 /hpf (0-4); Specific Gravity Urine 1.008 (1.000-1.030); Urobilinogen Urine Negative (Negative); WBC Urine Automated >30 /hpf (0-5); pH Urine 6.5 (4.5-7.5)
[2023-04-06] MEDS: ROSUVASTATIN CALCIUM 20 MG TAB PO SCH (20:35)
[2023-04-06] MEDS ORDERED: NON-FORMULARY MEDICATION (Fluticasone-Umeclidin-Vilanter [Trelegy Ellipta] 200-62.5-25 mcg INH SCH (21:00)
[2023-04-07] MEDS ORDERED: Nursing to Pharmacy Communication SCH (05:15)
[2023-04-07 06:13] LABS: Basophils # (auto) 0.04 K/uL (0.00-0.20); Basophils % (auto) 0.7 %; Eosinophils % (auto) 1.7 %; Hematocrit (blood only) 27.8 % (37.0-47.0); Immature Granulocytes # (auto) 0.01 K/uL (0.01-0.20); Immature Granulocytes % (auto) 0.2 %; Lymphocytes # (auto) 1.67 K/uL (1.20-3.40); Lymphocytes % (auto) 28.6 %; Mean Corpuscular Hemoglobin 28.8 pg (25.0-34.0); Mean Corpuscular Hgb Conc 32.4 g/dL (32.0-36.0); Mean Corpuscular Volume 88.8 fL (80.0-100.0); Monocytes # (auto) 0.44 K/uL (0.11-0.59); Monocytes % (auto) 7.5 %; Neutrophils # (auto) 3.58 K/uL (1.40-6.50); Neutrophils % (auto) 61.3 %; Platelet Count 317 K/uL (130-400); RDW Standard Deviation 48.4 fL (36.4-46.3); Red Blood Count 3.13 M/uL (4.20-5.40); White Blood Count 5.84 K/ul (4.8-10.8)
[2023-04-07 06:42] LABS: Albumin Globulin Ratio 1.2 (0.9-2); Bilirubin,Total 0.5 mg/dl (0.2-1.0); Globulin 2.5 gm/dl (2.5-4.0); Magnesium 1.6 mg/dl (1.7-2.4); Phosphorus 1.6 mg/dl (2.5-4.9); Potassium 3.2 mmol/L (3.5-5.1); Total Protein 5.5 gm/dl (6.0-8.3)
[2023-04-07] MEDS ORDERED: POTASSIUM CHLORIDE CRTAB 20 MEQ TABCR PO STA (07:32)
[2023-04-07] MEDS ORDERED: POTASSIUM PHOS 3 MMOL/1 ML INFUSION IV STA (07:32)
[2023-04-07] MEDS ORDERED: POTASSIUM PHOSPHATE 21 MMOL in SODIUM CHLORIDE 0.9% 500 ML IV ONE (08:00)
[2023-04-07] MEDS: MAGNESIUM SULFATE / D5W 1 GM/100 ML BAG IV SCH ×2 (08:18→11:14)
[2023-04-07] MEDS: GLUCOSAMINE SULFATE 500 MG CAP PO SCH (09:42)
[2023-04-07] MEDS: ASCORBIC ACID 500 MG TAB PO SCH (09:42)
[2023-04-07] MEDS: MONTELUKAST SODIUM 10 MG TABLET PO SCH (09:42)
[2023-04-07] MEDS: METOPROLOL SUCC 25MG EXT REL TAB PO SCH (09:42)
[2023-04-07] MEDS: AMOXICILLIN/CLAVULANATE 875 MG TAB PO SCH ×2 (09:42→20:02)
[2023-04-07] MEDS: PANTOprazole 40 MG TAB PO SCH ×2 (09:42→20:03)
[2023-04-07] MEDS: CHOLECALCIFEROL 1,000 UNITS 25 MCG TAB PO SCH (09:43)
[2023-04-07] MEDS: MULTIVITAMIN TAB PO SCH (09:43)
[2023-04-07] MEDS: CIPROFLOXACIN 500 MG TAB PO SCH ×2 (09:43→20:03)
[2023-04-07] MEDS: ADVANCED PROBIOTIC 1250 MG CAPSULE PO SCH (09:43)
[2023-04-07] MEDS: ENOXAPARIN INJ 40 MG/0.4 ML SYR SQ SCH (09:43)
[2023-04-07] MEDS: UMECLIDINIUM/VILANTEROL 62.5/25MCG 7 PUFFS/INHALER INH SCH (09:44)
[2023-04-07] MEDS: FLUTICASONE FUROATE 200MCG 14 PUFFS/INHALER INH SCH (09:44)
--- NOTE | 2023-04-07 10:54 | Nephrology Progress Note ---
Date of Service April 07, 2023 Assessment & Plan (1) Electrolyte disturbance: Plan: mild hypokalemia, mild hypocalcemia, mild /recurrent hypomagnesemia and hypophosphatemia -repeat RAMÓN labs show ongoing PTH elevation and adequate D stores -daily bmp, mag, phos -continue moderate dose D3 (25 OH D levels reasonably high despite low Ca) -already getting IV mag, phos today; also had 40 mEq po K >started neutraphos 2 tabs qid and standing K 20 mEq po bid -senior ecologist c/s for high phos, high K foods and dietary supplement/protein shake monitor for worse N w/ above po supplements Admission and Anticipated Discharge Date Admission Date: April 06, 2023 Subjective GI c/s today for n/v, inability to keep abtx down; she tells me her meds make her N and minimal po intake; 2 loose bm daily; no sob, no paresthesias Review of Systems 2 Review of Systems: All systems reviewed & are unremarkable except as noted in Subjective Physical Exam 2 Constitutional: well developed, well nourished, + frail appearing and cooperative; no acute distress Eyes: EOM intact bilaterally ENMT: Ears: no external ear abnormality Nose: no external nose abnormality Mouth: + dry oral mucous membranes Neck: no nuchal rigidity Respiratory: normal respiratory effort and + cough (occasional weak) A uscultation: + diminished lung sounds and + rhonchi Gastrointestinal (Abdomen): Inspection/Auscultation: normal bowel sounds P ercussion/Palpation: abdomen soft; abdomen nontender Musculoskeletal: Extremities: strength 5/5 throughout Skin: no rashes, warm and dry Psychiatric: Orientation: alert and oriented x 3 Results & Data Vital Signs (Past 12 Hours) Vital Signs Temp Pulse Pulse Resp BP Pulse Ox O2 Del Method 04/07/23 08:21 90 04/07/23 08:21 Room Air 04/07/23 07:57 36.9 C 86 16 106/51 L 94 Room Air 04/07/23 02:51 36.9 C 86 18 111/61 95 Room Air 04/06/23 23:28 36.8 C 100 H 18 108/65 94 Room Air Laboratory Results 04/07/23 05:31 04/07/23 05:31 phos and mag both 1.6 Ca 7
--- NOTE | 2023-04-07 12:45 | Gastrointestinal Consultation ---
Date of Consultation April 07, 2023 Assessment & Plan (1) Nausea & vomiting: (2) Colonic diverticular abscess: Plan Antiemetics Continued antibiotics, consider ID consult if unable to tolerate. Recommend surgical consult. No role for endoscopic procedures. Supervising Physician Co-Signing Physician Notes Attending attestation I have seen, examined this patient, and agree with the findings and above by our mid-level provider IVAN Grubbs, with the following additions: recurrent abscess, unlikely to improve without intervention. C/s surgery, iv abx History of Present Illness Reason for Consultation: nausea, diverticular abscess Requesting Physician: Dr. Jacobs Attending Physician: Lauro Jacobs MD History of Present Illness Ms Ro Watson is a 77 yr old female pt of Dr. Manoj Weber w a hx of HLD, asthma, chronic sinusitis, CAD, patent foramen ovales, atrial septal aneurys, GERD, osteoporosis. She has had multiple admission this fall for diverticulitis and underwent cholecystectomy as well. A summary of events as follows: Admission Feb 10 for diverticulitis w abscess, tx w Vanco, Cefepime, flagyl. DC'ed on Cefdnir and Flagyl. Mar 03, pain, N/V CT w 3cm abcess, admitted to [facility], underwent cholecystectomy on 03/08. Mar 12, worsening N/V, CT w 4.7cm diverticular abscess, Mar 29 transferred to [place] where GI attempted drainage but unable due to spasm, then IR studies showed the abscess had resolved. IV Invanz via PICC x 21 days. DC from [place] on Friday 04/06. Since Tuesday, has had problems holding down antibiotics, Cipro/Flagyl. Reports that after one hour of taking these, she vomits. She has also had diarrhea about 2x/day since DC from [place] on Tuesday. GI is consulted for nausea. The pt is seen, examined while sitting up in a chair. She feels well w/o nausea currently and reports no vomiting since admission early yesterday. Currently taking Augmentin and Cipro. She denies any abdominal pain. Allergies Allergy/AdvReac Type Severity Reaction Status Date / Time amoxicillin Allergy Severe Itching Unverified 04/05/23 20:34 aspirin Allergy Mild wheeze Verified 04/05/23 20:34 Home Medications Medication Instructions Recorded Confirmed Type multivitamin 1 tab PO DAILY ##0 11/12/10 04/05/23 History omega 0-vom-jro-fish oil 1,000 mg 1 cap PO DAILY ##0 11/12/10 04/05/23 History (120 mg-180 mg) capsule (Fish Oil) cholecalciferol (vitamin D3) 25 1,000 unit PO DAILY 01/25/19 04/05/23 History mcg (1,000 unit) capsule (Vitamin D3) metoprolol succinate 25 mg 25 mg PO QAM 01/25/19 04/05/23 History tablet,extended release 24 hr ascorbic acid (vitamin C) 250 mg 250 mg PO QAM 06/01/19 04/05/23 History chewable tablet (Vitamin C) fluticasone propionate 50 1 spray intranasal DAILY PRN 06/01/19 04/05/23 History mcg/actuation nasal Allergy Symptoms spray,suspension (Flonase Allergy Relief) glucosamine-chondroitin 250 mg-200 1 tab PO QAM 06/01/19 04/05/23 History mg tablet (Osteo Bi-Flex) denosumab 60 mg/mL subcutaneous 60 mg subcut .[id number] 02/10/23 04/05/23 History syringe (Prolia) fluticasone fur. 200 mcg-umeclid 1 inh inhalation PM 02/10/23 04/05/23 History 62.5 mcg-vilant 25 mcg inhalat.powder (Trelegy Ellipta) rosuvastatin 20 mg tablet 20 mg PO HS 02/10/23 04/05/23 History Lactobacillus acidophilus 1 1,000 mmu cells PO DAILY #7 caps 02/14/23 04/05/23 Rx billion cell capsule cholecalciferol (vitamin D3) 125 5,000 unit PO QAM 30 days #30 tabs 03/29/23 04/05/23 Rx mcg (5,000 unit) tablet pantoprazole 40 mg tablet,delayed 40 mg PO BID 30 days #60 tabs 03/29/23 04/05/23 Rx release amoxicillin 875 mg-potassium 1 tab PO BID 04/06/23 04/06/23 History clavulanate 125 mg tablet ciprofloxacin HCl 500 mg tablet 500 mg PO BID 04/06/23 04/06/23 History montelukast 10 mg tablet 10 mg PO DAILY 04/06/23 04/06/23 History Patient History Medical History Osteoporosis COPD (chronic obstructive pulmonary disease) Chronic sinusitis Asthma Diverticulitis Degenerative arthritis of knee, bilateral Trochanteric bursitis, right hip Osteoarthritis GERD (gastroesophageal reflux disease) Hyperlipidemia Hypertension Surgical History H/O esophagogastroduodenoscopy (03/25/23) Esophagogastroduodenoscopy(Not Applicable) - Lili Alegre DO Hx laparoscopic cholecystectomy (03/08/23) Laparoscopic Cholecystectomy - Lili Alegre DO Hx of colonoscopy History of open reduction and internal fixation (ORIF) procedure RIGHT HIP Hx of sinus surgery Family History Other Family history non-contributory Social History Smoking Status: Never smoker Tobacco Type: Cigarettes Second Hand Exposure: No; Do You Dip or Chew Tobacco: No; Hx Alcohol Use: No Hx Substance Use: No Preferred Language: Belarusian Communication Ability: Effective Manufacturer Required: No Beliefs That Will Affect Care: None Current Living Situation: Spouse Current Living Situation Comment: lives at home w Other Information That Helps Us Care for You: No Feels Safe at Home: Yes Safety Concerns: Feels Safe At This Time Assistive Devices: Cane, Nebulizer and Walker Review of Systems Review of Systems: ROS: Gen: + for weakness, weight loss, poor appetite, no recent fevers Eyes: No eye redness, or pain, no recent vision changes Resp: No SOB, no cough Cardio: No palpitations/irregular beats, no chest pain GI: As per HPI, otherwise (-). : Denies pain on urination Skin: No jaundice, itching or new rashes Physical Exam Constitutional: WD/WN, vitals as above Eyes: PERRL, conjunctivae normal, anicteric sclerae ENMT: external ear and nose normal, oropharynx normal Neck: trachea midline, no thyromegaly Respiratory: normal respiratory effort, lungs clear to auscultation Cardiovascular: RRR, no murmur, no edema Gastrointestinal (Abdomen): normal bowel sounds, soft, nontender, no hepatosplenomegaly Musculoskeletal: no cyanosis or clubbing, extremities motor strength 5/5 Skin: no rashes, warm and dry Psychiatric: A+Ox3, euthymic affect Lymphatic: no cervical or axillary lymphadenopathy Results & Data Vital Signs (Past 12 Hours) Vital Signs Temp Pulse Pulse Resp BP Pulse Ox O2 Del Method 04/07/23 11:55 36.6 C 95 H 16 119/67 96 Room Air 04/07/23 08:21 90 04/07/23 08:21 Room Air 04/07/23 07:57 36.9 C 86 16 106/51 L 94 Room Air 04/07/23 02:51 36.9 C 86 18 111/61 95 Room Air Laboratory Results WBC 5, Hb 9, Hct 27, Plts 317, Na 139, K 3.2, CL 109, CO2 24, BUN 2, Cr 0.5, glucose 101. Ma 1.6, Ph 1.6, Diagnostic Findings Non contrast CTAP: Bowel: There is moderate colonic diverticulosis. There is persistent wall thickening of the sigmoid colon with surrounding inflammation at site of previously characterized diverticulitis and abscess. A multiloculated intramural abscess is again suggested involving the rectosigmoid. This is difficult to delineate without IV contrast. The loculation along the left aspect of the sigmoid on image #270 measures at least 2.4 x 2.0 cm, and a loculation along the anterior aspect the rectosigmoid on image #285 measures at least 4.2 x 1.8 cm. These likely communicate. No bowel obstruction is seen. The appendix is well-visualized and normal. Diverticulitis is similar to the 03/28/2023 examination.
[2023-04-07] MEDS: POT PHOSPHATE MONOBASIC W/ SOD TAB PO SCH ×3 (13:56→20:02)
--- NOTE | 2023-04-07 17:26 | Hospitalist Progress Note ---
Date of Service April 07, 2023 Assessment & Plan (1) Generalized weakness: Plan: per Dr. Mcnulty's notes with addendum: 77-year-old female with past med significant for hyperlipidemia, asthma mild persistent, chronic sinusitis, history of CAD, patent foramen ovale, atrial septal aneurysm, GERD, diverticulitis of sigmoid colon, osteoporosis, aspirin contraindicated, presents with nausea and weakness and not feeling well. Patient had prolonged antibiotic course for diverticular abscess. She was admitted initially on February 10 at [facility] for diverticular abscess treated with Vanco cefepime and metronidazole and she was discharged on cefdinir and metronidazole. She followed with PCP for abdominal pain March 03. CT scan showed diffuse diverticulitis with abscess abscess measuring 3.2 x 2.0 x 3.4 cm. Patient was admitted to [facility]. CT scan also showed some nonspecific GALLBLADDER wall thickening. She had cholecystectomy on 03/08. 03/12/23 had worsening nausea and abdominal pain and repeat his CAT scan showed increasing diverticular abscess to 2.6 x 4.7 cm. General surgery consulted and advised for transfer to [place] for IR drainage. At [place] IR drainage was deemed unsuitable due to its intramural location. ID was consulted. ID recommended IV Invanz. Had PICC line and was discharged. ID recommended Invanz for 21 days. Again she was admitted [facility] on 03/22/23 for weakness and abdominal pain. ID was consulted and Invanz was changed to Cipro and Flagyl due to nausea. As Patient having persistent nausea and poor appetite on March 28 GI was consulted. Repeat CT scan showed increased size of abscess. GI recommended advanced endoscopist for possible drainage. And she was transferred to [place] on March 29. At [place] antibiotics were changed Zosyn after testing for allergy. GI attempted lower endoscopy / endoscopic ultrasound and flexible sigmoidoscopy on 04/01/23 but was not completed due to severe diverticulosis in the sigmoid colon with narrowing of colon and spasm. IR attempted percutaneous drainage but this was aborted as a repeat CT demonstrated no abscess to drain. It was thought that abscess may have self drained after manipulation by GI. Zosyn was switched to p.o. Cipro and Augmentin and was stable to discharge 2022 for total of 9 more days of p.o. antibiotics. Patient currently thinks her abdominal infection is getting better. Yesterday she had episode of diarrhea. But today she did not move her bowels. Was feeling nauseous poor appetite. Having weakness.. Not feeling well. Denies any fevers. No chest pain or shortness of breath. No cough. No runny nose or sore throat. No headache. Hemodynamically stable. GENERALIZED WEAKNESS NAUSEA POOR APPETITE DIVERTICULAR ABSCESS On antibiotics for long time for diverticular abscess Currently on p.o. Augmentin and p.o. Cipro for total of 9 days starting on April 03/2023 Patient thinks her infection is getting better Had an episode of diarrhea yesterday Today did not move her bowels Hemodynamically stable No leukocytosis Labs showed magnesium of 1.0 Will replace magnesium Gentle fluids Follow repeat labs in a.m. Tachycardic on presentation currently improved Getting KUB Monitor in the hospital 04/07 CT abdomen pelvis : 1. Significantly suboptimal examination without oral and IV contrast. 2. Wall thickening of the sigmoid colon with surrounding inflammation at the site of previously characterized diverticulitis is similar to the 03/28/2023 examination. 3. A multiloculated intramural abscess is again seen involving the sigmoid colon. This is difficult to characterize/delineate without IV contrast, but appears modestly decreased in size from 03/28/2023. See above. 4. No intraperitoneal free air is seen. 5. Trace pleural effusions. 6. Additional findings as above. Nausea seems to be resolving Left lower quadrant pain also seems to be resolving Electrolytes still low, management per below GI consulted-no endoscopic intervention at this point General surgery consulted HYPOKALEMIA, HYPOCALCEMIA, HYPOPHOSPHATEMIA, HYPOMAGNESEMIA Supplements ordered Nephrology also consulted ABNORMAL EKG Nonspecific ST-T wave changes Denies cardiac symptoms History of CAD On statin, beta-elisabeth GERD Protonix Hyperlipidemia On statin History of asthma Home inhalers On montelukast Right kidney lesion On the CAT scan previous admission Needs follow-up DVT prophylaxis Lovenox Disposition Anticipate discharge to home medically stable PT and OT evaluation Admission and Anticipated Discharge Date Admission Date: April 06, 2023 Subjective Follow-up for nausea, diverticular abscess, etc. Seen resting in bedside chair, comfortable, not in distress States she feels improved today No nausea since last night Denies left lower quadrant abdominal pain Diarrhea also improving Appetite still not that great Review of Systems Review of Systems: all noted and negative except for above Physical Exam Physical Exam: General- oriented x 3, not in distress, speaks in sentences with no effort or accessory muscle use Eyes- anicteric Neck- no JVD Lungs- clear breath sounds bilaterally, no crackles or wheezing Heart- normal rate, regular rhythm; no murmurs Abdomen- normal bowel sounds, nondistended, soft, nontender Extremities- no pretibial edema, no calf tenderness Neuro- alert, oriented x 3; no gross focal neurologic deficits Skin- warm & dry Results & Data Results & Data Vital Signs (Past 12 Hours) Vital Signs Temp Pulse Pulse Resp BP Pulse Ox O2 Del Method 04/07/23 16:11 37.1 C 93 H 16 111/71 92 Room Air 04/07/23 11:55 36.6 C 95 H 16 119/67 96 Room Air 04/07/23 08:21 90 04/07/23 08:21 Room Air 04/07/23 07:57 36.9 C 86 16 106/51 L 94 Room Air all noted and reviewed including below
[2023-04-07] MEDS: ROSUVASTATIN CALCIUM 20 MG TAB PO SCH (20:03)
--- NOTE | 2023-04-07 20:14 | Communication Note ---
Date of Service: April 07, 2023 Patient with nausea symptoms secondary to illness as per RN. No headache or belly pain or constipation complaints. SBP 110s. Clear liquid diet for now.
[2023-04-07] MEDS ORDERED: POTASSIUM CHLORIDE CRTAB 20 MEQ TABCR PO SCH (21:00)
[2023-04-08 05:38] LABS: Albumin Globulin Ratio 1.3 (0.9-2); Albumin Level 2.9 gm/dl (3.4-5.0); BUN Creatinine Ratio 6.1 (10-20); Bilirubin,Total 0.5 mg/dl (0.2-1.0); Calcium 7.1 mg/dl (8.6-10.3); Creatinine Clr Calc Pharmacy 86.7 ml/min; Est GFR (African American) 109.7 ml/min; Est GFR (Non-African American) 94.6 ml/min; Globulin 2.3 gm/dl (2.5-4.0); Magnesium 1.6 mg/dl (1.7-2.4); Phosphorus 3.3 mg/dl (2.5-4.9); Potassium 3.4 mmol/L (3.5-5.1); Total Protein 5.2 gm/dl (6.0-8.3)
[2023-04-08] MEDS: MULTIVITAMIN TAB PO SCH (09:54)
[2023-04-08] MEDS: CIPROFLOXACIN 500 MG TAB PO SCH ×2 (09:54→20:41)
[2023-04-08] MEDS: ASCORBIC ACID 500 MG TAB PO SCH (09:54)
[2023-04-08] MEDS: METOPROLOL SUCC 25MG EXT REL TAB PO SCH (09:55)
[2023-04-08] MEDS: ENOXAPARIN INJ 40 MG/0.4 ML SYR SQ SCH (09:56)
[2023-04-08] MEDS: CHOLECALCIFEROL 1,000 UNITS 25 MCG TAB PO SCH (09:56)
[2023-04-08] MEDS: MONTELUKAST SODIUM 10 MG TABLET PO SCH (09:56)
--- NOTE | 2023-04-08 09:56 | Surgery Consultation ---
Date of Consultation April 08, 2023 Assessment & Plan (1) Generalized weakness: (2) Nausea & vomiting: (3) Hypomagnesemia: (4) Colonic diverticular abscess: Plan I have discussed bowel resection with Ro again. We both agree that this has been going on for a long time and she has not been able to completely resolve this. If it is the conservative treatment that she is unable to tolerate and it is not getting us to complete resolution of the colonic abscess, that would be an indication to move forward with surgery. The antibiotics could be contributing to loose stools, nausea subsequent vomiting, electrolyte abnormalities and weakness. Nonetheless, they are not treating the abscess. Consideration could be made that if the abscess is now smaller due to recent instrumentation and now may be able to be finally treated to complete resolution by the antibiotics, remains to be seen. I have explained that now that she has been on antibiotics for such a length of time, the abscess is greatly reduced and moreover, contained intramurally, there may be an opportunity to reconnect her bowels after resection. I made her aware that there is still a strong possibility that she may end up with a colostomy and I will not know the condition of her intra-abdominal space until we are in there. Nonetheless, she would like to think about this over the weekend and discuss this with her family. At the same time, she will see if there is some drastic improvement in her symptoms over this weekend. I have asked her to have a decision by Tuesday so that we may plan for surgery on Tuesday if she is still having issues at that time. History of Present Illness Reason for Consultation: Nausea, diarrhea, vomiting with h/o sigmoid diverticulitis with intramural abscess Attending Physician: Lauro Jacobs MD History of Present Illness Ro is a 77 y/o F who returned to [facility] with ongoing symptoms of nausea and vomiting. She had been admitted here a number of times in the past two months with similar symptoms and in the setting of known intramural abscess of the sigmoid colon. Along with this she also has c/o diarrhea and weakness and has been found to have significant electrolyte derangements at each admission. After being seen here on two occasions, she had gone to [place] on one return to the ED on her own and they continued similar treatment but were able to provide in house ID consultation which sent her home with a PICC line and IV antibiotics. Unfortunately symptoms persisted/returned and she returned to us. [facility] GI became involved at that last admission with the suspicion that they may be able to provide intra-luminal drainage of this abscess that was not resolving per CT scans. She was then transferred to [place] for that procedure which was not directly successful but found that the patient did subsquently drain a good portion of this abscess then on her own. Her most recent CT now performed at this ED admission was done without IV contrast so complete characterization of the abscess is not possible but it does appear as though this multiloculated intramural abscess is finally a lot smaller than it has been. GI was reconsulted and is unable to offer any further assistance at this point in time. Surgery has now been re-consulted. Mrs. Serrano is somewhat difficult to obtain clear and concise history from to be sure of the cause of her symptoms. She repeatedly reports to me that she thinks it is her medications. She states she will sometimes gag on her pills and then will vomit without having nausea. She also states she gets nauseous after taking her antibiotics. She denies abdominal pain and states the diarrhea feels improved. She states she generally feels improved but notes that she keeps going back and forth. She denies fevers or chills. She was admitted on a regular diet but was reduced to liquids she says because she had an episode of vomiting yesterday that was due to her gagging on a pill. Allergies Allergy/AdvReac Type Severity Reaction Status Date / Time amoxicillin Allergy Severe Itching Unverified 04/05/23 20:34 aspirin Allergy Mild wheeze Verified 04/05/23 20:34 Home Medications Medication Instructions Recorded Confirmed Type multivitamin 1 tab PO DAILY ##0 11/12/10 04/05/23 History omega 5-mvi-hls-fish oil 1,000 mg 1 cap PO DAILY ##0 11/12/10 04/05/23 History (120 mg-180 mg) capsule (Fish Oil) cholecalciferol (vitamin D3) 25 1,000 unit PO DAILY 01/25/19 04/05/23 History mcg (1,000 unit) capsule (Vitamin D3) metoprolol succinate 25 mg 25 mg PO QAM 01/25/19 04/05/23 History tablet,extended release 24 hr ascorbic acid (vitamin C) 250 mg 250 mg PO QAM 06/01/19 04/05/23 History chewable tablet (Vitamin C) fluticasone propionate 50 1 spray intranasal DAILY PRN 06/01/19 04/05/23 History mcg/actuation nasal Allergy Symptoms spray,suspension (Flonase Allergy Relief) glucosamine-chondroitin 250 mg-200 1 tab PO QAM 06/01/19 04/05/23 History mg tablet (Osteo Bi-Flex) denosumab 60 mg/mL subcutaneous 60 mg subcut .[id number] 02/10/23 04/05/23 History syringe (Prolia) fluticasone fur. 200 mcg-umeclid 1 inh inhalation PM 02/10/23 04/05/23 History 62.5 mcg-vilant 25 mcg inhalat.powder (Trelegy Ellipta) rosuvastatin 20 mg tablet 20 mg PO HS 02/10/23 04/05/23 History Lactobacillus acidophilus 1 1,000 mmu cells PO DAILY #7 caps 02/14/23 04/05/23 Rx billion cell capsule cholecalciferol (vitamin D3) 125 5,000 unit PO QAM 30 days #30 tabs 03/29/23 04/05/23 Rx mcg (5,000 unit) tablet pantoprazole 40 mg tablet,delayed 40 mg PO BID 30 days #60 tabs 03/29/23 04/05/23 Rx release amoxicillin 875 mg-potassium 1 tab PO BID 04/06/23 04/06/23 History clavulanate 125 mg tablet ciprofloxacin HCl 500 mg tablet 500 mg PO BID 04/06/23 04/06/23 History montelukast 10 mg tablet 10 mg PO DAILY 04/06/23 04/06/23 History Patient History Medical History Osteoporosis COPD (chronic obstructive pulmonary disease) Chronic sinusitis Asthma Diverticulitis Degenerative arthritis of knee, bilateral Trochanteric bursitis, right hip Osteoarthritis GERD (gastroesophageal reflux disease) Hyperlipidemia Hypertension Surgical History H/O esophagogastroduodenoscopy (03/25/23) Esophagogastroduodenoscopy(Not Applicable) - Lili Alegre, DO Hx laparoscopic cholecystectomy (03/08/23) Laparoscopic Cholecystectomy - Lili Alegre DO Hx of colonoscopy History of open reduction and internal fixation (ORIF) procedure RIGHT HIP Hx of sinus surgery Family History Other Family history non-contributory Social History Smoking Status: Never smoker Tobacco Type: Cigarettes Second Hand Exposure: No; Do You Dip or Chew Tobacco: No; Hx Alcohol Use: No Hx Substance Use: No Preferred Language: Romanian Communication Ability: Effective Pyridine Operator Required: No Beliefs That Will Affect Care: None Current Living Situation: Spouse Current Living Situation Comment: lives at home w Other Information That Helps Us Care for You: No Feels Safe at Home: Yes Safety Concerns: Feels Safe At This Time Assistive Devices: Cane, Nebulizer and Walker Review of Systems Review of Systems: As stated above Physical Exam Constitutional: average body habitus; not ill appearing, not in distress and not diaphoretic Respiratory: normal respiratory effort; no respiratory distress, no labored breathing and does not use accessory muscles Cardiovascular: Rate/Rhythm: regular rate Extremities are well perfused Gastrointestinal (Abdomen): Abdomen is soft, bladder distention. Non-tender, no guarding Results & Data Vital Signs (Past 12 Hours) Vital Signs Temp Pulse Pulse Resp BP Pulse Ox O2 Del Method 04/08/23 07:54 36.8 C 94 H 16 112/64 93 Room Air 04/08/23 07:28 80 04/08/23 03:38 36.8 C 91 H 16 113/70 95 Room Air 04/07/23 23:01 36.9 C 81 18 99/65 L 93 Room Air 04/07/23 22:01 94 H PG Care Time/CCT Total # of Minutes Spent Total Time Spent with Patient: Total time spent is greater than 50% in coordination of care (as documented) at patient's floor/unit and/or counseling patient: Coding Level of Care Code 68180 INT INP/OBS CARE 1/40MIN Diagnoses Generalized weakness R53.1 Nausea & vomiting R11.2 Hypomagnesemia E83.42 Colonic diverticular abscess K57.20
[2023-04-08] MEDS: PANTOprazole 40 MG TAB PO SCH ×2 (09:57→20:42)
[2023-04-08] MEDS: AMOXICILLIN/CLAVULANATE 875 MG TAB PO SCH ×2 (09:57→20:42)
[2023-04-08] MEDS: ADVANCED PROBIOTIC 1250 MG CAPSULE PO SCH (09:57)
[2023-04-08] MEDS: GLUCOSAMINE SULFATE 500 MG CAP PO SCH (09:57)
[2023-04-08] MEDS: FLUTICASONE FUROATE 200MCG 14 PUFFS/INHALER INH SCH (09:58)
[2023-04-08] MEDS: UMECLIDINIUM/VILANTEROL 62.5/25MCG 7 PUFFS/INHALER INH SCH (09:58)
[2023-04-08 10:47] LABS: Adenovirus F 40/41 PCR Not Detected (NotDetected); Astrovirus PCR Not Detected (NotDetected); Campylobacter PCR Not Detected (NotDetected); Cryptosporidium PCR Not Detected (NotDetected); Cyclospora cayetanensis PCR Not Detected (NotDetected); Entamoeba histolytica PCR Not Detected (NotDetected); Enteroaggregative E.coli(EAEC) Not Detected (NotDetected); Enteropathogenic E.coli (EPEC) Not Detected (NotDetected); Enterotoxigenic E.coli (ETEC) Not Detected (NotDetected); Giardia lamblia PCR Not Detected (NotDetected); Norovirus GI/GII PCR Not Detected (NotDetected); Plesiomonas shigelloides PCR Not Detected (NotDetected); Rotavirus A PCR Not Detected (NotDetected); Salmonella PCR Not Detected (NotDetected); Sapovirus PCR Not Detected (NotDetected); Shiga-like Toxin E.coli (STEC) Not Detected (NotDetected); Shigella/Enteroinvasive E.coli Not Detected (NotDetected); Vibrio cholerae PCR Not Detected (NotDetected); Vibrio species PCR Not Detected (NotDetected); Yersinia enterocolitica PCR Not Detected (NotDetected)
[2023-04-08] MEDS: POTASSIUM CHLORIDE CRTAB 20 MEQ TABCR PO SCH ×3 (10:50→20:42)
--- NOTE | 2023-04-08 11:12 | Gastroenterology Progress Note ---
Date of Service April 08, 2023 Assessment & Plan (1) Colonic diverticular abscess: (2) Diarrhea: Plan 1. Continue antibiotics, regular diet. 2. Appreciate surgical service input. Pt discussed surgical options w Dr. Arnie Foss - pt reluctant to undergo surgery due to possibility of need for ostomy. 3. If > 3 loose/liquid BMs/day then would recheck for C-diff. 4. GI will sign off. Please notify us of new/worsening GI issues. Admission and Anticipated Discharge Date Admission Date: April 06, 2023 Supervising Physician Co-Signing Physician Notes Attending attestation I have seen, examined this patient, and agree with the findings and above by our mid-level provider IVAN Grubbs, with the following additions: recurrent abscess, unlikely to improve without intervention. C/s surgery, iv abx Advance diet and symptomatic care Subjective Pt feels "a little better," able to eat a little more food. No nausea. Vomited once yesterday because she gagged when trying to swallow a pill, otherwise no vomiting. Has mild lower abd pressure, "near the bladder," otherwise no significant abdominal pain. 2 loose BMs thus far today. GI path (-) yesterday, C-Diff (-) in Feb and on 03/25/23. Review of Systems Review of Systems: ROS: Gen: + weakness/fatigue - improving. No fevers Eyes: No eye redness, or pain, no recent vision changes Resp: No SOB, no cough Cardio: No palpitations/irregular beats, no chest pain GI: As per HPI, otherwise (-) : Denies pain on urination Skin: No jaundice, itching or new rashes Physical Exam Constitutional: WD/WN, vitals as above Eyes: PERRL, conjunctivae normal, anicteric sclerae ENMT: external ear and nose normal, oropharynx normal Neck: trachea midline, no thyromegaly Respiratory: normal respiratory effort, lungs clear to auscultation Cardiovascular: RRR, no murmur, no edema Gastrointestinal (Abdomen): soft, non distended, mild suprapubic tenderness Musculoskeletal: no cyanosis or clubbing, extremities motor strength 5/5 Skin: sl pale, no rashes, no lesions Neurologic: PERRL, EOMI, accommodation nl, no face palsy, no dysarthria Psychiatric: A+Ox3, euthymic affect Lymphatic: no cervical or axillary lymphadenopathy Results & Data Vital Signs (Past 12 Hours) Vital Signs Temp Pulse Pulse Resp BP Pulse Ox O2 Del Method 04/08/23 07:54 36.8 C 94 H 16 112/64 93 Room Air 04/08/23 07:28 80 04/08/23 03:38 36.8 C 91 H 16 113/70 95 Room Air Laboratory Results Na 141, K 3.4, CL 110, CO2 25, BUN 3, Cr 0.49, glucose 90. Diagnostic Findings CTAP w/o IV contrast on 04/06/23: 1. Significantly suboptimal examination without oral and IV contrast. 2. Wall thickening of the sigmoid colon with surrounding inflammation at the site of previously characterized diverticulitis is similar to the 03/28/2023 examination. 3. A multiloculated intramural abscess is again seen involving the sigmoid colon. This is difficult to characterize/delineate without IV contrast, but appears modestly decreased in size from 03/28/2023. See above. 4. No intraperitoneal free air is seen. 5. Trace pleural effusions.
--- NOTE | 2023-04-08 13:29 | Hospitalist Progress Note ---
Date of Service April 08, 2023 Assessment & Plan (1) Generalized weakness: Plan: per Dr. Mcnulty's notes with addendum: 77-year-old female with past med significant for hyperlipidemia, asthma mild persistent, chronic sinusitis, history of CAD, patent foramen ovale, atrial septal aneurysm, GERD, diverticulitis of sigmoid colon, osteoporosis, aspirin contraindicated, presents with nausea and weakness and not feeling well. Patient had prolonged antibiotic course for diverticular abscess. She was admitted initially on February 10 at [facility] for diverticular abscess treated with Vanco cefepime and metronidazole and she was discharged on cefdinir and metronidazole. She followed with PCP for abdominal pain March 03. CT scan showed diffuse diverticulitis with abscess abscess measuring 3.2 x 2.0 x 3.4 cm. Patient was admitted to [facility]. CT scan also showed some nonspecific GALLBLADDER wall thickening. She had cholecystectomy on 03/08. 03/12/23 had worsening nausea and abdominal pain and repeat his CAT scan showed increasing diverticular abscess to 2.6 x 4.7 cm. General surgery consulted and advised for transfer to [place] for IR drainage. At [place] IR drainage was deemed unsuitable due to its intramural location. ID was consulted. ID recommended IV Invanz. Had PICC line and was discharged. ID recommended Invanz for 21 days. Again she was admitted [facility] on 03/22/23 for weakness and abdominal pain. ID was consulted and Invanz was changed to Cipro and Flagyl due to nausea. As Patient having persistent nausea and poor appetite on March 28 GI was consulted. Repeat CT scan showed increased size of abscess. GI recommended advanced endoscopist for possible drainage. And she was transferred to [place] on March 29. At [place] antibiotics were changed Zosyn after testing for allergy. GI attempted lower endoscopy / endoscopic ultrasound and flexible sigmoidoscopy on 04/01/23 but was not completed due to severe diverticulosis in the sigmoid colon with narrowing of colon and spasm. IR attempted percutaneous drainage but this was aborted as a repeat CT demonstrated no abscess to drain. It was thought that abscess may have self drained after manipulation by GI. Zosyn was switched to p.o. Cipro and Augmentin and was stable to discharge 2022 for total of 9 more days of p.o. antibiotics. Patient currently thinks her abdominal infection is getting better. Yesterday she had episode of diarrhea. But today she did not move her bowels. Was feeling nauseous poor appetite. Having weakness.. Not feeling well. Denies any fevers. No chest pain or shortness of breath. No cough. No runny nose or sore throat. No headache. Hemodynamically stable. GENERALIZED WEAKNESS NAUSEA POOR APPETITE DIVERTICULAR ABSCESS On antibiotics for long time for diverticular abscess Currently on p.o. Augmentin and p.o. Cipro for total of 9 days starting on April 03/2023 Patient thinks her infection is getting better Had an episode of diarrhea yesterday Today did not move her bowels Hemodynamically stable No leukocytosis Labs showed magnesium of 1.0 Will replace magnesium Gentle fluids Follow repeat labs in a.m. Tachycardic on presentation currently improved Getting KUB Monitor in the hospital 04/07 CT abdomen pelvis : 1. Significantly suboptimal examination without oral and IV contrast. 2. Wall thickening of the sigmoid colon with surrounding inflammation at the site of previously characterized diverticulitis is similar to the 03/28/2023 examination. 3. A multiloculated intramural abscess is again seen involving the sigmoid colon. This is difficult to characterize/delineate without IV contrast, but appears modestly decreased in size from 03/28/2023. See above. 4. No intraperitoneal free air is seen. 5. Trace pleural effusions. 6. Additional findings as above. 04/08 Nausea and pain seems to be improving gradually CT abdomen still showing interval abscess although decreased in size Electrolytes still low, management per below GI consulted-no endoscopic intervention at this point General surgery consulted-recommend possible colectomy if without improvement on Tuesday HYPOKALEMIA, HYPOCALCEMIA, HYPOPHOSPHATEMIA, HYPOMAGNESEMIA Supplements ordered Nephrology also consulted ABNORMAL EKG Nonspecific ST-T wave changes Denies cardiac symptoms History of CAD On statin, beta-elisabeth GERD Protonix Hyperlipidemia On statin History of asthma Home inhalers On montelukast Right kidney lesion On the CAT scan previous admission Needs follow-up DVT prophylaxis Lovenox Disposition Anticipate discharge to home when medically stable PT and OT evaluation Admission and Anticipated Discharge Date Admission Date: April 06, 2023 Subjective Follow-up for nausea, diverticular abscess, etc. Seen sitting up in bed, comfortable, not in distress Good spirits States she feels okay overall today Had nausea after taking a pill last night but that has since resolved No abdominal pain, fevers or chills No other new symptom Review of Systems Review of Systems: all noted and negative except for above Physical Exam Physical Exam: General- oriented x 3, not in distress, speaks in sentences with no effort or accessory muscle use Eyes- anicteric Neck- no JVD Lungs- clear BS BL Heart- normal rate, regular rhythm; no murmurs Abdomen- normal bowel sounds, nondistended, soft, nontender Extremities- no pretibial edema, no calf tenderness Neuro- alert, oriented x 3; no gross focal neurologic deficits Skin- warm & dry Results & Data Results & Data Vital Signs (Past 12 Hours) Vital Signs Temp Pulse Pulse Resp BP Pulse Ox O2 Del Method 04/08/23 07:54 36.8 C 94 H 16 112/64 93 Room Air 04/08/23 07:28 80 04/08/23 03:38 36.8 C 91 H 16 113/70 95 Room Air all noted and reviewed including below
--- NOTE | 2023-04-08 14:05 | Nephrology Progress Note ---
Date of Service April 08, 2023 Assessment & Plan (1) Electrolyte disturbance: Plan: mild hypokalemia, mild hypocalcemia, mild /recurrent hypomagnesemia and hypophosphatemia -repeat RAMÓN labs show ongoing PTH elevation and adequate D stores -daily bmp, mag, phos -continue moderate dose D3 (25 OH D levels reasonably high despite low Ca) >held neutraphos 2 tabs qid >had extra midday dose of K today; else continue K 20 mEq po bid -f/u recs from warning analyst c/s for high phos, high K foods and dietary supplement/protein shake monitor for worse N w/ above po supplements >> can try K granules or solution if pill gagging continues Will sign off; pls call if ? No OP nephro f/u required Do recommend PCP monitor bmp, phos, mag weekly x 3 after hospital d/c Admission and Anticipated Discharge Date Admission Date: April 06, 2023 Subjective doing better at po > had roast beef and potatoes yesterday. gags on pills and had emesis x 1 w/ thsi yesterday. no abd pain or diarhea Review of Systems 2 Review of Systems: All systems reviewed & are unremarkable except as noted in Subjective Physical Exam 2 Constitutional: well developed, well nourished, + frail appearing and cooperative; no acute distress Eyes: EOM intact bilaterally ENMT: Ears: no external ear abnormality Nose: no external nose abnormality Mouth: + dry oral mucous membranes Neck: no nuchal rigidity Respiratory: normal respiratory effort Auscultation: + diminished lung sounds and + rhonchi (but many fewer today) Gastrointestinal (Abdomen): Inspection/Auscultation: normal bowel sounds P ercussion/Palpation: abdomen soft; abdomen nontender Musculoskeletal: Extremities: strength 5/5 throughout Skin: no rashes, warm and dry Psychiatric: Orientation: alert and oriented x 3 Results & Data Vital Signs (Past 12 Hours) Vital Signs Temp Pulse Pulse Resp BP Pulse Ox O2 Del Method 04/08/23 07:54 36.8 C 94 H 16 112/64 93 Room Air 04/08/23 07:28 80 04/08/23 03:38 36.8 C 91 H 16 113/70 95 Room Air Laboratory Results 04/07/23 05:31 04/08/23 05:05
[2023-04-08] MEDS: ROSUVASTATIN CALCIUM 20 MG TAB PO SCH (20:42)
[2023-04-08] MEDS ORDERED: NSS + 20MEQ KCL 20 MEQ/1,000 ML BAG IV ONE (20:47)
[2023-04-08] MEDS ORDERED: ACETAMINOPHEN 325 MG TAB PO STA (20:47)
--- NOTE | 2023-04-08 21:08 | Communication Note ---
Date of Service: April 08, 2023 Patient with diarrhea without unusual abdominal pain. Noted to be febrile and tachycardic. AP Diarrhea rule out C. difficile C. difficile sample from a.m. stool CS IV Flagyl 1 dose for now for possible C. difficile given possible sepsis Oral vancomycin course C. difficile positive.
[2023-04-08] MEDS ORDERED: metroNIDAZOLE 500 MG/100 ML BAG IV STA (21:18)
[2023-04-08] MEDS: MAGNESIUM SULFATE / D5W 1 GM/100 ML BAG IV SCH (23:39)
[2023-04-09] MEDS ORDERED: LOPERAMIDE HCL 2 MG CAP PO PRN (00:22)
[2023-04-09] MEDS: MAGNESIUM SULFATE / D5W 1 GM/100 ML BAG IV SCH (01:40)
[2023-04-09] MEDS: PROMETHAZINE HCL 6.25 MG in SODIUM CHLORIDE 0.9% 50 ML IV PRN ×2 (05:42→18:24)
[2023-04-09 06:28] LABS: Albumin Globulin Ratio 1.2 (0.9-2); Albumin Level 2.9 gm/dl (3.4-5.0); Bilirubin,Total 0.6 mg/dl (0.2-1.0); Calcium 7.1 mg/dl (8.6-10.3); Globulin 2.5 gm/dl (2.5-4.0); Phosphorus 2.2 mg/dl (2.5-4.9); Potassium 3.8 mmol/L (3.5-5.1); Total Protein 5.4 gm/dl (6.0-8.3)
--- NOTE | 2023-04-09 07:50 | Surgery Progress Note ---
Date of Service April 09, 2023 Assessment & Plan (1) Colonic diverticular abscess: Plan: Trying to decide whether or not to proceed with surgery hopefully she will reach a decision whether or not to proceed with it and if she decides to proceed that we will put her on bowel prep a day or 2 before anticipated call resection Admission and Anticipated Discharge Date Admission Date: April 06, 2023 Subjective Feels a little bit nauseated has some pain on the left side of her belly she continues to move her bowels which she states is more liquid in nature She is tolerating a diet although she would like to eat something more She is still wishy-washy about proceeding with surgery Physical Exam Physical Exam: Laying comfortably in bed with no acute issues Well-hydrated oral mucosa moist The abdomen is completely benign minimal to no guarding in the left lower quadrant Results & Data Vital Signs (Past 12 Hours) Vital Signs Temp Pulse Pulse Resp BP Pulse Ox O2 Del Method 04/09/23 07:27 85 04/09/23 03:55 37 C 90 18 114/71 96 Room Air 04/09/23 02:02 104 H 04/08/23 23:21 36.8 C 94 H 18 102/67 94 Room Air
[2023-04-09] MEDS: PANTOprazole 40 MG TAB PO SCH ×2 (08:13→20:18)
[2023-04-09] MEDS: AMOXICILLIN/CLAVULANATE 875 MG TAB PO SCH ×2 (08:14→20:18)
[2023-04-09] MEDS: CIPROFLOXACIN 500 MG TAB PO SCH ×2 (08:14→20:17)
[2023-04-09] MEDS: ADVANCED PROBIOTIC 1250 MG CAPSULE PO SCH (08:15)
[2023-04-09] MEDS: ASCORBIC ACID 500 MG TAB PO SCH (08:15)
[2023-04-09] MEDS: GLUCOSAMINE SULFATE 500 MG CAP PO SCH (08:16)
[2023-04-09] MEDS: CHOLECALCIFEROL 1,000 UNITS 25 MCG TAB PO SCH (08:16)
[2023-04-09] MEDS: MONTELUKAST SODIUM 10 MG TABLET PO SCH (08:16)
[2023-04-09] MEDS: POTASSIUM CHLORIDE CRTAB 20 MEQ TABCR PO SCH ×3 (08:17→20:18)
[2023-04-09] MEDS: UMECLIDINIUM/VILANTEROL 62.5/25MCG 7 PUFFS/INHALER INH SCH (08:18)
[2023-04-09] MEDS: MULTIVITAMIN TAB PO SCH (08:18)
[2023-04-09] MEDS: FLUTICASONE FUROATE 200MCG 14 PUFFS/INHALER INH SCH (08:18)
[2023-04-09] MEDS: METOPROLOL SUCC 25MG EXT REL TAB PO SCH (08:19)
[2023-04-09] MEDS: ENOXAPARIN INJ 40 MG/0.4 ML SYR SQ SCH (08:19)
[2023-04-09 10:19] LABS: BUN Creatinine Ratio 7.7 (10-20); Creatinine Clr Calc Pharmacy 82.2 ml/min; Est GFR (African American) 107.6 ml/min; Est GFR (Non-African American) 92.8 ml/min
--- NOTE | 2023-04-09 19:03 | Hospitalist Progress Note ---
Date of Service April 09, 2023 Assessment & Plan (1) Generalized weakness: Plan: per Dr. Mcnulty's notes with addendum: 77-year-old female with past med significant for hyperlipidemia, asthma mild persistent, chronic sinusitis, history of CAD, patent foramen ovale, atrial septal aneurysm, GERD, diverticulitis of sigmoid colon, osteoporosis, aspirin contraindicated, presents with nausea and weakness and not feeling well. Patient had prolonged antibiotic course for diverticular abscess. She was admitted initially on February 10 at [facility] for diverticular abscess treated with Vanco cefepime and metronidazole and she was discharged on cefdinir and metronidazole. She followed with PCP for abdominal pain March 03. CT scan showed diffuse diverticulitis with abscess abscess measuring 3.2 x 2.0 x 3.4 cm. Patient was admitted to [facility]. CT scan also showed some nonspecific GALLBLADDER wall thickening. She had cholecystectomy on 03/08. 03/12/23 had worsening nausea and abdominal pain and repeat his CAT scan showed increasing diverticular abscess to 2.6 x 4.7 cm. General surgery consulted and advised for transfer to [place] for IR drainage. At [place] IR drainage was deemed unsuitable due to its intramural location. ID was consulted. ID recommended IV Invanz. Had PICC line and was discharged. ID recommended Invanz for 21 days. Again she was admitted [facility] on 03/22/23 for weakness and abdominal pain. ID was consulted and Invanz was changed to Cipro and Flagyl due to nausea. As Patient having persistent nausea and poor appetite on March 28 GI was consulted. Repeat CT scan showed increased size of abscess. GI recommended advanced endoscopist for possible drainage. And she was transferred to [place] on March 29. At [place] antibiotics were changed Zosyn after testing for allergy. GI attempted lower endoscopy / endoscopic ultrasound and flexible sigmoidoscopy on 04/01/23 but was not completed due to severe diverticulosis in the sigmoid colon with narrowing of colon and spasm. IR attempted percutaneous drainage but this was aborted as a repeat CT demonstrated no abscess to drain. It was thought that abscess may have self drained after manipulation by GI. Zosyn was switched to p.o. Cipro and Augmentin and was stable to discharge 2022 for total of 9 more days of p.o. antibiotics. Patient currently thinks her abdominal infection is getting better. Yesterday she had episode of diarrhea. But today she did not move her bowels. Was feeling nauseous poor appetite. Having weakness.. Not feeling well. Denies any fevers. No chest pain or shortness of breath. No cough. No runny nose or sore throat. No headache. Hemodynamically stable. GENERALIZED WEAKNESS NAUSEA POOR APPETITE DIVERTICULAR ABSCESS On antibiotics for long time for diverticular abscess Currently on p.o. Augmentin and p.o. Cipro for total of 9 days starting on April 03/2023 Patient thinks her infection is getting better Had an episode of diarrhea yesterday Today did not move her bowels Hemodynamically stable No leukocytosis Labs showed magnesium of 1.0 Will replace magnesium Gentle fluids Follow repeat labs in a.m. Tachycardic on presentation currently improved Getting KUB Monitor in the hospital 04/07 CT abdomen pelvis : 1. Significantly suboptimal examination without oral and IV contrast. 2. Wall thickening of the sigmoid colon with surrounding inflammation at the site of previously characterized diverticulitis is similar to the 03/28/2023 examination. 3. A multiloculated intramural abscess is again seen involving the sigmoid colon. This is difficult to characterize/delineate without IV contrast, but appears modestly decreased in size from 03/28/2023. See above. 4. No intraperitoneal free air is seen. 5. Trace pleural effusions. 6. Additional findings as above. 04/08 Nausea and pain seems to be improving gradually CT abdomen still showing interval abscess although decreased in size Electrolytes still low, management per below GI consulted-no endoscopic intervention at this point General surgery consulted-recommend possible colectomy if without improvement on Monday 04/09 still having some symptoms patient and family interested in proceeding with surgery will request Gen Surg to discuss with patient and family HYPOKALEMIA, HYPOCALCEMIA, HYPOPHOSPHATEMIA, HYPOMAGNESEMIA Supplements ordered Nephrology also consulted ABNORMAL EKG Nonspecific ST-T wave changes Denies cardiac symptoms History of CAD On statin, beta-elisabeth GERD Protonix Hyperlipidemia On statin History of asthma Home inhalers On montelukast Right kidney lesion On the CAT scan previous admission Needs follow-up DVT prophylaxis Lovenox Disposition Anticipate discharge to home when medically stable PT and OT evaluation Admission and Anticipated Discharge Date Admission Date: April 06, 2023 Subjective ff up for diverticular abscess, etc seen resting in bed, not in distress has intermittent LLQ discomfort not much nausea no other symptoms Physical Exam Physical Exam: General- oriented x 3, not in distress, speaks in sentences with no effort or accessory muscle use Eyes- anicteric Neck- no JVD Lungs- clear breath sounds bilaterally Heart- normal rate, regular rhythm; no murmurs Abdomen- normal bowel sounds, nondistended, soft, no tenderness Extremities- no pretibial edema, no calf tenderness Neuro- alert, oriented x 3; no gross focal neurologic deficits Skin- warm & dry Results & Data Results & Data Vital Signs (Past 12 Hours) Vital Signs Temp Pulse Pulse Resp BP Pulse Ox O2 Del Method 04/09/23 16:11 87 04/09/23 15:19 37.2 C 97 H 20 127/82 96 Room Air 04/09/23 11:20 36.9 C 90 18 115/73 93 Room Air 04/09/23 09:38 Room Air 04/09/23 07:56 36.7 C 86 20 118/71 94 Room Air 04/09/23 07:27 85 all noted and reviewed including below
[2023-04-09] MEDS: ROSUVASTATIN CALCIUM 20 MG TAB PO SCH (20:18)
[2023-04-10 06:35] LABS: Albumin Globulin Ratio 1.1 (0.9-2); Albumin Level 2.9 gm/dl (3.4-5.0); BUN Creatinine Ratio 10.2 (10-20); Bilirubin,Total 0.7 mg/dl (0.2-1.0); Calcium 7.2 mg/dl (8.6-10.3); Creatinine Clr Calc Pharmacy 85.9 ml/min; Est GFR (African American) 109.7 ml/min; Est GFR (Non-African American) 94.6 ml/min; Globulin 2.6 gm/dl (2.5-4.0); Magnesium 1.5 mg/dl (1.7-2.4); Phosphorus 1.6 mg/dl (2.5-4.9); Potassium 4.3 mmol/L (3.5-5.1); Total Protein 5.5 gm/dl (6.0-8.3)
[2023-04-10] MEDS: POTASSIUM CHLORIDE CRTAB 20 MEQ TABCR PO SCH ×3 (07:28→20:24)
[2023-04-10] MEDS: AMOXICILLIN/CLAVULANATE 875 MG TAB PO SCH ×2 (07:28→20:24)
[2023-04-10] MEDS: PANTOprazole 40 MG TAB PO SCH ×2 (07:29→20:23)
[2023-04-10] MEDS: GLUCOSAMINE SULFATE 500 MG CAP PO SCH (07:29)
[2023-04-10] MEDS: CIPROFLOXACIN 500 MG TAB PO SCH ×2 (07:29→20:24)
[2023-04-10] MEDS: METOPROLOL SUCC 25MG EXT REL TAB PO SCH (07:30)
[2023-04-10] MEDS: MULTIVITAMIN TAB PO SCH (07:30)
[2023-04-10] MEDS: ASCORBIC ACID 500 MG TAB PO SCH (07:30)
[2023-04-10] MEDS: CHOLECALCIFEROL 1,000 UNITS 25 MCG TAB PO SCH (07:30)
[2023-04-10] MEDS: MONTELUKAST SODIUM 10 MG TABLET PO SCH (07:31)
[2023-04-10] MEDS: ADVANCED PROBIOTIC 1250 MG CAPSULE PO SCH (07:31)
[2023-04-10] MEDS: ENOXAPARIN INJ 40 MG/0.4 ML SYR SQ SCH (07:32)
[2023-04-10] MEDS: FLUTICASONE FUROATE 200MCG 14 PUFFS/INHALER INH SCH (07:32)
[2023-04-10] MEDS: UMECLIDINIUM/VILANTEROL 62.5/25MCG 7 PUFFS/INHALER INH SCH (07:32)
[2023-04-10] MEDS ORDERED: POTASSIUM PHOS 3 MMOL/1 ML INFUSION IV STA (08:54)
[2023-04-10] MEDS ORDERED: POTASSIUM PHOSPHATE 21 MMOL in SODIUM CHLORIDE 0.9% 500 ML IV ONE (09:00)
[2023-04-10] MEDS: MAGNESIUM SULFATE / D5W 1 GM/100 ML BAG IV SCH ×2 (09:27→11:11)
--- NOTE | 2023-04-10 13:11 | Surgery Progress Note ---
Date of Service April 10, 2023 Assessment & Plan (1) Colonic diverticular abscess: Plan: Patient has been dealing with a diverticular problem with intramural abscess for approximately 2 months making very little headway and its resolution she has been very hesitant to consider any surgical intervention since she has had bad experiences colostomy and her family but at this time considering the side effects of long-term antibiotic including the diarrhea and anemia and associated with them in the nausea she is leaning toward surgery still afraid of ending up with a colostomy I had a long talk with her daughter Malathi on Tuesday at [phone] regardi ng these issues pacifically addressing the issue of possible colostomy and my feeling that was expressed to her would be that if she is moving her bowels and and we can properly prep her for colon resection then the ends of colostomy would be very low I also discussed the situation with the medical service specifically Dr. Jacobs The patient and her this morning when to proceed with surgery I did express to them that DR Abe Alegre would be doing the surgery Regarding the type and whether it is Tuesday or Tuesday will be left up to her but today we will start her on more liquid diet in anticipation of the incoming surgery I would also recommend a chemical bowel prep but the patient states that she has a hard trouble swallowing certain size pills Admission and Anticipated Discharge Date Admission Date: April 06, 2023 Subjective Patient is ambulating with minimal discomfort the patient is moving her bowels it is liquid sometimes some foreign particles She continues to have occasional nausea She is tolerating a diet Her is at bedside this morning Physical Exam Physical Exam: She is moving around without any issues in fact she is ambulated from the bathroom to her bed without any assistance Patient's abdominal exam is completely benign at this time Results & Data Vital Signs (Past 12 Hours) Vital Signs Temp Pulse Pulse Resp BP Pulse Ox O2 Del Method 04/10/23 11:42 37.1 C 86 20 104/68 96 Room Air 04/10/23 08:14 Room Air 04/10/23 07:51 36.8 C 95 H 20 118/77 95 Room Air 04/10/23 07:07 94 H 04/10/23 03:42 36.9 C 101 H 16 130/80 93 Room Air
--- NOTE | 2023-04-10 14:17 | Hospitalist Progress Note ---
Date of Service April 10, 2023 Assessment & Plan (1) Generalized weakness: Plan: per Dr. Mcnulty's notes with addendum: 77-year-old female with past med significant for hyperlipidemia, asthma mild persistent, chronic sinusitis, history of CAD, patent foramen ovale, atrial septal aneurysm, GERD, diverticulitis of sigmoid colon, osteoporosis, aspirin contraindicated, presents with nausea and weakness and not feeling well. Patient had prolonged antibiotic course for diverticular abscess. She was admitted initially on February 10 at [facility] for diverticular abscess treated with Vanco cefepime and metronidazole and she was discharged on cefdinir and metronidazole. She followed with PCP for abdominal pain March 03. CT scan showed diffuse diverticulitis with abscess abscess measuring 3.2 x 2.0 x 3.4 cm. Patient was admitted to [facility]. CT scan also showed some nonspecific GALLBLADDER wall thickening. She had cholecystectomy on 03/08. 03/12/23 had worsening nausea and abdominal pain and repeat his CAT scan showed increasing diverticular abscess to 2.6 x 4.7 cm. General surgery consulted and advised for transfer to [place] for IR drainage. At [place] IR drainage was deemed unsuitable due to its intramural location. ID was consulted. ID recommended IV Invanz. Had PICC line and was discharged. ID recommended Invanz for 21 days. Again she was admitted [facility] on 03/22/23 for weakness and abdominal pain. ID was consulted and Invanz was changed to Cipro and Flagyl due to nausea. As Patient having persistent nausea and poor appetite on March 28 GI was consulted. Repeat CT scan showed increased size of abscess. GI recommended advanced endoscopist for possible drainage. And she was transferred to [place] on March 29. At [place] antibiotics were changed Zosyn after testing for allergy. GI attempted lower endoscopy / endoscopic ultrasound and flexible sigmoidoscopy on 04/01/23 but was not completed due to severe diverticulosis in the sigmoid colon with narrowing of colon and spasm. IR attempted percutaneous drainage but this was aborted as a repeat CT demonstrated no abscess to drain. It was thought that abscess may have self drained after manipulation by GI. Zosyn was switched to p.o. Cipro and Augmentin and was stable to discharge 2022 for total of 9 more days of p.o. antibiotics. Patient currently thinks her abdominal infection is getting better. Yesterday she had episode of diarrhea. But today she did not move her bowels. Was feeling nauseous poor appetite. Having weakness.. Not feeling well. Denies any fevers. No chest pain or shortness of breath. No cough. No runny nose or sore throat. No headache. Hemodynamically stable. GENERALIZED WEAKNESS NAUSEA POOR APPETITE DIVERTICULAR ABSCESS On antibiotics for long time for diverticular abscess Currently on p.o. Augmentin and p.o. Cipro for total of 9 days starting on April 03/2023 Patient thinks her infection is getting better Had an episode of diarrhea yesterday Today did not move her bowels Hemodynamically stable No leukocytosis Labs showed magnesium of 1.0 Will replace magnesium Gentle fluids Follow repeat labs in a.m. Tachycardic on presentation currently improved Getting KUB Monitor in the hospital 04/07 CT abdomen pelvis : 1. Significantly suboptimal examination without oral and IV contrast. 2. Wall thickening of the sigmoid colon with surrounding inflammation at the site of previously characterized diverticulitis is similar to the 03/28/2023 examination. 3. A multiloculated intramural abscess is again seen involving the sigmoid colon. This is difficult to characterize/delineate without IV contrast, but appears modestly decreased in size from 03/28/2023. See above. 4. No intraperitoneal free air is seen. 5. Trace pleural effusions. 6. Additional findings as above. 04/08 Nausea and pain seems to be improving gradually CT abdomen still showing interval abscess although decreased in size Electrolytes still low, management per below GI consulted-no endoscopic intervention at this point General surgery consulted-recommend possible colectomy if without improvement on Tuesday 04/10 Dr. Calloway discussed with patient's daughter re: Colectomy patient and family will discuss re: surgery HYPOKALEMIA, HYPOCALCEMIA, HYPOPHOSPHATEMIA, HYPOMAGNESEMIA Supplements ordered Nephrology also consulted ABNORMAL EKG Nonspecific ST-T wave changes Denies cardiac symptoms History of CAD On statin, beta-elisabeth GERD Protonix Hyperlipidemia On statin History of asthma Home inhalers On montelukast Right kidney lesion On the CAT scan previous admission Needs follow-up DVT prophylaxis Lovenox Disposition Anticipate discharge to home when medically stable PT and OT evaluation Admission and Anticipated Discharge Date Admission Date: April 06, 2023 Subjective ff up for diverticular abscess, etc seen resting in bed, comfortable states she feels off today has some lower abdominal discomfort no nausea no diarrhea no other symptoms Review of Systems Review of Systems: all noted and negative except for above Physical Exam Physical Exam: General- oriented x 3, not in distress, speaks in sentences with no effort or accessory muscle use Eyes- anicteric Neck- no JVD Lungs- clear BS BL Heart- normal rate, regular rhythm; no murmurs Abdomen- normal bowel sounds, nondistended, soft, nontender Extremities- no pretibial edema, no calf tenderness Neuro- alert, oriented x 3; no gross focal neurologic deficits Skin- warm & dry Results & Data Results & Data Vital Signs (Past 12 Hours) Vital Signs Temp Pulse Pulse Resp BP Pulse Ox O2 Del Method 04/10/23 11:42 37.1 C 86 20 104/68 96 Room Air 04/10/23 08:14 Room Air 04/10/23 07:51 36.8 C 95 H 20 118/77 95 Room Air 04/10/23 07:07 94 H 04/10/23 03:42 36.9 C 101 H 16 130/80 93 Room Air all noted and reviewed including below
[2023-04-10] MEDS: PROMETHAZINE HCL 6.25 MG in SODIUM CHLORIDE 0.9% 50 ML IV PRN ×2 (14:35→23:10)
[2023-04-10] MEDS: ROSUVASTATIN CALCIUM 20 MG TAB PO SCH (20:23)
[2023-04-11 05:01] LABS: BUN Creatinine Ratio 10.9 (10-20); Calcium 7.3 mg/dl (8.6-10.3); Creatinine Clr Calc Pharmacy 91.6 ml/min; Est GFR (Non-African American) 96.6 ml/min; Magnesium 1.8 mg/dl (1.7-2.4); Phosphorus 2.2 mg/dl (2.5-4.9); Potassium 4.6 mmol/L (3.5-5.1)
[2023-04-11] MEDS: ASCORBIC ACID 500 MG TAB PO SCH (09:41)
[2023-04-11] MEDS: ADVANCED PROBIOTIC 1250 MG CAPSULE PO SCH (09:42)
[2023-04-11] MEDS: MONTELUKAST SODIUM 10 MG TABLET PO SCH (09:43)
[2023-04-11] MEDS: GLUCOSAMINE SULFATE 500 MG CAP PO SCH (09:43)
[2023-04-11] MEDS: ENOXAPARIN INJ 40 MG/0.4 ML SYR SQ SCH (09:43)
[2023-04-11] MEDS: PANTOprazole 40 MG TAB PO SCH ×2 (09:43→20:03)
[2023-04-11] MEDS: MULTIVITAMIN TAB PO SCH (09:44)
[2023-04-11] MEDS: CIPROFLOXACIN 500 MG TAB PO SCH ×2 (09:44→20:03)
[2023-04-11] MEDS: AMOXICILLIN/CLAVULANATE 875 MG TAB PO SCH ×2 (09:44→20:04)
[2023-04-11] MEDS: UMECLIDINIUM/VILANTEROL 62.5/25MCG 7 PUFFS/INHALER INH SCH (09:45)
[2023-04-11] MEDS: FLUTICASONE FUROATE 200MCG 14 PUFFS/INHALER INH SCH (09:45)
[2023-04-11] MEDS: CHOLECALCIFEROL 1,000 UNITS 25 MCG TAB PO SCH (09:45)
[2023-04-11] MEDS: METOPROLOL SUCC 25MG EXT REL TAB PO SCH (09:45)
[2023-04-11] MEDS ORDERED: bisacodyL 5 MG TABEC PO STA (13:02)
[2023-04-11] MEDS ORDERED: NEOMYCIN SULFATE 500 MG TAB PO SCH (14:00)
[2023-04-11] MEDS: ERYTHROMYCIN DELAYED RELEASE 250 MG CAP PO SCH ×3 (15:09→22:26)
[2023-04-11] MEDS ORDERED: SODIUM CHLORIDE 0.65% NA SOLN 45 ML (OCEAN) PRN (15:13)
--- NOTE | 2023-04-11 15:32 | Anesthesiology Consultation ---
Date of Service April 11, 2023 Assessment & Plan Chart Review Chart Review: Acceptable Risk for Surgery and Patient NOT seen in Pre Admission Testing Consults Requested none History Surgery Operation Date: 04/12/23 12:50 Proposed Procedures p Exploratory Laparoscopy, Possible Laparoscopic Colectomy, Possible Open, Possible Colostomy - Lili Alegre DO s Possible Colonoscopy - Lili Alegre DO Height/Weight Height: 5 ft 2 in Weight: 63.1 kg Allergies Allergy/AdvReac Type Severity Reaction Status Date / Time amoxicillin Allergy Severe Itching Unverified 04/05/23 20:34 aspirin Allergy Mild wheeze Verified 04/05/23 20:34 Medications Home Medications Medication Instructions Recorded Confirmed Last Taken multivitamin 1 tab PO DAILY ##0 11/12/10 04/05/23 02/10/23 omega 6-zun-hms-fish oil 1,000 mg 1 cap PO DAILY ##0 11/12/10 04/05/23 03/28/23 (120 mg-180 mg) capsule (Fish Oil) cholecalciferol (vitamin D3) 25 1,000 unit PO DAILY 01/25/19 04/05/23 03/28/23 mcg (1,000 unit) capsule (Vitamin D3) metoprolol succinate 25 mg 25 mg PO QAM 01/25/19 04/05/23 03/28/23 tablet,extended release 24 hr ascorbic acid (vitamin C) 250 mg 250 mg PO QAM 06/01/19 04/05/23 03/28/23 chewable tablet (Vitamin C) fluticasone propionate 50 1 spray intranasal DAILY PRN 06/01/19 04/05/23 02/10/23 mcg/actuation nasal Allergy Symptoms spray,suspension (Flonase Allergy Relief) glucosamine-chondroitin 250 mg-200 1 tab PO QAM 06/01/19 04/05/23 02/10/23 mg tablet (Osteo Bi-Flex) denosumab 60 mg/mL subcutaneous 60 mg subcut .[id number] 02/10/23 04/05/23 3 Months Ago syringe (Prolia) ~11/10/22 fluticasone fur. 200 mcg-umeclid 1 inh inhalation PM 02/10/23 04/05/23 04/04/23 62.5 mcg-vilant 25 mcg inhalat.powder (Trelegy Ellipta) rosuvastatin 20 mg tablet 20 mg PO HS 02/10/23 04/05/23 04/01/23 Lactobacillus acidophilus 1 1,000 mmu cells PO DAILY #7 caps 02/14/23 04/05/23 03/28/23 billion cell capsule cholecalciferol (vitamin D3) 125 5,000 unit PO QAM 30 days #30 tabs 03/29/23 04/05/23 03/28/23 mcg (5,000 unit) tablet pantoprazole 40 mg tablet,delayed 40 mg PO BID 30 days #60 tabs 03/29/23 04/05/23 03/28/23 release amoxicillin 875 mg-potassium 1 tab PO BID 04/06/23 04/06/23 Unknown clavulanate 125 mg tablet ciprofloxacin HCl 500 mg tablet 500 mg PO BID 04/06/23 04/06/23 Unknown montelukast 10 mg tablet 10 mg PO DAILY 04/06/23 04/06/23 Unknown Active Medications Generic Name Dose Route Start Last Admin Trade Name Sharifq PRN Reason Stop Dose Admin Acetaminophen 650 mg 04/06/23 04:13 04/08/23 20:41 Acetaminophen 325 Mg Tab PO 05/06/23 04:12 650 mg Q4H PRN Administration pain/fever Amoxicillin/Clavulanate Potassium 1 tab 04/06/23 09:00 04/11/23 09:44 Amoxicillin/Clavulanate 875 Mg Tab PO 04/11/23 23:59 1 tab BID ALFREDA Administration Protocol Ascorbic Acid 250 mg 04/06/23 09:00 04/11/23 09:41 Ascorbic Acid 500 Mg Tab PO 05/06/23 08:59 250 mg QAM ALFREDA Administration Ciprofloxacin 500 mg 04/06/23 09:00 04/11/23 09:44 Ciprofloxacin 500 Mg Tab PO 04/11/23 23:59 500 mg BID ALFREDA Administration Protocol Enoxaparin Sodium 40 mg 04/06/23 06:00 04/11/23 09:43 Enoxaparin Inj 40 Mg/0.4 Ml Syr SQ 05/06/23 05:59 40 mg Q24H ALFREDA Administration Erythromycin 1,000 mg 04/11/23 14:00 04/11/23 15:09 Erythromycin Delayed Release 250 Mg Cap PO 04/11/23 22:01 1,000 mg 1400,1600,2200 ALFREDA Administration Fluticasone Furoate 1 puffs 04/06/23 09:00 04/11/23 09:45 Fluticasone Furoate 200mcg 14 Puffs/Inhaler INH 05/06/23 08:59 1 puffs DAILY ALFREDA Administration Fluticasone Propionate 1 sprays 04/06/23 04:13 04/06/23 08:38 Fluticasone Propionate Na Spr 16 Gm Btl NA 05/06/23 04:12 1 sprays DAILY PRN Administration Allergy Symptoms Glucosamine Sulfate 500 mg 04/06/23 09:00 04/11/23 09:43 Glucosamine Sulfate 500 Mg Cap PO 05/06/23 08:59 500 mg QAM ALFREDA Administration Promethazine HCl 6.25 mg/ 50.25 mls @ 201 mls/hr 04/07/23 20:13 04/10/23 23:58 Sodium Chloride IV 05/07/23 20:12 Infused Q6H PRN Infusion Nausea And Vomiting Lactobacillus Acidophilus 2 cap 04/06/23 09:00 04/11/23 09:42 Advanced Probiotic 1250 Mg Capsule PO 05/06/23 08:59 2 cap DAILY ALFREDA Administration Loperamide HCl 2 mg 04/09/23 00:22 04/09/23 11:04 Loperamide Hcl 2 Mg Cap PO 05/09/23 00:21 2 mg UD PRN Administration Loose Stool Metoprolol Succinate 25 mg 04/06/23 09:00 04/11/23 09:45 Metoprolol Succ 25mg Ext Rel Tab PO 05/06/23 08:59 25 mg QAM ALFREDA Administration Montelukast Sodium 10 mg 04/06/23 09:00 04/11/23 09:43 Montelukast Sodium 10 Mg Tablet PO 05/06/23 08:59 10 mg DAILY ALFREDA Administration Multivitamins 1 tab 04/06/23 09:00 04/11/23 09:44 Multivitamin Tab PO 05/06/23 08:59 1 tab DAILY ALFREDA Administration Pantoprazole Sodium 40 mg 04/06/23 09:00 04/11/23 09:43 Pantoprazole 40 Mg Tab PO 05/06/23 08:59 40 mg BID ALFREDA Administration Potassium Chloride 20 meq 04/08/23 09:00 04/10/23 20:24 Potassium Chloride Crtab 20 Meq Tabcr PO 05/08/23 08:59 20 meq TID ALFREDA Administration Potassium Phosphate 2 tab 04/07/23 13:00 04/07/23 20:02 Pot Phosphate Monobasic W/ Sod Tab PO 05/07/23 12:59 2 tab QID ALFREDA Administration Rosuvastatin Calcium 20 mg 04/06/23 21:00 04/10/23 20:23 Rosuvastatin Calcium 20 Mg Tab PO 05/06/23 20:59 20 mg HS ALFREDA Administration Umeclidinium/Vilanterol 1 puffs 04/06/23 09:00 04/11/23 09:45 Umeclidinium/Vilanterol 62.5/25mcg 7 Puffs/Inhaler INH 05/06/23 08:59 1 puffs DAILY ALFREDA Administration Vitamin D 1,000 units 04/06/23 09:00 04/11/23 09:45 Cholecalciferol 1,000 Units 25 Mcg Tab PO 05/06/23 08:59 1,000 units DAILY ALFREDA Administration Past Medical History Medical History Osteoporosis COPD (chronic obstructive pulmonary disease) Chronic sinusitis Asthma Diverticulitis Degenerative arthritis of knee, bilateral Trochanteric bursitis, right hip Osteoarthritis GERD (gastroesophageal reflux disease) Hyperlipidemia Hypertension Past Family History Family History Other Family history non-contributory Past Surgical History Surgical History H/O esophagogastroduodenoscopy (03/25/23) Esophagogastroduodenoscopy(Not Applicable) - Lili Alegre, DO Hx laparoscopic cholecystectomy (03/08/23) Laparoscopic Cholecystectomy - Lili Alegre DO Hx of colonoscopy History of open reduction and internal fixation (ORIF) procedure RIGHT HIP Hx of sinus surgery Social History Smoking Status: Never smoker Do You Dip or Chew Tobacco: No Hx Alcohol Use: No Alcohol type: wine alcohol intake frequency: holidays/special occasions only Hx Substance Use: No substance use type: does not use Physical Exam Vital Signs Last Vital Signs Temp 36.6 C 04/11/23 07:57 Pulse 103 H 04/11/23 14:13 Resp 16 04/11/23 07:57 BP 103/65 04/11/23 07:57 Pulse Ox 94 04/11/23 07:57 O2 Del Method Room Air 04/11/23 11:30 O2 Flow Rate 2 04/06/23 06:00 Constitutional WD/WN, vitals as above well developed, well nourished, average body habitus, + frail appearing and cooperative; no acute distress, not ill appearing, not in distress and not diaphoretic Eyes PERRL, conjunctivae normal, anicteric sclerae EOM intact bilaterally ENMT external ear and nose normal, oropharynx normal Ears: no external ear abnormality Nose: no external nose abnormality Mouth: + dry oral mucous membranes Neck trachea midline, no thyromegaly no nuchal rigidity Respiratory normal respiratory effort, lungs clear to auscultation normal respiratory effort and + cough (occasional weak); no respiratory distress, no labored breathing and does not use accessory muscles Auscultation: + diminished lung sounds and + rhonchi (but many fewer today) Cardiovascular RRR, no murmur, no edema Rate/Rhythm: regular rate Gastrointestinal (Abdomen) normal bowel sounds, soft, nontender, no hepatosplenomegaly Inspection/Auscultation: normal bowel sounds Percussion/Palpation: abdomen soft; abdomen nontender Musculoskeletal no cyanosis or clubbing, extremities motor strength 5/5 Extremities: strength 5/5 throughout Skin no rashes, warm and dry Neurologic PERRL, EOMI, accommodation nl, no face palsy, no dysarthria Psychiatric A+Ox3, euthymic affect Orientation: alert and oriented x 3 Lymphatic no cervical or axillary lymphadenopathy Testing Laboratory Results 04/07/23 05:31 04/11/23 04:11 PT 12.3 Seconds (9.0-12.0) H 04/05/23 17:16 INR 1.1 (0.9-1.1) 04/05/23 17:16 Urine Color Yellow 04/06/23 16:05 Urine Appearance Clear (Clear) 04/06/23 16:05 Urine pH 6.5 (4.5-7.5) 04/06/23 16:05 Ur Specific Makinen 1.008 (1.000-1.030) 04/06/23 16:05 Urine Protein Negative (Negative) 04/06/23 16:05 Urine Glucose (UA) Negative (Negative) 04/06/23 16:05 Urine Ketones Negative (Negative) 04/06/23 16:05 Urine Nitrite Negative (Negative) 04/06/23 16:05 Ur Leukocyte Esterase 2+ (Negative) H 04/06/23 16:05 Urine WBC (Auto) >30 /hpf (0-5) H 04/06/23 16:05 Urine RBC (Auto) 0-4 /hpf (0-4) 04/06/23 16:05 U Hyaline Cast (Auto) 1-5 /lpf (0-5) 04/06/23 16:05 U Epithel Cells (Auto) 10-20 /lpf (0-5) H 04/06/23 16:05 Urine Bacteria (Auto) Negative (Negative) 04/06/23 16:05 04/06/23 16:05 Urine Culture - Preliminary Urine,Clean Catch Yumiko glabrata complex
[2023-04-11] MEDS ORDERED: POLYETHYLENE (MIRALAX) 17 GM PACK PO ONE (16:00)
[2023-04-11] MEDS: PROMETHAZINE HCL 6.25 MG in SODIUM CHLORIDE 0.9% 50 ML IV PRN (19:26)
[2023-04-11] MEDS: ROSUVASTATIN CALCIUM 20 MG TAB PO SCH (20:04)
--- NOTE | 2023-04-11 20:48 | Hospitalist Progress Note ---
Date of Service April 11, 2023 Assessment & Plan (1) Generalized weakness: Plan: per Dr. Mcnulty's notes with addendum: 77-year-old female with past med significant for hyperlipidemia, asthma mild persistent, chronic sinusitis, history of CAD, patent foramen ovale, atrial septal aneurysm, GERD, diverticulitis of sigmoid colon, osteoporosis, aspirin contraindicated, presents with nausea and weakness and not feeling well. Patient had prolonged antibiotic course for diverticular abscess. She was admitted initially on February 10 at [facility] for diverticular abscess treated with Vanco cefepime and metronidazole and she was discharged on cefdinir and metronidazole. She followed with PCP for abdominal pain March 03. CT scan showed diffuse diverticulitis with abscess abscess measuring 3.2 x 2.0 x 3.4 cm. Patient was admitted to [facility]. CT scan also showed some nonspecific GALLBLADDER wall thickening. She had cholecystectomy on 03/08. 03/12/23 had worsening nausea and abdominal pain and repeat his CAT scan showed increasing diverticular abscess to 2.6 x 4.7 cm. General surgery consulted and advised for transfer to [place] for IR drainage. At [place] IR drainage was deemed unsuitable due to its intramural location. ID was consulted. ID recommended IV Invanz. Had PICC line and was discharged. ID recommended Invanz for 21 days. Again she was admitted [facility] on 03/22/23 for weakness and abdominal pain. ID was consulted and Invanz was changed to Cipro and Flagyl due to nausea. As Patient having persistent nausea and poor appetite on March 28 GI was consulted. Repeat CT scan showed increased size of abscess. GI recommended advanced endoscopist for possible drainage. And she was transferred to [place] on March 29. At [place] antibiotics were changed Zosyn after testing for allergy. GI attempted lower endoscopy / endoscopic ultrasound and flexible sigmoidoscopy on 04/01/23 but was not completed due to severe diverticulosis in the sigmoid colon with narrowing of colon and spasm. IR attempted percutaneous drainage but this was aborted as a repeat CT demonstrated no abscess to drain. It was thought that abscess may have self drained after manipulation by GI. Zosyn was switched to p.o. Cipro and Augmentin and was stable to discharge 2022 for total of 9 more days of p.o. antibiotics. Patient currently thinks her abdominal infection is getting better. Yesterday she had episode of diarrhea. But today she did not move her bowels. Was feeling nauseous poor appetite. Having weakness.. Not feeling well. Denies any fevers. No chest pain or shortness of breath. No cough. No runny nose or sore throat. No headache. Hemodynamically stable. GENERALIZED WEAKNESS NAUSEA POOR APPETITE DIVERTICULAR ABSCESS On antibiotics for long time for diverticular abscess Currently on p.o. Augmentin and p.o. Cipro for total of 9 days starting on April 03/2023 Patient thinks her infection is getting better Had an episode of diarrhea yesterday Today did not move her bowels Hemodynamically stable No leukocytosis Labs showed magnesium of 1.0 Will replace magnesium Gentle fluids Follow repeat labs in a.m. Tachycardic on presentation currently improved Getting KUB Monitor in the hospital 04/07 CT abdomen pelvis : 1. Significantly suboptimal examination without oral and IV contrast. 2. Wall thickening of the sigmoid colon with surrounding inflammation at the site of previously characterized diverticulitis is similar to the 03/28/2023 examination. 3. A multiloculated intramural abscess is again seen involving the sigmoid colon. This is difficult to characterize/delineate without IV contrast, but appears modestly decreased in size from 03/28/2023. See above. 4. No intraperitoneal free air is seen. 5. Trace pleural effusions. 6. Additional findings as above. 04/08 Nausea and pain seems to be improving gradually CT abdomen still showing interval abscess although decreased in size Electrolytes still low, management per below GI consulted-no endoscopic intervention at this point General surgery consulted-recommend possible colectomy if without improvement on Tuesday 04/10 Dr. Calloway discussed with patient's daughter re: Colectomy patient and family will discuss re: surgery 04/11 afebrile, clinically stable Surgery being planned HYPOKALEMIA, HYPOCALCEMIA, HYPOPHOSPHATEMIA, HYPOMAGNESEMIA Levels improving Supplements ordered Nephrology also consulted ABNORMAL EKG Nonspecific ST-T wave changes Denies cardiac symptoms History of CAD On statin, beta-elisabeth GERD Protonix Hyperlipidemia On statin History of asthma Home inhalers On montelukast Right kidney lesion On the CAT scan previous admission Needs follow-up DVT prophylaxis Lovenox Disposition Anticipate discharge to home when medically stable PT and OT evaluation Admission and Anticipated Discharge Date Admission Date: April 06, 2023 Subjective Follow-up for diverticular abscess, etc. Seen resting in bed, comfortable, not in distress States she feels okay today No abdominal pain, nausea Surgery being planned as per patient No other symptoms Review of Systems Review of Systems: all noted and negative except for above Physical Exam Physical Exam: No tendernessGeneral- oriented x 3, not in distress, speaks in sentences with no effort or accessory muscle use Eyes- anicteric Neck- no JVD Lungs- clear breath sounds bilaterally, no rales/wheezes Heart- normal rate, regular rhythm; no murmurs Abdomen- normal bowel sounds, nondistended, soft no tenderness Extremities- no pretibial edema, no calf tenderness Neuro- alert, oriented x 3; no gross focal neurologic deficits Skin- warm & dry Results & Data Results & Data Vital Signs (Past 12 Hours) Vital Signs Temp Pulse Pulse Resp BP Pulse Ox O2 Del Method 04/11/23 19:00 37.1 C 101 H 18 122/79 96 Room Air 04/11/23 16:27 36.8 C 92 H 16 125/78 93 Room Air 04/11/23 14:13 103 H 04/11/23 11:30 Room Air all noted and reviewed including below
[2023-04-12 05:19] LABS: BUN Creatinine Ratio 12.3 (10-20); Calcium 7.9 mg/dl (8.6-10.3); Creatinine Clr Calc Pharmacy 73.3 ml/min; Est GFR (African American) 104.4 ml/min; Potassium 3.8 mmol/L (3.5-5.1)
[2023-04-12] MEDS: ENOXAPARIN INJ 40 MG/0.4 ML SYR SQ SCH (08:04)
[2023-04-12] MEDS: MULTIVITAMIN TAB PO SCH (08:05)
[2023-04-12] MEDS: ADVANCED PROBIOTIC 1250 MG CAPSULE PO SCH (08:05)
[2023-04-12] MEDS: ASCORBIC ACID 500 MG TAB PO SCH (08:05)
[2023-04-12] MEDS: CHOLECALCIFEROL 1,000 UNITS 25 MCG TAB PO SCH (08:05)
[2023-04-12] MEDS: FLUTICASONE FUROATE 200MCG 14 PUFFS/INHALER INH SCH (08:09)
[2023-04-12] MEDS: GLUCOSAMINE SULFATE 500 MG CAP PO SCH (08:09)
[2023-04-12] MEDS: METOPROLOL SUCC 25MG EXT REL TAB PO SCH (08:13)
[2023-04-12] MEDS: PANTOprazole 40 MG TAB PO SCH ×2 (08:13→22:21)
[2023-04-12] MEDS: MONTELUKAST SODIUM 10 MG TABLET PO SCH (08:13)
[2023-04-12] MEDS: UMECLIDINIUM/VILANTEROL 62.5/25MCG 7 PUFFS/INHALER INH SCH (08:26)
[2023-04-12 10:25] LABS: Magnesium 1.5 mg/dl (1.7-2.4); Phosphorus 2.8 mg/dl (2.5-4.9)
[2023-04-12] MEDS ORDERED: LACTATED RINGER'S 1,000 ML IV SCH (12:15)
[2023-04-12] MEDS ORDERED: PROPOFOL IV EMULSION 10 MG/ML 20 ML VIAL IV ONE (13:16)
[2023-04-12] MEDS ORDERED: LIDOCAINE 2% 2 ML VIAL/AMP(20MG/ML) INFIL ONE (13:16)
--- NOTE | 2023-04-12 13:19 | History & Physical Bridge Note ---
Date of Service April 12, 2023 History & Physical Bridge Note I have examined the patient, reviewed the History & Physical and in the interval since the performance of the History & Physical I have noted the following changes of clinical significance: no changes noted since yesterday. Patient presents to the OR for colonoscopy evaluation prior to planned colon resection.
[2023-04-12] MEDS ORDERED: ONDANSETRON INJ 2 MG/ML 2 ML VIAL IV PRN (13:27)
[2023-04-12] MEDS ORDERED: fentaNYL citrate PF 100 MCG/2 ML VIAL IV PRN (13:27)
[2023-04-12] MEDS ORDERED: ePHEDrine sulfate 50 MG/ML AMP IV PRN (13:27)
[2023-04-12] MEDS ORDERED: ATROPINE SULFATE 0.1 MG/ML 10ML SYR IV PRN (13:27)
--- NOTE | 2023-04-12 13:38 | Surgery Progress Note ---
Date of Service April 11, 2023 Assessment & Plan (1) Diarrhea: (2) Generalized weakness: (3) Nausea & vomiting: (4) Colonic diverticular abscess: Plan: Patient has agreed to surgery as her condition fails to completely resolve with antibiotics. She feels as though she is unable to tolerate antibiotics. Nonetheless the disease at the colon seems to persist. Pulmonary will consider if there is an opportunity to bring establish continuity of the colon with the rectum at the time of surgery versus a colostomy. Plan is for colonoscopy as the patient has not had a colonoscopy in a few years and ultimately resection of the sigmoid colon with possible colostomy if indicated at that time. Admission and Anticipated Discharge Date Admission Date: April 06, 2023 Subjective Patient was seen and examined. Her daughter was at the bedside. Patient states her condition seemed unchanged and agreed to colectomy. Physical Exam Constitutional: not disheveled, not in distress and not diaphoretic Gastrointestinal (Abdomen): Nontender Results & Data Vital Signs (Past 12 Hours) Vital Signs Temp Pulse Pulse Resp BP Pulse Ox O2 Del Method 04/12/23 12:04 36.9 C 97 H 23 129/78 96 Room Air 04/12/23 11:49 36.8 C 93 H 16 108/65 94 Room Air 04/12/23 08:08 36.6 C 98 H 20 121/75 94 Room Air 04/12/23 05:59 93 H 04/12/23 03:20 36.9 C 101 H 18 120/76 96 Room Air PG Care Time/CCT Total # of Minutes Spent Total Time Spent with Patient: Total time spent is greater than 50% in coordination of care (as documented) at patient's floor/unit and/or counseling patient: Coding [place] [address] SUB INP/OBS CARE 06/02MIN Patient Type Established History Problem Focused Exam Problem Focused Medical Decision Making Straight Forward Diagnoses Diarrhea R19.7 Generalized weakness R53.1 Nausea and vomiting, unspecified vomiting type R11.2 Vomiting type: unspecified Colonic diverticular abscess K57.20 (3) Nausea & vomiting Vomiting type: unspecified Qualified Code(s): R11.2 - Nausea with vomiting, unspecified
--- NOTE | 2023-04-12 14:32 | Operative Report ---
PG Post Operative Report Pre & Post Diagnosis Operation Date: 04/14/23 09:45 <No data on this case meets the specified criteria> I identified the patient and participated in the time-out.: Yes Procedure Operation Date: 04/14/23 09:45 <No data on this case meets the specified criteria> Surgeon Lili Alegre, Savings Counselor No certified surgical technologist Estimated Blood Loss 0 Findings See Below Severe swelling and narrowing at the rectosigmoid junction. Purulent discharge from the vagina during colonoscopy manipulation. Suspect potential fistula to the vagina. Culture swab was sent. Specimens None Drains None Anesthesia Type MAC Complications None Description of Procedure Patient was brought back to the operating room and placed on the hospital bed in left lateral decubitus position. She was connected to cardiac, oxygen imer toring and administer supplemental oxygen. Conscious sedation was administered a timeout was conducted. Digital rectal exam was performed there were no masses in the anus or rectum. The endoscope was inserted into the anus and careful advanced to the rectosigmoid junction and into the lower sigmoid. There was significant swelling and narrowing of the lumen at this location. With scope manipulation and effort to navigate through this area, there was a copious amount of purulent fluid frequently evacuating from the vagina. A culture swab was taken and submitted to microbiology for Gram stain, aerobic and anaerobic culture. This seems suspicious for potential fistulous tract from the abscess to the vagina After multiple attempts had been made to pull it back in readvanced the scope, it was not possible to get the scope to make the necessary sharp turn in the face of the significant swelling. The exam was aborted due to safety concerns. The patient was awakened from anesthesia and transferred to recovery in stable condition. I attest to the content of the Intraoperative Record and any orders documented therein. Any exceptions are noted below.
--- NOTE | 2023-04-12 15:59 | Anesthesiology Progress Note ---
Date of Service April 12, 2023 Anesthesia Post Procedure Vital Signs Vital Signs: Temp Pulse Pulse Pulse Resp BP Pulse Ox 04/12/23 15:48 93 H 04/12/23 15:19 98.2 F 92 H 16 132/85 91 04/12/23 15:00 98.8 F 91 H 16 101/65 97 04/12/23 14:50 98.8 F 95 H 22 132/73 97 04/12/23 14:40 97 H 20 109/69 97 04/12/23 14:30 93 H 29 H 116/86 98 04/12/23 14:21 98.2 F 94 H 14 137/81 100 04/12/23 12:04 98.4 F 97 H 23 129/78 96 04/12/23 11:49 98.2 F 93 H 16 108/65 94 04/12/23 08:08 97.9 F 98 H 20 121/75 94 04/12/23 05:59 93 H 04/12/23 03:20 98.4 F 101 H 18 120/76 96 04/11/23 22:05 112 H 04/11/23 22:00 98.1 F 104 H 18 126/81 98 04/11/23 19:00 98.8 F 101 H 18 122/79 96 04/11/23 16:27 98.2 F 92 H 16 125/78 93 O2 Del Method O2 Flow Rate 04/12/23 15:48 04/12/23 15:19 Room Air 04/12/23 15:00 Room Air 04/12/23 14:50 Room Air 04/12/23 14:40 Room Air 04/12/23 14:30 Oxymask 3 04/12/23 14:21 Oxymask 5 04/12/23 12:04 Room Air 04/12/23 11:49 Room Air 04/12/23 08:08 Room Air 04/12/23 05:59 04/12/23 03:20 Room Air 04/11/23 22:05 04/11/23 22:00 Room Air 04/11/23 19:00 Room Air 04/11/23 16:27 Room Air Transfer of Care Handoff Completed per policy Notes Mental Status: alert / awake / arousable and participated in evaluation Patient Amnestic to Procedure: Yes Nausea / Vomiting: adequately controlled Pain: adequately controlled Airway Patency, RR, SpO2: stable & adequate BP & HR: stable & adequate Hydration State: stable & adequate Anesthetic Complications: no major complications apparent and Pt Satisfied with anesthetic care
--- NOTE | 2023-04-12 18:42 | Hospitalist Progress Note ---
Date of Service April 12, 2023 Assessment & Plan (1) Generalized weakness: Plan: per Dr. Mcnulty's notes with addendum: 77-year-old female with past med significant for hyperlipidemia, asthma mild persistent, chronic sinusitis, history of CAD, patent foramen ovale, atrial septal aneurysm, GERD, diverticulitis of sigmoid colon, osteoporosis, aspirin contraindicated, presents with nausea and weakness and not feeling well. Patient had prolonged antibiotic course for diverticular abscess. She was admitted initially on February 10 at [facility] [address] for diverticular abscess treated with Vanco cefepime and metronidazole and she was discharged on cefdinir and metronidazole. She followed with PCP for abdominal pain March 03. CT scan showed diffuse diverticulitis with abscess abscess measuring 3.2 x 2.0 x 3.4 cm. Patient was admitted to [facility] [address] CT scan also showed some nonspecific GALLBLADDER wall thickening. She had cholecystectomy on 03/08. 03/12/23 had worsening nausea and abdominal pain and repeat his CAT scan showed increasing diverticular abscess to 2.6 x 4.7 cm. General surgery consulted and advised for transfer to [place] for IR drainage. At [place] IR drainage was deemed unsuitable due to its intramural location. ID was consulted. ID recommended IV Invanz. Had PICC line and was discharged. ID recommended Invanz for 21 days. Again she was admitted [facility] [address] on 03/22/23 for weakness and abdominal pain. ID was consulted and Invanz was changed to Cipro and Flagyl due to nausea. As Patient having persistent nausea and poor appetite on March 28 GI was consulted. Repeat CT scan showed increased size of abscess. GI recommended advanced endoscopist for possible drainage. And she was transferred to [place] on March 29. At [place] antibiotics were changed Zosyn after testing for allergy. GI attempted lower endoscopy / endoscopic ultrasound and flexible sigmoidoscopy on 04/01/23 but was not completed due to severe diverticulosis in the sigmoid colon with narrowing of colon and spasm. IR attempted percutaneous drainage but this was aborted as a repeat CT demonstrated no abscess to drain. It was thought that abscess may have self drained after manipulation by GI. Zosyn was switched to p.o. Cipro and Augmentin and was stable to discharge 2022 for total of 9 more days of p.o. antibiotics. Patient currently thinks her abdominal infection is getting better. Yesterday she had episode of diarrhea. But today she did not move her bowels. Was feeling nauseous poor appetite. Having weakness.. Not feeling well. Denies any fevers. No chest pain or shortness of breath. No cough. No runny nose or sore throat. No headache. Hemodynamically stable. PERSISTENT DIVERTICULAR ABSCESS GENERALIZED WEAKNESS NAUSEA POOR APPETITE On antibiotics for long time for diverticular abscess Currently on p.o. Augmentin and p.o. Cipro for total of 9 days starting on April 0304/07 CT abdomen pelvis : 1. Significantly suboptimal examination without oral and IV contrast. 2. Wall thickening of the sigmoid colon with surrounding inflammation at the site of previously characterized diverticulitis is similar to the 03/28/2023 examination. 3. A multiloculated intramural abscess is again seen involving the sigmoid colon. This is difficult to characterize/delineate without IV contrast, but appears modestly decreased in size from 03/28/2023. See above. 4. No intraperitoneal free air is seen. 5. Trace pleural effusions. 6. Additional findings as above. P.o. Cipro plus Augmentin continued Patient's abdominal pain and nausea somewhat improved but still persistent General surgery consulted-recommend surgical intervention possible colectomy, colostomy placement Patient for OR today for definitive management of diverticular abscess HYPOKALEMIA, HYPOCALCEMIA, HYPOPHOSPHATEMIA, HYPOMAGNESEMIA Levels improving Supplements ordered Nephrology also consulted Monitor closely ABNORMAL EKG Nonspecific ST-T wave changes Denies cardiac symptoms History of CAD On statin, beta-elisabeth GERD Protonix Hyperlipidemia On statin History of asthma Home inhalers On montelukast Right kidney lesion On the CAT scan previous admission Needs follow-up DVT prophylaxis Lovenox Disposition PT and OT evaluation Lives at home with family Admission and Anticipated Discharge Date Admission Date: April 06, 2023 Subjective Follow-up for persistent diverticular abscess, etc. Seen resting in bed, comfortable, not in distress States she feels okay today overall Less nausea, no abdominal pain no chest pain, dyspnea, palpitations, dizziness No other new symptom Review of Systems Review of Systems: all noted and negative except for above Physical Exam Physical Exam: General- oriented x 3, not in distress, speaks in sentences with no effort or accessory muscle use Eyes- anicteric Neck- no JVD Lungs- clear breath sounds bilaterally Heart- normal rate, regular rhythm; no murmurs Abdomen- normal bowel sounds, nondistended, soft, no tenderness Extremities- no pretibial edema, no calf tenderness Neuro- alert, oriented x 3; no gross focal neurologic deficits Skin- warm & dry Results & Data Results & Data Vital Signs (Past 12 Hours) Vital Signs Temp Pulse Pulse Pulse Resp BP Pulse Ox 04/12/23 16:17 36.8 C 99 H 16 95/63 L 96 04/12/23 15:48 93 H 04/12/23 15:19 36.8 C 92 H 16 132/85 91 04/12/23 15:00 37.1 C 91 H 16 101/65 97 04/12/23 14:50 37.1 C 95 H 22 132/73 97 04/12/23 14:40 97 H 20 109/69 97 04/12/23 14:30 93 H 29 H 116/86 98 04/12/23 14:21 36.8 C 94 H 14 137/81 100 04/12/23 12:04 36.9 C 97 H 23 129/78 96 04/12/23 11:49 36.8 C 93 H 16 108/65 94 04/12/23 08:08 36.6 C 98 H 20 121/75 94 O2 Del Method O2 Flow Rate 04/12/23 16:17 Room Air 04/12/23 15:48 04/12/23 15:19 Room Air 04/12/23 15:00 Room Air 04/12/23 14:50 Room Air 04/12/23 14:40 Room Air 04/12/23 14:30 Oxymask 3 04/12/23 14:21 Oxymask 5 04/12/23 12:04 Room Air 04/12/23 11:49 Room Air 04/12/23 08:08 Room Air all noted and reviewed including below
[2023-04-12] MEDS: ROSUVASTATIN CALCIUM 20 MG TAB PO SCH (22:21)
[2023-04-13 05:01] LABS: BUN Creatinine Ratio 14.5 (10-20); Calcium 7.9 mg/dl (8.6-10.3); Est GFR (African American) 105.6 ml/min; Est GFR (Non-African American) 91.1 ml/min; Magnesium 1.6 mg/dl (1.7-2.4); Phosphorus 2.2 mg/dl (2.5-4.9); Potassium 3.6 mmol/L (3.5-5.1)
[2023-04-13] MEDS: ENOXAPARIN INJ 40 MG/0.4 ML SYR SQ SCH (09:04)
[2023-04-13] MEDS: MONTELUKAST SODIUM 10 MG TABLET PO SCH (09:05)
[2023-04-13] MEDS: METOPROLOL SUCC 25MG EXT REL TAB PO SCH (09:05)
[2023-04-13] MEDS: ADVANCED PROBIOTIC 1250 MG CAPSULE PO SCH (09:05)
[2023-04-13] MEDS: FLUTICASONE FUROATE 200MCG 14 PUFFS/INHALER INH SCH (09:05)
[2023-04-13] MEDS: MULTIVITAMIN TAB PO SCH (09:05)
[2023-04-13] MEDS: PANTOprazole 40 MG TAB PO SCH ×2 (09:05→20:16)
[2023-04-13] MEDS: GLUCOSAMINE SULFATE 500 MG CAP PO SCH (09:05)
[2023-04-13] MEDS: UMECLIDINIUM/VILANTEROL 62.5/25MCG 7 PUFFS/INHALER INH SCH (09:05)
[2023-04-13] MEDS: ASCORBIC ACID 500 MG TAB PO SCH (09:05)
[2023-04-13] MEDS: CHOLECALCIFEROL 1,000 UNITS 25 MCG TAB PO SCH (09:06)
[2023-04-13] MEDS ORDERED: POTASSIUM PHOS 3 MMOL/1 ML INFUSION IV STA (16:04)
--- NOTE | 2023-04-13 16:14 | Hospitalist Progress Note ---
Date of Service April 13, 2023 Assessment & Plan (1) Generalized weakness: Plan: 77-year-old female with past med significant for hyperlipidemia, asthma mild persistent, chronic sinusitis, history of CAD, patent foramen ovale, atrial septal aneurysm, GERD, diverticulitis of sigmoid colon, osteoporosis, aspirin contraindicated, presents with nausea and weakness and not feeling well. Patient had prolonged antibiotic course for diverticular abscess. She was admitted initially on February 10 at [facility] for diverticular abscess treated with Vanco cefepime and metronidazole and she was discharged on cefdinir and metronidazole. She followed with PCP for abdominal pain March 03. CT scan showed diffuse diverticulitis with abscess abscess measuring 3.2 x 2.0 x 3.4 cm. Patient was admitted to [facility]. CT scan also showed some nonspecific GALLBLADDER wall thickening. She had cholecystectomy on 03/08. 03/12/23 had worsening nausea and abdominal pain and repeat his CAT scan showed increasing diverticular abscess to 2.6 x 4.7 cm. General surgery consulted and advised for transfer to [place] for IR drainage. At [place] IR drainage was deemed unsuitable due to its intramural location. ID was consulted. ID recommended IV Invanz. Had PICC line and was discharged. ID recommended Invanz for 21 days. Again she was admitted [facility] on 03/22/23 for weakness and abdominal pain. ID was consulted and Invanz was changed to Cipro and Flagyl due to nausea. As Patient having persistent nausea and poor appetite on March 28 GI was consulted. Repeat CT scan showed increased size of abscess. GI recommended advanced endoscopist for possible drainage. And she was transferred to [place] on March 29. At [place] antibiotics were changed Zosyn after testing for allergy. GI attempted lower endoscopy / endoscopic ultrasound and flexible sigmoidoscopy on 04/01/23 but was not completed due to severe diverticulosis in the sigmoid colon with narrowing of colon and spasm. IR attempted percutaneous drainage but this was aborted as a repeat CT demonstrated no abscess to drain. It was thought that abscess may have self drained after manipulation by GI. Zosyn was switched to p.o. Cipro and Augmentin and was stable to discharge 2022 for total of 9 more days of p.o. antibiotics. Presented to [facility] again with generalized weakness, nausea and poor appetite Repeated diverticular abscess Possible colovaginal abscess Multiple hospitalizations in the last 2-month due to diverticular abscess as in listed above Status post Augmentin and Cipro (Completed on April 11, 2023) Repeat CT abdomen and pelvis done during the hospitalization; wall thickening of sigmoid colon with surrounding inflammation. Multiloculated intramural abscess in sigmoid colon as well. Underwent colonoscopy by surgery on April 12urulent discharge from vagina during colonoscopy manipulation. Suspect potential fistula to the vagina. Culture from the colonoscopy shows Yumiko albicans/dublinensis Started on Caspofungin; infectious disease consulted. Discussed with surgery; possible Exploratory Laparoscopy, Possible Laparoscopic Colectomy, Possible Open, Possible Colostomy HYPOKALEMIA, HYPOCALCEMIA, HYPOPHOSPHATEMIA, HYPOMAGNESEMIA Labs reviewed Replacement ordered Nephrology also consulted ABNORMAL EKG Nonspecific ST-T wave changes Denies cardiac symptoms History of CAD On statin, beta-elisabeth GERD Protonix Hyperlipidemia On statin History of asthma Home inhalers On montelukast Right kidney lesion On the CAT scan previous admission Needs follow-up DVT prophylaxis Lovenox Disposition Patient will have possible Exploratory Laparoscopy, Possible Laparoscopic Colectomy, Possible Open, Possible Colostomy by surgery tomorrow. Will need PT OT prior to discharge. Time spent evaluating patient, direct bedside care, chart review, placing orders, interpretation of diagnostic studies, discussion with consultants, patient, and family members, as well as other required patient management activities is 60 minutes Please note the above document was generated using voice recognition software. It may contain grammatical, syntax or spelling errors. Any formal questions or concerns about the content, text or information contained within the body of this dictation should be directly addressed to the provider for clarification Admission and Anticipated Discharge Date Admission Date: April 06, 2023 Subjective Patient seen and examined at bedside. She is lying in the bed; reports nausea. She is tolerating clear liquid diet well without any difficulty. Review of Systems Review of Systems: All systems reviewed & are unremarkable except as noted in Subjective Physical Exam Physical Exam: General- oriented x 3, not in distress, speaks in sentences with no effort or accessory muscle use Eyes- anicteric Neck- no JVD Lungs- clear breath sounds bilaterally Heart- normal rate, regular rhythm; no murmurs Abdomen- normal bowel sounds, nondistended, soft, no tenderness Extremities- no pretibial edema, no calf tenderness Neuro- alert, oriented x 3; no gross focal neurologic deficits Skin- warm & dry Results & Data Results & Data Vital Signs (Past 12 Hours) Vital Signs Temp Pulse Pulse Resp BP Pulse Ox O2 Del Method 04/13/23 15:26 36.8 C 95 H 16 104/65 91 Room Air 04/13/23 12:43 36.7 C 98 H 16 112/70 94 Room Air 04/13/23 07:57 36.7 C 96 H 16 124/78 96 Room Air 04/13/23 06:02 84 Laboratory Results Laboratory Results WBC 5.84 K/ul (4.8-10.8) 04/07/23 05:31 RBC 3.13 M/uL (4.20-5.40) L 04/07/23 05:31 Hgb 9.0 g/dl (12.0-16.0) L 04/07/23 05:31 Hct 27.8 % (37.0-47.0) L 04/07/23 05:31 MCV 88.8 fL (80.0-100.0) 04/07/23 05:31 MCH 28.8 pg (25.0-34.0) 04/07/23 05:31 MCHC 32.4 g/dL (32.0-36.0) 04/07/23 05:31 RDW Std Deviation 48.4 fL (36.4-46.3) H 04/07/23 05:31 RDW Coeff of Edgard 15.0 % (11.5-14.5) H 04/07/23 05:31 Plt Count 317 K/uL (130-400) 04/07/23 05:31 MPV 10.0 fL (9.4-12.4) 04/07/23 05:31 Immature Gran % (Auto) 0.2 % 04/07/23 05:31 Neut % (Auto) 61.3 % 04/07/23 05:31 Lymph % (Auto) 28.6 % 04/07/23 05:31 Warrick % (Auto) 7.5 % 04/07/23 05:31 Eos % (Auto) 1.7 % 04/07/23 05:31 Baso % (Auto) 0.7 % 04/07/23 05:31 Neut # (Auto) 3.58 K/uL (1.40-6.50) 04/07/23 05:31 Lymph # (Auto) 1.67 K/uL (1.20-3.40) 04/07/23 05:31 Warrick # (Auto) 0.44 K/uL (0.11-0.59) 04/07/23 05:31 Eos # (Auto) 0.10 K/uL (0.00-0.50) 04/07/23 05:31 Baso # (Auto) 0.04 K/uL (0.00-0.20) 04/07/23 05:31 Immature Gran # (Auto) 0.01 K/uL (0.01-0.20) 04/07/23 05:31 PT 12.3 Seconds (9.0-12.0) H 04/05/23 17:16 INR 1.1 (0.9-1.1) 04/05/23 17:16 Sodium 138 mmol/L (136-145) 04/13/23 04:14 Potassium 3.6 mmol/L (3.5-5.1) 04/13/23 04:14 Chloride 107 mmol/L (98-107) 04/13/23 04:14 Carbon Dioxide 23 mmol/L (21-32) 04/13/23 04:14 Anion Gap 8 (3-11) 04/13/23 04:14 BUN 8 mg/dl (6-23) 04/13/23 04:14 Creatinine 0.55 mg/dl (0.6-1.2) L 04/13/23 04:14 Est Cr Clr Drug Dosing 75.0 ml/min 04/13/23 04:14 Est GFR ( Amer) 105.6 ml/min 04/13/23 04:14 Est GFR (Non-Af Amer) 91.1 ml/min 04/13/23 04:14 BUN/Creatinine Ratio 14.5 (10-20) 04/13/23 04:14 Glucose 84 mg/dl (70-99(Fasting)) 04/13/23 04:14 Calcium 7.9 mg/dl (8.6-10.3) L 04/13/23 04:14 Ionized Calcium 0.94 mmol/L (1.12-1.32) L 04/06/23 09:20 Phosphorus 2.2 mg/dl (2.5-4.9) L 04/13/23 04:14 Magnesium 1.6 mg/dl (1.7-2.4) L 04/13/23 04:14 Total Bilirubin 0.7 mg/dl (0.2-1.0) 04/10/23 05:12 AST 13 U/L (13-39) 04/10/23 05:12 ALT 5 U/L (7-52) L 04/10/23 05:12 Alkaline Phosphatase 62 U/L (34-104) 04/10/23 05:12 Troponin I High Sens 8.0 pg/ml (0-14) 04/06/23 06:52 Total Protein 5.5 gm/dl (6.0-8.3) L 04/10/23 05:12 Albumin 2.9 gm/dl (3.4-5.0) L 04/10/23 05:12 Globulin 2.6 gm/dl (2.5-4.0) 04/10/23 05:12 Albumin/Globulin Ratio 1.1 (0.9-2) 04/10/23 05:12 25-OH Vitamin D Total 55.7 ng/ml (30-100) 04/07/23 05:31 PTH Intact 259.9 pg/ml (12.0-88.0) H 04/07/23 05:31 Urine Color Yellow 04/06/23 16:05 Urine Appearance Clear (Clear) 04/06/23 16:05 Urine pH 6.5 (4.5-7.5) 04/06/23 16:05 Ur Specific [place] 1.008 (1.000-1.030) 04/06/23 16:05 Urine Protein Negative (Negative) 04/06/23 16:05 Urine Glucose (UA) Negative (Negative) 04/06/23 16:05 Urine Ketones Negative (Negative) 04/06/23 16:05 Urine Blood Negative (Negative) 04/06/23 16:05 Urine Nitrite Negative (Negative) 04/06/23 16:05 Urine Bilirubin Negative (Negative) 04/06/23 16:05 Urine Urobilinogen Negative (Negative) 04/06/23 16:05 Ur Leukocyte Esterase 2+ (Negative) H 04/06/23 16:05 Urine WBC (Auto) >30 /hpf (0-5) H 04/06/23 16:05 Urine RBC (Auto) 0-4 /hpf (0-4) 04/06/23 16:05 U Hyaline Cast (Auto) 1-5 /lpf (0-5) 04/06/23 16:05 U Epithel Cells (Auto) 10-20 /lpf (0-5) H 04/06/23 16:05 Urine Bacteria (Auto) Negative (Negative) 04/06/23 16:05 Urine Yeast Present (None Prsent) A 04/06/23 16:05 Stl C. cayetanensis PCR Not Detected (NotDetected) 04/08/23 04:13 Stool Rotavirus A PCR Not Detected (NotDetected) 04/08/23 04:13 Stl Adenov F 40/41 PCR Not Detected (NotDetected) 04/08/23 04:13 Stool Astrovirus (PCR) Not Detected (NotDetected) 04/08/23 04:13 Stool Campylobacter PCR Not Detected (NotDetected) 04/08/23 04:13 Stl C. diff Tox B Gene Negative Cdiff Gene (Neg) 04/08/23 04:13 Stool Cryptosporidium PCR Not Detected (NotDetected) 04/08/23 04:13 Stl E.coli Shiga Tox PCR Not Detected (NotDetected) 04/08/23 04:13 Stl Enterotoxigenic E PCR Not Detected (NotDetected) 04/08/23 04:13 Stool EPEC (PCR) Not Detected (NotDetected) 04/08/23 04:13 Stool EAEC (PCR) Not Detected (NotDetected) 04/08/23 04:13 Stl E. histolytica PCR Not Detected (NotDetected) 04/08/23 04:13 Stool Giardia Lamblia PCR Not Detected (NotDetected) 04/08/23 04:13 Stool Salmonella PCR Not Detected (NotDetected) 04/08/23 04:13 Stool Sapovirus (PCR) Not Detected (NotDetected) 04/08/23 04:13 Stl P. shigelloides PCR Not Detected (NotDetected) 04/08/23 04:13 Stl Shigella/EIEC PCR Not Detected (NotDetected) 04/08/23 04:13 St Y.enterocolitica PCR Not Detected (NotDetected) 04/08/23 04:13 Stool Vibrio (PCR) Not Detected (NotDetected) 04/08/23 04:13 Stl Vibrio cholerae PCR Not Detected (NotDetected) 04/08/23 04:13 Stl Norovirus GI/GII PCR Not Detected (NotDetected) 04/08/23 04:13 Adenovirus (PCR) Not Detected (NotDetected) 04/05/23 20:33 B. pertussis DNA (PCR) Not Detected (NotDetected) 04/05/23 20:33 B.parapertussis DNA PCR Not Detected (NotDetected) 04/05/23 20:33 C. pneumoniae DNA (PCR) Not Detected (NotDetected) 04/05/23 20:33 Coronavirus OC43 (PCR) Not Detected (NotDetected) 04/05/23 20:33 Coronavirus HKU1 (PCR) Not Detected (NotDetected) 04/05/23 20:33 Coronavirus 229E (PCR) Not Detected (NotDetected) 04/05/23 20:33 SARS-CoV-2 (PCR) Not Detected (NotDetected) 04/05/23 20:33 Coronavirus NL63 (PCR) Not Detected (NotDetected) 04/05/23 20:33 Human Metapneumovir PCR Not Detected (NotDetected) 04/05/23 20:33 Influenza Type A (PCR) Not Detected (NotDetected) 04/05/23 20:33 Influenza Type B (PCR) Not Detected (NotDetected) 04/05/23 20:33 M. pneumoniae (PCR) Not Detected (NotDetected) 04/05/23 20:33 Parainfluenza 1 (PCR) Not Detected (NotDetected) 04/05/23 20:33 Parainfluenza 2 (PCR) Not Detected (NotDetected) 04/05/23 20:33 Parainfluenza 3 (PCR) Not Detected (NotDetected) 04/05/23 20:33 Parainfluenza 4 (PCR) Not Detected (NotDetected) 04/05/23 20:33 RSV (PCR) Not Detected (NotDetected) 04/05/23 20:33 Entero/Rhino (PCR) Not Detected (NotDetected) 04/05/23 20:33 Impressions Chest X-Ray 04/05/23 20:25 XR chest 1V portable CLINICAL HISTORY: picc eval COMPARISON STUDY: Chest radiograph March 11, 2023. FINDINGS: No PICC is identified. There is a possible IV within the right antecubital fossa. No pneumothorax is present. There is a small left pleural effusion. Cardiomegaly is unchanged. No evidence for pulmonary edema. There is no consolidation to suggest pneumonia. IMPRESSION: 1. No PICC identified. Possible IV within the right antecubital fossa. 2. Small left pleural effusion. 3. Cardiomegaly. No radiographic evidence for pulmonary edema. ACT 112: Negative or not required by law. Electronically signed by: Gene Hastings M.D. 04/06/2023 6:42 AM KUB X-Ray 04/06/23 08:00 KUB CLINICAL HISTORY: Nausea. COMPARISON STUDY: CT of the abdomen and pelvis March 28, 2023. FINDINGS: Linear bibasilar densities favor atelectasis or scarring. There are cholecystectomy clips and a right femoral internal fixation. The bowel gas pattern is normal. There is minimal stool. No urinary calculi are identified. IMPRESSION: No evidence for a bowel obstruction. ACT 112: Negative or not required by law. Electronically signed by: Gene Hastings M.D. 04/06/2023 9:42 AM Abdomen/Pelvis CT 04/06/23 11:09 CT SCAN OF THE ABDOMEN AND PELVIS WITHOUT IV CONTRAST CLINICAL HISTORY: Follow-up diverticular abscess. COMPARISON STUDY: Multiple recent prior abdominal CT scans, most recently dated 03/28/2023. TECHNIQUE: Unenhanced CT scan of the abdomen and pelvis is performed from the lung bases to the proximal femora. Images are reviewed in the axial, sagittal, and coronal planes. IV contrast was not administered as per the referring clinician. Note that the examination was performed in significantly suboptimal fashion without oral and IV contrast. A dose lowering technique was utilized adhering to the principles of ALARA. CT DOSE: 721.51 mGy.cm FINDINGS: Lung bases: The heart is top normal in size and without pericardial effusion. The coronary arteries are denser calcified. There are trace pleural effusions with dependent atelectasis. No airspace consolidation is seen typical for pneumonia. A small hiatal hernia is noted. Liver: The unenhanced liver is normal in size, contour, and attenuation. Fatty infiltration is seen along the falciform ligament. There is no intrahepatic biliary ductal dilatation. Gallbladder: Surgically absent noting clips in the gallbladder fossa. Spleen: Normal in size and attenuation. Pancreas: The unenhanced pancreas is grossly unremarkable. Adrenal glands: Unremarkable. Kidneys: The unenhanced kidneys are normal in size and without hydronephrosis. No renal calculi are identified. Simple and complex bilateral renal cysts measure up to 3.4 cm Abdominal vasculature: The abdominal aorta is normal in course and caliber noting moderate atherosclerotic calcification. Bowel: There is moderate colonic diverticulosis. There is persistent wall thickening of the sigmoid colon with surrounding inflammation at site of previously characterized diverticulitis and abscess. A multiloculated intramural abscess is again suggested involving the rectosigmoid. This is difficult to delineate without IV contrast. The loculation along the left aspect of the sigmoid on image #270 measures at least 2.4 x 2.0 cm, and a loculation along the anterior aspect the rectosigmoid on image #285 measures at least 4.2 x 1.8 cm. These likely communicate. No bowel obstruction is seen. The appendix is well-visualized and normal. Peritoneum: There is no intraperitoneal free air or abdominal ascites. There is a small fat-containing abdominal hernia. Lymphadenopathy: None. Pelvic viscera: The bladder is distended but otherwise normal as imaged. The uterus and adnexa are normal as visualized. Skeletal structures: The skeletal structures are osteopenic. A mild compression deformity of L4 is unchanged. Mild to moderate lumbosacral spondylosis is observed. No lytic or blastic lesions are seen. There is chronic deformity and postsurgical change seen in the right proximal femur. There is also chronic deformity right posterior acetabular roof. IMPRESSION: 1. Significantly suboptimal examination without oral and IV contrast. 2. Wall thickening of the sigmoid colon with surrounding inflammation at the site of previously characterized diverticulitis is similar to the 03/28/2023 examination. 3. A multiloculated intramural abscess is again seen involving the sigmoid colon. This is difficult to characterize/delineate without IV contrast, but appears modestly decreased in size from 03/28/2023. See above. 4. No intraperitoneal free air is seen. 5. Trace pleural effusions. 6. Additional findings as above. ACT 112: Negative or not required by law. Electronically signed by: Juan Miguel Rodriguez M.D. 04/06/2023 2:03 PM
[2023-04-13] MEDS ORDERED: CASPOFUNGIN 70 MG in SODIUM CHLORIDE 0.9% 250 ML IV ONE (16:30)
[2023-04-13] MEDS ORDERED: POTASSIUM PHOSPHATE 30 MMOL in SODIUM CHLORIDE 0.9% 500 ML IV ONE (16:30)
--- NOTE | 2023-04-13 17:27 | Surgery Progress Note ---
Date of Service April 13, 2023 Assessment & Plan (1) Diarrhea: (2) Generalized weakness: (3) Nausea & vomiting: (4) Colonic diverticular abscess: Plan Plan is for partial colectomy tomorrow Remain on clears for today NPO after MN Hold Lovenox Admission and Anticipated Discharge Date Admission Date: April 06, 2023 Subjective Patient seen this am. Feels "ok". Still with c/o nausea. Physical Exam Constitutional: not ill appearing, not in distress and not diaphoretic afebrile Gastrointestinal (Abdomen): Benign Results & Data Vital Signs (Past 12 Hours) Vital Signs Temp Pulse Pulse Resp BP Pulse Ox O2 Del Method 04/13/23 15:26 36.8 C 95 H 16 104/65 91 Room Air 04/13/23 14:02 91 H 04/13/23 12:43 36.7 C 98 H 16 112/70 94 Room Air 04/13/23 07:57 36.7 C 96 H 16 124/78 96 Room Air 04/13/23 06:02 84 PG Care Time/CCT Total # of Minutes Spent Total Time Spent with Patient: Total time spent is greater than 50% in coordination of care (as documented) at patient's floor/unit and/or counseling patient: Coding [place] [address] SUB INP/OBS CARE 125MIN Patient Type Established History Problem Focused Exam Problem Focused Medical Decision Making Straight Forward Diagnoses Diarrhea R19.7 Generalized weakness R53.1 Nausea and vomiting, unspecified vomiting type R11.2 Vomiting type: unspecified Colonic diverticular abscess K57.20 (3) Nausea & vomiting Vomiting type: unspecified Qualified Code(s): R11.2 - Nausea with vomiting, unspecified
[2023-04-13] MEDS: MAGNESIUM SULFATE / D5W 1 GM/100 ML BAG IV SCH ×2 (18:14→20:17)
[2023-04-13] MEDS: ROSUVASTATIN CALCIUM 20 MG TAB PO SCH (20:17)
[2023-04-13] MEDS: ALBUT/IPRATROP 3MG/0.5MG NEB 3 ML VIAL NEB PRN (20:46)
[2023-04-14 05:24] LABS: Basophils # (auto) 0.06 K/uL (0.00-0.20); Basophils % (auto) 1.1 %; Eosinophils # (auto) 0.12 K/uL (0.00-0.50); Eosinophils % (auto) 2.2 %; Hematocrit (blood only) 26.6 % (37.0-47.0); Hemoglobin 8.8 g/dl (12.0-16.0); Immature Granulocytes # (auto) 0.02 K/uL (0.01-0.20); Immature Granulocytes % (auto) 0.4 %; Lymphocytes # (auto) 1.79 K/uL (1.20-3.40); Lymphocytes % (auto) 32.3 %; Mean Corpuscular Hemoglobin 28.2 pg (25.0-34.0); Mean Corpuscular Hgb Conc 33.1 g/dL (32.0-36.0); Mean Corpuscular Volume 85.3 fL (80.0-100.0); Mean Platelet Volume 9.9 fL (9.4-12.4); Monocytes # (auto) 0.39 K/uL (0.11-0.59); Neutrophils # (auto) 3.16 K/uL (1.40-6.50); Platelet Count 323 K/uL (130-400); RDW Coefficient of Variation 14.9 % (11.5-14.5); RDW Standard Deviation 45.8 fL (36.4-46.3); Red Blood Count 3.12 M/uL (4.20-5.40); White Blood Count 5.54 K/ul (4.8-10.8)
[2023-04-14 05:36] LABS: BUN Creatinine Ratio 13.3 (10-20); Calcium 7.2 mg/dl (8.6-10.3); Creatinine Clr Calc Pharmacy 91.5 ml/min; Est GFR (African American) 112.8 ml/min; Est GFR (Non-African American) 97.3 ml/min; Magnesium 2.1 mg/dl (1.7-2.4); Phosphorus 3.4 mg/dl (2.5-4.9); Potassium 3.6 mmol/L (3.5-5.1)
[2023-04-14] MEDS: FLUTICASONE FUROATE 200MCG 14 PUFFS/INHALER INH SCH (09:01)
[2023-04-14] MEDS: GLUCOSAMINE SULFATE 500 MG CAP PO SCH (09:01)
[2023-04-14] MEDS: ASCORBIC ACID 500 MG TAB PO SCH (09:01)
[2023-04-14] MEDS: CHOLECALCIFEROL 1,000 UNITS 25 MCG TAB PO SCH (09:01)
[2023-04-14] MEDS: ADVANCED PROBIOTIC 1250 MG CAPSULE PO SCH (09:01)
[2023-04-14] MEDS: UMECLIDINIUM/VILANTEROL 62.5/25MCG 7 PUFFS/INHALER INH SCH (09:02)
[2023-04-14] MEDS: MULTIVITAMIN TAB PO SCH (09:02)
[2023-04-14] MEDS: MONTELUKAST SODIUM 10 MG TABLET PO SCH (09:02)
[2023-04-14] MEDS: METOPROLOL SUCC 25MG EXT REL TAB PO SCH (09:02)
[2023-04-14] MEDS: PANTOprazole 40 MG TAB PO SCH ×2 (09:02→20:33)
--- NOTE | 2023-04-14 09:17 | History & Physical Bridge Note ---
Date of Service April 14, 2023 History & Physical Bridge Note I have examined the patient, reviewed the History & Physical and in the interval since the performance of the History & Physical I have noted the following changes of clinical significance: no changes . Patient is scheduled for exploratory laparoscopy, possible laparotomy, possible bowel resection, possible colostomy this am.
[2023-04-14] MEDS ORDERED: ERTAPENEM SODIUM 10 ML IV STA (09:32)
[2023-04-14] MEDS: LACTATED RINGER'S 1,000 ML IV SCH ×3 (09:49→16:45)
[2023-04-14] MEDS ORDERED: fentaNYL citrate PF 100 MCG/2 ML VIAL ONE ×3 (10:10→12:11)
[2023-04-14] MEDS ORDERED: ONDANSETRON INJ 2 MG/ML 2 ML VIAL ONE (10:10)
[2023-04-14] MEDS ORDERED: MIDAZOLAM HCL 1 MG/ML 2ML VIAL ONE (10:10)
[2023-04-14] MEDS ORDERED: LIDOCAINE 2% 2 ML VIAL/AMP(20MG/ML) INFIL ONE (10:11)
[2023-04-14] MEDS ORDERED: ROCURONIUM BROMIDE 10 MG/ML 5 ML VIAL IV ONE ×2 (10:11→10:51)
[2023-04-14] MEDS ORDERED: BUPIVACAINE 0.5 % 5 MG/1 ML MPF 30ML VIAL ONE (10:21)
--- NOTE | 2023-04-14 10:22 | Anesthesiology Consultation ---
Date of Service April 14, 2023 Assessment & Plan Chart Review Chart Review: Acceptable Risk for Surgery Consults Requested none History Surgery Operation Date: 04/12/23 12:50 Proposed Procedures p Colonoscopy - Lili Alegre DO Operation Date: 04/14/23 09:45 Proposed Procedures p Exploratory Laparoscopy, Possible Laparoscopic Colectomy, Possible Open, Possible Colostomy - Lili Alegre DO Height/Weight Height: 5 ft 2 in Weight: 62.868 kg Allergies Allergy/AdvReac Type Severity Reaction Status Date / Time amoxicillin Allergy Severe Itching Unverified 04/05/23 20:34 aspirin Allergy Mild wheeze Verified 04/05/23 20:34 Medications Home Medications Medication Instructions Recorded Confirmed Last Taken multivitamin 1 tab PO DAILY ##0 11/12/10 04/05/23 02/10/23 omega 6-prk-yjp-fish oil 1,000 mg 1 cap PO DAILY ##0 11/12/10 04/05/23 03/28/23 (120 mg-180 mg) capsule (Fish Oil) cholecalciferol (vitamin D3) 25 1,000 unit PO DAILY 01/25/19 04/05/23 03/28/23 mcg (1,000 unit) capsule (Vitamin D3) metoprolol succinate 25 mg 25 mg PO QAM 01/25/19 04/05/23 03/28/23 tablet,extended release 24 hr ascorbic acid (vitamin C) 250 mg 250 mg PO QAM 06/01/19 04/05/23 03/28/23 chewable tablet (Vitamin C) fluticasone propionate 50 1 spray intranasal DAILY PRN 06/01/19 04/05/23 02/10/23 mcg/actuation nasal Allergy Symptoms spray,suspension (Flonase Allergy Relief) glucosamine-chondroitin 250 mg-200 1 tab PO QAM 06/01/19 04/05/23 02/10/23 mg tablet (Osteo Bi-Flex) denosumab 60 mg/mL subcutaneous 60 mg subcut .[id number] 02/10/23 04/05/23 3 Months Ago syringe (Prolia) ~11/10/22 fluticasone fur. 200 mcg-umeclid 1 inh inhalation PM 02/10/23 04/05/23 04/04/23 62.5 mcg-vilant 25 mcg inhalat.powder (Trelegy Ellipta) rosuvastatin 20 mg tablet 20 mg PO HS 02/10/23 04/05/23 04/01/23 Lactobacillus acidophilus 1 1,000 mmu cells PO DAILY #7 caps 02/14/23 04/05/23 03/28/23 billion cell capsule cholecalciferol (vitamin D3) 125 5,000 unit PO QAM 30 days #30 tabs 03/29/23 04/05/23 03/28/23 mcg (5,000 unit) tablet pantoprazole 40 mg tablet,delayed 40 mg PO BID 30 days #60 tabs 03/29/23 04/05/23 03/28/23 release amoxicillin 875 mg-potassium 1 tab PO BID 04/06/23 04/06/23 Unknown clavulanate 125 mg tablet ciprofloxacin HCl 500 mg tablet 500 mg PO BID 04/06/23 04/06/23 Unknown montelukast 10 mg tablet 10 mg PO DAILY 04/06/23 04/06/23 Unknown Active Medications Generic Name Dose Route Start Last Admin Trade Name Fre PRN Reason Stop Dose Admin Acetaminophen 650 mg 04/06/23 04:13 04/08/23 20:41 Acetaminophen 325 Mg Tab PO 05/06/23 04:12 650 mg Q4H PRN Administration pain/fever Albuterol 3 ml 04/13/23 20:31 04/13/23 20:46 Albut/Ipratrop 3mg/0.5mg Neb 3 Ml Vial NEB 05/13/23 22:59 3 ml Q4R PRN Administration Shortness Of Breath Or Wheezing Protocol Ascorbic Acid 250 mg 04/06/23 09:00 04/14/23 09:01 Ascorbic Acid 500 Mg Tab PO 05/06/23 08:59 Not Given QAM ALFREDA Enoxaparin Sodium 40 mg 04/06/23 06:00 04/13/23 09:04 Enoxaparin Inj 40 Mg/0.4 Ml Syr SQ 05/06/23 05:59 40 mg Q24H ALFREDA Administration Fluticasone Furoate 1 puffs 04/06/23 09:00 04/14/23 09:01 Fluticasone Furoate 200mcg 14 Puffs/Inhaler INH 05/06/23 08:59 Not Given DAILY ALFREDA Fluticasone Propionate 1 sprays 04/06/23 04:13 04/06/23 08:38 Fluticasone Propionate Na Spr 16 Gm Btl NA 05/06/23 04:12 1 sprays DAILY PRN Administration Allergy Symptoms Glucosamine Sulfate 500 mg 04/06/23 09:00 04/14/23 09:01 Glucosamine Sulfate 500 Mg Cap PO 05/06/23 08:59 Not Given QAM ALFREDA Promethazine HCl 6.25 mg/ 50.25 mls @ 201 mls/hr 04/07/23 20:13 04/11/23 19:50 Sodium Chloride IV 05/07/23 20:12 Infused Q6H PRN Infusion Nausea And Vomiting Lactated Ringer's 1,000 mls @ 15 mls/hr 04/14/23 10:00 04/14/23 09:49 Lr IV 05/14/23 09:59 15 mls/hr .Q24H ALFREDA Administration KVO Lactobacillus Acidophilus 2 cap 04/06/23 09:00 04/14/23 09:01 Advanced Probiotic 1250 Mg Capsule PO 05/06/23 08:59 Not Given DAILY [facility] Loperamide HCl 2 mg 04/09/23 00:22 04/09/23 11:04 Loperamide Hcl 2 Mg Cap PO 05/09/23 00:21 2 mg UD PRN Administration Loose Stool Metoprolol Succinate 25 mg 04/06/23 09:00 04/14/23 09:02 Metoprolol Succ 25mg Ext Rel Tab PO 05/06/23 08:59 Not Given QAM [facility] Montelukast Sodium 10 mg 04/06/23 09:00 04/14/23 09:02 Montelukast Sodium 10 Mg Tablet PO 05/06/23 08:59 Not Given DAILY [facility] Multivitamins 1 tab 04/06/23 09:00 04/14/23 09:02 Multivitamin Tab PO 05/06/23 08:59 Not Given DAILY [facility] Pantoprazole Sodium 40 mg 04/06/23 09:00 04/14/23 09:02 Pantoprazole 40 Mg Tab PO 05/06/23 08:59 Not Given BID ALFREDA Potassium Chloride 20 meq 04/08/23 09:00 04/10/23 20:24 Potassium Chloride Crtab 20 Meq Tabcr PO 05/08/23 08:59 20 meq TID ALFREDA Administration Potassium Phosphate 2 tab 04/07/23 13:00 04/07/23 20:02 Pot Phosphate Monobasic W/ Sod Tab PO 05/07/23 12:59 2 tab QID ALFREDA Administration Rosuvastatin Calcium 20 mg 04/06/23 21:00 04/13/23 20:17 Rosuvastatin Calcium 20 Mg Tab PO 05/06/23 20:59 20 mg HS ALFREDA Administration Umeclidinium/Vilanterol 1 puffs 04/06/23 09:00 04/14/23 09:02 Umeclidinium/Vilanterol 62.5/25mcg 7 Puffs/Inhaler INH 05/06/23 08:59 Not Given DAILY ALFREDA Vitamin D 1,000 units 04/06/23 09:00 04/14/23 09:01 Cholecalciferol 1,000 Units 25 Mcg Tab PO 05/06/23 08:59 Not Given DAILY ALFREDA NPO Date Last Intake of Fluids: 04/13/23 Time Last Intake of Fluids: 19:00 Last Intake of Fluids Comment: 0815 am med sip water Date Last Intake of Solids: 04/13/23 Time Last Intake of Solids: 19:00 Past Medical History Medical History (Updated 04/12/23 @ 13:37 by Lili Alegre DO) Osteoporosis COPD (chronic obstructive pulmonary disease) Chronic sinusitis Asthma Diverticulitis Degenerative arthritis of knee, bilateral Trochanteric bursitis, right hip Osteoarthritis GERD (gastroesophageal reflux disease) Hyperlipidemia Hypertension Past Family History Family History Other Family history non-contributory Past Surgical History Surgical History (Updated 04/13/23 @ 10:09 by Yolette Jarquin RN) H/O esophagogastroduodenoscopy (03/25/23) Esophagogastroduodenoscopy(Not Applicable) - Lili Alegre DO Hx laparoscopic cholecystectomy (03/08/23) Laparoscopic Cholecystectomy - Lili Alegre DO Hx of colonoscopy (04/12/23) Dr. Alegre incomplete, see report History of open reduction and internal fixation (ORIF) procedure RIGHT HIP Hx of sinus surgery Social History Smoking Status: Never smoker Do You Dip or Chew Tobacco: No Hx Alcohol Use: No Alcohol type: wine alcohol intake frequency: holidays/special occasions only Hx Substance Use: No substance use type: does not use Physical Exam Vital Signs Last Vital Signs Temp 36.5 C 04/14/23 09:13 Pulse 96 H 04/14/23 09:13 Resp 20 04/14/23 09:13 BP 131/85 04/14/23 09:13 Pulse Ox 94 04/14/23 09:13 O2 Del Method Room Air 04/14/23 09:13 O2 Flow Rate 3 04/12/23 14:30 Testing Laboratory Results 04/14/23 04:21 04/14/23 04:21 PT 12.3 Seconds (9.0-12.0) H 04/05/23 17:16 INR 1.1 (0.9-1.1) 04/05/23 17:16 Urine Color Yellow 04/06/23 16:05 Urine Appearance Clear (Clear) 04/06/23 16:05 Urine pH 6.5 (4.5-7.5) 04/06/23 16:05 Ur Specific [place] 1.008 (1.000-1.030) 04/06/23 16:05 Urine Protein Negative (Negative) 04/06/23 16:05 Urine Glucose (UA) Negative (Negative) 04/06/23 16:05 Urine Ketones Negative (Negative) 04/06/23 16:05 Urine Nitrite Negative (Negative) 04/06/23 16:05 Ur Leukocyte Esterase 2+ (Negative) H 04/06/23 16:05 Urine WBC (Auto) >30 /hpf (0-5) H 04/06/23 16:05 Urine RBC (Auto) 0-4 /hpf (0-4) 04/06/23 16:05 U Hyaline Cast (Auto) 1-5 /lpf (0-5) 04/06/23 16:05 U Epithel Cells (Auto) 10-20 /lpf (0-5) H 04/06/23 16:05 Urine Bacteria (Auto) Negative (Negative) 04/06/23 16:05 Blood Type O Positive 04/14/23 04:21 Antibody Screen NEGATIVE 04/14/23 04:21 04/12/23 14:12 Gram Stain - Final Fluid,Undescribed Aerobic and Anaerobic Culture - Preliminary Yumiko albicans/dubliniensis 04/06/23 16:05 Urine Culture - Preliminary Urine,Clean Catch Yumiko glabrata complex
[2023-04-14] MEDS ORDERED: HYDROmorphone INJ 2 MG/ML SYR/VIAL IV PRN ×2 (10:55→16:03)
[2023-04-14] MEDS ORDERED: PROMETHAZINE HCL 12.5 MG in SODIUM CHLORIDE 0.9% 50 ML IV PRN (10:55)
[2023-04-14] MEDS ORDERED: ePHEDrine sulfate 50 MG/ML AMP IV PRN ×2 (10:55→16:03)
[2023-04-14] MEDS ORDERED: ATROPINE SULFATE 0.1 MG/ML 10ML SYR IV PRN ×2 (10:55→16:03)
[2023-04-14] MEDS ORDERED: ONDANSETRON INJ 2 MG/ML 2 ML VIAL IV PRN ×2 (10:55→16:03)
[2023-04-14] MEDS ORDERED: KETOROLAC 30 MG/ML VIAL IV PRN (10:55)
[2023-04-14] MEDS ORDERED: fentaNYL citrate PF 100 MCG/2 ML VIAL IV PRN (10:55)
--- NOTE | 2023-04-14 13:19 | Hospitalist Progress Note ---
Date of Service April 14, 2023 Assessment & Plan (1) Generalized weakness: Plan: 77-year-old female with past med significant for hyperlipidemia, asthma mild persistent, chronic sinusitis, history of CAD, patent foramen ovale, atrial septal aneurysm, GERD, diverticulitis of sigmoid colon, osteoporosis, aspirin contraindicated, presents with nausea and weakness and not feeling well. Patient had prolonged antibiotic course for diverticular abscess. She was admitted initially on February [address] [facility] for diverticular abscess treated with Vanco cefepime and metronidazole and she was discharged on cefdinir and metronidazole. She followed with PCP for abdominal pain March 03. CT scan showed diffuse diverticulitis with abscess abscess measuring 3.2 x 2.0 x 3.4 cm. Patient was admitted to [facility]. CT scan also showed some nonspecific GALLBLADDER wall thickening. She had cholecystectomy on 03/08. 03/12/23 had worsening nausea and abdominal pain and repeat his CAT scan showed increasing diverticular abscess to 2.6 x 4.7 cm. General surgery consulted and advised for transfer to [place] for IR drainage. At [place] IR drainage was deemed unsuitable due to its intramural location. ID was consulted. ID recommended IV Invanz. Had PICC line and was discharged. ID recommended Invanz for 21 days. Again she was admitted [facility] on 03/22/23 for weakness and abdominal pain. ID was consulted and Invanz was changed to Cipro and Flagyl due to nausea. As Patient having persistent nausea and poor appetite on March 28 GI was consulted. Repeat CT scan showed increased size of abscess. GI recommended advanced endoscopist for possible drainage. And she was transferred to [place] on March 29. At [place] antibiotics were changed Zosyn after testing for allergy. GI attempted lower endoscopy / endoscopic ultrasound and flexible sigmoidoscopy on 04/01/23 but was not completed due to severe diverticulosis in the sigmoid colon with narrowing of colon and spasm. IR attempted percutaneous drainage but this was aborted as a repeat CT demonstrated no abscess to drain. It was thought that abscess may have self drained after manipulation by GI. Zosyn was switched to p.o. Cipro and Augmentin and was stable to discharge 2022 for total of 9 more days of p.o. antibiotics. Presented to [facility] again with generalized weakness, nausea and poor appetite Repeated diverticular abscess Possible colovaginal abscess Status post exploratory Laparoscopy with colectomy on April 14, 2023 Multiple hospitalizations in the last 2-month due to diverticular abscess as in listed above Status post Augmentin and Cipro (Completed on April 11, 2023) Repeat CT abdomen and pelvis done during the hospitalization; wall thickening of sigmoid colon with surrounding inflammation. Multiloculated intramural abscess in sigmoid colon as well. Underwent colonoscopy by surgery on April 12urulent discharge from vagina during colonoscopy manipulation. Suspect potential fistula to the vagina. Culture from the colonoscopy shows Yumiko albicans/dublinensis Started on Caspofungin; infectious disease consulted for comanagement Pain control PT OT evaluation Management of drain as per surgery HYPOKALEMIA, HYPOCALCEMIA, HYPOPHOSPHATEMIA, HYPOMAGNESEMIA Labs reviewed Replacement ordered Nephrology also consulted ABNORMAL EKG Nonspecific ST-T wave changes Denies cardiac symptoms History of CAD On statin, beta-elisabeth GERD Protonix Hyperlipidemia On statin History of asthma Home inhalers On montelukast Right kidney lesion On the CAT scan previous admission Needs follow-up DVT prophylaxis Lovenox Disposition Patient underwent colectomy today. Will need close monitoring postoperatively. Repeat PT OT evaluation; may need rehab at discharge. Infectious disease consultation is still pending. Time spent evaluating patient, direct bedside care, chart review, placing orders, interpretation of diagnostic studies, discussion with consultants, patient, and family members, as well as other required patient management activities is 60 minutes Please note the above document was generated using voice recognition software. It may contain grammatical, syntax or spelling errors. Any formal questions or concerns about the content, text or information contained within the body of this dictation should be directly addressed to the provider for clarification Admission and Anticipated Discharge Date Admission Date: April 06, 2023 Subjective Patient seen after the OR. She is lying in the bed comfortably; not in distress. Patient denies any pain. Appears to be comfortable Review of Systems Review of Systems: All systems reviewed & are unremarkable except as noted in Subjective Physical Exam Physical Exam: General- oriented x 3, not in distress, speaks in sentences with no effort or accessory muscle use Eyes- anicteric Neck- no JVD Lungs- clear breath sounds bilaterally Heart- normal rate, regular rhythm; no murmurs Abdomen-colostomy present, PATRICIA drain in place Extremities- no pretibial edema, no calf tenderness Neuro- alert, oriented x 3; no gross focal neurologic deficits Skin- warm & dry Results & Data Results & Data Vital Signs (Past 12 Hours) Vital Signs Temp Pulse Pulse Pulse Resp BP Pulse Ox 04/14/23 09:13 36.5 C 96 H 20 131/85 94 04/14/23 09:03 04/14/23 07:45 37.1 C 79 16 109/87 93 04/14/23 07:00 79 04/14/23 03:53 36 C L 89 16 120/76 93 O2 Del Method 04/14/23 09:13 Room Air 04/14/23 09:03 Room Air 04/14/23 07:45 Room Air 04/14/23 07:00 04/14/23 03:53 Room Air Laboratory Results Laboratory Results WBC 5.54 K/ul (4.8-10.8) 04/14/23 04:21 RBC 3.12 M/uL (4.20-5.40) L 04/14/23 04:21 Hgb 8.8 g/dl (12.0-16.0) L 04/14/23 04:21 Hct 26.6 % (37.0-47.0) L 04/14/23 04:21 MCV 85.3 fL (80.0-100.0) 04/14/23 04:21 MCH 28.2 pg (25.0-34.0) 04/14/23 04:21 MCHC 33.1 g/dL (32.0-36.0) 04/14/23 04:21 RDW Std Deviation 45.8 fL (36.4-46.3) 04/14/23 04:21 RDW Coeff of Edgard 14.9 % (11.5-14.5) H 04/14/23 04:21 Plt Count 323 K/uL (130-400) 04/14/23 04:21 MPV 9.9 fL (9.4-12.4) 04/14/23 04:21 Immature Gran % (Auto) 0.4 % 04/14/23 04:21 Neut % (Auto) 57.0 % 04/14/23 04:21 Lymph % (Auto) 32.3 % 04/14/23 04:21 Gooding % (Auto) 7.0 % 04/14/23 04:21 Eos % (Auto) 2.2 % 04/14/23 04:21 Baso % (Auto) 1.1 % 04/14/23 04:21 Neut # (Auto) 3.16 K/uL (1.40-6.50) 04/14/23 04:21 Lymph # (Auto) 1.79 K/uL (1.20-3.40) 04/14/23 04:21 Gooding # (Auto) 0.39 K/uL (0.11-0.59) 04/14/23 04:21 Eos # (Auto) 0.12 K/uL (0.00-0.50) 04/14/23 04:21 Baso # (Auto) 0.06 K/uL (0.00-0.20) 04/14/23 04:21 Immature Gran # (Auto) 0.02 K/uL (0.01-0.20) 04/14/23 04:21 PT 12.3 Seconds (9.0-12.0) H 04/05/23 17:16 INR 1.1 (0.9-1.1) 04/05/23 17:16 Sodium 138 mmol/L (136-145) 04/14/23 04:21 Potassium 3.6 mmol/L (3.5-5.1) 04/14/23 04:21 Chloride 109 mmol/L (98-107) H 04/14/23 04:21 Carbon Dioxide 21 mmol/L (21-32) 04/14/23 04:21 Anion Gap 8 (3-11) 04/14/23 04:21 BUN 6 mg/dl (6-23) 04/14/23 04:21 Creatinine 0.45 mg/dl (0.6-1.2) L 04/14/23 04:21 Est Cr Clr Drug Dosing 91.5 ml/min 04/14/23 04:21 Est GFR ( Amer) 112.8 ml/min 04/14/23 04:21 Est GFR (Non-Af Amer) 97.3 ml/min 04/14/23 04:21 BUN/Creatinine Ratio 13.3 (10-20) 04/14/23 04:21 Glucose 88 mg/dl (70-99(Fasting)) 04/14/23 04:21 Calcium 7.2 mg/dl (8.6-10.3) L 04/14/23 04:21 Ionized Calcium 0.94 mmol/L (1.12-1.32) L 04/06/23 09:20 Phosphorus 3.4 mg/dl (2.5-4.9) D 04/14/23 04:21 Magnesium 2.1 mg/dl (1.7-2.4) 04/14/23 04:21 Total Bilirubin 0.7 mg/dl (0.2-1.0) 04/10/23 05:12 AST 13 U/L (13-39) 04/10/23 05:12 ALT 5 U/L (7-52) L 04/10/23 05:12 Alkaline Phosphatase 62 U/L (34-104) 04/10/23 05:12 Troponin I High Sens 8.0 pg/ml (0-14) 04/06/23 06:52 Total Protein 5.5 gm/dl (6.0-8.3) L 04/10/23 05:12 Albumin 2.9 gm/dl (3.4-5.0) L 04/10/23 05:12 Globulin 2.6 gm/dl (2.5-4.0) 04/10/23 05:12 Albumin/Globulin Ratio 1.1 (0.9-2) 04/10/23 05:12 25-OH Vitamin D Total 55.7 ng/ml (30-100) 04/07/23 05:31 PTH Intact 259.9 pg/ml (12.0-88.0) H 04/07/23 05:31 Urine Color Yellow 04/06/23 16:05 Urine Appearance Clear (Clear) 04/06/23 16:05 Urine pH 6.5 (4.5-7.5) 04/06/23 16:05 Ur Specific [place] 1.008 (1.000-1.030) 04/06/23 16:05 Urine Protein Negative (Negative) 04/06/23 16:05 Urine Glucose (UA) Negative (Negative) 04/06/23 16:05 Urine Ketones Negative (Negative) 04/06/23 16:05 Urine Blood Negative (Negative) 04/06/23 16:05 Urine Nitrite Negative (Negative) 04/06/23 16:05 Urine Bilirubin Negative (Negative) 04/06/23 16:05 Urine Urobilinogen Negative (Negative) 04/06/23 16:05 Ur Leukocyte Esterase 2+ (Negative) H 04/06/23 16:05 Urine WBC (Auto) >30 /hpf (0-5) H 04/06/23 16:05 Urine RBC (Auto) 0-4 /hpf (0-4) 04/06/23 16:05 U Hyaline Cast (Auto) 1-5 /lpf (0-5) 04/06/23 16:05 U Epithel Cells (Auto) 10-20 /lpf (0-5) H 04/06/23 16:05 Urine Bacteria (Auto) Negative (Negative) 04/06/23 16:05 Urine Yeast Present (None Prsent) A 04/06/23 16:05 Stl C. cayetanensis PCR Not Detected (NotDetected) 04/08/23 04:13 Stool Rotavirus A PCR Not Detected (NotDetected) 04/08/23 04:13 Stl Adenov F 40/41 PCR Not Detected (NotDetected) 04/08/23 04:13 Stool Astrovirus (PCR) Not Detected (NotDetected) 04/08/23 04:13 Stool Campylobacter PCR Not Detected (NotDetected) 04/08/23 04:13 Stl C. diff Tox B Gene Negative Cdiff Gene (Neg) 04/08/23 04:13 Stool Cryptosporidium PCR Not Detected (NotDetected) 04/08/23 04:13 Stl E.coli Shiga Tox PCR Not Detected (NotDetected) 04/08/23 04:13 Stl Enterotoxigenic E PCR Not Detected (NotDetected) 04/08/23 04:13 Stool EPEC (PCR) Not Detected (NotDetected) 04/08/23 04:13 Stool EAEC (PCR) Not Detected (NotDetected) 04/08/23 04:13 Stl E. histolytica PCR Not Detected (NotDetected) 04/08/23 04:13 Stool Giardia Lamblia PCR Not Detected (NotDetected) 04/08/23 04:13 Stool Salmonella PCR Not Detected (NotDetected) 04/08/23 04:13 Stool Sapovirus (PCR) Not Detected (NotDetected) 04/08/23 04:13 Stl P. shigelloides PCR Not Detected (NotDetected) 04/08/23 04:13 Stl Shigella/EIEC PCR Not Detected (NotDetected) 04/08/23 04:13 St Y.enterocolitica PCR Not Detected (NotDetected) 04/08/23 04:13 Stool Vibrio (PCR) Not Detected (NotDetected) 04/08/23 04:13 Stl Vibrio cholerae PCR Not Detected (NotDetected) 04/08/23 04:13 Stl Norovirus GI/GII PCR Not Detected (NotDetected) 04/08/23 04:13 Adenovirus (PCR) Not Detected (NotDetected) 04/05/23 20:33 B. pertussis DNA (PCR) Not Detected (NotDetected) 04/05/23 20:33 B.parapertussis DNA PCR Not Detected (NotDetected) 04/05/23 20:33 C. pneumoniae DNA (PCR) Not Detected (NotDetected) 04/05/23 20:33 Coronavirus OC43 (PCR) Not Detected (NotDetected) 04/05/23 20:33 Coronavirus HKU1 (PCR) Not Detected (NotDetected) 04/05/23 20:33 Coronavirus 229E (PCR) Not Detected (NotDetected) 04/05/23 20:33 SARS-CoV-2 (PCR) Not Detected (NotDetected) 04/05/23 20:33 Coronavirus NL63 (PCR) Not Detected (NotDetected) 04/05/23 20:33 Human Metapneumovir PCR Not Detected (NotDetected) 04/05/23 20:33 Influenza Type A (PCR) Not Detected (NotDetected) 04/05/23 20:33 Influenza Type B (PCR) Not Detected (NotDetected) 04/05/23 20:33 M. pneumoniae (PCR) Not Detected (NotDetected) 04/05/23 20:33 Parainfluenza 1 (PCR) Not Detected (NotDetected) 04/05/23 20:33 Parainfluenza 2 (PCR) Not Detected (NotDetected) 04/05/23 20:33 Parainfluenza 3 (PCR) Not Detected (NotDetected) 04/05/23 20:33 Parainfluenza 4 (PCR) Not Detected (NotDetected) 04/05/23 20:33 RSV (PCR) Not Detected (NotDetected) 04/05/23 20:33 Entero/Rhino (PCR) Not Detected (NotDetected) 04/05/23 20:33 Blood Type O Positive 04/14/23 04:21 Antibody Screen NEGATIVE 04/14/23 04:21 Impressions Chest X-Ray 04/05/23 20:25 XR chest 1V portable CLINICAL HISTORY: picc eval COMPARISON STUDY: Chest radiograph March 11, 2023. FINDINGS: No PICC is identified. There is a possible IV within the right antecubital fossa. No pneumothorax is present. There is a small left pleural effusion. Cardiomegaly is unchanged. No evidence for pulmonary edema. There is no consolidation to suggest pneumonia. IMPRESSION: 1. No PICC identified. Possible IV within the right antecubital fossa. 2. Small left pleural effusion. 3. Cardiomegaly. No radiographic evidence for pulmonary edema. ACT 112: Negative or not required by law. Electronically signed by: Gene Hastings M.D. 04/06/2023 6:42 AM KUB X-Ray 04/06/23 08:00 KUB CLINICAL HISTORY: Nausea. COMPARISON STUDY: CT of the abdomen and pelvis March 28, 2023. FINDINGS: Linear bibasilar densities favor atelectasis or scarring. There are cholecystectomy clips and a right femoral internal fixation. The bowel gas pattern is normal. There is minimal stool. No urinary calculi are identified. IMPRESSION: No evidence for a bowel obstruction. ACT 112: Negative or not required by law. Electronically signed by: Gene Hastings M.D. 04/06/2023 9:42 AM Abdomen/Pelvis CT 04/06/23 11:09 CT SCAN OF THE ABDOMEN AND PELVIS WITHOUT IV CONTRAST CLINICAL HISTORY: Follow-up diverticular abscess. COMPARISON STUDY: Multiple recent prior abdominal CT scans, most recently dated 03/28/2023. TECHNIQUE: Unenhanced CT scan of the abdomen and pelvis is performed from the lung bases to the proximal femora. Images are reviewed in the axial, sagittal, and coronal planes. IV contrast was not administered as per the referring clinician. Note that the examination was performed in significantly suboptimal fashion without oral and IV contrast. A dose lowering technique was utilized adhering to the principles of ALARA. CT DOSE: 721.51 mGy.cm FINDINGS: Lung bases: The heart is top normal in size and without pericardial effusion. The coronary arteries are denser calcified. There are trace pleural effusions with dependent atelectasis. No airspace consolidation is seen typical for pneumonia. A small hiatal hernia is noted. Liver: The unenhanced liver is normal in size, contour, and attenuation. Fatty infiltration is seen along the falciform ligament. There is no intrahepatic biliary ductal dilatation. Gallbladder: Surgically absent noting clips in the gallbladder fossa. Spleen: Normal in size and attenuation. Pancreas: The unenhanced pancreas is grossly unremarkable. Adrenal glands: Unremarkable. Kidneys: The unenhanced kidneys are normal in size and without hydronephrosis. No renal calculi are identified. Simple and complex bilateral renal cysts measure up to 3.4 cm Abdominal vasculature: The abdominal aorta is normal in course and caliber noting moderate atherosclerotic calcification. Bowel: There is moderate colonic diverticulosis. There is persistent wall thickening of the sigmoid colon with surrounding inflammation at site of pr eviously characterized diverticulitis and abscess. A multiloculated intramural abscess is again suggested involving the rectosigmoid. This is difficult to delineate without IV contrast. The loculation along the left aspect of the sigmoid on image #270 measures at least 2.4 x 2.0 cm, and a loculation along the anterior aspect the rectosigmoid on image #285 measures at least 4.2 x 1.8 cm. These likely communicate. No bowel obstruction is seen. The appendix is well- visualized and normal. Peritoneum: There is no intraperitoneal free air or abdominal ascites. There is a small fat-containing abdominal hernia. Lymphadenopathy: None. Pelvic viscera: The bladder is distended but otherwise normal as imaged. The uterus and adnexa are normal as visualized. Skeletal structures: The skeletal structures are osteopenic. A mild compression deformity of L4 is unchanged. Mild to moderate lumbosacral spondylosis is observed. No lytic or blastic lesions are seen. There is chronic deformity and postsurgical change seen in the right proximal femur. There is also chronic deformity right posterior acetabular roof. IMPRESSION: 1. Significantly suboptimal examination without oral and IV contrast. 2. Wall thickening of the sigmoid colon with surrounding inflammation at the site of previously characterized diverticulitis is similar to the 03/28/2023 examination. 3. A multiloculated intramural abscess is again seen involving the sigmoid colon. This is difficult to characterize/delineate without IV contrast, but appears modestly decreased in size from 03/28/2023. See above. 4. No intraperitoneal free air is seen. 5. Trace pleural effusions. 6. Additional findings as above. ACT 112: Negative or not required by law. Electronically signed by: Juan Miguel Rodriguez M.D. 04/06/2023 2:03 PM
[2023-04-14] MEDS ORDERED: HYDROmorphone INJ 1 MG/ML SYRINGE ONE (14:11)
[2023-04-14] MEDS ORDERED: PHENYLEPHRINE 100MCG/ML 10ML SYR IV ONE (14:15)
[2023-04-14] MEDS ORDERED: NEOSTIGMINE METHYLSULFATE 1 MG/ML 10ML VIAL ONE (14:15)
[2023-04-14] MEDS ORDERED: GLYCOPYRROLATE 0.2 MG/ML VIAL ONE (14:15)
--- NOTE | 2023-04-14 14:44 | Post Operative Brief Note ---
PG Immediate Post Op with CF Date of Surgery April 14, 2023 Pre & Post Diagnosis Operation Date: 04/14/23 09:45 Pre-Op Diagnosis: Colonic diverticular abscess I identified the patient and participated in the time-out.: Yes Procedure Operation Date: 04/14/23 09:45 Actual Procedures p Exploratory Laparoscopy, Laparoscopic Colectomy - Lili Alegre DO Surgeon Lili Alegre DO Spike Machine Feeder No medical surgical tech Estimated Blood Loss 40 Findings See Below Dense adhesions to the ureter and iliac artery. Thickened colon. Specimens Specimen Description: A. Sigmoid Colon Drains Echevarria Catheter and Stanley-Hurt Drain Anesthesia Type General Complications None
[2023-04-14] MEDS ORDERED: HYDROmorphone INJ 0.5 MG/0.5 ML SYR IM PRN (14:58)
[2023-04-14] MEDS ORDERED: HYDROmorphone INJ 1 MG/ML SYRINGE IV PRN (14:58)
[2023-04-14] MEDS: CASPOFUNGIN 50 MG in SODIUM CHLORIDE 0.9% 250 ML IV SCH (15:01)
[2023-04-14] MEDS ORDERED: PROMETHAZINE HCL INJ 25 MG/ML 1 ML VIAL ONE (15:09)
[2023-04-14] MEDS ORDERED: SODIUM CHLORIDE 0.9% 50 ML BAG ONE (15:09)
[2023-04-14] MEDS: PROMETHAZINE HCL 6.25 MG in SODIUM CHLORIDE 0.9% 50 ML IV PRN (15:15)
[2023-04-14] MEDS ORDERED: HYDROmorphone INJ 0.5 MG/0.5 ML SYR IV PRN (15:57)
--- NOTE | 2023-04-14 16:10 | Anesthesiology Progress Note ---
Date of Service April 14, 2023 Anesthesia Post Procedure Vital Signs Vital Signs: Temp Pulse Pulse Pulse Resp BP Pulse Ox 04/14/23 15:45 95 H 22 151/72 H 94 04/14/23 15:35 108 H 25 H 141/91 H 95 04/14/23 15:25 110 H 23 145/97 H 97 04/14/23 15:15 109 H 23 158/94 H 97 04/14/23 15:05 110 H 24 155/97 H 97 04/14/23 14:55 111 H 23 162/98 H 96 04/14/23 14:49 97.3 F L 106 H 25 H 140/101 H 96 04/14/23 09:13 97.7 F 96 H 20 131/85 94 04/14/23 09:03 04/14/23 07:45 98.8 F 79 16 109/87 93 04/14/23 07:00 79 04/14/23 03:53 96.8 F L 89 16 120/76 93 04/13/23 23:57 97.7 F 91 H 16 117/71 91 04/13/23 22:30 04/13/23 22:00 83 04/13/23 20:47 89 18 92 04/13/23 19:58 98.2 F 89 18 114/71 92 O2 Del Method O2 Flow Rate 04/14/23 15:45 Nasal Cannula 2 04/14/23 15:35 Nasal Cannula 2 04/14/23 15:25 Nasal Cannula 2 04/14/23 15:15 Oxymask 6 04/14/23 15:05 Oxymask 6 04/14/23 14:55 Oxymask 10 04/14/23 14:49 Oxymask 10 04/14/23 09:13 Room Air 04/14/23 09:03 Room Air 04/14/23 07:45 Room Air 04/14/23 07:00 04/14/23 03:53 Room Air 04/13/23 23:57 Room Air 04/13/23 22:30 Room Air 04/13/23 22:00 04/13/23 20:47 Room Air 04/13/23 19:58 Room Air Pain Intensity Abdomen: Pain Intensity: 5 Transfer of Care Handoff Completed per policy Notes Mental Status: alert / awake / arousable and participated in evaluation Patient Amnestic to Procedure: Yes Nausea / Vomiting: adequately controlled Pain: adequately controlled Airway Patency, RR, SpO2: stable & adequate BP & HR: stable & adequate Hydration State: stable & adequate Anesthetic Complications: no major complications apparent and Pt Satisfied with anesthetic care
--- NOTE | 2023-04-14 16:33 | Operative Report ---
PG Post Operative Report Pre & Post Diagnosis Operation Date: 04/14/23 09:45 Pre-Op Diagnosis: Colonic diverticular abscess Post-Op Diagnosis: Sigmoid abscess I identified the patient and participated in the time-out.: Yes Procedure Operation Date: 04/14/23 09:45 Actual Procedures p Exploratory Laparoscopy, Laparoscopic Colectomy - Lili Alegre DO Surgeon Lili Alegre, At Risk Specialist No s Dr. Yu Estimated Blood Loss 40 Findings See Below Specimens Sigmoid colon Drains 10 Faroese round PATRICIA Anesthesia Type General Complications None Indications Ongoing diverticulitis with abscess with multiple repeat hospital admissions over the last 2 months. Will patient getting weaker and inability to tolerate oral intake on antibiotics. Description of Procedure The patient was brought back to the operating room and placed on the operating room table in supine position. SCDs were applied to bilateral lower extremities. The patient was connected to cardiac and oxygen monitoring. Supplemental O2 was administered and general anesthesia was provided. A secured airway was obtained. A Echevarria catheter was inserted. The abdomen was prepped and draped in typical sterile fashion. A timeout was conducted. Veress needle was used to gain intra-abdominal access. Pneumoperitoneum was established vertical pressure 15 mmHg. A 5 mm trocar was inserted using a Visiport and direct visualization. A 5 mm laparoscope was used to survey the intra-abdominal space. Upon initial entry there was no obvious pathology. No intra-abdominal purulent fluid. 2 additional 5 mm trocars were inserted at the suprapubic space and right lower quadrant under direct visualization. The patient was placed in reverse Trendelenburg and right side down. The small bowel was moved away from the pelvis to the right upper quadrant and the sigmoid colon was identified containing large, swollen diverticulum. The sigmoid colon was adhesed to the left pelvic sidewall. An additional 5 mm trocar was inserted the left upper quadrant. The sigmoid colon was elevated as much as it could be way from the retroperitoneum and pelvic sidewall. Using a harmonic and blunt dissection, slow and steady dissection was used to remove the upper left lateral pole of the uterus from the colon as well as the left ovary and fallopian tube. Bleeding was controlled with cautery.There was very dense, hard, concrete like pericolic adhesion to the peritoneal tissues overlying the ureter and left iliac artery. Slow and steady blood dissection eventually began to tease away this area to move the iliac artery and ureter out of the way. A medial approach was then undertaken to enter the colon mesentery and the dissection was able to progress to the left lateral pelvic sidewall. Eventually a clear path was obtained. The mesentery to the colon was taken down using a LigaSure. The dense area was again encountered from this vantage point and was carefully dissected down double checking both the medial lateral aspects to ensure that the ureter and left iliac artery were not involved and LigaSure dissection. This proved to be a chronically inflamed abscess cavity with no significant purulent fluid within it. A 12 mm trocar was inserted at the left mid quadrant expected site for colostomy. The dissection was carried down to the rectum. A purple loaded 60 mm laparoscopic CHARLA was used to transect the colon at the level of the upper rectum. The 12 mm trocar was removed and this incision was brought in to except the colon. The distal end of the colon was brought up through this incision and transection was made in a healthy area of descending colon. Specimen was sent to pathology for further analysis and a labeled container. The laparoscope was reinserted into the abdomen. The abdomen was checked for hemostasis. There was no active bleeding noted. A 10 Faroese round PATRICIA drain was inserted to the pelvis through the suprapubic trocar site. Excess air was evacuated from the abdomen and trocars were all removed. A silk suture was applied to the medial aspect of the rectus muscle to tack the colon to this area. The colostomy was matured using 4-0 Vicryl suture. The abdomen was cleaned with a saline soaked lap pad and dried. A stoma device was applied to the colostomy site. The laparoscopic incisions were closed with 4-0 Vicryl at the skin and sealed with Dermabond glue. The patient tolerated the procedure well. She was awakened from anesthesia, the secure airway was removed and she was transferred to recovery in stable condi tion The sales assistants and salespersons provided assistance through all steps of the case. Provided exposure for accurate dissection, mobilization of the left colon and creation of the defect for colostomy. I attest to the content of the Intraoperative Record and any orders documented therein. Any exceptions are noted below.
[2023-04-14] MEDS: ACETAMINOPHEN 1,000 MG/100 ML VIAL IV SCH (17:51)
[2023-04-14] MEDS: ROSUVASTATIN CALCIUM 20 MG TAB PO SCH (20:33)
[2023-04-15] MEDS: ACETAMINOPHEN 1,000 MG/100 ML VIAL IV SCH ×3 (01:40→17:16)
[2023-04-15] MEDS: LACTATED RINGER'S 1,000 ML IV SCH ×2 (05:29→17:16)
[2023-04-15 06:33] LABS: Basophils # (auto) 0.05 K/uL (0.00-0.20); Eosinophils # (auto) 0.06 K/uL (0.00-0.50); Eosinophils % (auto) 1.2 %; Hematocrit (blood only) 23.6 % (37.0-47.0); Hemoglobin 7.6 g/dl (12.0-16.0); Immature Granulocytes # (auto) 0.01 K/uL (0.01-0.20); Immature Granulocytes % (auto) 0.2 %; Lymphocytes # (auto) 1.14 K/uL (1.20-3.40); Lymphocytes % (auto) 23.4 %; Mean Corpuscular Hgb Conc 32.2 g/dL (32.0-36.0); Mean Corpuscular Volume 87.1 fL (80.0-100.0); Mean Platelet Volume 9.9 fL (9.4-12.4); Monocytes # (auto) 0.37 K/uL (0.11-0.59); Monocytes % (auto) 7.6 %; Neutrophils # (auto) 3.25 K/uL (1.40-6.50); Neutrophils % (auto) 66.6 %; Platelet Count 269 K/uL (130-400); RDW Coefficient of Variation 15.3 % (11.5-14.5); RDW Standard Deviation 48.4 fL (36.4-46.3); Red Blood Count 2.71 M/uL (4.20-5.40); White Blood Count 4.88 K/ul (4.8-10.8)
[2023-04-15 07:12] LABS: RBC Morphology Unremarkable
[2023-04-15 07:14] LABS: Calcium 6.9 mg/dl (8.6-10.3); Est GFR (African American) 114.5 ml/min; Est GFR (Non-African American) 98.8 ml/min; Magnesium 1.6 mg/dl (1.7-2.4); Phosphorus 2.4 mg/dl (2.5-4.9); Potassium 3.7 mmol/L (3.5-5.1)
--- NOTE | 2023-04-15 08:44 | Surgery Progress Note ---
Date of Service April 15, 2023 Assessment & Plan (1) Diverticulitis of large intestine with complication: Plan: POD 1 s/p laparoscopic sigmoidectomy with colostomy formation. Afebrile, with stable VSS Hold Lovenox today. F/U labs in am. May re-start Lovenox if H/H is stable in the am. Continue to measure PATRICIA drain output D/C Echevarria catheter Continue clear liquids for now. Advance diet as tolerated when passing flatus at stoma site. OOB to chair and ambulate with assistance One more dose of Invanz today for 24 perioperative coverage Ostomy nurse eval to be sure proper appliance is ordered for home and is seated properly on the patient. As well as provide patient education. Dispo: D/C home once ostomy starts producing flatus and patient tolerating diet. At that time, may advance diet as tolerated. Needs home stoma nursing arranged for stoma care until patient is comfortable with this. Admission and Anticipated Discharge Date Admission Date: April 06, 2023 Subjective Patient was seen and examined this am. Denies nausea this am. Tolerating clear liquids. No flatus in the ostomy bag this am. Admits to some soreness but no major complaints. Physical Exam Gastrointestinal (Abdomen): Abdomen is soft, non-distended Stoma site intact. Stoma appears healthy. There is some edema present. Stoma remains bright pink. No flatus in the bag. Laparoscopic incisions intact, no evidence for infection. PATRICIA drain in place with serosanguinous drainage. Echevarria catheter in place. Results & Data Vital Signs (Past 12 Hours) Vital Signs Temp Pulse Pulse Pulse Resp BP Pulse Ox 04/15/23 07:57 37.0 C 85 20 120/74 99 04/15/23 07:45 79 04/15/23 04:00 36.9 C 88 18 113/68 97 04/14/23 23:29 36.5 C 91 H 20 105/64 97 04/14/23 21:50 89 O2 Del Method O2 Flow Rate 04/15/23 07:57 Nasal Cannula 2 04/15/23 07:45 04/15/23 04:00 Nasal Cannula 2 04/14/23 23:29 Nasal Cannula 2 04/14/23 21:50 PG Care Time/CCT Total # of Minutes Spent Total Time Spent with Patient: Total time spent is greater than 50% in coordination of care (as documented) at patient's floor/unit and/or counseling patient: Coding Level of Care Code 08885 Post Operative Follow-Up Diagnoses Diverticulitis of large intestine with complication K57.32
[2023-04-15] MEDS: PANTOprazole 40 MG TAB PO SCH ×2 (09:57→20:30)
[2023-04-15] MEDS: MONTELUKAST SODIUM 10 MG TABLET PO SCH ×2 (09:58→19:06)
[2023-04-15] MEDS: ADVANCED PROBIOTIC 1250 MG CAPSULE PO SCH (09:58)
[2023-04-15] MEDS: MULTIVITAMIN TAB PO SCH (09:58)
[2023-04-15] MEDS: GLUCOSAMINE SULFATE 500 MG CAP PO SCH (09:58)
[2023-04-15] MEDS: CHOLECALCIFEROL 1,000 UNITS 25 MCG TAB PO SCH (09:59)
[2023-04-15] MEDS: METOPROLOL SUCC 25MG EXT REL TAB PO SCH ×2 (09:59→19:06)
[2023-04-15] MEDS: ASCORBIC ACID 500 MG TAB PO SCH (10:01)
[2023-04-15] MEDS: UMECLIDINIUM/VILANTEROL 62.5/25MCG 7 PUFFS/INHALER INH SCH (10:03)
[2023-04-15] MEDS: FLUTICASONE FUROATE 200MCG 14 PUFFS/INHALER INH SCH (10:03)
[2023-04-15] MEDS: CASPOFUNGIN 50 MG in SODIUM CHLORIDE 0.9% 250 ML IV SCH (10:18)
[2023-04-15] MEDS: ERTAPENEM SODIUM 1,000 MG in SYRINGE 0 ML IV SCH (10:18)
[2023-04-15] MEDS: ONDANSETRON INJ 2 MG/ML 2 ML VIAL IV PRN (10:45)
--- NOTE | 2023-04-15 11:12 | Infectious Disease Consult ---
Date of Service April 15, 2023 Telehealth Information I performed this visit using a real-time telehealth connection between my location and the patients location ([facility]). After connecting through interactive tele-video, patient was identified by name and date of and/or wristband check.Patient (or authorized healthcare customer service representative teacher) was informed that this was a telemedicine visit and it was being conducted confidentially over secure lines. My office door was closed and no one else was present in the room with me.Patient (or authorized healthcare customer service representative teacher) provided consent to proceed with the visit, expressed an understanding of privacy and security of the telemedicine visit, and gave permission to have a hospital customer service representative teacher in the room in order to assist with the visit and to conduct portions of the visit, as needed. I informed the patient (or authorized healthcare customer service representative teacher) that I reviewed their record and presented the opportunity for them to ask any questions regarding the visit today. The patient agreed to participate. Assessment & Plan (1) Colonic diverticular abscess: Plan: Per my interpretation of the operative report, an abscess cavity was encountered but no gross purulence. Regardless, I would assume that source control has now been achieved. Therefore, I agree with a short course of ABX per the STOP-IT trial. I am not sure what to make of the Yumiko. Was this an episode of vaginitis vs part of the intra-abdominal infection? Regardless, a short course of PO fluconazole should be effective. As long as the QTc permits, I would treat for 3-4 days and assess the response. ID is signing off. Contact us for any new issues. If any workup finalizes after ID signs off, forward the results (this is very important since ID is not automatically notified). History of Present Illness History of Present Illness The patient was admitted for N/V in the setting of a recent episode of complicated diverticulitis with abscess. On 04/14, the patient was taken to the OR for ex-lap and colectomy. I do not see that OR cultures were sent. (However, there is a culture labeled vaginal fluid culture that was collected on 04/12 that is noted to be growing C.albicans/dubliniensis. This appears to be from a colonoscopy that was aborted). The patient reports feeling sore after her surgery. Allergies Allergy/AdvReac Type Severity Reaction Status Date / Time amoxicillin Allergy Severe Itching Unverified 04/05/23 20:34 aspirin Allergy Mild wheeze Verified 04/05/23 20:34 Home Medications Medication Instructions Recorded Confirmed Type multivitamin 1 tab PO DAILY ##0 11/12/10 04/05/23 History omega 4-izu-xtl-fish oil 1,000 mg 1 cap PO DAILY ##0 11/12/10 04/05/23 History (120 mg-180 mg) capsule (Fish Oil) cholecalciferol (vitamin D3) 25 1,000 unit PO DAILY 01/25/19 04/05/23 History mcg (1,000 unit) capsule (Vitamin D3) metoprolol succinate 25 mg 25 mg PO QAM 01/25/19 04/05/23 History tablet,extended release 24 hr ascorbic acid (vitamin C) 250 mg 250 mg PO QAM 06/01/19 04/05/23 History chewable tablet (Vitamin C) fluticasone propionate 50 1 spray intranasal DAILY PRN 06/01/19 04/05/23 History mcg/actuation nasal Allergy Symptoms spray,suspension (Flonase Allergy Relief) glucosamine-chondroitin 250 mg-200 1 tab PO QAM 06/01/19 04/05/23 History mg tablet (Osteo Bi-Flex) denosumab 60 mg/mL subcutaneous 60 mg subcut .[id number] 02/10/23 04/05/23 History syringe (Prolia) fluticasone fur. 200 mcg-umeclid 1 inh inhalation PM 02/10/23 04/05/23 History 62.5 mcg-vilant 25 mcg inhalat.powder (Trelegy Ellipta) rosuvastatin 20 mg tablet 20 mg PO HS 02/10/23 04/05/23 History Lactobacillus acidophilus 1 1,000 mmu cells PO DAILY #7 caps 02/14/23 04/05/23 Rx billion cell capsule cholecalciferol (vitamin D3) 125 5,000 unit PO QAM 30 days #30 tabs 03/29/23 04/05/23 Rx mcg (5,000 unit) tablet pantoprazole 40 mg tablet,delayed 40 mg PO BID 30 days #60 tabs 03/29/23 04/05/23 Rx release amoxicillin 875 mg-potassium 1 tab PO BID 04/06/23 04/06/23 History clavulanate 125 mg tablet ciprofloxacin HCl 500 mg tablet 500 mg PO BID 04/06/23 04/06/23 History montelukast 10 mg tablet 10 mg PO DAILY 04/06/23 04/06/23 History Patient History Medical History (Updated 04/15/23 @ 08:45 by Lili Alegre DO) Osteoporosis COPD (chronic obstructive pulmonary disease) Chronic sinusitis Asthma Diverticulitis Degenerative arthritis of knee, bilateral Trochanteric bursitis, right hip Osteoarthritis GERD (gastroesophageal reflux disease) Hyperlipidemia Hypertension Surgical History (Updated 04/13/23 @ 10:09 by Yolette Jarquin RN) H/O esophagogastroduodenoscopy (03/25/23) Esophagogastroduodenoscopy(Not Applicable) - Lili Alegre DO Hx laparoscopic cholecystectomy (03/08/23) Laparoscopic Cholecystectomy - Lili Alegre DO Hx of colonoscopy (04/12/23) Dr. Alegre incomplete, see report History of open reduction and internal fixation (ORIF) procedure RIGHT HIP Hx of sinus surgery Family History Other Family history non-contributory Social History Smoking Status: Never smoker Tobacco Type: Cigarettes Second Hand Exposure: No; Do You Dip or Chew Tobacco: No; Hx Alcohol Use: No Hx Substance Use: No Preferred Language: American Communication Ability: Effective Pretzel Cooker Required: No Beliefs That Will Affect Care: None Current Living Situation: Spouse Current Living Situation Comment: lives at home w Other Information That Helps Us Care for You: No Feels Safe at Home: Yes Safety Concerns: Feels Safe At This Time Assistive Devices: Cane, Nebulizer and Walker Review of Systems As reviewed in HPI; a complete ROS was otherwise negative Physical Exam Vitals: see EMR Exam limited due to constraints of telemedicine Gen/Constitutional: appears at stated age, NAD, nontoxic, sitting up in bed Head: AT, NC, no supplemental oxygen in place Eyes: pupils equal, sclera anicteric, EOMI, no conjunctival injection ENT: MMM, trachea midline, hearing grossly normal Card: appears to be well-perfused Resp: not tachypneic, nml effort, symmetric chest rise, no accessory muscle use Derm: no visible diaphoresis, no visible rash, no visible jaundice Neuro: AAO, speaking in full sentences, speech intelligible Results & Data Vital Signs (Past 12 Hours) Vital Signs Temp Pulse Pulse Pulse Resp BP Pulse Ox 04/15/23 07:57 37.0 C 85 20 120/74 99 04/15/23 07:45 79 04/15/23 04:00 36.9 C 88 18 113/68 97 04/14/23 23:29 36.5 C 91 H 20 105/64 97 O2 Del Method O2 Flow Rate 04/15/23 07:57 Nasal Cannula 2 04/15/23 07:45 04/15/23 04:00 Nasal Cannula 2 04/14/23 23:29 Nasal Cannula 2 Laboratory Results Reviewed; see EMR Diagnostic Findings Reviewed; see EMR
[2023-04-15] MEDS ORDERED: POTASSIUM PHOS 3 MMOL/1 ML INFUSION IV STA (12:15)
[2023-04-15] MEDS ORDERED: POTASSIUM PHOSPHATE 30 MMOL in SODIUM CHLORIDE 0.9% 500 ML IV ONE (13:00)
--- NOTE | 2023-04-15 14:18 | Hospitalist Progress Note ---
Date of Service April 15, 2023 Assessment & Plan (1) Generalized weakness: Plan: 77-year-old female with past med significant for hyperlipidemia, asthma mild persistent, chronic sinusitis, history of CAD, patent foramen ovale, atrial septal aneurysm, GERD, diverticulitis of sigmoid colon, osteoporosis, aspirin contraindicated, presents with nausea and weakness and not feeling well. Patient had prolonged antibiotic course for diverticular abscess. She was admitted initially on February 10 at [facility] for diverticular abscess treated with Vanco cefepime and metronidazole and she was discharged on cefdinir and metronidazole. She followed with PCP for abdominal pain March 03. CT scan showed diffuse diverticulitis with abscess abscess measuring 3.2 x 2.0 x 3.4 cm. Patient was admitted to [facility]. CT scan also showed some nonspecific GALLBLADDER wall thickening. She had cholecystectomy on 03/08. 03/12/23 had worsening nausea and abdominal pain and repeat his CAT scan showed increasing diverticular abscess to 2.6 x 4.7 cm. General surgery consulted and advised for transfer to [place] for IR drainage. At [place] IR drainage was deemed unsuitable due to its intramural location. ID was consulted. ID recommended IV Invanz. Had PICC line and was discharged. ID recommended Invanz for 21 days. Again she was admitted [facility] on 03/22/23 for weakness and abdominal pain. ID was consulted and Invanz was changed to Cipro and Flagyl due to nausea. As Patient having persistent nausea and poor appetite on March 28 GI was consulted. Repeat CT scan showed increased size of abscess. GI recommended advanced endoscopist for possible drainage. And she was transferred to [place] on March 29. At [place] antibiotics were changed Zosyn after testing for allergy. GI attempted lower endoscopy / endoscopic ultrasound and flexible sigmoidoscopy on 04/01/23 but was not completed due to severe diverticulosis in the sigmoid colon with narrowing of colon and spasm. IR attempted percutaneous drainage but this was aborted as a repeat CT demonstrated no abscess to drain. It was thought that abscess may have self drained after manipulation by GI. Zosyn was switched to p.o. Cipro and Augmentin and was stable to discharge 2022 for total of 9 more days of p.o. antibiotics. Presented to [facility] again with generalized weakness, nausea and poor appetite Repeated diverticular abscess Possible colovaginal abscess Status post exploratory Laparoscopy with colectomy on April 14, 2023 Multiple hospitalizations in the last 2-month due to diverticular abscess as listed above Status post Augmentin and Cipro (Completed on April 11, 2023) Repeat CT abdomen and pelvis done during the hospitalization; wall thickening of sigmoid colon with surrounding inflammation. Multiloculated intramural abscess in sigmoid colon as well. Underwent colonoscopy by surgery on April 12urulent discharge from vagina during colonoscopy manipulation. Suspect potential fistula to the vagina. Culture from the colonoscopy shows Yumiko albicans/dublinensis Started on Caspofungin given the culture from colonoscopy. Infectious disease recommends fluconazole for 3 to 4 days. Patient is already on day 3 of Caspofungin. Obtain EKG for QTc interval. On Invanz postoperatively as per surgery. As per infectious disease, can continue antibiotic for short course(3 to 4 days) as source control has been achieved. Pain control Management of drain as per surgery Ostomy nurse consulted for postop management Repeat PT OT evaluation HYPOKALEMIA, HYPOCALCEMIA, HYPOPHOSPHATEMIA, HYPOMAGNESEMIA Labs reviewed Replacement ordered Nephrology also consulted ABNORMAL EKG Nonspecific ST-T wave changes Denies cardiac symptoms History of CAD On statin, beta-elisabeth GERD Protonix Hyperlipidemia On statin History of asthma Home inhalers On montelukast Right kidney lesion On the CAT scan previous admission Needs follow-up DVT prophylaxis Lovenox Disposition Patient is postop day 1 after colectomy.. Will need close monitoring postoperatively. Repeat PT OT evaluation; may need rehab at discharge. Continuous close monitoring is essential. Time spent evaluating patient, direct bedside care, chart review, placing orders, interpretation of diagnostic studies, discussion with consultants, patient, and family members, as well as other required patient management activities is 50 minutes Please note the above document was generated using voice recognition software. It may contain grammatical, syntax or spelling errors. Any formal questions or concerns about the content, text or information contained within the body of this dictation should be directly addressed to the provider for clarification Admission and Anticipated Discharge Date Admission Date: April 06, 2023 Subjective Patient seen and examined at bedside. She is lying in the bed; not in distress. Denies fever or chills. Review of Systems Review of Systems: All systems reviewed & are unremarkable except as noted in Subjective Physical Exam Physical Exam: General- oriented x 3, not in distress, speaks in sentences with no effort or accessory muscle use Eyes- anicteric Neck- no JVD Lungs- clear breath sounds bilaterally Heart- normal rate, regular rhythm; no murmurs Abdomen-colostomy present, PATRICIA drain in place Extremities- no pretibial edema, no calf tenderness Neuro- alert, oriented x 3; no gross focal neurologic deficits Skin- warm & dry Results & Data Results & Data Vital Signs (Past 12 Hours) Vital Signs Temp Pulse Pulse Pulse Resp BP Pulse Ox 04/15/23 11:33 37.5 C 94 H 20 118/73 94 04/15/23 07:57 37.0 C 85 20 120/74 99 04/15/23 07:45 79 04/15/23 04:00 36.9 C 88 18 113/68 97 O2 Del Method O2 Flow Rate 04/15/23 11:33 Room Air 04/15/23 07:57 Nasal Cannula 2 04/15/23 07:45 04/15/23 04:00 Nasal Cannula 2 Laboratory Results Laboratory Results WBC 4.88 K/ul (4.8-10.8) 04/15/23 05:45 RBC 2.71 M/uL (4.20-5.40) L 04/15/23 05:45 Hgb 7.6 g/dl (12.0-16.0) L 04/15/23 05:45 Hct 23.6 % (37.0-47.0) L 04/15/23 05:45 MCV 87.1 fL (80.0-100.0) 04/15/23 05:45 MCH 28.0 pg (25.0-34.0) 04/15/23 05:45 MCHC 32.2 g/dL (32.0-36.0) 04/15/23 05:45 RDW Std Deviation 48.4 fL (36.4-46.3) H 04/15/23 05:45 RDW Coeff of Edgard 15.3 % (11.5-14.5) H 04/15/23 05:45 Plt Count 269 K/uL (130-400) 04/15/23 05:45 MPV 9.9 fL (9.4-12.4) 04/15/23 05:45 Immature Gran % (Auto) 0.2 % 04/15/23 05:45 Neut % (Auto) 66.6 % 04/15/23 05:45 Lymph % (Auto) 23.4 % 04/15/23 05:45 [place] % (Auto) 7.6 % 04/15/23 05:45 Eos % (Auto) 1.2 % 04/15/23 05:45 Baso % (Auto) 1.0 % 04/15/23 05:45 Neut # (Auto) 3.25 K/uL (1.40-6.50) 04/15/23 05:45 Lymph # (Auto) 1.14 K/uL (1.20-3.40) L 04/15/23 05:45 [place] # (Auto) 0.37 K/uL (0.11-0.59) 04/15/23 05:45 Eos # (Auto) 0.06 K/uL (0.00-0.50) 04/15/23 05:45 Baso # (Auto) 0.05 K/uL (0.00-0.20) 04/15/23 05:45 Immature Gran # (Auto) 0.01 K/uL (0.01-0.20) 04/15/23 05:45 RBC Morphology Unremarkable 04/15/23 05:45 PT 12.3 Seconds (9.0-12.0) H 04/05/23 17:16 INR 1.1 (0.9-1.1) 04/05/23 17:16 Sodium 137 mmol/L (136-145) 04/15/23 05:45 Potassium 3.7 mmol/L (3.5-5.1) 04/15/23 05:45 Chloride 107 mmol/L (98-107) 04/15/23 05:45 Carbon Dioxide 24 mmol/L (21-32) 04/15/23 05:45 Anion Gap 6 (3-11) 04/15/23 05:45 BUN 6 mg/dl (6-23) 04/15/23 05:45 Creatinine 0.43 mg/dl (0.6-1.2) L 04/15/23 05:45 Est Cr Clr Drug Dosing 97.0 ml/min 04/15/23 05:45 Est GFR ( Amer) 114.5 ml/min 04/15/23 05:45 Est GFR (Non-Af Amer) 98.8 ml/min 04/15/23 05:45 BUN/Creatinine Ratio 14.0 (10-20) 04/15/23 05:45 Glucose 84 mg/dl (70-99(Fasting)) 04/15/23 05:45 Calcium 6.9 mg/dl (8.6-10.3) L 04/15/23 05:45 Ionized Calcium 0.94 mmol/L (1.12-1.32) L 04/06/23 09:20 Phosphorus 2.4 mg/dl (2.5-4.9) L D 04/15/23 05:45 Magnesium 1.6 mg/dl (1.7-2.4) L 04/15/23 05:45 Total Bilirubin 0.7 mg/dl (0.2-1.0) 04/10/23 05:12 AST 13 U/L (13-39) 04/10/23 05:12 ALT 5 U/L (7-52) L 04/10/23 05:12 Alkaline Phosphatase 62 U/L (34-104) 04/10/23 05:12 Troponin I High Sens 8.0 pg/ml (0-14) 04/06/23 06:52 Total Protein 5.5 gm/dl (6.0-8.3) L 04/10/23 05:12 Albumin 2.9 gm/dl (3.4-5.0) L 04/10/23 05:12 Globulin 2.6 gm/dl (2.5-4.0) 04/10/23 05:12 Albumin/Globulin Ratio 1.1 (0.9-2) 04/10/23 05:12 25-OH Vitamin D Total 55.7 ng/ml (30-100) 04/07/23 05:31 PTH Intact 259.9 pg/ml (12.0-88.0) H 04/07/23 05:31 Urine Color Yellow 04/06/23 16:05 Urine Appearance Clear (Clear) 04/06/23 16:05 Urine pH 6.5 (4.5-7.5) 04/06/23 16:05 Ur Specific [place] 1.008 (1.000-1.030) 04/06/23 16:05 Urine Protein Negative (Negative) 04/06/23 16:05 Urine Glucose (UA) Negative (Negative) 04/06/23 16:05 Urine Ketones Negative (Negative) 04/06/23 16:05 Urine Blood Negative (Negative) 04/06/23 16:05 Urine Nitrite Negative (Negative) 04/06/23 16:05 Urine Bilirubin Negative (Negative) 04/06/23 16:05 Urine Urobilinogen Negative (Negative) 04/06/23 16:05 Ur Leukocyte Esterase 2+ (Negative) H 04/06/23 16:05 Urine WBC (Auto) >30 /hpf (0-5) H 04/06/23 16:05 Urine RBC (Auto) 0-4 /hpf (0-4) 04/06/23 16:05 U Hyaline Cast (Auto) 1-5 /lpf (0-5) 04/06/23 16:05 U Epithel Cells (Auto) 10-20 /lpf (0-5) H 04/06/23 16:05 Urine Bacteria (Auto) Negative (Negative) 04/06/23 16:05 Urine Yeast Present (None Prsent) A 04/06/23 16:05 Stl C. cayetanensis PCR Not Detected (NotDetected) 04/08/23 04:13 Stool Rotavirus A PCR Not Detected (NotDetected) 04/08/23 04:13 Stl Adenov F 40/41 PCR Not Detected (NotDetected) 04/08/23 04:13 Stool Astrovirus (PCR) Not Detected (NotDetected) 04/08/23 04:13 Stool Campylobacter PCR Not Detected (NotDetected) 04/08/23 04:13 Stl C. diff Tox B Gene Negative Cdiff Gene (Neg) 04/08/23 04:13 Stool Cryptosporidium PCR Not Detected (NotDetected) 04/08/23 04:13 Stl E.coli Shiga Tox PCR Not Detected (NotDetected) 04/08/23 04:13 Stl Enterotoxigenic E PCR Not Detected (NotDetected) 04/08/23 04:13 Stool EPEC (PCR) Not Detected (NotDetected) 04/08/23 04:13 Stool EAEC (PCR) Not Detected (NotDetected) 04/08/23 04:13 Stl E. histolytica PCR Not Detected (NotDetected) 04/08/23 04:13 Stool Giardia Lamblia PCR Not Detected (NotDetected) 04/08/23 04:13 Stool Salmonella PCR Not Detected (NotDetected) 04/08/23 04:13 Stool Sapovirus (PCR) Not Detected (NotDetected) 04/08/23 04:13 Stl P. shigelloides PCR Not Detected (NotDetected) 04/08/23 04:13 Stl Shigella/EIEC PCR Not Detected (NotDetected) 04/08/23 04:13 St Y.enterocolitica PCR Not Detected (NotDetected) 04/08/23 04:13 Stool Vibrio (PCR) Not Detected (NotDetected) 04/08/23 04:13 Stl Vibrio cholerae PCR Not Detected (NotDetected) 04/08/23 04:13 Stl Norovirus GI/GII PCR Not Detected (NotDetected) 04/08/23 04:13 Adenovirus (PCR) Not Detected (NotDetected) 04/05/23 20:33 B. pertussis DNA (PCR) Not Detected (NotDetected) 04/05/23 20:33 B.parapertussis DNA PCR Not Detected (NotDetected) 04/05/23 20:33 C. pneumoniae DNA (PCR) Not Detected (NotDetected) 04/05/23 20:33 Coronavirus OC43 (PCR) Not Detected (NotDetected) 04/05/23 20:33 Coronavirus HKU1 (PCR) Not Detected (NotDetected) 04/05/23 20:33 Coronavirus 229E (PCR) Not Detected (NotDetected) 04/05/23 20:33 SARS-CoV-2 (PCR) Not Detected (NotDetected) 04/05/23 20:33 Coronavirus NL63 (PCR) Not Detected (NotDetected) 04/05/23 20:33 Human Metapneumovir PCR Not Detected (NotDetected) 04/05/23 20:33 Influenza Type A (PCR) Not Detected (NotDetected) 04/05/23 20:33 Influenza Type B (PCR) Not Detected (NotDetected) 04/05/23 20:33 M. pneumoniae (PCR) Not Detected (NotDetected) 04/05/23 20:33 Parainfluenza 1 (PCR) Not Detected (NotDetected) 04/05/23 20:33 Parainfluenza 2 (PCR) Not Detected (NotDetected) 04/05/23 20:33 Parainfluenza 3 (PCR) Not Detected (NotDetected) 04/05/23 20:33 Parainfluenza 4 (PCR) Not Detected (NotDetected) 04/05/23 20:33 RSV (PCR) Not Detected (NotDetected) 04/05/23 20:33 Entero/Rhino (PCR) Not Detected (NotDetected) 04/05/23 20:33 Blood Type O Positive 04/14/23 04:21 Antibody Screen NEGATIVE 04/14/23 04:21 Impressions Chest X-Ray 04/05/23 20:25 XR chest 1V portable CLINICAL HISTORY: picc eval COMPARISON STUDY: Chest radiograph March 11, 2023. FINDINGS: No PICC is identified. There is a possible IV within the right antecubital fossa. No pneumothorax is present. There is a small left pleural effusion. Cardiomegaly is unchanged. No evidence for pulmonary edema. There is no consolidation to suggest pneumonia. IMPRESSION: 1. No PICC identified. Possible IV within the right antecubital fossa. 2. Small left pleural effusion. 3. Cardiomegaly. No radiographic evidence for pulmonary edema. ACT 112: Negative or not required by law. Electronically signed by: Gene Hastings M.D. 04/06/2023 6:42 AM KUB X-Ray 04/06/23 08:00 KUB CLINICAL HISTORY: Nausea. COMPARISON STUDY: CT of the abdomen and pelvis March 28, 2023. FINDINGS: Linear bibasilar densities favor atelectasis or scarring. There are cholecystectomy clips and a right femoral internal fixation. The bowel gas pattern is normal. There is minimal stool. No urinary calculi are identified. IMPRESSION: No evidence for a bowel obstruction. ACT 112: Negative or not required by law. Electronically signed by: Gene Hastings M.D. 04/06/2023 9:42 AM Abdomen/Pelvis CT 04/06/23 11:09 CT SCAN OF THE ABDOMEN AND PELVIS WITHOUT IV CONTRAST CLINICAL HISTORY: Follow-up diverticular abscess. COMPARISON STUDY: Multiple recent prior abdominal CT scans, most recently dated 03/28/2023. TECHNIQUE: Unenhanced CT scan of the abdomen and pelvis is performed from the lung bases to the proximal femora. Images are reviewed in the axial, sagittal, and coronal planes. IV contrast was not administered as per the referring clinic gabriel. Note that the examination was performed in significantly suboptimal fashion without oral and IV contrast. A dose lowering technique was utilized adhering to the principles of ALARA. CT DOSE: 721.51 mGy.cm FINDINGS: Lung bases: The heart is top normal in size and without pericardial effusion. The coronary arteries are denser calcified. There are trace pleural effusions with dependent atelectasis. No airspace consolidation is seen typical for pneumonia. A small hiatal hernia is noted. Liver: The unenhanced liver is normal in size, contour, and attenuation. Fatty infiltration is seen along the falciform ligament. There is no intrahepatic biliary ductal dilatation. Gallbladder: Surgically absent noting clips in the gallbladder fossa. Spleen: Normal in size and attenuation. Pancreas: The unenhanced pancreas is grossly unremarkable. Adrenal glands: Unremarkable. Kidneys: The unenhanced kidneys are normal in size and without hydronephrosis. No renal calculi are identified. Simple and complex bilateral renal cysts measure up to 3.4 cm Abdominal vasculature: The abdominal aorta is normal in course and caliber noting moderate atherosclerotic calcification. Bowel: There is moderate colonic diverticulosis. There is persistent wall thickening of the sigmoid colon with surrounding inflammation at site of previously characterized diverticulitis and abscess. A multiloculated intramural abscess is again suggested involving the rectosigmoid. This is difficult to delineate without IV contrast. The loculation along the left aspect of the sigmoid on image #270 measures at least 2.4 x 2.0 cm, and a loculation along the anterior aspect the rectosigmoid on image #285 measures at least 4.2 x 1.8 cm. These likely communicate. No bowel obstruction is seen. The appendix is well- visualized and normal. Peritoneum: There is no intraperitoneal free air or abdominal ascites. There is a small fat-containing abdominal hernia. Lymphadenopathy: None. Pelvic viscera: The bladder is distended but otherwise normal as imaged. The uterus and adnexa are normal as visualized. Skeletal structures: The skeletal structures are osteopenic. A mild compression deformity of L4 is unchanged. Mild to moderate lumbosacral spondylosis is observed. No lytic or blastic lesions are seen. There is chronic deformity and postsurgical change seen in the right proximal femur. There is also chronic deformity right posterior acetabular roof. IMPRESSION: 1. Significantly suboptimal examination without oral and IV contrast. 2. Wall thickening of the sigmoid colon with surrounding inflammation at the site of previously characterized diverticulitis is similar to the 03/28/2023 examination. 3. A multiloculated intramural abscess is again seen involving the sigmoid colon. This is difficult to characterize/delineate without IV contrast, but appears modestly decreased in size from 03/28/2023. See above. 4. No intraperitoneal free air is seen. 5. Trace pleural effusions. 6. Additional findings as above. ACT 112: Negative or not required by law. Electronically signed by: Juan Miguel Rodriguez M.D. 04/06/2023 2:03 PM
[2023-04-15] MEDS: PROMETHAZINE HCL 6.25 MG in SODIUM CHLORIDE 0.9% 50 ML IV PRN (18:40)
[2023-04-15] MEDS: ROSUVASTATIN CALCIUM 20 MG TAB PO SCH (20:30)
[2023-04-16] MEDS: ACETAMINOPHEN 1,000 MG/100 ML VIAL IV SCH ×3 (03:22→18:32)
--- NOTE | 2023-04-16 07:09 | Electrocardiogram Report ---
Test Reason : Blood Pressure : / mmHG Vent. Rate : 097 BPM Atrial Rate : 097 BPM P-R Int : 120 ms QRS Dur : 086 ms QT Int : 406 ms P-R-T Axes : 062 058 -80 degrees QTc Int : 515 ms Normal sinus rhythm Low voltage QRS Prolonged QT Abnormal ECG Confirmed by Gigi James ([id number]) on 04/16/2023 7:08:42 AM Referred By: Manoj Weber Confirmed By:Jacob James
[2023-04-16 07:20] LABS: Basophils # (auto) 0.02 K/uL (0.00-0.20); Basophils % (auto) 0.4 %; Eosinophils # (auto) 0.17 K/uL (0.00-0.50); Hemoglobin 7.6 g/dl (12.0-16.0); Immature Granulocytes # (auto) 0.02 K/uL (0.01-0.20); Immature Granulocytes % (auto) 0.4 %; Lymphocytes % (auto) 17.9 %; Mean Corpuscular Hemoglobin 27.8 pg (25.0-34.0); Mean Corpuscular Hgb Conc 31.7 g/dL (32.0-36.0); Mean Corpuscular Volume 87.9 fL (80.0-100.0); Mean Platelet Volume 9.8 fL (9.4-12.4); Monocytes # (auto) 0.31 K/uL (0.11-0.59); Monocytes % (auto) 5.5 %; Neutrophils # (auto) 4.07 K/uL (1.40-6.50); Neutrophils % (auto) 72.8 %; Platelet Count 279 K/uL (130-400); RDW Coefficient of Variation 15.2 % (11.5-14.5); RDW Standard Deviation 48.8 fL (36.4-46.3); Red Blood Count 2.73 M/uL (4.20-5.40); White Blood Count 5.59 K/ul (4.8-10.8)
[2023-04-16 07:39] LABS: BUN Creatinine Ratio 9.7 (10-20); Calcium 6.7 mg/dl (8.6-10.3); Creatinine Clr Calc Pharmacy 136.8 ml/min; Est GFR (African American) 127.5 ml/min; Magnesium 1.3 mg/dl (1.7-2.4); Phosphorus 1.6 mg/dl (2.5-4.9)
[2023-04-16] MEDS: LACTATED RINGER'S 1,000 ML IV SCH (07:44)
[2023-04-16] MEDS: ONDANSETRON INJ 2 MG/ML 2 ML VIAL IV PRN (07:44)
[2023-04-16] MEDS ORDERED: POTASSIUM PHOS 3 MMOL/1 ML INFUSION IV STA (07:50)
[2023-04-16] MEDS ORDERED: POTASSIUM PHOSPHATE 30 MMOL in SODIUM CHLORIDE 0.9% 500 ML IV ONE (08:00)
[2023-04-16 08:05] LABS: RBC Morphology Unremarkable
[2023-04-16] MEDS: MAGNESIUM SULFATE / D5W 1 GM/100 ML BAG IV SCH ×3 (08:28→12:34)
[2023-04-16] MEDS: FLUTICASONE PROPIONATE NA SPR 16 GM BTL PRN (08:45)
[2023-04-16] MEDS: UMECLIDINIUM/VILANTEROL 62.5/25MCG 7 PUFFS/INHALER INH SCH (08:45)
[2023-04-16] MEDS: ENOXAPARIN INJ 40 MG/0.4 ML SYR SQ SCH (08:46)
[2023-04-16] MEDS: FLUTICASONE FUROATE 200MCG 14 PUFFS/INHALER INH SCH (08:46)
[2023-04-16] MEDS: PANTOprazole 40 MG TAB PO SCH ×2 (08:52→22:18)
[2023-04-16] MEDS: METOPROLOL SUCC 25MG EXT REL TAB PO SCH (08:52)
[2023-04-16] MEDS: ADVANCED PROBIOTIC 1250 MG CAPSULE PO SCH (08:52)
[2023-04-16] MEDS: ASCORBIC ACID 500 MG TAB PO SCH (08:52)
[2023-04-16] MEDS: CHOLECALCIFEROL 1,000 UNITS 25 MCG TAB PO SCH (08:52)
[2023-04-16] MEDS: GLUCOSAMINE SULFATE 500 MG CAP PO SCH (08:52)
[2023-04-16] MEDS: MULTIVITAMIN TAB PO SCH (08:52)
[2023-04-16] MEDS: MONTELUKAST SODIUM 10 MG TABLET PO SCH (08:52)
[2023-04-16] MEDS: ERTAPENEM SODIUM 1,000 MG in SYRINGE 0 ML IV SCH (10:36)
[2023-04-16] MEDS: CASPOFUNGIN 50 MG in SODIUM CHLORIDE 0.9% 250 ML IV SCH (11:04)
--- NOTE | 2023-04-16 11:51 | Surgery Progress Note ---
Date of Service April 16, 2023 Assessment & Plan (1) Diverticulitis of large intestine with complication: Plan: POD 2 s/p laparoscopic sigmoidectomy with colostomy formation. Afebrile, with stable VSS DVT prophylaxis with SCD boots and Lovenox Continue to measure PATRICIA drain output Will advance diet to full liquids, as she thinks clear liquids are causing more nausea OOB to chair and ambulate with assistance Ostomy nurse eval to be sure proper appliance is ordered for home and is seated properly on the patient. As well as provide patient education. Dispo: D/C home once ostomy starts producing flatus and patient tolerating diet. At that time, may advance diet as tolerated. Needs home stoma nursing arranged for stoma care until patient is comfortable with this. Admission and Anticipated Discharge Date Admission Date: April 06, 2023 Subjective Still complaining of nausea. Minimal pain or tenderness. No fevers or chills. Sitting up in chair. Physical Exam Physical Exam: AFVSS NAD, A&O x 3 Abdomen: Soft, minimal tenderness to palpation Minimal distention Incision clean/dry/intact, vinh in place Results & Data Vital Signs (Past 12 Hours) Vital Signs Temp Pulse Pulse Pulse Resp BP Pulse Ox 04/16/23 11:32 36.9 C 104 H 18 119/68 91 04/16/23 07:38 37.1 C 99 H 18 142/78 H 92 04/16/23 07:14 96 H 04/16/23 03:32 37.2 C 93 H 18 129/69 91 O2 Del Method O2 Flow Rate 04/16/23 11:32 Room Air 04/16/23 07:38 Nasal Cannula 2 04/16/23 07:14 04/16/23 03:32 Nasal Cannula 2 Laboratory Results 04/16/23 Range/Units 06:30 WBC 5.59 (4.8-10.8) K/ul RBC 2.73 L (4.20-5.40) M/uL Hgb 7.6 L (12.0-16.0) g/dl Hct 24.0 L (37.0-47.0) % MCV 87.9 (80.0-100.0) fL MCH 27.8 (25.0-34.0) pg MCHC 31.7 L (32.0-36.0) g/dL RDW Std Deviation 48.8 H (36.4-46.3) fL RDW Coeff of Edgard 15.2 H (11.5-14.5) % Plt Count 279 (130-400) K/uL MPV 9.8 (9.4-12.4) fL Immature Gran % (Auto) 0.4 % Neut % (Auto) 72.8 % Lymph % (Auto) 17.9 % [place] % (Auto) 5.5 % Eos % (Auto) 3.0 % Baso % (Auto) 0.4 % Neut # (Auto) 4.07 (1.40-6.50) K/uL Lymph # (Auto) 1.00 L (1.20-3.40) K/uL [place] # (Auto) 0.31 (0.11-0.59) K/uL Eos # (Auto) 0.17 (0.00-0.50) K/uL Baso # (Auto) 0.02 (0.00-0.20) K/uL Immature Gran # (Auto) 0.02 (0.01-0.20) K/uL RBC Morphology Unremarkable Sodium 138 (136-145) mmol/L Potassium 3.0 L (3.5-5.1) mmol/L Chloride 106 (98-107) mmol/L Carbon Dioxide 24 (21-32) mmol/L Anion Gap 8 (3-11) BUN 3 L (6-23) mg/dl Creatinine 0.31 L (0.6-1.2) mg/dl Est Cr Clr Drug Dosing 136.8 ml/min Est GFR ( Amer) 127.5 ml/min Est GFR (Non-Af Amer) 110.0 ml/min BUN/Creatinine Ratio 9.7 L (10-20) Glucose 70 (70-99(Fasting)) mg/dl Calcium 6.7 L (8.6-10.3) mg/dl Phosphorus 1.6 L (2.5-4.9) mg/dl Magnesium 1.3 L (1.7-2.4) mg/dl
[2023-04-16] MEDS: PROMETHAZINE HCL 6.25 MG in SODIUM CHLORIDE 0.9% 50 ML IV PRN ×2 (11:52→21:54)
[2023-04-16] MEDS: HYDROmorphone INJ 0.5 MG/0.5 ML SYR IV PRN ×2 (12:33→22:24)
--- NOTE | 2023-04-16 13:59 | Hospitalist Progress Note ---
Date of Service April 16, 2023 Assessment & Plan (1) Generalized weakness: Plan: 77-year-old female with past med significant for hyperlipidemia, asthma mild persistent, chronic sinusitis, history of CAD, patent foramen ovale, atrial septal aneurysm, GERD, diverticulitis of sigmoid colon, osteoporosis, aspirin contraindicated, presents with nausea and weakness and not feeling well. Patient had prolonged antibiotic course for diverticular abscess. She was admitted initially on February 10 at [facility] for diverticular abscess treated with Vanco cefepime and metronidazole and she was discharged on cefdinir and metronidazole. She followed with PCP for abdominal pain March 03. CT scan showed diffuse diverticulitis with abscess abscess measuring 3.2 x 2.0 x 3.4 cm. Patient was admitted to [facility]. CT scan also showed some nonspecific GALLBLADDER wall thickening. She had cholecystectomy on 03/08. 03/12/23 had worsening nausea and abdominal pain and repeat his CAT scan showed increasing diverticular abscess to 2.6 x 4.7 cm. General surgery consulted and advised for transfer to [place] for IR drainage. At [place] IR drainage was deemed unsuitable due to its intramural location. ID was consulted. ID recommended IV Invanz. Had PICC line and was discharged. ID recommended Invanz for 21 days. Again she was admitted [facility] on 03/22/23 for weakness and abdominal pain. ID was consulted and Invanz was changed to Cipro and Flagyl due to nausea. As Patient having persistent nausea and poor appetite on March 28 GI was consulted. Repeat CT scan showed increased size of abscess. GI recommended advanced endoscopist for possible drainage. And she was transferred to [place] on March 29. At [place] antibiotics were changed Zosyn after testing for allergy. GI attempted lower endoscopy / endoscopic ultrasound and flexible sigmoidoscopy on 04/01/23 but was not completed due to severe diverticulosis in the sigmoid colon with narrowing of colon and spasm. IR attempted percutaneous drainage but this was aborted as a repeat CT demonstrated no abscess to drain. It was thought that abscess may have self drained after manipulation by GI. Zosyn was switched to p.o. Cipro and Augmentin and was stable to discharge 2022 for total of 9 more days of p.o. antibiotics. Presented to [facility] again with generalized weakness, nausea and poor appetite Repeated diverticular abscess Possible colovaginal abscess Status post exploratory Laparoscopy with laparoscopic Colectomy on April 14, 2023 Multiple hospitalizations in the last 2-month due to diverticular abscess as listed above Status post Augmentin and Cipro (Completed on April 11, 2023) Repeat CT abdomen and pelvis done during the hospitalization; wall thickening of sigmoid colon with surrounding inflammation. Multiloculated intramural abscess in sigmoid colon as well. Underwent colonoscopy by surgery on April 12urulent discharge from vagina during colonoscopy manipulation. Suspect potential fistula to the vagina. Culture from the colonoscopy shows Yumiko albicans/dublinensis Started on Caspofungin given the culture from colonoscopy. Infectious disease recommends fluconazole for 3 to 4 days. Patient is already on day 3 of Caspofungin. EKG shows QT prolongation. Continue antifungal for 1 more day On Invanz postoperatively as per surgery. As per infectious disease, can continue antibiotic for short course(3 to 4 days) as source control has been achieved. Pain control Management of drain as per surgery Ostomy nurse consulted for postop management Repeat PT OT evaluation HYPOKALEMIA, HYPOCALCEMIA, HYPOPHOSPHATEMIA, HYPOMAGNESEMIA Labs reviewed Replacement ordered Nephrology also consulted ABNORMAL EKG Nonspecific ST-T wave changes Denies cardiac symptoms History of CAD On statin, beta-elisabeth GERD Protonix Hyperlipidemia On statin History of asthma Home inhalers On montelukast Right kidney lesion On the CAT scan previous admission Needs follow-up DVT prophylaxis Lovenox Disposition Patient is postop day 2 after colectomy. Will need close monitoring postoperatively. Repeat PT OT evaluation; may need rehab at discharge. Advance diet as tolerated Time spent evaluating patient, direct bedside care, chart review, placing orders, interpretation of diagnostic studies, discussion with consultants, patient, and family members, as well as other required patient management activities is 50 minutes Please note the above document was generated using voice recognition software. It may contain grammatical, syntax or spelling errors. Any formal questions or concerns about the content, text or information contained within the body of this dictation should be directly addressed to the provider for clarification Admission and Anticipated Discharge Date Admission Date: April 06, 2023 Subjective Patient seen and examined at bedside. She reports nausea and occasional vomiting. No abdominal pain. Colostomy with output present Review of Systems Review of Systems: All systems reviewed & are unremarkable except as noted in Subjective Physical Exam Physical Exam: General- oriented x 3, not in distress, speaks in sentences with no effort or accessory muscle use Eyes- anicteric Neck- no JVD Lungs- clear breath sounds bilaterally Heart- normal rate, regular rhythm; no murmurs Abdomen-colostomy present with darkish output, PATRICIA drain in place Extremities- no pretibial edema, no calf tenderness Neuro- alert, oriented x 3; no gross focal neurologic deficits Skin- warm & dry Results & Data Results & Data Vital Signs (Past 12 Hours) Vital Signs Temp Pulse Pulse Pulse Resp BP Pulse Ox 04/16/23 11:32 36.9 C 104 H 18 119/68 91 04/16/23 07:38 37.1 C 99 H 18 142/78 H 92 04/16/23 07:14 96 H 04/16/23 03:32 37.2 C 93 H 18 129/69 91 O2 Del Method O2 Flow Rate 04/16/23 11:32 Room Air 04/16/23 07:38 Nasal Cannula 2 04/16/23 07:14 04/16/23 03:32 Nasal Cannula 2 Laboratory Results Laboratory Results WBC 5.59 K/ul (4.8-10.8) 04/16/23 06:30 RBC 2.73 M/uL (4.20-5.40) L 04/16/23 06:30 Hgb 7.6 g/dl (12.0-16.0) L 04/16/23 06:30 Hct 24.0 % (37.0-47.0) L 04/16/23 06:30 MCV 87.9 fL (80.0-100.0) 04/16/23 06:30 MCH 27.8 pg (25.0-34.0) 04/16/23 06:30 MCHC 31.7 g/dL (32.0-36.0) L 04/16/23 06:30 RDW Std Deviation 48.8 fL (36.4-46.3) H 04/16/23 06:30 RDW Coeff of Edgard 15.2 % (11.5-14.5) H 04/16/23 06:30 Plt Count 279 K/uL (130-400) 04/16/23 06:30 MPV 9.8 fL (9.4-12.4) 04/16/23 06:30 Immature Gran % (Auto) 0.4 % 04/16/23 06:30 Neut % (Auto) 72.8 % 04/16/23 06:30 Lymph % (Auto) 17.9 % 04/16/23 06:30 Bleckley % (Auto) 5.5 % 04/16/23 06:30 Eos % (Auto) 3.0 % 04/16/23 06:30 Baso % (Auto) 0.4 % 04/16/23 06:30 Neut # (Auto) 4.07 K/uL (1.40-6.50) 04/16/23 06:30 Lymph # (Auto) 1.00 K/uL (1.20-3.40) L 04/16/23 06:30 Bleckley # (Auto) 0.31 K/uL (0.11-0.59) 04/16/23 06:30 Eos # (Auto) 0.17 K/uL (0.00-0.50) 04/16/23 06:30 Baso # (Auto) 0.02 K/uL (0.00-0.20) 04/16/23 06:30 Immature Gran # (Auto) 0.02 K/uL (0.01-0.20) 04/16/23 06:30 RBC Morphology Unremarkable 04/16/23 06:30 PT 12.3 Seconds (9.0-12.0) H 04/05/23 17:16 INR 1.1 (0.9-1.1) 04/05/23 17:16 Sodium 138 mmol/L (136-145) 04/16/23 06:30 Potassium 3.0 mmol/L (3.5-5.1) L 04/16/23 06:30 Chloride 106 mmol/L (98-107) 04/16/23 06:30 Carbon Dioxide 24 mmol/L (21-32) 04/16/23 06:30 Anion Gap 8 (3-11) 04/16/23 06:30 BUN 3 mg/dl (6-23) L 04/16/23 06:30 Creatinine 0.31 mg/dl (0.6-1.2) L 04/16/23 06:30 Est Cr Clr Drug Dosing 136.8 ml/min 04/16/23 06:30 Est GFR ( Amer) 127.5 ml/min 04/16/23 06:30 Est GFR (Non-Af Amer) 110.0 ml/min 04/16/23 06:30 BUN/Creatinine Ratio 9.7 (10-20) L 04/16/23 06:30 Glucose 70 mg/dl (70-99(Fasting)) 04/16/23 06:30 Calcium 6.7 mg/dl (8.6-10.3) L 04/16/23 06:30 Ionized Calcium 0.94 mmol/L (1.12-1.32) L 04/06/23 09:20 Phosphorus 1.6 mg/dl (2.5-4.9) L 04/16/23 06:30 Magnesium 1.3 mg/dl (1.7-2.4) L 04/16/23 06:30 Total Bilirubin 0.7 mg/dl (0.2-1.0) 04/10/23 05:12 AST 13 U/L (13-39) 04/10/23 05:12 ALT 5 U/L (7-52) L 04/10/23 05:12 Alkaline Phosphatase 62 U/L (34-104) 04/10/23 05:12 Troponin I High Sens 8.0 pg/ml (0-14) 04/06/23 06:52 Total Protein 5.5 gm/dl (6.0-8.3) L 04/10/23 05:12 Albumin 2.9 gm/dl (3.4-5.0) L 04/10/23 05:12 Globulin 2.6 gm/dl (2.5-4.0) 04/10/23 05:12 Albumin/Globulin Ratio 1.1 (0.9-2) 04/10/23 05:12 25-OH Vitamin D Total 55.7 ng/ml (30-100) 04/07/23 05:31 PTH Intact 259.9 pg/ml (12.0-88.0) H 04/07/23 05:31 Urine Color Yellow 04/06/23 16:05 Urine Appearance Clear (Clear) 04/06/23 16:05 Urine pH 6.5 (4.5-7.5) 04/06/23 16:05 Ur Specific [place] 1.008 (1.000-1.030) 04/06/23 16:05 Urine Protein Negative (Negative) 04/06/23 16:05 Urine Glucose (UA) Negative (Negative) 04/06/23 16:05 Urine Ketones Negative (Negative) 04/06/23 16:05 Urine Blood Negative (Negative) 04/06/23 16:05 Urine Nitrite Negative (Negative) 04/06/23 16:05 Urine Bilirubin Negative (Negative) 04/06/23 16:05 Urine Urobilinogen Negative (Negative) 04/06/23 16:05 Ur Leukocyte Esterase 2+ (Negative) H 04/06/23 16:05 Urine WBC (Auto) >30 /hpf (0-5) H 04/06/23 16:05 Urine RBC (Auto) 0-4 /hpf (0-4) 04/06/23 16:05 U Hyaline Cast (Auto) 1-5 /lpf (0-5) 04/06/23 16:05 U Epithel Cells (Auto) 10-20 /lpf (0-5) H 04/06/23 16:05 Urine Bacteria (Auto) Negative (Negative) 04/06/23 16:05 Urine Yeast Present (None Prsent) A 04/06/23 16:05 Stl C. cayetanensis PCR Not Detected (NotDetected) 04/08/23 04:13 Stool Rotavirus A PCR Not Detected (NotDetected) 04/08/23 04:13 Stl Adenov F 40/41 PCR Not Detected (NotDetected) 04/08/23 04:13 Stool Astrovirus (PCR) Not Detected (NotDetected) 04/08/23 04:13 Stool Campylobacter PCR Not Detected (NotDetected) 04/08/23 04:13 Stl C. diff Tox B Gene Negative Cdiff Gene (Neg) 04/08/23 04:13 Stool Cryptosporidium PCR Not Detected (NotDetected) 04/08/23 04:13 Stl E.coli Shiga Tox PCR Not Detected (NotDetected) 04/08/23 04:13 Stl Enterotoxigenic E PCR Not Detected (NotDetected) 04/08/23 04:13 Stool EPEC (PCR) Not Detected (NotDetected) 04/08/23 04:13 Stool EAEC (PCR) Not Detected (NotDetected) 04/08/23 04:13 Stl E. histolytica PCR Not Detected (NotDetected) 04/08/23 04:13 Stool Giardia Lamblia PCR Not Detected (NotDetected) 04/08/23 04:13 Stool Salmonella PCR Not Detected (NotDetected) 04/08/23 04:13 Stool Sapovirus (PCR) Not Detected (NotDetected) 04/08/23 04:13 Stl P. shigelloides PCR Not Detected (NotDetected) 04/08/23 04:13 Stl Shigella/EIEC PCR Not Detected (NotDetected) 04/08/23 04:13 St Y.enterocolitica PCR Not Detected (NotDetected) 04/08/23 04:13 Stool Vibrio (PCR) Not Detected (NotDetected) 04/08/23 04:13 Stl Vibrio cholerae PCR Not Detected (NotDetected) 04/08/23 04:13 Stl Norovirus GI/GII PCR Not Detected (NotDetected) 04/08/23 04:13 Adenovirus (PCR) Not Detected (NotDetected) 04/05/23 20:33 B. pertussis DNA (PCR) Not Detected (NotDetected) 04/05/23 20:33 B.parapertussis DNA PCR Not Detected (NotDetected) 04/05/23 20:33 C. pneumoniae DNA (PCR) Not Detected (NotDetected) 04/05/23 20:33 Coronavirus OC43 (PCR) Not Detected (NotDetected) 04/05/23 20:33 Coronavirus HKU1 (PCR) Not Detected (NotDetected) 04/05/23 20:33 Coronavirus 229E (PCR) Not Detected (NotDetected) 04/05/23 20:33 SARS-CoV-2 (PCR) Not Detected (NotDetected) 04/05/23 20:33 Coronavirus NL63 (PCR) Not Detected (NotDetected) 04/05/23 20:33 Human Metapneumovir PCR Not Detected (NotDetected) 04/05/23 20:33 Influenza Type A (PCR) Not Detected (NotDetected) 04/05/23 20:33 Influenza Type B (PCR) Not Detected (NotDetected) 04/05/23 20:33 M. pneumoniae (PCR) Not Detected (NotDetected) 04/05/23 20:33 Parainfluenza 1 (PCR) Not Detected (NotDetected) 04/05/23 20:33 Parainfluenza 2 (PCR) Not Detected (NotDetected) 04/05/23 20:33 Parainfluenza 3 (PCR) Not Detected (NotDetected) 04/05/23 20:33 Parainfluenza 4 (PCR) Not Detected (NotDetected) 04/05/23 20:33 RSV (PCR) Not Detected (NotDetected) 04/05/23 20:33 Entero/Rhino (PCR) Not Detected (NotDetected) 04/05/23 20:33 Blood Type O Positive 04/14/23 04:21 Antibody Screen NEGATIVE 04/14/23 04:21 Impressions Chest X-Ray 04/05/23 20:25 XR chest 1V portable CLINICAL HISTORY: picc eval COMPARISON STUDY: Chest radiograph March 11, 2023. FINDINGS: No PICC is identified. There is a possible IV within the right antecubital fossa. No pneumothorax is present. There is a small left pleural effusion. Cardiomegaly is unchanged. No evidence for pulmonary edema. There is no consolidation to suggest pneumonia. IMPRESSION: 1. No PICC identified. Possible IV within the right antecubital fossa. 2. Small left pleural effusion. 3. Cardiomegaly. No radiographic evidence for pulmonary edema. ACT 112: Negative or not required by law. Electronically signed by: Gene Hastings M.D. 04/06/2023 6:42 AM KUB X-Ray 04/06/23 08:00 KUB CLINICAL HISTORY: Nausea. COMPARISON STUDY: CT of the abdomen and pelvis March 28, 2023. FINDINGS: Linear bibasilar densities favor atelectasis or scarring. There are cholecystectomy clips and a right femoral internal fixation. The bowel gas pattern is normal. There is minimal stool. No urinary calculi are identified. IMPRESSION: No evidence for a bowel obstruction. ACT 112: Negative or not required by law. Electronically signed by: Gene Hastings M.D. 04/06/2023 9:42 AM Abdomen/Pelvis CT 04/06/23 11:09 CT SCAN OF THE ABDOMEN AND PELVIS WITHOUT IV CONTRAST CLINICAL HISTORY: Follow-up diverticular abscess. COMPARISON STUDY: Multiple recent prior abdominal CT scans, most recently dated 03/28/2023. TECHNIQUE: Unenhanced CT scan of the abdomen and pelvis is performed from the lung bases to the proximal femora. Images are reviewed in the axial, sagittal, and coronal planes. IV contrast was not administered as per the referring clinician. Note that the examination was performed in significantly suboptimal fashion without oral and IV contrast. A dose lowering technique was utilized adhering to the principles of ALARA. CT DOSE: 721.51 mGy.cm FINDINGS: Lung bases: The heart is top normal in size and without pericardial effusion. The coronary arteries are denser calcified. There are trace pleural effusions with dependent atelectasis. No airspace consolidation is seen typical for pneumonia. A small hiatal hernia is noted. Liver: The unenhanced liver is normal in size, contour, and attenuation. Fatty infiltration is seen along the falciform ligament. There is no intrahepatic biliary ductal dilatation. Gallbladder: Surgically absent noting clips in the gallbladder fossa. Spleen: Normal in size and attenuation. Pancreas: The unenhanced pancreas is grossly unremarkable. Adrenal glands: Unremarkable. Kidneys: The unenhanced kidneys are normal in size and without hydronephrosis. No renal calculi are identified. Simple and complex bilateral renal cysts measure up to 3.4 cm Abdominal vasculature: The abdominal aorta is normal in course and caliber noting moderate atherosclerotic calcification. Bowel: There is moderate colonic diverticulosis. There is persistent wall thickening of the sigmoid colon with surrounding inflammation at site of previously characterized diverticulitis and abscess. A multiloculated intramural abscess is again suggested involving the rectosigmoid. This is difficult to delineate without IV contrast. The loculation along the left aspect of the sigmoid on image #270 measures at least 2.4 x 2.0 cm, and a loculation along the anterior aspect the rectosigmoid on image #285 measures at least 4.2 x 1.8 cm. These likely communicate. No bowel obstruction is seen. The appendix is well- visualized and normal. Peritoneum: There is no intraperitoneal free air or abdominal ascites. There is a small fat-containing abdominal hernia. Lymphadenopathy: None. Pelvic viscera: The bladder is distended but otherwise normal as imaged. The uterus and adnexa are normal as visualized. Skeletal structures: The skeletal structures are osteopenic. A mild compression deformity of L4 is unchanged. Mild to moderate lumbosacral spondylosis is observed. No lytic or blastic lesions are seen. There is chronic deformity and postsurgical change seen in the right proximal femur. There is also chronic deformity right posterior acetabular roof. IMPRESSION: 1. Significantly suboptimal examination without oral and IV contrast. 2. Wall thickening of the sigmoid colon with surrounding inflammation at the site of previously characterized diverticulitis is similar to the 03/28/2023 ex amination. 3. A multiloculated intramural abscess is again seen involving the sigmoid colon. This is difficult to characterize/delineate without IV contrast, but appears modestly decreased in size from 03/28/2023. See above. 4. No intraperitoneal free air is seen. 5. Trace pleural effusions. 6. Additional findings as above. ACT 112: Negative or not required by law. Electronically signed by: Juan Miguel Rodriguez M.D. 04/06/2023 2:03 PM
[2023-04-16] MEDS: POTASSIUM CHLORIDE CRTAB 20 MEQ TABCR PO SCH ×2 (15:21→22:17)
[2023-04-16] MEDS: ALBUT/IPRATROP 3MG/0.5MG NEB 3 ML VIAL NEB PRN (16:19)
[2023-04-16] MEDS: ROSUVASTATIN CALCIUM 20 MG TAB PO SCH (22:17)
[2023-04-17] MEDS: ACETAMINOPHEN 1,000 MG/100 ML VIAL IV SCH ×2 (02:25→08:08)
[2023-04-17] MEDS: HYDROmorphone INJ 0.5 MG/0.5 ML SYR IV PRN (06:25)
[2023-04-17] MEDS: PROMETHAZINE HCL 6.25 MG in SODIUM CHLORIDE 0.9% 50 ML IV PRN ×3 (07:16→20:18)
[2023-04-17 07:19] LABS: Basophils # (auto) 0.02 K/uL (0.00-0.20); Basophils % (auto) 0.4 %; Eosinophils # (auto) 0.22 K/uL (0.00-0.50); Eosinophils % (auto) 4.7 %; Hemoglobin 7.3 g/dl (12.0-16.0); Immature Granulocytes # (auto) 0.02 K/uL (0.01-0.20); Immature Granulocytes % (auto) 0.4 %; Lymphocytes # (auto) 1.09 K/uL (1.20-3.40); Lymphocytes % (auto) 23.1 %; Mean Corpuscular Hemoglobin 28.5 pg (25.0-34.0); Mean Corpuscular Hgb Conc 33.2 g/dL (32.0-36.0); Mean Corpuscular Volume 85.9 fL (80.0-100.0); Mean Platelet Volume 9.7 fL (9.4-12.4); Monocytes # (auto) 0.28 K/uL (0.11-0.59); Monocytes % (auto) 5.9 %; Neutrophils # (auto) 3.08 K/uL (1.40-6.50); Neutrophils % (auto) 65.5 %; Platelet Count 290 K/uL (130-400); RDW Coefficient of Variation 15.3 % (11.5-14.5); RDW Standard Deviation 47.9 fL (36.4-46.3); Red Blood Count 2.56 M/uL (4.20-5.40); White Blood Count 4.71 K/ul (4.8-10.8)
[2023-04-17 07:29] LABS: BUN Creatinine Ratio 6.3 (10-20); Calcium 6.9 mg/dl (8.6-10.3); Creatinine Clr Calc Pharmacy 132.8 ml/min; Est GFR (African American) 126.2 ml/min; Est GFR (Non-African American) 108.9 ml/min; Magnesium 1.8 mg/dl (1.7-2.4); Potassium 3.7 mmol/L (3.5-5.1)
[2023-04-17 08:02] LABS: RBC Morphology Unremarkable
[2023-04-17] MEDS: FLUTICASONE FUROATE 200MCG 14 PUFFS/INHALER INH SCH (08:02)
[2023-04-17] MEDS: UMECLIDINIUM/VILANTEROL 62.5/25MCG 7 PUFFS/INHALER INH SCH (08:02)
[2023-04-17] MEDS: PANTOprazole 40 MG TAB PO SCH (08:03)
[2023-04-17] MEDS: ENOXAPARIN INJ 40 MG/0.4 ML SYR SQ SCH (08:03)
[2023-04-17] MEDS: POTASSIUM CHLORIDE CRTAB 20 MEQ TABCR PO SCH ×2 (08:03→16:06)
[2023-04-17] MEDS: ASCORBIC ACID 500 MG TAB PO SCH (08:04)
[2023-04-17] MEDS: GLUCOSAMINE SULFATE 500 MG CAP PO SCH (08:04)
[2023-04-17] MEDS: MULTIVITAMIN TAB PO SCH (08:04)
[2023-04-17] MEDS: CHOLECALCIFEROL 1,000 UNITS 25 MCG TAB PO SCH (08:04)
[2023-04-17] MEDS: CASPOFUNGIN 50 MG in SODIUM CHLORIDE 0.9% 250 ML IV SCH (08:05)
[2023-04-17] MEDS: ADVANCED PROBIOTIC 1250 MG CAPSULE PO SCH (08:06)
[2023-04-17] MEDS: MONTELUKAST SODIUM 10 MG TABLET PO SCH (08:06)
[2023-04-17] MEDS: METOPROLOL SUCC 25MG EXT REL TAB PO SCH (08:06)
--- NOTE | 2023-04-17 10:32 | Hospitalist Progress Note ---
Date of Service April 17, 2023 Assessment & Plan (1) Generalized weakness: Plan: 77-year-old female with past med significant for hyperlipidemia, asthma mild persistent, chronic sinusitis, history of CAD, patent foramen ovale, atrial septal aneurysm, GERD, diverticulitis of sigmoid colon, osteoporosis, aspirin contraindicated, presents with nausea and weakness and not feeling well. Patient had prolonged antibiotic course for diverticular abscess. She was admitted initially on February 10 at [facility] for diverticular abscess treated with Vanco cefepime and metronidazole and she was discharged on cefdinir and metronidazole. She followed with PCP for abdominal pain March 03. CT scan showed diffuse diverticulitis with abscess abscess measuring 3.2 x 2.0 x 3.4 cm. Patient was admitted to [facility]. CT scan also showed some nonspecific GALLBLADDER wall thickening. She had cholecystectomy on 03/08. 03/12/23 had worsening nausea and abdominal pain and repeat his CAT scan showed increasing diverticular abscess to 2.6 x 4.7 cm. General surgery consulted and advised for transfer to [place] for IR drainage. At [facility] IR drainage was deemed unsuitable due to its intramural location. ID was consulted. ID recommended IV Invanz. Had PICC line and was discharged. ID recommended Invanz for 21 days. Again she was admitted [facility] on 03/22/23 for weakness and abdominal pain. ID was consulted and Invanz was changed to Cipro and Flagyl due to nausea. As Patient having persistent nausea and poor appetite on March 28 GI was consulted. Repeat CT scan showed increased size of abscess. GI recommended advanced endoscopist for possible drainage. And she was transferred to [place] on March 29. At [facility] antibiotics were changed Zosyn after testing for allergy. GI attempted lower endoscopy / endoscopic ultrasound and flexible sigmoidoscopy on 04/01/23 but was not completed due to severe diverticulosis in the sigmoid colon with narrowing of colon and spasm. IR attempted percutaneous drainage but this was aborted as a repeat CT demonstrated no abscess to drain. It was thought that abscess may have self drained after manipulation by GI. Zosyn was switched to p.o. Cipro and Augmentin and was stable to discharge 2022 for total of 9 more days of p.o. antibiotics. Presented to [facility] again with generalized weakness, nausea and poor appetite Repeated diverticular abscess Possible colovaginal abscess Status post exploratory Laparoscopy with laparoscopic Colectomy on April 14, 2023 Multiple hospitalizations in the last 2-month due to diverticular abscess as listed above Status post Augmentin and Cipro (Completed on April 11, 2023) Repeat CT abdomen and pelvis done during the hospitalization; wall thickening of sigmoid colon with surrounding inflammation. Multiloculated intramural abscess in sigmoid colon as well. Underwent colonoscopy by surgery on April 12urulent discharge from vagina during colonoscopy manipulation. Suspect potential fistula to the vagina. Culture from the colonoscopy shows Yumiko albicans/dublinensis Completed 4 days of antifungal given her culture results from colonoscopy. She also finished 4 days of IV antibiotic. Antibiotic discontinued as per recommendation by ID Pain control Management of drain as per surgery Ostomy nurse consulted for postop management Repeat PT OT evaluation pending HYPOKALEMIA, HYPOCALCEMIA, HYPOPHOSPHATEMIA, HYPOMAGNESEMIA Labs reviewed Replacement ordered Nephrology also consulted previously in the hospitalization. ABNORMAL EKG Nonspecific ST-T wave changes Denies cardiac symptoms History of CAD On statin, beta-elisabeth GERD Protonix Hyperlipidemia On statin History of asthma Home inhalers On montelukast Right kidney lesion On the CAT scan previous admission Needs follow-up DVT prophylaxis Lovenox Disposition Patient is postop day 3 after colectomy. Will need close monitoring postoperatively. Repeat PT OT evaluation is pending; patient considering going to rehab prior to going home. Case management on board. Time spent evaluating patient, direct bedside care, chart review, placing orders, interpretation of diagnostic studies, discussion with consultants, patient, and family members, as well as other required patient management activities is 50 minutes Please note the above document was generated using voice recognition software. It may contain grammatical, syntax or spelling errors. Any formal questions or concerns about the content, text or information contained within the body of this dictation should be directly addressed to the provider for clarification Admission and Anticipated Discharge Date Admission Date: April 06, 2023 Subjective Patient is no longer nauseous or vomiting. No complaints of abdominal pain. She is able to tolerate full liquid diet without any issues. Colostomy output noted. Review of Systems Review of Systems: All systems reviewed & are unremarkable except as noted in Subjective Physical Exam Physical Exam: General- oriented x 3, not in distress, speaks in sentences with no effort or accessory muscle use Eyes- anicteric Neck- no JVD Lungs- clear breath sounds bilaterally Heart- normal rate, regular rhythm; no murmurs Abdomen-colostomy present with darkish output, PATRICIA drain in place. Incision clean dry and intact. Extremities- no pretibial edema, no calf tenderness Neuro- alert, oriented x 3; no gross focal neurologic deficits Skin- warm & dry Results & Data Results & Data Vital Signs (Past 12 Hours) Vital Signs Temp Pulse Pulse Pulse Resp BP Pulse Ox 04/17/23 07:47 04/17/23 07:32 36.5 C 79 18 118/71 96 04/17/23 07:11 89 04/17/23 04:21 37.1 C 86 16 129/73 96 04/16/23 23:10 36.7 C 96 H 16 133/71 90 O2 Del Method O2 Flow Rate 04/17/23 07:47 Room Air 04/17/23 07:32 Nasal Cannula 3 04/17/23 07:11 04/17/23 04:21 Room Air 04/16/23 23:10 Nasal Cannula 3 Laboratory Results Laboratory Results WBC 4.71 K/ul (4.8-10.8) L 04/17/23 06:02 RBC 2.56 M/uL (4.20-5.40) L 04/17/23 06:02 Hgb 7.3 g/dl (12.0-16.0) L 04/17/23 06:02 Hct 22.0 % (37.0-47.0) L 04/17/23 06:02 MCV 85.9 fL (80.0-100.0) 04/17/23 06:02 MCH 28.5 pg (25.0-34.0) 04/17/23 06:02 MCHC 33.2 g/dL (32.0-36.0) 04/17/23 06:02 RDW Std Deviation 47.9 fL (36.4-46.3) H 04/17/23 06:02 RDW Coeff of Edgard 15.3 % (11.5-14.5) H 04/17/23 06:02 Plt Count 290 K/uL (130-400) 04/17/23 06:02 MPV 9.7 fL (9.4-12.4) 04/17/23 06:02 Immature Gran % (Auto) 0.4 % 04/17/23 06:02 Neut % (Auto) 65.5 % 04/17/23 06:02 Lymph % (Auto) 23.1 % 04/17/23 06:02 [place] % (Auto) 5.9 % 04/17/23 06:02 Eos % (Auto) 4.7 % 04/17/23 06:02 Baso % (Auto) 0.4 % 04/17/23 06:02 Neut # (Auto) 3.08 K/uL (1.40-6.50) 04/17/23 06:02 Lymph # (Auto) 1.09 K/uL (1.20-3.40) L 04/17/23 06:02 [place] # (Auto) 0.28 K/uL (0.11-0.59) 04/17/23 06:02 Eos # (Auto) 0.22 K/uL (0.00-0.50) 04/17/23 06:02 Baso # (Auto) 0.02 K/uL (0.00-0.20) 04/17/23 06:02 Immature Gran # (Auto) 0.02 K/uL (0.01-0.20) 04/17/23 06:02 RBC Morphology Unremarkable 04/17/23 06:02 PT 12.3 Seconds (9.0-12.0) H 04/05/23 17:16 INR 1.1 (0.9-1.1) 04/05/23 17:16 Sodium 138 mmol/L (136-145) 04/17/23 06:02 Potassium 3.7 mmol/L (3.5-5.1) D 04/17/23 06:02 Chloride 107 mmol/L (98-107) 04/17/23 06:02 Carbon Dioxide 27 mmol/L (21-32) 04/17/23 06:02 Anion Gap 4 (3-11) 04/17/23 06:02 BUN 2 mg/dl (6-23) L 04/17/23 06:02 Creatinine 0.32 mg/dl (0.6-1.2) L 04/17/23 06:02 Est Cr Clr Drug Dosing 132.8 ml/min 04/17/23 06:02 Est GFR ( Amer) 126.2 ml/min 04/17/23 06:02 Est GFR (Non-Af Amer) 108.9 ml/min 04/17/23 06:02 BUN/Creatinine Ratio 6.3 (10-20) L 04/17/23 06:02 Glucose 82 mg/dl (70-99(Fasting)) 04/17/23 06:02 Calcium 6.9 mg/dl (8.6-10.3) L 04/17/23 06:02 Ionized Calcium 0.94 mmol/L (1.12-1.32) L 04/06/23 09:20 Phosphorus 1.6 mg/dl (2.5-4.9) L 04/16/23 06:30 Magnesium 1.8 mg/dl (1.7-2.4) 04/17/23 06:02 Total Bilirubin 0.7 mg/dl (0.2-1.0) 04/10/23 05:12 AST 13 U/L (13-39) 04/10/23 05:12 ALT 5 U/L (7-52) L 04/10/23 05:12 Alkaline Phosphatase 62 U/L (34-104) 04/10/23 05:12 Troponin I High Sens 8.0 pg/ml (0-14) 04/06/23 06:52 Total Protein 5.5 gm/dl (6.0-8.3) L 04/10/23 05:12 Albumin 2.9 gm/dl (3.4-5.0) L 04/10/23 05:12 Globulin 2.6 gm/dl (2.5-4.0) 04/10/23 05:12 Albumin/Globulin Ratio 1.1 (0.9-2) 04/10/23 05:12 25-OH Vitamin D Total 55.7 ng/ml (30-100) 04/07/23 05:31 PTH Intact 259.9 pg/ml (12.0-88.0) H 04/07/23 05:31 Urine Color Yellow 04/06/23 16:05 Urine Appearance Clear (Clear) 04/06/23 16:05 Urine pH 6.5 (4.5-7.5) 04/06/23 16:05 Ur Specific [place] 1.008 (1.000-1.030) 04/06/23 16:05 Urine Protein Negative (Negative) 04/06/23 16:05 Urine Glucose (UA) Negative (Negative) 04/06/23 16:05 Urine Ketones Negative (Negative) 04/06/23 16:05 Urine Blood Negative (Negative) 04/06/23 16:05 Urine Nitrite Negative (Negative) 04/06/23 16:05 Urine Bilirubin Negative (Negative) 04/06/23 16:05 Urine Urobilinogen Negative (Negative) 04/06/23 16:05 Ur Leukocyte Esterase 2+ (Negative) H 04/06/23 16:05 Urine WBC (Auto) >30 /hpf (0-5) H 04/06/23 16:05 Urine RBC (Auto) 0-4 /hpf (0-4) 04/06/23 16:05 U Hyaline Cast (Auto) 1-5 /lpf (0-5) 04/06/23 16:05 U Epithel Cells (Auto) 10-20 /lpf (0-5) H 04/06/23 16:05 Urine Bacteria (Auto) Negative (Negative) 04/06/23 16:05 Urine Yeast Present (None Prsent) A 04/06/23 16:05 Stl C. cayetanensis PCR Not Detected (NotDetected) 04/08/23 04:13 Stool Rotavirus A PCR Not Detected (NotDetected) 04/08/23 04:13 Stl Adenov F 40/41 PCR Not Detected (NotDetected) 04/08/23 04:13 Stool Astrovirus (PCR) Not Detected (NotDetected) 04/08/23 04:13 Stool Campylobacter PCR Not Detected (NotDetected) 04/08/23 04:13 Stl C. diff Tox B Gene Negative Cdiff Gene (Neg) 04/08/23 04:13 Stool Cryptosporidium PCR Not Detected (NotDetected) 04/08/23 04:13 Stl E.coli Shiga Tox PCR Not Detected (NotDetected) 04/08/23 04:13 Stl Enterotoxigenic E PCR Not Detected (NotDetected) 04/08/23 04:13 Stool EPEC (PCR) Not Detected (NotDetected) 04/08/23 04:13 Stool EAEC (PCR) Not Detected (NotDetected) 04/08/23 04:13 Stl E. histolytica PCR Not Detected (NotDetected) 04/08/23 04:13 Stool Giardia Lamblia PCR Not Detected (NotDetected) 04/08/23 04:13 Stool Salmonella PCR Not Detected (NotDetected) 04/08/23 04:13 Stool Sapovirus (PCR) Not Detected (NotDetected) 04/08/23 04:13 Stl P. shigelloides PCR Not Detected (NotDetected) 04/08/23 04:13 Stl Shigella/EIEC PCR Not Detected (NotDetected) 04/08/23 04:13 St Y.enterocolitica PCR Not Detected (NotDetected) 04/08/23 04:13 Stool Vibrio (PCR) Not Detected (NotDetected) 04/08/23 04:13 Stl Vibrio cholerae PCR Not Detected (NotDetected) 04/08/23 04:13 Stl Norovirus GI/GII PCR Not Detected (NotDetected) 04/08/23 04:13 Adenovirus (PCR) Not Detected (NotDetected) 04/05/23 20:33 B. pertussis DNA (PCR) Not Detected (NotDetected) 04/05/23 20:33 B.parapertussis DNA PCR Not Detected (NotDetected) 04/05/23 20:33 C. pneumoniae DNA (PCR) Not Detected (NotDetected) 04/05/23 20:33 Coronavirus OC43 (PCR) Not Detected (NotDetected) 04/05/23 20:33 Coronavirus HKU1 (PCR) Not Detected (NotDetected) 04/05/23 20:33 Coronavirus 229E (PCR) Not Detected (NotDetected) 04/05/23 20:33 SARS-CoV-2 (PCR) Not Detected (NotDetected) 04/05/23 20:33 Coronavirus NL63 (PCR) Not Detected (NotDetected) 04/05/23 20:33 Human Metapneumovir PCR Not Detected (NotDetected) 04/05/23 20:33 Influenza Type A (PCR) Not Detected (NotDetected) 04/05/23 20:33 Influenza Type B (PCR) Not Detected (NotDetected) 04/05/23 20:33 M. pneumoniae (PCR) Not Detected (NotDetected) 04/05/23 20:33 Parainfluenza 1 (PCR) Not Detected (NotDetected) 04/05/23 20:33 Parainfluenza 2 (PCR) Not Detected (NotDetected) 04/05/23 20:33 Parainfluenza 3 (PCR) Not Detected (NotDetected) 04/05/23 20:33 Parainfluenza 4 (PCR) Not Detected (NotDetected) 04/05/23 20:33 RSV (PCR) Not Detected (NotDetected) 04/05/23 20:33 Entero/Rhino (PCR) Not Detected (NotDetected) 04/05/23 20:33 Blood Type O Positive 04/14/23 04:21 Antibody Screen NEGATIVE 04/14/23 04:21 Impressions Chest X-Ray 04/05/23 20:25 XR chest 1V portable CLINICAL HISTORY: picc eval COMPARISON STUDY: Chest radiograph March 11, 2023. FINDINGS: No PICC is identified. There is a possible IV within the right antecubital fossa. No pneumothorax is present. There is a small left pleural effusion. Cardiomegaly is unchanged. No evidence for pulmonary edema. There is no consolidation to suggest pneumonia. IMPRESSION: 1. No PICC identified. Possible IV within the right antecubital fossa. 2. Small left pleural effusion. 3. Cardiomegaly. No radiographic evidence for pulmonary edema. ACT 112: Negative or not required by law. Electronically signed by: Gene Hastings M.D. 04/06/2023 6:42 AM KUB X-Ray 04/06/23 08:00 KUB CLINICAL HISTORY: Nausea. COMPARISON STUDY: CT of the abdomen and pelvis March 28, 2023. FINDINGS: Linear bibasilar densities favor atelectasis or scarring. There are cholecystectomy clips and a right femoral internal fixation. The bowel gas pattern is normal. There is minimal stool. No urinary calculi are identified. IMPRESSION: No evidence for a bowel obstruction. ACT 112: Negative or not required by law. Electronically signed by: Gene Hastings M.D. 04/06/2023 9:42 AM Abdomen/Pelvis CT 04/06/23 11:09 CT SCAN OF THE ABDOMEN AND PELVIS WITHOUT IV CONTRAST CLINICAL HISTORY: Follow-up diverticular abscess. COMPARISON STUDY: Multiple recent prior abdominal CT scans, most recently dated 03/28/2023. TECHNIQUE: Unenhanced CT scan of the abdomen and pelvis is performed from the lung bases to the proximal femora. Images are reviewed in the axial, sagittal, and coronal planes. IV contrast was not administered as per the referring clinician. Note that the examination was performed in significantly suboptimal fashion without oral and IV contrast. A dose lowering technique was utilized adhering to the principles of ALARA. CT DOSE: 721.51 mGy.cm FINDINGS: Lung bases: The heart is top normal in size and without pericardial effusion. The coronary arteries are denser calcified. There are trace pleural effusions with dependent atelectasis. No airspace consolidation is seen typical for pneumonia. A small hiatal hernia is noted. Liver: The unenhanced liver is normal in size, contour, and attenuation. Fatty infiltration is seen along the falciform ligament. There is no intrahepatic biliary ductal dilatation. Gallbladder: Surgically absent noting clips in the gallbladder fossa. Spleen: Normal in size and attenuation. Pancreas: The unenhanced pancreas is grossly unremarkable. Adrenal glands: Unremarkable. Kidneys: The unenhanced kidneys are normal in size and without hydronephrosis. No renal calculi are identified. Simple and complex bilateral renal cysts measure up to 3.4 cm Abdominal vasculature: The abdominal aorta is normal in course and caliber noting moderate atherosclerotic calcification. Bowel: There is moderate colonic diverticulosis. There is persistent wall thickening of the sigmoid colon with surrounding inflammation at site of previously characterized diverticulitis and abscess. A multiloculated intramural abscess is again suggested involving the rectosigmoid. This is difficult to delineate without IV contrast. The loculation along the left aspect of the sigmoid on image #270 measures at least 2.4 x 2.0 cm, and a loculation along the anterior aspect the rectosigmoid on image #285 measures at least 4.2 x 1.8 cm. These likely communicate. No bowel obstruction is seen. The appendix is well- visualized and normal. Peritoneum: There is no intraperitoneal free air or abdominal ascites. There is a small fat-containing abdominal hernia. Lymphadenopathy: None. Pelvic viscera: The bladder is distended but otherwise normal as imaged. The uterus and adnexa are normal as visualized. Skeletal structures: The skeletal structures are osteopenic. A mild compression deformity of L4 is unchanged. Mild to moderate lumbosacral spondylosis is observed. No lytic or blastic lesions are seen. There is chronic deformity and postsurgical change seen in the right proximal femur. There is also chronic deformity right posterior acetabular roof. IMPRESSION: 1. Significantly suboptimal examination without oral and IV contrast. 2. Wall thickening of the sigmoid colon with surrounding inflammation at the site of previously characterized diverticulitis is similar to the 03/28/2023 examination. 3. A multiloculated intramural abscess is again seen involving the sigmoid colon. This is difficult to characterize/delineate without IV contrast, but appears modestly decreased in size from 03/28/2023. See above. 4. No intraperitoneal free air is seen. 5. Trace pleural effusions. 6. Additional findings as above. ACT 112: Negative or not required by law. Electronically signed by: Juan Miguel Rodriguez M.D. 04/06/2023 2:03 PM
[2023-04-17] MEDS: ERTAPENEM SODIUM 1,000 MG in SYRINGE 0 ML IV SCH (12:14)
--- NOTE | 2023-04-17 12:36 | Surgery Progress Note ---
Date of Service April 17, 2023 Assessment & Plan (1) Diverticulitis of large intestine with complication: Plan: POD#4 colectomy with ostomy. doing well. Will advance diet to low fiber. continue to increase activity as tolerated. Admission and Anticipated Discharge Date Admission Date: April 06, 2023 Subjective No abdominal pain. No nausea. Feeling hungry for more solid food. Has gas/ stool in ostomy bag. Physical Exam Constitutional: WD/WN, vitals as above Respiratory: normal respiratory effort, lungs clear to auscultation Gastrointestinal (Abdomen): Inspection/Auscultation: abdomen normal to inspection, normal bowel sounds, + abdominal surgical incision (clean) and + abdominal surgical drain present (40 cc); abdomen not distended Pe rcussion/Palpation: abdomen soft; abdomen nontender ostomy viable with gas and liquid brown stool in bag Neurologic: awake; no focal motor deficits Results & Data Vital Signs (Past 12 Hours) Vital Signs Temp Pulse Pulse Pulse Resp BP Pulse Ox 04/17/23 11:35 36.9 C 75 18 99/63 L 92 04/17/23 07:47 04/17/23 07:32 36.5 C 79 18 118/71 96 04/17/23 07:11 89 04/17/23 04:21 37.1 C 86 16 129/73 96 O2 Del Method O2 Flow Rate 04/17/23 11:35 Room Air 04/17/23 07:47 Room Air 04/17/23 07:32 Nasal Cannula 3 04/17/23 07:11 04/17/23 04:21 Room Air Laboratory Results Abnormal lab results 04/17/23 Range/Units 06:02 WBC 4.71 L (4.8-10.8) K/ul RBC 2.56 L (4.20-5.40) M/uL Hgb 7.3 L (12.0-16.0) g/dl Hct 22.0 L (37.0-47.0) % RDW Std Deviation 47.9 H (36.4-46.3) fL RDW Coeff of Edgard 15.3 H (11.5-14.5) % Lymph # (Auto) 1.09 L (1.20-3.40) K/uL BUN 2 L (6-23) mg/dl Creatinine 0.32 L (0.6-1.2) mg/dl BUN/Creatinine Ratio 6.3 L (10-20) Calcium 6.9 L (8.6-10.3) mg/dl
[2023-04-18] MEDS: PANTOprazole 40 MG TAB PO SCH ×3 (00:31→20:53)
[2023-04-18] MEDS: ROSUVASTATIN CALCIUM 20 MG TAB PO SCH ×2 (00:31→20:53)
[2023-04-18] MEDS: POTASSIUM CHLORIDE CRTAB 20 MEQ TABCR PO SCH ×4 (00:31→20:50)
[2023-04-18 06:44] LABS: Basophils # (auto) 0.04 K/uL (0.00-0.20); Basophils % (auto) 0.7 %; Eosinophils # (auto) 0.18 K/uL (0.00-0.50); Eosinophils % (auto) 3.2 %; Hematocrit (blood only) 23.5 % (37.0-47.0); Hemoglobin 7.6 g/dl (12.0-16.0); Immature Granulocytes # (auto) 0.01 K/uL (0.01-0.20); Immature Granulocytes % (auto) 0.2 %; Lymphocytes # (auto) 1.45 K/uL (1.20-3.40); Lymphocytes % (auto) 26.2 %; Mean Corpuscular Hemoglobin 28.4 pg (25.0-34.0); Mean Corpuscular Hgb Conc 32.3 g/dL (32.0-36.0); Mean Corpuscular Volume 87.7 fL (80.0-100.0); Mean Platelet Volume 9.3 fL (9.4-12.4); Monocytes # (auto) 0.33 K/uL (0.11-0.59); Neutrophils # (auto) 3.53 K/uL (1.40-6.50); Neutrophils % (auto) 63.7 %; Platelet Count 305 K/uL (130-400); RDW Coefficient of Variation 15.6 % (11.5-14.5); RDW Standard Deviation 49.9 fL (36.4-46.3); Red Blood Count 2.68 M/uL (4.20-5.40); White Blood Count 5.54 K/ul (4.8-10.8)
[2023-04-18 06:54] LABS: Calcium 7.2 mg/dl (8.6-10.3); Creatinine Clr Calc Pharmacy 139.7 ml/min; Est GFR (African American) 128.9 ml/min; Est GFR (Non-African American) 111.2 ml/min; Magnesium 1.4 mg/dl (1.7-2.4); Potassium 3.4 mmol/L (3.5-5.1)
[2023-04-18 07:53] LABS: Polychromasia 1+
[2023-04-18] MEDS: MULTIVITAMIN TAB PO SCH (08:21)
[2023-04-18] MEDS: FLUTICASONE FUROATE 200MCG 14 PUFFS/INHALER INH SCH (08:21)
[2023-04-18] MEDS: UMECLIDINIUM/VILANTEROL 62.5/25MCG 7 PUFFS/INHALER INH SCH (08:21)
[2023-04-18] MEDS: ENOXAPARIN INJ 40 MG/0.4 ML SYR SQ SCH (08:21)
[2023-04-18] MEDS: ADVANCED PROBIOTIC 1250 MG CAPSULE PO SCH (08:22)
[2023-04-18] MEDS: ASCORBIC ACID 500 MG TAB PO SCH (08:22)
[2023-04-18] MEDS: GLUCOSAMINE SULFATE 500 MG CAP PO SCH (08:22)
[2023-04-18] MEDS: METOPROLOL SUCC 25MG EXT REL TAB PO SCH (08:22)
[2023-04-18] MEDS: MONTELUKAST SODIUM 10 MG TABLET PO SCH (08:23)
[2023-04-18] MEDS: CHOLECALCIFEROL 1,000 UNITS 25 MCG TAB PO SCH (08:24)
[2023-04-18] MEDS: POTASSIUM CHLORIDE / WTR 10 MEQ/100 ML PLCT IV SCH ×4 (10:55→17:34)
[2023-04-18] MEDS: MAGNESIUM SULFATE / D5W 1 GM/100 ML BAG IV SCH ×2 (10:56→13:01)
--- NOTE | 2023-04-18 15:07 | Hospitalist Progress Note ---
Date of Service April 18, 2023 Assessment & Plan (1) Generalized weakness: Plan: 77-year-old female with past med significant for hyperlipidemia, asthma mild persistent, chronic sinusitis, history of CAD, patent foramen ovale, atrial septal aneurysm, GERD, diverticulitis of sigmoid colon, osteoporosis, aspirin contraindicated, presents with nausea and weakness and not feeling well. Patient had prolonged antibiotic course for diverticular abscess. She was admitted initially on February 10 at [facility] for diverticular abscess treated with Vanco cefepime and metronidazole and she was discharged on cefdinir and metronidazole. She followed with PCP for abdominal pain March 03. CT scan showed diffuse diverticulitis with abscess abscess measuring 3.2 x 2.0 x 3.4 cm. Patient was admitted to [facility]. CT scan also showed some nonspecific GALLBLADDER wall thickening. She had cholecystectomy on 03/08. 03/12/23 had worsening nausea and abdominal pain and repeat his CAT scan showed increasing diverticular abscess to 2.6 x 4.7 cm. General surgery consulted and advised for transfer to [place] for IR drainage. At [place] IR drainage was deemed unsuitable due to its intramural location. ID was consulted. ID recommended IV Invanz. Had PICC line and was discharged. ID recommended Invanz for 21 days. Again she was admitted [facility] on 03/22/23 for weakness and abdominal pain. ID was consulted and Invanz was changed to Cipro and Flagyl due to nausea. As Patient having persistent nausea and poor appetite on March 28 GI was consulted. Repeat CT scan showed increased size of abscess. GI recommended advanced endoscopist for possible drainage. And she was transferred to [place] on March 29. At [place] antibiotics were changed Zosyn after testing for allergy. GI attempted lower endoscopy / endoscopic ultrasound and flexible sigmoidoscopy on 04/01/23 but was not completed due to severe diverticulosis in the sigmoid colon with narrowing of colon and spasm. IR attempted percutaneous drainage but this was aborted as a repeat CT demonstrated no abscess to drain. It was thought that abscess may have self drained after manipulation by GI. Zosyn was switched to p.o. Cipro and Augmentin and was stable to discharge 2022 for total of 9 more days of p.o. antibiotics. Presented to [facility] again with generalized weakness, nausea and poor appetite Repeated diverticular abscess Possible colovaginal abscess Status post exploratory Laparoscopy with laparoscopic Colectomy on April 14, 2023 Multiple hospitalizations in the last 2-month due to diverticular abscess as listed above Status post Augmentin and Cipro (Completed on April 11, 2023) Repeat CT abdomen and pelvis done during the hospitalization; wall thickening of sigmoid colon with surrounding inflammation. Multiloculated intramural abscess in sigmoid colon as well. Underwent colonoscopy by surgery on April 12urulent discharge from vagina during colonoscopy manipulation. Suspect potential fistula to the vagina. Culture from the colonoscopy shows Yumiko albicans/dublinensis Completed 4 days of antifungal given her culture results from colonoscopy. She also finished 4 days of IV antibiotic postoperatively. Antibiotic discontinued as per recommendation by ID Pain control Management of drain as per surgery Ostomy nurse consulted for postop management PT OT recommends home. HYPOKALEMIA, HYPOCALCEMIA, HYPOPHOSPHATEMIA, HYPOMAGNESEMIA Labs reviewed Replacement ordered Nephrology also consulted previously in the hospitalization. ABNORMAL EKG Nonspecific ST-T wave changes Denies cardiac symptoms History of CAD On statin, beta-elisabeth GERD Protonix Hyperlipidemia On statin History of asthma Home inhalers On montelukast Right kidney lesion On the CAT scan previous admission Needs follow-up DVT prophylaxis Lovenox Disposition Patient is postop day 4 after colectomy. Will need close monitoring postoperatively. Patient had 2 episode of vomiting yesterday. Awaiting surgery's clearance for discharge. Case management on board. Time spent evaluating patient, direct bedside care, chart review, placing orders, interpretation of diagnostic studies, discussion with consultants, patient, and family members, as well as other required patient management activities is 50 minutes Please note the above document was generated using voice recognition software. It may contain grammatical, syntax or spelling errors. Any formal questions or concerns about the content, text or information contained within the body of thi s dictation should be directly addressed to the provider for clarification Admission and Anticipated Discharge Date Admission Date: April 06, 2023 Subjective Patient reports 2 episode of vomiting yesterday. No complaints of abdominal pain or discomfort. Review of Systems Review of Systems: All systems reviewed & are unremarkable except as noted in Subjective Physical Exam Physical Exam: General- oriented x 3, not in distress, speaks in sentences with no effort or accessory muscle use Eyes- anicteric Neck- no JVD Lungs- clear breath sounds bilaterally Heart- normal rate, regular rhythm; no murmurs Abdomen-colostomy present with darkish output, PATRICIA drain in place. Incision clean dry and intact. Extremities- no pretibial edema, no calf tenderness Neuro- alert, oriented x 3; no gross focal neurologic deficits Skin- warm & dry Results & Data Results & Data Vital Signs (Past 12 Hours) Vital Signs Temp Pulse Pulse Pulse Resp BP Pulse Ox 04/18/23 11:59 36.7 C 98 H 18 120/68 98 04/18/23 11:57 04/18/23 08:08 121/75 04/18/23 07:56 36.8 C 92 H 19 118/60 89 L 04/18/23 07:15 90 04/18/23 03:37 36.8 C 104 H 16 114/69 94 O2 Del Method O2 Flow Rate 04/18/23 11:59 Nasal Cannula 2.5 04/18/23 11:57 Room Air, Nasal Cannula 04/18/23 08:08 04/18/23 07:56 Nasal Cannula 2.5 04/18/23 07:15 04/18/23 03:37 Room Air Laboratory Results Laboratory Results WBC 5.54 K/ul (4.8-10.8) 04/18/23 06:13 RBC 2.68 M/uL (4.20-5.40) L 04/18/23 06:13 Hgb 7.6 g/dl (12.0-16.0) L 04/18/23 06:13 Hct 23.5 % (37.0-47.0) L 04/18/23 06:13 MCV 87.7 fL (80.0-100.0) 04/18/23 06:13 MCH 28.4 pg (25.0-34.0) 04/18/23 06:13 MCHC 32.3 g/dL (32.0-36.0) 04/18/23 06:13 RDW Std Deviation 49.9 fL (36.4-46.3) H 04/18/23 06:13 RDW Coeff of Edgard 15.6 % (11.5-14.5) H 04/18/23 06:13 Plt Count 305 K/uL (130-400) 04/18/23 06:13 MPV 9.3 fL (9.4-12.4) L 04/18/23 06:13 Immature Gran % (Auto) 0.2 % 04/18/23 06:13 Neut % (Auto) 63.7 % 04/18/23 06:13 Lymph % (Auto) 26.2 % 04/18/23 06:13 [place] % (Auto) 6.0 % 04/18/23 06:13 Eos % (Auto) 3.2 % 04/18/23 06:13 Baso % (Auto) 0.7 % 04/18/23 06:13 Neut # (Auto) 3.53 K/uL (1.40-6.50) 04/18/23 06:13 Lymph # (Auto) 1.45 K/uL (1.20-3.40) 04/18/23 06:13 [place] # (Auto) 0.33 K/uL (0.11-0.59) 04/18/23 06:13 Eos # (Auto) 0.18 K/uL (0.00-0.50) 04/18/23 06:13 Baso # (Auto) 0.04 K/uL (0.00-0.20) 04/18/23 06:13 Immature Gran # (Auto) 0.01 K/uL (0.01-0.20) 04/18/23 06:13 RBC Morphology Unremarkable 04/17/23 06:02 Polychromasia 1+ 04/18/23 06:13 PT 12.3 Seconds (9.0-12.0) H 04/05/23 17:16 INR 1.1 (0.9-1.1) 04/05/23 17:16 Sodium 138 mmol/L (136-145) 04/18/23 06:13 Potassium 3.4 mmol/L (3.5-5.1) L 04/18/23 06:13 Chloride 106 mmol/L (98-107) 04/18/23 06:13 Carbon Dioxide 24 mmol/L (21-32) 04/18/23 06:13 Anion Gap 8 (3-11) 04/18/23 06:13 BUN 3 mg/dl (6-23) L 04/18/23 06:13 Creatinine 0.30 mg/dl (0.6-1.2) L 04/18/23 06:13 Est Cr Clr Drug Dosing 139.7 ml/min 04/18/23 06:13 Est GFR ( Amer) 128.9 ml/min 04/18/23 06:13 Est GFR (Non-Af Amer) 111.2 ml/min 04/18/23 06:13 BUN/Creatinine Ratio 10.0 (10-20) 04/18/23 06:13 Glucose 75 mg/dl (70-99(Fasting)) 04/18/23 06:13 Calcium 7.2 mg/dl (8.6-10.3) L 04/18/23 06:13 Ionized Calcium 0.94 mmol/L (1.12-1.32) L 04/06/23 09:20 Phosphorus 1.6 mg/dl (2.5-4.9) L 04/16/23 06:30 Magnesium 1.4 mg/dl (1.7-2.4) L 04/18/23 06:13 Total Bilirubin 0.7 mg/dl (0.2-1.0) 04/10/23 05:12 AST 13 U/L (13-39) 04/10/23 05:12 ALT 5 U/L (7-52) L 04/10/23 05:12 Alkaline Phosphatase 62 U/L (34-104) 04/10/23 05:12 Troponin I High Sens 8.0 pg/ml (0-14) 04/06/23 06:52 Total Protein 5.5 gm/dl (6.0-8.3) L 04/10/23 05:12 Albumin 2.9 gm/dl (3.4-5.0) L 04/10/23 05:12 Globulin 2.6 gm/dl (2.5-4.0) 04/10/23 05:12 Albumin/Globulin Ratio 1.1 (0.9-2) 04/10/23 05:12 25-OH Vitamin D Total 55.7 ng/ml (30-100) 04/07/23 05:31 PTH Intact 259.9 pg/ml (12.0-88.0) H 04/07/23 05:31 Urine Color Yellow 04/06/23 16:05 Urine Appearance Clear (Clear) 04/06/23 16:05 Urine pH 6.5 (4.5-7.5) 04/06/23 16:05 Ur Specific [place] 1.008 (1.000-1.030) 04/06/23 16:05 Urine Protein Negative (Negative) 04/06/23 16:05 Urine Glucose (UA) Negative (Negative) 04/06/23 16:05 Urine Ketones Negative (Negative) 04/06/23 16:05 Urine Blood Negative (Negative) 04/06/23 16:05 Urine Nitrite Negative (Negative) 04/06/23 16:05 Urine Bilirubin Negative (Negative) 04/06/23 16:05 Urine Urobilinogen Negative (Negative) 04/06/23 16:05 Ur Leukocyte Esterase 2+ (Negative) H 04/06/23 16:05 Urine WBC (Auto) >30 /hpf (0-5) H 04/06/23 16:05 Urine RBC (Auto) 0-4 /hpf (0-4) 04/06/23 16:05 U Hyaline Cast (Auto) 1-5 /lpf (0-5) 04/06/23 16:05 U Epithel Cells (Auto) 10-20 /lpf (0-5) H 04/06/23 16:05 Urine Bacteria (Auto) Negative (Negative) 04/06/23 16:05 Urine Yeast Present (None Prsent) A 04/06/23 16:05 Stl C. cayetanensis PCR Not Detected (NotDetected) 04/08/23 04:13 Stool Rotavirus A PCR Not Detected (NotDetected) 04/08/23 04:13 Stl Adenov F 40/41 PCR Not Detected (NotDetected) 04/08/23 04:13 Stool Astrovirus (PCR) Not Detected (NotDetected) 04/08/23 04:13 Stool Campylobacter PCR Not Detected (NotDetected) 04/08/23 04:13 Stl C. diff Tox B Gene Negative Cdiff Gene (Neg) 04/08/23 04:13 Stool Cryptosporidium PCR Not Detected (NotDetected) 04/08/23 04:13 Stl E.coli Shiga Tox PCR Not Detected (NotDetected) 04/08/23 04:13 Stl Enterotoxigenic E PCR Not Detected (NotDetected) 04/08/23 04:13 Stool EPEC (PCR) Not Detected (NotDetected) 04/08/23 04:13 Stool EAEC (PCR) Not Detected (NotDetected) 04/08/23 04:13 Stl E. histolytica PCR Not Detected (NotDetected) 04/08/23 04:13 Stool Giardia Lamblia PCR Not Detected (NotDetected) 04/08/23 04:13 Stool Salmonella PCR Not Detected (NotDetected) 04/08/23 04:13 Stool Sapovirus (PCR) Not Detected (NotDetected) 04/08/23 04:13 Stl P. shigelloides PCR Not Detected (NotDetected) 04/08/23 04:13 Stl Shigella/EIEC PCR Not Detected (NotDetected) 04/08/23 04:13 St Y.enterocolitica PCR Not Detected (NotDetected) 04/08/23 04:13 Stool Vibrio (PCR) Not Detected (NotDetected) 04/08/23 04:13 Stl Vibrio cholerae PCR Not Detected (NotDetected) 04/08/23 04:13 Stl Norovirus GI/GII PCR Not Detected (NotDetected) 04/08/23 04:13 Adenovirus (PCR) Not Detected (NotDetected) 04/05/23 20:33 B. pertussis DNA (PCR) Not Detected (NotDetected) 04/05/23 20:33 B.parapertussis DNA PCR Not Detected (NotDetected) 04/05/23 20:33 C. pneumoniae DNA (PCR) Not Detected (NotDetected) 04/05/23 20:33 Coronavirus OC43 (PCR) Not Detected (NotDetected) 04/05/23 20:33 Coronavirus HKU1 (PCR) Not Detected (NotDetected) 04/05/23 20:33 Coronavirus 229E (PCR) Not Detected (NotDetected) 04/05/23 20:33 SARS-CoV-2 (PCR) Not Detected (NotDetected) 04/05/23 20:33 Coronavirus NL63 (PCR) Not Detected (NotDetected) 04/05/23 20:33 Human Metapneumovir PCR Not Detected (NotDetected) 04/05/23 20:33 Influenza Type A (PCR) Not Detected (NotDetected) 04/05/23 20:33 Influenza Type B (PCR) Not Detected (NotDetected) 04/05/23 20:33 M. pneumoniae (PCR) Not Detected (NotDetected) 04/05/23 20:33 Parainfluenza 1 (PCR) Not Detected (NotDetected) 04/05/23 20:33 Parainfluenza 2 (PCR) Not Detected (NotDetected) 04/05/23 20:33 Parainfluenza 3 (PCR) Not Detected (NotDetected) 04/05/23 20:33 Parainfluenza 4 (PCR) Not Detected (NotDetected) 04/05/23 20:33 RSV (PCR) Not Detected (NotDetected) 04/05/23 20:33 Entero/Rhino (PCR) Not Detected (NotDetected) 04/05/23 20:33 Blood Type O Positive 04/14/23 04:21 Antibody Screen NEGATIVE 04/14/23 04:21 Impressions Chest X-Ray 04/05/23 20:25 XR chest 1V portable CLINICAL HISTORY: picc eval COMPARISON STUDY: Chest radiograph March 11, 2023. FINDINGS: No PICC is identified. There is a possible IV within the right antecubital fossa. No pneumothorax is present. There is a small left pleural effusion. Cardiomegaly is unchanged. No evidence for pulmonary edema. There is no consolidation to suggest pneumonia. IMPRESSION: 1. No PICC identified. Possible IV within the right antecubital fossa. 2. Small left pleural effusion. 3. Cardiomegaly. No radiographic evidence for pulmonary edema. ACT 112: Negative or not required by law. Electronically signed by: Gene Hastings M.D. 04/06/2023 6:42 AM KUB X-Ray 04/06/23 08:00 KUB CLINICAL HISTORY: Nausea. COMPARISON STUDY: CT of the abdomen and pelvis March 28, 2023. FINDINGS: Linear bibasilar densities favor atelectasis or scarring. There are cholecystectomy clips and a right femoral internal fixation. The bowel gas pattern is normal. There is minimal stool. No urinary calculi are identified. IMPRESSION: No evidence for a bowel obstruction. ACT 112: Negative or not required by law. Electronically signed by: Gene Hastings M.D. 04/06/2023 9:42 AM Abdomen/Pelvis CT 04/06/23 11:09 CT SCAN OF THE ABDOMEN AND PELVIS WITHOUT IV CONTRAST CLINICAL HISTORY: Follow-up diverticular abscess. COMPARISON STUDY: Multiple recent prior abdominal CT scans, most recently dated 03/28/2023. TECHNIQUE: Unenhanced CT scan of the abdomen and pelvis is performed from the lung bases to the proximal femora. Images are reviewed in the axial, sagittal, and coronal planes. IV contrast was not administered as per the referring clinician. Note that the examination was performed in significantly suboptimal fashion without oral and IV contrast. A dose lowering technique was utilized adhering to the principles of ALARA. CT DOSE: 721.51 mGy.cm FINDINGS: Lung bases: The heart is top normal in size and without pericardial effusion. The coronary arteries are denser calcified. There are trace pleural effusions with dependent atelectasis. No airspace consolidation is seen typical for pneumonia. A small hiatal hernia is noted. Liver: The unenhanced liver is normal in size, contour, and attenuation. Fatty infiltration is seen along the falciform ligament. There is no intrahepatic biliary ductal dilatation. Gallbladder: Surgically absent noting clips in the gallbladder fossa. Spleen: Normal in size and attenuation. Pancreas: The unenhanced pancreas is grossly unremarkable. Adrenal glands: Unremarkable. Kidneys: The unenhanced kidneys are normal in size and without hydronephrosis. No renal calculi are identified. Simple and complex bilateral renal cysts measure up to 3.4 cm Abdominal vasculature: The abdominal aorta is normal in course and caliber noting moderate atherosclerotic calcification. Bowel: There is moderate colonic diverticulosis. There is persistent wall thickening of the sigmoid colon with surrounding inflammation at site of previously characterized diverticulitis and abscess. A multiloculated intramural abscess is again suggested involving the rectosigmoid. This is difficult to delineate without IV contrast. The loculation along the left aspect of the sigmoid on image #270 measures at least 2.4 x 2.0 cm, and a loculation along the anterior aspect the rectosigmoid on image #285 measures at least 4.2 x 1.8 cm. These likely communicate. No bowel obstruction is seen. The appendix is well- visualized and normal. Peritoneum: There is no intraperitoneal free air or abdominal ascites. There is a small fat-containing abdominal hernia. Lymphadenopathy: None. Pelvic viscera: The bladder is distended but otherwise normal as imaged. The uterus and adnexa are normal as visualized. Skeletal structures: The skeletal structures are osteopenic. A mild compression deformity of L4 is unchanged. Mild to moderate lumbosacral spondylosis is observed. No lytic or blastic lesions are seen. There is chronic deformity and postsurgical change seen in the right proximal femur. There is also chronic deformity right posterior acetabular roof. IMPRESSION: 1. Significantly suboptimal examination without oral and IV contrast. 2. Wall thickening of the sigmoid colon with surrounding inflammation at the site of previously characterized diverticulitis is similar to the 03/28/2023 examination. 3. A multiloculated intramural abscess is again seen involving the sigmoid colon. This is difficult to characterize/delineate without IV contrast, but appears modestly decreased in size from 03/28/2023. See above. 4. No intraperitoneal free air is seen. 5. Trace pleural effusions. 6. Additional findings as above. ACT 112: Negative or not required by law. Electronically signed by: Juan Miguel Rodriguez M.D. 04/06/2023 2:03 PM
[2023-04-19 06:33] LABS: Basophils # (auto) 0.02 K/uL (0.00-0.20); Basophils % (auto) 0.4 %; Eosinophils # (auto) 0.22 K/uL (0.00-0.50); Eosinophils % (auto) 4.1 %; Hematocrit (blood only) 24.7 % (37.0-47.0); Immature Granulocytes # (auto) 0.02 K/uL (0.01-0.20); Immature Granulocytes % (auto) 0.4 %; Lymphocytes # (auto) 1.42 K/uL (1.20-3.40); Lymphocytes % (auto) 26.5 %; Mean Corpuscular Hemoglobin 28.4 pg (25.0-34.0); Mean Corpuscular Hgb Conc 32.4 g/dL (32.0-36.0); Mean Corpuscular Volume 87.6 fL (80.0-100.0); Mean Platelet Volume 9.3 fL (9.4-12.4); Monocytes # (auto) 0.38 K/uL (0.11-0.59); Monocytes % (auto) 7.1 %; Neutrophils % (auto) 61.5 %; Nucleated RBC # (auto) 0.02 K/uL (0.00-0.12); Nucleated RBC % (auto) 0.4 %; Platelet Count 311 K/uL (130-400); RDW Coefficient of Variation 15.6 % (11.5-14.5); RDW Standard Deviation 49.6 fL (36.4-46.3); Red Blood Count 2.82 M/uL (4.20-5.40); White Blood Count 5.36 K/ul (4.8-10.8)
[2023-04-19 07:12] LABS: BUN Creatinine Ratio 9.1 (10-20); Calcium 7.7 mg/dl (8.6-10.3); Creatinine Clr Calc Pharmacy 126.4 ml/min; Est GFR (African American) 124.9 ml/min; Est GFR (Non-African American) 107.8 ml/min; Potassium 3.6 mmol/L (3.5-5.1)
[2023-04-19] MEDS: ADVANCED PROBIOTIC 1250 MG CAPSULE PO SCH (08:06)
[2023-04-19] MEDS: MULTIVITAMIN TAB PO SCH (08:06)
[2023-04-19] MEDS: METOPROLOL SUCC 25MG EXT REL TAB PO SCH (08:06)
[2023-04-19] MEDS: CHOLECALCIFEROL 1,000 UNITS 25 MCG TAB PO SCH (08:07)
[2023-04-19] MEDS: GLUCOSAMINE SULFATE 500 MG CAP PO SCH (08:07)
[2023-04-19] MEDS: ASCORBIC ACID 500 MG TAB PO SCH (08:07)
[2023-04-19] MEDS: PANTOprazole 40 MG TAB PO SCH ×2 (08:08→20:44)
[2023-04-19] MEDS: MONTELUKAST SODIUM 10 MG TABLET PO SCH (08:08)
[2023-04-19] MEDS: FLUTICASONE FUROATE 200MCG 14 PUFFS/INHALER INH SCH (08:08)
[2023-04-19] MEDS: POTASSIUM CHLORIDE CRTAB 20 MEQ TABCR PO SCH ×3 (08:09→20:43)
[2023-04-19] MEDS: UMECLIDINIUM/VILANTEROL 62.5/25MCG 7 PUFFS/INHALER INH SCH (08:09)
[2023-04-19] MEDS: ENOXAPARIN INJ 40 MG/0.4 ML SYR SQ SCH (08:09)
--- NOTE | 2023-04-19 12:51 | Surgery Progress Note ---
Date of Service April 18, 2023 Assessment & Plan (1) Diverticulitis of large intestine with complication: Plan: POD 5 s/p Vicente's. Still c/o some nausea and vomiting. Patient still on potassium pills. Will follow up with dietary to see if potassium enriched foods can be supplemented. Attempt to wean off K pill supplement. Continue to measure PATRICIA drain output. Admission and Anticipated Discharge Date Admission Date: April 06, 2023 Subjective Patient was still c/o nausea off and on although seemed somewhat improved. A ssociated mostly with pills. Physical Exam Gastrointestinal (Abdomen): stoma healthy with stool and a small amount of flatus in the ostomy bag. Results & Data Vital Signs (Past 12 Hours) Vital Signs Temp Pulse Pulse Resp BP Pulse Ox O2 Del Method 04/19/23 11:35 36.7 C 103 H 17 125/75 92 Room Air 04/19/23 10:16 Room Air 04/19/23 07:36 36.9 C 100 H 16 117/68 90 Room Air 04/19/23 07:12 93 H 04/19/23 03:22 36.8 C 96 H 16 125/72 92 Room Air PG Care Time/CCT Total # of Minutes Spent Total Time Spent with Patient: Total time spent is greater than 50% in coordination of care (as documented) at patient's floor/unit and/or counseling patient: Coding Level of Care Code 29335 Post Operative Follow-Up Diagnoses Diverticulitis of large intestine with complication K57.32
--- NOTE | 2023-04-19 12:53 | Surgery Progress Note ---
Date of Service April 19, 2023 Assessment & Plan (1) Diverticulitis of large intestine with complication: Plan: POD 6 s/p Spaulding's procedure Nausea is now resolved since patient has been off of oral antibiotics and potassium pills. She is now tolerating a low fiber diet. Recommend to continue eating potassium enriched foods that the patient is able to tolerate and coincides with a low fiber diet. She should be on a low fiber diet for 2 more weeks. Eat foods rich in proteins with the expectation that the patient may consider colostomy reversal in the very near future. I am told the patient may be discharged to a rehab in which case she can follow- up with me in the office once she is released from rehab. Otherwise she may see me in the office in 3-4 weeks. PATRICIA drain will be removed tomorrow. Admission and Anticipated Discharge Date Admission Date: April 06, 2023 Subjective Patient seen this a.m. States she has not been nauseous for the past 2 days. She did not get nauseous yesterday after I saw her has not been nauseous at all today. She says she has not been taking potassium pills. She did receive a half a banana today which she consumed. Physical Exam Gastrointestinal (Abdomen): Stoma is viable healthy. Continues to produce liquid stool. Abdomen not distended Laparoscopic incisions healing well PATRICIA drain with small amount of serosanguineous drainage. Tubing was milked today contains serous fluid. Results & Data Vital Signs (Past 12 Hours) Vital Signs Temp Pulse Pulse Resp BP Pulse Ox O2 Del Method 04/19/23 11:35 36.7 C 103 H 17 125/75 92 Room Air 04/19/23 10:16 Room Air 04/19/23 07:36 36.9 C 100 H 16 117/68 90 Room Air 04/19/23 07:12 93 H 04/19/23 03:22 36.8 C 96 H 16 125/72 92 Room Air PG Care Time/CCT Total # of Minutes Spent Total Time Spent with Patient: Total time spent is greater than 50% in coordination of care (as documented) at patient's floor/unit and/or counseling patient: Coding Level of Care Code 68349 Post Operative Follow-Up Diagnoses Diverticulitis of large intestine with complication K57.32
--- NOTE | 2023-04-19 14:09 | Hospitalist Progress Note ---
Date of Service April 19, 2023 Assessment & Plan (1) Generalized weakness: Plan: 77-year-old female with past med significant for hyperlipidemia, asthma mild persistent, chronic sinusitis, history of CAD, patent foramen ovale, atrial septal aneurysm, GERD, diverticulitis of sigmoid colon, osteoporosis, aspirin contraindicated, presents with nausea and weakness and not feeling well. Patient had prolonged antibiotic course for diverticular abscess. She was admitted initially on February 10 at [facility] for diverticular abscess treated with Vanco cefepime and metronidazole and she was discharged on cefdinir and metronidazole. She followed with PCP for abdominal pain March 03. CT scan showed diffuse diverticulitis with abscess abscess measuring 3.2 x 2.0 x 3.4 cm. Patient was admitted to [facility]. CT scan also showed some nonspecific GALLBLADDER wall thickening. She had cholecystectomy on 03/08. 03/12/23 had worsening nausea and abdominal pain and repeat his CAT scan showed increasing diverticular abscess to 2.6 x 4.7 cm. General surgery consulted and advised for transfer to [place] for IR drainage. At [place] IR drainage was deemed unsuitable due to its intramural location. ID was consulted. ID recommended IV Invanz. Had PICC line and was discharged. ID recommended Invanz for 21 days. Again she was admitted [facility] on 03/22/23 for weakness and abdominal pain. ID was consulted and Invanz was changed to Cipro and Flagyl due to nausea. As Patient having persistent nausea and poor appetite on March 28 GI was consulted. Repeat CT scan showed increased size of abscess. GI recommended advanced endoscopist for possible drainage. And she was transferred to [place] on March 29. At [place] antibiotics were changed Zosyn after testing for allergy. GI attempted lower endoscopy / endoscopic ultrasound and flexible sigmoidoscopy on 04/01/23 but was not completed due to severe diverticulosis in the sigmoid colon with narrowing of colon and spasm. IR attempted percutaneous drainage but this was aborted as a repeat CT demonstrated no abscess to drain. It was thought that abscess may have self drained after manipulation by GI. Zosyn was switched to p.o. Cipro and Augmentin and was stable to discharge 2022 for total of 9 more days of p.o. antibiotics. Presented to [facility] again with generalized weakness, nausea and poor appetite Repeated diverticular abscess Possible colovaginal abscess Status post exploratory Laparoscopy with laparoscopic Colectomy on April 14, 2023 Multiple hospitalizations in the last 2-month due to diverticular abscess as listed above Status post Augmentin and Cipro (Completed on April 11, 2023) Repeat CT abdomen and pelvis done during the hospitalization; wall thickening of sigmoid colon with surrounding inflammation. Multiloculated intramural abscess in sigmoid colon as well. Underwent colonoscopy by surgery on April 12urulent discharge from vagina during colonoscopy manipulation. Suspect potential fistula to the vagina. Culture from the colonoscopy shows Yumiko albicans/dublinensis Completed 4 days of antifungal given her culture results from colonoscopy. She also finished 4 days of IV antibiotic postoperatively. Antibiotic discontinued as per recommendation by ID Pain control Management of drain as per surgery. Discussed with surgery today regarding the PATRICIA drain. To be removed tomorrow if output is less than 30 cc. Ostomy nurse consulted for postop management HYPOKALEMIA, HYPOCALCEMIA, HYPOPHOSPHATEMIA, HYPOMAGNESEMIA Labs reviewed Replacement ordered Nephrology also consulted previously in the hospitalization. ABNORMAL EKG Nonspecific ST-T wave changes Denies cardiac symptoms History of CAD On statin, beta-elisabeth GERD Protonix Hyperlipidemia On statin History of asthma Home inhalers On montelukast Right kidney lesion On the CAT scan previous admission Needs follow-up as outpatient DVT prophylaxis Lovenox Disposition; patient recovering well after the surgery. She reports she is much weaker compared to her baseline. Referral placed to SNF. Discharge when placement is available. Please note the above document was generated using voice recognition software. It may contain grammatical, syntax or spelling errors. Any formal questions or concerns about the content, text or information contained within the body of this dictation should be directly addressed to the provider for clarification Admission and Anticipated Discharge Date Admission Date: April 06, 2023 Subjective Patient seen and examined at bedside. She reports that she is no longer nauseous. No episode of vomiting yesterday. Review of Systems Review of Systems: All systems reviewed & are unremarkable except as noted in Subjective Physical Exam Physical Exam: General- oriented x 3, not in distress, speaks in sentences with no effort or accessory muscle use Eyes- anicteric Neck- no JVD Lungs- clear breath sounds bilaterally Heart- normal rate, regular rhythm; no murmurs Abdomen-colostomy present with darkish output, PATRICIA drain in place. Incision clean dry and intact. Extremities- no pretibial edema, no calf tenderness Neuro- alert, oriented x 3; no gross focal neurologic deficits Skin- warm & dry Results & Data Results & Data Vital Signs (Past 12 Hours) Vital Signs Temp Pulse Pulse Resp BP Pulse Ox O2 Del Method 04/19/23 11:35 36.7 C 103 H 17 125/75 92 Room Air 04/19/23 10:16 Room Air 04/19/23 07:36 36.9 C 100 H 16 117/68 90 Room Air 04/19/23 07:12 93 H 04/19/23 03:22 36.8 C 96 H 16 125/72 92 Room Air Laboratory Results Laboratory Results WBC 5.36 K/ul (4.8-10.8) 04/19/23 06:07 RBC 2.82 M/uL (4.20-5.40) L 04/19/23 06:07 Hgb 8.0 g/dl (12.0-16.0) L 04/19/23 06:07 Hct 24.7 % (37.0-47.0) L 04/19/23 06:07 MCV 87.6 fL (80.0-100.0) 04/19/23 06:07 MCH 28.4 pg (25.0-34.0) 04/19/23 06:07 MCHC 32.4 g/dL (32.0-36.0) 04/19/23 06:07 RDW Std Deviation 49.6 fL (36.4-46.3) H 04/19/23 06:07 RDW Coeff of Edgard 15.6 % (11.5-14.5) H 04/19/23 06:07 Plt Count 311 K/uL (130-400) 04/19/23 06:07 MPV 9.3 fL (9.4-12.4) L 04/19/23 06:07 Immature Gran % (Auto) 0.4 % 04/19/23 06:07 Neut % (Auto) 61.5 % 04/19/23 06:07 Lymph % (Auto) 26.5 % 04/19/23 06:07 Travis % (Auto) 7.1 % 04/19/23 06:07 Eos % (Auto) 4.1 % 04/19/23 06:07 Baso % (Auto) 0.4 % 04/19/23 06:07 Neut # (Auto) 3.30 K/uL (1.40-6.50) 04/19/23 06:07 Lymph # (Auto) 1.42 K/uL (1.20-3.40) 04/19/23 06:07 Travis # (Auto) 0.38 K/uL (0.11-0.59) 04/19/23 06:07 Eos # (Auto) 0.22 K/uL (0.00-0.50) 04/19/23 06:07 Baso # (Auto) 0.02 K/uL (0.00-0.20) 04/19/23 06:07 Immature Gran # (Auto) 0.02 K/uL (0.01-0.20) 04/19/23 06:07 Absolute Nucleated RBC 0.02 K/uL (0.00-0.12) 04/19/23 06:07 Nucleated RBC % (auto) 0.4 % 04/19/23 06:07 RBC Morphology Unremarkable 04/17/23 06:02 Polychromasia 1+ 04/18/23 06:13 PT 12.3 Seconds (9.0-12.0) H 04/05/23 17:16 INR 1.1 (0.9-1.1) 04/05/23 17:16 Sodium 139 mmol/L (136-145) 04/19/23 06:07 Potassium 3.6 mmol/L (3.5-5.1) 04/19/23 06:07 Chloride 106 mmol/L (98-107) 04/19/23 06:07 Carbon Dioxide 27 mmol/L (21-32) 04/19/23 06:07 Anion Gap 6 (3-11) 04/19/23 06:07 BUN 3 mg/dl (6-23) L 04/19/23 06:07 Creatinine 0.33 mg/dl (0.6-1.2) L 04/19/23 06:07 Est Cr Clr Drug Dosing 126.4 ml/min 04/19/23 06:07 Est GFR ( Amer) 124.9 ml/min 04/19/23 06:07 Est GFR (Non-Af Amer) 107.8 ml/min 04/19/23 06:07 BUN/Creatinine Ratio 9.1 (10-20) L 04/19/23 06:07 Glucose 91 mg/dl (70-99(Fasting)) 04/19/23 06:07 Calcium 7.7 mg/dl (8.6-10.3) L 04/19/23 06:07 Ionized Calcium 0.94 mmol/L (1.12-1.32) L 04/06/23 09:20 Phosphorus 1.6 mg/dl (2.5-4.9) L 04/16/23 06:30 Magnesium 1.4 mg/dl (1.7-2.4) L 04/18/23 06:13 Total Bilirubin 0.7 mg/dl (0.2-1.0) 04/10/23 05:12 AST 13 U/L (13-39) 04/10/23 05:12 ALT 5 U/L (7-52) L 04/10/23 05:12 Alkaline Phosphatase 62 U/L (34-104) 04/10/23 05:12 Troponin I High Sens 8.0 pg/ml (0-14) 04/06/23 06:52 Total Protein 5.5 gm/dl (6.0-8.3) L 04/10/23 05:12 Albumin 2.9 gm/dl (3.4-5.0) L 04/10/23 05:12 Globulin 2.6 gm/dl (2.5-4.0) 04/10/23 05:12 Albumin/Globulin Ratio 1.1 (0.9-2) 04/10/23 05:12 25-OH Vitamin D Total 55.7 ng/ml (30-100) 04/07/23 05:31 PTH Intact 259.9 pg/ml (12.0-88.0) H 04/07/23 05:31 Urine Color Yellow 04/06/23 16:05 Urine Appearance Clear (Clear) 04/06/23 16:05 Urine pH 6.5 (4.5-7.5) 04/06/23 16:05 Ur Specific [place] 1.008 (1.000-1.030) 04/06/23 16:05 Urine Protein Negative (Negative) 04/06/23 16:05 Urine Glucose (UA) Negative (Negative) 04/06/23 16:05 Urine Ketones Negative (Negative) 04/06/23 16:05 Urine Blood Negative (Negative) 04/06/23 16:05 Urine Nitrite Negative (Negative) 04/06/23 16:05 Urine Bilirubin Negative (Negative) 04/06/23 16:05 Urine Urobilinogen Negative (Negative) 04/06/23 16:05 Ur Leukocyte Esterase 2+ (Negative) H 04/06/23 16:05 Urine WBC (Auto) >30 /hpf (0-5) H 04/06/23 16:05 Urine RBC (Auto) 0-4 /hpf (0-4) 04/06/23 16:05 U Hyaline Cast (Auto) 1-5 /lpf (0-5) 04/06/23 16:05 U Epithel Cells (Auto) 10-20 /lpf (0-5) H 04/06/23 16:05 Urine Bacteria (Auto) Negative (Negative) 04/06/23 16:05 Urine Yeast Present (None Prsent) A 04/06/23 16:05 Stl C. cayetanensis PCR Not Detected (NotDetected) 04/08/23 04:13 Stool Rotavirus A PCR Not Detected (NotDetected) 04/08/23 04:13 Stl Adenov F 40/41 PCR Not Detected (NotDetected) 04/08/23 04:13 Stool Astrovirus (PCR) Not Detected (NotDetected) 04/08/23 04:13 Stool Campylobacter PCR Not Detected (NotDetected) 04/08/23 04:13 Stl C. diff Tox B Gene Negative Cdiff Gene (Neg) 04/08/23 04:13 Stool Cryptosporidium PCR Not Detected (NotDetected) 04/08/23 04:13 Stl E.coli Shiga Tox PCR Not Detected (NotDetected) 04/08/23 04:13 Stl Enterotoxigenic E PCR Not Detected (NotDetected) 04/08/23 04:13 Stool EPEC (PCR) Not Detected (NotDetected) 04/08/23 04:13 Stool EAEC (PCR) Not Detected (NotDetected) 04/08/23 04:13 Stl E. histolytica PCR Not Detected (NotDetected) 04/08/23 04:13 Stool Giardia Lamblia PCR Not Detected (NotDetected) 04/08/23 04:13 Stool Salmonella PCR Not Detected (NotDetected) 04/08/23 04:13 Stool Sapovirus (PCR) Not Detected (NotDetected) 04/08/23 04:13 Stl P. shigelloides PCR Not Detected (NotDetected) 04/08/23 04:13 Stl Shigella/EIEC PCR Not Detected (NotDetected) 04/08/23 04:13 St Y.enterocolitica PCR Not Detected (NotDetected) 04/08/23 04:13 Stool Vibrio (PCR) Not Detected (NotDetected) 04/08/23 04:13 Stl Vibrio cholerae PCR Not Detected (NotDetected) 04/08/23 04:13 Stl Norovirus GI/GII PCR Not Detected (NotDetected) 04/08/23 04:13 Adenovirus (PCR) Not Detected (NotDetected) 04/05/23 20:33 B. pertussis DNA (PCR) Not Detected (NotDetected) 04/05/23 20:33 B.parapertussis DNA PCR Not Detected (NotDetected) 04/05/23 20:33 C. pneumoniae DNA (PCR) Not Detected (NotDetected) 04/05/23 20:33 Coronavirus OC43 (PCR) Not Detected (NotDetected) 04/05/23 20:33 Coronavirus HKU1 (PCR) Not Detected (NotDetected) 04/05/23 20:33 Coronavirus 229E (PCR) Not Detected (NotDetected) 04/05/23 20:33 SARS-CoV-2 (PCR) Not Detected (NotDetected) 04/05/23 20:33 Coronavirus NL63 (PCR) Not Detected (NotDetected) 04/05/23 20:33 Human Metapneumovir PCR Not Detected (NotDetected) 04/05/23 20:33 Influenza Type A (PCR) Not Detected (NotDetected) 04/05/23 20:33 Influenza Type B (PCR) Not Detected (NotDetected) 04/05/23 20:33 M. pneumoniae (PCR) Not Detected (NotDetected) 04/05/23 20:33 Parainfluenza 1 (PCR) Not Detected (NotDetected) 04/05/23 20:33 Parainfluenza 2 (PCR) Not Detected (NotDetected) 04/05/23 20:33 Parainfluenza 3 (PCR) Not Detected (NotDetected) 04/05/23 20:33 Parainfluenza 4 (PCR) Not Detected (NotDetected) 04/05/23 20:33 RSV (PCR) Not Detected (NotDetected) 04/05/23 20:33 Entero/Rhino (PCR) Not Detected (NotDetected) 04/05/23 20:33 Blood Type O Positive 04/14/23 04:21 Antibody Screen NEGATIVE 04/14/23 04:21 Impressions Chest X-Ray 04/05/23 20:25 XR chest 1V portable CLINICAL HISTORY: picc eval COMPARISON STUDY: Chest radiograph March 11, 2023. FINDINGS: No PICC is identified. There is a possible IV within the right antecubital fossa. No pneumothorax is present. There is a small left pleural effusion. Cardiomegaly is unchanged. No evidence for pulmonary edema. There is no consolidation to suggest pneumonia. IMPRESSION: 1. No PICC identified. Possible IV within the right antecubital fossa. 2. Small left pleural effusion. 3. Cardiomegaly. No radiographic evidence for pulmonary edema. ACT 112: Negative or not required by law. Electronically signed by: Gene Hastings M.D. 04/06/2023 6:42 AM KUB X-Ray 04/06/23 08:00 KUB CLINICAL HISTORY: Nausea. COMPARISON STUDY: CT of the abdomen and pelvis March 28, 2023. FINDINGS: Linear bibasilar densities favor atelectasis or scarring. There are cholecystectomy clips and a right femoral internal fixation. The bowel gas pattern is normal. There is minimal stool. No urinary calculi are identified. IMPRESSION: No evidence for a bowel obstruction. ACT 112: Negative or not required by law. Electronically signed by: Gene Hastings M.D. 04/06/2023 9:42 AM Abdomen/Pelvis CT 04/06/23 11:09 CT SCAN OF THE ABDOMEN AND PELVIS WITHOUT IV CONTRAST CLINICAL HISTORY: Follow-up diverticular abscess. COMPARISON STUDY: Multiple recent prior abdominal CT scans, most recently dated 03/28/2023. TECHNIQUE: Unenhanced CT scan of the abdomen and pelvis is performed from the lung bases to the proximal femora. Images are reviewed in the axial, sagittal, and coronal planes. IV contrast was not administered as per the referring clinician. Note that the examination was performed in significantly suboptimal fashion without oral and IV contrast. A dose lowering technique was utilized adhering to the principles of ALARA. CT DOSE: 721.51 mGy.cm FINDINGS: Lung bases: The heart is top normal in size and without pericardial effusion. The coronary arteries are denser calcified. There are trace pleural effusions with dependent atelectasis. No airspace consolidation is seen typical for pneumonia. A small hiatal hernia is noted. Liver: The unenhanced liver is normal in size, contour, and attenuation. Fatty infiltration is seen along the falciform ligament. There is no intrahepatic biliary ductal dilatation. Gallbladder: Surgically absent noting clips in the gallbladder fossa. Spleen: Normal in size and attenuation. Pancreas: The unenhanced pancreas is grossly unremarkable. Adrenal glands: Unremarkable. Kidneys: The unenhanced kidneys are normal in size and without hydronephrosis. No renal calculi are identified. Simple and complex bilateral renal cysts measure up to 3.4 cm Abdominal vasculature: The abdominal aorta is normal in course and caliber noting moderate atherosclerotic calcification. Bowel: There is moderate colonic diverticulosis. There is persistent wall thickening of the sigmoid colon with surrounding inflammation at site of previously characterized diverticulitis and abscess. A multiloculated intramural abscess is again suggested involving the rectosigmoid. This is difficult to delineate without IV contrast. The loculation along the left aspect of the sigmoid on image #270 measures at least 2.4 x 2.0 cm, and a loculation along the anterior aspect the rectosigmoid on image #285 measures at least 4.2 x 1.8 cm. These likely communicate. No bowel obstruction is seen. The appendix is well- visualized and normal. Peritoneum: There is no intraperitoneal free air or abdominal ascites. There is a small fat-containing abdominal hernia. Lymphadenopathy: None. Pelvic viscera: The bladder is distended but otherwise normal as imaged. The uterus and adnexa are normal as visualized. Skeletal structures: The skeletal structures are osteopenic. A mild compression deformity of L4 is unchanged. Mild to moderate lumbosacral spondylosis is observed. No lytic or blastic lesions are seen. There is chronic deformity and postsurgical change seen in the right proximal femur. There is also chronic deformity right posterior acetabular roof. IMPRESSION: 1. Significantly suboptimal examination without oral and IV contrast. 2. Wall thickening of the sigmoid colon with surrounding inflammation at the site of previously characterized diverticulitis is similar to the 03/28/2023 examination. 3. A multiloculated intramural abscess is again seen involving the sigmoid colon. This is difficult to characterize/delineate without IV contrast, but appears modestly decreased in size from 03/28/2023. See above. 4. No intraperitoneal free air is seen. 5. Trace pleural effusions. 6. Additional findings as above. ACT 112: Negative or not required by law. Electronically signed by: Juan Miguel Rodriguez M.D. 04/06/2023 2:03 PM
[2023-04-19] MEDS: ROSUVASTATIN CALCIUM 20 MG TAB PO SCH (20:44)
[2023-04-20 05:58] LABS: Basophils # (auto) 0.02 K/uL (0.00-0.20); Basophils % (auto) 0.4 %; Eosinophils # (auto) 0.15 K/uL (0.00-0.50); Eosinophils % (auto) 2.6 %; Hematocrit (blood only) 22.6 % (37.0-47.0); Hemoglobin 7.4 g/dl (12.0-16.0); Immature Granulocytes # (auto) 0.02 K/uL (0.01-0.20); Immature Granulocytes % (auto) 0.4 %; Lymphocytes # (auto) 1.61 K/uL (1.20-3.40); Lymphocytes % (auto) 28.4 %; Mean Corpuscular Hgb Conc 32.7 g/dL (32.0-36.0); Mean Corpuscular Volume 85.6 fL (80.0-100.0); Mean Platelet Volume 9.6 fL (9.4-12.4); Monocytes # (auto) 0.37 K/uL (0.11-0.59); Monocytes % (auto) 6.5 %; Neutrophils % (auto) 61.7 %; Platelet Count 318 K/uL (130-400); RDW Coefficient of Variation 15.9 % (11.5-14.5); RDW Standard Deviation 48.5 fL (36.4-46.3); Red Blood Count 2.64 M/uL (4.20-5.40); White Blood Count 5.67 K/ul (4.8-10.8)
[2023-04-20 06:14] LABS: BUN Creatinine Ratio 13.2 (10-20); Calcium 7.6 mg/dl (8.6-10.3); Creatinine Clr Calc Pharmacy 109.7 ml/min; Est GFR (African American) 119.3 ml/min; Est GFR (Non-African American) 102.9 ml/min; Potassium 3.1 mmol/L (3.5-5.1)
[2023-04-20 06:28] LABS: Polychromasia 1+
--- NOTE | 2023-04-20 06:48 | Surgery Progress Note ---
Date of Service April 20, 2023 Assessment & Plan (1) Diverticulitis of large intestine with complication: Plan: POD 7 s/p Spaulding's procedure Nausea continues to be resolved since patient has been off of oral antibiotics and potassium pills. She continues to tolerate a low fiber diet. Recommend to continue eating potassium enriched foods that the patient is able to tolerate and coincides with a low fiber diet. She should be on a low fiber diet for 2 more weeks. Eat foods rich in proteins with the expectation that the patient may consider colostomy reversal in the very near future. I am told the patient may be discharged to a rehab in the upcoming days in which case she can follow-up with me in the office once she is released from rehab. Otherwise she may see me in the office in 3-4 weeks. PATRICIA drain will be removed tomorrow. Admission and Anticipated Discharge Date Admission Date: April 06, 2023 Subjective Patient seen this a.m. She is without complaints. Physical Exam Gastrointestinal (Abdomen): Abdomen is benign Stoma appears healthy, laparoscopic incisions healing well PATRICIA drain was removed. The insertion site was covered with dry gauze. Results & Data Vital Signs (Past 12 Hours) Vital Signs Temp Pulse Pulse Resp BP Pulse Ox O2 Del Method 04/20/23 03:19 36.8 C 90 18 126/74 92 Room Air 04/20/23 00:00 84 04/19/23 23:13 36.7 C 89 18 124/70 94 Room Air 04/19/23 20:00 Room Air 04/19/23 19:37 37.5 C 104 H 18 131/76 90 Room Air PG Care Time/CCT Total # of Minutes Spent Total Time Spent with Patient: Total time spent is greater than 50% in coordination of care (as documented) at patient's floor/unit and/or counseling patient: Coding Level of Care Code 17626 Post Operative Follow-Up Diagnoses Diverticulitis of large intestine with complication K57.32
[2023-04-20] MEDS ORDERED: MAGNESIUM SULFATE / D5W 1 GM/100 ML BAG IV ONE (09:19)
[2023-04-20] MEDS: MONTELUKAST SODIUM 10 MG TABLET PO SCH (09:38)
[2023-04-20] MEDS: METOPROLOL SUCC 25MG EXT REL TAB PO SCH (09:39)
[2023-04-20] MEDS: ASCORBIC ACID 500 MG TAB PO SCH (09:39)
[2023-04-20] MEDS: ADVANCED PROBIOTIC 1250 MG CAPSULE PO SCH (09:39)
[2023-04-20] MEDS: MULTIVITAMIN TAB PO SCH (09:39)
[2023-04-20] MEDS: UMECLIDINIUM/VILANTEROL 62.5/25MCG 7 PUFFS/INHALER INH SCH (09:39)
[2023-04-20] MEDS: FLUTICASONE FUROATE 200MCG 14 PUFFS/INHALER INH SCH (09:40)
[2023-04-20] MEDS: CHOLECALCIFEROL 1,000 UNITS 25 MCG TAB PO SCH (09:40)
[2023-04-20] MEDS: PANTOprazole 40 MG TAB PO SCH ×2 (09:40→20:59)
[2023-04-20] MEDS: GLUCOSAMINE SULFATE 500 MG CAP PO SCH (09:40)
[2023-04-20] MEDS: ENOXAPARIN INJ 40 MG/0.4 ML SYR SQ SCH (09:41)
[2023-04-20] MEDS: POTASSIUM CHLORIDE CRTAB 20 MEQ TABCR PO SCH ×3 (09:49→21:00)
[2023-04-20] MEDS: PROMETHAZINE HCL 6.25 MG in SODIUM CHLORIDE 0.9% 50 ML IV PRN ×2 (11:45→17:27)
--- NOTE | 2023-04-20 18:52 | Hospitalist Progress Note ---
Date of Service April 20, 2023 Assessment & Plan (1) Generalized weakness: Plan: Note as per prior provider with some edits as needed. 77-year-old female with past med significant for hyperlipidemia, asthma mild persistent, chronic sinusitis, history of CAD, patent foramen ovale, atrial septal aneurysm, GERD, diverticulitis of sigmoid colon, osteoporosis, aspirin contraindicated, presents with nausea and weakness and not feeling well. Patient had prolonged antibiotic course for diverticular abscess. She was admitted initially on February 10 at [facility] for diverticular abscess treated with Vanco cefepime and metronidazole and she was discharged on cefdinir and metronidazole. She followed with PCP for abdominal pain March 03. CT scan showed diffuse diverticulitis with abscess abscess measuring 3.2 x 2.0 x 3.4 cm. Patient was admitted to [facility]. CT scan also showed some nonspecific GALLBLADDER wall thickening. She had cholecystectomy on 03/08. 03/12/23 had worsening nausea and abdominal pain and repeat his CAT scan showed increasing diverticular abscess to 2.6 x 4.7 cm. General surgery consulted and advised for transfer to [place] for IR drainage. At [place] IR drainage was deemed unsuitable due to its intramural location. ID was consulted. ID recommended IV Invanz. Had PICC line and was discharged. ID recommended Invanz for 21 days. Again she was admitted [facility] on 03/22/23 for weakness and abdominal pain. ID was consulted and Invanz was changed to Cipro and Flagyl due to nausea. As Patient having persistent nausea and poor appetite on March 28 GI was consulted. Repeat CT scan showed increased size of abscess. GI recommended advanced endoscopist for possible drainage. And she was transferred to [place] on March 29. At [place] antibiotics were changed Zosyn after testing for allergy. GI attempted lower endoscopy / endoscopic ultrasound and flexible sigmoidoscopy on 04/01/23 but was not completed due to severe diverticulosis in the sigmoid colon with narrowing of colon and spasm. IR attempted percutaneous drainage but this was aborted as a repeat CT demonstrated no abscess to drain. It was thought that abscess may have self drained after manipulation by GI. Zosyn was switched to p.o. Cipro and Augmentin and was stable to discharge 2022 for total of 9 more days of p.o. antibiotics. Presented to [facility] again with generalized weakness, nausea and poor appetite Recurrent Diverticular abscess Possible colovaginal abscess S/P Exploratory Laparoscopy with laparoscopic Colectomy on April 14, 2023 Multiple hospitalizations in the last 2-month due to diverticular abscess as listed above Status post Augmentin and Cipro (Completed on April 11, 2023) --Repeat CT abdomen and pelvis done during the hospitalization; wall thickening of sigmoid colon with surrounding inflammation. Multiloculated intramural abscess in sigmoid colon as well. Underwent colonoscopy by surgery on April 12urulent discharge from vagina during colonoscopy manipulation. Suspect potential fistula to the vagina. --Culture from the colonoscopy shows Yumiko albicans/dublinensis --Completed 4 days of antifungal given her culture results from colonoscopy. She also finished 4 days of IV antibiotic postoperatively. Antibiotic discontinued as per recommendation by ID Pain control PATRICIA removed on 04/20/2023 Appreciate surgery input Continue low fiber diet Monitor ostomy output Needs follow-up with surgery upon discharge Rehab as able Hypokalemia Hypocalcemia Hypophosphatemia Hypomagnesemia Replace electrolytes as needed Abnormal EKG Nonspecific ST-T wave changes Denies cardiac symptoms H/O CAD Continue statin, beta-elisabeth GERD Continue Protonix Hyperlipidemia Continue statin H/O Asthma Continue Home inhalers On montelukast Right kidney lesion On the CAT scan previous admission Needs follow-up as outpatient DVT Px: Lovenox SQ Disposition Rehab as able Admission and Anticipated Discharge Date Admission Date: April 06, 2023 Subjective Patient is seen and examined at bedside Reports decreased appetite Also reports nausea, generalized weakness and mild soreness at site of surgery Abdominal drain was removed today Denies any chest pain, dyspnea No other complaints Review of Systems Review of Systems: All systems reviewed & are unremarkable except as noted in Subjective Physical Exam Physical Exam: Physical Exam: Vitals signs as noted above General Appearance:Moderately built and nourished, no apparent distress Head: normocephalic, Atraumatic Eyes: normal inspection, EOMI Neck: supple, Trachea midline Respiratory/Chest: Decreased breath sounds, CTA, No accessory muscle use Cardiovascular: S1, S2, No murmur Abdomen/GI:Soft, Non tender, Bowel sounds present, +Colostomy Extremities/Musculoskeletal:normal inspection, no edema Neurologic/Psych:AAOX3, grossly no focal neurological deficits Skin: normal color, warm Results & Data Results & Data Vital Signs (Past 12 Hours) Vital Signs Temp Pulse Pulse Resp BP Pulse Ox O2 Del Method 04/20/23 15:39 36.9 C 84 16 117/71 90 Room Air 04/20/23 14:00 92 H 04/20/23 11:53 36.7 C 95 H 16 138/78 92 Room Air 04/20/23 08:44 37.0 C 95 H 16 120/76 92 Room Air Laboratory Results Short CBC 04/20/23 Range/Units 04:44 WBC 5.67 (4.8-10.8) K/ul Hgb 7.4 L (12.0-16.0) g/dl Hct 22.6 L (37.0-47.0) % Plt Count 318 (130-400) K/uL BMP 04/20/23 04:44 Sodium 137 Potassium 3.1 L Chloride 104 Carbon Dioxide 26 BUN 5 L Creatinine 0.38 L Glucose 97 Calcium 7.6 L
[2023-04-20] MEDS: ROSUVASTATIN CALCIUM 20 MG TAB PO SCH (20:59)
[2023-04-21 06:24] LABS: Hematocrit (blood only) 25.6 % (37.0-47.0); Mean Corpuscular Hemoglobin 27.8 pg (25.0-34.0); Mean Corpuscular Hgb Conc 31.3 g/dL (32.0-36.0); Mean Corpuscular Volume 88.9 fL (80.0-100.0); Mean Platelet Volume 9.5 fL (9.4-12.4); Platelet Count 337 K/uL (130-400); RDW Coefficient of Variation 16.1 % (11.5-14.5); RDW Standard Deviation 50.3 fL (36.4-46.3); Red Blood Count 2.88 M/uL (4.20-5.40); White Blood Count 5.03 K/ul (4.8-10.8)
[2023-04-21 06:49] LABS: BUN Creatinine Ratio 16.7 (10-20); Creatinine Clr Calc Pharmacy 116.4 ml/min; Est GFR (African American) 121.4 ml/min; Est GFR (Non-African American) 104.7 ml/min; Magnesium 1.5 mg/dl (1.7-2.4); Potassium 3.8 mmol/L (3.5-5.1)
[2023-04-21] MEDS: POTASSIUM CHLORIDE CRTAB 20 MEQ TABCR PO SCH ×3 (09:17→20:30)
[2023-04-21] MEDS: PANTOprazole 40 MG TAB PO SCH ×2 (09:18→20:30)
[2023-04-21] MEDS: ASCORBIC ACID 500 MG TAB PO SCH (09:18)
[2023-04-21] MEDS: MULTIVITAMIN TAB PO SCH (09:18)
[2023-04-21] MEDS: CHOLECALCIFEROL 1,000 UNITS 25 MCG TAB PO SCH (09:19)
[2023-04-21] MEDS: GLUCOSAMINE SULFATE 500 MG CAP PO SCH (09:19)
[2023-04-21] MEDS: METOPROLOL SUCC 25MG EXT REL TAB PO SCH (09:19)
[2023-04-21] MEDS: ADVANCED PROBIOTIC 1250 MG CAPSULE PO SCH (09:19)
[2023-04-21] MEDS: MONTELUKAST SODIUM 10 MG TABLET PO SCH (09:19)
[2023-04-21] MEDS: UMECLIDINIUM/VILANTEROL 62.5/25MCG 7 PUFFS/INHALER INH SCH (09:24)
[2023-04-21] MEDS: ENOXAPARIN INJ 40 MG/0.4 ML SYR SQ SCH (09:25)
[2023-04-21] MEDS: MAGNESIUM SULFATE / D5W 1 GM/100 ML BAG IV SCH ×2 (09:32→11:51)
[2023-04-21] MEDS: FLUTICASONE FUROATE 200MCG 14 PUFFS/INHALER INH SCH (12:41)
--- NOTE | 2023-04-21 16:28 | Hospitalist Progress Note ---
Date of Service April 21, 2023 Assessment & Plan (1) Generalized weakness: Plan: Note as per prior provider with some edits as needed. 77-year-old female with past med significant for hyperlipidemia, asthma mild persistent, chronic sinusitis, history of CAD, patent foramen ovale, atrial septal aneurysm, GERD, diverticulitis of sigmoid colon, osteoporosis, aspirin contraindicated, presents with nausea and weakness and not feeling well. Patient had prolonged antibiotic course for diverticular abscess. She was admitted initially on February 10 at [facility] for diverticular abscess treated with Vanco cefepime and metronidazole and she was discharged on cefdinir and metronidazole. She followed with PCP for abdominal pain March 03. CT scan showed diffuse diverticulitis with abscess abscess measuring 3.2 x 2.0 x 3.4 cm. Patient was admitted to [facility]. CT scan also showed some nonspecific GALLBLADDER wall thickening. She had cholecystectomy on 03/08. 03/12/23 had worsening nausea and abdominal pain and repeat his CAT scan showed increasing diverticular abscess to 2.6 x 4.7 cm. General surgery consulted and advised for transfer to [place] for IR drainage. At [place] IR drainage was deemed unsuitable due to its intramural location. ID was consulted. ID recommended IV Invanz. Had PICC line and was discharged. ID recommended Invanz for 21 days. Again she was admitted [facility] on 03/22/23 for weakness and abdominal pain. ID was consulted and Invanz was changed to Cipro and Flagyl due to nausea. As Patient having persistent nausea and poor appetite on March 28 GI was consulted. Repeat CT scan showed increased size of abscess. GI recommended advanced endoscopist for possible drainage. And she was transferred to [place] on March 29. At [place] antibiotics were changed Zosyn after testing for allergy. GI attempted lower endoscopy / endoscopic ultrasound and flexible sigmoidoscopy on 04/01/23 but was not completed due to severe diverticulosis in the sigmoid colon with narrowing of colon and spasm. IR attempted percutaneous drainage but this was aborted as a repeat CT demonstrated no abscess to drain. It was thought that abscess may have self drained after manipulation by GI. Zosyn was switched to p.o. Cipro and Augmentin and was stable to discharge 2022 for total of 9 more days of p.o. antibiotics. Presented to [facility] again with generalized weakness, nausea and poor appetite Recurrent Diverticular abscess Possible colovaginal abscess S/P Exploratory Laparoscopy with laparoscopic Colectomy on April 14, 2023 Multiple hospitalizations in the last 2-month due to diverticular abscess as listed above Status post Augmentin and Cipro (Completed on April 11, 2023) --Repeat CT abdomen and pelvis done during the hospitalization; wall thickening of sigmoid colon with surrounding inflammation. Multiloculated intramural abscess in sigmoid colon as well. Underwent colonoscopy by surgery on April 12urulent discharge from vagina during colonoscopy manipulation. Suspect potential fistula to the vagina. --Culture from the colonoscopy shows Yumiko albicans/dublinensis --Completed 4 days of antifungal given her culture results from colonoscopy. She also finished 4 days of IV antibiotic postoperatively. Antibiotic discontinued as per recommendation by ID Pain control PATRICIA removed on 04/20/2023 Appreciate surgery input Continue low fiber diet Monitor ostomy output Needs follow-up with surgery upon discharge Rehab Vs HH to be determined Continue PT/OT Appetite slowly improving Hypokalemia Hypocalcemia Hypophosphatemia Hypomagnesemia Replace electrolytes as needed Abnormal EKG Nonspecific ST-T wave changes Denies cardiac symptoms H/O CAD Continue statin, beta-elisabeth GERD Continue Protonix Hyperlipidemia Continue statin H/O Asthma Continue Home inhalers On montelukast Right kidney lesion On the CAT scan previous admission Needs follow-up as outpatient DVT Px: Lovenox SQ Disposition To be determined Admission and Anticipated Discharge Date Admission Date: April 06, 2023 Subjective Patient is seen and examined at bedside Appetite slowly improving Nausea resolved Reports mild pain at surgical site No other complaints Denies any chest pain, dyspnea Review of Systems Review of Systems: All systems reviewed & are unremarkable except as noted in Subjective Physical Exam Physical Exam: Physical Exam: Vitals signs as noted above General Appearance:Moderately built and nourished, no apparent distress Head: normocephalic, Atraumatic Eyes: normal inspection, EOMI Neck: supple, Trachea midline Respiratory/Chest: Decreased breath sounds, CTA, No accessory muscle use Cardiovascular: S1, S2, No murmur Abdomen/GI:Soft, Non tender, Bowel sounds present, +Colostomy Extremities/Musculoskeletal:normal inspection, no edema Neurologic/Psych:AAOX3, grossly no focal neurological deficits Skin: normal color, warm Results & Data Results & Data Vital Signs (Past 12 Hours) Vital Signs Temp Pulse Pulse Resp BP BP Pulse Ox 04/21/23 16:02 37 C 94 H 17 118/62 90 04/21/23 14:02 90 04/21/23 11:25 36.6 C 91 H 18 111/71 91 04/21/23 07:59 36.6 C 87 17 116/67 94 04/21/23 06:00 78 O2 Del Method 04/21/23 16:02 Room Air 04/21/23 14:02 04/21/23 11:25 Room Air 04/21/23 07:59 Room Air 04/21/23 06:00 Laboratory Results Short CBC 04/21/23 Range/Units 05:33 WBC 5.03 (4.8-10.8) K/ul Hgb 8.0 L (12.0-16.0) g/dl Hct 25.6 L (37.0-47.0) % Plt Count 337 (130-400) K/uL BMP 04/21/23 05:33 Sodium 141 Potassium 3.8 D Chloride 108 H Carbon Dioxide 26 BUN 6 Creatinine 0.36 L Glucose 88 Calcium 8.0 L
[2023-04-21] MEDS: PROMETHAZINE HCL 6.25 MG in SODIUM CHLORIDE 0.9% 50 ML IV PRN (16:39)
[2023-04-21] MEDS: ROSUVASTATIN CALCIUM 20 MG TAB PO SCH (20:30)
[2023-04-21] MEDS: MAGNESIUM CHLORIDE W/CALCIUM 64MG DELAYED REL TAB PO SCH (20:30)
[2023-04-22 06:45] LABS: BUN Creatinine Ratio 15.9 (10-20); Calcium 8.2 mg/dl (8.6-10.3); Creatinine Clr Calc Pharmacy 95.6 ml/min; Est GFR (African American) 113.6 ml/min; Est GFR (Non-African American) 98.1 ml/min; Magnesium 1.8 mg/dl (1.7-2.4); Potassium 4.3 mmol/L (3.5-5.1)
--- NOTE | 2023-04-22 07:20 | Surgery Progress Note ---
Date of Service April 21, 2023 Assessment & Plan (1) Diverticulitis of large intestine with complication: (2) Nausea: Plan S/p Vicente's. Patient's nausea initially resolved with the discontinuation of K pills but has returned. She remains afebrile with stable VSS. Diarrhea is resolved. She does continue to c/o decreased appetite although she is able to tolerate carnation instant breakfast. She says she does not find the taste or texture of some of the meal she receives to be pleasng and edible to her. May consider around the clock antinausea medication as opposed to PRN. May also consider an appetite stimulant. Admission and Anticipated Discharge Date Admission Date: April 06, 2023 Subjective Patient's nausea returned. She is unsure as to whether or not this was before or after the potassium pills were resumed for low potassium again. She says she feels wiped out but does work with PT and OT. Physical Exam Constitutional: not ill appearing, not in distress and not diaphoretic Respiratory: normal respiratory effort; no respiratory distress, no labored breathing and does not use accessory muscles Gastrointestinal (Abdomen): Stoma appears healthy and is functioning with more solid stool in the bag this am. Minimal abdominal soreness around stoma site. Laparoscopic incisions continue to be healing well. Results & Data Vital Signs (Past 12 Hours) Vital Signs Temp Pulse Pulse Resp BP Pulse Ox O2 Del Method 04/22/23 03:05 36.6 C 81 16 120/75 94 Room Air 04/21/23 23:02 36.8 C 88 16 107/68 93 Room Air 04/21/23 21:58 82 04/21/23 19:43 36.9 C 88 14 103/58 L 93 Room Air 04/21/23 19:30 Room Air PG Care Time/CCT Total # of Minutes Spent Total Time Spent with Patient: Total time spent is greater than 50% in coordination of care (as documented) at patient's floor/unit and/or counseling patient: Coding Level of Care Code 83822 Post Operative Follow-Up Diagnoses Diverticulitis of large intestine with complication K57.32 Nausea R11.0
[2023-04-22] MEDS: POTASSIUM CHLORIDE CRTAB 20 MEQ TABCR PO SCH ×3 (09:36→21:08)
[2023-04-22] MEDS: MAGNESIUM CHLORIDE W/CALCIUM 64MG DELAYED REL TAB PO SCH ×2 (09:36→21:08)
[2023-04-22] MEDS: CHOLECALCIFEROL 1,000 UNITS 25 MCG TAB PO SCH (09:36)
[2023-04-22] MEDS: PANTOprazole 40 MG TAB PO SCH ×2 (09:37→21:08)
[2023-04-22] MEDS: ADVANCED PROBIOTIC 1250 MG CAPSULE PO SCH (09:37)
[2023-04-22] MEDS: MULTIVITAMIN TAB PO SCH (09:37)
[2023-04-22] MEDS: MONTELUKAST SODIUM 10 MG TABLET PO SCH (09:37)
[2023-04-22] MEDS: ASCORBIC ACID 500 MG TAB PO SCH (09:37)
[2023-04-22] MEDS: METOPROLOL SUCC 25MG EXT REL TAB PO SCH (09:37)
[2023-04-22] MEDS: ENOXAPARIN INJ 40 MG/0.4 ML SYR SQ SCH (09:38)
[2023-04-22] MEDS: FLUTICASONE FUROATE 200MCG 14 PUFFS/INHALER INH SCH (09:38)
[2023-04-22] MEDS: GLUCOSAMINE SULFATE 500 MG CAP PO SCH (09:38)
[2023-04-22] MEDS: UMECLIDINIUM/VILANTEROL 62.5/25MCG 7 PUFFS/INHALER INH SCH (09:38)
[2023-04-22] MEDS: PROMETHAZINE HCL 6.25 MG in SODIUM CHLORIDE 0.9% 50 ML IV PRN (10:35)
--- NOTE | 2023-04-22 16:10 | Hospitalist Progress Note ---
Date of Service April 22, 2023 Assessment & Plan (1) Generalized weakness: Plan: Note as per prior provider with some edits as needed. 77-year-old female with past med significant for hyperlipidemia, asthma mild persistent, chronic sinusitis, history of CAD, patent foramen ovale, atrial septal aneurysm, GERD, diverticulitis of sigmoid colon, osteoporosis, aspirin contraindicated, presents with nausea and weakness and not feeling well. Patient had prolonged antibiotic course for diverticular abscess. She was admitted initially on February 10 at [facility] for diverticular abscess treated with Vanco cefepime and metronidazole and she was discharged on cefdinir and metronidazole. She followed with PCP for abdominal pain March 03. CT scan showed diffuse diverticulitis with abscess abscess measuring 3.2 x 2.0 x 3.4 cm. Patient was admitted to [facility]. CT scan also showed some nonspecific GALLBLADDER wall thickening. She had cholecystectomy on 03/08. 03/12/23 had worsening nausea and abdominal pain and repeat his CAT scan showed increasing diverticular abscess to 2.6 x 4.7 cm. General surgery consulted and advised for transfer to [place] for IR drainage. At [place] IR drainage was deemed unsuitable due to its intramural location. ID was consulted. ID recommended IV Invanz. Had PICC line and was discharged. ID recommended Invanz for 21 days. Again she was admitted [facility] on 03/22/23 for weakness and abdominal pain. ID was consulted and Invanz was changed to Cipro and Flagyl due to nausea. As Patient having persistent nausea and poor appetite on March 28 GI was consulted. Repeat CT scan showed increased size of abscess. GI recommended advanced endoscopist for possible drainage. And she was transferred to [place] on March 29. At [place] antibiotics were changed Zosyn after testing for allergy. GI attempted lower endoscopy / endoscopic ultrasound and flexible sigmoidoscopy on 04/01/23 but was not completed due to severe diverticulosis in the sigmoid colon with narrowing of colon and spasm. IR attempted percutaneous drainage but this was aborted as a repeat CT demonstrated no abscess to drain. It was thought that abscess may have self drained after manipulation by GI. Zosyn was switched to p.o. Cipro and Augmentin and was stable to discharge 2022 for total of 9 more days of p.o. antibiotics. Presented to [facility] again with generalized weakness, nausea and poor appetite Recurrent Diverticular abscess Possible colovaginal abscess S/P Exploratory Laparoscopy with laparoscopic Colectomy on April 14, 2023 Multiple hospitalizations in the last 2-month due to diverticular abscess as listed above Status post Augmentin and Cipro (Completed on April 11, 2023) --Repeat CT abdomen and pelvis done during the hospitalization; wall thickening of sigmoid colon with surrounding inflammation. Multiloculated intramural abscess in sigmoid colon as well. Underwent colonoscopy by surgery on April 12urulent discharge from vagina during colonoscopy manipulation. Suspect potential fistula to the vagina. --Culture from the colonoscopy shows Yumiko albicans/dublinensis --Completed 4 days of antifungal given her culture results from colonoscopy. She also finished 4 days of IV antibiotic postoperatively. Antibiotic discontinued as per recommendation by ID Pain control PATRICIA removed on 04/20/2023 Appreciate surgery input Continue low fiber diet Monitor ostomy output Needs follow-up with surgery upon discharge Rehab Vs HH to be determined Continue PT/OT Appetite slowly improving Continue current management Encouraged to increase oral intake Hypokalemia Hypocalcemia Hypophosphatemia Hypomagnesemia Replace electrolytes as needed Abnormal EKG Nonspecific ST-T wave changes Denies cardiac symptoms H/O CAD Continue statin, beta-elisabeth GERD Continue Protonix Hyperlipidemia Continue statin H/O Asthma Continue Home inhalers On montelukast Right kidney lesion On the CAT scan previous admission Needs follow-up as outpatient DVT Px: Lovenox SQ Disposition To be determined Admission and Anticipated Discharge Date Admission Date: April 06, 2023 Subjective Patient is seen and examined at bedside Reports intermittent nausea Appetite remains poor Denies any abdominal pain today Also denies any chest pain, dyspnea, dizziness Review of Systems Review of Systems: All systems reviewed & are unremarkable except as noted in Subjective Physical Exam Physical Exam: Physical Exam: Vitals signs as noted above General Appearance:Moderately built and nourished, no apparent distress Head: normocephalic, Atraumatic Eyes: normal inspection, EOMI Neck: supple, Trachea midline Respiratory/Chest: Decreased breath sounds, CTA, No accessory muscle use Cardiovascular: S1, S2, No murmur Abdomen/GI:Soft, Non tender, Bowel sounds present, +Colostomy Extremities/Musculoskeletal:normal inspection, no edema Neurologic/Psych:AAOX3, grossly no focal neurological deficits Skin: normal color, warm Results & Data Results & Data Vital Signs (Past 12 Hours) Vital Signs Temp Pulse Pulse Resp BP Pulse Ox O2 Del Method 04/22/23 16:03 85 04/22/23 11:49 36.6 C 97 H 16 117/66 92 Room Air 04/22/23 09:50 Room Air 04/22/23 08:14 36.7 C 89 16 110/66 93 Room Air 04/22/23 07:33 83 Laboratory Results [facility] 04/22/23 05:20 Sodium 139 Potassium 4.3 Chloride 108 H Carbon Dioxide 25 BUN 7 Creatinine 0.44 L Glucose 91 Calcium 8.2 L
[2023-04-22] MEDS: ROSUVASTATIN CALCIUM 20 MG TAB PO SCH (21:08)
[2023-04-23 05:32] LABS: Hematocrit (blood only) 25.5 % (37.0-47.0); Hemoglobin 8.3 g/dl (12.0-16.0)
--- NOTE | 2023-04-23 05:44 | Surgery Progress Note ---
Date of Service April 23, 2023 Assessment & Plan (1) Diverticulitis of large intestine with complication: Plan: Status post Vicente procedure on 04/14/2023 (postop day #9) Mobilize as able Due to persistent nausea I have changed the patient's Phenergan to scheduled dosing as opposed to as needed Continue diet as tolerated Check a.m. labs when available Lovenox is in place for DVT prevention Plan I have seen and examined this patient this am and I agree with the above. Stoma still appears healthy and is functioning. She remains afebrile. Phenergan changed to scheduled. Will see if this helps with the nausea. Potassium is very elevated this am to 4.6. It was just over 4 yesterday. She has still been on 20mg K TID. I have placed this medication on hold. F/U am labs. Continue ambulation. Continue diet. Admission and Anticipated Discharge Date Admission Date: April 06, 2023 Subjective Patient is currently resting comfortably in bed. She notes that she is tolerating soft food without emesis but she is having some persistent nausea. She notes her abdominal pain is well-controlled. She denies any fevers, shakes, or chills. No nausea or vomiting. Physical Exam Gastrointestinal (Abdomen): Bowel sounds are present. Incisions are clean, dry, and intact. Abdomen is soft without rebound tenderness or guarding. There is minimal pain with palpation. Results & Data Vital Signs (Past 12 Hours) Vital Signs Temp Pulse Pulse Resp BP BP Pulse Ox 04/23/23 04:00 36.5 C 85 16 117/74 94 04/22/23 23:28 36.9 C 75 16 106/65 94 04/22/23 22:06 04/22/23 22:00 85 04/22/23 21:41 82 04/22/23 20:13 36.8 C 95 H 18 144/75 H 93 O2 Del Method 04/23/23 04:00 Room Air 04/22/23 23:28 Room Air 04/22/23 22:06 Room Air 04/22/23 22:00 04/22/23 21:41 04/22/23 20:13 Room Air PG Care Time/CCT Total # of Minutes Spent Total Time Spent with Patient: Total time spent is greater than 50% in coordination of care (as documented) at patient's floor/unit and/or counseling patient: Coding Level of Care Code 35442 Post Operative Follow-Up Diagnoses Diverticulitis of large intestine with complication K57.32
[2023-04-23 05:46] LABS: BUN Creatinine Ratio 13.7 (10-20); Calcium 8.5 mg/dl (8.6-10.3); Creatinine Clr Calc Pharmacy 81.6 ml/min; Est GFR (African American) 108.3 ml/min; Est GFR (Non-African American) 93.4 ml/min; Magnesium 1.6 mg/dl (1.7-2.4); Potassium 4.6 mmol/L (3.5-5.1)
[2023-04-23] MEDS: PROMETHAZINE HCL 6.25 MG in SODIUM CHLORIDE 0.9% 50 ML IV SCH ×3 (06:43→17:10)
[2023-04-23] MEDS: POTASSIUM CHLORIDE CRTAB 20 MEQ TABCR PO SCH (09:13)
[2023-04-23] MEDS: PANTOprazole 40 MG TAB PO SCH ×2 (09:14→20:33)
[2023-04-23] MEDS: METOPROLOL SUCC 25MG EXT REL TAB PO SCH (09:17)
[2023-04-23] MEDS: GLUCOSAMINE SULFATE 500 MG CAP PO SCH (09:17)
[2023-04-23] MEDS: MAGNESIUM CHLORIDE W/CALCIUM 64MG DELAYED REL TAB PO SCH ×2 (09:17→20:33)
[2023-04-23] MEDS: CHOLECALCIFEROL 1,000 UNITS 25 MCG TAB PO SCH (09:17)
[2023-04-23] MEDS: ADVANCED PROBIOTIC 1250 MG CAPSULE PO SCH (09:18)
[2023-04-23] MEDS: ASCORBIC ACID 500 MG TAB PO SCH (09:18)
[2023-04-23] MEDS: MULTIVITAMIN TAB PO SCH (09:18)
[2023-04-23] MEDS: MONTELUKAST SODIUM 10 MG TABLET PO SCH (09:18)
[2023-04-23] MEDS: FLUTICASONE FUROATE 200MCG 14 PUFFS/INHALER INH SCH (09:18)
[2023-04-23] MEDS: UMECLIDINIUM/VILANTEROL 62.5/25MCG 7 PUFFS/INHALER INH SCH (09:19)
[2023-04-23] MEDS: ENOXAPARIN INJ 40 MG/0.4 ML SYR SQ SCH (09:19)
[2023-04-23] MEDS ORDERED: MAGNESIUM SULFATE / D5W 1 GM/100 ML BAG IV ONE (10:25)
--- NOTE | 2023-04-23 18:24 | Hospitalist Progress Note ---
Date of Service April 23, 2023 Assessment & Plan (1) Generalized weakness: Plan: Note as per prior provider with some edits as needed. 77-year-old female with past med significant for hyperlipidemia, asthma mild persistent, chronic sinusitis, history of CAD, patent foramen ovale, atrial septal aneurysm, GERD, diverticulitis of sigmoid colon, osteoporosis, aspirin contraindicated, presents with nausea and weakness and not feeling well. Patient had prolonged antibiotic course for diverticular abscess. She was admitted initially on February 10 at [facility] for diverticular abscess treated with Vanco cefepime and metronidazole and she was discharged on cefdinir and metronidazole. She followed with PCP for abdominal pain March 03. CT scan showed diffuse diverticulitis with abscess abscess measuring 3.2 x 2.0 x 3.4 cm. Patient was admitted to [facility]. CT scan also showed some nonspecific GALLBLADDER wall thickening. She had cholecystectomy on 03/08. 03/12/23 had worsening nausea and abdominal pain and repeat his CAT scan showed increasing diverticular abscess to 2.6 x 4.7 cm. General surgery consulted and advised for transfer to [place] for IR drainage. At [place] IR drainage was deemed unsuitable due to its intramural location. ID was consulted. ID recommended IV Invanz. Had PICC line and was discharged. ID recommended Invanz for 21 days. Again she was admitted [facility] on 03/22/23 for weakness and abdominal pain. ID was consulted and Invanz was changed to Cipro and Flagyl due to nausea. As Patient having persistent nausea and poor appetite on March 28 GI was consulted. Repeat CT scan showed increased size of abscess. GI recommended advanced endoscopist for possible drainage. And she was transferred to [place] on March 29. At [place] antibiotics were changed Zosyn after testing for allergy. GI attempted lower endoscopy / endoscopic ultrasound and flexible sigmoidoscopy on 04/01/23 but was not completed due to severe diverticulosis in the sigmoid colon with narrowing of colon and spasm. IR attempted percutaneous drainage but this was aborted as a repeat CT demonstrated no abscess to drain. It was thought that abscess may have self drained after manipulation by GI. Zosyn was switched to p.o. Cipro and Augmentin and was stable to discharge 2022 for total of 9 more days of p.o. antibiotics. Presented to [facility] again with generalized weakness, nausea and poor appetite Recurrent Diverticular abscess Possible colovaginal abscess S/P Exploratory Laparoscopy with laparoscopic Colectomy on April 14, 2023 Multiple hospitalizations in the last 2-month due to diverticular abscess as listed above Status post Augmentin and Cipro (Completed on April 11, 2023) --Repeat CT abdomen and pelvis done during the hospitalization; wall thickening of sigmoid colon with surrounding inflammation. Multiloculated intramural abscess in sigmoid colon as well. Underwent colonoscopy by surgery on April 12urulent discharge from vagina during colonoscopy manipulation. Suspect potential fistula to the vagina. --Culture from the colonoscopy shows Yumiko albicans/dublinensis --Completed 4 days of antifungal given her culture results from colonoscopy. She also finished 4 days of IV antibiotic postoperatively. Antibiotic discontinued as per recommendation by ID Pain control PATRICIA removed on 04/20/2023 Appreciate surgery input Continue low fiber diet Monitor ostomy output Needs follow-up with surgery upon discharge Rehab Vs HH to be determined Continue PT/OT Appetite slowly improving Continue current management Encouraged to increase oral intake Patient currently unsure if she can manage at home. May benefit from rehab placement Hypokalemia Hypocalcemia Hypophosphatemia Hypomagnesemia Replace electrolytes as needed Abnormal EKG Nonspecific ST-T wave changes Denies cardiac symptoms H/O CAD Continue statin, beta-elisabeth GERD Continue Protonix Hyperlipidemia Continue statin H/O Asthma Continue Home inhalers On montelukast Right kidney lesion On the CAT scan previous admission Needs follow-up as outpatient DVT Px: Lovenox SQ Disposition To be determined Admission and Anticipated Discharge Date Admission Date: April 06, 2023 Subjective Patient is seen and examined at bedside No new complaints Poor appetite Denies any chest pain, dyspnea, dizziness Reports generalized weakness Discussed with patient's family at bedside Review of Systems Review of Systems: All systems reviewed & are unremarkable except as noted in Subjective Physical Exam 2 Physical Exam: Physical Exam: Vitals signs as noted above General Appearance:Moderately built and nourished, no apparent distress Head: normocephalic, Atraumatic Eyes: normal inspection, EOMI Neck: supple, Trachea midline Respiratory/Chest: Decreased breath sounds, CTA, No accessory muscle use Cardiovascular: S1, S2, No murmur Abdomen/GI:Soft, Non tender, Bowel sounds present, +Colostomy Extremities/Musculoskeletal:normal inspection, no edema Neurologic/Psych:AAOX3, grossly no focal neurological deficits Skin: normal color, warm Results & Data Results & Data Vital Signs (Past 12 Hours) Vital Signs Temp Pulse Pulse Resp BP Pulse Ox O2 Del Method 04/23/23 16:36 36.8 C 86 16 115/51 L 93 Room Air 04/23/23 15:00 89 04/23/23 11:51 36.8 C 95 H 16 156/61 H 91 Room Air 04/23/23 08:25 36.8 C 83 16 137/77 93 Room Air 04/23/23 08:00 77 Laboratory Results Short CBC 04/23/23 Range/Units 04:46 Hgb 8.3 L (12.0-16.0) g/dl Hct 25.5 L (37.0-47.0) % BMP 04/23/23 04:46 Sodium 138 Potassium 4.6 Chloride 108 H Carbon Dioxide 25 BUN 7 Creatinine 0.51 L Glucose 91 Calcium 8.5 L
[2023-04-23] MEDS: ROSUVASTATIN CALCIUM 20 MG TAB PO SCH (20:33)
[2023-04-24] MEDS: PROMETHAZINE HCL 6.25 MG in SODIUM CHLORIDE 0.9% 50 ML IV SCH ×4 (00:35→21:24)
[2023-04-24] MEDS ORDERED: Nursing to Pharmacy Communication SCH (01:15)
--- NOTE | 2023-04-24 05:06 | Surgery Progress Note ---
Date of Service April 24, 2023 Assessment & Plan (1) Diverticulitis of large intestine with complication: Plan: Status post Vicente procedure on 04/14/2023 (postop day #10) Due to persistent nausea patient's antiemetics were changed to a scheduled basis. Nursing staff has requested that antiemetics be given at a time when patient receives oral medications as this appears to be when she becomes most nauseated. The timing of her medicines have been adjusted to reflect such Continue diet as tolerated; patient appears to have improved appetite over the past 24 hours Check a.m. labs when available Lovenox is in place for DVT prevention Admission and Anticipated Discharge Date Admission Date: April 06, 2023 Supervising Physician Co-Signing Physician Notes I have seen and examined this patient this am and I agree with the above. She remains afebrile, HD stable and is able to tolerate more food intake. Phenergan changed to scheduled and has improved her condition. Potassium came down slightly to 4.1 today from 4.6. Will see how she continues to trend. F/U am labs. Continue DVT ppx. Continue ambulation. Continue diet. Subjective Patient is currently resting comfortably in bed. The patient feels that overall that her nausea has improved since yesterday. The patient notes her appetite also seems has improved and she was able to eat solid food yesterday and a greater quantity than what she previously noted. She denies any abdominal pain. Physical Exam Gastrointestinal (Abdomen): Abdomen is soft and nonrigid. Bowel sounds are present. There is no pain with palpation. Patient's ostomy appears to be functioning appropriately. Results & Data Vital Signs (Past 12 Hours) Vital Signs Temp Pulse Pulse Resp BP Pulse Ox O2 Del Method 04/24/23 03:27 36.5 C 76 16 110/73 94 Room Air 04/23/23 23:36 36.7 C 83 16 115/70 92 Room Air 04/23/23 22:15 Room Air 04/23/23 21:50 79 04/23/23 19:55 37.0 C 85 16 108/67 94 Room Air PG Care Time/CCT Total # of Minutes Spent Total Time Spent with Patient: Total time spent is greater than 50% in coordination of care (as documented) at patient's floor/unit and/or counseling patient: Coding Level of Care Code 07663 Post Operative Follow-Up Diagnoses Diverticulitis of large intestine with complication K57.32
[2023-04-24 05:16] LABS: BUN Creatinine Ratio 17.3 (10-20); Calcium 8.7 mg/dl (8.6-10.3); Creatinine Clr Calc Pharmacy 80.1 ml/min; Est GFR (African American) 107.6 ml/min; Est GFR (Non-African American) 92.8 ml/min; Magnesium 1.9 mg/dl (1.7-2.4); Potassium 4.1 mmol/L (3.5-5.1)
[2023-04-24] MEDS: UMECLIDINIUM/VILANTEROL 62.5/25MCG 7 PUFFS/INHALER INH SCH (09:57)
[2023-04-24] MEDS: FLUTICASONE FUROATE 200MCG 14 PUFFS/INHALER INH SCH (09:57)
[2023-04-24] MEDS: METOPROLOL SUCC 25MG EXT REL TAB PO SCH (09:58)
[2023-04-24] MEDS: ASCORBIC ACID 500 MG TAB PO SCH (09:58)
[2023-04-24] MEDS: MAGNESIUM CHLORIDE W/CALCIUM 64MG DELAYED REL TAB PO SCH ×2 (09:58→21:24)
[2023-04-24] MEDS: MONTELUKAST SODIUM 10 MG TABLET PO SCH (09:58)
[2023-04-24] MEDS: MULTIVITAMIN TAB PO SCH (09:58)
[2023-04-24] MEDS: PANTOprazole 40 MG TAB PO SCH ×2 (09:58→21:24)
[2023-04-24] MEDS: ADVANCED PROBIOTIC 1250 MG CAPSULE PO SCH (09:59)
[2023-04-24] MEDS: ENOXAPARIN INJ 40 MG/0.4 ML SYR SQ SCH (09:59)
[2023-04-24] MEDS: GLUCOSAMINE SULFATE 500 MG CAP PO SCH (09:59)
[2023-04-24] MEDS: CHOLECALCIFEROL 1,000 UNITS 25 MCG TAB PO SCH (09:59)
--- NOTE | 2023-04-24 16:22 | Hospitalist Progress Note ---
Date of Service April 24, 2023 Assessment & Plan (1) Generalized weakness: Plan: Note as per prior provider with some edits as needed. 77-year-old female with past med significant for hyperlipidemia, asthma mild persistent, chronic sinusitis, history of CAD, patent foramen ovale, atrial septal aneurysm, GERD, diverticulitis of sigmoid colon, osteoporosis, aspirin contraindicated, presents with nausea and weakness and not feeling well. Patient had prolonged antibiotic course for diverticular abscess. She was admitted initially on February 10 at [facility] for diverticular abscess treated with Vanco cefepime and metronidazole and she was discharged on cefdinir and metronidazole. She followed with PCP for abdominal pain March 03. CT scan showed diffuse diverticulitis with abscess abscess measuring 3.2 x 2.0 x 3.4 cm. Patient was admitted to [facility]. CT scan also showed some nonspecific GALLBLADDER wall thickening. She had cholecystectomy on 03/08. 03/12/23 had worsening nausea and abdominal pain and repeat his CAT scan showed increasing diverticular abscess to 2.6 x 4.7 cm. General surgery consulted and advised for transfer to [facility] for IR drainage. At [facility] IR drainage was deemed unsuitable due to its intramural location. ID was consulted. ID recommended IV Invanz. Had PICC line and was discharged. ID recommended Invanz for 21 days. Again she was admitted [facility] on 03/22/23 for weakness and abdominal pain. ID was consulted and Invanz was changed to Cipro and Flagyl due to nausea. As Patient having persistent nausea and poor appetite on March 28 GI was consulted. Repeat CT scan showed increased size of abscess. GI recommended advanced endoscopist for possible drainage. And she was transferred to [facility] on March 29. At [facility] antibiotics were changed Zosyn after testing for allergy. GI attempted lower endoscopy / endoscopic ultrasound and flexible sigmoidoscopy on 04/01/23 but was not completed due to severe diverticulosis in the sigmoid colon with narrowing of colon and spasm. IR attempted percutaneous drainage but this was aborted as a repeat CT demonstrated no abscess to drain. It was thought that abscess may have self drained after manipulation by GI. Zosyn was switched to p.o. Cipro and Augmentin and was stable to discharge 2022 for total of 9 more days of p.o. antibiotics. Presented to [facility] again with generalized weakness, nausea and poor appetite Recurrent Diverticular abscess Possible colovaginal abscess S/P Exploratory Laparoscopy with laparoscopic Colectomy on April 14, 2023 Multiple hospitalizations in the last 2-month due to diverticular abscess as listed above Status post Augmentin and Cipro (Completed on April 11, 2023) --Repeat CT abdomen and pelvis done during the hospitalization; wall thickening of sigmoid colon with surrounding inflammation. Multiloculated intramural abscess in sigmoid colon as well. Underwent colonoscopy by surgery on April 12urulent discharge from vagina during colonoscopy manipulation. Suspect potential fistula to the vagina. --Culture from the colonoscopy shows Yumiko albicans/dublinensis --Completed 4 days of antifungal given her culture results from colonoscopy. She also finished 4 days of IV antibiotic postoperatively. Antibiotic discontinued as per recommendation by ID Pain control PATRICIA removed on 04/20/2023 Appreciate surgery input Continue low fiber diet Monitor ostomy output Needs follow-up with surgery upon discharge Continue PT/OT Appetite slowly improving Encouraged to increase oral intake Patient prefers to be discharged home with home health likely tomorrow if continues to improve Case management following Hypokalemia Hypocalcemia Hypophosphatemia Hypomagnesemia Replace electrolytes as needed Abnormal EKG Nonspecific ST-T wave changes Denies cardiac symptoms H/O CAD Continue statin, beta-elisabeth GERD Continue Protonix Hyperlipidemia Continue statin H/O Asthma Continue Home inhalers On montelukast Right kidney lesion On the CAT scan previous admission Needs follow-up as outpatient DVT Px: Lovenox SQ Disposition To be determined Admission and Anticipated Discharge Date Admission Date: April 06, 2023 Subjective Patient is seen and examined at bedside States feeling better today Intermittent nausea Appetite slowly improving Denies any chest pain, dyspnea, dizziness No other complaints Review of Systems Review of Systems: All systems reviewed & are unremarkable except as noted in Subjective Physical Exam Physical Exam: Physical Exam: Vitals signs as noted above General Appearance:Moderately built and nourished, no apparent distress Head: normocephalic, Atraumatic Eyes: normal inspection, EOMI Neck: supple, Trachea midline Respiratory/Chest: Decreased breath sounds, CTA, No accessory muscle use Cardiovascular: S1, S2, No murmur Abdomen/GI:Soft, Non tender, Bowel sounds present, +Colostomy Extremities/Musculoskeletal:normal inspection, no edema Neurologic/Psych:AAOX3, grossly no focal neurological deficits Skin: normal color, warm Results & Data Results & Data Vital Signs (Past 12 Hours) Vital Signs Temp Pulse Pulse Resp BP Pulse Ox O2 Del Method 04/24/23 16:10 36.8 C 96 H 18 119/76 94 Room Air 04/24/23 14:54 78 04/24/23 11:24 36.7 C 89 18 121/71 90 Room Air 04/24/23 09:00 81 04/24/23 08:40 Room Air 04/24/23 07:53 36.8 C 81 18 114/61 91 Room Air Laboratory Results [facility] 04/24/23 04:15 Sodium 138 Potassium 4.1 Chloride 107 Carbon Dioxide 24 BUN 9 Creatinine 0.52 L Glucose 92 Calcium 8.7
[2023-04-24] MEDS: ROSUVASTATIN CALCIUM 20 MG TAB PO SCH (21:24)
[2023-04-25] MEDS: PROMETHAZINE HCL 6.25 MG in SODIUM CHLORIDE 0.9% 50 ML IV SCH ×2 (02:12→09:02)
[2023-04-25 05:43] LABS: BUN Creatinine Ratio 20.9 (10-20); Calcium 8.4 mg/dl (8.6-10.3); Creatinine Clr Calc Pharmacy 96.6 ml/min; Est GFR (African American) 114.5 ml/min; Est GFR (Non-African American) 98.8 ml/min; Potassium 3.8 mmol/L (3.5-5.1)
[2023-04-25 05:48] LABS: Hematocrit (blood only) 25.8 % (37.0-47.0); Hemoglobin 8.1 g/dl (12.0-16.0); Mean Corpuscular Hemoglobin 28.4 pg (25.0-34.0); Mean Corpuscular Hgb Conc 31.4 g/dL (32.0-36.0); Mean Corpuscular Volume 90.5 fL (80.0-100.0); Mean Platelet Volume 9.6 fL (9.4-12.4); Platelet Count 410 K/uL (130-400); RDW Coefficient of Variation 16.9 % (11.5-14.5); RDW Standard Deviation 55.1 fL (36.4-46.3); Red Blood Count 2.85 M/uL (4.20-5.40); White Blood Count 4.96 K/ul (4.8-10.8)
[2023-04-25] MEDS: FLUTICASONE FUROATE 200MCG 14 PUFFS/INHALER INH SCH (08:58)
[2023-04-25] MEDS: UMECLIDINIUM/VILANTEROL 62.5/25MCG 7 PUFFS/INHALER INH SCH (08:59)
[2023-04-25] MEDS: MULTIVITAMIN TAB PO SCH (08:59)
[2023-04-25] MEDS: MAGNESIUM CHLORIDE W/CALCIUM 64MG DELAYED REL TAB PO SCH (08:59)
[2023-04-25] MEDS: PANTOprazole 40 MG TAB PO SCH (08:59)
[2023-04-25] MEDS: CHOLECALCIFEROL 1,000 UNITS 25 MCG TAB PO SCH (09:00)
[2023-04-25] MEDS: MONTELUKAST SODIUM 10 MG TABLET PO SCH (09:00)
[2023-04-25] MEDS: ASCORBIC ACID 500 MG TAB PO SCH (09:00)
[2023-04-25] MEDS: GLUCOSAMINE SULFATE 500 MG CAP PO SCH (09:01)
[2023-04-25] MEDS: ADVANCED PROBIOTIC 1250 MG CAPSULE PO SCH (09:01)
[2023-04-25] MEDS: METOPROLOL SUCC 25MG EXT REL TAB PO SCH (09:01)
[2023-04-25] MEDS: ENOXAPARIN INJ 40 MG/0.4 ML SYR SQ SCH (09:01)
--- NOTE | 2023-04-25 09:20 | Surgery Progress Note ---
<Statement entered by Lili Alegre, - 04/25/23 13:00> I have seen and examined this patient with the surgical PA. I agree with this plan. Date of Service April 25, 2023 Assessment & Plan (1) Nausea: Plan: POD 11 04/14/23 Exploratory Laparoscopy, Laparoscopic Colectomy Patient sitting in bed, reports less nausea since starting Phenergan. Appetite not at goal but improving daily, does not care for food she is recei ving Denies pain at present Colostomy pink , with brown stool in bag VSS Recommend she is be d/c with PO Phenergan given Q6H for nausea 20Meq of PO potassium given in the evening once daily Outpatient f/u with urology for renal mass noted on CT scan Follow up with PCP this week for electrolyte check and f/u with Dr. Arnie Foss the first week of May. Patient to call office with questions or concerns. Patient seen and examined with Dr. Alegre (2) Diverticulitis of large intestine with complication: Admission and Anticipated Discharge Date Admission Date: April 06, 2023 Subjective patient resting in bed Reports less nausea this AM however has not eaten yet Denies pain Review of Systems Constitutional: no fever and no chills Eyes: no problem reported Ear, Nose, Mouth, Throat: no hearing loss Respiratory: no dyspnea Cardiovascular: no chest pain Gastrointestinal: + nausea; no abdominal pain and no vomit ing Genitourinary: no problem reported Musculoskeletal: no problem reported Neurologic: no confusion and no memory loss Physical Exam Physical Exam: alert oriented Constitutional: well developed, cooperative and comfortable; no acute distress ENMT: external ear and nose normal, oropharynx normal Neck: trachea midline, no thyromegaly Respiratory: normal respiratory effort and able to speak in complete sentences; no respiratory distress and does not use accessory muscles Cardiovascular: Rate/Rhythm: regular rate Gastrointestinal (Abdomen): Inspection/Auscultation: abdomen not distended Percussion/Palpation: abdomen soft; no guarding and no hernia colostomy pink with brown colored stool in bag Neurologic: not confused Speech / Cognition: normal speech Psychiatric: Orientation: oriented x 3 and cooperative Results & Data Vital Signs (Past 12 Hours) Vital Signs Temp Pulse Pulse Resp BP BP Pulse Ox 04/25/23 07:38 98.6 F 83 20 122/76 93 04/25/23 05:57 76 04/25/23 04:24 98.6 F 82 18 111/70 94 04/24/23 23:27 98.2 F 85 16 105/57 L 92 04/24/23 22:23 04/24/23 22:00 80 O2 Del Method 04/25/23 07:38 Room Air 04/25/23 05:57 04/25/23 04:24 Room Air 04/24/23 23:27 Room Air 04/24/23 22:23 Room Air 04/24/23 22:00 PG Care Time/CCT Total # of Minutes Spent Total Time Spent with Patient: Total time spent is greater than 50% in coordination of care (as documented) at patient's floor/unit and/or counseling patient: Coding Level of Care Code 39163 Post Operative Follow-Up Diagnoses Nausea R11.0 Diverticulitis of large intestine with complication K57.32
--- NOTE | 2023-04-25 13:53 | Hospitalist Progress Note ---
Date of Service April 25, 2023 Assessment & Plan (1) Generalized weakness: Plan: Note as per prior provider with some edits as needed. 77-year-old female with past med significant for hyperlipidemia, asthma mild persistent, chronic sinusitis, history of CAD, patent foramen ovale, atrial septal aneurysm, GERD, diverticulitis of sigmoid colon, osteoporosis, aspirin contraindicated, presents with nausea and weakness and not feeling well. Patient had prolonged antibiotic course for diverticular abscess. She was admitted initially on February 10 at [facility] for diverticular abscess treated with Vanco cefepime and metronidazole and she was discharged on cefdinir and metronidazole. She followed with PCP for abdominal pain March 03. CT scan showed diffuse diverticulitis with abscess abscess measuring 3.2 x 2.0 x 3.4 cm. Patient was admitted to [facility]. CT scan also showed some nonspecific GALLBLADDER wall thickening. She had cholecystectomy on 03/08. 03/12/23 had worsening nausea and abdominal pain and repeat his CAT scan showed increasing diverticular abscess to 2.6 x 4.7 cm. General surgery consulted and advised for transfer to [facility] for IR drainage. At [facility] IR drainage was deemed unsuitable due to its intramural location. ID was consulted. ID recommended IV Invanz. Had PICC line and was discharged. ID recommended Invanz for 21 days. Again she was admitted [facility] on 03/22/23 for weakness and abdominal pain. ID was consulted and Invanz was changed to Cipro and Flagyl due to nausea. As Patient having persistent nausea and poor appetite on March 28 GI was consulted. Repeat CT scan showed increased size of abscess. GI recommended advanced endoscopist for possible drainage. And she was transferred to [facility] on March 29. At [facility] antibiotics were changed Zosyn after testing for allergy. GI attempted lower endoscopy / endoscopic ultrasound and flexible sigmoidoscopy on 04/01/23 but was not completed due to severe diverticulosis in the sigmoid colon with narrowing of colon and spasm. IR attempted percutaneous drainage but this was aborted as a repeat CT demonstrated no abscess to drain. It was thought that abscess may have self drained after manipulation by GI. Zosyn was switched to p.o. Cipro and Augmentin and was stable to discharge 2022 for total of 9 more days of p.o. antibiotics. Presented to [facility] again with generalized weakness, nausea and poor appetite Recurrent Diverticular abscess Possible colovaginal abscess S/P Exploratory Laparoscopy with laparoscopic Colectomy on April 14, 2023 Multiple hospitalizations in the last 2-month due to diverticular abscess as listed above Status post Augmentin and Cipro (Completed on April 11, 2023) --Repeat CT abdomen and pelvis done during the hospitalization; wall thickening of sigmoid colon with surrounding inflammation. Multiloculated intramural abscess in sigmoid colon as well. Underwent colonoscopy by surgery on April 12urulent discharge from vagina during colonoscopy manipulation. Suspect potential fistula to the vagina. --Culture from the colonoscopy shows Yumiko albicans/dublinensis --Completed 4 days of antifungal given her culture results from colonoscopy. She also finished 4 days of IV antibiotic postoperatively. Antibiotic discontinued as per recommendation by ID Pain control PATRICIA removed on 04/20/2023 Appreciate surgery input Continue low fiber diet Monitor ostomy output Needs follow-up with surgery upon discharge Continue PT/OT Appetite slowly improving Encouraged to increase oral intake Plan to discharge home today Needs follow-up with surgery on discharge Hypokalemia Hypocalcemia Hypophosphatemia Hypomagnesemia Replace electrolytes as needed Abnormal EKG Nonspecific ST-T wave changes Denies cardiac symptoms H/O CAD Continue statin, beta-elisabeth GERD Continue Protonix Hyperlipidemia Continue statin H/O Asthma Continue Home inhalers On montelukast Right kidney lesion On the CAT scan previous admission Needs follow-up as outpatient DVT Px: Lovenox SQ Disposition Home with home health Admission and Anticipated Discharge Date Admission Date: April 06, 2023 Subjective Patient is seen and examined at bedside Had PT evaluation earlier today Discussed with surgery today States feeling tired Appetite still poor Denies any chest pain, dyspnea, dizziness, abdominal pain No other complaints Review of Systems Review of Systems: All systems reviewed & are unremarkable except as noted in Subjective Physical Exam Physical Exam: Physical Exam: Vitals signs as noted above General Appearance:Moderately built and nourished, no apparent distress Head: normocephalic, Atraumatic Eyes: normal inspection, EOMI Neck: supple, Trachea midline Respiratory/Chest: Decreased breath sounds, CTA, No accessory muscle use Cardiovascular: S1, S2, No murmur Abdomen/GI:Soft, Non tender, Bowel sounds present, +Colostomy Extremities/Musculoskeletal:normal inspection, no edema Neurologic/Psych:AAOX3, grossly no focal neurological deficits Skin: normal color, warm Results & Data Results & Data Vital Signs (Past 12 Hours) Vital Signs Temp Pulse Pulse Resp BP BP Pulse Ox 04/25/23 12:14 93 04/25/23 11:15 36.7 C 85 20 121/76 91 04/25/23 07:38 37.0 C 83 20 122/76 93 04/25/23 05:57 76 04/25/23 04:24 37.0 C 82 18 111/70 94 O2 Del Method O2 Flow Rate 04/25/23 12:14 0 04/25/23 11:15 Room Air 04/25/23 07:38 Room Air 04/25/23 05:57 04/25/23 04:24 Room Air Laboratory Results Short CBC 04/25/23 Range/Units 04:54 WBC 4.96 (4.8-10.8) K/ul Hgb 8.1 L (12.0-16.0) g/dl Hct 25.8 L (37.0-47.0) % Plt Count 410 H (130-400) K/uL BMP 04/25/23 04:54 Sodium 138 Potassium 3.8 Chloride 108 H Carbon Dioxide 23 BUN 9 Creatinine 0.43 L Glucose 92 Calcium 8.4 L
--- NOTE | 2023-04-25 14:17 | XRay Report ---
XR chest 1V portable CLINICAL HISTORY: Dyspnea on exertion. COMPARISON STUDY: Chest radiograph April 05, 2023. FINDINGS: No pneumothorax or pleural effusion is present. Linear bibasilar opacities favor atelectasi s or scarring. There is no consolidation to suggest pneumonia. Cardiomediastinal silhouette is stable . There is no evidence for pulmonary edema. IMPRESSION: No acute cardiopulmonary findings. No change in appearance of the chest. ACT 112: Negative or not required by law. Electronically signed by: Gene Hastings M.D. 04/25/2023 2:15 PM
--- NOTE | 2023-04-25 14:20 | Discharge Summary ---
Date of Service April 25, 2023 Admission HPI Per Admitting Provider 77-year-old female with past med significant for hyperlipidemia, asthma mild persistent, chronic sinusitis, history of CAD, patent foramen ovale, atrial septal aneurysm, GERD, diverticulitis of sigmoid colon, osteoporosis, aspirin contraindicated, presents with nausea and weakness and not feeling well. Patient had prolonged antibiotic course for diverticular abscess. She was admitted initially on February 10 at [facility] for diverticular abscess treated with Vanco cefepime and metronidazole and she was discharged on cefdinir and metronidazole. She followed with PCP for abdominal pain March 03. CT scan showed diffuse diverticulitis with abscess measuring 3.2 x 2.0 x 3.4 cm. Patient was admitted to [facility]. CT scan also showed some nonspecific GALLBLADDER wall thickening. She had cholecystectomy on 03/08. 03/12/23 had worsening nausea and abdominal pain and repeat CAT scan showed increasing diverticular abscess to 2.6 x 4.7 cm. General surgery consulted and advised for transfer to [place] for IR drainage. At [place] IR drainage was deemed unsuitable due to its intramural location. ID was consulted. ID recommended IV Invanz. Had PICC line and was discharged. ID recommended Invanz for 21 days. Again she was admitted [facility] on 03/22/23 for weakness and abdominal pain. ID was consulted and Invanz was changed to Cipro and Flagyl due to nausea. As Patient having persistent nausea and poor appetite on March 28 GI was consulted. Repeat CT scan showed increased size of abscess. GI recommended advanced endoscopist for possible drainage. And she was transferred to [place] on March 29. At [place] antibiotics were changed Zosyn after testing for allergy. GI attempted lower endoscopy / endoscopic ultrasound and flexible sigmoidoscopy on 04/01/23 but was not completed due to severe diverticulosis in the sigmoid colon with narrowing of colon and spasm. IR attempted percutaneous drainage but this was aborted as a repeat CT demonstrated no abscess to drain. It was thought that abscess may have self drained after manipulation by GI. Zosyn was switched to p.o. Cipro and Augmentin and was stable to discharge 2022 for total of 9 more days of p.o. antibiotics. Patient currently thinks her abdominal infection is getting better. Yesterday she had episode of diarrhea. But today she did not move her bowels. Was feeling nauseous poor appetite. Having weakness.. Not feeling well. Denies any fevers. No chest pain or shortness of breath. No cough. No runny nose or sore throat. No headache. Hemodynamically stable. Past medical history. As mentioned above Past surgical history. Bronchoscopy. Colonoscopy and EGD with biopsy. Knee arthroscopy. [place] cholecystectomy. Right hip fracture repair. Flexible sigmoidoscopy. Sinus surgery. Social history. . Quit smoking 1977. Smoked 1 pack a day for 13 years. Alcohol rarely. No drug use Family history. Mother had colon cancer. Hypertension. Half sister had multiple sclerosis. Half Brother had COPD. Admission Exam Per Admitting Provider General- Not in distress Head- atraumatic Eyes- PERRL. ENT- oropharynx clear Neck- supple, no JVD. Lungs- clear to auscultation no wheezing or crackles. Heart- regular rhythm; no murmur, no gallop. Abdomen- normal bowel sounds, soft, nontender, no distension. Extremities- no pretibial edema, no erythema seen. Neuro- alert, oriented x 3; PERRL, no facial palsy; no dysarthria; moves extremities. Skin- warm & dry Principal Diagnosis Recurrent Diverticular abscess S/P Exploratory Laparoscopy with laparoscopic Colectomy on April 14, 2023 Hypokalemia Hypomagnesemia Right kidney lesion Discharge Data Allergies Allergy/AdvReac Type Severity Reaction Status Date / Time amoxicillin Allergy Severe Itching Unverified 04/05/23 20:34 aspirin Allergy Mild wheeze Verified 04/05/23 20:34 Consultations 04/05/23 22:42 ED Decision to Admit Stat 04/06/23 08:42 Consult Nephrology Routine 04/07/23 07:41 Consult Gastroenterology Routine 04/07/23 17:20 Consult General Surgery Routine 04/13/23 13:27 Consult Infectious Diseases Routine Procedures Performed Operation Date: 04/14/23 09:45 Actual Procedures p Exploratory Laparoscopy, Laparoscopic Colectomy - Lili Alegre DO Ordered Studies Laboratory Results WBC 4.96 K/ul (4.8-10.8) 04/25/23 04:54 RBC 2.85 M/uL (4.20-5.40) L 04/25/23 04:54 Hgb 8.1 g/dl (12.0-16.0) L 04/25/23 04:54 Hct 25.8 % (37.0-47.0) L 04/25/23 04:54 MCV 90.5 fL (80.0-100.0) 04/25/23 04:54 MCH 28.4 pg (25.0-34.0) 04/25/23 04:54 MCHC 31.4 g/dL (32.0-36.0) L 04/25/23 04:54 RDW Std Deviation 55.1 fL (36.4-46.3) H 04/25/23 04:54 RDW Coeff of Edgard 16.9 % (11.5-14.5) H 04/25/23 04:54 Plt Count 410 K/uL (130-400) H 04/25/23 04:54 MPV 9.6 fL (9.4-12.4) 04/25/23 04:54 Immature Gran % (Auto) 0.4 % 04/20/23 04:44 Neut % (Auto) 61.7 % 04/20/23 04:44 Lymph % (Auto) 28.4 % 04/20/23 04:44 [place] % (Auto) 6.5 % 04/20/23 04:44 Eos % (Auto) 2.6 % 04/20/23 04:44 Baso % (Auto) 0.4 % 04/20/23 04:44 Neut # (Auto) 3.50 K/uL (1.40-6.50) 04/20/23 04:44 Lymph # (Auto) 1.61 K/uL (1.20-3.40) 04/20/23 04:44 [place] # (Auto) 0.37 K/uL (0.11-0.59) 04/20/23 04:44 Eos # (Auto) 0.15 K/uL (0.00-0.50) 04/20/23 04:44 Baso # (Auto) 0.02 K/uL (0.00-0.20) 04/20/23 04:44 Immature Gran # (Auto) 0.02 K/uL (0.01-0.20) 04/20/23 04:44 Absolute Nucleated RBC 0.02 K/uL (0.00-0.12) 04/19/23 06:07 Nucleated RBC % (auto) 0.4 % 04/19/23 06:07 RBC Morphology Unremarkable 04/17/23 06:02 Polychromasia 1+ 04/20/23 04:44 PT 12.3 Seconds (9.0-12.0) H 04/05/23 17:16 INR 1.1 (0.9-1.1) 04/05/23 17:16 Sodium 138 mmol/L (136-145) 04/25/23 04:54 Potassium 3.8 mmol/L (3.5-5.1) 04/25/23 04:54 Chloride 108 mmol/L (98-107) H 04/25/23 04:54 Carbon Dioxide 23 mmol/L (21-32) 04/25/23 04:54 Anion Gap 7 (3-11) 04/25/23 04:54 BUN 9 mg/dl (6-23) 04/25/23 04:54 Creatinine 0.43 mg/dl (0.6-1.2) L 04/25/23 04:54 Est Cr Clr Drug Dosing 96.6 ml/min 04/25/23 04:54 Est GFR ( Amer) 114.5 ml/min 04/25/23 04:54 Est GFR (Non-Af Amer) 98.8 ml/min 04/25/23 04:54 BUN/Creatinine Ratio 20.9 (10-20) H 04/25/23 04:54 Glucose 92 mg/dl (70-99(Fasting)) 04/25/23 04:54 Calcium 8.4 mg/dl (8.6-10.3) L 04/25/23 04:54 Ionized Calcium 0.94 mmol/L (1.12-1.32) L 04/06/23 09:20 Phosphorus 1.6 mg/dl (2.5-4.9) L 04/16/23 06:30 Magnesium 1.9 mg/dl (1.7-2.4) 04/24/23 04:15 Total Bilirubin 0.7 mg/dl (0.2-1.0) 04/10/23 05:12 AST 13 U/L (13-39) 04/10/23 05:12 ALT 5 U/L (7-52) L 04/10/23 05:12 Alkaline Phosphatase 62 U/L (34-104) 04/10/23 05:12 Troponin I High Sens 8.0 pg/ml (0-14) 04/06/23 06:52 Total Protein 5.5 gm/dl (6.0-8.3) L 04/10/23 05:12 Albumin 2.9 gm/dl (3.4-5.0) L 04/10/23 05:12 Globulin 2.6 gm/dl (2.5-4.0) 04/10/23 05:12 Albumin/Globulin Ratio 1.1 (0.9-2) 04/10/23 05:12 25-OH Vitamin D Total 55.7 ng/ml (30-100) 04/07/23 05:31 PTH Intact 259.9 pg/ml (12.0-88.0) H 04/07/23 05:31 Urine Color Yellow 04/06/23 16:05 Urine Appearance Clear (Clear) 04/06/23 16:05 Urine pH 6.5 (4.5-7.5) 04/06/23 16:05 Ur Specific [place] 1.008 (1.000-1.030) 04/06/23 16:05 Urine Protein Negative (Negative) 04/06/23 16:05 Urine Glucose (UA) Negative (Negative) 04/06/23 16:05 Urine Ketones Negative (Negative) 04/06/23 16:05 Urine Blood Negative (Negative) 04/06/23 16:05 Urine Nitrite Negative (Negative) 04/06/23 16:05 Urine Bilirubin Negative (Negative) 04/06/23 16:05 Urine Urobilinogen Negative (Negative) 04/06/23 16:05 Ur Leukocyte Esterase 2+ (Negative) H 04/06/23 16:05 Urine WBC (Auto) >30 /hpf (0-5) H 04/06/23 16:05 Urine RBC (Auto) 0-4 /hpf (0-4) 04/06/23 16:05 U Hyaline Cast (Auto) 1-5 /lpf (0-5) 04/06/23 16:05 U Epithel Cells (Auto) 10-20 /lpf (0-5) H 04/06/23 16:05 Urine Bacteria (Auto) Negative (Negative) 04/06/23 16:05 Urine Yeast Present (None Prsent) A 04/06/23 16:05 Stl C. cayetanensis PCR Not Detected (NotDetected) 04/08/23 04:13 Stool Rotavirus A PCR Not Detected (NotDetected) 04/08/23 04:13 Stl Adenov F 40/41 PCR Not Detected (NotDetected) 04/08/23 04:13 Stool Astrovirus (PCR) Not Detected (NotDetected) 04/08/23 04:13 Stool Campylobacter PCR Not Detected (NotDetected) 04/08/23 04:13 Stl C. diff Tox B Gene Negative Cdiff Gene (Neg) 04/08/23 04:13 Stool Cryptosporidium PCR Not Detected (NotDetected) 04/08/23 04:13 Stl E.coli Shiga Tox PCR Not Detected (NotDetected) 04/08/23 04:13 Stl Enterotoxigenic E PCR Not Detected (NotDetected) 04/08/23 04:13 Stool EPEC (PCR) Not Detected (NotDetected) 04/08/23 04:13 Stool EAEC (PCR) Not Detected (NotDetected) 04/08/23 04:13 Stl E. histolytica PCR Not Detected (NotDetected) 04/08/23 04:13 Stool Giardia Lamblia PCR Not Detected (NotDetected) 04/08/23 04:13 Stool Salmonella PCR Not Detected (NotDetected) 04/08/23 04:13 Stool Sapovirus (PCR) Not Detected (NotDetected) 04/08/23 04:13 Stl P. shigelloides PCR Not Detected (NotDetected) 04/08/23 04:13 Stl Shigella/EIEC PCR Not Detected (NotDetected) 04/08/23 04:13 St Y.enterocolitica PCR Not Detected (NotDetected) 04/08/23 04:13 Stool Vibrio (PCR) Not Detected (NotDetected) 04/08/23 04:13 Stl Vibrio cholerae PCR Not Detected (NotDetected) 04/08/23 04:13 Stl Norovirus GI/GII PCR Not Detected (NotDetected) 04/08/23 04:13 Adenovirus (PCR) Not Detected (NotDetected) 04/05/23 20:33 B. pertussis DNA (PCR) Not Detected (NotDetected) 04/05/23 20:33 B.parapertussis DNA PCR Not Detected (NotDetected) 04/05/23 20:33 C. pneumoniae DNA (PCR) Not Detected (NotDetected) 04/05/23 20:33 Coronavirus OC43 (PCR) Not Detected (NotDetected) 04/05/23 20:33 Coronavirus HKU1 (PCR) Not Detected (NotDetected) 04/05/23 20:33 Coronavirus 229E (PCR) Not Detected (NotDetected) 04/05/23 20:33 SARS-CoV-2 (PCR) Not Detected (NotDetected) 04/05/23 20:33 Coronavirus NL63 (PCR) Not Detected (NotDetected) 04/05/23 20:33 Human Metapneumovir PCR Not Detected (NotDetected) 04/05/23 20:33 Influenza Type A (PCR) Not Detected (NotDetected) 04/05/23 20:33 Influenza Type B (PCR) Not Detected (NotDetected) 04/05/23 20:33 M. pneumoniae (PCR) Not Detected (NotDetected) 04/05/23 20:33 Parainfluenza 1 (PCR) Not Detected (NotDetected) 04/05/23 20:33 Parainfluenza 2 (PCR) Not Detected (NotDetected) 04/05/23 20:33 Parainfluenza 3 (PCR) Not Detected (NotDetected) 04/05/23 20:33 Parainfluenza 4 (PCR) Not Detected (NotDetected) 04/05/23 20:33 RSV (PCR) Not Detected (NotDetected) 04/05/23 20:33 Entero/Rhino (PCR) Not Detected (NotDetected) 04/05/23 20:33 Misc Micro Test See Scanned Report 04/06/23 16:05 Blood Type O Positive 04/14/23 04:21 Antibody Screen NEGATIVE 04/14/23 04:21 Impressions KUB X-Ray 04/06/23 08:00 KUB CLINICAL HISTORY: Nausea. COMPARISON STUDY: CT of the abdomen and pelvis March 28, 2023. FINDINGS: Linear bibasilar densities favor atelectasis or scarring. There are cholecystectomy clips and a right femoral internal fixation. The bowel gas pat tern is normal. There is minimal stool. No urinary calculi are identified. IMPRESSION: No evidence for a bowel obstruction. ACT 112: Negative or not required by law. Electronically signed by: Gene Hastings M.D. 04/06/2023 9:42 AM Abdomen/Pelvis CT 04/06/23 11:09 CT SCAN OF THE ABDOMEN AND PELVIS WITHOUT IV CONTRAST CLINICAL HISTORY: Follow-up diverticular abscess. COMPARISON STUDY: Multiple recent prior abdominal CT scans, most recently dated 03/28/2023. TECHNIQUE: Unenhanced CT scan of the abdomen and pelvis is performed from the lung bases to the proximal femora. Images are reviewed in the axial, sagittal, and coronal planes. IV contrast was not administered as per the referring clinician. Note that the examination was performed in significantly suboptimal fashion without oral and IV contrast. A dose lowering technique was utilized adhering to the principles of ALARA. CT DOSE: 721.51 mGy.cm FINDINGS: Lung bases: The heart is top normal in size and without pericardial effusion. The coronary arteries are denser calcified. There are trace pleural effusions with dependent atelectasis. No airspace consolidation is seen typical for pneumonia. A small hiatal hernia is noted. Liver: The unenhanced liver is normal in size, contour, and attenuation. Fatty infiltration is seen along the falciform ligament. There is no intrahepatic biliary ductal dilatation. Gallbladder: Surgically absent noting clips in the gallbladder fossa. Spleen: Normal in size and attenuation. Pancreas: The unenhanced pancreas is grossly unremarkable. Adrenal glands: Unremarkable. Kidneys: The unenhanced kidneys are normal in size and without hydronephrosis. No renal calculi are identified. Simple and complex bilateral renal cysts measure up to 3.4 cm Abdominal vasculature: The abdominal aorta is normal in course and caliber noting moderate atherosclerotic calcification. Bowel: There is moderate colonic diverticulosis. There is persistent wall thickening of the sigmoid colon with surrounding inflammation at site of previously characterized diverticulitis and abscess. A multiloculated intramural abscess is again suggested involving the rectosigmoid. This is difficult to delineate without IV contrast. The loculation along the left aspect of the sigmoid on image #270 measures at least 2.4 x 2.0 cm, and a loculation along the anterior aspect the rectosigmoid on image #285 measures at least 4.2 x 1.8 cm. These likely communicate. No bowel obstruction is seen. The appendix is well- visualized and normal. Peritoneum: There is no intraperitoneal free air or abdominal ascites. There is a small fat-containing abdominal hernia. Lymphadenopathy: None. Pelvic viscera: The bladder is distended but otherwise normal as imaged. The uterus and adnexa are normal as visualized. Skeletal structures: The skeletal structures are osteopenic. A mild compression deformity of L4 is unchanged. Mild to moderate lumbosacral spondylosis is observed. No lytic or blastic lesions are seen. There is chronic deformity and postsurgical change seen in the right proximal femur. There is also chronic deformity right posterior acetabular roof. IMPRESSION: 1. Significantly suboptimal examination without oral and IV contrast. 2. Wall thickening of the sigmoid colon with surrounding inflammation at the site of previously characterized diverticulitis is similar to the 03/28/2023 examination. 3. A multiloculated intramural abscess is again seen involving the sigmoid colon. This is difficult to characterize/delineate without IV contrast, but appears modestly decreased in size from 03/28/2023. See above. 4. No intraperitoneal free air is seen. 5. Trace pleural effusions. 6. Additional findings as above. ACT 112: Negative or not required by law. Electronically signed by: Juan Miguel Rodriguez M.D. 04/06/2023 2:03 PM Chest X-Ray 04/25/23 13:12 XR chest 1V portable CLINICAL HISTORY: Dyspnea on exertion. COMPARISON STUDY: Chest radiograph April 05, 2023. FINDINGS: No pneumothorax or pleural effusion is present. Linear bibasilar opacities favor atelectasis or scarring. There is no consolidation to suggest pneumonia. Cardiomediastinal silhouette is stable. There is no evidence for pulmonary edema. IMPRESSION: No acute cardiopulmonary findings. No change in appearance of the chest. ACT 112: Negative or not required by law. Electronically signed by: Gene Hastings M.D. 04/25/2023 2:15 PM Hospital Course (1) Generalized weakness: Note as per prior provider with some edits as needed. 77-year-old female with past med significant for hyperlipidemia, asthma mild persistent, chronic sinusitis, history of CAD, patent foramen ovale, atrial septal aneurysm, GERD, diverticulitis of sigmoid colon, osteoporosis, aspirin contraindicated, presents with nausea and weakness and not feeling well. Patient had prolonged antibiotic course for diverticular abscess. She was admitted initially on February 10 at [facility] for diverticular abscess treated with Vanco cefepime and metronidazole and she was discharged on cefdinir and metronidazole. She followed with PCP for abdominal pain March 03. CT scan showed diffuse diverticulitis with abscess abscess measuring 3.2 x 2.0 x 3.4 cm. Patient was admitted to [facility]. CT scan also showed some nonspecific GALLBLADDER wall thickening. She had cholecystectomy on 03/08. 03/12/23 had worsening nausea and abdominal pain and repeat his CAT scan showed increasing diverticular abscess to 2.6 x 4.7 cm. General surgery consulted and advised for transfer to [place] for IR drainage. At [place] IR drainage was deemed unsuitable due to its intramural location. ID was consulted. ID recommended IV Invanz. Had PICC line and was discharged. ID recommended Invanz for 21 days. Again she was admitted [facility] on 03/22/23 for weakness and abdominal pain. ID was consulted and Invanz was changed to Cipro and Flagyl due to nausea. As Patient having persistent nausea and poor appetite on March 28 GI was consulted. Repeat CT scan showed increased size of abscess. GI recommended advanced endoscopist for possible drainage. And she was transferred to [place] on March 29. At [place] antibiotics were changed Zosyn after testing for allergy. GI attempted lower endoscopy / endoscopic ultrasound and flexible sigmoidoscopy on 04/01/23 but was not completed due to severe diverticulosis in the sigmoid colon with narrowing of colon and spasm. IR attempted percutaneous drainage but this was aborted as a repeat CT demonstrated no abscess to drain. It was thought that abscess may have self drained after manipulation by GI. Zosyn was switched to p.o. Cipro and Augmentin and was stable to discharge 2022 for total of 9 more days of p.o. antibiotics. Presented to [facility] again with generalized weakness, nausea and poor appetite Recurrent Diverticular abscess Possible colovaginal abscess S/P Exploratory Laparoscopy with laparoscopic Colectomy on April 14, 2023 Multiple hospitalizations in the last 2-month due to diverticular abscess as listed above Status post Augmentin and Cipro (Completed on April 11, 2023) --Repeat CT abdomen and pelvis done during the hospitalization; wall thickening of sigmoid colon with surrounding inflammation. Multiloculated intramural abscess in sigmoid colon as well. Underwent colonoscopy by surgery on April 12urulent discharge from vagina during colonoscopy manipulation. Suspect potential fistula to the vagina. --Culture from the colonoscopy shows Yumiko albicans/dublinensis --Completed 4 days of antifungal given her culture results from colonoscopy. She also finished 4 days of IV antibiotic postoperatively. Antibiotic discontinued as per recommendation by ID Pain control PATRICIA removed on 04/20/2023 Appreciate surgery input Continue low fiber diet Monitor ostomy output Needs follow-up with surgery upon discharge Continue PT/OT Appetite slowly improving Encouraged to increase oral intake Plan to discharge home today Needs follow-up with surgery on discharge Hypokalemia Hypocalcemia Hypophosphatemia Hypomagnesemia Replace electrolytes as needed Abnormal EKG Nonspecific ST-T wave changes Denies cardiac symptoms H/O CAD Continue statin, beta-elisabeth GERD Continue Protonix Hyperlipidemia Continue statin H/O Asthma Continue Home inhalers On montelukast Right kidney lesion On the CAT scan previous admission Needs follow-up as outpatient DVT Px: Lovenox SQ Disposition Home with home health Total Time Total Time Spent Total Time Spent (In Minutes): 66 minutes Discharge Plan Discharge Items Patient Disposition: Home - Home Health Services Reason For Visit: NAUSEA, WEAKNESS Discharge Diagnosis: Recurrent Diverticular abscess S/P Exploratory Laparoscopy with laparoscopic Colectomy on April 14, 2023 Hypokalemia Hypomagnesemia Right kidney lesion Activity: As commented below Lifting: No more than 10 pounds Driving/Machine Use: no driving until cleared by surgeon Non-emergency contact: Primary Care Provider and Surgeon Call non-emergency contact if: you have any medication questions, your symptoms worsen, your pain is worsening, your temperature is above 101, your wound has increased redness, your wound has increased drainage and your wound pain has increased Follow-up/Referrals: Manoj Weber DO [Primary Care Provider] - Lili Alegre DO [Physician] - (call office for a follow up the First week in May ) Diet: Low Fiber Addtl Attending Provider Instructions: Please to continue eating potassium enriched foods that coincides with a low fiber diet Continue on a low fiber diet for 2 more weeks Eat foods rich in proteins Call the general surgical office for a follow up with Dr. Alegre the first week in May Addjudith Lute Packer Or Applier Provider Instructions: Follow-up with your primary care physician Dr. Weber in 1 week Follow-up with your surgeon Dr. Alegre in 2 to 3 weeks as advised --- You are incidentally found to have a right kidney lesion. Follow-up with your primary care physician /urologist for further investigations and management. --- Get blood test (basic metabolic panel, magnesium levels) in 1 week and follow-up with your physician with results. Seek immediate medical attention if your symptoms reoccur or worsen Please take all medications as instructed on discharge list below. Please call if you have any questions or problems. You can reach a [facility] hospitalist on duty at [facility] 24 hours a day by calling [phone] Pending Studies at Discharge: No Stand-Alone Forms: My [facility] [email or web address] Smoking Cessation Medications and DC Order Prescriptions: New Mag 64 64 mg Tablet,Delayed Release (Dr/Ec) 64 mg PO BID Qty: 60 0RF potassium chloride 20 mEq Tablet,Er Particles/Crystals 20 meq PO DAILY Qty: 15 0RF Continued multivitamin Tablet 1 tab PO DAILY Qty: 0 omega 5-xwd-min-fish oil [Fish Oil] 1,000 mg (120 mg-180 mg) Capsule 1 cap PO DAILY Qty: 0 metoprolol succinate 25 mg tablet extended release 24 hr 25 mg PO QAM cholecalciferol (vitamin D3) [Vitamin D3] 1,000 unit Capsule 1,000 unit PO DAILY ascorbic acid (vitamin C) [Vitamin C] 250 mg Tablet,Chewable 250 mg PO QAM fluticasone propionate [Flonase Allergy Relief] 50 mcg/actuation [place],Suspension 1 spray INTRANASAL DAILY PRN (Reason: Allergy Symptoms) glucosamine-chondroitin [Osteo Bi-Flex] 250-200 mg Tablet 1 tab PO QAM rosuvastatin 20 mg tablet 20 mg PO HS Prolia 60 mg/mL syringe 60 mg SUBCUT .[id number] Trelegy Ellipta 200-62.5-25 mcg blister with device 1 inh INHALATION PM Lactobacillus acidophilus 1 billion cell capsule 1,000 mmu cells PO DAILY Qty: 7 0RF pantoprazole 40 mg Tablet,Delayed Release (Dr/Ec) 40 mg PO BID 30 Days Qty: 60 0RF cholecalciferol (vitamin D3) 125 mcg (5,000 unit) Tablet 5,000 unit PO QAM 30 Days Qty: 30 0RF montelukast 10 mg tablet 10 mg PO DAILY Discontinued ciprofloxacin HCl 500 mg tablet 500 mg PO BID Rx Instructions: For 9 days starting 04/03/23. amoxicillin-pot clavulanate 875-125 mg tablet 1 tab PO BID Rx Instructions: For 9 days starting 04/03/23 Discharge Orders: Discharge Order (Routine); Ordered 04/25/23 Ordered By: Ivan Moffett Admission Data Admit Date/Time: 04/06/23 01:40 Attending Provider: Ivan Moffett Admit Provider: Mendez Mcnulty Primary Care Provider: Manoj Weber Other Providers: [facility],Home Healthcare; Lauro Jacobs; Mendez Mcnulty; Chery Smith; Tomas Jensen; Radha Larkin; Jacklyn Keller; Qing Yin; Jaci Morgan; Rusty Krueger; Judd Adams; Vic Madison; Lisa Perez; Jericho Peralta; Lawrence Burk; Nafisa Nelson; Cordelia Merchant; Radha Malone; Lisa Ramos; Kurtis Balderas; Sanjay Edwards; Juan C Christianson; Gaby Grey; Sindy Alfaro Jr; Tejas Givens; Neo Wright; Cain Clarke; Richie Sharma I.; Rafiq Canseco II; Renetta Aceves; Lasha Alva; Baudilio Oates; Christal Jarvis; Ramon Garcia [facility]; [facility]
== END 2023-04-25 16:01 | disposition home health service (06) | DRG 330 ==
LOC: ED 15:48 → SUATTDRO 04-06 01:40 → EDINP 04-06 01:40 → 2W 04-06 04:14

== ENCOUNTER 2024-01-16 07:33 | Inpatient (IN) ==
--- NOTE | 2024-01-06 11:15 | Anesthesiology Consultation ---
Date of Service January 06, 2024 Assessment & Plan (1) Encounter for pre-operative examination: - Case discussed in detail with Dr. Johnson who advised seeing if S cardiology can see patient prior to surgery for optimization and if not, to send optimization form to PCP to see if provider feels patient needs postponed to see cardiology given cardiac history of ASA, PFO and CAD with remote cardiac catheterization. - Per fur storage clerk on 01/06/24: No known infectious disease contacts, current infectious disease symptoms in past 10 days or COVID positive test result in the past 30 days. Chart Review Chart Review: Pending: Refer to Additional Notes / Consult section and Patient NOT seen in Pre Admission Testing History Surgery Operation Date: 01/16/24 09:10 Proposed Procedures p Robotic Laparoscopic Vicente's Reversal, Possible Open - Lili Foss DO Height/Weight Height: 5 ft 2 in Weight: 59.421 kg Allergies Allergy/AdvReac Type Severity Reaction Status Date / Time salicylates Allergy Severe shortness Verified 01/06/24 09:33 of breath aspirin Allergy Mild wheeze Verified 01/06/24 09:33 Medications Home Medications Medication Instructions Recorded Confirmed Last Taken multivitamin 1 tab PO QAM ##0 11/12/10 01/06/24 10/16/23 08:00 cholecalciferol (vitamin D3) 25 1,000 unit PO QPM 01/25/19 01/06/24 10/15/23 21:00 mcg (1,000 unit) capsule (Vitamin D3) metoprolol succinate 25 mg 25 mg PO QAM 01/25/19 01/06/24 10/17/23 04:30 tablet,extended release 24 hr fluticasone propionate 50 1 spray intranasal DAILY PRN 06/01/19 01/06/24 02/10/23 mcg/actuation nasal Allergy Symptoms spray,suspension (Flonase Allergy Relief) denosumab 60 mg/mL subcutaneous 60 mg subcut .[id number] 02/10/23 01/06/24 3 Months Ago syringe (Prolia) ~11/10/22 rosuvastatin 20 mg tablet 20 mg PO HS 02/10/23 01/06/24 10/15/23 21:00 montelukast 10 mg tablet 10 mg PO QPM 04/06/23 01/06/24 10/15/23 21:00 magnesium chloride 64 mg 64 mg PO BID #60 tabs 04/25/23 01/06/24 10/16/23 08:00 (magnesium chloride) tablet,delayed release (Mag 64) acetaminophen 650 mg 650 mg PO Q12H PRN Pain 09/14/23 01/06/24 10/16/23 22:00 tablet,extended release (Tylenol Arthritis Pain) albuterol sulfate 90 mcg/actuation 2 inh inhalation Q6H PRN sob 09/14/23 01/06/24 Unknown aerosol inhaler calcium 100 mg capsule 100 mg PO QAM 09/14/23 01/06/24 10/15/23 21:00 cranberry 400 mg capsule 400 mg PO QAM 09/14/23 01/06/24 10/16/23 08:00 loratadine 10 mg tablet 10 mg PO QPM 09/14/23 01/06/24 10/16/23 08:00 omeprazole 20 mg tablet,delayed 20 mg PO BID 09/14/23 01/06/24 10/17/23 04:30 release ondansetron 8 mg disintegrating 8 mg PO Q12H PRN Nausea 09/14/23 01/06/24 10/16/23 16:30 tablet potassium chloride 20 mEq 20 meq PO QPM 09/14/23 01/06/24 10/15/23 21:00 tablet,extended release(part/cryst) ascorbic acid (vitamin C) 500 mg 500 mg PO DAILY 01/06/24 01/06/24 Unknown chewable tablet (Vitamin C) Past Medical History Medical History (Updated 01/06/24 @ 11:15 by Anali Pagan PA-C) Asthma quit taking trelegy ellipta due to making cough worse - uses albuterol prn Atrial septal aneurysm CAD (coronary artery disease) moderate nonobstructive per [facility] cardiology 2021 records Colostomy present (~04/2023) placed due to diverticulitis / had partial colectomy COPD (chronic obstructive pulmonary disease) to have PFT's>had this done, waiting on results Flank pain reports chills and left flank pain 09/13/23- encouraged to call PCP resolved GERD (gastroesophageal reflux disease) Hx of chronic sinusitis Hx of diverticulitis of colon Hx of migraines Hyperlipidemia Hypertension Hypomagnesemia Lumbar spondylosis Osteoporosis PFO (patent foramen ovale) Past Family History Family History Other Family history non-contributory Past Surgical History Surgical History H/O esophagogastroduodenoscopy (03/25/23) History of colon resection with colostomy - having a reversal on October 11, 2023 History of open reduction and internal fixation (ORIF) procedure rt hip, 3 pins Hx laparoscopic cholecystectomy (03/08/23) Hx of bilateral cataract extraction Hx of cardiac cath Pt reports, " I think I had one many years ago" reports she did not have stents placed and they told her "it was ok" - No HI. reports completed at [facility] - no record of this. Has not seen S Cardio for > 1 year Hx of colonoscopy 04/2023 and 10/17/23, Dr. Alegre Hx of sinus surgery Hx of tubal ligation Social History Smoking Status: Former smoker Do You Dip or Chew Tobacco: No Smoking End Date: years ago Hx Alcohol Use: Yes Alcohol type: wine alcohol intake frequency: holidays/special occasions only Hx Substance Use: No substance use type: does not use Lab Results Anesthesia Preop Results Results Anesthesia Widget: WBC 5.75 K/ul (4.8-10.8) 01/05/24 Hgb 12.1 g/dl (12.0-16.0) 01/05/24 Hct 36.5 % (37.0-47.0) L 01/05/24 Plt 287 K/uL (130-400) 01/05/24 Na 138 mmol/L (136-145) 01/05/24 K 3.7 mmol/L (3.5-5.1) 01/05/24 Cl 103 mmol/L (98-107) 01/05/24 CO2 27 mmol/L (21-32) 01/05/24 BUN 16 mg/dl (6-23) 01/05/24 Creat 0.53 mg/dl (0.6-1.2) L 01/05/24 Glucose Level 127 mg/dl (70-99(Fasting)) H 01/05/24 Testing Electrocardiogram Date: 01/05/24 Sinus rhythm with sinus arrhythmia with occasional PVCs, rate [address] and T wave abnormality Chest X-Ray Date: 04/29/23 Similar left basilar subsegmental atelectasis or scarring. Otherwise no focal consolidation. Stress Test Date: 02/02/19 MPHR 96% METS 5.9 Negative for inducible ischemia EF 55-60% Grade I diastolic dysfunction No significant valvular pathology Other Testing Abdomen pelvis CT 09/26/23 No renal calculi are identified and there is no hydronephrosis. Bilateral renal cortical hypodense lesions of varying size. These are incompletely characterized without IV contrast. The largest of these probably represent cysts. In addition, there are smaller cortical lesions which are increased in attenuation and probably represent cysts containing hemorrhage. Scattered nodular, hazy and patchy infiltrates in the lung bases, greater on the left. This is concerning for pneumonia
--- OUTSIDE RECORDS SUMMARY | 2024-01-16 07:38 | External Medical Summary | Summary of Care ---
Author Name Unknown Organization [facility] Address [address] [facility] [place] [address] Phone [phone] Care Team Providers Care Grain Elevator Agent Name Role Phone Manoj Weber DO Primary Care Provider [phone] Reason for Visit * Reason Comments Pre-op Clearance Encounter Details Date Type Department Care Team (Late st Contact Info) Description 01/11/2024 2:30 PM EDT Office Visit Cardiology, [facility] [address] [facility] [place] [address] Mica Baca PA-C [address] [place] [address] [place] [address] Pre-operative cardiovascular examination*; Coronary artery disease involving [place] coronary artery of [place] heart without angina pectoris; HTN, goal below 130/80; Dyslipidemia, goal LDL below 70 Allergies Active Allergy Reactions Criticality Noted Date Comments Salicylates 03/03/2001 Asthmatic reaction (aspirin; no food allergies) documented as of this encounter (statuses as of 01/11/2024) Medications Medication Sig Dispensed Refills Start Date End Date Status CALCIUM + D 600-200 MG-UNIT PO TABS Take by mouth at bedtime. 0 07/07/2005 Active MULTIVITAMIN PO TABS Take by mouth. 0 07/07/2005 Active OSTEO BI-FLEX ADV TRIPLE ST PO TABS Take by mouth at bedtime. 0 02/02/2007 Active NASAL SALINE 0.65 % NA SOLNIndications:Chron ic sinusitis 2 squirts each nostril morning and night and every 2-4 hrs as needed for nasal dryness or congestion 1 bottle 0 02/02/2007 Active Cholecalciferol (VITAMIN D) 1000 UNIT Capsule Take 1 Capsule by mouth at bedtime. 30 Cap 11 11/28/2014 Active Loratadine 10 MG Oral Capsule Take 1 Capsule by mouth as needed for Allergies. Active Fluticasone Furoate (FLONASE SENSIMIST) 27.5 MCG/SPRAY nasal spray Administer 2 Sprays into nostril daily. 10 g 12 01/15/2019 Active Peak Flow Meter Device Use daily to track asthma symptoms. 1 Each 2 01/20/2021 Active Additional Information Patient not taking.Reported on 09/20/2023 Acetaminophen ER 650 MG Oral Tablet Extended Release Take 2 Tablets by mouth in the morning. Active Albuterol Sulfate (2.5 MG/3ML) 0.083% Inhalation Nebulization Solution (Proventil)Indication s:Mild persistent asthma without complication ONE VIA NEBULIZER EVERY 4 HRS NEEDED FOR COUGH, WHEEZE, SHORTNESS OF BREATH 3 mL 1 06/08/2022 Active Prolia 60 MG/ML Subcutaneous Solution Prefilled Syringe Inject 60 mg under the skin every 6 months. 1 Each 1 01/21/2023 Active Ondansetron 4 MG Oral Tablet Disintegrating (Zofran)Indications:N ausea Place 1 Tablet on tongue every 8 hours as needed for Nausea. 60 Tablet 3 05/20/2023 Active Magnesium Chloride 64 MG Oral Tablet Delayed Release (Mag-64) Take 1 Tablet by mouth in the morning and 1 Tablet before bedtime. 200 Tablet 3 05/31/2023 Active Rosuvastatin Calcium 20 MG Oral Tablet (Crestor)Indications: Dyslipidemia, goal LDL below 70 TAKE ONE TABLET BY MOUTH AT BEDTIME 100 Tablet 3 07/07/2023 5 Active Albuterol Sulfate HFA 108 (90 Base) MCG/ACT Inhalation Aerosol Solution Inhale 2 Puffs by mouth every 6 hours as needed for Shortness of Breath or Wheezing. 18 g 3 08/23/2023 Active guaiFENesin ER 600 MG Oral Tablet Extended Release 12 Hour (Mucinex) Take 1 Tablet by mouth in the morning and 1 Tablet before bedtime. Active Metoprolol Succinate ER 25 MG Oral Tablet Extended Release 24 Hour (toPROL XL)Indications:[place] atherosclerosis of [place] coronary artery,Patent foramen ovale,HTN, goal below 130/80 TAKE ONE TABLET BY MOUTH EVERY MORNING 100 Tablet 2 11/02/2023 5 Active Potassium Chloride ER 10 MEQ Oral Capsule Extended ReleaseIndications:Hy pokalemia Take 2 Capsules by mouth every evening. 180 Capsule 3 11/08/2023 Active Omeprazole 20 MG Oral Capsule Delayed Release (PriLOSEC)Indications :GERD (gastroesophageal reflux disease) TAKE ONE CAPSULE BY MOUTH TWICE A DAY THIRTY MINUTES BEFORE BREAKFAST AND EVENING MEAL 200 Capsule 1 11/21/2023 5 Active Montelukast Sodium 10 MG Oral Tablet (Singulair) Take 1 Tablet by mouth in the morning. 90 Tablet 3 11/28/2023 Active Cranberry 400 MG Oral Capsule 400 mg. 09/14/2023 Active Hospital, Clinic, or Other Facility Administered Medication Ordered Dose Route Frequency Start Date End Date Status Albuterol Sulfate (Proventil) (2.5 MG/3ML) 0.083% inhalation solution 2.5 mgIndications:Severe persistent asthma without complication 2.5 mg NEBULIZER PRN 01/04/2024 Active Albuterol Sulfate (Proventil) (5 MG/ML) 0.5% *conc* inhalation solution 2.5 mgIndications:Severe persistent asthma without complication 2.5 mg NEBULIZER PRN 01/04/2024 Active Albuterol Sulfate (Proventil) (2.5 MG/3ML) 0.083% inhalation solution 2.5 mgIndications:Mild persistent asthma without complication 2.5 mg NEBULIZER PRN 12/05/2023 Active Albuterol Sulfate (Proventil) (5 MG/ML) 0.5% *conc* inhalation solution 2.5 mgIndications:Mild persistent asthma without complication 2.5 mg NEBULIZER PRN 12/05/2023 Active documented as of this encounter (statuses as of 01/11/2024) Active Problems Problem Noted Date Diagnosed Date HTN, goal below 130/80 12/12/2023 Colostomy status 04/29/2023 Status post partial resection of colon 3 Status post cholecystectomy 03/13/2023 Chronic pain of right knee 06/10/2020 Age-related osteoporosis wit hout current pathological fracture 12/06/2019 Atrial septal aneurysm 01/05/2019 Gastroesophageal reflux disease without esophagi tis 02/10/2018 Asthma, mild persistent 06/24/2011 Chronic sinusitis 06/24/2011 History of nasal polyp 06/24/2011 Dyslipidemia, goal LDL below 70 06/10/2011 ASPIRIN, CONTRAINDICATED- WHEEZING 03/10/2011 Atherosclerosis of [place] co ronary artery of [place] heart without angina pectoris 03/10/2011 Overview: Cardiac catheterization 02/12/11 30-40 % proximal LAD stenosis Diagonal 70 % Obtuse marginal 50% Systolic Fctn is normal Patent foramen ovale 01/01/2011 ADVANCE DIRECTIVE INFORMATION 07/07/2005 Overview: No, Advance Directive brochure given to patient at prior appointment. documented as of this encounter (statuses as of 01/11/2024) Resolved Problems Problem Noted Date Diagnosed Date Resolved Date Essential (primary) hypertension 06/06/2023 06/06/2023 Nocturnal hypoxia 04/01/2023 04/03/2023 Colonic diverticular abscess 03/13/2023 04/03/2023 Diverticulitis of sigmoid colon 03/13/2023 12/12/2023 Encounter for examination fo r normal comparison and control in clinical research program 09/04/2018 12/10/2019 Overview: DO NOT DELETE [facility] [place] DETECT Study: Project # [id number], Web Services Architect: Joe Pelletier, PhD. SUMMARY: Goal: Establish test [...] contact study staff at ; after hours Web Services Architect via the [facility] hospital hosiery operator . Please contact study team before resolving/deleting from patients problem list. Study phone number: [phone]. Diagnosis changed due to Research Module. Go to Snapshot for study details. Encounter for examination fo r normal comparison and control in clinical research program 09/04/2018 01/07/2022 Overview: DO NOT DELETE - [facility] Study: Project # [id number], Web Services Architect: Kahlil Augustin, MS, MPH. SUMMARY: Goal: Establish [...] contact study staff at ; after hours Web Services Architect via the [facility] hospital hosiery operator . - Please contact study team before resolving/deleting from patients problem list. Study phone number: [phone]. Diagnosis changed due to Research Module. Go to Snapshot for study details. 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 11/15/2018 Lung collapse 08/13/2011 08/09/2018 Allergic rhinitis 06/24/2011 08/11/2018 GERD (gastroesophageal reflux disease) 06/24/2011 02/10/2018 HTN, goal below 130/80 03/19/201102/21 TIA (transient ischemic attack) 01/01/2011 02/10/2018 intermediate designer current use of ant icoagulant therapy 01/01/2011 [...] as of this encounter (statuses as of 01/11/2024) Immunizations Name Administration Dates Next Due COVID-19 mRNA, LNP-s, No Pre serve, 2-Dose Series (bettermarks) 04/16/2021,07/21/2020,06/23/2020 Pneumococcal Conjugate Vacc, 13 Valent (Prevnar) 12/01/2015 Pneumococcal Polysaccharide PPV23 (Pneumovax) 08/09/2017,07/29/2008 Seasonal Influenza, PF, 6 M & above, IM , (FluLaval or Fluzone) 01/03/2020,02/10/2018,02/02/2017 Seasonal Influenza, Quadriva lent Hd (Fluzone Hd) 03/05/2022,04/27/2021 Seasonal Influenza, Quadriva lent, No Preserve, IM 01/26/2016 Seasonal Influenza, Trivalen t, (IIV3), with Preserv, (Fluzone) 01/29/2015,03/15/2013,05/03/2012,11/06/2010,03/10/2010,02/15/2008,02/03/20 07 01/30/2016 Seasonal Influenza, Trivalen t, Adjuvanted, 65+ YRS, PF, (Fluad) 02/07/2019 TD, Preservative Free 08/11/2018 TDAP, Age 7 and older, IM (Adacel) 01/29/2008 documented as of this encounter Social History Tobacco Use Types Packs/Day Years Used Date Smoking Tobacco: Former Cigarettes 1 13 0 05/09/1964 - 05/09/1977 Passive Smoke Exposure: Past Smokeless Tobacco: Never Tobacco Cessation:Counseling Given: Not Answered Alcohol Use Standard Drinks/Week Comments Yes 0 (1 standard drink = 0.6 oz pur e alcohol) rarely PHQ-2 Answer Date Recorded PHQ Adult Total Score 0 06/06/2023 Hunger Vital Sign Answer Date Recorded Within the past 12 months, y ou worried that your food would run out before you got the money to buy more. Never true 06/06/19 24 Within the past 12 months, t he food you bought just didn't last and you didn't have money to get more. Never true 06/06/2023 Childcare Answer Date Recorded Do you feel overwhelmed with taking care of a child, family member or friend? No 06/06/2023 Does your family need help f inding childcare? (Household - for ages 0-17 years) Not on file 06/06/2023 Clothing Answer Date Recorded Have you been unable to get clothing when it was really needed? No 06/06/2023 Is your family able to get c lothes or diapers when needed? (Household - for ages 0-17 years) Not on file 06/06/2023 Personal Safety Answer Date Recorded Do you feel unsafe or have concerns for your saf ety? No 06/06/2023 Do you have concerns for you r family's safety? (Household - for ages 0-17 years) Not on file 06/06/2023 Utilities Answer Date Recorded Do you have trouble paying y our heating, water, or electric bill? No 06/06/2023 Is your family able to pay t he heat, water, or electric bill? (Household - for ages 0-17 years) Not on file 06/06/2023 Does your family have access to good internet? (Household - for ages 0-17 years) Not on file 06/06/2023 Employment Status Answer Date Recorded Are you unemployed or without regular income? No 06/06/2023 Does the household have a re gular source of income? (Household - for ages 0-17 years) Not on file 06/06/2023 Social Connections Answer Date Recorded How often do you feel lonely or isolated from th ose around you? Never 06/06/2023 Financial Resource Strain Answer Date R ecorded Do you have any trouble payi ng for your medications, or do you think you might in the future? No 06/06/2023 Does your family have troubl e paying for medicine? (Household - for ages 0-17 years) Not on file 06/06/2023 Transportation Needs Answer Date Record ed READ ONLY Do you have troubl e getting a ride to medical visits or work? Never True 06/06/2023 Does your family have a hard time getting a ride to doctors visits? (Household - for ages 0-17 years) Not on file 06/06/2023 Has lack of transportation k ept you from medical appointments, meetings, work, or from getting things needed for daily living? Check all that apply. (Adult - for ages 18 years and over) Not on file 06/06/2023 Do you (or your family) have trouble finding or paying for a ride (transportation)? (Household - for ages 0-17 years) Not on file 06/06/2023 Housing Stability Answer Date Recorded Do you currently live in a s helter or have no steady place to sleep at night? No 06/06/2023 READ ONLY Do you think you a re at risk of becoming homeless? No 06/06/2023 Does your family worry about paying for your home or becoming homeless? (Household - for ages 0-17 years) Not on file 0 06/06/2023 Are you homeless or worried that you might be in the future? (Adult - for ages 18 years and over) Not on file Are you (or your family) erik eless or worried that you might be in the future? (Household - for ages 0-17 years) Not on file Food Insecurity Answer Date Recorded Do you need food for this week? No 06/06/2023 Are you able to get enough f ood for your family? (Household - for ages 0-17 years) Not on file 06/06/2023 Does your family need food t his week? (Household - for ages 0-17 years) Not on file 06/06/2023 Do you always have enough fo od for your family? (Household - for ages 0-17 years) Not on file 06/06/2023 Sex and Gender Information Value Date Recorded Sex Assigned at Female 01/05/2019 2:11 PM EDT Gender Identity Female 01/05/2019 2:11 PM EDT Sexual Orientation Straight 01/05/2019 2: 11 PM EDT Job Start Date Occupation Industry Not on file Not on file Not on file documented as of this encounter Last Filed Vital Signs Vital Sign Reading Time Taken Comments Blood Pressure 134/82 01/11/2024 2:12 PM EDT Pulse 78 01/11/2024 2:12 PM EDT Temperature - - Respiratory Rate - - Oxygen Saturation 97% 01/11/2024 2:12 PM EDT Inhaled Oxygen Concentration - - Weight 59.9 kg (132 lb) 01/11/2024 2:12 PM EDT Height - - Body Mass Index 23.83 12/28/2023 10:41 AM EDT documented in this encounter Functional Status Functional [...] as of this encounter Progress Notes * Mica Baca PA-C - 01/11/2024 2:30 PM EDT 01/11/2024 Cardiology Follow Up Primary Dance Coach: Dr. Renner Past Medical History: Moderate CAD by left heart catheterization 02/2011 Dyslipidemia Small PFO Aspirin intolerance HTN Asthma HPI: Ro Serrano is a 78 year old female who presents for preoperative evaluation. She is scheduled for ostomy reversal at [facility] on 01/16/[address] Chi Foss. Presents today feeling well. No acute cardiac complaints. Denies chest pain, palpitations, shortness of breath, edema, PND, orthopnea, lightheadedness, syncope. Compliant with all medications. Nonsmoker. Walks, does housework, goes up 2 flights of stairs in home with no exertional symptoms. No recent change in activity tolerance. She is not on any antiplatelet or anticoagulant medications. No prior complications with anesthesia. Denies history of DVT, PE, TIA, stroke. REVIEW OF SYSTEMS: See HPI for pertinent positives. All others negative other than those noted in the HPI. CONSTITUTIONAL: No change in weight, No weakness, No fatigue and No fevers, No sweats or chills. PULMONARY: No cough, sputum, or hemoptysis, No wheezing, No shortness of breath and No recent change in breathing. CARDIOVASCULAR: No chest pain, No dyspnea on exertion, No edema, No palpitations and No syncope. GASTROINTESTINAL: No abdominal pain, No change in bowel habits, No significant heartburn, No nausea, No vomiting, No diarrhea, No constipation, No blood in stools or black tarry stools. No dysphagia. HEMATOLOGIC: No abnormal bleeding and No bruising. NEUROLOGICAL: Normal balance, No headaches and No weakness. Review of patient's allergies indicates: Allergen Reactions Salicylates Asthmatic reaction (aspirin; no food allergies) Current Outpatient Medications Medication Sig Dispense Refill CALCIUM + D 600-200 MG-UNIT PO TABS Take by mouth at bedtime. 0 MULTIVITAMIN PO TABS Take by mouth. 0 NASAL SALINE 0.65 % NA SOLN 2 squirts each nostril morning and night and every 2-4 hrs as needed for nasal dryness or congestion 1 bottle 0 Cholecalciferol (VITAMIN D) 1000 UNIT Capsule Take 1 Capsule by mouth at bedtime. 30 Cap 11 Loratadine 10 MG Oral Capsule Take 1 Capsule by mouth as needed for Allergies. Fluticasone Furoate (FLONASE SENSIMIST) 27.5 MCG/SPRAY nasal spray Administer 2 Sprays into nostrildaily. 10 g 12 Acetaminophen ER 650 MG Oral Tablet Extended Release Take 2 Tablets by mouth in the morning. Albuterol Sulfate (2.5 MG/3ML) 0.083% Inhalation Nebulization Solution (Proventil) ONE VIA NEBULIZER EVERY 4 HRS NEEDED FOR COUGH, WHEEZE, SHORTNESS OF BREATH 3 mL 1 Ondansetron 4 MG Oral Tablet Disintegrating (Zofran) Place 1 Tablet on tongue every 8 hours as needed for Nausea. 60 Tablet 3 Magnesium Chloride 64 MG Oral Tablet Delayed Release (Mag-64) Take 1 Tablet by mouth in the morningand 1 Tablet before bedtime. 200 Tablet 3 Rosuvastatin Calcium 20 MG Oral Tablet (Crestor) TAKE ONE TABLET BY MOUTH AT BEDTIME 100 Tablet 3 Albuterol Sulfate HFA 108 (90 Base) MCG/ACT Inhalation Aerosol Solution Inhale 2 Puffs by mouth every 6 hours as needed for Shortness of Breath or Wheezing. 18 g 3 guaiFENesin ER 600 MG Oral Tablet Extended Release 12 Hour (Mucinex) Take 1 Tablet by mouth in the morning and 1 Tablet before bedtime. Metoprolol Succinate ER 25 MG Oral Tablet Extended Release 24 Hour (toPROL XL) TAKE ONE TABLET BY MOUTH EVERY MORNING 100 Tablet 2 Potassium Chloride ER 10 MEQ Oral Capsule Extended Release Take 2 Capsules by mouth every evening. 180 Capsule 3 Omeprazole 20 MG Oral Capsule Delayed Release (PriLOSEC) TAKE ONE CAPSULE BY MOUTH TWICE A DAY THIRTY MINUTES BEFORE BREAKFAST AND EVENING MEAL 200 Capsule 1 Montelukast Sodium 10 MG Oral Tablet (Singulair) Take 1 Tablet by mouth in the morning. 90 Tablet 3 Cranberry 400 MG Oral Capsule 400 mg. OSTEO BI-FLEX ADV TRIPLE ST PO TABS Take by mouth at bedtime. (Patient not taking: Reported on 12/12/2023) 0 Peak Flow Meter Device Use daily to track asthma symptoms. (Patient not taking: Reported on 09/20/2023) 1 Each 2 Prolia 60 MG/ML Subcutaneous Solution Prefilled Syringe Inject 60 mg under the skin every 6 months.1 Each 1 Current Facility-Administered Medications Medication Dose Route Frequency Provider Last Rate Last Admin Albuterol Sulfate (Proventil) (2.5 MG/3ML) 0.083% inhalation solution 2.5 mg 2.5 mg Nebulizer PRN Albuterol Sulfate (Proventil) (5 MG/ML) 0.5% *conc* inhalation solution 2.5 mg 2.5 mg Nebulizer PRN Albuterol Sulfate (Proventil) (2.5 MG/3ML) 0.083% inhalation solution 2.5 mg 2.5 mg Nebulizer PRN 2.5 mg at 12/28/23 1034 Albuterol Sulfate (Proventil) (5 MG/ML) 0.5% *conc* inhalation solution 2.5 mg 2.5 mg Nebulizer PRN Past Medical History: Diagnosis Date Allergic rhinitis 01/02/2003 Anticoagulation management encounter 01/01/2011 ASTHMA, UNSP W/O MENT ST ASTHMAT/ AC EXACERB 04/02/2002 Chronic pharyngitis 2004 Chronic pharyngitis Chronic sinusitis 04/02/2002 Colostomy status ([facility]) 04/29/2023 COPD (chronic obstructive pulmonary disease) ([facility]) Coronary atherosclerosis of [place] coronary artery 03/10/2011 Esophageal reflux 01/02/2003 Osteoporosis 12/23/2005 Primary generalized (osteo)arthritis Sensorineural hearing loss, bilateral 2004 Vertigo 2004 Family History Problem Relation Name Age of Onset Hypertension Mother Genitourinary Disorder Mother Colon cancer Mother Multiple Sclerosis Sister (Half) COPD Brother (Half) Other (MVA) Brother (Half) Social History Socioeconomic History Marital status: Tobacco Use Smoking status: Former Current packs/day: 0.00 Average packs/day: 1 pack/day for 13.0 years (13.0 ttl pk-yrs) Types: Cigarettes Start date: 05/09/1964 Quit date: 05/09/1977 Years since quittin.7 Passive exposure: Past Smokeless tobacco: Never Vaping Use Vaping status: Never Used Substance and Sexual Activity Alcohol use: Yes Comment: rarely Drug use: No Social History Narrative No pets. No mold. Social Determinants of Health Financial Resource Strain: Low Risk (06/06/2023) Financial Resource Strain Do you have any trouble paying for your medications, or do you think you might in the future? (Adult - for ages 18 years and over): No Food Insecurity: No Food Insecurity (06/06/2023) Food Insecurity Do you need food for this week? (Adult - for ages 18 years and over): No Transportation Needs: No Transportation Needs (06/06/2023) Transportation Needs Do you have trouble getting a ride to medical visits or work? (Adult - for ages 18 years and over):Never True Social Connections: Socially Integrated (06/06/2023) Social Connections How often do you feel lonely or isolated from those around you? (Adult - for ages 18 years and over): Never Housing Stability: Low Risk (06/06/2023) Housing Stability Do you currently live in a snf or have no steady place to sleep at night? (Adult - for ages 18 years and over): No Do you think you are at risk of becoming homeless? (Adult - for ages 18 years and over): No OBJECTIVE/PHYSICAL EXAMINATION: BP 134/82 | Pulse 78 | Wt 59.9 kg (132 lb) | LMP 08/09/2003 | SpO2 97% | BMI 23.83 kg/m | BSA 1.62 m General: No acute distress. A+Ox3. HEENT: Normocephalic. Atraumatic. PERRL. EOMI. Conjunctiva and sclera clear. NECK: No carotid bruits. No JVD. Carotid upstrokes are brisk. Heart: RRR. S1 and S2 noted. No murmur. No rubs or gallops. PMI non displaced. Lungs: Clear to auscultation. No wheezes. No rhonchi. No rales. Abdomen: Normal bowel sounds. Soft. Nontender. No masses or organomegaly. No abdominal bruits. Extremities: No edema. No clubbing or cyanosis. Pulses: radial=2/4, posterior tibial=2/4, dorsalis pedis = 2/4. NEURO: No focal deficits. PSYCH: Appropriate affect and insight. DATA Labs & Imaging Reviewed Below: EKG 01/11/24 NSR with sinus arrhythmia, nonspecific ST and T wave abnormality, 79 bpm Exercise Echo 02/02/19 The primary indication after review was deemed appropriate and the examination was performed. The stress echo is negative for inducible ischemia. No arrhythmias. Normal LV chamber size and wall thickness. Normal LV systolic function without regional wall motion abnormality, EF 55-60%. Grade I diastolic dysfunction. No significant valvular pathology. ASSESSMENT/PLAN: 78 year old female 1. Pre-operative cardiovascular examination 2. Coronary artery disease involving [place] coronary artery of [place] heart without angina pectoris 3. HTN, goal below 130/80 4. Dyslipidemia, goal LDL below 70 - feels well from cardiac standpoint, euvolemic on exam - heart rate and blood pressure controlled - cardiac risk factors well controlled including cholesterol - continue metoprolol succinate and rosuvastatin - allergy to aspirin - in terms of cardiac risk for surgery, she is at moderate risk for perioperative procedures, no recent decline in activity tolerance, no anginal symptoms, can complete >4 METS of activity, no further cardiac testing indicated at this time DISPOSITION: Follow up PRN or sooner if symptoms worsen/fail to improve. All questions were answered to the patients satisfaction. Patient advised to report to ED with any and all emergencies. The patient agrees to the above plan and will call with additional questions or concerns. Mica Baca PA-C Cardiology, [address] [place] [address] I spent a total of 35 minutes on the date of service in preparation, delivery, and documentation ofthe care provided to Ro Serrano excluding any time spent in the performance of separately billed services. This chart was completed in part utilizing [employer] Speech Voice Recognition Software. Grammatical errors, random word insertions, pronoun errors, and incomplete sentences are an occasional consequence of this system due to software limitations, ambient noise, and hardware issues. Any formal questions or concerns about the content, text, or information contained within the body of this dictation should be directly addressed to the provider for clarification. documented in this encounter Procedure Notes * Jc Perez DO - 01/11/2024 2:21 PM EDTAssociated Order(s): EKG REASON FOR STUDY: pre op;pre op CONCLUSIONS: Normal sinus rhythm with sinus arrhythmia Nonspecific ST and T wave abnormality Abnormal ECG When compared with ECG of 29-Mar-2023 20:08, Questionable change in The axis Inverted T waves have replaced nonspecific T wave abnormality in Inferior leads T wave inversion no longer evident in Lateral leads QT has shortened Ventricular Rate: 79 Atrial Rate: 79 CT Interval: 122 QRS Duration: 90 QT/QTc: 370/424 ms P-R-T [place]: 72 : 56 : 24 degrees documented in this encounter Nursing Notes * Mariya Barlow CMA - 01/11/2024 2:11 PM EDT Examination Room: 4 Name: Ro Serrano Date of : (1945) Reason for Visit: pre op Interim Hospitalization(s): denied Problems/Concerns: denied Chest Pain/SOB: denied My [facility] is a way you can talk to your provider online through e-mail. Would you like to sign up? I can activate it for you? ALREADY ACTIVE Patient was instructed to not get up on the exam table until directed and assisted by their provider; patient is to remain seated in the chair/ wheelchair/ exam table for fall prevention and safety reasons. Patient is aware to have assistance to step down off exam table with personnel. Patient voiced full comprehension of instructions. documented in this encounter Plan of Treatment Upcoming Encounters Date Type Department Care Team (Late st Contact Info) Description 02/01/2024 2:30 PM EDT Office Visit Rheumatology [address] [place] [address] Devendra Shepherd CRNP [address] [place] [address] [place] [address] 02/06/2024 3:00 PM EDT Telemedicine Virtual Nutrition Services [address] [address] [address] [place] [address] Spring Man RDN [address] [place] [id number] 04/13/2024 2:20 PM EST Office Visit Family Practice [address] [facility] [address] [place] [id number] Manoj Weber DO [address] [place] [address] Health Maintenance Due Date Last Done Comments Zoster Vaccines (1 of 2) 1996 Colonoscopy 06/13/2020 06/13/2015, 09/2015, 05/18/2010, Additional history exists Adult Wellness Visit 05/24/2023 05/24/2022 COVID-19 Vaccine ( season) 2024 04/16/2021, 07/21/2020, 06/23/2020 Influenza Vaccine (FLU shot) (#1) 2024 03/05/2022, 04/27/2021, 01/03/2020, Additional history exists Depression Screening 06/06/2024 06/06/2023 GFR 09/15/2024 09/16/2023, 07/08, 04/29/2023, Additional history exists Albumin/Creatinine Ratio 06/21/2025 06/21/2022, 06/10 DXA Scan 08/23/2025 08/24/2023, 08/07, 04/27/2021, Additional history exists DTap/Tdap Vaccines (3 - Td or Tdap) 08/11/2028 08/11/2018, 01/29/2008 RETIRED - COLONOSCOPY-EVERY 5 YRS AGES 18-100 Discontinued 06/13/2015, 06/13/2015, 05/18/2010, Additional history exists Pneumococcal Vaccine: 65+ Years Completed 08/09/2017, 12/01/2015, 07/29/2008 VITAMIN D LEVEL ONCE IN A LIFETIME-USE SMARTSET# 57731 Completed 07/27/2023, 05/13/2021, 09/01/2012, Additional history exists HPV (Gardasil) Vaccine Aged Out No lo nger eligible based on patient's age to complete this topic Hepatitis B Vaccine Aged Out No longe r eligible based on patient's age to complete this topic MENINGOCOCCAL (MENACTRA/MENVEO) Aged Out No longer eligible based on patient's age to complete this topic documented as of this encounter Medical Devices Not on filedocumented as of this encounter Procedures Procedure Name Priority Date/Time Associated Diagnosis Comments CT ECG ROUTINE ECG W/LEAST 12 LDS W/I&R Routine 01/11/2024 2:21 PM EDT Pre-operative cardiovascular examination documented in this encounter Results * EKG (01/11/2024 2:21 PM EDT) 01/11/2024 2:21 PM EDT Narrative Procedure Note Jc Perez DO - 01/11/2024 2:21 PM EDT REASON FOR STUDY: pre op;pre op CONCLUSIONS: Normal sinus rhythm with sinus arrhythmia Nonspecific ST and T wave abnormality Abnormal ECG When compared with ECG of 29-Mar-2023 20:08, Questionable change in The axis Inverted T waves have replaced nonspecific T wave abnormality in Inferiorleads T wave inversion no longer evident in Lateral leads QT has shortened Ventricular Rate: 79 Atrial Rate: 79 CT Interval: 122 QRS Duration: 90 QT/QTc: 370/424 ms P-R-T [place]: 72 : 56 : 24 degrees Mica Baca PA-C EKG Performing Organization Address City/State/[facility] Co de Phone Number [facility] documented in this encounter Visit Diagnoses Diagnosis Pre-operative cardiovascular examination- Primary Coronary artery disease involving [place] coronary artery of [place] heart without angina pectoris HTN, goal below 130/80 Unspecified essential hypertension Dyslipidemia, goal LDL below 70 Other and unspecified hyperlipidemia documented in this encounter Advance Directives * Full Code (Latest Code Status on File) Date Activated Date Inactivated Comments 03/29/2023 8:17 PM 04/03/2023 6:22 PM This order reflects the patients wishes and were consensually agreed upon. Question Answer Comments Discussion of Advance Directives occurred with: Patient * Full Code Date Activated Date Inactivated Comments 03/13/2023 2:20 AM 03/17/2023 6:39 PM This order r eflects the patients wishes and were consensually agreed upon. 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
[2024-01-16] MEDS ORDERED: fentaNYL citrate PF 100 MCG/2 ML VIAL ONE (08:19)
[2024-01-16] MEDS ORDERED: PROPOFOL IV EMULSION 10 MG/ML 20 ML VIAL IV ONE (08:20)
[2024-01-16] MEDS ORDERED: ROCURONIUM BROMIDE 10 MG/ML 5 ML VIAL IV ONE ×3 (08:20→12:27)
[2024-01-16] MEDS ORDERED: DEXAMETHASONE SOD INJ 4 MG/ML VIAL ONE (08:20)
[2024-01-16] MEDS ORDERED: ONDANSETRON INJ 2 MG/ML 2 ML VIAL ONE ×2 (08:31)
[2024-01-16] MEDS: LACTATED RINGER'S 1,000 ML IV SCH (08:45)
[2024-01-16] MEDS: PREGABALIN 75 MG CAP PO SCH (08:45)
[2024-01-16] MEDS: ACETAMINOPHEN 500 MG TAB PO SCH (08:45)
[2024-01-16] MEDS ORDERED: Nursing to Pharmacy Communication SCH (08:45)
[2024-01-16] MEDS: LR 15ML/HR IV SCH (08:46)
[2024-01-16] MEDS ORDERED: BUPIVACAINE 0.25% PF 30 ML VIAL ONE (08:54)
[2024-01-16] MEDS ORDERED: SODIUM CHLORIDE 0.9% PF INJ 10 ML VIAL ONE (08:55)
[2024-01-16] MEDS ORDERED: ATROPINE SULFATE 0.1 MG/ML 10ML SYR IV PRN (09:01)
[2024-01-16] MEDS ORDERED: fentaNYL citrate PF 100 MCG/2 ML VIAL IV PRN (09:01)
[2024-01-16] MEDS ORDERED: ONDANSETRON INJ 2 MG/ML 2 ML VIAL IV PRN ×2 (09:01→16:11)
[2024-01-16] MEDS ORDERED: ePHEDrine sulfate 50 MG/ML AMP IV PRN (09:01)
--- NOTE | 2024-01-16 09:23 | History & Physical Bridge Note ---
Date of Service January 16, 2024 History & Physical Bridge Note I have examined the patient, reviewed the History & Physical and in the interval since the performance of the History & Physical I have noted the following changes of clinical significance: no changes noted. She does mention difficulty taking Tylenol pills. Ro presents for colostomy reversal. The consent is on the chart.
[2024-01-16] MEDS: ERTAPENEM SODIUM 1,000 MG in SYRINGE 0 ML IV SCH ×2 (10:00→16:22)
[2024-01-16] MEDS ORDERED: HYDROmorphone INJ 2 MG/ML SYR/VIAL ONE (12:47)
[2024-01-16] MEDS: INDOCYANINE GREEN 25 MG VIAL INJ ONE (13:51)
[2024-01-16] MEDS ORDERED: SUGAMMADEX SODIUM 200 MG/2 ML VIAL IV ONE (14:16)
[2024-01-16] MEDS: BUPIVACAINE/EPINEPHRINE 0.5% MPF 1:200,000 30 ML VIAL ONE (14:34)
--- NOTE | 2024-01-16 14:52 | Post Operative Brief Note ---
PG Immediate Post Op with CF Date of Surgery January 16, 2024 Pre & Post Diagnosis Operation Date: 01/16/24 09:10 Pre-Op Diagnosis: Vicente's Procedure for Sigmoid Abscess Post-Op Diagnosis: Vicente's Procedure for Sigmoid Abscess I identified the patient and participated in the time-out.: Yes Procedure Operation Date: 01/16/24 09:10 Actual Procedures p Robotic Assisted Laparoscopic Vicente's Reversal(Not Applicable) - Lili Alegre DO Lysis of adhesions Take down of the splenic flexure Surgeon Lili Alegre DO [place] Professor Sp Pablo NP Estimated Blood Loss 30 Findings Consistent with Post-Op Diagnosis adhesions Specimens Specimen Description: A. colostomy B. rectosigmoid stump C. donuts Drains Echevarria Catheter Anesthesia Type General Complications None
--- NOTE | 2024-01-16 15:00 | Operative Report ---
PG Post Operative Report Pre & Post Diagnosis Operation Date: 01/16/24 09:10 Pre-Op Diagnosis: Vicente's Procedure for Sigmoid Abscess Post-Op Diagnosis: Vicente's Procedure for Sigmoid Abscess I identified the patient and participated in the time-out.: Yes Procedure Operation Date: 01/16/24 09:10 Actual Procedures p Robotic Assisted Laparoscopic Vicente's Reversal(Not Applicable) - Lili Alegre DO Extensive lysis of adhesions Takedown of the splenic flexure Surgeon Lili Alegre DO Manager Transfusion Sp Pablo NP Estimated Blood Loss 30 Findings Consistent with Post-Op Diagnosis Specimens A. Colostomy B. Rectosigmoid colon C. Anastomotic colon Drains None Anesthesia Type General Complications None Indications 78F with history of ongoing complicated diverticulitis with persistent abscess being treated with several rounds of antibiotic therapy which she was no longer tolerating. She went on to have a sigmoidectomy with colostomy creation last fall. Today she presents for colostomy reversal. Description of Procedure The patient was brought back to the operating room placed on the operating room table in supine position. She was connected to cardiac and oxygen monitoring, supplemental O2 was provided and SCDs were applied to bilateral lower extremities. The patient was administered general anesthesia and a secure airway was established. A Echevarria catheter was inserted. The colostomy site was closed using 2-0 silk suture. The rectum was irrigated with a Malecot catheter using Betadine diluted with saline solution. The abdomen was prepped and draped in typical sterile fashion and a timeout was conducted. The colostomy was taken down from the skin using alternating cautery and blunt dissection and its fascial attachments. This adhesions were broken up with a finger sweep around the colostomy site once the colostomy was detached from the fascia. After removing the thickened everted end of the stoma, a purse string suture was applied with Prolene. The Anvil was inserted and the purse string was tightened onto the Anvil. An Dany wound protector with a 5mm port was placed into the colostomy site and the colon was reduced back into the abdomen. CO2 insufflation was initiated to a goal pressure of 15mmHg. Under direct visualization, using a 5mm laparoscope, a 12mm trocar was inserted at the RLQ, 8mm trocar just to the right of the umbilicus, an 8mm trocar beneath the left subcostal margin and a 5mm trocar at the right subcostal margin for an assist port. The OR table was then placed in Trendelenburg and right side down. The robot was deployed and docked, instruments were inserted. At the console, intra-abdominal adhesions of omentum were lysed. The pelvis was inspected and there were significant adhesions involving the rectum to the uterus, fallopian tube and ovary. These adhesions were carefully taken down robotically. The ureter was identified and the presacral tissue was dissected to isolate the mesorectum and the superior rectal artery. The superior rectal artery was taken to allow for better extension and straightening of the rectum. Bleeding throughout the process was controlled using cautery. I proceeded to the patient bed side at the perineum area to insert a small sizer to help delineate the course of the rectum. There was an anatomically fibrosed rectosigmoid area that would not allow for a smooth extension of the full rectal stump. More dissection was then performed to completely isolate the mesorectum so that the rectum just below the area of fibrosed colon could be adequately cleared. Two green loads of a robotic stapler were used to ligate and transect this area from the remainder of the rectum below. This specimen was sent to pathology in a labeled container as rectosigmoid colon. The proximal end of the colon was inspected and extended toward the pelvis. There was a small amount of tension so mobilization of the left colon was undertaken until this tension was resolved. This mobilization was carried to a splenic flexure takedown in order to prepare the colon for a tension free anastomosis. Once this mobilization was satisfactory, ICG was injected and firefly was set on the robotic console. There were no compromises in blood supply to the proximal colon, the blood supply was excellent. The learning support assistant then relocated to the perineal area and dilated the rectum transanally using small, medium and large sizers sizers. An EEA stapler was inserted transanally into the rectum and the spike was deployed just lateral to the staple line of the rectal stump. The anvil in the proximal colon was connected to the spike protruding through the rectal stump and the stapler was closed and fired. The EEA was then removed. Saline was added to the pelvis and air was insufflated into the rectum holding pressure on the colon proximally to test for an air leak. No leak was identified. Excess irrigant was suctioned away. The resected piece of rectosigmoid colon was removed as specimen through the LLQ Dany wound protector site. The donuts from the anastomosis were inspected and sent to pathology in a separate labeled container. The RLQ 12mm trocar was closed under direct visualization using a Jonathan Greenberg closure device. The remaining instruments were removed. The robot was undocked and the trocars were removed. The OR table was returned to the neutral position. The LLQ colostomy site was closed at the level of the muscle and fascia using 0-PDS. The subcutaneous tissue and deep dermis was closed using 3-0 Vicryl. 4-0 Vicryl was used in the subcuticular tissue at all incisions. The abdomen was wiped clean with a saline soaked lap pad and dried. The previous colostomy site was dressed with steri strips, gauze and Medipore tape. All other incisions were closed sealed using Dermabond. Please add a modifier for extensive lysis of adhesions and splenic flexure takedown. I attest to the content of the Intraoperative Record and any orders documented therein. Any exceptions are noted below.
--- NOTE | 2024-01-16 15:30 | Anesthesiology Progress Note ---
Date of Service January 16, 2024 Anesthesia Post Procedure Vital Signs Vital Signs: Temp Pulse Pulse Resp BP BP Pulse Ox 01/16/24 15:20 82 12 150/79 H 99 01/16/24 15:10 87 20 146/75 H 97 01/16/24 15:01 36.2 C L 96 H 18 136/99 91 01/16/24 08:35 01/16/24 08:35 36.6 C 106 H 16 140/86 95 O2 Del Method O2 Flow Rate 01/16/24 15:20 Nasal Cannula 3 01/16/24 15:10 Nasal Cannula 3 01/16/24 15:01 Room Air 01/16/24 08:35 Room Air 01/16/24 08:35 Room Air Transfer of Care Handoff Completed per policy Notes Mental Status: alert / awake / arousable Patient Amnestic to Procedure: Yes Nausea / Vomiting: adequately controlled Pain: adequately controlled Airway Patency, RR, SpO2: stable & adequate BP & HR: stable & adequate Hydration State: stable & adequate Anesthetic Complications: no major complications apparent and Pt Satisfied with anesthetic care
[2024-01-16] MEDS ORDERED: MoRPHine SULFATE 2 MG/ML CARP IV PRN (16:11)
[2024-01-16] MEDS ORDERED: oxyCODONE HCL IR 5 MG TAB (IMMEDIATE RELEASE) PO PRN (16:11)
[2024-01-16] MEDS ORDERED: MoRPHine SULFATE 4 MG/ML 1 ML CARP\\VIAL IV PRN (16:11)
[2024-01-16] MEDS ORDERED: ALBUTEROL HFA 8 GM INHALER INH PRN (16:11)
[2024-01-16] MEDS ORDERED: ACETAMINOPHEN 325 MG TAB PO PRN (16:19)
[2024-01-16] MEDS: BUPIVACAINE LIPOSOME 1.3% 266 MG/20 ML VIAL ONE (16:22)
[2024-01-16] MEDS: COUGH DROP (SUGAR FREE) LOZ 24 LOZ/1 BOX BUCCAL ONE (18:14)
[2024-01-16] MEDS: MAGNESIUM CHLORIDE W/CALCIUM 64MG DELAYED REL TAB PO SCH (20:39)
[2024-01-16] MEDS: MONTELUKAST SODIUM 10 MG TABLET PO SCH (20:39)
[2024-01-16] MEDS: ROSUVASTATIN CALCIUM 20 MG TAB PO SCH (20:39)
[2024-01-16] MEDS: CHOLECALCIFEROL 25 MCG (1000 UNITS) TAB PO SCH (20:39)
[2024-01-16] MEDS: PANTOprazole 40 MG TAB PO SCH (20:39)
[2024-01-16] MEDS: LORATADINE 10 MG TAB PO SCH (20:40)
[2024-01-16] MEDS: POTASSIUM CHLORIDE CRTAB 20 MEQ TABCR PO SCH (20:43)
[2024-01-17] MEDS: FLUTICASONE PROPIONATE NA SPR 16 GM BTL NAE PRN (00:05)
[2024-01-17 07:26] LABS: Basophils # (auto) 0.02 K/uL (0.00-0.20); Basophils % (auto) 0.3 %; Hematocrit (blood only) 31.2 % (37.0-47.0); Hemoglobin 10.2 g/dl (12.0-16.0); Immature Granulocytes # (auto) 0.02 K/uL (0.01-0.20); Immature Granulocytes % (auto) 0.3 %; Lymphocytes # (auto) 1.71 K/uL (1.20-3.40); Lymphocytes % (auto) 23.4 %; Mean Corpuscular Hemoglobin 28.4 pg (25.0-34.0); Mean Corpuscular Hgb Conc 32.7 g/dL (32.0-36.0); Mean Corpuscular Volume 86.9 fL (80.0-100.0); Mean Platelet Volume 10.1 fL (9.4-12.4); Monocytes # (auto) 0.57 K/uL (0.11-0.59); Monocytes % (auto) 7.8 %; Neutrophils # (auto) 4.99 K/uL (1.40-6.50); Neutrophils % (auto) 68.2 %; Platelet Count 246 K/uL (130-400); RDW Coefficient of Variation 13.1 % (11.5-14.5); RDW Standard Deviation 41.5 fL (36.4-46.3); Red Blood Count 3.59 M/uL (4.20-5.40); White Blood Count 7.31 K/ul (4.8-10.8)
[2024-01-17 07:43] LABS: BUN Creatinine Ratio 19.3 (10-20); Calcium 8.4 mg/dl (8.6-10.3); Creatinine Clr Calc Pharmacy 65.4 ml/min; Est GFR (African American) 103.6 ml/min; Est GFR (Non-African American) 89.4 ml/min; Potassium 3.9 mmol/L (3.5-5.1)
[2024-01-17] MEDS: CALCIUM CARBONATE 1250MG TAB PO SCH (10:00)
[2024-01-17] MEDS: ASCORBIC ACID 500 MG TAB PO SCH (10:00)
[2024-01-17] MEDS: METOPROLOL SUCC 25MG EXT REL TAB PO SCH (10:01)
--- NOTE | 2024-01-17 10:01 | Surgery Progress Note ---
<Statement entered by Lili Alegre, - 01/18/24 17:26> I saw and examined Ro in the am. POD 1, tolerating oral intake, no N/V, minimal pain. She feels unsure about going home today. Will work on more ambulation today. Date of Service January 17, 2024 Assessment & Plan (1) History of colostomy reversal: Plan: POD 1 Robotic Assisted Laparoscopic Vicente's Reversal doing well, pain controlled tolerating full liquids VSS , low grade temp 99.5 , WBC wnl h/h 10.2/31.2 states a had some bloody drainage from rectum this AM , to be expected but will monitor Will stop IV fluids and IV pain medication nursing may crush PO oral pain medication and mix with apple sauce encouraged OOB to chair and ambulation Admission and Anticipated Discharge Date Admission Date: January 16, 2024 Subjective pt reports pain is tolerable tolerating full liquids Review of Systems Constitutional: no fever and no chills Respiratory: no dyspnea Cardiovascular: no chest pain Gastrointestinal: + abdominal pain; no nausea and no vomit ing Physical Exam Constitutional: cooperative and comfortable; no acute distress Respiratory: normal respiratory effort; no respiratory distress Cardiovascular: Rate/Rhythm: + tachycardic (95) Gastrointestinal (Abdomen): Inspection/Auscultation: + abdominal surgical incision (left side abd gauze and medipore CDI , port sites dermabond); abdomen not distended Percussion/Palpation: abdomen soft Results & Data Vital Signs (Past 12 Hours) Vital Signs Temp Pulse Resp BP BP Pulse Ox O2 Del Method 01/17/24 07:25 99.5 F 95 H 18 115/65 90 Room Air 01/17/24 03:00 99.3 F 81 16 120/55 L 92 Room Air 01/16/24 23:00 99.7 F H 80 16 126/71 95 Room Air Results CBC w Diff Results: RBC 3.59 M/uL (4.20-5.40) L 01/17/24 WBC 7.31 K/ul (4.8-10.8) 01/17/24 Hgb 10.2 g/dl (12.0-16.0) L 01/17/24 Hct 31.2 % (37.0-47.0) L 01/17/24 MCV 86.9 fL (80.0-100.0) 01/17/24 MCH 28.4 pg (25.0-34.0) 01/17/24 MCHC 32.7 g/dL (32.0-36.0) 01/17/24 RDW Standard Deviation 41.5 fL (36.4-46.3) 01/17/24 RDW Coefficient of Variation 13.1 % (11.5-14.5) 01/17/24 Plt Count 246 K/uL (130-400) 01/17/24 MPV 10.1 fL (9.4-12.4) 01/17/24 Nucleated Red Blood Cells % (auto) 0.4 % 04/19 Nucleated RBC Absolute Count (auto) 0.02 K/uL (0.00-0.12) 1 06/20/22 Neutrophils (%) (Auto) 68.2 % 01/17/24 Lymphocytes (%) (Auto) 23.4 % 01/17/24 Monocytes # (Auto) 0.57 K/uL (0.11-0.59) 01/17/24 Eosinophils # (Auto) 0.00 K/uL (0.00-0.50) 01/17/24 Immature Granulocyte % (Auto) 0.3 % 01/17/24 Neutrophils # (Auto) 4.99 K/uL (1.40-6.50) 01/17/24 Lymphocytes # (Auto) 1.71 K/uL (1.20-3.40) 01/17/24 Monocytes # (Auto) 0.57 K/uL (0.11-0.59) 01/17/24 Eosinophils # (Auto) 0.00 K/uL (0.00-0.50) 01/17/24 Basophils # (Auto) 0.02 K/uL (0.00-0.20) 01/17/24 Immature Granulocyte # (Auto) 0.02 K/uL (0.01-0.20) 4 Red Blood Cell Morphology Unremarkable 04/17/23 Polychromasia 1+ 04/20/23 PG Care Time/CCT Total # of Minutes Spent Total Time Spent with Patient: Total time spent is greater than 50% in coordination of care (as documented) at patient's floor/unit and/or counseling patient: Coding Level of Care Code 79895 Post Operative Follow-Up Diagnoses History of colostomy reversal Z98.890
[2024-01-17] MEDS: oxyCODONE HCL IR 5 MG TAB (IMMEDIATE RELEASE) PO PRN (10:04)
--- NOTE | 2024-01-18 07:51 | Surgery Progress Note ---
<Statement entered by Lili Alegre, DO - 01/18/24 17:32> I have seen and examined Ro this am. Her incisions look good. Abdomen appropriate. Dressing remains over the colostomy site clean and dry. She began passing flatus last night and had a non-bloody BM this am. HD stable. States she is ambulating without dizziness or lightheadedness. Continues to tolerate PO. Advancing to a low fiber diet this am. The patient would like to stay another day to be sure she will be good at home. Date of Service January 18, 2024 Assessment & Plan (1) History of colostomy reversal: Plan: POD 2 Robotic Assisted Laparoscopic Vicente's Reversal doing well, pain controlled tolerating full liquids , will advance to low fiber VSS labs pending Had BM this AM and passing flatus possible d/c later today fu in office [address] Alegre return precautions given Admission and Anticipated Discharge Date Admission Date: January 16, 2024 Subjective pt reports pain is tolerable tolerating full liquids Review of Systems Constitutional: no fever and no chills Respiratory: no dyspnea Cardiovascular: no chest pain Gastrointestinal: + abdominal pain; no nausea and no vomit ing Musculoskeletal: no muscle weakness Physical Exam Constitutional: cooperative and comfortable; no acute distress Respiratory: normal respiratory effort; no respiratory distress Cardiovascular: Rate/Rhythm: + tachycardic (93) Gastrointestinal (Abdomen): Inspection/Auscultation: + abdominal surgical incision (left side abd gauze and medipore CDI , port sites dermabond); abdomen not distended Percussion/Palpation: abdomen soft Results & Data Results CBC w Diff Results: RBC 3.59 M/uL (4.20-5.40) L 01/17/24 WBC 7.31 K/ul (4.8-10.8) 01/17/24 Hgb 10.2 g/dl (12.0-16.0) L 01/17/24 Hct 31.2 % (37.0-47.0) L 01/17/24 MCV 86.9 fL (80.0-100.0) 01/17/24 MCH 28.4 pg (25.0-34.0) 01/17/24 MCHC 32.7 g/dL (32.0-36.0) 01/17/24 RDW Standard Deviation 41.5 fL (36.4-46.3) 01/17/24 RDW Coefficient of Variation 13.1 % (11.5-14.5) 01/17/24 Plt Count 246 K/uL (130-400) 01/17/24 MPV 10.1 fL (9.4-12.4) 01/17/24 Nucleated Red Blood Cells % (auto) 0.4 % 04/19 Nucleated RBC Absolute Count (auto) 0.02 K/uL (0.00-0.12) 1 06/20/22 Neutrophils (%) (Auto) 68.2 % 01/17/24 Lymphocytes (%) (Auto) 23.4 % 01/17/24 Monocytes # (Auto) 0.57 K/uL (0.11-0.59) 01/17/24 Eosinophils # (Auto) 0.00 K/uL (0.00-0.50) 01/17/24 Immature Granulocyte % (Auto) 0.3 % 01/17/24 Neutrophils # (Auto) 4.99 K/uL (1.40-6.50) 01/17/24 Lymphocytes # (Auto) 1.71 K/uL (1.20-3.40) 01/17/24 Monocytes # (Auto) 0.57 K/uL (0.11-0.59) 01/17/24 Eosinophils # (Auto) 0.00 K/uL (0.00-0.50) 01/17/24 Basophils # (Auto) 0.02 K/uL (0.00-0.20) 01/17/24 Immature Granulocyte # (Auto) 0.02 K/uL (0.01-0.20) 4 Red Blood Cell Morphology Unremarkable 04/17/23 Polychromasia 1+ 04/20/23 PG Care Time/CCT Total # of Minutes Spent Total Time Spent with Patient: Total time spent is greater than 50% in coordination of care (as documented) at patient's floor/unit and/or counseling patient: Coding Level of Care Code 44211 Post Operative Follow-Up Diagnoses History of colostomy reversal Z98.890
[2024-01-18 08:44] LABS: Basophils # (auto) 0.03 K/uL (0.00-0.20); Basophils % (auto) 0.5 %; Eosinophils # (auto) 0.47 K/uL (0.00-0.50); Eosinophils % (auto) 7.9 %; Hematocrit (blood only) 29.7 % (37.0-47.0); Hemoglobin 9.6 g/dl (12.0-16.0); Immature Granulocytes # (auto) 0.02 K/uL (0.01-0.20); Immature Granulocytes % (auto) 0.3 %; Lymphocytes # (auto) 1.96 K/uL (1.20-3.40); Lymphocytes % (auto) 32.8 %; Mean Corpuscular Hemoglobin 28.9 pg (25.0-34.0); Mean Corpuscular Hgb Conc 32.3 g/dL (32.0-36.0); Mean Corpuscular Volume 89.5 fL (80.0-100.0); Mean Platelet Volume 9.9 fL (9.4-12.4); Monocytes # (auto) 0.48 K/uL (0.11-0.59); Neutrophils # (auto) 3.01 K/uL (1.40-6.50); Neutrophils % (auto) 50.5 %; Platelet Count 222 K/uL (130-400); RDW Coefficient of Variation 13.3 % (11.5-14.5); Red Blood Count 3.32 M/uL (4.20-5.40); White Blood Count 5.97 K/ul (4.8-10.8)
[2024-01-19 07:36] LABS: Basophils # (auto) 0.02 K/uL (0.00-0.20); Basophils % (auto) 0.4 %; Eosinophils # (auto) 0.62 K/uL (0.00-0.50); Eosinophils % (auto) 11.4 %; Hematocrit (blood only) 29.6 % (37.0-47.0); Hemoglobin 9.7 g/dl (12.0-16.0); Immature Granulocytes # (auto) 0.01 K/uL (0.01-0.20); Immature Granulocytes % (auto) 0.2 %; Lymphocytes # (auto) 1.83 K/uL (1.20-3.40); Lymphocytes % (auto) 33.6 %; Mean Corpuscular Hemoglobin 28.5 pg (25.0-34.0); Mean Corpuscular Hgb Conc 32.8 g/dL (32.0-36.0); Mean Corpuscular Volume 87.1 fL (80.0-100.0); Mean Platelet Volume 9.7 fL (9.4-12.4); Monocytes # (auto) 0.38 K/uL (0.11-0.59); Neutrophils # (auto) 2.59 K/uL (1.40-6.50); Neutrophils % (auto) 47.4 %; Platelet Count 213 K/uL (130-400); RDW Coefficient of Variation 12.9 % (11.5-14.5); RDW Standard Deviation 41.1 fL (36.4-46.3); White Blood Count 5.45 K/ul (4.8-10.8)
[2024-01-19 08:06] VITALS: BP 125/69; PULSE 76; RESP 18; TEMP 98.4; O2SAT 92
--- NOTE | 2024-01-19 08:40 | Discharge Summary ---
Date of Service January 19, 2024 Principal Diagnosis Elective Robotic Assisted Laparoscopic Joe's Reversal Discharge Exam Constitutional cooperative and comfortable; no acute distress Respiratory normal respiratory effort; no respiratory distress Cardiovascular Rate/Rhythm: regular rate Gastrointestinal (Abdomen) Inspection/Auscultation: + abdominal surgical incision (left side abd gauze and medipore CDI , port sites dermabond); abdomen not distended Percussion/Palpation: abdomen soft Discharge Data Allergies Allergy/AdvReac Type Severity Reaction Status Date / Time salicylates Allergy Severe shortness Verified 01/16/24 08:23 of breath aspirin Allergy Mild wheeze Verified 01/16/24 08:23 Procedures Performed Operation Date: 01/16/24 09:10 Actual Procedures p Robotic Assisted Laparoscopic Joe's Reversal(Not Applicable) - Lili Alegre, Ordered Studies 01/16/24 15:12 US - OR guided needle placemen Routine Hospital Course (1) History of colostomy reversal: Patient is a pleasant 78 yo female that came to [facility] for an elective robotic assisted laparoscopic joe's reversal on 01/16/[address] Alegre. She tolerated the procedure well, see operative note for complete details. She was admitted to the hospital post operatively for care and observation. Her diet was advanced and she was tolerating well without nausea/vomiting and was having bowel movements and passing flatus. Her pain was controlled with oral pain medication, and her vital signs and CBC were stable. On post operative day 3 she was deemed stable for discharge and given return precautions, activities restrictions and follow up recommendations. She was given a prescription for oral pain medication. Total Time Total Time Spent Total Time Spent (In Minutes): 10 Discharge Plan Discharge Items Patient Disposition: Home - Self-Care Reason For Visit: Colostomy, Hx Joe's Procedure for Sigmoid Abs Discharge Diagnosis: Robotic assisted Laparoscopic Joe's Reversal, Possible Open Activity: Per Instructions section Lifting: No more than 10 pounds Bathing Comment: you can shower. No soaking in pools / bath for 2 weeks Exercise/Sports: Wait until after follow-up appointment Driving/Machine Use: no driving while on narcotics for pain Non-emergency contact: Surgeon Call non-emergency contact if: you have any medication questions, your pain is not controlled, you have a fever, your temperature is above 101.5, your wound has increased redness, your wound has increased drainage and your wound pain has increased Follow-up/Referrals: Manoj Weber DO [Primary Care Provider] - Chi-Lili Foss DO [Physician] - 02/08/24 2:30 pm (call office for follow up in 2 weeks ) Diet: Low Fiber Diet Comment: low fiber Addtl Attending Provider Instructions: You may purchase Tylenol over the counter if needed for additional pain control over the next few days. Take per manufacturers instructions. You may removed your surgical abdominal dressing. You have steri strips on that will fall off on their own, do not pick at these or peel off. you can shower with these in place. you can keep a dry gauze over this area if you desire. continue to wear your abdominal binder until your follow up . you can remove for short breaks and for showering. Pending Studies at Discharge: Yes Studies:: surgical pathology Stand-Alone Forms: My [facility] Medications and DC Order Prescriptions: New oxycodone 5 mg tablet 5 - 10 mg PO .[id number] MDD no more than 6 tabs in 24hours PRN (Reason: pain) Qty: 15 0RF Continued multivitamin Tablet 1 tab PO QAM Qty: 0 metoprolol succinate 25 mg tablet extended release 24 hr 25 mg PO QAM cholecalciferol (vitamin D3) [Vitamin D3] 1,000 unit Capsule 1,000 unit PO QPM fluticasone propionate [Flonase Allergy Relief] 50 mcg/actuation [place],Suspension 1 spray INTRANASAL DAILY PRN (Reason: Allergy Symptoms) rosuvastatin 20 mg tablet 20 mg PO HS Prolia 60 mg/mL syringe 60 mg SUBCUT .[id number] montelukast 10 mg tablet 10 mg PO QPM magnesium chloride [Mag 64] 64 mg Tablet,Delayed Release (Dr/Ec) 64 mg PO BID Qty: 60 0RF acetaminophen [Tylenol Arthritis Pain] 650 mg Tablet Extended Release 650 mg PO Q12H PRN (Reason: Pain) cranberry 400 mg Capsule 400 mg PO QAM Rx Instructions: administer with a meal calcium 100 mg Capsule 100 mg PO QAM omeprazole 20 mg Tablet,Delayed Release (Dr/Ec) 20 mg PO BID potassium chloride 20 mEq tablet,ER particles/crystals 20 meq PO QPM ondansetron 8 mg Tablet,Disintegrating 8 mg PO Q12H PRN (Reason: Nausea) albuterol sulfate 90 mcg/actuation HFA aerosol inhaler 2 inh INHALATION Q6H PRN (Reason: sob) loratadine 10 mg Tablet 10 mg PO QPM ascorbic acid (vitamin C) [Vitamin C] 500 mg Tablet,Chewable 500 mg PO DAILY Discharge Orders: Discharge Order (Routine); Ordered 01/19/24 Ordered By: Sp Proctor/Other Patient Handouts: Low-Fiber Diet Admission Data Admit Date/Time: 01/16/24 14:59 Attending Provider: Lili Alegre Admit Provider: Lili Alegre Primary Care Provider: Manoj Weber Coding Level of Care Code 31278 IN/OBS DISCH 30 MIN/LESS Diagnoses History of colostomy reversal Z98.890 CBC w Diff Results Results CBC w Diff Results: RBC 3.40 M/uL (4.20-5.40) L 01/19/24 WBC 5.45 K/ul (4.8-10.8) 01/19/24 Hgb 9.7 g/dl (12.0-16.0) L 01/19/24 Hct 29.6 % (37.0-47.0) L 01/19/24 MCV 87.1 fL (80.0-100.0) 01/19/24 MCH 28.5 pg (25.0-34.0) 01/19/24 MCHC 32.8 g/dL (32.0-36.0) 01/19/24 RDW Standard Deviation 41.1 fL (36.4-46.3) 01/19/24 RDW Coefficient of Variation 12.9 % (11.5-14.5) 01/19/24 Plt Count 213 K/uL (130-400) 01/19/24 MPV 9.7 fL (9.4-12.4) 01/19/24 Nucleated Red Blood Cells % (auto) 0.4 % 04/19 Nucleated RBC Absolute Count (auto) 0.02 K/uL (0.00-0.12) 1 06/20/22 Neutrophils (%) (Auto) 47.4 % 01/19/24 Lymphocytes (%) (Auto) 33.6 % 01/19/24 Monocytes # (Auto) 0.38 K/uL (0.11-0.59) 01/19/24 Eosinophils # (Auto) 0.62 K/uL (0.00-0.50) H 01/19/24 Immature Granulocyte % (Auto) 0.2 % 01/19/24 Neutrophils # (Auto) 2.59 K/uL (1.40-6.50) 01/19/24 Lymphocytes # (Auto) 1.83 K/uL (1.20-3.40) 01/19/24 Monocytes # (Auto) 0.38 K/uL (0.11-0.59) 01/19/24 Eosinophils # (Auto) 0.62 K/uL (0.00-0.50) H 01/19/24 Basophils # (Auto) 0.02 K/uL (0.00-0.20) 01/19/24 Immature Granulocyte # (Auto) 0.01 K/uL (0.01-0.20) 4 Red Blood Cell Morphology Unremarkable 04/17/23 Polychromasia 1+ 04/20/23
--- NOTE | 2024-01-19 09:24 | Surgery Progress Note ---
<Statement entered by Lili Alegre DO - 01/19/24 10:02> Discharge plan for today discussed with the surgical [employer] REP and I agree with this plan. Date of Service January 19, 2024 Assessment & Plan (1) History of colostomy reversal: Plan: POD 3 01/19/24 Robotic Assisted Laparoscopic Vicente's Reversal doing well, pain controlled tolerating advancement to low fiber VSS Had BM this AM and passing flatus d/c today Admission and Anticipated Discharge Date Admission Date: January 16, 2024 Subjective no complaints , desires discharge Review of Systems Constitutional: no fever and no chills Respiratory: no dyspnea Cardiovascular: no chest pain Gastrointestinal: + abdominal pain; no nausea and no vomit ing Musculoskeletal: no muscle weakness Physical Exam Constitutional: cooperative and comfortable; no acute distress Respiratory: normal respiratory effort; no respiratory distress Cardiovascular: Rate/Rhythm: regular rate and + tachycardic (93) Gastrointestinal (Abdomen): Inspection/Auscultation: + abdominal surgical incision (left side abd gauze and medipore CDI , port sites dermabond); abdomen not distended Percussion/Palpation: abdomen soft Results & Data Vital Signs (Past 12 Hours) Vital Signs Temp Pulse Resp BP Pulse Ox O2 Del Method 01/19/24 08:05 98.4 F 76 18 125/69 92 Room Air Results CBC w Diff Results: RBC 3.40 M/uL (4.20-5.40) L 01/19/24 WBC 5.45 K/ul (4.8-10.8) 01/19/24 Hgb 9.7 g/dl (12.0-16.0) L 01/19/24 Hct 29.6 % (37.0-47.0) L 01/19/24 MCV 87.1 fL (80.0-100.0) 01/19/24 MCH 28.5 pg (25.0-34.0) 01/19/24 MCHC 32.8 g/dL (32.0-36.0) 01/19/24 RDW Standard Deviation 41.1 fL (36.4-46.3) 01/19/24 RDW Coefficient of Variation 12.9 % (11.5-14.5) 01/19/24 Plt Count 213 K/uL (130-400) 01/19/24 MPV 9.7 fL (9.4-12.4) 01/19/24 Nucleated Red Blood Cells % (auto) 0.4 % 04/19 Nucleated RBC Absolute Count (auto) 0.02 K/uL (0.00-0.12) 1 06/20/22 Neutrophils (%) (Auto) 47.4 % 01/19/24 Lymphocytes (%) (Auto) 33.6 % 01/19/24 Monocytes # (Auto) 0.38 K/uL (0.11-0.59) 01/19/24 Eosinophils # (Auto) 0.62 K/uL (0.00-0.50) H 01/19/24 Immature Granulocyte % (Auto) 0.2 % 01/19/24 Neutrophils # (Auto) 2.59 K/uL (1.40-6.50) 01/19/24 Lymphocytes # (Auto) 1.83 K/uL (1.20-3.40) 01/19/24 Monocytes # (Auto) 0.38 K/uL (0.11-0.59) 01/19/24 Eosinophils # (Auto) 0.62 K/uL (0.00-0.50) H 01/19/24 Basophils # (Auto) 0.02 K/uL (0.00-0.20) 01/19/24 Immature Granulocyte # (Auto) 0.01 K/uL (0.01-0.20) 4 Red Blood Cell Morphology Unremarkable 04/17/23 Polychromasia 1+ 04/20/23 PG Care Time/CCT Total # of Minutes Spent Total Time Spent with Patient: Total time spent is greater than 50% in coordination of care (as documented) at patient's floor/unit and/or counseling patient: Coding Level of Care Code 77282 Post Operative Follow-Up Diagnoses History of colostomy reversal Z98.890
== END 2024-01-19 12:15 | disposition home or self-care (01) | DRG 346 ==
LOC: ASU 07:33 → 3W 14:59

== ENCOUNTER 2024-01-26 13:24 | Inpatient (IN) ==
[2024-01-26] MEDS: ONDANSETRON INJ 2 MG/ML 2 ML VIAL IV STA (14:01)
[2024-01-26 14:02] LABS: Basophils # (auto) 0.02 K/uL (0.00-0.20); Basophils % (auto) 0.2 %; Eosinophils # (auto) 0.01 K/uL (0.00-0.50); Eosinophils % (auto) 0.1 %; Hematocrit (blood only) 36.8 % (37.0-47.0); Hemoglobin 11.7 g/dl (12.0-16.0); Immature Granulocytes # (auto) 0.03 K/uL (0.01-0.20); Immature Granulocytes % (auto) 0.2 %; Lymphocytes # (auto) 1.27 K/uL (1.20-3.40); Lymphocytes % (auto) 9.6 %; Mean Corpuscular Hemoglobin 28.3 pg (25.0-34.0); Mean Corpuscular Hgb Conc 31.8 g/dL (32.0-36.0); Mean Corpuscular Volume 88.9 fL (80.0-100.0); Mean Platelet Volume 9.2 fL (9.4-12.4); Monocytes # (auto) 0.44 K/uL (0.11-0.59); Monocytes % (auto) 3.3 %; Neutrophils # (auto) 11.47 K/uL (1.40-6.50); Neutrophils % (auto) 86.6 %; Platelet Count 374 K/uL (130-400); RDW Coefficient of Variation 12.7 % (11.5-14.5); RDW Standard Deviation 41.3 fL (36.4-46.3); Red Blood Count 4.14 M/uL (4.20-5.40); White Blood Count 13.24 K/ul (4.8-10.8)
[2024-01-26 14:16] LABS: Alanine Aminotransferase 11 U/L (7-52); Albumin Globulin Ratio 1.3 (0.9-2); Albumin Level 4.1 gm/dl (3.4-5.0); Alkaline Phosphatase 92 U/L (34-104); Anion Gap 12 (3-11); Aspartate Aminotransferase 20 U/L (13-39); BUN Creatinine Ratio 29.5 (10-20); Bilirubin,Total 1.2 mg/dl (0.2-1.0); Blood Urea Nitrogen 18 mg/dl (6-23); Calcium 9.3 mg/dl (8.6-10.3); Carbon Dioxide 24 mmol/L (21-32); Chloride 97 mmol/L (98-107); Est GFR (African American) 101.3 ml/min; Est GFR (Non-African American) 87.4 ml/min; Globulin 3.1 gm/dl (2.5-4.0); Glucose 103 mg/dl (70-99(Fasting)); Lipase 11 U/L (11-82); Potassium 4.3 mmol/L (3.5-5.1); Sodium 133 mmol/L (136-145); Total Protein 7.2 gm/dl (6.0-8.3)
[2024-01-26] MEDS: OPTIRAY 320 100ml IV ONE (15:49)
--- NOTE | 2024-01-26 16:08 | Emergency Department Note ---
Impression & Plan Infected surgical wound, Cellulitis, Leukocytosis, Tachycardia ED Provider Note NAME: LEIGH TOBIAS AGE: 78 SEX: F : 1945 ARRIVES VIA: Walk-In INFORMANT: [Patient] ED PROVIDER(S): [Juan Miguel Monzon MD] CHIEF COMPLAINT: Infection HISTORY OF PRESENT ILLNESS: The patient is a 78-year-old female presents to the ER with an abdominal surgical wound infection. The patient had a colostomy reversal done 10 days ago. She had not looked at the wound until the dressing was taken down today at the surgical office. There was erythema and puslike discharge. The patient states that she has had a decreased appetite and just has not felt well for a few days. She has had some chills and some nausea/vomiting. The patient does notice some urinary frequency. She has not had cough or congestion or shortness of breath. PMHx/PSHx/Social Hx: See Below PHYSICAL EXAM: GENERAL: Patient is in no acute distress. HEENT: No acute trauma, normocephalic atraumatic, mucous membranes moist, no nasal congestion. NECK: No stridor, no adenopathy, no meningismus, trachea is midline. LUNGS: Clear to auscultation bilaterally, no wheeze, no rhonchi, breath sounds equal. HEART: Mildly tachycardic, regular rhythm, no murmurs. ABDOMEN: Soft, tender to the mid abdomen over an area of erythema surrounding her surgical wound. The erythema is around 8 cm in size. There is a small open area draining puslike discharge. Fluctuance noted. A culture was obtained. EXTREMITIES: No cyanosis, full range of motion of all the joints without pain or difficulty. NEUROLOGIC: Oriented x 3, no acute motor or sensory deficits, no focal weakness. SKIN: No jaundice, no diaphoresis. DIFFERENTIAL DIAGNOSIS: Abscess, cellulitis, intra-abdominal abscess, surgical site infection, among others. EMERGENCY DEPARTMENT PROCEDURES: MEDICAL DECISION MAKING: There is a mild leukocytosis, this would be consistent with infection. A very mild anemia was seen. There was a normal platelet count. Sodium is slightly low but not in need of emergent correction. No renal failure. No concerning liver enzyme elevation. Lactic acid level was not elevated making severe sepsis less likely. There was no evidence for pancreatitis. Urinalysis showed dehydration, no convincing evidence for infection. Abdominal and pelvis CT showed abdominal wall cellulitis. There was no drainable abscess within the abdomen itself. No bowel obstruction. On exam, the patient was tachycardic with an abdominal wall cellulitis, purulent discharge was seen and a culture was obtained and sent. The patient received IV saline for hydration. She was given IV Zosyn as antibiotic coverage. I did speak with general surgery. The patient is being hospitalized on their service. She has a surgical wound infection. The patient is aware of her findings and the need for a hospital stay. I did speak with case management. Prior/Outside records/notes reviewed: Surgical discharge summary from 01/19/2024 describing her presentation, hospital course and plan at discharge. Imaging/x-ray results per my interpretation: Chronic Medical/Social conditions affecting care: Advanced age. Care/Management discussed with: General Surgery-Dr. Chi Foss. Case management. Level of care consideration(s): After review of the information above and other included data: --I believe the patient requires escalation of care to admission Critical Care Note: I have personally spent 41 minutes of critical care time in the direct management of this patient. This includes bedside care, interpretation of diagnostic studies, and testing, discussion with consultants, patient, and family members, and other required patient management activities. This 41 minutes is in excess of all separately billable procedures. DISPOSITION: Admission Past Med/Surg History Problem List (Updated 01/26/24 @ 22:19 by Juan Miguel Monzon MD) Tachycardia (Acute) Leukocytosis (Acute) Cellulitis (Acute) Infected surgical wound (Acute) Wound infection after surgery Hypomagnesemia (Acute) Abnormal CT of the abdomen Hypomagnesemia (Acute) Abscess of sigmoid colon 03/03/23 Lumbar spondylosis Degenerative arthritis of knee, bilateral Trochanteric bursitis, right hip GERD (gastroesophageal reflux disease) Hyperlipidemia Hypertension Medical History Encounter for pre-operative examination Hx of migraines Hypomagnesemia Lumbar spondylosis Hypertension Hyperlipidemia GERD (gastroesophageal reflux disease) CAD (coronary artery disease) moderate nonobstructive per [facility] cardiology 2021 records Atrial septal aneurysm PFO (patent foramen ovale) Flank pain reports chills and left flank pain 09/13/23- encouraged to call PCP resolved Hx of diverticulitis of colon Hx of chronic sinusitis Colostomy present (~04/2023) placed due to diverticulitis / had partial colectomy Osteoporosis COPD (chronic obstructive pulmonary disease) to have PFT's>had this done, waiting on results Asthma quit taking trelegy ellipta due to making cough worse - uses albuterol prn Surgical History History of colostomy reversal (01/16/24) p Robotic Assisted Laparoscopic Vicente's Reversal(Not Applicable) - Lili Alegre, DO Extensive lysis of adhesions Takedown of the splenic flexure Hx of tubal ligation Hx of bilateral cataract extraction Hx of colonoscopy 04/2023 and 10/17/23, Dr. Alegre Hx of cardiac cath Pt reports, " I think I had one many years ago" reports she did not have stents placed and they told her "it was ok" - No [place]. reports completed at [facility] - no record of this. Has not seen S Cardio for > 1 year History of colon resection with colostomy - having a reversal on October 11, 2023 H/O esophagogastroduodenoscopy (03/25/23) Hx laparoscopic cholecystectomy (03/08/23) History of open reduction and internal fixation (ORIF) procedure rt hip, 3 pins Hx of sinus surgery Family History Other Family history non-contributory Social History Smoking Status: Never smoker Tobacco Type: Cigarettes Second Hand Exposure: No; Do You Dip or Chew Tobacco: No; Hx Alcohol Use: No Hx Substance Use: No Preferred Language: Swedish Communication Ability: Effective Visual Impairment: No Limitations Pastry Mixer Required: No Beliefs That Will Affect Care: None Current Living Situation: Spouse Current Living Situation Comment: lives at home w Other Information That Helps Us Care for You: No Feels Safe at Home: Yes Assistive Devices: None Allergies Allergies Allergy/AdvReac Type Severity Reaction Status Date / Time salicylates Allergy Severe shortness Verified 01/26/24 16:42 of breath aspirin Allergy Mild wheeze Verified 01/26/24 16:42 Home Meds Home Medications Medication Instructions Recorded Confirmed multivitamin 1 tab PO QAM ##0 11/12/10 01/26/24 cholecalciferol (vitamin D3) 25 1,000 unit PO QPM 01/25/19 01/26/24 mcg (1,000 unit) capsule (Vitamin D3) metoprolol succinate 25 mg 25 mg PO QAM 01/25/19 01/26/24 tablet,extended release 24 hr fluticasone propionate 50 1 spray intranasal DAILY PRN 06/01/19 01/26/24 mcg/actuation nasal Allergy Symptoms spray,suspension (Flonase Allergy Relief) denosumab 60 mg/mL subcutaneous 60 mg subcut UD 02/10/23 01/26/24 syringe (Prolia) rosuvastatin 20 mg tablet 20 mg PO HS 02/10/23 01/26/24 montelukast 10 mg tablet 10 mg PO QPM 04/06/23 01/26/24 albuterol sulfate 90 mcg/actuation 2 inh inhalation Q6H PRN sob 09/14/23 01/26/24 aerosol inhaler calcium 100 mg capsule 100 mg PO QAM 09/14/23 01/26/24 cranberry 400 mg capsule 400 mg PO QAM 09/14/23 01/26/24 loratadine 10 mg tablet 10 mg PO QPM 09/14/23 01/26/24 omeprazole 20 mg tablet,delayed 20 mg PO BID 09/14/23 01/26/24 release ascorbic acid (vitamin C) 500 mg 500 mg PO DAILY 01/06/24 01/26/24 chewable tablet (Vitamin C) oxycodone 5 mg tablet 5 - 10 mg PO UD PRN pain 01/26/24 01/26/24 potassium chloride 10 mEq 20 meq PO QPM 01/26/24 01/26/24 capsule,extended release Previous Rx's Medication Instructions Recorded magnesium chloride 64 mg 64 mg PO BID #60 tabs 04/25/23 (magnesium chloride) tablet,delayed release (Mag 64) Results & Data (ED) Vital Signs Vital Signs - 24 hr 01/26/24 13:37 01/26/24 15:27 01/26/24 15:30 Temperature 36.9 C Temperature Source Temporal Artery Scan Pulse Rate 116 H 94 H 94 H Pulse Rate from SpO2 Sensor 93 H 95 H Respiratory Rate 18 23 21 Respiratory Effort / Characteristics Non-Labored Spontaneous Respiratory Depth Normal Blood Pressure 113/76 Blood Pressure Mean 88 Pulse Oximetry 90 93 91 Oxygen Delivery Method Room Air Sepsis Recent Fever Within 48 Hours No Sepsis New/Unexplained Change in Mental Status No Sepsis Action Taken by Nursing No Action Required 01/26/24 16:09 01/26/24 16:10 Temperature Temperature Source Pulse Rate 91 H 93 H Pulse Rate from SpO2 Sensor Respiratory Rate 14 Respiratory Effort / Characteristics Respiratory Depth Blood Pressure Blood Pressure Mean Pulse Oximetry Oxygen Delivery Method Sepsis Recent Fever Within 48 Hours Sepsis New/Unexplained Change in Mental Status Sepsis Action Taken by [facility] Medications Current Medication List: was personally reviewed by me Laboratory Data Attestation: I reviewed the patient's lab results. 01/26/24 13:47 01/26/24 13:47 Lab Results 01/26/24 01/26/24 Range/Units 13:47 16:01 WBC 13.24 H (4.8-10.8) K/ul RBC 4.14 L (4.20-5.40) M/uL Hgb 11.7 L (12.0-16.0) g/dl Hct 36.8 L (37.0-47.0) % MCV 88.9 (80.0-100.0) fL MCH 28.3 (25.0-34.0) pg MCHC 31.8 L (32.0-36.0) g/dL RDW Std Deviation 41.3 (36.4-46.3) fL RDW Coeff of Edgard 12.7 (11.5-14.5) % Plt Count 374 (130-400) K/uL MPV 9.2 L (9.4-12.4) fL Immature Gran % (Auto) 0.2 % Neut % (Auto) 86.6 % Lymph % (Auto) 9.6 % Simpson % (Auto) 3.3 % Eos % (Auto) 0.1 % Baso % (Auto) 0.2 % Neut # (Auto) 11.47 H (1.40-6.50) K/uL Lymph # (Auto) 1.27 (1.20-3.40) K/uL Simpson # (Auto) 0.44 (0.11-0.59) K/uL Eos # (Auto) 0.01 (0.00-0.50) K/uL Baso # (Auto) 0.02 (0.00-0.20) K/uL Immature Gran # (Auto) 0.03 (0.01-0.20) K/uL Sodium 133 L (136-145) mmol/L Potassium 4.3 (3.5-5.1) mmol/L Chloride 97 L (98-107) mmol/L Carbon Dioxide 24 (21-32) mmol/L Anion Gap 12 H (3-11) BUN 18 (6-23) mg/dl Creatinine 0.61 (0.6-1.2) mg/dl Est Cr Clr Drug Dosing Not Reportable Est GFR ( Amer) 101.3 ml/min Est GFR (Non-Af Amer) 87.4 ml/min BUN/Creatinine Ratio 29.5 H (10-20) Glucose 103 H (70-99(Fasting)) mg/dl Lactate 1.2 (0.4-2.0) mmol/L Calcium 9.3 (8.6-10.3) mg/dl Total Bilirubin 1.2 H (0.2-1.0) mg/dl AST 20 (13-39) U/L ALT 11 (7-52) U/L Alkaline Phosphatase 92 (34-104) U/L Total Protein 7.2 (6.0-8.3) gm/dl Albumin 4.1 (3.4-5.0) gm/dl Globulin 3.1 (2.5-4.0) gm/dl Albumin/Globulin Ratio 1.3 (0.9-2) Lipase 11 (11-82) U/L Administered Medications Lactated Ringer's (Lr) 1,000 mls @ 80 mls/hr IV .[id number] [facility] Stop: 02/25/24 18:36 Last Admin: 01/26/24 19:46 Dose: 80 mls/hr Documented By: CODY Piperacillin Sod/Tazobactam Sod (Zosyn) 4.5 gm in 100 mls @ 25 mls/hr IV Q8H [facility]; Protocol Stop: 02/05/24 20:59 Last Admin: 01/26/24 21:45 Dose: 25 mls/hr Documented By: CODY Loratadine (Loratadine 10 Mg Tab) 10 mg PO QPM ALFREDA Stop: 02/25/24 20:59 Last Admin: 01/26/24 20:38 Dose: Not Given Documented By: CODY Magnesium Chloride (Magnesium Chloride W/Calcium 64mg Delayed Rel Tab) 64 mg PO BID ALFREDA Stop: 02/25/24 20:59 Last Admin: 01/26/24 20:38 Dose: 64 mg Documented By: CODY Montelukast Sodium (Montelukast Sodium 10 Mg Tablet) 10 mg PO QPM ALFREDA Stop: 02/25/24 20:59 Last Admin: 01/26/24 20:39 Dose: 10 mg Documented By: CODY Pantoprazole Sodium (Pantoprazole 40 Mg Tab) 40 mg PO BID ALFREDA Stop: 02/25/24 20:59 Last Admin: 01/26/24 20:39 Dose: 40 mg Documented By: CODY Potassium Chloride (Potassium Chloride Crtab 20 Meq Tabcr) 20 meq PO QPM ALFREDA Stop: 02/25/24 20:59 Last Admin: 01/26/24 20:38 Dose: Not Given Documented By: CODY Rosuvastatin Calcium (Rosuvastatin Calcium 20 Mg Tab) 20 mg PO HS ALFREDA Stop: 02/25/24 20:59 Last Admin: 01/26/24 20:39 Dose: 20 mg Documented By: CODY Discontinued Medications Sodium Chloride (Nss) 1,000 mls @ 999 mls/hr IV .Q1H1M ONE Stop: 01/26/24 16:22 Last Infusion: 01/26/24 17:37 Dose: Infused Documented By: Admin: 01/26/24 16:33 Dose: 999 mls/hr Documented By: IVET Piperacillin Sod/Tazobactam Sod (Zosyn) 4.5 gm in 100 mls @ 200 mls/hr IV NOW ONE Stop: 01/26/24 15:52 Last Infusion: 01/26/24 17:35 Dose: Infused Documented By: Admin: 01/26/24 16:33 Dose: 200 mls/hr Documented By: IVET Ioversol (Optiray 320 100ml) 91 ml IV ONCE ONE Stop: 01/26/24 15:50 Last Admin: 01/26/24 15:49 Dose: 91 ml Documented By: MAGEN Ondansetron HCl (Ondansetron Inj 2 Mg/Ml 2 Ml Vial) 4 mg IV NOW STA Stop: 01/26/24 13:43 Last Admin: 01/26/24 14:01 Dose: 4 mg Documented By: ALAN Imaging Data Radiologist's Impression: Abdomen/Pelvis CT 01/26/24 15:[address] WITH IV CONTRAST CT DOSE: 641.82 mGy.cm HISTORY: Colostomy reversal, infection TECHNIQUE: Multiaxial CT images of the abdomen and pelvis were performed following the use of intravenous contrast. A dose lowering technique was utilized adhering to the principles of ALARA. COMPARISON STUDY: Abdomen and pelvis CT 04/06/2023 FINDINGS: There are lung bases are clear. There are scattered linear and nodular densities within the base of the left lower lobe. Dominant nodule on image 52 measures 8 mm. This may represent a resolving pneumonitis and could be due to prior aspiration. There are 3 cannulated screws within the proximal right femur. No acute fracture identified. The heart is mildly enlarged. There is a small hiatus hernia. Prior cholecystectomy. This likely accounts for the mild bile duct dilatation. No hepatic or splenic masses. The adrenal glands and pancreas unremarkable. No hydronephrosis. Multiple bilateral renal hypodense lesions again noted with the largest within the right mid kidney measuring 3.6 cm. These favor cysts. There are few represents bilateral renal lesions with the largest within the mid right kidney on image 94 measuring 1 cm. These are stable compared the prior study and favor hyperdense cysts main portal vein is patent. Calcified plaque within the normal caliber abdominal aorta. No retroperitoneal or pelvic lymphadenopathy. Normal bladder. There is a 14 mm enhancing nodule within the uterine fundus. This favors a fibroid. Anastomotic suture material seen at the rectosigmoid junction with mild surrounding inflammatory change and presacral edema. This favors recent postoperative changes status post reversal of a colostomy. There are few punctate foci of gas adjacent to the anastomotic suture material which appear to be within small diverticula. Otherwise, no loculated fluid collections to suggest an anastomotic leak at this time. Mild thickening at the anastomosis site favors postoperative change. A nonspecific colitis also remains in the differential diagnosis. Multiple scattered colonic diverticula are noted. No dilated loops of bowel to suggest an obstruction. Normal appendix. Focal area of subcutaneous fat stranding and a small amount of ill-defined subcutaneous fluid within the left lower quadrant anterior abdominal wall best seen on image 191. This measures approximately 6.5 cm. There is overlying skin thickening. This likely represents recent postoperative change. Underlying phlegmon/infectious process also remains in the differential diagnosis. However, no loculated fluid collections at this time to suggest an abscess. Scattered areas of gas within the anterior abdominal wall likely due to the recent postoperative change. IMPRESSION: 1. Focal area of subcutaneous fat stranding and a small amount of ill-defined subcutaneous fluid within the left lower quadrant anterior abdominal wall which measures approximately 6.5 cm. There is overlying skin thickening. This likely represents recent postoperative change. Underlying phlegmon/infectious process also remains in the differential diagnosis. However, no loculated fluid collections at this time to suggest an abscess. 2. Scattered areas of gas within the anterior abdominal wall likely due to the recent postoperative change. 3. Anastomotic suture material seen at the rectosigmoid junction with mild surrounding inflammatory change and presacral edema. This favors recent postoperative changes status post reversal of a colostomy. There are few punctate foci of gas adjacent to the anastomotic suture material which appear to be within small diverticula. Otherwise, no loculated fluid collections or extraluminal gas to suggest an anastomotic leak at this time. 4. There are scattered linear and nodular densities within the base of the left lower lobe. Dominant nodule measures 8 mm. This may represent a resolving pneumonitis and could be due to prior aspiration. Follow-up chest CT in 6 months recommended to ensure resolution. 5. Additional findings as described above. ACT 112: Negative or not required by law. Electronically signed by: Sandip Canales M.D. 01/26/2024 4:26 PM Discharge Plan Visit Data Chief Complaint: Infection Stated Complaint: SURG 01/15, INFECTION, SHIVERING ED Provider: Juan Miguel Monzon Discharge Problem: Infected surgical wound, Cellulitis, Leukocytosis, Tachycardia Patient Disposition: Admitted As Inpatient Condition: Fair Discharge Instructions Interventions: ED Discharge Assessment Last Done: 01/26/24 17:49 Discharge Problem: Cellulitis Qualifiers: Site of cellulitis: trunk Site of cellulitis of trunk: abdominal wall Qualified Code(s): L03.311 - Cellulitis of abdominal wall Leukocytosis Qualifiers: Leukocytosis type: unspecified Qualified Code(s): D72.829 - Elevated white blood cell count, unspecified
--- NOTE | 2024-01-26 16:28 | CT Scan Report ---
ABDOMEN AND PELVIS CT WITH IV CONTRAST CT DOSE: 641.82 mGy.cm HISTORY: Colostomy reversal, infection TECHNIQUE: Multiaxial CT images of the abdomen and pelvis were performed following the use of intrave nous contrast. A dose lowering technique was utilized adhering to the principles of ALARA. COMPARISON STUDY: Abdomen and pelvis CT 04/06/2023 FINDINGS: There are lung bases are clear. There are scattered linear and nodular densities within the base of the left lower lobe. Dominant nodule on image 52 measures 8 mm. This may represent a resolvi ng pneumonitis and could be due to prior aspiration. There are 3 cannulated screws within the proxima l right femur. No acute fracture identified. The heart is mildly enlarged. There is a small hiatus he rnia. Prior cholecystectomy. This likely accounts for the mild bile duct dilatation. No hepatic or sp lenic masses. The adrenal glands and pancreas unremarkable. No hydronephrosis. Multiple bilateral simeon al hypodense lesions again noted with the largest within the right mid kidney measuring 3.6 cm. These favor cysts. There are few represents bilateral renal lesions with the largest within the mid right kidney on image 94 measuring 1 cm. These are stable compared the prior study and favor hyperdense cys ts main portal vein is patent. Calcified plaque within the normal caliber abdominal aorta. No retrope ritoneal or pelvic lymphadenopathy. Normal bladder. There is a 14 mm enhancing nodule within the uter ine fundus. This favors a fibroid. Anastomotic suture material seen at the rectosigmoid junction with mild surrounding inflammatory change and presacral edema. This favors recent postoperative changes s tatus post reversal of a colostomy. There are few punctate foci of gas adjacent to the anastomotic levi ture material which appear to be within small diverticula. Otherwise, no loculated fluid collections to suggest an anastomotic leak at this time. Mild thickening at the anastomosis site favors postopera tive change. A nonspecific colitis also remains in the differential diagnosis. Multiple scattered col onic diverticula are noted. No dilated loops of bowel to suggest an obstruction. Normal appendix. Foc al area of subcutaneous fat stranding and a small amount of ill-defined subcutaneous fluid within the left lower quadrant anterior abdominal wall best seen on image 191. This measures approximately 6.5 cm. There is overlying skin thickening. This likely represents recent postoperative change. Underlyin g phlegmon/infectious process also remains in the differential diagnosis. However, no loculated fluid collections at this time to suggest an abscess. Scattered areas of gas within the anterior abdominal wall likely due to the recent postoperative change. IMPRESSION: 1. Focal area of subcutaneous fat stranding and a small amount of ill-defined subcutaneous fluid with in the left lower quadrant anterior abdominal wall which measures approximately 6.5 cm. There is over lying skin thickening. This likely represents recent postoperative change. Underlying phlegmon/infect ious process also remains in the differential diagnosis. However, no loculated fluid collections at t his time to suggest an abscess. 2. Scattered areas of gas within the anterior abdominal wall likely due to the recent postoperative c hange. 3. Anastomotic suture material seen at the rectosigmoid junction with mild surrounding inflammatory c hange and presacral edema. This favors recent postoperative changes status post reversal of a colosto my. There are few punctate foci of gas adjacent to the anastomotic suture material which appear to be within small diverticula. Otherwise, no loculated fluid collections or extraluminal gas to suggest a n anastomotic leak at this time. 4. There are scattered linear and nodular densities within the base of the left lower lobe. Dominant nodule measures 8 mm. This may represent a resolving pneumonitis and could be due to prior aspiration . Follow-up chest CT in 6 months recommended to ensure resolution. 5. Additional findings as described above. ACT 112: Negative or not required by law. Electronically signed by: Sandip Canales M.D. 01/26/2024 4:26 PM
--- NOTE | 2024-01-26 16:32 | History & Physical Report ---
<Statement entered by Lili Alegre DO - 01/27/24 08:01> I saw and examined this patient with the surgical PA. I agree with this plan. Date of Service January 26, 2024 Assessment & Plan (1) Wound infection after surgery: Plan: This is a 78yF with a PMH of recent robotic colostomy reversal with Dr. Arnie Foss on 01/16/24 who presents to the [facility] ED on 01/26/24 with complaints of chills, nausea, along with wound pain. She was evaluated in the office today and noted to be tachycardic. On exam her abdomen showed erythema of the wound at the site where the colostomy was reversed with drainage of fluid concerning for infection. She was referred to the ER for further evaluation. Patient denies any fevers, chest pain, or shortness of breath. Reports some recent nausea, lack of appetite, and looser stools. Today in the ER workup with a CT a/p showed a focal area of subcutaneous fat stranding and a small amount of ill-defined subcutaneous fluid within the left lower quadrant anterior abdominal wall which measures approximately 6.5 cm. There is overlying skin thickening. No loculated fluid collections at this time to suggest an abscess. WBC 13, Hbg 11.7, Cr 0.6. Vitals show HRs 90-100s and is afebrile with stable BP. On exam abdomen is soft with area of erythema and tenderness over the left lower incision where colostomy was taken down. There is an area that is open draining a small amount of fluid. Culture was taken. Area opened up to about 1-2cm and some nu-gauze packing was placed. Wound then covered with dry 4x4 gauze and tape. Patient will benefit from twice daily wound changes and admission for a period of IV abx to ensure ongoing improvement prior to discharge to home. Diet okay and home meds ok. No plans for surgical intervention at this time. Pt seen/examined with dr. alegre. History of Present Illness Primary Care Provider: Manoj Weber DO This is a 78yF with a PMH of recent robotic colostomy reversal with Dr. Arnie Foss on 01/16/24 who presents to the [facility] ED on 01/26/24 with complaints of chills, nausea, along with wound pain. She was evaluated in the office today and noted to be tachycardic. On exam her abdomen showed erythema of the wound at the site where the colostomy was reversed with drainage of fluid concerning for infection. She has been wearing an abdominal binder. She was referred to the ER for further evaluation. Patient denies any fevers, chest pain, or shortness of breath. She says since discharge the first few days were going well, now over the last several days developed nausea in the AM relieved with zofran. Of recent her appetite has been lower. Since dispo her BMs were normal but are now more loose over last few days. No blood in stools. In the ER she underwent a CT a/p that shows focal area of subcutaneous fat stranding and a small amount of ill- defined subcutaneous fluid within the left lower quadrant anterior abdominal wall which measures approximately 6.5 cm. There is overlying skin thickening. No loculated fluid collections at this time to suggest an abscess. Allergies Allergy/AdvReac Type Severity Reaction Status Date / Time salicylates Allergy Severe shortness Verified 01/26/24 16:42 of breath aspirin Allergy Mild wheeze Verified 01/26/24 16:42 Home Medications Medication Instructions Recorded Confirmed Type multivitamin 1 tab PO QAM ##0 11/12/10 01/26/24 History cholecalciferol (vitamin D3) 25 1,000 unit PO QPM 01/25/19 01/26/24 History mcg (1,000 unit) capsule (Vitamin D3) metoprolol succinate 25 mg 25 mg PO QAM 01/25/19 01/26/24 History tablet,extended release 24 hr fluticasone propionate 50 1 spray intranasal DAILY PRN 06/01/19 01/26/24 History mcg/actuation nasal Allergy Symptoms spray,suspension (Flonase Allergy Relief) denosumab 60 mg/mL subcutaneous 60 mg subcut UD 02/10/23 01/26/24 History syringe (Prolia) rosuvastatin 20 mg tablet 20 mg PO HS 02/10/23 01/26/24 History montelukast 10 mg tablet 10 mg PO QPM 04/06/23 01/26/24 History magnesium chloride 64 mg 64 mg PO BID #60 tabs 04/25/23 01/26/24 Rx (magnesium chloride) tablet,delayed release (Mag 64) albuterol sulfate 90 mcg/actuation 2 inh inhalation Q6H PRN sob 09/14/23 01/26/24 History aerosol inhaler calcium 100 mg capsule 100 mg PO QAM 09/14/23 01/26/24 History cranberry 400 mg capsule 400 mg PO QAM 09/14/23 01/26/24 History loratadine 10 mg tablet 10 mg PO QPM 09/14/23 01/26/24 History omeprazole 20 mg tablet,delayed 20 mg PO BID 09/14/23 01/26/24 History release ascorbic acid (vitamin C) 500 mg 500 mg PO DAILY 01/06/24 01/26/24 History chewable tablet (Vitamin C) oxycodone 5 mg tablet 5 - 10 mg PO UD PRN pain 01/26/24 01/26/24 History potassium chloride 10 mEq 20 meq PO QPM 01/26/24 01/26/24 History capsule,extended release Past Med/Surg History Problem List (Updated 01/26/24 @ 17:07 by Ariane Wooten PA-C) Wound infection after surgery Hypomagnesemia (Acute) Abnormal CT of the abdomen Hypomagnesemia (Acute) Abscess of sigmoid colon 03/03/23 Lumbar spondylosis Degenerative arthritis of knee, bilateral Trochanteric bursitis, right hip GERD (gastroesophageal reflux disease) Hyperlipidemia Hypertension Medical History Encounter for pre-operative examination Hx of migraines Hypomagnesemia Lumbar spondylosis Hypertension Hyperlipidemia GERD (gastroesophageal reflux disease) CAD (coronary artery disease) moderate nonobstructive per [facility] cardiology 2021 records Atrial septal aneurysm PFO (patent foramen ovale) Flank pain reports chills and left flank pain 09/13/23- encouraged to call PCP resolved Hx of diverticulitis of colon Hx of chronic sinusitis Colostomy present (~04/2023) placed due to diverticulitis / had partial colectomy Osteoporosis COPD (chronic obstructive pulmonary disease) to have PFT's>had this done, waiting on results Asthma quit taking trelegy ellipta due to making cough worse - uses albuterol prn Surgical History History of colostomy reversal (01/16/24) p Robotic Assisted Laparoscopic Vicente's Reversal(Not Applicable) - Lili Alegre, DO Extensive lysis of adhesions Takedown of the splenic flexure Hx of tubal ligation Hx of bilateral cataract extraction Hx of colonoscopy 04/2023 and 10/17/23, Dr. Alegre Hx of cardiac cath Pt reports, " I think I had one many years ago" reports she did not have stents placed and they told her "it was ok" - No NC. reports completed at [facility] - no record of this. Has not seen [facility] for > 1 year History of colon resection with colostomy - having a reversal on October 11, 2023 H/O esophagogastroduodenoscopy (03/25/23) Hx laparoscopic cholecystectomy (03/08/23) History of open reduction and internal fixation (ORIF) procedure rt hip, 3 pins Hx of sinus surgery Family History Other Family history non-contributory Social History Smoking Status: Former smoker Tobacco Type: Cigarettes Second Hand Exposure: No; Do You Dip or Chew Tobacco: No; Hx Alcohol Use: Yes Alcohol type: wine Hx Substance Use: No Preferred Language: Portuguese Communication Ability: Effective Visual Impairment: No Limitations Hammerer Helper Required: No Beliefs That Will Affect Care: None Current Living Situation: Spouse Current Living Situation Comment: lives at home w Feels Safe at Home: Yes Assistive Devices: None Review of Systems Constitutional: + chills and + anorexia; no fever Respiratory: no dyspnea Cardiovascular: no chest pain Gastrointestinal: + abdominal pain (over wound site), + na usea, + vomiting (x1 small) and + diarrhea/loose stools; no blood in stools some wound pain, redness, and drainage Physical Exam Physical Exam: awake/alert, no distress Respiratory: some coughing Gastrointestinal (Abdomen): Percussion/Palpation: + abdomen tender (tenderness to left lower abdominal wound) and abdomen soft + erythema, tenderness, and slight drain age from an opening in incision Results & Data Results & Data Vital Signs (Past 12 Hours) Vital Signs Temp Pulse Resp BP Pulse Ox O2 Del Method 01/26/24 16:10 93 H 01/26/24 13:37 98.4 F 116 H 18 113/76 90 Room Air Diagnostic Findings ABDOMEN AND PELVIS CT WITH IV CONTRAST CT DOSE: 641.82 mGy.cm HISTORY: Colostomy reversal, infection TECHNIQUE: Multiaxial CT images of the abdomen and pelvis were performed following the use of intravenous contrast. A dose lowering technique was utilized adhering to the principles of ALARA. COMPARISON STUDY: Abdomen and pelvis CT 04/06/2023 FINDINGS: There are lung bases are clear. There are scattered linear and nodular densities within the base of the left lower lobe. Dominant nodule on image 52 measures 8 mm. This may represent a resolving pneumonitis and could be due to prior aspiration. There are 3 cannulated screws within the proximal right femur. No acute fracture identified. The heart is mildly enlarged. There is a small hiatus hernia. Prior cholecystectomy. This likely accounts for the mild bile duct dilatation. No hepatic or splenic masses. The adrenal glands and pancreas unremarkable. No hydronephrosis. Multiple bilateral renal hypodense lesions again noted with the largest within the right mid kidney measuring 3.6 cm. These favor cysts. There are few represents bilateral renal lesions with the largest within the mid right kidney on image 94 measuring 1 cm. These are stable compared the prior study and favor hyperdense cysts main portal vein is patent. Calcified plaque within the normal caliber abdominal aorta. No retroperitoneal or pelvic lymphadenopathy. Normal bladder. There is a 14 mm enhancing nodule within the uterine fundus. This favors a fibroid. Anastomotic suture material seen at the rectosigmoid junction with mild surrounding inflammatory change and presacral edema. This favors recent postoperative changes status post reversal of a colostomy. There are few punctate foci of gas adjacent to the anastomotic suture material which appear to be within small diverticula. Otherwise, no loculated fluid collections to suggest an anastomotic leak at this time. Mild thickening at the anastomosis site favors postoperative change. A nonspecific colitis also remains in the differential diagnosis. Multiple scattered colonic diverticula are noted. No dilated loops of bowel to suggest an obstruction. Normal appendix. Focal area of subcutaneous fat stranding and a small amount of ill-defined subcutaneous fluid within the left lower quadrant anterior abdominal wall best seen on image 191. This measures approximately 6.5 cm. There is overlying skin thickening. This likely represents recent postoperative change. Underlying phlegmon/infectious process also remains in the differential diagnosis. However, no loculated fluid collections at this time to suggest an abscess. Scattered areas of gas within the anterior abdominal wall likely due to the recent postoperative change. IMPRESSION: 1. Focal area of subcutaneous fat stranding and a small amount of ill-defined subcutaneous fluid within the left lower quadrant anterior abdominal wall which measures approximately 6.5 cm. There is overlying skin thickening. This likely represents recent postoperative change. Underlying phlegmon/infectious process also remains in the differential diagnosis. However, no loculated fluid collections at this time to suggest an abscess. 2. Scattered areas of gas within the anterior abdominal wall likely due to the recent postoperative change. 3. Anastomotic suture material seen at the rectosigmoid junction with mild surrounding inflammatory change and presacral edema. This favors recent postoperative changes status post reversal of a colostomy. There are few punctate foci of gas adjacent to the anastomotic suture material which appear to be within small diverticula. Otherwise, no loculated fluid collections or extraluminal gas to suggest an anastomotic leak at this time. 4. There are scattered linear and nodular densities within the base of the left lower lobe. Dominant nodule measures 8 mm. This may represent a resolving pneumo nitis and could be due to prior aspiration. Follow-up chest CT in 6 months recommended to ensure resolution. 5. Additional findings as described above. ACT 112: Negative or not required by law. Electronically signed by: Sandip Canales M.D. 01/26/2024 4:26 PM PG Care Time/CCT Total # of Minutes Spent Total Time Spent with Patient: Total time spent is greater than 50% in coordination of care (as documented) at patient's floor/unit and/or counseling patient: Coding Level of Care Code None Diagnoses Wound infection after surgery T81.49XA
[2024-01-26] MEDS: SODIUM CHLORIDE 0.9% 1,000 ML IV ONE (16:33)
[2024-01-26] MEDS: PIPERACILLIN/TAZOBACTAM 4.5 GM/100 ML BAG IV ONE (16:33)
[2024-01-26] MEDS ORDERED: ACETAMINOPHEN 1,000 MG/100 ML VIAL IV PRN (18:37)
[2024-01-26] MEDS ORDERED: ACETAMINOPHEN 325 MG TAB PO PRN (18:37)
[2024-01-26] MEDS ORDERED: ALBUTEROL HFA 8 GM INHALER INH PRN (18:37)
[2024-01-26] MEDS ORDERED: MoRPHine SULFATE 2 MG/ML CARP IV PRN (18:37)
[2024-01-26 18:38] LABS: Appearance Urine Clear (Clear); Bacteria Urine Automated None Seen (None Seen); Bilirubin Urine Negative (Negative); Blood Urine 2+ (Negative); Cast Urine Automated 0-2 /lpf (0-2); Color Urine Yellow; Epithelial Cell Urine Auto 0-2 /hpf (0-2); Glucose Urine UA Negative (Negative); Ketones Urine 3+ (Negative); Leukocyte Esterase Urine Trace (Negative); Nitrite Urine Negative (Negative); Protein Urine Trace (Negative); Specific Gravity Urine > 1.045 (1.000-1.030); Urobilinogen Urine Negative (Negative); pH Urine 5.5 (4.5-7.5)
[2024-01-26] MEDS: LACTATED RINGER'S 1,000 ML IV SCH (19:46)
[2024-01-26] MEDS: POTASSIUM CHLORIDE CRTAB 20 MEQ TABCR PO SCH (20:38)
[2024-01-26] MEDS: LORATADINE 10 MG TAB PO SCH (20:38)
[2024-01-26] MEDS: MAGNESIUM CHLORIDE W/CALCIUM 64MG DELAYED REL TAB PO SCH (20:38)
[2024-01-26] MEDS: PANTOprazole 40 MG TAB PO SCH (20:39)
[2024-01-26] MEDS: MONTELUKAST SODIUM 10 MG TABLET PO SCH (20:39)
[2024-01-26] MEDS: ROSUVASTATIN CALCIUM 20 MG TAB PO SCH (20:39)
[2024-01-26] MEDS: PIPERACILLIN/TAZOBACTAM 4.5 GM/100 ML BAG IV SCH (21:45)
[2024-01-27 07:49] LABS: Basophils # (auto) 0.03 K/uL (0.00-0.20); Basophils % (auto) 0.4 %; Eosinophils # (auto) 0.19 K/uL (0.00-0.50); Eosinophils % (auto) 2.4 %; Hematocrit (blood only) 28.3 % (37.0-47.0); Hemoglobin 9.4 g/dl (12.0-16.0); Immature Granulocytes # (auto) 0.02 K/uL (0.01-0.20); Immature Granulocytes % (auto) 0.3 %; Lymphocytes # (auto) 1.48 K/uL (1.20-3.40); Lymphocytes % (auto) 18.8 %; Mean Corpuscular Hemoglobin 28.8 pg (25.0-34.0); Mean Corpuscular Hgb Conc 33.2 g/dL (32.0-36.0); Mean Corpuscular Volume 86.8 fL (80.0-100.0); Mean Platelet Volume 9.6 fL (9.4-12.4); Monocytes # (auto) 0.46 K/uL (0.11-0.59); Monocytes % (auto) 5.8 %; Neutrophils # (auto) 5.69 K/uL (1.40-6.50); Neutrophils % (auto) 72.3 %; Platelet Count 282 K/uL (130-400); RDW Coefficient of Variation 12.8 % (11.5-14.5); RDW Standard Deviation 40.8 fL (36.4-46.3); Red Blood Count 3.26 M/uL (4.20-5.40); White Blood Count 7.87 K/ul (4.8-10.8)
[2024-01-27 08:03] LABS: BUN Creatinine Ratio 27.3 (10-20); Creatinine Clr Calc Pharmacy 84.7 ml/min; Est GFR (African American) 112.8 ml/min; Est GFR (Non-African American) 97.4 ml/min; Potassium 3.7 mmol/L (3.5-5.1)
[2024-01-27] MEDS: METOPROLOL SUCC 25MG EXT REL TAB PO SCH (08:44)
[2024-01-27] MEDS: MULTIVITAMIN TAB PO SCH (08:45)
--- NOTE | 2024-01-27 10:27 | Surgery Progress Note ---
Date of Service January 27, 2024 Assessment & Plan (1) Cellulitis: (2) Wound infection after surgery: Plan: Involving a contaminated wound preoperatively at old colostomy site. The robotic incision sites are without infection, intact and healed very well Continue IV antiobiotics until cellulitis is resolved. Then d/c on oral antibiotics, follow up with me in the office next week Change packing BID while in the hospital Home nursing for daily packing/dressing changes Probiotics Chemical DVT ppx [facility] (Dr. Mayorga) will be covering this weekend. Admission and Anticipated Discharge Date Admission Date: January 26, 2024 Subjective I have seen and examined this patient this am. She is comfortable, eating, passing flatus and had a normal, solid BM. Drainage from the prior colostomy site itself. Physical Exam Gastrointestinal (Abdomen): Decreasing erythema around the colostomy site. Previously placed packing removed. The area was re-packed with packing, covered with dry gauze and secured in place with tape Results & Data Vital Signs (Past 12 Hours) Vital Signs Temp Pulse Resp BP Pulse Ox O2 Del Method 01/27/24 07:17 36.9 C 72 17 102/54 L 95 Room Air 01/26/24 23:16 36.3 C L Laboratory Results leukocytosis resolved PG Care Time/CCT Total # of Minutes Spent Total Time Spent with Patient: Total time spent is greater than 50% in coordination of care (as documented) at patient's floor/unit and/or counseling patient: Coding Level of Care Code 24619 Post Operative Follow-Up Diagnoses Cellulitis L03.311 Site of cellulitis: trunk Site of cellulitis of trunk: abdominal wall Wound infection after surgery T81.49XA (1) Cellulitis Site of cellulitis: trunk Site of cellulitis of trunk: abdominal wall Qualified Code(s): L03.311 - Cellulitis of abdominal wall
[2024-01-27] MEDS: oxyCODONE HCL IR 5 MG TAB (IMMEDIATE RELEASE) PO PRN (19:35)
[2024-01-28 06:01] LABS: Basophils # (auto) 0.02 K/uL (0.00-0.20); Basophils % (auto) 0.4 %; Eosinophils # (auto) 0.43 K/uL (0.00-0.50); Eosinophils % (auto) 8.1 %; Hematocrit (blood only) 31.6 % (37.0-47.0); Hemoglobin 9.9 g/dl (12.0-16.0); Lymphocytes # (auto) 1.96 K/uL (1.20-3.40); Lymphocytes % (auto) 36.9 %; Mean Corpuscular Hemoglobin 27.7 pg (25.0-34.0); Mean Corpuscular Hgb Conc 31.3 g/dL (32.0-36.0); Mean Corpuscular Volume 88.5 fL (80.0-100.0); Mean Platelet Volume 9.6 fL (9.4-12.4); Monocytes # (auto) 0.37 K/uL (0.11-0.59); Neutrophils # (auto) 2.53 K/uL (1.40-6.50); Neutrophils % (auto) 47.6 %; Platelet Count 322 K/uL (130-400); RDW Coefficient of Variation 12.6 % (11.5-14.5); RDW Standard Deviation 41.1 fL (36.4-46.3); Red Blood Count 3.57 M/uL (4.20-5.40); White Blood Count 5.31 K/ul (4.8-10.8)
[2024-01-28 06:11] LABS: BUN Creatinine Ratio 23.4 (10-20); Creatinine Clr Calc Pharmacy 79.3 ml/min; Est GFR (African American) 110.4 ml/min; Est GFR (Non-African American) 95.3 ml/min; Potassium 3.6 mmol/L (3.5-5.1)
[2024-01-28] MEDS: ENOXAPARIN INJ 40 MG/0.4 ML SYR SQ SCH (09:09)
[2024-01-28] MEDS: ADVANCED PROBIOTIC 625 MG CAPSULE PO SCH (09:10)
--- NOTE | 2024-01-28 12:05 | Surgery Progress Note ---
Date of Service January 28, 2024 Assessment & Plan (1) Cellulitis: (2) Wound infection after surgery: Plan: Involving a contaminated wound preoperatively at old colostomy site. The robotic incision sites are without infection, intact and healed very well Continue IV antiobiotics until cellulitis is resolved. Then d/c on oral antibiotics, follow up with me in the office next week Change packing BID while in the hospital Home nursing for daily packing/dressing changes Probiotics Chemical DVT ppx possible discharge to home tomorrow Admission and Anticipated Discharge Date Admission Date: January 26, 2024 Subjective I have seen and examined this patient this am. She is comfortable, eating, passing flatus, BMs. No new complaints Physical Exam Physical Exam: awake/alert, no distress Gastrointestinal (Abdomen): Percussion/Palpation: + abdomen tender (tenderness to left lower abdominal wound) and abdomen soft Results & Data Vital Signs (Past 12 Hours) Vital Signs Temp Pulse Resp BP Pulse Ox O2 Del Method 01/28/24 07:01 36.5 C 71 16 102/58 L 93 Room Air (1) Cellulitis Site of cellulitis: trunk Site of cellulitis of trunk: abdominal wall Qualified Code(s): L03.311 - Cellulitis of abdominal wall
[2024-01-28] MEDS: SODIUM CHLORIDE 0.65% NA SOLN 45 ML (OCEAN) PRN (13:05)
[2024-01-28] MEDS: FLUTICASONE PROPIONATE NA SPR 16 GM BTL SCH (16:02)
[2024-01-28 19:10] VITALS: RESP 16
[2024-01-28] MEDS: ONDANSETRON INJ 2 MG/ML 2 ML VIAL IV PRN (19:53)
[2024-01-28] MEDS: oxyCODONE HCL IR 5 MG TAB (IMMEDIATE RELEASE) PO PRN (21:06)
[2024-01-29 07:40] VITALS: BP 109/63; PULSE 65; TEMP 97.7; O2SAT 97
[2024-01-29 08:24] LABS: Basophils # (auto) 0.03 K/uL (0.00-0.20); Basophils % (auto) 0.5 %; Eosinophils # (auto) 0.38 K/uL (0.00-0.50); Eosinophils % (auto) 6.8 %; Hematocrit (blood only) 29.9 % (37.0-47.0); Hemoglobin 9.9 g/dl (12.0-16.0); Immature Granulocytes # (auto) 0.01 K/uL (0.01-0.20); Immature Granulocytes % (auto) 0.2 %; Lymphocytes # (auto) 1.69 K/uL (1.20-3.40); Lymphocytes % (auto) 30.3 %; Mean Corpuscular Hemoglobin 28.5 pg (25.0-34.0); Mean Corpuscular Hgb Conc 33.1 g/dL (32.0-36.0); Mean Corpuscular Volume 86.2 fL (80.0-100.0); Mean Platelet Volume 9.4 fL (9.4-12.4); Monocytes % (auto) 7.2 %; Neutrophils # (auto) 3.07 K/uL (1.40-6.50); Platelet Count 348 K/uL (130-400); RDW Coefficient of Variation 12.8 % (11.5-14.5); RDW Standard Deviation 40.3 fL (36.4-46.3); Red Blood Count 3.47 M/uL (4.20-5.40); White Blood Count 5.58 K/ul (4.8-10.8)
[2024-01-29 08:42] LABS: BUN Creatinine Ratio 19.6 (10-20); Calcium 8.1 mg/dl (8.6-10.3); Creatinine Clr Calc Pharmacy 73.1 ml/min; Est GFR (African American) 107.5 ml/min; Est GFR (Non-African American) 92.8 ml/min; Potassium 3.4 mmol/L (3.5-5.1)
--- NOTE | 2024-01-29 10:57 | Surgery Progress Note ---
Date of Service January 29, 2024 Assessment & Plan (1) Cellulitis: (2) Wound infection after surgery: Plan: Involving a contaminated wound preoperatively at old colostomy site. The robotic incision sites are without infection, intact and healed very well Continue IV antiobiotics until cellulitis is resolved. Then d/c on oral antibiotics, follow up with me in the office next week Change packing BID while in the hospital Home nursing for daily packing/dressing changes Probiotics Chemical DVT ppx Discharge to home today. Admission and Anticipated Discharge Date Admission Date: January 26, 2024 Subjective I have seen and examined this patient this am. She is comfortable, eating, passing flatus, BMs. No new complaints Physical Exam Physical Exam: awake/alert, no distress Gastrointestinal (Abdomen): Percussion/Palpation: + abdomen tender (tenderness to left lower abdominal wound) and abdomen soft Results & Data Vital Signs (Past 12 Hours) Vital Signs Temp Pulse Resp BP Pulse Ox O2 Del Method 01/29/24 07:39 36.5 C 65 16 109/63 97 Room Air Laboratory Results 01/29/24 Range/Units 08:05 WBC 5.58 (4.8-10.8) K/ul RBC 3.47 L (4.20-5.40) M/uL Hgb 9.9 L (12.0-16.0) g/dl Hct 29.9 L (37.0-47.0) % MCV 86.2 (80.0-100.0) fL MCH 28.5 (25.0-34.0) pg MCHC 33.1 (32.0-36.0) g/dL RDW Std Deviation 40.3 (36.4-46.3) fL RDW Coeff of Edgard 12.8 (11.5-14.5) % Plt Count 348 (130-400) K/uL MPV 9.4 (9.4-12.4) fL Immature Gran % (Auto) 0.2 % Neut % (Auto) 55.0 % Lymph % (Auto) 30.3 % [place] % (Auto) 7.2 % Eos % (Auto) 6.8 % Baso % (Auto) 0.5 % Neut # (Auto) 3.07 (1.40-6.50) K/uL Lymph # (Auto) 1.69 (1.20-3.40) K/uL [place] # (Auto) 0.40 (0.11-0.59) K/uL Eos # (Auto) 0.38 (0.00-0.50) K/uL Baso # (Auto) 0.03 (0.00-0.20) K/uL Immature Gran # (Auto) 0.01 (0.01-0.20) K/uL Sodium 140 (136-145) mmol/L Potassium 3.4 L (3.5-5.1) mmol/L Chloride 107 (98-107) mmol/L Carbon Dioxide 28 (21-32) mmol/L Anion Gap 5 (3-11) BUN 10 (6-23) mg/dl Creatinine 0.51 L (0.6-1.2) mg/dl Est Cr Clr Drug Dosing 73.1 ml/min Est GFR ( Amer) 107.5 ml/min Est GFR (Non-Af Amer) 92.8 ml/min BUN/Creatinine Ratio 19.6 (10-20) Glucose 98 (70-99(Fasting)) mg/dl Calcium 8.1 L (8.6-10.3) mg/dl (1) Cellulitis Site of cellulitis: trunk Site of cellulitis of trunk: abdominal wall Qualified Code(s): L03.311 - Cellulitis of abdominal wall
--- NOTE | 2024-02-03 11:02 | Discharge Summary ---
Date of Service February 03, 2024 Admission HPI Per Admitting Provider This is a 78yF with a PMH of recent robotic colostomy reversal with Dr. Arnie Foss on 01/16/24 who presents to the [facility] ED on 01/26/24 with complaints of chills, nausea, along with wound pain. She was evaluated in the office today and noted to be tachycardic. On exam her abdomen showed erythema of the wound at the previous colostomy site that was reversed. Drainage of fluid concerning for infection. She has been wearing an abdominal binder. She was referred to the ER for further evaluation. Patient denies any fevers, chest pain, or shortness of breath. She says since discharge things were going well, now over the last several days developed nausea in the AM relieved with zofran. Of recent her appetite has been lower. Since dispo her BMs were normal but are now more loose over last few days. No blood in stools. In the ER she underwent a CT a/p that shows focal area of subcutaneous fat stranding and a small amount of ill-defined subcutaneous fluid within the left lower quadrant anterior abdominal wall which measures approximately 6.5 cm where the colostomy was. There is overlying skin thickening. No loculated fluid collections at this time to suggest an abscess. Principal Diagnosis colostomy site infection Discharge Data Allergies Allergy/AdvReac Type Severity Reaction Status Date / Time salicylates Allergy Severe shortness Verified 01/26/24 16:42 of breath aspirin Allergy Mild wheeze Verified 01/26/24 16:42 Consultations 01/26/24 16:27 ED Decision to Admit Stat Ordered Studies 01/26/24 15:21 CT abd pelvis IV con only Stat Hospital Course (1) Wound infection after surgery: Plan Ro was admitted with IV abx therapy for 3 days on oral diet. Bowels have continued to function, local wound care. Discharged stable condition on oral Bactrim course and office follow up with wound care. Total Time Total Time Spent Total Time Spent (In Minutes): 20 Discharge Plan Discharge Items Patient Disposition: Home - Self-Care Reason For Visit: SURG 01/15, INFECTION, SHIVERING Discharge Diagnosis: wound infection Condition on Discharge: Fair Activity: Per Instructions section Lifting: No more than 10 pounds Bathing Comment: may shower; no soaking in tubs/pools x 2 weeks Exercise/Sports: Wait until after follow-up appointment Driving/Machine Use: no driving if taking narcotics for pain Non-emergency contact: Surgeon Call non-emergency contact if: you have any medication questions, your symptoms worsen, your pain is worsening, your pain is unusual for you, you have a fever, your temperature is above 101.5, your wound has increased redness, your wound has increased drainage and your wound pain has increased Follow-up/Referrals: Manoj Weber DO [Primary Care Provider] - Chi-Lili Foss DO [Physician] - (Please call to schedule follow up in clinic within 1 week) Diet: Low Fiber Addtl Attending Provider Instructions: wound care- pack wound daily with 1/4" plain nu-gauze, cut gauze to size so a wick is visible to remove, then cover with dry 4x4 gauze, ABD pad, and medipore tape complete full course of antibiotics may utilize narcotic pain meds if needed with dressing changes Pending Studies at Discharge: No Stand-Alone Forms: My [facility] [employer], Smoking Cessation Medications and DC Order Prescriptions: New oxycodone 5 mg tablet 5 - 10 mg PO .[id number] PRN (Reason: pain, for initial therapy, max 6 tabs per day) Qty: 10 0RF sulfamethoxazole-trimethoprim [Bactrim DS] 800-160 mg tablet 1 tab PO BID Qty: 14 0RF Continued multivitamin Tablet 1 tab PO QAM Qty: 0 metoprolol succinate 25 mg tablet extended release 24 hr 25 mg PO QAM cholecalciferol (vitamin D3) [Vitamin D3] 1,000 unit Capsule 1,000 unit PO QPM fluticasone propionate [Flonase Allergy Relief] 50 mcg/actuation [place],Suspension 1 spray INTRANASAL DAILY PRN (Reason: Allergy Symptoms) rosuvastatin 20 mg tablet 20 mg PO HS Prolia 60 mg/mL syringe 60 mg SUBCUT UD Rx Instructions: Every 6 months montelukast 10 mg tablet 10 mg PO QPM magnesium chloride [Mag 64] 64 mg Tablet,Delayed Release (Dr/Ec) 64 mg PO BID Qty: 60 0RF cranberry 400 mg Capsule 400 mg PO QAM Rx Instructions: administer with a meal calcium 100 mg Capsule 100 mg PO QAM omeprazole 20 mg Tablet,Delayed Release (Dr/Ec) 20 mg PO BID albuterol sulfate 90 mcg/actuation HFA aerosol inhaler 2 inh INHALATION Q6H PRN (Reason: sob) loratadine 10 mg Tablet 10 mg PO QPM ascorbic acid (vitamin C) [Vitamin C] 500 mg Tablet,Chewable 500 mg PO DAILY potassium chloride 10 mEq capsule, extended release 20 meq PO QPM Discontinued oxycodone 5 mg tablet 5 - 10 mg PO UD MDD no more than 6 tabs in 24hours PRN (Reason: pain) Rx Instructions: Q4-6H as needed Discharge Orders: Discharge Order (Routine); Ordered 01/29/24 Ordered By: Evin Proctor/Other Patient Handouts: ED Post Op Wound Check, Infection Admission Data Admit Date/Time: 01/26/24 16:30 Attending Provider: Lili Alegre Admit Provider: Lili Alegre Primary Care Provider: Manoj Weber Other Providers: Lili Alegre; [facility] Other Interventions: Discharge Summary Assessment (RN) Last Done: 01/29/24 11:33 Coding Level of Care Code 21538 IN/OBS DISCH 30 MIN/LESS Diagnoses Wound infection after surgery T81.49XA
== END 2024-01-29 12:48 | disposition home or self-care (01) | DRG 863 ==
LOC: ED 13:24 → 3N 16:30